=== PATIENT | female | born 1955 | race Caucasian/White ===

== ENCOUNTER 2019-07-23 13:54 | Outpatient (CLI) | payer MEDICARE, SELFPAY ==
--- NOTE | 2019-07-23 | XR_ITS ---
WS: [id number] FOOT RIGHT TECHNIQUE: 3 views of the right foot CLINICAL INFORMATION: PAIN IN METATARSUS COMPARISON: None. FINDINGS: Hallux valgus. No acute fractures. Soft tissue edema lower leg and ankle. Normal tarsal metatarsal al ignment. Normal metatarsals. Achilles enthesophyte. IP joint narrowing. XR/XR foot RT min 3V* [id number] IMPRESSION: 1. Soft tissue edema first digit. 2. No acute fractures or osteomyelitis. 3. Hallux valgus.
--- NOTE | 2019-07-23 | XR_ITS ---
WS: [id number] TOE RIGHT TECHNIQUE: 3 views of the right First toe CLINICAL INFORMATION: GREAT TOE PAIN RIGHT COMPARISON: None. FINDINGS: Soft tissue edema first digit. No acute fractures. No evidence of osteomyelitis. Anikacecilmiley eulaliacheri kapoorKarissa XR/XR toe RT min 2V [id number] IMPRESSION: Soft tissue edema first digit. No acute fractures
== END 2019-07-23 13:55 | disposition home or self-care (01) ==
PROVIDERS: Family Provider Family Medicine; PCP Family Medicine; Visit Provider Family Medicine
DX: Z76.89 Persons encountering health services in other specified circumstances (principal)

== ENCOUNTER 2019-11-21 12:42 | Outpatient (CLI) | payer MEDICARE, SELFPAY ==
--- NOTE | 2019-11-21 12:50 | CT_ITS ---
WS: [id number] CT abdomen w con* [id number] REASON FOR EXAM: ADENOCARCINOMA OF GALLBLADDER IV CONTRAST ADMINISTERED: Omnipaque 300, 95 mL. TOTAL EXAM DLP: 802.[address] scans at [facility] use at least one of these dose optimization techniques: automat ed exposure control; mA and/or kV adjustment per patient size (includes targeted exams where dose is matched to clinical indication); or iterative reconstruction. FINDINGS: The lower lung rodarte and mediastinum were normal. The liver shows mild fatty infiltration. Remanence of the gallbladder noted but no abnormality in what remains.. The common bile duct is dilat ed to 1.73 cm no definite tones or masses in the distal common duct are seen. The head of the pancreas is slightly prominent the body and tail are atrophic are poorly seen. This f indings was seen on previous exam dated 2013 and at that time ERCP was recommended. 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 The small bowel appear to be normal. The large bowel show no abnormalities. The pelvis was not completely evaluated. CT/CT abdomen w con* [id number] IMPRESSION: Remanence of the gallbladder is seen. The common bile duct is dilated severely in the head of the pancreas with abrup t changes and atrophy of the body and tail of pancreas are seen. The left kidney shows genital cross fusion No definite lymphadenopathy is seen in the aorta are inferior vena cava region
--- NOTE | 2019-11-21 12:50 | CT_ITS ---
WS: [id number] CT CHEST TECHNIQUE: Noncontrast CT of the chest with coronal and sagittal reformatted images. CLINICAL INFORMATION: MULTIPLE LUNG NODULES COMPARISON: 09/18/2014 and 03/15/2014 DLP: All CT scans at [facility] use at least one of these dose optimization techniques: automat ed exposure control; mA and/or kV adjustment per patient size (includes targeted exams where dose is matched to clinical indication); or iterative reconstruction. FINDINGS: Again seen are subcentimeter noncalcified bilateral pulmonary nodules. Subpleural nodules in the rig ht lower lobe are similar in configuration to 2014 and slight increase in size measuring 1.4 x 1.1 cm medially with the more lateral subpleural nodular opacity measuring 0.9 x 0.6 cm. Noncalcified nodul e right upper lobe measuring 3.8 mm is stable.Stable tiny subcentimeter nodule in the superior segmen t left lower lobe measuring 5 mm. Stable ectatic ascending thoracic aorta measuring 4.1 x 3.9 CM. Calcified granulomatous disease. Calc ified hilar mediastinal lymph nodes. Cholecystectomy clips. Adrenal glands are normal. No axillary ly mphadenopathy. No other suspicious pulmonary opacities. No acute pulmonary infiltrates. No consolidat ion or pleural fluid. CT/CT chest wo con [id number] IMPRESSION: 1. Subpleural nodules with pleural thickening in the right lower lobe have inc reased in size since measuring 1.4 x 1.1 cm medially and 0.9 x 0.6 cm laterally with associated increased pleural thickening today. Recommend 6 month follow-up. 2. Remainder of the subcentimeter previously described pulmonary nodules are s table. 3. Stable ectatic ascending thoracic aorta measuring 4.0 x 3.9 CM. 4. No mediastinal or hilar lymphadenopathy. 5. Vascular calcification including coronary. 6. Cholecystectomy clips.
[2019-11-21] MEDS: iodixanol 320 mg/mL 100mL Btl IV (13:03)
== END 2019-11-21 12:43 | disposition home or self-care (01) ==
LOC: RADWPI 12:50
PROVIDERS: Family Provider Family Medicine; PCP Family Medicine; Visit Provider Family Medicine
DX: R91.8 Other nonspecific abnormal finding of lung field (principal); C23 Malignant neoplasm of gallbladder; I77.810 Thoracic aortic ectasia; I25.10 Atherosclerotic heart disease of native coronary artery without angina pectoris; Q63.1 Lobulated, fused and horseshoe kidney
CPT/HCPCS: 71250; 74160; Q9967

== ENCOUNTER 2019-12-03 14:09 | Outpatient (CLI) | payer MEDICARE, SELFPAY ==
--- NOTE | 2019-12-03 14:25 | MR_ITS ---
WS: [id number] MRI BRAIN WITHOUT CONTRAST HISTORY: BRAIN MASS COMPARISON: 03/04/2017 TECHNIQUE: Diffusion imaging, multiplanar T1, T2 and FLAIR imaging obtained. No evidence for acute infarct or hemorrhage. Ellington-white matter differentiation is normal. Minimal chronic white matter changes. Again noted is a lobulated mass containing fat signal in the RI GHT suprasellar cistern measuring 10 x 7 mm. The lesion follows fat signal on all sequences without i ncrease in size. No hydrocephalus. Mass is just anterior to the tectal plate and inferior to the hypo thalamus. Ventricles are normal size. No inferior displacement of cerebellar tonsils. The sella turcica and pituitary gland are unremarkabl e. Posterior fossa is also unremarkable. Dural venous sinuses and capitan grande band of [place] demonstrate no abnormality on this unenhanced studies. Paranasal sinuses: Small mucous retention cyst in the posterior LEFT maxillary sinus. Mastoid air cells: Normal. Calvarium and scalp: Intact. MR/MR head wo con* [id number] IMPRESSION: 1. Stable lobulated fat signal lesion in the RIGHT suprasellar region. Mass me asures 10 x 7 mm and is stable. 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 2. Very minimal chronic microvascular ischemic disease. 3. No progression of disease since the prior study.
== END 2019-12-03 14:10 | disposition home or self-care (01) ==
LOC: RADWPI 14:11
PROVIDERS: Family Provider Family Medicine; PCP Family Medicine; Visit Provider Family Medicine
DX: G93.9 Disorder of brain, unspecified (principal)
CPT/HCPCS: 70551; A9579

== ENCOUNTER → 2020-03-19 15:14 | Outpatient (BNVA) | payer MEDICARE, SELFPAY | PROVIDERS: Family Provider Family Medicine; PCP Family Medicine; Visit Provider Podiatrist Foot & Ankle Surgery | DX: S99.921A Unspecified injury of right foot, initial encounter (principal); X58.XXXA Exposure to other specified factors, initial encounter | CPT/HCPCS: 73630 ==

== ENCOUNTER 2020-07-18 14:10 | Outpatient (CLI) | payer OTHER, SELFPAY ==
--- NOTE | 2020-07-18 14:40 | XR_ITS ---
WS: [id number] Bone mineral density performed on a [employer], 07/18/2020 Clinical data: POSTMENOPAUSAL Findings: The first 4 lumbar vertebral bodies demonstrated the bone mineral density of 1.103 g/cm2 for a young adult T score of -0.6. There is a dextroscoliosis of the lumbar spine. Measurement of the left hip reveals a bone mineral density of 0.883 g/cm2 with a young adult T score of -1.0. Measurement of the right hip reveals the bone mineral density of 0.982 g/cm2 for young adult T score of -0.2. XR/XR DEXA axial skeleton* [id number] Impression: The bone mineral density of the lumbar spine and both hips is normal.
--- NOTE | 2020-07-18 15:16 | MM_ITS ---
WS: [id number] BILATERAL DIGITAL SCREENING MAMMOGRAPHY WITH CAD CLINICAL INFORMATION: SCREENING HISTORY: Screening mammogram. Patient reported palpable lump left breast. COMPARISON: July 07, 2011 TECHNIQUE: Bilateral CC and MLO views. FINDINGS: Scattered fibroglandular densities bilaterally. Lucent centered calcifications. Palpable marker left breast. No underlying mammographic abnormalities. Recommend spot compression views and ultrasound are a of concern. Right breast is unremarkable and unchanged. MM/[place] [id number] IMPRESSION: BI-RADS: 0-Incomplete: Need additional imaging evaluation FOLLOW UP: Need Additional Imaging RECOMMEND LEFT BREAST DIAGNOSTIC MAMMOGRAPHY AND ULTRASOUND IN THE AREA OF PALP ABLE ABNORMALITY.
== END 2020-07-18 14:11 | disposition home or self-care (01) ==
PROVIDERS: PCP Family Medicine; Visit Provider Nurse Practitioner
DX: Z12.31 Encounter for screening mammogram for malignant neoplasm of breast (principal); Z78.0 Asymptomatic menopausal state; R92.1 Mammographic calcification found on diagnostic imaging of breast
CPT/HCPCS: 77067; 77080

== ENCOUNTER 2020-08-11 16:44 | Emergency (ER) | payer SELFPAY ==
[2020-08-11 17:07] VITALS: BP 170/96; PULSE 83; RESP 14; TEMP 37; O2SAT 97; BMI 30.7
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
[2020-08-11 17:31] VITALS: BP 179/115; PULSE 89; RESP 16; O2SAT 98
--- NOTE | 2020-08-11 17:48 | PC.NURSE ---
Read and agree with assessment.
== END 2020-08-11 17:58 | disposition home or self-care (01) ==
PROVIDERS: Emergency Provider Nurse Practitioner Family; PCP Family Medicine
DX: Z04.1 Encounter for examination and observation following transport accident (principal); Z79.01 Long term (current) use of anticoagulants; I48.91 Unspecified atrial fibrillation; I10 Essential (primary) hypertension; F17.210 Nicotine dependence, cigarettes, uncomplicated; V89.2XXA Person injured in unspecified motor-vehicle accident, traffic, initial encounter
CPT/HCPCS: 73562; 99282

== ENCOUNTER 2020-09-03 11:18 | Emergency (ER) | payer OTHER, SELFPAY ==
[2020-09-03 11:41] VITALS: BP 154/84; PULSE 64; RESP 18; TEMP 36.3; O2SAT 97; BMI 30.7
[2020-09-03 11:46] VITALS: BP 124/75; PULSE 56; RESP 18; O2SAT 98
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
[2020-09-03 12:59] LABS: Basophils % 0.8 %; Eosinophils # 0.2 10^3/uL (0.0-0.8); Eosinophils % 3.2 %; Hematocrit 44.1 % (37.0-47.0); Hemoglobin 13.7 g/dL (11.5-15.3); Lymphocytes # 1.3 10^3/uL (0.8-4.8); Lymphocytes % 24.9 %; Mean Corpuscular HGB Conc 31.1 g/dL (30.0-36.0); Mean Corpuscular Hemoglobin 27.6 pg (28.0-34.0); Mean Corpuscular Volume 88.9 fL (81-99); Mean Platelet Volume 10.2 fL (7.4-10.4); Monocytes # 0.6 10^3/uL (0.2-0.9); Monocytes % 11.5 %; Neutrophils # 2.98 10^3/uL (1.8-7.7); Neutrophils % 59.2 %; Nucleated Red Blood Cells % 0 %; Platelet Count 216 10^3/cmm (130-400); Red Blood Count 4.96 10^6/uL (4.1-5.3); Red Cell Distribution Width 13.7 % (12.1-15.1)
[2020-09-03 13:13] LABS: Alanine Aminotransferase 12 U/L (0-33); Albumin Level 3.9 g/dL (3.5-5.2); Alkaline Phosphatase 84 IU/L (35-105); Anion Gap 13.3 (5-19); Aspartate Amino Transferase 15 U/L (0-32); Blood Urea Nitrogen 17 mg/dL (8-23); C Reactive Protein 9.1 mg/L (0.0-4.9); Calcium 9.5 mg/dL (8.5-10.5); Carbon Dioxide 25 mmol/L (22-29); Chloride 105 mmol/L (98-107); Creatinine Clr Calc Pharmacy 76.4991; Globulin 3.5 g/dL (1.3-4.6); Glomerular Filtration Rate 71.8 mL/min (90-130); Glucose 92 mg/dL (65-115); Osmolality Calculated 289 mOsm/kg (285-295); Potassium 4.3 mmol/L (3.5-5.1); Sodium 139 mmol/L (136-145); Total Bilirubin 0.4 mg/dL (0.15-1.2); Total Protein 7.4 g/dL (6.6-8.7)
[2020-09-03 13:45] VITALS: BP 152/74; PULSE 72; RESP 55; TEMP 36.8; O2SAT 94
== END 2020-09-03 13:54 | disposition home or self-care (01) ==
PROVIDERS: Emergency Provider Physician Assistant; PCP Family Medicine
DX: M25.461 Effusion, right knee (principal); Z79.01 Long term (current) use of anticoagulants; I48.91 Unspecified atrial fibrillation; I10 Essential (primary) hypertension; F17.210 Nicotine dependence, cigarettes, uncomplicated
CPT/HCPCS: 80053; 85025; 86140; 99282

== ENCOUNTER 2020-12-02 16:20 | Outpatient (CLI) | payer MEDICARE, SELFPAY ==
--- NOTE | 2020-12-02 16:56 | MR_ITS ---
WS: [id number] MRI RIGHT KNEE NONCONTRAST TECHNIQUE: Axial PD, coronal PD fat sat, coronal PD, sagittal PD, and sagittal PD fat-sat images obta ined. CLINICAL INFORMATION: M25.461 - Effusion, right knee COMPARISON: None. FINDINGS: Distal quadriceps and patella tendons are intact. Hypertrophic patella. Small suprapatellar effusion. Small amount of prepatellar and infrapatellar soft tissue edema. Thinning and laxity involving the A CL with intrasubstance partial tear involving the anterior insertion and mid ACL. Recommend correlati on for ACL injury. PCL appears intact. Complex tear involving the posterior horn lateral meniscus with blunting of the posterior horn. Chron ic thinning of the medial meniscus which appears intact. 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 No subchondral edema. Normal medial and lateral patellar retinaculum. Medial and lateral collateral ligaments appea r intact. Moderate chondromalacia involving the medial and lateral joint compartments. MR/MR knee RT wo con* [id number] IMPRESSION: 1. Thinning with laxity involving the ACL with small intrasubstance tears invo lving the mid ACL and anterior ACL insertion. Recommend correlation for ACL inj ury. 2. PCL is intact. 3. Small suprapatellar effusion with prepatellar and infrapatellar soft tissue edema. No patellar fractures. 4. Moderate to advanced chondromalacia patella worse involving the lateral pat batsheva facet. 5. Complex tear involving posterior horn lateral meniscus with blunting of the posterior horn lateral meniscus. 6. Medial and lateral collateral ligaments appear intact. Outbridge grading:
== END 2020-12-02 16:21 | disposition home or self-care (01) ==
PROVIDERS: PCP Family Medicine; Visit Provider Orthopaedic Surgery
DX: M25.461 Effusion, right knee (principal); S83.271A Complex tear of lateral meniscus, current injury, right knee, initial encounter; X58.XXXA Exposure to other specified factors, initial encounter; M22.41 Chondromalacia patellae, right knee
CPT/HCPCS: 73721

== ENCOUNTER → 2021-01-22 15:55 | Outpatient (BNVA) | payer MEDICARE, SELFPAY | PROVIDERS: PCP Family Medicine; Visit Provider Internal Medicine Cardiovascular Disease | DX: I50.33 Acute on chronic diastolic (congestive) heart failure (principal); R06.02 Shortness of breath; R06.00 Dyspnea, unspecified | CPT/HCPCS: 80048; 83880 ==

== ENCOUNTER 2021-01-29 14:06 | Outpatient (CLI) | payer MEDICARE, SELFPAY ==
--- NOTE | 2021-01-29 14:15 | USCV_ITS ---
Kaity Ferro Age: 65 Gender: F : 1955 Exam Date: 01/29/2021 14:36 Ordering Phys: Ida Phipps MD ([email or web address]) Technologist: Benito Olson [place] [facility] [place] HISTORY: PROCEDURES: FINDINGS: There is no evidence of bilateral deep vein thrombosis. No evidence of superficial thrombosis in the bilateral saphenous system. No evidence of reflux was noted in the bilateral deep venous system. No venous reflux noted in the bilateral greater saphenous vein. No venous reflux noted in the bilateral small saphenous vein. The veins were found to be easily compressible with spontaneous blood flow. Non pulsatile flow pattern. CONCLUSIONS No evidence of DVT or superficial vein thrombosis in the above- mentioned identifiable veins. No significant venous reflux either in the deep or superficial veins bilaterally. Normal caliber veins bilaterally Venous dimensions as mentioned above Dr Ida Phipps MD FACC (Electronically Signed) Final Date: 29 January 2021 23:52 S
== END 2021-01-29 14:07 | disposition home or self-care (01) ==
PROVIDERS: PCP Family Medicine; Visit Provider Internal Medicine Cardiovascular Disease
DX: M79.89 Other specified soft tissue disorders (principal)
CPT/HCPCS: 93970

== ENCOUNTER → 2021-03-24 14:22 | Outpatient (BNVA) | payer MEDICARE, SELFPAY | PROVIDERS: PCP Family Medicine; Referring Provider Family Medicine; Visit Provider Orthopaedic Surgery | DX: M54.9 Dorsalgia, unspecified (principal) | CPT/HCPCS: 72110 ==

== ENCOUNTER 2021-04-17 09:19 | Outpatient (CLI) | payer MEDICARE, SELFPAY ==
--- NOTE | 2021-04-17 09:30 | MR_ITS ---
WS: [id number] MRI LUMBAR SPINE NONCONTRAST TECHNIQUE: Sagittal T1, T2 and STIR imaging. Axial T1 and T2 imaging. CLINICAL INFORMATION: M54.9 - Dorsalgia, unspecified COMPARISON: None. FINDINGS: Minimal lumbar curve. No acute compression. No high-grade central canal stenosis. Slight retrolisthes is L5 on S1. L1-L2: Normal. L2-L3: Mild annular bulging. Slight narrowing of the left subarticular recess. Spinal canal and betsy en are patent. Mild facet arthropathy. L3-L4: Mild annular bulging with slight effacement of ventral thecal sac. Slight impingement traversi ng right greater than left L4 nerve roots. Moderate facet arthropathy. Foramen are patent. L4-L5: Mild disc bulging with impingement on the right subarticular recess and traversing right L5 ne rve root. Moderate facet arthropathy. Spinal canal is patent. Foramen are patent. L5-S1: Slight anterolisthesis L5 on S1. Mild disc bulging with osteophytic ridging impinges the trave rsing left S1 nerve root in the subarticular recess. Mild central canal stenosis. Grade 1 anterolisth esis. Severe right and mild left foraminal narrowing. Advanced left facet arthropathy. Visualized pelvic bony structures: Normal. Paravertebral soft tissues: Normal. 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 Stable dilatation of the common bile duct at the pancreas. MR/MR lumbar spine wo con* [id number] IMPRESSION: 1. Mild lumbar curve. No acute compression. No high-grade central canal stenos is. 2. Grade 1 anterolisthesis L5 on S1 with mild central canal stenosis. Impingem ent traversing left S1 nerve root in the subarticular recess. 3. Severe right L5-S1 foraminal narrowing impinges the exiting right L5 nerve root. 4. Disc bulging L3-4 with impingement on the traversing right greater than lef t L4 nerve roots. 5. Disc bulging L4-5 impinges the traversing right L5 nerve root with mild rig ht foraminal narrowing. 6. Advanced facet arthropathy left L5-S1.
== END 2021-04-17 09:20 | disposition home or self-care (01) ==
LOC: RADSHAW 09:21
PROVIDERS: PCP Family Medicine; Visit Provider Orthopaedic Surgery
DX: M54.16 Radiculopathy, lumbar region (principal); M48.07 Spinal stenosis, lumbosacral region; M51.26 Other intervertebral disc displacement, lumbar region; M47.897 Other spondylosis, lumbosacral region
CPT/HCPCS: 72148

== ENCOUNTER 2021-07-16 12:26 | Outpatient (CLI) | payer MEDICARE, SELFPAY ==
--- NOTE | 2021-07-16 12:30 | CT_ITS ---
WS: [id number] CT CHEST WITHOUT INTRAVENOUS CONTRAST HISTORY: LUNG NODULE TECHNIQUE: Contiguous 5 mm axial imaging performed on the thorax. Coronal and sagittal reformats are submitted. All CT scans at [facility] use at least one of these dose optimization techniques: automated exposure control; mA and/or kV adjustment per patient size (includes targeted exams where dose is matched to clinical indication); or iterative reconstruction. CONTRAST: None DLP: 901.73 mGy.cm COMPARISON: 11/21/2019 and 09/18/2014 Lungs and central airway: Subpleural nodules at the RIGHT lung base have not significantly changed in size since 11/21/2019. Mild central cavitation within each nodule. The largest nodule posterior media lly measures 18 x 10 mm. The smaller more lateral nodule measures 7 x 14 mm. There is an additional n odule posterior to the LEFT superior major fissure measuring 5 mm which is stable. No increasing nodu le or new nodule. No pneumonia. Pleura: Normal. No pleural effusion. Heart and pericardium: Heart is moderately enlarged. Very small amount of pericardial thickening surr ounding the heart. Moderate coronary artery calcifications. Mediastinum and milli: Mediastinal and hilar lymph nodes are again identified. Some of these lymph nod es contain calcifications. Largest lymph node in the AP window measures 12 mm. Vessels: Atherosclerosis aorta and mild ectasia. Normal size pulmonary artery. Moderate coronary eleni ry calcification. Chest wall and lower neck: No soft tissue masses. Upper abdomen: Small hiatal hernia. Hepatic steatosis. Osseous structures: Prior cholecystectomy. Increase in thoracic kyphosis. CT/CT chest wo con [id number] IMPRESSION: 1. Subpleural nodules at the RIGHT lung base no change since 11/21/2019. 2. No new or increasing pulmonary nodules or mass. 3. Partially calcified mediastinal and hilar lymph nodes are stable. 4. Prior cholecystectomy. Hepatic steatosis. 5. Atherosclerosis aorta and coronary arteries.
== END 2021-07-16 12:27 | disposition home or self-care (01) ==
PROVIDERS: PCP Family Medicine; Visit Provider Family Medicine
DX: R91.8 Other nonspecific abnormal finding of lung field (principal); I70.0 Atherosclerosis of aorta; I25.10 Atherosclerotic heart disease of native coronary artery without angina pectoris; Z90.49 Acquired absence of other specified parts of digestive tract; K76.0 Fatty (change of) liver, not elsewhere classified
CPT/HCPCS: 71250

== ENCOUNTER → 2021-08-10 14:31 | Outpatient (BNVA) | payer MEDICARE, SELFPAY | PROVIDERS: PCP Family Medicine; Visit Provider Internal Medicine Cardiovascular Disease | DX: R06.02 Shortness of breath (principal); I11.0 Hypertensive heart disease with heart failure; I50.33 Acute on chronic diastolic (congestive) heart failure | CPT/HCPCS: 99214 ==

== ENCOUNTER 2021-11-13 12:21 | Outpatient (CLI) | payer MEDICARE, SELFPAY ==
--- NOTE | 2021-11-13 12:45 | USCV_ITS ---
Kaity Ferro Age: 66 Gender: F : 1955 Exam Date: 11/13/2021 13:13 Ordering Phys: Ida Phipps MD ([email or web address]) Technologist: BRIANA Exam Location: [facility] [place] Indication: DYSPNEA AND CHEST PAIN BP: 222 / 120 HR: 55 Rhythm: Sinus Technical Quality: Adequate MEASUREMENTS (Male / Female) Normal Values 2D ECHO LV Diastolic Diameter PLAX 4.8 cm 4.2 - 5.9 / 3.9 - 5.3 cm LV Systolic Diameter PLAX 2.7 cm IVS Diastolic Thickness 1.4 cm 0.6 - 1.0 / 0.6 - 0.9 cm IVS Systolic Thickness 1.9 cm LVPW Diastolic Thickness 1.4 cm 0.6 - 1.0 / 0.6 - 0.9 cm LVPW Systolic Thickness 2.2 cm LVOT Diameter 2.0 cm LV Ejection Fraction 2D Teich 75.3 % LV Ejection Fraction MOD 2C 58.8 % LV Ejection Fraction 2C AL 59.9 % LA Diameter 3.3 cm LA Width 4.2 cm LA Height 5.2 cm RA Width 3.8 cm RA Height 3.9 cm Aorta at Sinotubular Diameter 2.1 cm IVC Diameter 1.7 cm M-MODE Aortic Annulus Diameter 3.4 cm LA Ao Ratio MM 0.9 MV E Point Septal Separation 0.9 cm DOPPLER AV Peak Velocity 222.3 cm/s LVOT Peak Velocity 150.0 cm/s AV Area Cont Eq vti 2.1 cm squared AV Area Cont Eq pk 2.2 cm squared MV Peak Velocity 120.0 cm/s MV Area PHT 2.5 cm squared Mitral E to A Ratio 1.1 MV E' Velocity 55.0 cm/s Mitral E to MV E' Ratio 14.7 Mitral E to LV E' Lateral Ratio 14.3 Mitral E to LV E' Septal Ratio 15.3 TR Peak Velocity 289.9 cm/s TR Peak Gradient 33.6 mmHg TR Mean Velocity 240.5 cm/s TR Mean Gradient 24.4 mmHg TR Velocity Time Integral 99.2 cm TV Peak E Velocity 56.0 cm/s Right Atrial Pressure 3.0 mmHg Pulmonary Artery Systolic Pressu 36.6 mmHg PV Peak Velocity 120.0 cm/s RV Acceleration Time 0.1 s RV Ejection Time 0.4 s RV AcT/ET 0.2 FINDINGS Left Ventricle Normal left ventricular size and systolic function, EF 70 %. Mild left ventricular hypertrophy. Right Ventricle The right ventricle is normal in size and function. Right Atrium The right atrium is normal in size. Left Atrium Mildly increased left atrial size. Mitral Valve Moderate mitral annular calcification. Aortic Valve Thickened aortic valve. Features of aortic valve sclerosis Tricuspid Valve Trace tricuspid valve regurgitation. Estimated pulmonary artery peak systolic pressure of 37 mmHg Pulmonic Valve No gross abnormalities noted Pericardium Normal pericardium without effusion. Aorta Normal ascending aorta dimension. IVC The inferior vena cava pulmonary and hepatic veins appear normal. CONCLUSIONS Normal left ventricular size and systolic function, EF 70 %. Mild left ventricular hypertrophy. Moderate mitral annular calcification. Mildly increased left atrial size. Features of aortic valve sclerosis. Trace tricuspid valve regurgitation. Estimated pulmonary artery peak systolic pressure of 37 mmHg. Trace tricuspid valve regurgitation. Estimated pulmonary artery peak systolic pressure of 37 mmHg. There is no pericardial effusion. There are no intracardiac masses. Compared to the study from 03/22/2017, there may not be significant change Dr Ida Phipps MD FAC (Electronically Signed) Final Date: 13 November 2021 19:43 S
== END 2021-11-13 12:22 | disposition home or self-care (01) ==
PROVIDERS: PCP Family Medicine; Visit Provider Internal Medicine Cardiovascular Disease
DX: I08.2 Rheumatic disorders of both aortic and tricuspid valves (principal); R06.00 Dyspnea, unspecified
CPT/HCPCS: 93306

== ENCOUNTER 2021-11-16 07:17 | Outpatient (CLI) | payer MEDICARE, SELFPAY ==
[2021-11-16 08:40] VITALS: BMI 32.5
--- NOTE | 2021-11-16 08:40 | ECG_ITS ---
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 Interpretive Statements NAME OF STUDY: LEXISCAN SESTAMIBI STRESS TEST INDICATION: Chest Pain, PROCEDURE: At the baseline, the EKG revealed sinus bradycardia with a rate of [address]-T changes. Features of LVH. In the baseline blood pressure was 184/99 mm Hg with a heart rate of 50 beats/min. Lexiscan was infused over a period of 20 seconds. A total of 0.4 milligrams of Lexiscan was infused. The stress phase was continued for a total of 5 minutes. Heart rate at the end of the stress phase was 58 with a blood pressure 174/92. The EKG at the peak infusion revealed no significant changes. Sestamibi was injected 20 seconds after the Lexiscan infusion. Blood pressure at the end of the recovery phase was 181/91 with a heart rate of 56 per minute. CONCLUSION: 1. No significant EKG changes with the LexiScan infusion 2. No LexiScan induced chest pain or cardiac arrhythmia 3. Normal blood pressure and heart rate response 4. Sestamibi/sestamibi perfusion scan pending; see separate report. Electronically Signed On 11-20-2021 6:48:45 CDT by Ida Phipps M.D. [id number]
--- NOTE | 2021-11-16 08:41 | NMCV_ITS ---
NM dneis perf SPECT r/s* [id number] Kaity Ferro Age: 66 Gender: F : 1955 Exam Date: 11/16/2021 08:50 Ordering Phys: Ida Phipps MD ([email or web address]) Technologist: CORI Maldonado Exam Location: [facility] Indications: SHORTNESS OF BREATH, CHEST PAIN STRESS TEST Please see separate stress test report [facility] for full findings IMAGE PROTOCOL Rest/Stress 1 Lexiscan Day Radiopharmaceutical Dose (mCi) Administration Site Administered by Rest: Tc-99m 10.8 IV CORI Avila Sestamibi Stress:Tc-99m 32.7 IV CORI Avila Sestamibi Rest: 16-Nov-2021 60 Discovery 630 Stress: 16-Nov-2021 30 Discovery 630 0.4mg Lexiscan. Supine position only as patient was unable to lay prone. SPECT RESULTS Technical Quality: Good Raw Data Analysis: Normal Image Corrections: No attenuation or motion correction applied Summed Stress Score: 0 Summed Rest Score: 0 Summed Difference Score: 0 PERFUSION FINDINGS Uniform myocardial tracer uptake. No significant perfusion abnormalities FUNCTIONAL RESULTS (calculated via Gated SPECT) Stress Image LV EF (%): 79 Stress EDV (mL):103 TID: 0.83 Stress ESV (mL):22 FUNCTIONAL FINDINGS: Segmental wall motion analysis revealing no gross wall motion abnormalities. IMPRESSIONS 1. Unremarkable Myocardial perfusion imaging. 2. Normal LV ejection fraction of 39%. 3. LV wall motion analysis revealing no gross wall motion normalities. 4. Normal LV volume. 5. Low probability for coronary ischemia, based on the above findings 6. No similar previous studies are available for comparison Dr Ida Phipps MD [facility] (Electronically Signed) Final Date: 16 November 2021 17:02 S
[2021-11-16 09:46] VITALS: BP 181/91; PULSE 56
[2021-11-16] MEDS: regadenoson 0.4 Mg/5 ml Syringe IVP (09:46)
== END 2021-11-16 07:18 | disposition home or self-care (01) ==
PROVIDERS: PCP Family Medicine; Visit Provider Internal Medicine Cardiovascular Disease
DX: R06.02 Shortness of breath (principal); R07.9 Chest pain, unspecified
CPT/HCPCS: 78452; 93017; A9500; J2785

== ENCOUNTER → 2021-11-26 10:59 | Outpatient (BNVA) | payer MEDICARE, SELFPAY | PROVIDERS: PCP Family Medicine; Visit Provider Internal Medicine Cardiovascular Disease | DX: I49.5 Sick sinus syndrome (principal); G47.33 Obstructive sleep apnea (adult) (pediatric); R42 Dizziness and giddiness; I48.20 Chronic atrial fibrillation, unspecified; I10 Essential (primary) hypertension; E03.9 Hypothyroidism, unspecified; Z79.01 Long term (current) use of anticoagulants; R55 Syncope and collapse; R07.89 Other chest pain; F17.200 Nicotine dependence, unspecified, uncomplicated | CPT/HCPCS: 99214 ==

== ENCOUNTER 2021-11-26 11:54 | Observation (INO) | payer MEDICARE, SELFPAY ==
[2021-11-26] VITALS (15 sets, daily range): BP systolic 105–176; BP diastolic 75–132; PULSE 90–139; RESP 14–28; TEMP 36.7; O2SAT 90–98
--- NOTE | 2021-11-26 12:13 | ECG_ITS ---
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 Measurements Intervals [place] Rate: 114 P: IA: QRS: 38 QRSD: 98 T: 194 QT: 336 QTc: 464 Interpretive Statements ATRIAL FIBRILLATION WITH RAPID VENTRICULAR RESPONSE VOLTAGE CRITERIA FOR LVH [MEETS CRITERIA IN ONE OF: R(aVL), S(V1), R(V5), R(V5/V6)+S(V1)] ST DEVIATION AND MODERATE T-WAVE ABNORMALITY, CONSIDER LATERAL ISCHEMIA [-0.1+ mV T-WAVE IN I/aVL/V5/V6] ST DEVIATION AND MODERATE T-WAVE ABNORMALITY, CONSIDER INFERIOR ISCHEMIA [-0.1+ mV T-WAVE IN II/aVF] Compared to ECG 03/02/2017 10:15:30 No significant changes Electronically Signed On 11-26-2021 22:30:11 CDT by James Agrawal M.D. [id number] f
--- NOTE | 2021-11-26 12:13 | XR_ITS ---
WS: [email or web address] Exam: XR chest 1V portable [id number] Date/Time of Exam: 11/26/2021 12:17 PM Reason For Exam: light-headedness Comparison 03/02/2017. The lungs are clear and fully expanded. Cardiomediastinal structures are unremarkable for technique. There is rotation of the chest. No pleural effusions. Bony structures are intact. XR/XR chest 1V portable [id number] IMPRESSION: 1. No acute cardiopulmonary finding.
--- NOTE | 2021-11-26 12:17 | W.ED.GENADLT ---
HPI - General Adult General: Chief complaint: Dizziness Stated complaint: Vomiting Time Seen by Provider: 11/26/21 11:59 History of Present Illness: Patient is 66-year-old female with history of atrial fibrillation on apixaban who presents the emergency room after patient was seen earlier today at Dr. Phipps's office for complaints of lightheadedness. Patient tells me that around 11:15 AM, patient suddenly developed lightheadedness and vertigo sensation. The vertigo lasts sensation lasting for 5 to 10 minutes. Shortly after, patient has been experiencing lightheadedness throughout last hour. Patient denies any focal weakness in the arms or legs, language difficulty, facial droop or gait imbalance. Patient feels very lightheaded upon standing and ambulation. Patient denies any associate chest pain, short of breath or palpitation with the episodes of lightheadedness. Denies nauesea/vomiting, fever/chill, abdominal pain, dysuria/hematuria/polyuria, diarrhea/melena/hematochezia. Onset:1 hr ago Duration:ongoing Location:office Severity:moderate Associated symptoms: Deny chest pain, dyspnea, nausea, rash, palpitations or vomiting Review of Systems Const: Denies: fever(s) or chills Eyes: Denies: change in vision ENMT: Denies: mouth pain Card: Denies: chest pain or palpitations Resp: Denies: dyspnea or non-productive cough GI: Denies: abdominal pain, nausea, vomiting or diarrhea : Denies: dysuria Musc: Denies: extremity pain Skin/Breast: Denies: rash or new lesions Neuro: Reports: other (+vertigo, light-headedness); Denies: weakness in extremities Psych: Reports: other (Normal mood) Chance/Lymph: Denies: easy bruising PFSH ED PFSH: Medical History Adenocarcinoma of gallbladder Atrial fibrillation 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 Brother CAD (coronary artery disease) Brother , 2 brothers of heart disease CAD (coronary artery disease) Denies family history of Diabetes Clotting disorder Dementia Hyperlipidemia Psychiatric illness Chronic kidney disease (CKD) Suicide Anesthesia complication Bleeding disorder Family history of premature coronary artery disease Lung disease Cancer Hypertension Stroke Social History Smoking and tobacco status: current every day smoker Alcohol intake: never Physical Exam Const: COMMON NORMALS: alert HENMT: COMMON NORMALS: atraumatic HEAD & SCALP: atraumatic MOUTH: moist mucous membranes not abnormal Eye: COMMON NORMALS: EOMs intact bilaterally and conjunctivae normal CONJUNCTIVA: Yes conjunctivae normal Neck/C-Spine: COMMON NORMALS: full ROM and supple Resp: COMMON NORMALS: normal respiratory effort and clear to auscultation bilaterally AUSCULTATION: clear to auscultation bilaterally Cardio: COMMON NORMALS: regular rate RATE: regular rate GI: COMMON NORMALS: Soft to palpation and non-tender PALPATION: Yes Soft to palpation Extremity: COMMON NORMALS: full ROM Neuro: SENSORIUM/ORIENTATION: Yes alert MOTOR EXAM: No Abnormal motor strength present and Other motor observations present (no focal motor deficits) Psych: COMMON NORMALS: speech normal SPEECH: Yes normal speech MOOD & AFFECT: Yes euthymic mood Course Vital Signs: Vital signs: Vital Signs Temperature 98.4 F 11/27/21 04:00 Pulse Rate 86 11/27/21 10:02 Respiratory Rate 22 H 11/27/21 10:02 Blood Pressure 102/62 11/27/21 10:02 Pulse Oximetry 96 11/27/21 09:56 [facility] - General Adult Medical Decision Making 66-year-old female presenting to the emergency room with concerns of atrial fibrillation with RVR. Patient received multiple doses of rate controlling medicine and still continues to be mildly tachycardic. Patient will be admitted for observation and rate control. D-dimer TSH/T4 within normal limit. Dispositin: admission Lab Data : 11/27/21 04:51 11/27/21 04:51 Radiology Impressions Chest X-Ray 11/26/21 12:13 IMPRESSION: 1. No acute cardiopulmonary finding. Laboratory Results WBC 7.0 10^3/uL (4.0-10.0) 11/26/21 12:30 RBC 5.68 10^6/uL (4.1-5.3) H 11/26/21 12:30 Hgb 13.9 g/dL (11.5-15.3) 11/26/21 12:30 Hct 42.6 % (37.0-47.0) 11/26/21 12:30 MCV 75.0 fl (81-99) L 11/26/21 12:30 MCH 24.5 pg (28.0-34.0) L 11/26/21 12:30 MCHC 32.6 g/dL (30.0-36.0) 11/26/21 12:30 RDW 16.6 % (12.1-15.1) H 11/26/21 12:30 Plt Count 243 10^3/cmm (130-400) 11/26/21 12:30 MPV 11.1 fL (7.4-10.4) H 11/26/21 12:30 Neut % (Auto) 67.3 % 11/26/21 12:30 Lymph % (Auto) 21.7 % 11/26/21 12:30 Hartley % (Auto) 7.6 % 11/26/21 12:30 Eos % (Auto) 2.0 % 11/26/21 12:30 Baso % (Auto) 1.0 % 11/26/21 12:30 Neut # (Auto) 4.72 10^3/uL (1.8-7.7) 11/26/21 12:30 Lymph # (Auto) 1.5 10^3/uL (0.8-4.8) 11/26/21 12:30 Hartley # (Auto) 0.5 10^3/uL (0.2-0.9) 11/26/21 12:30 Eos # (Auto) 0.1 10^3/uL (0.0-0.8) 11/26/21 12:30 Baso # (Auto) 0.1 10^3/uL (0.0-0.1) 11/26/21 12:30 Nucleated RBC % (auto) 0 % 11/26/21 12:30 Nucleated RBCs # 0.0 /100WBC 11/26/21 12:30 D-Dimer 0.53 ug/mIFEU (0-0.59) 11/26/21 15:42 Sodium 139 mmol/L (136-145) 11/26/21 16:53 Potassium 3.7 mmol/L (3.5-5.1) 11/26/21 16:53 Chloride 105 mmol/L (98-107) 11/26/21 16:53 Carbon Dioxide 21 mmol/L (22-29) L 11/26/21 16:53 Anion Gap 16.7 (5-19) 11/26/21 16:53 BUN 18 mg/dL (8-23) 11/26/21 16:53 Creatinine 1.0 mg/dL (0.5-0.9) H 11/26/21 16:53 GFR Calculation 55.3 mL/min (90-130) L 11/26/21 16:53 Glucose 91 mg/dL (65-115) 11/26/21 16:53 Calculated Osmolality 289 mOsm/kg (285-295) 11/26/21 16:53 Calcium 9.1 mg/dL (8.5-10.5) 11/26/21 16:53 Magnesium 2.0 mg/dL (1.7-2.3) 11/26/21 16:53 Total Bilirubin 0.4 mg/dL (0.15-1.2) 11/26/21 16:53 AST 19 U/L (0-32) 11/26/21 16:53 ALT 15 U/L (0-33) 11/26/21 16:53 Alkaline Phosphatase 75 IU/L (35-105) 11/26/21 16:53 Troponin T Baseline 12 ng/L (0-10) H 11/26/21 16:53 Total Protein 7.6 g/dL (6.6-8.7) 11/26/21 16:53 Albumin 4.0 g/dL (3.5-5.2) 11/26/21 16:53 Globulin 3.6 g/dL (1.3-4.6) 11/26/21 16:53 Lipase 42 U/L (13-60) 11/26/21 16:53 TSH 1.49 uIU/mL (0.27-4.20) 11/26/21 16:53 Free T4 1.27 ng/dL (0.82-1.77) 11/26/21 16:53 Urine Color Yellow (Yellow) 11/26/21 15:28 Urine Appearance Clear (CLEAR) 11/26/21 15:28 Urine pH 6.5 (5-7) 11/26/21 15:28 Ur Specific Armstrong 1.005 (1.005-1.030) 11/26/21 15:28 Urine Protein Neg (Negative) 11/26/21 15:28 Urine Glucose (UA) Norm (Normal) 11/26/21 15:28 Urine Ketones Negative (Negative) 11/26/21 15:28 Urine Blood Neg (Negative) 11/26/21 15:28 Urine Nitrate Negative (Negative) 11/26/21 15:28 Urine Bilirubin Neg (Negative) 11/26/21 15:28 Urine Urobilinogen Norm mg/dL (Negative) 11/26/21 15:28 Ur Leukocyte Esterase Negative (Negative) 11/26/21 15:28 Imaging Data Other Imaging: Radiologist's impression: [address] [address] XRay Report Signed Patient: Kaity Ferro Unit #: [id number] : 1955 Age/Sex: 66 / F ADM Date: 11/26/21 Loc: ER Room/Bed: Attending Dr: Ordering Provider/Ordering MD: Bran Duffy MD Date of Service: 11/26/21 Procedure(s): XR chest 1V portable [id number] Accession Number(s): [id number] Report Number: [id number] WS: [email or web address] Exam: XR chest 1V portable [id number] Date/Time of Exam: 11/26/2021 12:17 PM Reason For Exam: light-headedness Comparison 03/02/2017. The lungs are clear and fully expanded. Cardiomediastinal structures are unremarkable for technique. There is rotation of the chest. No pleural effusions. Bony structures are intact. XR/XR chest 1V portable [id number] IMPRESSION: 1. No acute cardiopulmonary finding. ? Dictated By: Moise Lott DO Signed By: Moise Lott DO Signed Date/Time: 11/26/21 1240 DD/ 1239 Discharge Plan Discharge Patient Disposition: Admitted As Inpatient Admit Provider: Domi Child Clinical Impression: Light headedness, Atrial fibrillation with RVR Condition: Stable Coding Level of Care Code ED Central Office Trouble Shooter for Chg Fwd Exam Comprehensive
--- NOTE | 2021-11-26 12:24 | PC.NURSE ---
EKG done at 1215 and shown to ER doctor
[2021-11-26] MEDS: metoprolol tartrate 1 mg/1 mL SDV 5 mL 5 MG IVP ×2 (12:38→13:55)
[2021-11-26 12:39] LABS: Basophils # 0.1 10^3/uL (0.0-0.1); Eosinophils # 0.1 10^3/uL (0.0-0.8); Hematocrit 42.6 % (37.0-47.0); Hemoglobin 13.9 g/dL (11.5-15.3); Lymphocytes # 1.5 10^3/uL (0.8-4.8); Lymphocytes % 21.7 %; Mean Corpuscular HGB Conc 32.6 g/dL (30.0-36.0); Mean Corpuscular Hemoglobin 24.5 pg (28.0-34.0); Mean Platelet Volume 11.1 fL (7.4-10.4); Monocytes # 0.5 10^3/uL (0.2-0.9); Monocytes % 7.6 %; Neutrophils # 4.72 10^3/uL (1.8-7.7); Neutrophils % 67.3 %; Nucleated Red Blood Cells % 0 %; Platelet Count 243 10^3/cmm (130-400); Red Blood Count 5.68 10^6/uL (4.1-5.3); Red Cell Distribution Width 16.6 % (12.1-15.1)
[2021-11-26] MEDS: sodium chloride 0.9% 1,000 ML 999 ML IV (12:40)
--- NOTE | 2021-11-26 14:13 | ECG_ITS ---
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 Measurements Intervals [place] Rate: 103 P: VT: QRS: 20 QRSD: 89 T: 231 QT: 363 QTc: 477 Interpretive Statements ATRIAL FIBRILLATION WITH RAPID VENTRICULAR RESPONSE VOLTAGE CRITERIA FOR LVH [MEETS CRITERIA IN ONE OF: R(aVL), S(V1), R(V5), R(V5/V6)+S(V1)] ST DEVIATION AND MODERATE T-WAVE ABNORMALITY, CONSIDER ANTEROLATERAL ISCHEMIA [-0.1+ mV T-WAVE IN V3-V6] ST DEVIATION AND MODERATE T-WAVE ABNORMALITY, CONSIDER INFERIOR ISCHEMIA [-0.1+ mV T-WAVE IN II/aVF] Compared to ECG 11/26/2021 12:14:13 No significant changes Electronically Signed On 11-26-2021 22:31:58 CDT by James Agrawal M.D. [id number]
--- NOTE | 2021-11-26 14:17 | PC.NURSE ---
EKG done at 1415 and shown to ER doctor
--- NOTE | 2021-11-26 15:37 | PC.NURSE ---
PT placed on continuous NIBP, SpO2, and CM
[2021-11-26 16:12] LABS: Add Urine Microscopic? NO; Charge for UA Resulting for Rev
[2021-11-26 16:20] LABS: Bilirubin Urine Neg (Negative); Blood Urine Neg (Negative); Glucose Urine UA Norm (Normal); Ketones Urine Negative (Negative); Leukocyte Esterase Urine Negative (Negative); Nitrate Urine Negative (Negative); Protein Urine Neg (Negative); Specific Gravity, Urine 1.005 (1.005-1.030); Urine Appearance Clear (CLEAR); Urine Color Yellow (Yellow); Urobilinogen Urine Norm (Negative); pH Urine 6.5 (5-7)
[2021-11-26 17:03] LABS: D Dimer 0.53 ug/mIFEU (0-0.59)
[2021-11-26 17:31] LABS: Troponin(5th) Baseline 12 ng/L (0-10)
[2021-11-26 17:41] LABS: Alanine Aminotransferase 15 U/L (0-33); Alkaline Phosphatase 75 IU/L (35-105); Anion Gap 16.7 (5-19); Aspartate Amino Transferase 19 U/L (0-32); Blood Urea Nitrogen 18 mg/dL (8-23); Calcium 9.1 mg/dL (8.5-10.5); Carbon Dioxide 21 mmol/L (22-29); Chloride 105 mmol/L (98-107); Free T4 Free Thyroxine 1.27 ng/dL (0.82-1.77); Globulin 3.6 g/dL (1.3-4.6); Glomerular Filtration Rate 55.3 mL/min (90-130); Glucose 91 mg/dL (65-115); Lipase 42 U/L (13-60); Osmolality Calculated 289 mOsm/kg (285-295); Potassium 3.7 mmol/L (3.5-5.1); Sodium 139 mmol/L (136-145); Thyroid Stimulating Hormone 1.49 uIU/mL (0.27-4.20); Total Bilirubin 0.4 mg/dL (0.15-1.2); Total Protein 7.6 g/dL (6.6-8.7)
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
--- NOTE | 2021-11-26 19:20 | PC.NURSE ---
Attempted to call report, nurse unavailable and will call me back
[2021-11-26 19:48] LABS: Troponin 5 2HR 12.93 ng/L (0-10)
[2021-11-26 19:53] LABS: Troponin 5 2HR Delta 0.93 ABS# (0-10)
[2021-11-26] MEDS: hyDRALAzine 50 mg Tablet PO (20:25)
[2021-11-26] MEDS: dorzolamide 2% Op Soln 10 mL Btl 1 DROP EYE-BOTH (20:25)
[2021-11-26] MEDS: dilTIAZem 30 mg Tablet PO (20:25)
--- NOTE | 2021-11-26 20:52 | PC.NURSE ---
Admitted from ED via stretcher. Awake, Alert and oriented. Reports slight headache from not having caffeine for 3 days refusing imatrex as ordered per MD. CM = a-fib with rate 91-145. Respirations even and unlabored no reports of shortness of breath or difficulty breathing. No reports of chest pain. No reports of nausea, vomiting, or abdominal pain at present pain. Complete assessment done.
[2021-11-26] MEDS: HYDROcodone-acetaminophen 5-325 mg Tablet 1 TAB PO (21:57)
[2021-11-27] VITALS (10 sets, daily range): BP systolic 92–163; BP diastolic 62–111; PULSE 54–134; RESP 17–28; TEMP 36.8–36.9; O2SAT 90–96
[2021-11-27] MEDS: dilTIAZem 30 mg Tablet PO ×2 (01:47→08:25)
[2021-11-27 05:46] LABS: Basophils # 0.1 10^3/uL (0.0-0.1); Basophils % 1.1 %; Eosinophils # 0.2 10^3/uL (0.0-0.8); Eosinophils % 2.7 %; Hemoglobin 12.4 g/dL (11.5-15.3); Lymphocytes % 35.3 %; Mean Corpuscular HGB Conc 31.8 g/dL (30.0-36.0); Mean Corpuscular Hemoglobin 24.4 pg (28.0-34.0); Mean Corpuscular Volume 76.8 fl (81-99); Mean Platelet Volume 10.7 fL (7.4-10.4); Monocytes # 0.5 10^3/uL (0.2-0.9); Monocytes % 9.6 %; Neutrophils # 2.89 10^3/uL (1.8-7.7); Neutrophils % 51.1 %; Nucleated Red Blood Cells % 0 %; Platelet Count 201 10^3/cmm (130-400); Red Blood Count 5.08 10^6/uL (4.1-5.3); Red Cell Distribution Width 16.4 % (12.1-15.1); White Blood Count 5.6 10^3/uL (4.0-10.0)
[2021-11-27 06:02] LABS: Anion Gap 17.6 (5-19); Blood Urea Nitrogen 19 mg/dL (8-23); Calcium 8.9 mg/dL (8.5-10.5); Carbon Dioxide 21 mmol/L (22-29); Chloride 106 mmol/L (98-107); Glomerular Filtration Rate 55.3 mL/min (90-130); Glucose 86 mg/dL (65-115); Osmolality Calculated 294 mOsm/kg (285-295); Potassium 3.6 mmol/L (3.5-5.1); Sodium 141 mmol/L (136-145)
[2021-11-27 07:51] LABS: Glucose Point of Care 90 mg/dL (70-110)
[2021-11-27] MEDS: brimonidine 0.2% Op Soln 5 mL Btl 1 DROP EYE-BOTH (08:53)
[2021-11-27] MEDS: dorzolamide 2% Op Soln 10 mL Btl 1 DROP EYE-BOTH (08:53)
[2021-11-27] MEDS: hyDRALAzine 50 mg Tablet PO (08:53)
[2021-11-27] MEDS: carvedilol 25 mg Tablet PO (08:53)
[2021-11-27] MEDS: lisinopril 20 mg Tablet 40 MG PO (08:54)
[2021-11-27] MEDS: amlodipine 5 mg Tablet 2.5 MG PO (08:54)
[2021-11-27] MEDS: levothyroxine 50 mcg Tablet PO (08:54)
[2021-11-27] MEDS: apixaban 5 mg Tablet PO (08:54)
--- NOTE | 2021-11-27 09:36 | PM.DCS ---
Discharge Providers Date of Admission: 11/26/21 18:32 Date of Discharge: November 27, 2021 Attending Provider at Admission: Domi Child MD Attending Provider at Discharge: Darrius Mayen MD Primary Care Provider: Mega Martinez MD Diagnoses at Discharge Discharge Diagnosis (1) Light headedness: Status: Acute (2) Atrial fibrillation with RVR: Status: Acute Reason for Visit Reason for Visit: Vomiting Hospital Course Hospital Course Alisia cooperative 66-year-old female who presented to the hospital because of social stressors at home which aggravated her anxiety and A. fib RVR. In the ER she required multiple IV boluses of AV david blocking agent hence hospitalist was requested to watch her heart rate overnight. She did not require Cardizem drip. I have continued her home dose of Coreg, added lowest-dose dose of long-actingCardizem at the time of discharge. On telemetry her lowest heart rate was in 60s, highest 110. She remained hypertensive, I have increased the dose of hydralazine at the time of discharge. Of note, she has had bradycardic/sinus pauses episode in the past, I would like her to follow-up with Dr. Phipps, will request event monitor. Electrolytes replenished, TSH normal. D-dimer unremarkable Physical Exam Narrative: Alisia vega female S1, S2 variable Euvolemic Abdomen soft Saturating well on room air Nonfocal neuro exam EOMI, PERRLA Discharge Data Studies Completed and Pending Completed Studies During Hospitalization Category Date Time Status XR chest 1V portable [id number] Urgent Exams 11/26/21 12:13 Completed Radiology Impressions Chest X-Ray 11/26/21 12:13 IMPRESSION: 1. No acute cardiopulmonary finding. Laboratory Results WBC 5.6 10^3/uL (4.0-10.0) 11/27/21 04:51 RBC 5.08 10^6/uL (4.1-5.3) 11/27/21 04:51 Hgb 12.4 g/dL (11.5-15.3) 11/27/21 04:51 Hct 39.0 % (37.0-47.0) 11/27/21 04:51 MCV 76.8 fl (81-99) L 11/27/21 04:51 MCH 24.4 pg (28.0-34.0) L 11/27/21 04:51 MCHC 31.8 g/dL (30.0-36.0) 11/27/21 04:51 RDW 16.4 % (12.1-15.1) H 11/27/21 04:51 Plt Count 201 10^3/cmm (130-400) 11/27/21 04:51 MPV 10.7 fL (7.4-10.4) H 11/27/21 04:51 Neut % (Auto) 51.1 % 11/27/21 04:51 Lymph % (Auto) 35.3 % 11/27/21 04:51 Lares % (Auto) 9.6 % 11/27/21 04:51 Eos % (Auto) 2.7 % 11/27/21 04:51 Baso % (Auto) 1.1 % 11/27/21 04:51 Neut # (Auto) 2.89 10^3/uL (1.8-7.7) 11/27/21 04:51 Lymph # (Auto) 2.0 10^3/uL (0.8-4.8) 11/27/21 04:51 Lares # (Auto) 0.5 10^3/uL (0.2-0.9) 11/27/21 04:51 Eos # (Auto) 0.2 10^3/uL (0.0-0.8) 11/27/21 04:51 Baso # (Auto) 0.1 10^3/uL (0.0-0.1) 11/27/21 04:51 Nucleated RBC % (auto) 0 % 11/27/21 04:51 Nucleated RBCs # 0.0 /100WBC 11/27/21 04:51 D-Dimer 0.53 ug/mIFEU (0-0.59) 11/26/21 15:42 Sodium 141 mmol/L (136-145) 11/27/21 04:51 Potassium 3.6 mmol/L (3.5-5.1) 11/27/21 04:51 Chloride 106 mmol/L (98-107) 11/27/21 04:51 Carbon Dioxide 21 mmol/L (22-29) L 11/27/21 04:51 Anion Gap 17.6 (5-19) 11/27/21 04:51 BUN 19 mg/dL (8-23) 11/27/21 04:51 Creatinine 1.0 mg/dL (0.5-0.9) H 11/27/21 04:51 GFR Calculation 55.3 mL/min (90-130) L 11/27/21 04:51 Glucose 86 mg/dL (65-115) 11/27/21 04:51 POC Glucose 90 mg/dL (70-110) 11/27/21 07:45 Calculated Osmolality 294 mOsm/kg (285-295) 11/27/21 04:51 Calcium 8.9 mg/dL (8.5-10.5) 11/27/21 04:51 Magnesium 2.0 mg/dL (1.7-2.3) 11/27/21 04:51 Total Bilirubin 0.4 mg/dL (0.15-1.2) 11/26/21 16:53 AST 19 U/L (0-32) 11/26/21 16:53 ALT 15 U/L (0-33) 11/26/21 16:53 Alkaline Phosphatase 75 IU/L (35-105) 11/26/21 16:53 Troponin T Baseline 12 ng/L (0-10) H 11/26/21 16:53 Troponin T 120 Minute 12.93 ng/L (0-10) H 11/26/21 18:53 Delta Troponin T 0.93 ABS# (0-10) 11/26/21 18:53 Total Protein 7.6 g/dL (6.6-8.7) 11/26/21 16:53 Albumin 4.0 g/dL (3.5-5.2) 11/26/21 16:53 Globulin 3.6 g/dL (1.3-4.6) 11/26/21 16:53 Lipase 42 U/L (13-60) 11/26/21 16:53 TSH 1.49 uIU/mL (0.27-4.20) 11/26/21 16:53 Free T4 1.27 ng/dL (0.82-1.77) 11/26/21 16:53 Urine Color Yellow (Yellow) 11/26/21 15:28 Urine Appearance Clear (CLEAR) 11/26/21 15:28 Urine pH 6.5 (5-7) 11/26/21 15:28 Ur Specific N[place]mith 1.005 (1.005-1.030) 11/26/21 15:28 Urine Protein Neg (Negative) 11/26/21 15:28 Urine Glucose (UA) Norm (Normal) 11/26/21 15:28 Urine Ketones Negative (Negative) 11/26/21 15:28 Urine Blood Neg (Negative) 11/26/21 15:28 Urine Nitrate Negative (Negative) 11/26/21 15:28 Urine Bilirubin Neg (Negative) 11/26/21 15:28 Urine Urobilinogen Norm mg/dL (Negative) 11/26/21 15:28 Ur Leukocyte Esterase Negative (Negative) 11/26/21 15:28 Vitals Last Vital Signs Temp 98.4 F 11/27/21 04:00 Pulse 89 11/27/21 08:00 Resp 28 H 11/27/21 08:00 BP 157/111 11/27/21 08:00 Pulse Ox 93 11/27/21 08:00 Discharge Plan Discharge Patient Disposition: Home Condition: Stable Prescriptions: New Cardizem LA 120 mg tablet extended release 24 hr 120 mg PO DAILY Qty: 30 3RF hydralazine 100 mg tablet 100 mg PO TID Qty: 90 3RF Continued amlodipine 2.5 mg tablet 2.5 mg PO DAILY 0RF carvedilol 25 mg tablet 25 mg PO BID 0RF Eliquis 5 mg tablet 5 mg PO BID 0RF levothyroxine 50 mcg capsule 50 mcg PO DAILY 0RF hydrocodone-acetaminophen 5-325 mg tablet 1 tab PO BID PRN (Reason: Pain) 0RF furosemide 20 mg tablet 20 mg PO DAILY PRN (Reason: Edema) 0RF latanoprost 0.005 % drops 1 drop ophthalmic (eye) DAILY 0RF Rx Instructions: both eyes naproxen [Naprosyn] 500 mg tablet 500 mg PO BID PRN (Reason: pain) 0RF dorzolamide 2 % drops 1 drp ophthalmic (eye) TID 0RF Rx Instructions: both eyes brimonidine 0.2 % drops 1 drp ophthalmic (eye) BID 0RF Rx Instructions: both eyes albuterol sulfate 90 mcg/actuation HFA aerosol inhaler 1 - 2 puff INHALATION Q4H PRN (Reason: Shortness Of Breath) 0RF lisinopril 40 mg tablet 40 mg PO DAILY 0RF Discontinued hydralazine 50 mg tablet 50 mg PO TID Qty: 270 3RF Discharge Orders: Discharge Order (Routine); Ordered 11/27/21 Ordered By: Darrius Mayen Other Ambulatory Orders: MCT/Event Monitor 21 Days (Routine) Timeframe: 21 Days Facility: [facility] - Location: Radiology Ordered By: Darrius Mayen Referrals: heart [Other] - 1-3 days (please see order for mct/event monitor 21 days . please go to [facility] for placement of monitor .This will be on Tuesday time of 2:45 pm .) Ida Phipps MD [Physician] - ( follow up cardiology appointment. January time of 3:15 pm ) Mega Martinez MD [Primary Care Provider] - (post follow up from hospital admisson . at Tuesday,at time of 2:30 pm ) Patient Instructions: Diltiazem (By mouth) (Cardizem, Cardizem CD, Cardizem LA, Cardizem SR), Hydralazine (By mouth), A-fib (Atrial Fibrillation) (DC), Syncope (DC), Near Syncope (DC), Fall Prevention (DC), Opioid Safety Discharge Attestations Time Spent in Discharge Care*: less than 30 min Quality Metrics Clinical Quality Measures [ No reported AMI, CVA or VTE this stay] Coding Level of Care Code Acute Chg FW DC note Diagnoses Light headedness R42 Atrial fibrillation with RVR I48.91
--- NOTE | 2021-11-27 10:30 | PC.CHAP ---
Pastoral Care Encounter/Spiritual Assessment Type of Contact [] Declined vamp maker visit [] Patient/Family/Request visit [] Outpatient visit [] Follow-up visit [] Physician referral [] Code/Alert [x] Routine visit [] Staff referral [] Actively dying [] Patient sleeping [] Family support [] [] Out of room [] Palliative care [] [] Receiving care in room [] Pre-surgical visit [] Trauma [] Long length of stay [x] ICU visit [] Other: Relational/Emotional Strength [] Patient feels connected with others/family/visitors/staff [] Distress [] Loneliness/isolation [] Abandonment Spirituality of Patient [] Person of Tana [] Attends Judaism of their Tana [] Believes in Prayer [] Reads Bible or Baptist materials [] There are Spiritual issues to be addressed Brokerage Office Manager Interventions [x Prayer [x] Active listening [x] Non-anxious presence [] Spiritual/emotional support [] Crisis/trauma care [] Spiritual counseling [] Bereavement support [] Provided bereavement packet [] Provided Bible/devotional materials [] Provided toy/stuffed animal, coloring book to patient or family member [] Provided Communion [] Anointing/[place] [] Salvation [x] Completed spiritual assessment [] Other: Impact on Illness or Injury [] Angry [] Fearful [] Anxious [] Often cries [] Exhaustion [] Unable to work [] Unable to attend presybeterian [] Unable to walk/stand [] Unable to read [] Unable to drive [] Unable to eat/drink [] Unable to sleep [] Unable to be with family [] Patient intubated [] Other: Summary feeling stronger... setting up in bed Time spent with patient 5 min
== END 2021-11-27 10:52 | disposition home or self-care (01) ==
LOC: ER 17:46 → ICU 18:33
PROVIDERS: Admitting Provider Internal Medicine; Emergency Provider Emergency Medicine; PCP Family Medicine; Visit Provider Internal Medicine
DX: R42 Dizziness and giddiness (principal); I48.91 Unspecified atrial fibrillation; Z79.01 Long term (current) use of anticoagulants; I10 Essential (primary) hypertension; F17.210 Nicotine dependence, cigarettes, uncomplicated
CPT/HCPCS: 36416; 71045; 80048; 80053; 81003; 82962; 83690; 83735; 84439; 84443; 84484; 85025; 85378; 93005; 96361; 96374; 96376; 99285; G0378; J3490; J7030

== ENCOUNTER → 2021-12-01 14:54 | Outpatient (BNVA) | payer MEDICARE, SELFPAY | PROVIDERS: PCP Family Medicine; Visit Provider Internal Medicine Cardiovascular Disease | DX: I49.5 Sick sinus syndrome (principal); I48.91 Unspecified atrial fibrillation | CPT/HCPCS: 93229 ==

== ENCOUNTER 2021-12-09 11:24 | Inpatient (IN) | payer MEDICARE, SELFPAY ==
[2021-12-09] VITALS (103 sets, daily range): BP systolic 107–161; BP diastolic 76–128; PULSE 88–158; RESP 12–39; TEMP 36.4–36.5; O2SAT 88–99
--- NOTE | 2021-12-09 12:03 | XR_ITS ---
WS: [id number] Portable AP upright chest, 12/09/2021 Clinical Data: chest pain Comparison: Portable chest, 11/26/2021. Findings: No nodules, masses or effusions are seen. The heart is normal. The pulmonary vascularity is not increased. No pneumonia or pneumothorax is seen. The aortic arch and descending thoracic aorta s how mild tortuosity. Monitor leads are on the chest wall. The patient is rotated slightly. XR/XR chest 1V portable [id number] Impression: Atherosclerosis.
--- NOTE | 2021-12-09 12:03 | ECG_ITS ---
[facility] Test Date: 2021-12-09 Pat Name: Kaity Ferro Department: Room: Gender: Female Insurance Claims Adjuster: : 1955 Requested By: Jono Pagan Order Number: [id number] Kayleigh MD: James Agrawal M.D. Measurements Intervals [place] Rate: 144 P: WA: QRS: 60 QRSD: 97 T: 224 QT: 292 QTc: 452 Interpretive Statements ATRIAL FIBRILLATION WITH RAPID VENTRICULAR RESPONSE POSSIBLE LEFT VENTRICULAR HYPERTROPHY [VOLTAGE CRITERIA PLUS LAE OR QRS WIDENING] ST DEVIATION AND MODERATE T-WAVE ABNORMALITY, CONSIDER ANTEROLATERAL ISCHEMIA [-0.1+ mV T-WAVE IN V3-V6] ST DEVIATION AND MODERATE T-WAVE ABNORMALITY, CONSIDER INFERIOR ISCHEMIA [-0.1+ mV T-WAVE IN II/aVF] Compared to ECG 11/26/2021 14:13:53 No significant changes Electronically Signed On 12-09-2021 17:55:06 CDT by James Agrawal M.D. [email or web address]
--- NOTE | 2021-12-09 12:05 | ED_ITS ---
HPI - Chest Pain General: Chief Complaint: Chest Pain Stated Complaint: Weak, arm pain, chest pain Time Seen by Provider: 12/09/21 11:55 Source: patient and family Mode of arrival: ambulatory Limitations: no limitations History of Present Illness: This patient made her way to the emergency department this morning because she developed sensation of rapid heart rate with associated chest discomfort approximately hour prior to arrival. She states she had arrived at the [facility] when her symptoms began. She states that feels similar to that that she is experienced previously. She was in the hospital last week for similar symptoms. She states that she has been taking all her medications prescribed faithfully. She states that she had a heart attack many years ago but did not have angiography or stent placement at that time. She does admit to tobacco use but denies any significant caffeine or other stimulant use. She states her symptoms are improved from that which they were at the time of her symptom onset. MD complaint: chest discomfort Pain location: substernal Pain radiation: right arm and left arm Quality: heaviness Relieving factors: nothing Associated symptoms: Reports dyspnea; Deny abdominal pain, fever(s), nausea or vomiting Risk Factors: Coronary artery disease risk factors: smoking history Related Data: On Oral Contraceptives: No Review of Systems Const: Denies: fever(s) or chills Eyes: Denies: change in vision ENMT: Denies: throat pain, odynophagia, mouth pain, nasal discharge or nasal congestion Card: Reports: lightheadedness Resp: Reports: dyspnea; Denies: productive cough, non-productive cough or wheezing GI: Denies: abdominal pain, nausea, vomiting or diarrhea : Denies: flank pain, difficulty voiding, dysuria or urinary frequency Musc: Denies: neck pain, back pain, extremity pain or extremity swelling Skin/Breast: Denies: rash Neuro: Denies: headache(s), numbness in extremities or weakness in extremities Psych: Denies: anxiety or depression Endo: Denies: polyuria or polydipsia Chance/Lymph: Reports: easy bruising; Denies: easy bleeding All/Imm: Denies: urticaria PFS ED PFSH: Medical History Adenocarcinoma of gallbladder Atrial fibrillation 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 Brother CAD (coronary artery disease) Brother , 2 brothers of heart disease CAD (coronary artery disease) Denies family history of Diabetes Clotting disorder Dementia Hyperlipidemia Psychiatric illness Chronic kidney disease (CKD) Suicide Anesthesia complication Bleeding disorder Family history of premature coronary artery disease Lung disease Cancer Hypertension Stroke Social History Smoking and tobacco status: current every day smoker Alcohol intake: never Physical Exam Narrative: EXAM NARRATIVE: Is overweight. makes good eye contact, calm and alert and responsive appropriately to questions. Const: COMMON NORMALS: no acute distress and patient oriented x3 NUTRI TIONAL APPEARANCE: overweight ORIENTATION/CONSCIOUSNESS: Yes awake HENMT: COMMON NORMALS: normocephalic, atraumatic, Normal nasal mucous membranes and turbinates present and moist oral mucous membranes HEAD & SCALP: normocephalic and atraumatic NOSE: Normal nasal mucous membranes and turbinates present Eye: COMMON NORMALS: Equal, round and reactive pupils present, EOMs intact bilaterally and conjunctivae normal CONJUNCTIVA: Yes conjunctivae normal PUPIL: Yes Equal, round and reactive pupils present Neck/C-Spine: COMMON NORMALS: full ROM, no meningeal signs, no JVD, Thyroid normal and No carotid bruits THYROID: Thyroid normal Lymph: LYMPHATIC: no lymphadenopathy noted Chest: COMMONS NORMALS: normal inspection of the chest and normal palpation of entire chest wall Resp: COMMON NORMALS: normal respiratory effort and No use of accessory muscles EFFORT & INSPECTION: Yes able to speak in complete sentences AUSCULTATION: wheezes (Faint scattered on expiration.) Cardio: COMMON NORMALS: no JVD, No murmurs present (Cardio) and Peripheral pulses 2+ throughout RATE: tachycardic RHYTHM: abnormal rhythm PERIPHERAL PULSES: Peripheral pulses 2+ throughout GI: COMMON NORMALS: Normal to inspection, nondistended, normoactive bowel sounds present, Soft to palpation and non-tender PALPATION: Yes Soft to palpation : COMMON NORMALS: Yes no CVA tenderness BLADDER/KIDNEY EXAM: Yes no CVA tenderness Back/Pelvis: COMMON NORMALS: no CVA tenderness, thoracic and lumbar spine normal to inspection, no thoracic nor lumbar tenderness and thoraco-lumbar ROM normal Extremity: COMMON NORMALS: normal to inspection, full ROM, no joint enlargement, no calf tenderness and no pedal edema Neuro: COMMON NORMALS: patient oriented x3, moves all extremities, no focal motor deficits and no sensory deficits noted MENINGEAL SIGNS: Yes no meningeal signs CRANIAL NERVES: Yes CN normal except as noted Psych: COMMON NORMALS: mental status grossly normal and cooperative Skin: COMMON NORMALS: no rashes or lesions noted, no wounds and turgor normal GENERAL SKIN EXAM: no rashes or lesions noted and turgor normal Course Reevaluation(s): Reevaluation #1: Patient's difficult venous access. Ultrasound was used provide venous access to allow diagnosis and treatment. Time: 13:00 Reevaluation #2: Despite initial dose of diltiazem as well as magnesium sulfate she still has a rapid ventricular response. We will proceed with additional diltiazem dosing followed by a infusion. Time: 13:55 Reevaluation #3: After second bolus and infusion her ventricular response is now down into the 100-110 range. Time: 14:37 Additional Reevaluation(s): After review of her chart Dr. Child suggested that we contact Dr. Phipps and discuss recommendations for rate control etc. as apparently he had advised not using significant doses of diltiazem previously. Consultations: Consultation #1: Talked with Dr. Child hospitalist who will place her in [place] and continue to achieve rate control. Time: 15:21 Consultation #2: I discussed with attending home care consultant Dr. Phipps who recommend continue the current course and he will see her in consultation. Time: 15:31 Vital Signs: Vital signs: Vital Signs Temperature 97.6 F 12/09/21 11:36 Pulse Rate 110 H 12/09/21 15:20 Respiratory Rate 24 H 12/09/21 15:20 Blood Pressure 126/88 12/09/21 15:20 Pulse Oximetry 90 12/09/21 15:20 MDM - Chest Pain Medical Decision Making Despite thePatient with a history of atrial fibrillation who presented to our emergency department with palpitations consistent with atrial fibrillation with a rapid ventricular response. This being patient's consistent she has been taking her medications faithfully. She was placed on monitor given and incre asing doses of diltiazem and diltiazem infusion for rate control in addition to magnesium infusion. We are able to get her rate more controlled but not optimally controlled. He did have an elevation of troponin without any concerns for ongoing ischemia other than what is likely due to her rapid ventricular response. Do not feel that this is ACS etc. at this time. She is anticoagulated appropriately by her admission. Will place in the hospital for continued rate control and medication adjustment. Medical Records I reviewed the patient's medical records. Lab Data I reviewed the patient's lab results. : 12/09/21 13:35 12/09/21 13:35 Radiology Impressions Chest X-Ray 12/09/21 12:03 Impression: Atherosclerosis. Laboratory Results WBC 7.2 10^3/uL (4.0-10.0) 12/09/21 13:35 RBC 5.35 10^6/uL (4.1-5.3) H 12/09/21 13:35 Hgb 13.2 g/dL (11.5-15.3) 12/09/21 13:35 Hct 40.0 % (37.0-47.0) 12/09/21 13:35 MCV 74.8 fl (81-99) L 12/09/21 13:35 MCH 24.7 pg (28.0-34.0) L 12/09/21 13:35 MCHC 33.0 g/dL (30.0-36.0) 12/09/21 13:35 RDW 16.9 % (12.1-15.1) H 12/09/21 13:35 Plt Count 226 10^3/cmm (130-400) 12/09/21 13:35 MPV 11.2 fL (7.4-10.4) H 12/09/21 13:35 Neut % (Auto) 66.8 % 12/09/21 13:35 Lymph % (Auto) 18.2 % 12/09/21 13:35 [place] % (Auto) 11.7 % 12/09/21 13:35 Eos % (Auto) 2.2 % 12/09/21 13:35 Baso % (Auto) 0.8 % 12/09/21 13:35 Neut # (Auto) 4.79 10^3/uL (1.8-7.7) 12/09/21 13:35 Lymph # (Auto) 1.3 10^3/uL (0.8-4.8) 12/09/21 13:35 [place] # (Auto) 0.8 10^3/uL (0.2-0.9) 12/09/21 13:35 Eos # (Auto) 0.2 10^3/uL (0.0-0.8) 12/09/21 13:35 Baso # (Auto) 0.1 10^3/uL (0.0-0.1) 12/09/21 13:35 Nucleated RBC % (auto) 0 % 12/09/21 13:35 Nucleated RBCs # 0.0 /100WBC 12/09/21 13:35 Sodium 135 mmol/L (136-145) L 12/09/21 13:35 Potassium 4.6 mmol/L (3.5-5.1) 12/09/21 13:35 Chloride 101 mmol/L (98-107) 12/09/21 13:35 Carbon Dioxide 19 mmol/L (22-29) L 12/09/21 13:35 Anion Gap 19.6 (5-19) H 12/09/21 13:35 BUN 17 mg/dL (8-23) 12/09/21 13:35 Creatinine 1.2 mg/dL (0.5-0.9) H 12/09/21 13:35 GFR Calculation 44.8 mL/min (90-130) L 12/09/21 13:35 Glucose 122 mg/dL (65-115) H 12/09/21 13:35 Calculated Osmolality 283 mOsm/kg (285-295) L 12/09/21 13:35 Calcium 8.8 mg/dL (8.5-10.5) 12/09/21 13:35 Troponin T Baseline 16 ng/L (0-10) H 12/09/21 13:35 EKG Data EKG 1: I personally reviewed and interpreted this EKG as follows: EKG interpretation time: 13:12 Interpretation: She has an underlying atrial fibrillation with a rapid ventricular response of 144 bpm. She has some nonspecific ST-T wave changes in the lateral precordial leads. Her QRS complexes are narrow. EKG 2: I personally reviewed and interpreted this EKG as follows: EKG interpretation time: 14:42 Interpretation: Ventricular rate is now 103 bpm. She has an underlying atrial fibrillation rhythm which is improved regarding a ventricular response compared with previous tracing this ER visit. Discharge Plan Discharge Patient Disposition: Admitted As Inpatient Clinical Impression: Atrial fibrillation with rapid ventricular response Condition: Stable Coding Level of Care Code ED Animal Pathologist for Chg Fwd Exam Comprehensive
[2021-12-09] MEDS: magnesium sulfate premix 2 GM/50 ML PIGGYBACK IV (13:09)
[2021-12-09] MEDS: sodium chloride 0.9% 500 ML 999 ML IV (13:13)
[2021-12-09] MEDS: dilTIAZem 5 mg/mL SDV 5 mL 10 MG IVP ×2 (13:21→14:15)
[2021-12-09 13:47] LABS: Basophils # 0.1 10^3/uL (0.0-0.1); Basophils % 0.8 %; Eosinophils # 0.2 10^3/uL (0.0-0.8); Eosinophils % 2.2 %; Hemoglobin 13.2 g/dL (11.5-15.3); Lymphocytes # 1.3 10^3/uL (0.8-4.8); Lymphocytes % 18.2 %; Mean Corpuscular Hemoglobin 24.7 pg (28.0-34.0); Mean Corpuscular Volume 74.8 fl (81-99); Mean Platelet Volume 11.2 fL (7.4-10.4); Monocytes # 0.8 10^3/uL (0.2-0.9); Monocytes % 11.7 %; Neutrophils # 4.79 10^3/uL (1.8-7.7); Neutrophils % 66.8 %; Nucleated Red Blood Cells % 0 %; Platelet Count 226 10^3/cmm (130-400); Red Blood Count 5.35 10^6/uL (4.1-5.3); Red Cell Distribution Width 16.9 % (12.1-15.1); White Blood Count 7.2 10^3/uL (4.0-10.0)
--- NOTE | 2021-12-09 14:03 | ECG_ITS ---
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 Measurements Intervals [place] Rate: 103 P: [place]: QRS: 64 QRSD: 96 T: 219 QT: 370 QTc: 486 Interpretive Statements ATRIAL FIBRILLATION WITH RAPID VENTRICULAR RESPONSE VOLTAGE CRITERIA FOR LVH [MEETS CRITERIA IN ONE OF: R(aVL), S(V1), R(V5), R(V5/V6)+S(V1)] Compared to ECG 12/09/2021 13:11:12 No significant changes Electronically Signed On 12-09-2021 17:59:16 CDT by James Agrawal M.D. [id number]
[2021-12-09 14:08] LABS: Troponin(5th) Baseline 16 ng/L (0-10)
[2021-12-09 14:51] LABS: Anion Gap 19.6 (5-19); Blood Urea Nitrogen 17 mg/dL (8-23); Calcium 8.8 mg/dL (8.5-10.5); Carbon Dioxide 19 mmol/L (22-29); Chloride 101 mmol/L (98-107); Glomerular Filtration Rate 44.8 mL/min (90-130); Glucose 122 mg/dL (65-115); Osmolality Calculated 283 mOsm/kg (285-295); Potassium 4.6 mmol/L (3.5-5.1); Sodium 135 mmol/L (136-145)
[2021-12-09 15:42] LABS: Troponin 5 2HR 13.24 ng/L (0-10)
[2021-12-09 15:45] LABS: Troponin 5 2HR Delta -2.76 ABS# (0-10)
--- NOTE | 2021-12-09 16:30 | P.HP_ITS ---
Providers/Chief Complaint Primary Care Provider: Mega Martinez MD Chief Complaint: Weak, arm pain, chest pain History of Present Illness Kaity Ferro is a 66 year old female with past medical history of atrial fibrillation with RVR who has had a recent admission for the same presented to the ER today with palpitations. She said that she got dizzy when she was at the [employer]. She says that she believes she overdid it. She has been wearing a Holter monitor from discharge last time but says she took it off 5 days ago. She says she was not sure if she had to put it back on. She also states that she wore 1 last year where the battery and apparently she took it off and did not wear it continuously either. She brought the box with her today and is wanting us to teach her how to use it again. She says she may have used up all the batteries and is unsure what to do at this point. Patient does have a history of having bradycardia and sinus pauses and is extremely sensitive to AV david blocking agents therefore has not been placed on high doses in the past. Last time she was discharged with event monitor and Coreg and lowest dose of long-acting Cardizem at time of discharge. She was post to follow-up with Dr. Phipps outpatient. Today she presented with Nathaly castellanos with RVR heart rate 1 40-1 50. Initially she was given medications in the ER and because she was still uncontrolled she was placed on Cardizem drip. Decision made to admit her. ER physician also spoke to Dr. Phipps who recommended admission at this time. Medications/Allergies Home Medications Medication Instructions Recorded Confirmed Last Taken Type apixaban 5 mg tablet (Eliquis) 5 mg PO BID 08/01/19 12/09/21 11/26/21 History furosemide 20 mg tablet 20 mg PO DAILY PRN 08/01/19 12/09/21 Unknown History hydrocodone 5 mg-acetaminophen 325 1 tab PO BID PRN 08/01/19 12/09/21 11/26/21 History mg tablet latanoprost 0.005 % eye drops 1 drop OPHTHALMIC (EYE) DAILY 08/01/19 12/09/21 11/26/21 History levothyroxine 50 mcg capsule 50 mcg PO DAILY 08/01/19 12/09/21 11/26/21 History dorzolamide 2 % eye drops 1 drp OPHTHALMIC (EYE) TID ml 04/20/21 12/09/21 11/26/21 History amlodipine 2.5 mg tablet 2.5 mg PO DAILY tab 08/10/21 12/09/21 11/26/21 History carvedilol 25 mg tablet 25 mg PO BID tab 08/10/21 12/09/21 11/26/21 History albuterol sulfate 90 mcg/actuation 1 - 2 puff INHALATION Q4H PRN 11/26/21 12/09/21 Unknown History aerosol inhaler brimonidine 0.2 % eye drops 1 drp OPHTHALMIC (EYE) BID 11/26/21 12/09/21 11/26/21 History lisinopril 40 mg tablet 40 mg PO DAILY 11/26/21 12/09/21 11/26/21 History diltiazem HCl 120 mg 120 mg PO DAILY #30 tab 11/27/21 12/09/21 Unknown Rx tablet,extended release 24 hr (Cardizem LA) hydralazine 100 mg tablet 100 mg PO TID #90 tab 11/27/21 12/09/21 Unknown Rx Allergies Allergy/AdvReac Type Severity Reaction Status Date / Time orange juice Allergy Intermediate ADR-Vomitin Verified 12/09/21 14:22 g potassium Allergy Intermediate sick in Verified 12/09/21 14:22 the stomach amoxicillin Allergy unk Verified 12/09/21 14:22 buspirone Allergy unk Verified 12/09/21 14:22 hydralazine Allergy coughing Verified 12/09/21 14:22 and nausea Penicillins Allergy shortness Verified 12/09/21 14:22 of breath povidone-iodine Allergy unk Verified 12/09/21 14:22 [From Betadine] soap [From Betadine] Allergy unk Verified 12/09/21 14:22 Sbcebvv-GGD-AmB Reductase Allergy FLu like Verified 12/09/21 14:22 Inhibitor symptoms [Zwcafax-Vzf-Enw Reductase Inhibitor] carvedilol AdvReac Severe cough Verified 12/09/21 14:22 amlodipine AdvReac BLE edema Verified 12/09/21 14:22 valsartan AdvReac unknown Verified 12/09/21 14:22 PFSH Acute 2 PFSH: Medical History Adenocarcinoma of gallbladder Atrial fibrillation 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 Brother CAD (coronary artery disease) Brother , 2 brothers of heart disease CAD (coronary artery disease) Denies family history of Diabetes Clotting disorder Dementia Hyperlipidemia Psychiatric illness Chronic kidney disease (CKD) Suicide Anesthesia complication Bleeding disorder Family history of premature coronary artery disease Lung disease Cancer Hypertension Stroke Social History Smoking and tobacco status: current every day smoker Alcohol intake: never Vitals/I&O/Wt Last Vital Signs Temp 97.6 F 12/09/21 11:36 Pulse 97 12/09/21 16:15 Resp 18 12/09/21 16:15 BP 161/128 12/09/21 16:15 Pulse Ox 96 12/09/21 16:15 12/09/21 12/09/21 12/09/21 06:59 14:59 22:59 Intake Total 562.50 / 562.50 Balance 562.50 / 562.50 Physical Exam Narrative: General: Alert oriented x3, patient seen sitting up in bed in ER room 4 appearing comfortable at this time. Denies any palpitations. Heart rate between 120-130, event monitor sitting bedside in box. HEENT: Normocephalic, atraumatic, EOMI, breathing normally Cardio: Tachycardic, irregularly irregular rhythm, normal S1-S2, no murmurs_ Respiratory: Good bilateral air entry, no wheezes no rhonchi appreciated GI: Abdomen soft, nontender, nondistended, bowel sounds + Behavior: Appropriate and cooperative Extremities: No lower extremity edema, no cyanosis Data : 12/09/21 13:35 12/09/21 13:35 A&P Assessment and plan (1) Atrial fibrillation with rapid ventricular response: Status: Acute (2) Sinus node dysfunction: Status: Acute (3) Obstructive sleep apnea: Status: Acute (4) PVD (peripheral vascular disease): Status: Acute (5) Hypothyroidism: Status: Acute Qualifiers: Hypothyroidism type: acquired Qualified Code(s): E03.9 - Hypothyroidism, unspecified (6) Mild diastolic dysfunction: Status: Acute (7) Essential hypertension: Status: Acute Plan #Atrial fibrillation with RVR #Hypertension #History of anxiety #Chronic diastolic congestive heart failure ? She has been compliant with all her medications ? Continue Eliquis ? Hold Cardizem 120 daily. ? Continue lisinopril 40 daily ? Continue hydralazine 100 3 times daily ? Continue amlodipine 2.5 daily ? Continue Coreg 25 twice daily ? Continue patient on Cardizem drip for now and titrate. We will convert her to oral once she is controlled ? Place in ICU for tonight for heart rate monitoring ? Continue event monitor at discharge ? Continue to follow-up with Dr. Phipps as an outpatient. Hopefully she will able to go home by tomorrow after medication adjustment. ? Continue Lasix 20 daily. She states she did not take it today. She does have mild shortness of breath. I will give her Lasix 40 IV x1 ? Echo done on November 13 shows EF 70%. There is history of mild diastolic dysfunction. Full code DVT prophylaxis: On Eliquis Attestations Medical Necessity Statement*: Observation for tonight for do adjustment of medications. Anticipate she will be able to go home by tomorrow. Coding Level of Care Code Acute Director Of Strategic Communications for [facility] Fwd Diagnoses Atrial fibrillation with rapid ventricular response I48.91 Sinus node dysfunction I49.5 Obstructive sleep apnea G47.33 PVD (peripheral vascular disease) I73.9 Hypothyroidism E03.9 Hypothyroidism type: acquired Mild diastolic dysfunction I51.9 Essential hypertension I10
--- NOTE | 2021-12-09 18:03 | ECG_ITS ---
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 Measurements Intervals [place] Rate: 99 P: [place]: QRS: 59 QRSD: 106 T: 215 QT: 384 QTc: 494 Interpretive Statements ATRIAL FIBRILLATION POSSIBLE LEFT VENTRICULAR HYPERTROPHY [VOLTAGE CRITERIA PLUS LAE OR QRS WIDENING] POSSIBLE LATERAL MYOCARDIAL INFARCTION , OF INDETERMINATE AGE [30 ms Q WAVE IN I/aVL/V5/V6] MODERATE T-WAVE ABNORMALITY, CONSIDER ANTERIOR ISCHEMIA [-0.1+ mV T-WAVE IN V3/V4] MODERATE T-WAVE ABNORMALITY, CONSIDER INFERIOR ISCHEMIA [-0.1+ mV T-WAVE IN II/aVF] Compared to ECG 12/09/2021 14:41:08 Myocardial infarct finding now present T-wave abnormality now present Possible ischemia now present Electronically Signed On 12-09-2021 19:42:09 CDT by James Agrawal M.D. [id number]
--- NOTE | 2021-12-09 20:03 | PC.NURSE ---
patient declines flu and COVID vaccines
--- NOTE | 2021-12-09 20:08 | PC.NURSE ---
Noted scratches to BLE and buttocks
[2021-12-09 20:25] LABS: Troponin 5 6HR 13.14 ng/L (0-10)
[2021-12-09 20:27] LABS: Troponin 5 6HR Delta -2.86 ng/L (0-12)
[2021-12-09] MEDS: FUROsemide 10 mg/mL SDV 4mL 40 MG IVP (20:52)
--- NOTE | 2021-12-09 21:22 | P.CONIM_ITS ---
Providers/Reason For Consult Consulting Physician/Specialty*: FRED Phipps MD/cardiology Reason for Consult*: Patient with history of bradycardia/sinus pauses presenting with symptomatic atrial fibrillation with rapid ventricular rate Requesting Physician: Dr. Child Attending Physician: Domi Child MD Primary Care Provider: Mega Martinez MD History of Present Illness History of Present Illness Kaity Ferro is a 66 year old female with a history of chronic intermittent atrial fibrillation, sinus node dysfunction with prolonged pauses, is presenting with complaints of palpitations/dizziness/near syncope. She was found to be in atrial fibrillation with rapid ventricular rate. Cardiology consult is requested for further cardiac evaluation recommendations. This patient was recently admitted to hospital with a similar symptoms. She was treated with a IV Cardizem followed by marisela Araiza and was discharged home. She was discharged with an event monitor. She was found to have episodes of atrial fibrillation with rapid ventricular rate on the monitor. She is known to be poorly compliant with medications and follow-ups. She apparently took herself off of the monitor prior to coming to the hospital. She was in the laundromat today and started having palpitations associate with the dizziness. She felt extremely weak. She also has some chest discomfort. No syncopal episode. No other associated symptoms. She was found to be in atrial fibrillation rapid ventricular rate in the emergency room. She was started on IV Cardizem drip. Her heart rate started coming down slowly. She is admitted to hospital for further evaluation management. She has a history of sleep apnea. Still waiting for a sleep study. Also noted to have hypothyroidism, stroke like symptoms in the past. She did not have any significant carotid artery disease, based on the CTA. She has a history of uncontrolled blood pressure, hypothyroidism and GERD. Denies any fever or chills. No cough. No other specific complaints. Medications/Allergies Home Medications Medication Instructions Recorded Confirmed Last Taken Type apixaban 5 mg tablet (Eliquis) 5 mg PO BID 08/01/19 12/09/21 11/26/21 History furosemide 20 mg tablet 20 mg PO DAILY PRN 08/01/19 12/09/21 Unknown History hydrocodone 5 mg-acetaminophen 325 1 tab PO BID PRN 08/01/19 12/09/21 11/26/21 History mg tablet latanoprost 0.005 % eye drops 1 drop OPHTHALMIC (EYE) DAILY 08/01/19 12/09/21 11/26/21 History levothyroxine 50 mcg capsule 50 mcg PO DAILY 08/01/19 12/09/21 11/26/21 History dorzolamide 2 % eye drops 1 drp OPHTHALMIC (EYE) TID ml 04/20/21 12/09/21 11/26/21 History amlodipine 2.5 mg tablet 2.5 mg PO DAILY tab 08/10/21 12/09/21 11/26/21 History carvedilol 25 mg tablet 25 mg PO BID tab 08/10/21 12/09/21 11/26/21 History albuterol sulfate 90 mcg/actuation 1 - 2 puff INHALATION Q4H PRN 11/26/21 12/09/21 Unknown History aerosol inhaler brimonidine 0.2 % eye drops 1 drp OPHTHALMIC (EYE) BID 11/26/21 12/09/21 11/26/21 History lisinopril 40 mg tablet 40 mg PO DAILY 11/26/21 12/09/21 11/26/21 History diltiazem HCl 120 mg 120 mg PO DAILY #30 tab 11/27/21 12/09/21 Unknown Rx tablet,extended release 24 hr (Cardizem LA) hydralazine 100 mg tablet 100 mg PO TID #90 tab 11/27/21 12/09/21 Unknown Rx Allergies Allergy/AdvReac Type Severity Reaction Status Date / Time orange juice Allergy Intermediate ADR-Vomitin Verified 12/09/21 14:22 g potassium Allergy Intermediate sick in Verified 12/09/21 14:22 the stomach amoxicillin Allergy unk Verified 12/09/21 14:22 buspirone Allergy unk Verified 12/09/21 14:22 hydralazine Allergy coughing Verified 12/09/21 14:22 and nausea Penicillins Allergy shortness Verified 12/09/21 14:22 of breath povidone-iodine Allergy unk Verified 12/09/21 14:22 [From Betadine] soap [From Betadine] Allergy unk Verified 12/09/21 14:22 Absojsn-VJO-ChZ Reductase Allergy FLu like Verified 12/09/21 14:22 Inhibitor symptoms [Pvrifha-Myv-Vpx Reductase Inhibitor] carvedilol AdvReac Severe cough Verified 12/09/21 14:22 amlodipine AdvReac BLE edema Verified 12/09/21 14:22 valsartan AdvReac unknown Verified 12/09/21 14:22 Current Medications Generic Name Dose Route Start Last Admin Trade Name Aliyah PRN Reason Stop Dose Admin Diltiazem HCl 50 mg/ Sodium 50 mls @ 0 mls/hr 12/09/21 14:00 12/09/21 20:53 Chloride IV 10 mg/hr .Q0M MARGE 10 mls/hr Administration Protocol As Directed PFSH Acute PFSH: Medical History Adenocarcinoma of gallbladder Atrial fibrillation 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 Brother CAD (coronary artery disease) Brother , 2 brothers of heart disease CAD (coronary artery disease) Denies family history of Diabetes Clotting disorder Dementia Hyperlipidemia Psychiatric illness Chronic kidney disease (CKD) Suicide Anesthesia complication Bleeding disorder Family history of premature coronary artery disease Lung disease Cancer Hypertension Stroke Social History Smoking and tobacco status: current every day smoker Alcohol intake: never Vitals/I&O/Wt Last Vital Signs Temp 97.7 F 12/09/21 19:35 Pulse 98 12/09/21 20:50 Resp 26 H 12/09/21 20:50 BP 147/88 12/09/21 20:50 Pulse Ox 96 12/09/21 20:50 12/09/21 12/09/21 12/09/21 06:59 14:59 22:59 Intake Total 860.00 / 860.00 Balance 860.00 / 860.00 Physical Exam Narrative: GENERAL: The patient is alert and oriented times three. Not in any acute distress. HEENT: No significant pallor, icterus or lymphadenopathy.Oral cavity: There are no mucous membrane lesions. NECK: Trachea appears to be central. No masses noted. No JVD or thyromegaly arron reciated. RESPIRATORY: Chest is symmetrical. No intercostals muscle retraction or any accessory muscle activation. There is no chest wall tenderness. Breath sounds are heard bilaterally. No rales or rhonchi heard. No evidence of any consolidation. BREASTS: Deferred. HEART: The first heart sound is variable. Normal second heart sounds. No S3 or S4. No significant murmurs. No pericardial rub ABDOMEN: No vessel pulsations or distention. No tenderness. No organomegaly appreciated. Bowel sounds are normally heard. : Deferred. RECTAL: Deferred. LYMPHATIC: No lymphadenopathy noted in the neck. EXTREMITIES: No edema or cyanosis. No clubbing. MUSCULOSKELETAL: No acute joint deformities or swelling SKIN: There are no significant rashes or ecchymosis NEUROPSYCHIATRIC: The patient is alert and oriented x3. Appears to be in a good mood. No tremors or rigidity noted. Data : 12/09/21 13:35 12/09/21 13:35 Echo: My impression: Normal left ventricular size and systolic function, EF 70 %. ?Mild left ventricular hypertrophy. ?Moderate mitral annular calcification. ?Mildly increased left atrial size. ?Features of aortic valve sclerosis. ?Trace tricuspid valve regurgitation.? Estimated pulmonary artery ?peak systolic pressure of 37 mmHg. ?Trace tricuspid valve regurgitation.? ?Estimated pulmonary artery peak systolic pressure of 37 mmHg. ?There is no pericardial effusion. ?There are no intracardiac masses. ?Compared to the study from 03/22/2017, there may not be ?significant change Myocardial perfusion imaging: My impression: 11/16/2021 ?1.? Unremarkable Myocardial perfusion imaging. ?2.? Normal LV ejection fraction of 39%. ?3.? LV wall motion analysis revealing no gross wall motion normalities. ?4.? Normal LV volume. ?5.? Low probability for coronary ischemia, based on the above findings ?6.? No similar previous studies are available for comparison EKG 1: My Interpretation: Atrial fibrillation with rapid ventricular rate. Features of LVH. Diffuse nonspecific ST-T changes. Possible old lateral wall [place]. EKG computer-generated impression: Chest X-Ray 12/09/21 12:03 Impression: Atherosclerosis. A&P Assessment and plan (1) Atrial fibrillation with rapid ventricular response: Patient is on IV Cardizem. This may be continued for the time being. I also may start her on flecainide 50 mg p.o. now and twice daily. Patient may benefit from catheter-based options. In the past she was not keen to go for this procedure. She seems to have some second thoughts about this. Status: Acute (2) Sinus node dysfunction: She has not had any recent symptomatic bradycardia. This needs to be closely watched for. Sometime down the line, she may require permanent pacemaker plantation. Status: Acute (3) Daytime somnolence: Since the heart failure seems to be compensated likely, patient may not require any specific intervention at this time. Advised to continue on the current medications. He is still awaiting the sleep study. Status: Acute (4) Near syncope: Most likely related to the atrial fibrillation and rapid ventricular rate. She has not had any prolonged pauses on the event monitor telemetry so far. Status: Acute (5) Hypothyroidism: She is on thyroid replacement. Seems to be clinically euthyroid. Status: Acute Qualifiers: Hypothyroidism type: acquired Qualified Code(s): E03.9 - Hypothyroidism, unspecified (6) Atypical chest pain: Chest pain most likely from the arrhythmia. Her Myocardial perfusion imaging was unremarkable with no evidence of ischemia Status: Acute Plan Other problems are as outlined before. Based on the clinical progress, further recommendations will be made. She needs to be closely monitored on telemetry. Consult Attestations Medical Necessity Statement: Patient requires continued hospital stay for close monitoring and further management Coding Level of Care Code Acute [employer] Dean for [facility] Fwd History Detailed Exam Detailed Medical Decision Making Moderate Complexity Diagnoses Atrial fibrillation with rapid ventricular response I48.91 Sinus node dysfunction I49.5 Daytime somnolence R40.0 Near syncope R55 Hypothyroidism E03.9 Hypothyroidism type: acquired Atypical chest pain R07.89
[2021-12-09] MEDS: dorzolamide 2% Op Soln 10 mL Btl 1 DROP EYE-BOTH (21:48)
[2021-12-09] MEDS: flecainide 100 mg Tablet 50 MG PO (21:49)
[2021-12-09] MEDS: hyDRALAzine 50 mg Tablet 100 MG PO (21:51)
[2021-12-09 21:59] LABS: Amphetamines Screen Urine Negative (Negative); Barbiturates Screen Urine Negative (Negative); Benzodiazepines Screen Urine Negative (Negative); Cocaine Screen Urine Negative (Negative); Opiate Screen Urine Negative (Negative); PCP Screen Urine Negative (Negative); THC Screen Urine Negative (Negative)
[2021-12-09] MEDS: HYDROcodone-acetaminophen 5-325 mg Tablet 1 TAB PO (22:58)
[2021-12-10] VITALS (40 sets, daily range): BP systolic 77–137; BP diastolic 54–100; PULSE 49–108; RESP 14–34; TEMP 36.5–37; O2SAT 89–99
[2021-12-10 02:42] LABS: Basophils # 0.1 10^3/uL (0.0-0.1); Eosinophils # 0.3 10^3/uL (0.0-0.8); Eosinophils % 4.7 %; Hematocrit 39.2 % (37.0-47.0); Hemoglobin 12.8 g/dL (11.5-15.3); Lymphocytes # 1.9 10^3/uL (0.8-4.8); Lymphocytes % 26.1 %; Mean Corpuscular HGB Conc 32.7 g/dL (30.0-36.0); Mean Corpuscular Hemoglobin 24.6 pg (28.0-34.0); Mean Corpuscular Volume 75.2 fl (81-99); Mean Platelet Volume 10.8 fL (7.4-10.4); Monocytes # 0.8 10^3/uL (0.2-0.9); Monocytes % 11.1 %; Neutrophils # 4.16 10^3/uL (1.8-7.7); Neutrophils % 56.8 %; Nucleated Red Blood Cells % 0 %; Platelet Count 201 10^3/cmm (130-400); Red Blood Count 5.21 10^6/uL (4.1-5.3); Red Cell Distribution Width 17.1 % (12.1-15.1); White Blood Count 7.3 10^3/uL (4.0-10.0)
[2021-12-10 03:17] LABS: Anion Gap 17.5 (5-19); Blood Urea Nitrogen 17 mg/dL (8-23); Calcium 8.7 mg/dL (8.5-10.5); Carbon Dioxide 21 mmol/L (22-29); Chloride 104 mmol/L (98-107); Glomerular Filtration Rate 62.5 mL/min (90-130); Glucose 98 mg/dL (65-115); Magnesium 2.3 mg/dL (1.7-2.3); Osmolality Calculated 290 mOsm/kg (285-295); Potassium 3.5 mmol/L (3.5-5.1); Sodium 139 mmol/L (136-145)
[2021-12-10] MEDS: dorzolamide 2% Op Soln 10 mL Btl 1 DROP EYE-BOTH ×3 (08:09→20:38)
[2021-12-10] MEDS: latanoprost 0.005% Op Soln 2.5 mL Btl 1 DROP EYE-BOTH (08:11)
[2021-12-10] MEDS: brimonidine 0.2% Op Soln 5 mL Btl 1 DROP EYE-BOTH ×2 (08:11→17:06)
[2021-12-10] MEDS: apixaban 5 mg Tablet PO ×2 (08:12→17:06)
[2021-12-10] MEDS: hyDRALAzine 50 mg Tablet 100 MG PO (08:12)
[2021-12-10] MEDS: levothyroxine 50 mcg Tablet PO (08:12)
[2021-12-10] MEDS: lisinopril 20 mg Tablet 40 MG PO (08:12)
[2021-12-10] MEDS: carvedilol 25 mg Tablet PO (08:12)
[2021-12-10] MEDS: pantoprazole 40 mg SDV IVP (08:12)
--- NOTE | 2021-12-10 09:07 | PC.NURSE ---
Pt became bradycardic, hypotensive and nauseous. Cardizem gtt stopped. IV flushed vitals rechecked. BP improved, Hr 76. Pt has basin in hand in case of n/v. notified. New orders processed.
[2021-12-10] MEDS: sodium chloride 0.9% 250 ML 999 ML IV (09:17)
[2021-12-10] MEDS: ondansetron 2 mg/ML SDV 2 mL 4 MG IVP (09:24)
--- NOTE | 2021-12-10 09:39 | ECG_ITS ---
[facility] Test Date: 2021-12-10 Pat Name: Kaity Ferro Department: Room: [facility] [place] Gender: Female Print Producer: : [id number] Requested By: Ida Phipps Order Number: [id number] Reading MD: Ida Phipps M.D. Measurements Intervals [place] Rate: 73 P: [place]: QRS: 30 QRSD: 98 T: 100 QT: 423 QTc: 468 Interpretive Statements ATRIAL FIBRILLATION NONSPECIFIC T-WAVE ABNORMALITY Compared to ECG 12/09/2021 18:39:20 Myocardial infarct finding no longer present Possible ischemia no longer present T-wave abnormality still present Electronically Signed On 12-10-2021 19:26:37 CDT by Ida Phipps M.D. [email or web address] medical [id number]
--- NOTE | 2021-12-10 10:09 | PC.NURSE ---
Pt hr in 60's and 70's, aflutter. Remains hypotensive after AM med administration. NS bolus given per orders. Pt made NPO in preparation for possible OLY/cardioversion. Will monitor.
--- NOTE | 2021-12-10 12:48 | P.PN_ITS ---
Subjective Subjective: Seen this morning. Heart rate is 50s to 60s this morning. She is a little nauseous as well but has not thrown up yet. Plan is for potential OLY and cardioversion today with cardiology. She was started on flecainide by cardiology last night. Patient does not have any other complaints at this time and feels okay apart from the mild nausea. Vitals/I&O/Wt Last Vital Signs Temp 98.1 F 12/10/21 08:00 Pulse 81 12/10/21 12:00 Resp 22 H 12/10/21 12:00 BP 90/62 12/10/21 12:00 Pulse Ox 92 12/10/21 12:00 12/09/21 12/10/21 12/10/21 22:59 06:59 14:59 Intake Total 1360.00 / 1360.00 50 / 1410.00 537.875 / 537.875 Output Total 1625 / 1625 500 / 2125 250 / 250 Balance -265.00 / -265.00 -450 / -715.00 287.875 / 287.875 Weight last 48 hrs Weight 86.5 kg Physical Exam Narrative: General: Alert oriented x3, patient seen sitting up in bed appearing a little nauseous holding bucket in her hand. HEENT: Normocephalic, atraumatic, EOMI, breathing normally Cardio: irregularly irregular rhythm, normal S1-S2, no murmurs_ Respiratory: Good bilateral air entry, no wheezes no rhonchi appreciated GI: Abdomen soft, nontender, nondistended, bowel sounds + Behavior: Appropriate and cooperative Extremities: No lower extremity edema, no cyanosis Data : 12/10/21 01:56 12/10/21 01:56 A&P Assessment and plan (1) Atrial fibrillation with rapid ventricular response: Status: Acute (2) Sinus node dysfunction: Status: Acute (3) Daytime somnolence: Status: Acute (4) Obstructive sleep apnea: Status: Acute (5) PVD (peripheral vascular disease): Status: Acute (6) Near syncope: Status: Acute (7) Atypical chest pain: Status: Acute (8) Hypothyroidism: Status: Acute Qualifiers: Hypothyroidism type: acquired Qualified Code(s): E03.9 - Hypothyroidism, unspecified (9) Leg swelling: Status: Acute (10) Mild diastolic dysfunction: Status: Acute (11) Mild concentric left ventricular hypertrophy (LVH): Status: Acute (12) Essential hypertension: Status: Acute (13) Atrial fibrillation: Status: Acute Qualifiers: Atrial fibrillation type: unspecified chronic Qualified Code(s): I48.20 - Chronic atrial fibrillation, unspecified Plan #Atrial fibrillation with RVR #Hypertension #History of anxiety #Chronic diastolic congestive heart failure ? She has been compliant with all her medications ? Continue Eliquis ? Hold Cardizem 120 daily. ? Continue lisinopril 40 daily ? Continue hydralazine 100 3 times daily ? Continue amlodipine 2.5 daily ? Continue Coreg 25 twice daily ? Cardiology on board. Flecainide started last night. Plan for OLY cardioversion either today or tomorrow morning. We will keep her n.p.o. for no w. ? Echo done on November 13 shows EF 70%.? There is history of mild diastolic dysfunction. -Further management as per cardiology. -Urine output 925 overnight. We will continue Lasix 20 IV daily. Full code DVT prophylaxis: On Eliquis Attestations Medical Necessity Statement*: Will need to stay in hospital for management of the above. She will need OLY cardioversion. Heart rate not controlled at. 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
[2021-12-10] MEDS: FUROsemide 10 mg/mL SDV 2mL 20 MG IVP (13:19)
[2021-12-10] MEDS: flecainide 100 mg Tablet 50 MG PO (13:20)
--- NOTE | 2021-12-10 13:41 | PC.NURSE ---
Pt had approximately 4.2 second pause around 1331. Md notified.
[2021-12-10] MEDS: HYDROcodone-acetaminophen 5-325 mg Tablet 1 TAB PO (14:25)
--- NOTE | 2021-12-10 18:02 | PM.PN ---
Subjective Subjective: Patient is doing okay. Has been having brief periods of sinus rhythm and then going back into fibrillation. Denies any chest pain or shortness of breath. Medications: Medication Review Details: Current Medications Hydrocodone Bitart/Acetaminophen (Hydrocodone-Acetaminophen 5-325 Mg Tablet) 1 tab PO BID PRN PRN Reason: Pain Last Admin: 12/10/21 14:25 Dose: 1 tab Documented by: Albuterol Sulfate (Albuterol 8 Gm Mdi) 2 puff INHALATION Q6H.RESPIRATORY PRN PRN Reason: SHORTNESS OF BREATH Apixaban (Apixaban 5 Mg Tablet) 5 mg PO BID [facility] Last Admin: 12/10/21 17:06 Dose: 5 mg Documented by: Brimonidine Tartrate (Brimonidine 0.2% Op Soln 5 Ml Btl) 1 drop EYE-BOTH BID [facility] Last Admin: 12/10/21 17:06 Dose: 1 drop Documented by: Carvedilol (Carvedilol 25 Mg Tablet) 25 mg PO BID [facility] Last Admin: 12/10/21 17:07 Dose: Not Given Documented by: Dorzolamide HCl (Dorzolamide 2% Op Soln 10 Ml Btl) 1 drop EYE-BOTH TID [facility] Last Admin: 12/10/21 14:26 Dose: 1 drop Documented by: Flecainide Acetate (Flecainide 100 Mg Tablet) 100 mg PO Q12H [facility] Furosemide (Furosemide 10 Mg/Ml Sdv 2ml) 20 mg IVP Q24H [facility] Last Admin: 12/10/21 13:19 Dose: 20 mg Documented by: Hydralazine HCl (Hydralazine 50 Mg Tablet) 100 mg PO TID [facility] Last Admin: 12/10/21 14:26 Dose: Not Given Documented by: Diltiazem HCl 50 mg/ Sodium (Chloride) 50 mls @ 0 mls/hr IV .Q0M [facility]; Protocol Last Titration: 12/10/21 09:06 Dose: 0 mg/hr, 0 mls/hr Documented by: Latanoprost (Latanoprost 0.005% Op Soln 2.5 Ml Btl) 1 drop EYE-BOTH DAILY [facility] Last Admin: 12/10/21 08:11 Dose: 1 drop Documented by: Levothyroxine Sodium (Levothyroxine 50 Mcg Tablet) 50 mcg PO DAILY [facility] Last Admin: 12/10/21 08:12 Dose: 50 mcg Documented by: Lisinopril (Lisinopril 20 Mg Tablet) 40 mg PO DAILY [facility] Last Admin: 12/10/21 08:12 Dose: 40 mg Documented by: Ondansetron HCl (Ondansetron 2 Mg/Ml Sdv 2 Ml) 4 mg IVP Q6H PRN PRN Reason: NAUSEA AND VOMITING Last Admin: 12/10/21 09:24 Dose: 4 mg Documented by: Pantoprazole Sodium (Pantoprazole 40 Mg Sdv) 40 mg IVP DAILY [facility] Last Admin: 12/10/21 08:12 Dose: 40 mg Documented by: Vitals/I&O/Wt Last Vital Signs Temp 98.3 F 12/10/21 16:00 Pulse 60 12/10/21 16:00 Resp 15 12/10/21 16:00 BP 96/69 12/10/21 16:00 Pulse Ox 91 12/10/21 16:00 12/10/21 12/10/21 12/10/21 06:59 14:59 22:59 Intake Total 50 / 1410.00 537.875 / 537.875 360 / 897.875 Output Total 500 / 2125 250 / 250 500 / 750 Balance -450 / -715.00 287.875 / 287.875 -140 / 147.875 Weight last 48 hrs Weight 190 lb 11.198 oz Physical Exam Narrative: GENERAL: The patient is alert and oriented times three. Not in any acute distress. HEENT: No significant pallor, icterus or lymphadenopathy.Oral cavity: There are no mucous membrane lesions. NECK: Trachea appears to be central. No masses noted. No JVD or thyromegaly appreciated. RESPIRATORY: Chest is symmetrical. No intercostals muscle retraction or any accessory muscle activation. There is no chest wall tenderness. Breath sounds are heard bilaterally. No rales or rhonchi heard. No evidence of any consolidation. BREASTS: Deferred. HEART: The first heart sound is variable. Normal second heart sounds. No S3 or S4. No significant murmurs. No pericardial rub ABDOMEN: No vessel pulsations or distention. No tenderness. No organomegaly appreciated. Bowel sounds are normally heard. : Deferred. RECTAL: Deferred. LYMPHATIC: No lymphadenopathy noted in the neck. EXTREMITIES: No edema or cyanosis. No clubbing. MUSCULOSKELETAL: No acute joint deformities or swelling SKIN: There are no significant rashes or ecchymosis NEUROPSYCHIATRIC: The patient is alert and oriented x3. Appears to be in a good mood. No tremors or rigidity noted. Data : 12/10/21 01:56 12/10/21 01:56 A&P Assessment and plan (1) Atrial fibrillation with rapid ventricular response: I may gradually taper her off the Cardizem. We will increase the dose of flecainide to 100 mg p.o. twice daily. If she does not cardiovert spontaneously, may consider electrical cardioversion tomorrow. Status: Acute (2) Sinus node dysfunction: He is a patient develops any significant bradycardia or pauses, may need to consider permanent pacer implantation. Status: Acute (3) Daytime somnolence: Since the heart failure seems to be compensated likely, patient may not require any specific intervention at this time. Advised to continue on the current medications. He is still awaiting the sleep study. Status: Acute (4) Near syncope: Most likely related to the atrial fibrillation and rapid ventricular rate. She has not had any prolonged pauses on the event monitor telemetry so far. Patient has been noncompliant with the event monitor. Status: Acute (5) Hypothyroidism: She is on thyroid replacement. Seems to be clinically euthyroid. Status: Acute Qualifiers: Hypothyroidism type: acquired Qualified Code(s): E03.9 - Hypothyroidism, unspecified (6) Atypical chest pain: Chest pain most likely from the arrhythmia. Her Myocardial perfusion imaging was unremarkable with no evidence of ischemia Status: Acute Plan Other problems are as outlined before. Based on the clinical progress, further recommendations will be made. She needs to be closely monitored on telemetry. Consider electrical cardioversion tomorrow, if she continues to be in atrial fibrillation. Also need to consider permanent pacer implantation, if she develops significant bradycardia. Discussed the recommendations with the Dr. 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
--- NOTE | 2021-12-10 18:28 | PC.NURSE ---
Pt remains negin and hypotensive throughout most of shift. aware. Some meds held d/t VS. Pt up in chair in room, remains lethargic but awakens fair. Transfers with standby assist. NPO p mn in case of OLY in AM. Will monitor.
--- NOTE | 2021-12-10 19:55 | PC.NURSE ---
Patient alert and oriented to name, , and place. Patient knows year, but not date.
[2021-12-10] MEDS: flecainide 100 mg Tablet PO (20:38)
[2021-12-11] VITALS (29 sets, daily range): BP systolic 89–140; BP diastolic 53–84; PULSE 51–78; RESP 13–25; TEMP 36.7–37; O2SAT 92–100
[2021-12-11 05:10] LABS: Blood Urea Nitrogen 23 mg/dL (8-23); Calcium 8.9 mg/dL (8.5-10.5); Carbon Dioxide 24 mmol/L (22-29); Chloride 103 mmol/L (98-107); Glomerular Filtration Rate 44.8 mL/min (90-130); Glucose 88 mg/dL (65-115); Magnesium 2.3 mg/dL (1.7-2.3); Osmolality Calculated 289 mOsm/kg (285-295); Sodium 138 mmol/L (136-145)
[2021-12-11 05:11] LABS: Anion Gap 15.3 (5-19); Potassium 4.3 mmol/L (3.5-5.1)
[2021-12-11] MEDS: flecainide 100 mg Tablet PO ×2 (08:40→21:34)
[2021-12-11] MEDS: hyDRALAzine 50 mg Tablet 100 MG PO (08:41)
[2021-12-11] MEDS: levothyroxine 50 mcg Tablet PO (08:41)
[2021-12-11] MEDS: lisinopril 20 mg Tablet 40 MG PO (08:41)
[2021-12-11] MEDS: latanoprost 0.005% Op Soln 2.5 mL Btl 1 DROP EYE-BOTH (08:42)
[2021-12-11] MEDS: brimonidine 0.2% Op Soln 5 mL Btl 1 DROP EYE-BOTH ×2 (08:42→17:10)
[2021-12-11] MEDS: dorzolamide 2% Op Soln 10 mL Btl 1 DROP EYE-BOTH ×3 (08:42→21:34)
[2021-12-11] MEDS: pantoprazole 40 mg SDV IVP (08:42)
--- NOTE | 2021-12-11 08:53 | P.PN_ITS ---
Subjective Subjective: Patient is doing well. No complaints of chest pain. Does have shortness of breath. She has converted to normal sinus rhythm Vitals/I&O/Wt Last Vital Signs Temp 98.0 F 12/11/21 08:00 Pulse 78 12/11/21 08:00 Resp 13 12/11/21 08:00 BP 127/84 12/11/21 08:00 Pulse Ox 95 12/11/21 08:00 12/10/21 12/11/21 12/11/21 22:59 06:59 14:59 Intake Total 360 / 897.875 Output Total 500 / 750 250 / 1000 50 / 50 Balance -140 / 147.875 -250 / -102.125 -50 / -50 Weight last 48 hrs Weight 190 lb 11.198 oz Physical Exam Narrative: GENERAL: Patient is alert, awake and oriented x3. [] NECK: No jugular vein distension. [] HEENT: No cyanosis. No icterus. No pallor. [] HEART: Regular S1 and S2. No murmur, rub or gallop. [] LUNGS: Clear to auscultate bilaterally. [] ABDOMEN: Soft, nontender and nondistended. Positive bowel sounds. No guarding, rebound or tenderness. [] CENTRAL NERVOUS SYSTEM: Grossly nonfocal. [] EXTREMITIES: Lower extremities with 1+ edema bilaterally. Data : 12/12/21 05:30 12/12/21 06:46 A&P Assessment and plan (1) Atrial fibrillation with rapid ventricular response: We decreased dose of coreg because of bradycardia. She has converted back to normal sinus rhyhtm. We will observe her today, if she stays in normal sinus rhythm by tomorrow, we will plan to discharge her home with event monitor. If she converts back to afib, will plan on possible pacemaker placement. Status: Acute (2) Sinus node dysfunction: Heart rate is in normal limit. Coreg has been downtitrated. Status: Acute (3) Daytime somnolence: Since the heart failure seems to be compensated likely, patient may not require any specific intervention at this time. Advised to continue on the current medications. She is still awaiting the sleep study. Status: Acute (4) Near syncope: Most likely related to the atrial fibrillation and rapid ventricular rate. She has not had any prolonged pauses on the event monitor telemetry so far. Patient has been noncompliant with the event monitor. Status: Acute (5) Hypothyroidism: She is on thyroid replacement. Seems to be clinically euthyroid. Status: Acute Qualifiers: Hypothyroidism type: acquired Qualified Code(s): E03.9 - Hypothyroidism, unspecified (6) Atypical chest pain: Chest pain most likely from the arrhythmia. Her Myocardial perfusion imaging was unremarkable with no evidence of ischemia Status: Acute Plan Other problems are as outlined before. Will observe overnight and if stays in normal sinus rhythm with normal heart rates, will plan on discharging tomorrow with outpatient cardiology follow up. Attestations Medical Necessity Statement*: Care expected to cross 2 midnights Coding Level of Care Code Acute Geochemistry Teacher for g Fwd Diagnoses Atrial fibrillation with rapid ventricular response I48.91 Sinus node dysfunction I49.5 Daytime somnolence R40.0 Near syncope R55 Hypothyroidism E03.9 Hypothyroidism type: acquired Atypical chest pain R07.89
[2021-12-11] MEDS: apixaban 5 mg Tablet PO ×2 (09:44→16:53)
[2021-12-11] MEDS: HYDROcodone-acetaminophen 5-325 mg Tablet 1 TAB PO (09:44)
[2021-12-11] MEDS: carvedilol 6.25 mg Tablet PO ×2 (09:44→16:53)
--- NOTE | 2021-12-11 12:47 | P.PN_ITS ---
Subjective Subjective: Seen this morning. No acute events overnight. She is now in sinus rhythm. Daughter at bedside how to use event monitor. Currently on flecainide 100 twice daily. Vitals/I&O/Wt Last Vital Signs Temp 98.0 F 12/11/21 08:00 Pulse 63 12/11/21 12:00 Resp 24 H 12/11/21 12:00 BP 119/64 12/11/21 12:00 Pulse Ox 96 12/11/21 12:00 12/10/21 12/11/21 12/11/21 22:59 06:59 14:59 Intake Total 360 / 897.875 360 / 360 Output Total 500 / 750 250 / 1000 125 / 125 Balance -140 / 147.875 -250 / -102.125 235 / 235 Weight last 48 hrs Weight 86.5 kg Physical Exam Narrative: General: Alert oriented x3, patient seen sitting up in bed appearing a little nauseous holding bucket in her hand. HEENT: Normocephalic, atraumatic, EOMI, breathing normally Cardio: irregularly irregular rhythm, normal S1-S2, no murmurs_ Respiratory: Good bilateral air entry, no wheezes no rhonchi appreciated GI: Abdomen soft, nontender, nondistended, bowel sounds + Behavior: Appropriate and cooperative Extremities: No lower extremity edema, no cyanosis Data : 12/10/21 01:56 12/11/21 04:30 A&P Assessment and plan (1) Atrial fibrillation with rapid ventricular response: Status: Acute (2) Obstructive sleep apnea: Status: Acute (3) PVD (peripheral vascular disease): Status: Acute (4) Sinus node dysfunction: Status: Acute (5) Hypothyroidism: Status: Acute Qualifiers: Hypothyroidism type: acquired Qualified Code(s): E03.9 - Hypothyroidism , unspecified (6) Mild diastolic dysfunction: Status: Acute (7) Mild concentric left ventricular hypertrophy (LVH): Status: Acute (8) Essential hypertension: Status: Acute (9) Atrial fibrillation: Status: Acute Qualifiers: Atrial fibrillation type: unspecified chronic Qualified Code(s): I48.20 - Chronic atrial fibrillation, unspecified Plan #Atrial fibrillation with RVR #Hypertension #History of anxiety #Chronic diastolic congestive heart failure #Acute kidney injury most likely secondary to diuretic use. ? She has been compliant with all her medications ? Continue Eliquis ? Hold Cardizem 120 daily. ? Continue lisinopril 40 daily ? Continue hydralazine 100 3 times daily ? Continue amlodipine 2.5 daily ? Decrease dose of Coreg to 6.25 twice today. Continue flecainide 100 twice daily. Did not go for cardioversion today as she is in sinus rhythm. We will need to stay in the hospital for monitoring of her heart rate till tomorrow. If it stays stable patient able to get discharged. If she goes back into A. fib or a flutter will need to hold her in the hospital for placement of inpatient pacemaker as per discussion with cardiology this morning. ? Cardiology on board.? ? Echo done on November 13 shows EF 70%.? There is history of mild diastolic dysf unction. -Further management as per cardiology. -Creatinine worsened 1.2 today. Previously normal. There is mild DONELL. I will hold Lasix. -She was on 2 L supplemental oxygen. Lungs are clear to auscultation. I will order chest x-ray. Patient was afebrile overnight. I am not suspecting pneumonia at this time. Full code DVT prophylaxis: On Eliquis Attestations Medical Necessity Statement*: Will need to stay in hospital for management of the above.? She will need OLY cardioversion.? Heart rate not controlled at. Coding Level of Care Code Acute Slack Cooper for Chg Fwd Diagnoses Atrial fibrillation with rapid ventricular response I48.91 Obstructive sleep apnea G47.33 PVD (peripheral vascular disease) I73.9 Sinus node dysfunction I49.5 Hypothyroidism E03.9 Hypothyroidism type: acquired Mild diastolic dysfunction I51.9 Mild concentric left ventricular hypertrophy (LVH) I51.7 Essential hypertension I10 Atrial fibrillation I48.20 Atrial fibrillation type: unspecified chronic
--- NOTE | 2021-12-11 12:48 | XR_ITS ---
WS: [id number] Portable AP upright chest, 12/11/2021 Clinical Data: hypoxia Comparison: Portable chest, 12/09/2021. Findings: No nodules, masses or effusions are seen. The heart is slightly enlarged. The pulmonary vas cularity is not increased. No pneumonia or pneumothorax is seen. The aortic arch and descending thora cic aorta show mild tortuosity. There is a recording device over the midportion of the chest. Monitor leads are on the chest wall. XR/XR chest 1V portable [id number] Impression: Atherosclerosis and cardiomegaly.
[2021-12-11] MEDS: azithromycin 500 MG in sodium chloride 0.9% 250 ML 250 MG IV (13:28)
[2021-12-11] MEDS: ipratropium-albuterol 3 mL Neb INHALATION (15:40)
[2021-12-11] MEDS: ondansetron 2 mg/ML SDV 2 mL 4 MG IVP (15:46)
[2021-12-11] MEDS: acetaminophen 325 mg Tablet 650 MG PO (16:52)
--- NOTE | 2021-12-11 18:08 | PC.NURSE ---
{Pt resting in bed. C/O chronic back pain, pain meds given as ordered. Denies any other needs. Bradycardic at times, remains in NSR most of the day. Makes all needs known, CLWR. Will monitor
[2021-12-12] VITALS (25 sets, daily range): BP systolic 107–197; BP diastolic 61–139; PULSE 47–81; RESP 13–32; TEMP 36.6–36.7; O2SAT 86–97
[2021-12-12] MEDS: acetaminophen 325 mg Tablet 650 MG PO (01:15)
[2021-12-12] MEDS: HYDROcodone-acetaminophen 5-325 mg Tablet 1 TAB PO ×2 (02:23→15:09)
[2021-12-12 05:48] LABS: Basophils % 0.7 %; Eosinophils # 0.4 10^3/uL (0.0-0.8); Eosinophils % 7.2 %; Hematocrit 36.5 % (37.0-47.0); Hemoglobin 12.1 g/dL (11.5-15.3); Lymphocytes # 1.5 10^3/uL (0.8-4.8); Lymphocytes % 27.2 %; Mean Corpuscular HGB Conc 33.2 g/dL (30.0-36.0); Mean Corpuscular Hemoglobin 24.7 pg (28.0-34.0); Mean Corpuscular Volume 74.6 fl (81-99); Mean Platelet Volume 10.8 fL (7.4-10.4); Monocytes # 0.6 10^3/uL (0.2-0.9); Monocytes % 10.6 %; Neutrophils # 2.94 10^3/uL (1.8-7.7); Neutrophils % 53.9 %; Nucleated Red Blood Cells % 0 %; Platelet Count 156 10^3/cmm (130-400); Red Blood Count 4.89 10^6/uL (4.1-5.3); Red Cell Distribution Width 16.8 % (12.1-15.1); White Blood Count 5.5 10^3/uL (4.0-10.0)
[2021-12-12 07:18] LABS: Blood Urea Nitrogen 20 mg/dL (8-23); Calcium 8.7 mg/dL (8.5-10.5); Carbon Dioxide 20 mmol/L (22-29); Chloride 104 mmol/L (98-107); Glomerular Filtration Rate 62.5 mL/min (90-130); Glucose 88 mg/dL (65-115); Magnesium 2.1 mg/dL (1.7-2.3); Osmolality Calculated 284 mOsm/kg (285-295); Sodium 136 mmol/L (136-145)
[2021-12-12 07:20] LABS: Anion Gap 16.4 (5-19); Potassium 4.4 mmol/L (3.5-5.1)
[2021-12-12] MEDS: pantoprazole 40 mg SDV IVP (08:09)
[2021-12-12] MEDS: flecainide 100 mg Tablet PO ×2 (08:10→20:16)
[2021-12-12] MEDS: lisinopril 20 mg Tablet 40 MG PO (08:10)
[2021-12-12] MEDS: levothyroxine 50 mcg Tablet PO (08:10)
[2021-12-12] MEDS: apixaban 5 mg Tablet PO (08:10)
[2021-12-12] MEDS: hyDRALAzine 50 mg Tablet 100 MG PO ×3 (08:10→20:16)
[2021-12-12] MEDS: latanoprost 0.005% Op Soln 2.5 mL Btl 1 DROP EYE-BOTH (08:13)
[2021-12-12] MEDS: dorzolamide 2% Op Soln 10 mL Btl 1 DROP EYE-BOTH ×3 (08:13→20:16)
[2021-12-12] MEDS: brimonidine 0.2% Op Soln 5 mL Btl 1 DROP EYE-BOTH ×2 (08:13→17:00)
--- NOTE | 2021-12-12 08:50 | P.PN_ITS ---
Subjective Subjective: This morning. Sinus pause noted on telemetry overnight, she is also had prolonging beats. While awake heart rate has been 40s to 50s at times as well. Vitals/I&O/Wt Last Vital Signs Temp 98.1 F 12/12/21 07:00 Pulse 60 12/12/21 10:00 Resp 16 12/12/21 10:00 BP 107/67 12/12/21 10:00 Pulse Ox 94 12/12/21 10:00 12/11/21 12/12/21 12/12/21 22:59 06:59 14:59 Intake Total 480 / 1330 360 / 360 Output Total 225 / 350 500 / 850 225 / 225 Balance 255 / 980 -500 / 480 135 / 135 Weight last 48 hrs Weight 90.804 kg Physical Exam Narrative: General: Alert oriented x3, HEENT: Normocephalic, atraumatic, EOMI, breathing normally Cardio: irregularly irregular rhythm, bradycardic normal S1-S2, no murmurs_ Respiratory: Good bilateral air entry, no wheezes no rhonchi appreciated GI: Abdomen soft, nontender, nondistended, bowel sounds + Behavior: Appropriate and cooperative Extremities: No lower extremity edema, no cyanosis Data : 12/12/21 05:30 12/12/21 06:46 A&P Assessment and plan (1) Atrial fibrillation with rapid ventricular response: Status: Acute (2) Vertigo: Status: Acute (3) Sinus node dysfunction: Status: Acute (4) PVD (peripheral vascular disease): Status: Acute (5) Hypothyroidism: Status: Acute Qualifiers: Hypothyroidism type: acquired Qualified Code(s): E03.9 - Hypothyroidism, unspecified (6) Mild diastolic dysfunction: Status: Acute (7) Mild concentric left ventricular hypertrophy (LVH): Status: Acute (8) Essential hypertension: Status: Acute (9) Atrial fibrillation: Status: Acute Qualifiers: Atrial fibrillation type: unspecified chronic Qualified Code(s): I48.20 - Chronic atrial fibrillation, unspecified (10) Tachy-negin syndrome: Status: Acute Plan #Atrial fibrillation with RVR, tachybradycardia syndrome #Hypertension #History of anxiety #Chronic diastolic congestive heart failure #Acute kidney injury most likely secondary to diuretic use.?Resolved ? She has been compliant with all her medications ? Continue Eliquis ? Hold Cardizem 120 daily. ? Continue lisinopril 40 daily ? Continue hydralazine 100 3 times daily ? Continue amlodipine 2.5 daily ? Decrease dose of Coreg to 6.25 twice today.? Continue flecainide 100 twice daily.? ? Cardiology on board.? ? Echo done on November 13 shows EF 70%.? There is history of mild diastolic dysfunction. -Further management as per cardiology. -Creatinine normalized. -Off oxygen now on room air. Saturating 97%. ? Patient will need pacemaker placement as per cardiology recommendations. I will discuss with Dr. Flynn. Full code DVT prophylaxis: On Eliquis Attestations Medical Necessity Statement*: need to stay for pacemaker placement Coding Level of Care Code Acute Investment Fund Manager for Chg Fwd Diagnoses Atrial fibrillation with rapid ventricular response I48.91 Vertigo R42 Sinus node dysfunction I49.5 PVD (peripheral vascular disease) I73.9 Hypothyroidism E03.9 Hypothyroidism type: acquired Mild diastolic dysfunction I51.9 Mild concentric left ventricular hypertrophy (LVH) I51.7 Essential hypertension I10 Atrial fibrillation I48.20 Atrial fibrillation type: unspecified chronic Tachy-negin syndrome I49.5
--- NOTE | 2021-12-12 09:47 | P.PN_ITS ---
Subjective Subjective: Patient is feeling well. However is significantly bradycardic today. Coreg held Vitals/I&O/Wt Last Vital Signs Temp 98.1 F 12/12/21 07:00 Pulse 76 12/12/21 08:00 Resp 17 12/12/21 08:00 BP 156/93 12/12/21 08:00 Pulse Ox 94 12/12/21 08:00 12/11/21 12/12/21 12/12/21 22:59 06:59 14:59 Intake Total 480 / 1330 360 / 360 Output Total 225 / 350 500 / 850 225 / 225 Balance 255 / 980 -500 / 480 135 / 135 Weight last 48 hrs Weight 200 lb 3 oz Physical Exam Narrative: GENERAL: Patient is alert, awake and oriented x3. [] NECK: No jugular vein distension. [] HEENT: No cyanosis. No icterus. No pallor. [] HEART: Bradycardic, Regular S1 and S2. No murmur, rub or gallop. [] LUNGS: Clear to auscultate bilaterally. [] ABDOMEN: Soft, nontender and nondistended. Positive bowel sounds. No guarding, rebound or tenderness. [] CENTRAL NERVOUS SYSTEM: Grossly nonfocal. [] EXTREMITIES: Lower extremities with 1+ edema bilaterally. Data : 12/13/21 06:35 12/13/21 04:35 A&P Assessment and plan (1) Atrial fibrillation with rapid ventricular response: Patient's Coreg had to be held because of significant bradycardia with 2.5- second pauses. She has tachybradycardia syndrome. We will recommend permanent pacemaker placement. We will consult Dr. Flynn for that Status: Acute (2) Sinus node dysfunction: Keep holding Coreg Status: Acute (3) Daytime somnolence: Since the heart failure seems to be compensated likely, patient may not require any specific intervention at this time. Advised to continue on the current medications. She is still awaiting the sleep study. Status: Acute (4) Near syncope: Possibly secondary to sick sinus syndrome. Plan for permanent pacemaker placement Status: Acute (5) Hypothyroidism: She is on thyroid replacement. Seems to be clinically euthyroid. Status: Acute Qualifiers: Hypothyroidism type: acquired Qualified Code(s): E03.9 - Hypothyroidism, unspecified (6) Atypical chest pain: Chest pain most likely from the arrhythmia. Her Myocardial perfusion imaging was unremarkable with no evidence of ischemia Status: Acute Plan Other problems are as outlined before. Patient is sick sinus syndrome. Plan for permanent pacemaker placement. Dr. Flynn will be consulted Attestations Medical Necessity Statement*: Care expected to cross 2 midnights Coding Level of Care Code Acute Vacuum Cleaner Mechanic for Chg Fwd Diagnoses Atrial fibrillation with rapid ventricular response I48.91 Sinus node dysfunction I49.5 Daytime somnolence R40.0 Near syncope R55 Hypothyroidism E03.9 Hypothyroidism type: acquired Atypical chest pain R07.89
--- NOTE | 2021-12-12 13:06 | PC.NURSE ---
Pt reported $200 salas missing after family visit. Pt also stated that I gave money to my niece to pay bill . Pt gave permission to call niece to determine how much money was given to her. This nurse spoke with niece, Nahomy, and she counted salas that was given to her by pt. Niece reported $184 dollars salas given to her and $30 salas given to pt son. Reported incident to charge nurse who in turn called security and mix house tender. Security and mix house tender in unit and shown belongings documentation found stating $224 salas upon arrival to unit. Charge nurse, house sup, security and this nurse went into room and discussed with pt. Pt verbalizes understanding about disposition of money. Remaining $10 roll of quarters, bottle of 81mg asa, keys and keychain, and assorted bills placed in bag and in pyxis. Pt aware.
[2021-12-12] MEDS: azithromycin 500 MG in sodium chloride 0.9% 250 ML 250 MG IV (13:26)
[2021-12-12] MEDS: sennosides-docusate Tablet 1 TAB PO ×2 (14:03→17:00)
[2021-12-12 14:58] LABS: Glucose Point of Care 109 mg/dL (70-110)
[2021-12-12] MEDS: ondansetron 2 mg/ML SDV 2 mL 4 MG IVP (15:07)
--- NOTE | 2021-12-12 16:04 | PC.NURSE ---
Addendum entered by Chele Rueda RN 12/12/21 16:16: notified of status Original Note: Pt very anxious, c/o feeling awful . All VSS. Pain med given d/t c/o back pain 03/15. Pt assisted to BSC and back to bed several times per staff. Encouraged to lay down and attempt to rest and relax. Will monitor.
[2021-12-12] MEDS: carvedilol 6.25 mg Tablet PO (17:00)
[2021-12-12] MEDS: chlorhexidine gluconate 4% Btl 118 mL 1 APPLIC TOPICAL (17:00)
--- NOTE | 2021-12-12 19:26 | PC.NURSE ---
Patient gave verbal consent to discuss medical care with daughter, Meredith Terrazas. Phone number [phone].
--- NOTE | 2021-12-12 20:28 | PC.NURSE ---
Patient asked for a goins and ATT envelope to be locked up with remaining belongings.
[2021-12-13] VITALS (23 sets, daily range): BP systolic 97–159; BP diastolic 59–106; PULSE 68–140; RESP 11–31; TEMP 36.4–37.2; O2SAT 86–96
--- NOTE | 2021-12-13 | SCC_ITS ---
Procedure done: Dual-chamber pacemaker implantation 654.5 seconds of fluoroscopic guidance, for a cumulative dose of 187.97 mGy, was provided to Dr. Flynn by the radiology department. C-arm images of the chest were saved for the patient's permanent record. [facility]
[2021-12-13] MEDS: metoprolol tartrate 1 mg/1 mL SDV 5 mL 5 MG IVP (02:11)
--- NOTE | 2021-12-13 02:21 | ECG_ITS ---
[facility] Test Date: 2021-12-13 Pat Name: Kaity Ferro Department: Room: [facility] Gender: Female Roll Up Machine Operator: : [id number] Requested By: Art Palacio Order Number: [id number] Kayleigh MD: James Agrawal M.D. Measurements Intervals [place] Rate: 120 P: IN: QRS: 162 QRSD: 118 T: 11 QT: 321 QTc: 455 Interpretive Statements ATRIAL FIBRILLATION WITH RAPID VENTRICULAR RESPONSE RIGHT AXIS DEVIATION [QRS AXIS > 100] MODERATE INTRAVENTRICULAR CONDUCTION DELAY [110+ ms QRS DURATION] ST DEVIATION AND MODERATE T-WAVE ABNORMALITY, CONSIDER ANTEROLATERAL ISCHEMIA [-0.1+ mV T-WAVE IN V3-V6] Compared to ECG 12/10/2021 10:07:42 Right-axis deviation now present Intraventricular conduction delay now present Possible ischemia now present T-wave abnormality still present Electronically Signed On 12-13-2021 23:36:19 CDT by James Agrawal M.D. [id number]
[2021-12-13] MEDS: HYDROcodone-acetaminophen 5-325 mg Tablet 1 TAB PO ×2 (03:02→14:03)
--- NOTE | 2021-12-13 03:29 | PC.NURSE ---
Change in patient status 0145 patients heart rate went to 140's from 60's. Patient complained of chest pain 10/10 with heaviness. Physician notified. Metoprolol 5mg IVP once ordered and given with no change. EKG A. Fib with RVR. Cardizem gtt ordered and started.
[2021-12-13 05:46] LABS: Anion Gap 16.2 (5-19); Blood Urea Nitrogen 16 mg/dL (8-23); Calcium 9.5 mg/dL (8.5-10.5); Carbon Dioxide 22 mmol/L (22-29); Chloride 104 mmol/L (98-107); Glomerular Filtration Rate 71.5 mL/min (90-130); Glucose 113 mg/dL (65-115); Magnesium 2.1 mg/dL (1.7-2.3); Osmolality Calculated 288 mOsm/kg (285-295); Potassium 4.2 mmol/L (3.5-5.1); Sodium 138 mmol/L (136-145)
[2021-12-13 07:13] LABS: Basophils % 0.5 %; Eosinophils # 0.6 10^3/uL (0.0-0.8); Eosinophils % 8.7 %; Hematocrit 40.7 % (37.0-47.0); Hemoglobin 13.1 g/dL (11.5-15.3); Lymphocytes # 1.4 10^3/uL (0.8-4.8); Lymphocytes % 18.7 %; Mean Corpuscular HGB Conc 32.2 g/dL (30.0-36.0); Mean Corpuscular Hemoglobin 24.4 pg (28.0-34.0); Mean Corpuscular Volume 75.9 fl (81-99); Monocytes # 0.6 10^3/uL (0.2-0.9); Monocytes % 8.7 %; Neutrophils # 4.62 10^3/uL (1.8-7.7); Neutrophils % 63.3 %; Nucleated Red Blood Cells % 0 %; Platelet Count 233 10^3/cmm (130-400); Red Blood Count 5.36 10^6/uL (4.1-5.3); Red Cell Distribution Width 16.8 % (12.1-15.1); White Blood Count 7.3 10^3/uL (4.0-10.0)
--- NOTE | 2021-12-13 07:41 | P.CONIM_ITS ---
Providers/Reason For Consult Consulting Physician/Specialty*: Dr. Flynn cardiothoracic surgery Reason for Consult*: Refractory bradycardia with sinus pauses Requesting Physician: Dr. Agrawal Attending Physician: Domi Child MD Primary Care Provider: Mega Martinez MD History of Present Illness History of Present Illness Kaity Ferro is a 66 year old female whom I been consulted for pacemaker implantation related to refractory bradycardia during therapy for atrial fibrillation with documented sinus pauses. To allow for continued effective management of her A. fib with RVR, pacemaker implantation has been recommended. She has previously been on Eliquis though this was held beginning yesterday morning. She has a prior history for atrial fibrillation and is also being evaluated by Dr. delgadillo and for back surgery, once pacemaker implantation has been completed and she has recovered and her arrhythmia is under good control. Currently, she is resting comfortably in ICU bed #4. Transthoracic echocardiogram from November 13 reveals preserved LV function with trace tricuspid regurgitation. PA pressures are normal. Mildly increased left atrial size. Sestamibi study of November 16 revealed no significant EKG changes no Lexiscan induced chest pain or arrhythmia. Perfusion images revealed unremarkable study with low probability for coronary ischemia. Chest x-ray of December 11 revealed no infiltrates or effusions with moderate cardiomegaly. Review of Systems Eyes: Denies: change in vision or blurry vision ENMT: Denies: throat pain or odynophagia Card: Reports: chest pain, palpitations, irregular heart rhythm, pre-syncope and dyspnea on exertion Resp: Denies: non-productive cough or hemoptysis GI: Denies: nausea or vomiting : Denies: difficulty voiding or dysuria Musc: Reports: back pain Neuro: Reports: numbness in extremities Psych: Reports: anxiety Medications/Allergies Home Medications Medication Instructions Recorded Confirmed Last Taken Type apixaban 5 mg tablet (Eliquis) 5 mg PO BID 08/01/19 12/09/21 11/26/21 History furosemide 20 mg tablet 20 mg PO DAILY PRN 08/01/19 12/09/21 Unknown History hydrocodone 5 mg-acetaminophen 325 1 tab PO BID PRN 08/01/19 12/09/21 11/26/21 History mg tablet latanoprost 0.005 % eye drops 1 drop OPHTHALMIC (EYE) DAILY 08/01/19 12/09/21 11/26/21 History levothyroxine 50 mcg capsule 50 mcg PO DAILY 08/01/19 12/09/21 11/26/21 History dorzolamide 2 % eye drops 1 drp OPHTHALMIC (EYE) TID ml 04/20/21 12/09/21 11/26/21 History amlodipine 2.5 mg tablet 2.5 mg PO DAILY tab 08/10/21 12/09/21 11/26/21 History carvedilol 25 mg tablet 25 mg PO BID tab 08/10/21 12/09/21 11/26/21 History albuterol sulfate 90 mcg/actuation 1 - 2 puff INHALATION Q4H PRN 11/26/21 Unknown History aerosol inhaler brimonidine 0.2 % eye drops 1 drp OPHTHALMIC (EYE) BID 11/26/21 12/09/21 11/26/21 History lisinopril 40 mg tablet 40 mg PO DAILY 11/26/21 12/09/21 11/26/21 History diltiazem HCl 120 mg 120 mg PO DAILY #30 tab 11/27/21 12/09/21 Unknown Rx tablet,extended release 24 hr (Cardizem LA) hydralazine 100 mg tablet 100 mg PO TID #90 tab 11/27/21 12/09/21 Unknown Rx Allergies Allergy/AdvReac Type Severity Reaction Status Date / Time orange juice Allergy Intermediate ADR-Vomitin Verified 12/09/21 14:22 g potassium Allergy Intermediate sick in Verified 12/09/21 14:22 the stomach amoxicillin Allergy unk Verified 12/09/21 14:22 buspirone Allergy unk Verified 12/09/21 14:22 hydralazine Allergy coughing Verified 12/09/21 14:22 and nausea Penicillins Allergy shortness Verified 12/09/21 14:22 of breath povidone-iodine Allergy unk Verified 12/09/21 14:22 [From Betadine] soap [From Betadine] Allergy unk Verified 12/09/21 14:22 Jbmrbrk-AAX-EkB Reductase Allergy FLu like Verified 12/09/21 14:22 Inhibitor symptoms [Rasixnn-Ifa-Bnx Reductase Inhibitor] carvedilol AdvReac Severe cough Verified 12/09/21 14:22 amlodipine AdvReac BLE edema Verified 12/09/21 14:22 valsartan AdvReac unknown Verified 12/09/21 14:22 Current Medications Generic Name Dose Route Start Last Admin Trade Name Aliyah PRN Reason Stop Dose Admin Hydrocodone Bitart/Acetaminophen 1 tab 12/09/21 19:36 12/13/21 03:02 Hydrocodone-Acetaminophen 5-325 Mg Tablet PO 1 tab BID PRN Administration Pain Albuterol/Ipratropium 3 ml 12/11/21 16:00 12/12/21 19:59 Ipratropium-Albuterol 3 Ml Neb INHALATION Not Given Q4H.RESPIRATORY MARGE Apixaban 5 mg 12/10/21 09:00 12/12/21 08:10 Apixaban 5 Mg Tablet PO 5 mg BID MARGE Administration Brimonidine Tartrate 1 drop 12/10/21 09:00 12/12/21 17:00 Brimonidine 0.2% Op Soln 5 Ml Btl EYE-BOTH 1 drop BID MARGE Administration Carvedilol 6.25 mg 12/11/21 09:14 12/12/21 17:00 Carvedilol 6.25 Mg Tablet PO 6.25 mg BID MARGE Administration Chlorhexidine Gluconate 1 applic 12/12/21 18:00 12/12/21 17:00 Chlorhexidine Gluconate 4% Btl 118 Ml TOPICAL 1 applic BID MARGE Administration Dorzolamide HCl 1 drop 12/09/21 21:00 12/12/21 20:16 Dorzolamide 2% Op Soln 10 Ml Btl EYE-BOTH 1 drop TID MARGE Administration Flecainide Acetate 100 mg 12/10/21 21:00 12/12/21 20:16 Flecainide 100 Mg Tablet PO 100 mg Q12H MARGE Administration Furosemide 20 mg 12/10/21 13:15 12/10/21 13:19 Furosemide 10 Mg/Ml Sdv 2ml IVP 20 mg Q24H MARGE Administration Hydralazine HCl 100 mg 12/09/21 21:00 12/12/21 20:16 Hydralazine 50 Mg Tablet PO 100 mg TID MARGE Administration Azithromycin 500 mg/ Sodium 250 mls @ 250 mls/hr 12/11/21 13:00 12/12/21 14:51 Chloride IV Infused Q24H MARGE Infusion Protocol Diltiazem HCl 50 mg/ Sodium 50 mls @ 0 mls/hr 12/13/21 02:45 12/13/21 07:11 Chloride IV 10 mg/hr .Q0M MARGE 10 mls/hr Titration Protocol Per Protocol Latanoprost 1 drop 12/10/21 09:00 12/12/21 08:13 Latanoprost 0.005% Op Soln 2.5 Ml Btl EYE-BOTH 1 drop DAILY MARGE Administration Levothyroxine Sodium 50 mcg 12/10/21 09:00 12/12/21 08:10 Levothyroxine 50 Mcg Tablet PO 50 mcg DAILY MARGE Administration Lisinopril 40 mg 12/10/21 09:00 12/12/21 08:10 Lisinopril 20 Mg Tablet PO 40 mg DAILY MARGE Administration Ondansetron HCl 4 mg 12/09/21 18:15 12/12/21 15:07 Ondansetron 2 Mg/Ml Sdv 2 Ml IVP 4 mg Q6H PRN Administration NAUSEA AND VOMITING Pantoprazole Sodium 40 mg 12/10/21 09:00 12/12/21 08:09 Pantoprazole 40 Mg Sdv IVP 40 mg DAILY MARGE Administration Senna/Docusate Sodium 1 tab 12/12/21 13:49 12/12/21 17:00 Sennosides-Docusate Tablet PO 1 tab BID MARGE Administration PFSH Acute PFSH: Medical History Adenocarcinoma of gallbladder Atrial fibrillation 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 Brother CAD (coronary artery disease) Brother , 2 brothers of heart disease CAD (coronary artery disease) Denies family history of Diabetes Clotting disorder Dementia Hyperlipidemia Psychiatric illness Chronic kidney disease (CKD) Suicide Anesthesia complication Bleeding disorder Family history of premature coronary artery disease Lung disease Cancer Hypertension Stroke Social History Smoking and tobacco status: current every day smoker Alcohol intake: never Vitals/I&O/Wt Last Vital Signs Temp 98 F 12/13/21 04:00 Pulse 132 H 12/13/21 06:00 Resp 24 H 12/13/21 06:00 BP 114/90 12/13/21 06:00 Pulse Ox 91 12/13/21 05:00 12/12/21 12/13/21 12/13/21 22:59 06:59 14:59 Intake Total 480 / 1330 18.083 / 1348.083 4.5 / 4.5 Output Total 700 / 925 600 / 1525 Balance -220 / 405 -581.917 / -176.917 4.5 / 4.5 Weight last 48 hrs Weight 199 lb 8 oz Weight 200 lb 3 oz Physical Exam Const: COMMON NORMALS: no acute distress HENMT: COMMON NORMALS: normocephalic, atraumatic, hearing grossly normal bilaterally, external ears normal and Normal external nose present HEAD & SCALP: normocephalic and atraumatic NOSE: Normal external nose present EXTERNAL EAR: Yes external ears normal Eye: COMMON NORMALS: EOMs intact bilaterally and conjunctivae normal CONJUNCTIVA: Yes conjunctivae normal Neck/C-Spine: COMMON NORMALS: full ROM and no lymphadenopathy Chest: COMMONS NORMALS: normal inspection of the chest and normal palpation of entire chest wall Resp: COMMON NORMALS: normal respiratory effort, No use of accessory muscles and clear to auscultation bilaterally AUSCULTATION: clear to auscultation bilaterally Cardio: COMMON NORMALS: regular rate and S1 normal heart sound present; negative for regular rhythm RATE: regular rate RHYTHM: abnormal rhythm and abnormal rhythm irregularly irregular HEART SOUNDS: S1 normal heart sound p resent GI: COMMON NORMALS: Normal to inspection, nondistended, normoactive bowel sounds present Extremity: COMMON NORMALS: no clubbing, cyanosis or edema Neuro: COMMON NORMALS: moves all extremities, no focal motor deficits and no sensory deficits noted Psych: COMMON NORMALS: mental status grossly normal, cooperative, normal affect and speech normal SPEECH: Yes normal speech Skin: COMMON NORMALS: no rashes or lesions noted GENERAL SKIN EXAM: no rashes or lesions noted Data : 12/13/21 06:35 12/13/21 04:35 A&P Assessment and plan (1) Tachy-negin syndrome: We will plan for dual-chamber pacemaker implantation this morning. Rationale was carefully discussed. All questions answered. Details and risks of the procedure were carefully and frankly discussed. Risks reviewed include the possibility of , stroke, heart attack, major bleeding, infection, pneumonia, pneumothorax requiring chest tube, organ failure, failure to benefit, early migration of the leads requiring revision, prolonged hospital stay, pain after the procedure, need for further procedures, inability to complete the procedure, and need for long-term followup. All questions were answered. Appropriate consents have been provided for review and signature. Presently, at the time of my exam, she is in A. fib with controlled ventricular response. We will plan for dual-lead pacemaker implantation given that she has long episodes of sinus rhythm and that is the ultimate goal of therapy. However, if she remains in atrial fibrillation at the time of leads implantation, we will be unable to obtain a threshold of the atrial lead, and therefore, once returned to sinus rhythm, this threshold may felt to be an adequate. This could require either reprogramming of the pacemaker or even consideration for possible lead placement revision to the atrial lead. Status: Acute Consult Attestations Medical Necessity Statement: Refractory bradycardia with sinus pauses during treatment for atrial fibrillation with rapid ventricular response Time Spent in Patient Care: 16 - 35 minutes Coding Level of Care Code Acute Didactic Program In Dietetics Director for Jordan Espinoza Diagnoses Tachy-negin syndrome I49.5
[2021-12-13] MEDS: flecainide 100 mg Tablet PO (08:05)
[2021-12-13] MEDS: sennosides-docusate Tablet 1 TAB PO ×2 (08:05→17:43)
[2021-12-13] MEDS: levothyroxine 50 mcg Tablet PO (08:05)
[2021-12-13] MEDS: carvedilol 6.25 mg Tablet PO ×2 (08:05→17:43)
[2021-12-13] MEDS: hyDRALAzine 50 mg Tablet 100 MG PO ×3 (08:05→21:54)
[2021-12-13] MEDS: pantoprazole 40 mg SDV IVP (08:05)
[2021-12-13] MEDS: latanoprost 0.005% Op Soln 2.5 mL Btl 1 DROP EYE-BOTH (08:06)
[2021-12-13] MEDS: brimonidine 0.2% Op Soln 5 mL Btl 1 DROP EYE-BOTH ×2 (08:06→17:43)
[2021-12-13] MEDS: dorzolamide 2% Op Soln 10 mL Btl 1 DROP EYE-BOTH ×3 (08:06→21:53)
[2021-12-13] MEDS: sodium chloride 0.9% 1,000 ML 150 ML IV (08:08)
--- NOTE | 2021-12-13 08:17 | P.ANESASSM_ITS ---
Pre-Anesthetic Assessment Height/Weight: Height 1.7 m Weight 90.492 kg Temp Pulse Resp BP Pulse Ox 98 F 132 H 24 H 114/90 91 12/13/21 04:00 12/13/21 06:00 12/13/21 06:00 12/13/21 06:00 12/13/21 05:00 Operation Date: 12/13/21 09:35 Proposed Procedures p Pacemaker Insertion(Not Applicable) - Obed Flynn MD Familial anesthetic complications: none Was Beta Ervin taken within 24 hours: Yes Was Clonidine taken within 24 hours: N/A Last intake: Intake Last Liquid Date 12/12/21 Last Liquid Time 23:30 Last Solid Date 12/12/21 Last Solid Time 20:00 Social Tobacco and No alcohol Exam alert and oriented x 3 tachy, irregular Airway Submandibular: within normal limits Cervical ROM: within normal limits Mallampati: Class II Dentition: false Pulmonary Chronic Obstructive Pulmonary Disease and Sleep Apnea CV/HEM Atrial Fibrillation, Hypertension and Peripheral Vascular Disease Metabolic Thyroid Disease Musc/skel Lower Back Pain Anesthetic Plan ASA status: 3 Anesthesia: Choice Medications/Allergies Home Medications Medication Instructions Recorded Confirmed Last Taken Type apixaban 5 mg tablet (Eliquis) 5 mg PO BID 08/01/19 12/09/21 11/26/21 History furosemide 20 mg tablet 20 mg PO DAILY PRN 08/01/19 12/09/21 Unknown History hydrocodone 5 mg-acetaminophen 325 1 tab PO BID PRN 08/01/19 12/09/21 11/26/21 History mg tablet latanoprost 0.005 % eye drops 1 drop OPHTHALMIC (EYE) DAILY 08/01/19 12/09/21 11/26/21 History levothyroxine 50 mcg capsule 50 mcg PO DAILY 08/01/19 12/09/21 11/26/21 History dorzolamide 2 % eye drops 1 drp OPHTHALMIC (EYE) TID ml 04/20/21 12/09/21 11/26/21 History amlodipine 2.5 mg tablet 2.5 mg PO DAILY tab 08/10/21 12/09/21 11/26/21 History carvedilol 25 mg tablet 25 mg PO BID tab 08/10/21 12/09/21 11/26/21 History albuterol sulfate 90 mcg/actuation 1 - 2 puff INHALATION Q4H PRN 11/26/21 12/09/21 Unknown History aerosol inhaler brimonidine 0.2 % eye drops 1 drp OPHTHALMIC (EYE) BID 11/26/21 12/09/21 11/26/21 History lisinopril 40 mg tablet 40 mg PO DAILY 11/26/21 12/09/21 11/26/21 History diltiazem HCl 120 mg 120 mg PO DAILY #30 tab 11/27/21 12/09/21 Unknown Rx tablet,extended release 24 hr (Cardizem LA) hydralazine 100 mg tablet 100 mg PO TID #90 tab 11/27/21 12/09/21 Unknown Rx Allergies Allergy/AdvReac Type Severity Reaction Status Date / Time orange juice Allergy Intermediate ADR-Vomitin Verified 12/09/21 14:22 g potassium Allergy Intermediate sick in Verified 12/09/21 14:22 the stomach amoxicillin Allergy unk Verified 12/09/21 14:22 buspirone Allergy unk Verified 12/09/21 14:22 hydralazine Allergy coughing Verified 12/09/21 14:22 and nausea Penicillins Allergy shortness Verified 12/09/21 14:22 of breath povidone-iodine Allergy unk Verified 12/09/21 14:22 [From Betadine] soap [From Betadine] Allergy unk Verified 12/09/21 14:22 Saydusb-FHB-HuY Reductase Allergy FLu like Verified 12/09/21 14:22 Inhibitor symptoms [Jpuvmhv-Jbp-Glj Reductase Inhibitor] carvedilol AdvReac Severe cough Verified 12/09/21 14:22 amlodipine AdvReac BLE edema Verified 12/09/21 14:22 valsartan AdvReac unknown Verified 12/09/21 14:22 Current Medications Generic Name Dose Route Start Last Admin Trade Name Freq PRN Reason Stop Dose Admin Hydrocodone Bitart/Acetaminophen 1 tab 12/09/21 19:36 12/13/21 03:02 Hydrocodone-Acetaminophen 5-325 Mg Tablet PO 1 tab BID PRN Administration Pain Albuterol/Ipratropium 3 ml 12/11/21 16:00 12/12/21 19:59 Ipratropium-Albuterol 3 Ml Neb INHALATION Not Given Q4H.RESPIRATORY MARGE Apixaban 5 mg 12/10/21 09:00 12/12/21 08:10 Apixaban 5 Mg Tablet PO 5 mg BID MARGE Administration Brimonidine Tartrate 1 drop 12/10/21 09:00 12/13/21 08:06 Brimonidine 0.2% Op Soln 5 Ml Btl EYE-BOTH 1 drop BID MARGE Administration Carvedilol 6.25 mg 12/11/21 09:14 12/13/21 08:05 Carvedilol 6.25 Mg Tablet PO 6.25 mg BID MARGE Administration Chlorhexidine Gluconate 1 applic 12/12/21 18:00 12/12/21 17:00 Chlorhexidine Gluconate 4% Btl 118 Ml TOPICAL 1 applic BID MARGE Administration Dorzolamide HCl 1 drop 12/09/21 21:00 12/13/21 08:06 Dorzolamide 2% Op Soln 10 Ml Btl EYE-BOTH 1 drop TID MARGE Administration Flecainide Acetate 100 mg 12/10/21 21:00 12/13/21 08:05 Flecainide 100 Mg Tablet PO 100 mg Q12H MARGE Administration Furosemide 20 mg 12/10/21 13:15 12/10/21 13:19 Furosemide 10 Mg/Ml Sdv 2ml IVP 20 mg Q24H MARGE Administration Hydralazine HCl 100 mg 12/09/21 21:00 12/13/21 08:05 Hydralazine 50 Mg Tablet PO 100 mg TID MARGE Administration Azithromycin 500 mg/ Sodium 250 mls @ 250 mls/hr 12/11/21 13:00 12/12/21 14 :51 Chloride IV Infused Q24H MARGE Infusion Protocol Diltiazem HCl 50 mg/ Sodium 50 mls @ 0 mls/hr 12/13/21 02:45 12/13/21 08:13 Chloride IV 12.5 mg/hr .Q0M MARGE 12.5 mls/hr Titration Protocol Per Protocol Sodium Chloride 1,000 mls @ 150 mls/hr 12/13/21 08:00 12/13/21 08:08 Sodium Chloride 0.9% IV 150 mls/hr .Q6H40M MARGE Administration Latanoprost 1 drop 12/10/21 09:00 12/13/21 08:06 Latanoprost 0.005% Op Soln 2.5 Ml Btl EYE-BOTH 1 drop DAILY MARGE Administration Levothyroxine Sodium 50 mcg 12/10/21 09:00 12/13/21 08:05 Levothyroxine 50 Mcg Tablet PO 50 mcg DAILY MARGE Administration Lisinopril 40 mg 12/10/21 09:00 12/13/21 08:06 Lisinopril 20 Mg Tablet PO Not Given DAILY MARGE Ondansetron HCl 4 mg 12/09/21 18:15 12/12/21 15:07 Ondansetron 2 Mg/Ml Sdv 2 Ml IVP 4 mg Q6H PRN Administration NAUSEA AND VOMITING Pantoprazole Sodium 40 mg 12/10/21 09:00 12/13/21 08:05 Pantoprazole 40 Mg Sdv IVP 40 mg DAILY MARGE Administration Senna/Docusate Sodium 1 tab 12/12/21 13:49 12/13/21 08:05 Sennosides-Docusate Tablet PO 1 tab BID MARGE Administration PFSH Anesthesia Medical History Adenocarcinoma of gallbladder Atrial fibrillation 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 Brother CAD (coronary artery disease) Brother , 2 brothers of heart disease CAD (coronary artery disease) Denies family history of Diabetes Clotting disorder Dementia Hyperlipidemia Psychiatric illness Chronic kidney disease (CKD) Suicide Anesthesia complication Bleeding disorder Family history of premature coronary artery disease Lung disease Cancer Hypertension Stroke Social History Smoking and tobacco status: current every day smoker Alcohol intake: never Data Anesthesia : 12/13/21 06:35 12/13/21 04:35 Short CBC 12/12/21 12/13/21 Range/Units 05:30 06:35 WBC 5.5 7.3 (4.0-10.0) 10^3/uL Hgb 12.1 13.1 (11.5-15.3) g/dL Hct 36.5 L 40.7 (37.0-47.0) % MCV 74.6 L 75.9 L (81-99) fl Plt Count 156 233 D (130-400) 10^3/cmm Neut % (Auto) 53.9 63.3 % Neut # (Auto) 2.94 4.62 (1.8-7.7) 10^3/uL BMP 12/12/21 12/12/21 12/13/21 05:30 06:46 04:35 Sodium Cancelled 136 138 Potassium Cancelled 4.4 4.2 Chloride Cancelled 104 104 Carbon Dioxide Cancelled 20 L 22 BUN Cancelled 20 16 Creatinine Cancelled 0.9 0.8 Glucose Cancelled 88 113 Calcium Cancelled 8.7 9.5 Blood Bank 12/13/21 06:35 Blood Type A Positive Rho(D) Type Positive Antibody Screen Negative Cardiac Studies: Echocardiogram 11/13/21 Sestamibi Stress Test (Cardiology) 11/16/21 Cardiac Event Monitor 12/17/20
--- NOTE | 2021-12-13 08:53 | PM.PN ---
Subjective Subjective: Seen this morning. She will be going for pacemaker placement today. Overnight events noted. She again went into A. fib with RVR. Cardizem drip started overnight. seen before going for procedure. she felt ok cardizem stopped prior to procedure Vitals/I&O/Wt Last Vital Signs Temp 99.0 F 12/13/21 08:00 Pulse 128 H 12/13/21 08:00 Resp 31 H 12/13/21 08:00 BP 129/97 12/13/21 08:00 Pulse Ox 95 12/13/21 08:00 12/12/21 12/13/21 12/13/21 22:59 06:59 14:59 Intake Total 480 / 1330 18.083 / 1348.083 19.417 / 19.417 Output Total 700 / 925 600 / 1525 400 / 400 Balance -220 / 405 -581.917 / -176.917 -380.583 / -380.583 Weight last 48 hrs Weight 90.492 kg Weight 90.804 kg Physical Exam Narrative: General: Alert oriented x3, HEENT: Normocephalic, atraumatic, EOMI, breathing normally Cardio: irregularly irregular rhythm, normal S1-S2, no murmurs_ Respiratory: Good bilateral air entry, no wheezes no rhonchi appreciated GI: Abdomen soft, nontender, nondistended, bowel sounds + Behavior: Appropriate and cooperative Extremities: No lower extremity edema, no cyanosis Data : 12/13/21 06:35 12/13/21 04:35 A&P Assessment and plan (1) Tachy-negin syndrome: Status: Acute (2) Atrial fibrillation with rapid ventricular response: Status: Acute (3) Vertigo: Status: Acute (4) Sinus node dysfunction: Status: Acute (5) Obstructive sleep apnea: Status: Acute (6) PVD (peripheral vascular disease): Status: Acute (7) Hypothyroidism: Status: Acute Qualifiers: Hypothyroidism type: acquired Qualified Code(s): E03.9 - Hypothyroidism, unspecified (8) Mild diastolic dysfunction: Status: Acute (9) Mild concentric left ventricular hypertrophy (LVH): Status: Acute (10) Essential hypertension: Status: Acute (11) Atrial fibrillation: Status: Acute Qualifiers: Atrial fibrillation type: unspecified chronic Qualified Code(s): I48.20 - Chronic atrial fibrillation, unspecified Plan #Atrial fibrillation with RVR, tachybradycardia syndrome #Hypertension #History of anxiety #Chronic diastolic congestive heart failure #Acute kidney injury most likely secondary to diuretic use.?Resolved ? She has been compliant with all her medications ? Continue Eliquis ? Hold Cardizem 120 daily. ? Continue lisinopril 40 daily ? Continue hydralazine 100 3 times daily ? Continue amlodipine 2.5 daily ? Coreg to 6.25 twice today.? Continue flecainide 100 twice daily.?AFter pacemaker placement, stop flecainide. Will increase dose of coreg and start on metoprolol afterwards accordingly ? Cardiology on board.? ? Echo done on November 13 shows EF 70%.? There is history of mild diastolic dysfunction. -Further management as per cardiology. -Creatinine normalized. -Off oxygen now on room air.? Saturating 97%. ? Pacemaker placement today Full code DVT prophylaxis: On Eliquis Attestations Medical Necessity Statement*: pacemaker placement today. will need close monitoring tonight. Possible dc in am Coding Level of Care Code Acute Cloth Folder Machine for Chg Fwd Diagnoses Tachy-negin syndrome I49.5 Atrial fibrillation with rapid ventricular response I48.91 Vertigo R42 Sinus node dysfunction I49.5 Obstructive sleep apnea G47.33 PVD (peripheral vascular disease) I73.9 Hypothyroidism E03.9 Hypothyroidism type: acquired Mild diastolic dysfunction I51.9 Mild concentric left ventricular hypertrophy (LVH) I51.7 Essential hypertension I10 Atrial fibrillation I48.20 Atrial fibrillation type: unspecified chronic
--- NOTE | 2021-12-13 09:15 | SC_ITS ---
WS: [id number] C-ARM RADIOGRAPHS CHEST; 2 IMAGES HISTORY: pacemaker insertion COMPARISON: None available. Limited evaluation of the pacemaker insertion. Fluoroscopy provided during pacer insertion. SC/C-arm FL for Pacemaker IMPRESSION: Intraoperative imaging during cardiac pacemaker insertion.
--- NOTE | 2021-12-13 09:30 | PC.NURSE ---
0915 Pt to surgery with OR staff, nils gtt stopped per anesthesiologist. IVF sent with pt.
[2021-12-13] MEDS: lidocaine 2% INJ 20 mL INJECTION ×2 (09:40→10:14)
[2021-12-13] MEDS: vancomycin 1,000 MG SDV 1000 MG IRRIGATION (09:47)
--- NOTE | 2021-12-13 10:22 | P.PN_ITS ---
Subjective Subjective: Patient is s/p pacemaker placement. Stable at this time. In normal sinus rhythm. Vitals/I&O/Wt Last Vital Signs Temp 99.0 F 12/13/21 08:00 Pulse 128 H 12/13/21 08:00 Resp 31 H 12/13/21 08:00 BP 129/97 12/13/21 08:00 Pulse Ox 95 12/13/21 08:00 12/12/21 12/13/21 12/13/21 22:59 06:59 14:59 Intake Total 480 / 1330 18.083 / 1348.083 199.667 / 199.667 Output Total 700 / 925 600 / 1525 550 / 550 Balance -220 / 405 -581.917 / -176.917 -350.333 / -350.333 Weight last 48 hrs Weight 199 lb 8 oz Weight 200 lb 3 oz Physical Exam Narrative: GENERAL: Patient is alert, awake and oriented x3. [] NECK: No jugular vein distension. [] HEENT: No cyanosis. No icterus. No pallor. [] HEART: Bradycardic, Regular S1 and S2. No murmur, rub or gallop. [] LUNGS: Clear to auscultate bilaterally. [] ABDOMEN: Soft, nontender and nondistended. Positive bowel sounds. No guarding, rebound or tenderness. [] CENTRAL NERVOUS SYSTEM: Grossly nonfocal. [] EXTREMITIES: Lower extremities with 1+ edema bilaterally. Data : 12/13/21 06:35 12/13/21 04:35 A&P Assessment and plan (1) Atrial fibrillation with rapid ventricular response: Patient underwent permanent pacemaker placement today with Dr. Flynn today. Currently in normal sinus rhythm. We will uptitrate Coreg back to 25 mg twice daily. If heart rates are not controlled, current start Cardizem. Status: Acute (2) Sinus node dysfunction: Restart Coreg Status: Acute (3) Daytime somnolence: Since the heart failure seems to be compensated likely, patient may not require any specific intervention at this time. Advised to continue on the current medications. She is still awaiting the sleep study. Status: Acute (4) Near syncope: Possibly secondary to sick sinus syndrome. Underwent permanent placement today. Status: Acute (5) Hypothyroidism: She is on thyroid replacement. Seems to be clinically euthyroid. Status: Acute Qualifiers: Hypothyroidism type: acquired Qualified Code(s): E03.9 - Hypothyroidism, unspecified (6) Atypical chest pain: Chest pain most likely from the arrhythmia. Her Myocardial perfusion imaging was unremarkable with no evidence of ischemia Status: Acute Plan Other problems are as outlined before. Patient had sick sinus syndrome. Underwent successful permanent pacemaker placement with Dr. Flynn. Attestations Medical Necessity Statement*: Care expected to cross 2 midnights. Coding Level of Care Code Acute Compensation/Benefits Specialist for [facility] Fwd Diagnoses Atrial fibrillation with rapid ventricular response I48.91 Sinus node dysfunction I49.5 Daytime somnolence R40.0 Near syncope R55 Hypothyroidism E03.9 Hypothyroidism type: acquired Atypical chest pain R07.89
--- NOTE | 2021-12-13 11:05 | P.OP_ITS ---
Operative Report Date of procedure: December 13, 2021 Pre-op diagnosis: Tachybradycardia syndrome with intermittent A. fib with RVR with profound bradycardia and sinus pauses during A. fib treatment Post-op diagnosis: same Procedure done: Dual-chamber pacemaker implantation Implants: Medtronic pacemaker Atrial and ventricular leads Pathology: none sent Surgeon: Obed Flynn Anesthesia: MAC and Local Complications: None Brief History: Patient is a 66-year-old female with history of intermittent atrial fibrillation with rapid ventricular response. During medical management, she develops pro found bradycardia as well as sinus pauses. To allow for continued medical management of her atrial fibrillation, dual-chamber pacemaker is been recommended by cardiology. Details of risk of the procedure were carefully and frankly discussed with the patient. Proper consents have been reviewed and signed. Procedure: Procedure: Ms. Ferro was taken to the OR suite and placed in the supine position over a shoulder roll. She received conscious sedation with continuous anesthesia monitoring by. Her entire chest was sterilely prepped and draped. 1% lidocaine was infiltrated in the left subclavicular region. While in Trendelenburg position, utilizing modified seldinger technique, 2 guidewires were placed in the left subclavian vein. This was confirmed in position by fluoroscopy. Next, after infiltration with lidocaine, a subcutaneous pocket was created beginning from the exit point of the guidewire and extending laterally and inferiorly. Cautery was utilized to create the pocket just above the pectoralis musculature. Hemostasis was confirmed. An antibiotic-soaked sponge was placed in the wound. A dilator and tear-away sheath was placed over the first guidewire and advanced under fluoroscopy. Guidewire and dilator were removed. Next using a combination of curved and straight stylettes, the right ventricular lead was placed in position by fluoroscopy. The distal screw was extended. Interrogation was then performed confirming appropriate parameters. The tear-away sheath was then removed and the ventricular lead was sewn to the floor of the subcutaneous pocket. In a similar fashion dilator and tear-away sheath was placed over the 2nd guide wire and advanced under fluoroscopy. Guidewire and dilator were removed. Straight and curved stylettes were used to position the right atrial lead with fluoroscopy. Distal screw was extended. Interrogation was then performed. Tear-away sheath was then removed. Atrial lead was secured to the floor of the subcutaneous pocket. Pocket was irrigated with antibiotic solution and hemostasis again confirmed. Pacing generator was brought into the field, and after confirmation of hemostasis in the subcutaneous pocket, the leads were connected to the generator with appropriate capture. The entire system was interrogated by fluoroscopy. Leads and generator were secured in the pocket. Sponge and needle count was correct. The wound was then closed in 2 layers of 3-0 Vicryl suture. Skin was reapproximated in a subcuticular manner with 4-0 Monocryl suture. A pressure dressing was applied. The left arm was placed in a sling. The patient had equal breath sounds bilaterally. She was then transferred to back to the ICU, where chest x-ray is currently pending. There were no immediate family available for counseling as we attempted multiple times to contact through available phone numbers provided. Following are the specifics of this system: Right ventricular lead is 58 cm and model 5076. Serial number [id number] Right atrial lead is 52 cm and is model 5076. Serial number [id number]. Ventricular lead had sensing of 6.1mV with an impedance of 646 ohms. Threshold was 0.5 V Atrial lead had sensing of 2.3 mV with an impedance of 475 ohms. Threshold was 0.75 V. [employer] generator: Model # [id number] Serial #[id number]
--- NOTE | 2021-12-13 11:24 | PC.NURSE ---
Addendum entered by Chele Rueda RN 12/13/21 11:28: Immobilizer and dressing in place. Original Note: 1110 Pt back to ICU p PPM placement. VSS. Pt now in paced sinus rhythm, O2 sats in upper 80's, O2 placed on pt at 4LNC. Pt lethargic p anesthesia. IVF continued at ml/h until bag finished per MD. Lung sounds clear, no other issues noted. Will monitor.
[2021-12-13] MEDS: azithromycin 500 MG in sodium chloride 0.9% 250 ML 250 MG IV (12:59)
[2021-12-13] MEDS: FUROsemide 10 mg/mL SDV 2mL 20 MG IVP (14:06)
[2021-12-13] MEDS: metoprolol tartrate 25 mg Tablet PO ×2 (15:39→21:54)
--- NOTE | 2021-12-13 18:23 | PC.NURSE ---
Pt resting in bed with HOB elevated 45 degrees. Ate some dinner. Heart rhythm in afib at this time. Cardizem gtt infusing per order. Dressing c/d/i to L chest wall, immobilizer remains in place. Pt AAOX4. Will monitor.
[2021-12-13] MEDS: vancomycin 1,000 MG in sodium chloride 0.9% 250 ML 250 MG IV (22:44)
[2021-12-14] VITALS (51 sets, daily range): BP systolic 84–146; BP diastolic 59–100; PULSE 68–121; RESP 14–27; TEMP 36.3–37.5; O2SAT 88–96; BMI 32.1
[2021-12-14] MEDS: HYDROcodone-acetaminophen 5-325 mg Tablet 1 TAB PO ×2 (00:14→06:07)
[2021-12-14] MEDS: morphine 4 mg/mL SDV 1 mL 2 MG IVP (02:15)
[2021-12-14 04:52] LABS: Basophils % 0.4 %; Eosinophils # 0.4 10^3/uL (0.0-0.8); Eosinophils % 5.2 %; Hematocrit 42.8 % (37.0-47.0); Hemoglobin 12.8 g/dL (11.5-15.3); Lymphocytes # 1.1 10^3/uL (0.8-4.8); Lymphocytes % 13.9 %; Mean Corpuscular HGB Conc 29.9 g/dL (30.0-36.0); Mean Corpuscular Hemoglobin 24.7 pg (28.0-34.0); Mean Corpuscular Volume 82.6 fl (81-99); Mean Platelet Volume 10.8 fL (7.4-10.4); Monocytes # 0.9 10^3/uL (0.2-0.9); Neutrophils # 5.64 10^3/uL (1.8-7.7); Neutrophils % 69.1 %; Nucleated Red Blood Cells % 0 %; Platelet Count 195 10^3/cmm (130-400); Red Blood Count 5.18 10^6/uL (4.1-5.3); White Blood Count 8.2 10^3/uL (4.0-10.0)
[2021-12-14 05:10] LABS: Anion Gap 17.6 (5-19); Blood Urea Nitrogen 19 mg/dL (8-23); Calcium 9.4 mg/dL (8.5-10.5); Carbon Dioxide 20 mmol/L (22-29); Chloride 102 mmol/L (98-107); Glomerular Filtration Rate 49.5 mL/min (90-130); Glucose 110 mg/dL (65-115); Magnesium 2.1 mg/dL (1.7-2.3); Osmolality Calculated 283 mOsm/kg (285-295); Potassium 4.6 mmol/L (3.5-5.1); Sodium 135 mmol/L (136-145)
--- NOTE | 2021-12-14 06:39 | PM.PN ---
Subjective Subjective: Ms. Feror stated she rested very well last night. She sitting up on the side of bed this morning during rounds. She appears to have alternating between sinus rhythm and A. fib with controlled ventricular response. Left arm immobilizer was removed. Outer pressure dressing was removed. Inner dressing is clean and dry. There is mild ecchymosis though no evidence for substantial fluid collection. Moderate tenderness at the incision site. Vital signs are stable. She is afebrile. Vitals/I&O/Wt Last Vital Signs Temp 97.4 F L 12/14/21 04:00 Pulse 78 12/14/21 06:00 Resp 24 H 12/14/21 06:00 BP 146/100 12/14/21 06:00 Pulse Ox 94 12/14/21 06:00 12/13/21 12/13/21 12/14/21 14:59 22:59 06:59 Intake Total 1652.167 / 1652.167 514.958 / 2167.125 1070 / 3237.125 Output Total 1000 / 1000 350 / 1350 Balance 652.167 / 652.167 164.958 / 737.884 3147 / 1887.125 Weight last 48 hrs Weight 199 lb 8 oz Physical Exam Chest: COMMONS NORMALS: normal inspection of the chest and normal palpation of entire chest wall OTHER: Inner dressing is clean and dry. No evidence for fluid collection. Mild ecchymosis. Resp: COMMON NORMALS: normal respiratory effort and clear to auscultation bilaterally AUSCULTATION: clear to auscultation bilaterally Cardio: COMMON NORMALS: regular rate RATE: regular rate RHYTHM: abnormal rhythm irregularly irregular Extremity: COMMON NORMALS: no clubbing, cyanosis or edema Data : 12/14/21 04:20 12/14/21 04:20 A&P Assessment and plan (1) Status post cardiac pacemaker procedure: Postop day #1 status post pacemaker implantation Patient has been reminded to not raise her left hand above eye level for 1 week. I will leave inner surgical dressing on for another 24 hours. I would hold anticoagulation for at least another 24 hours. Status: Acute Attestations Medical Necessity Statement*: Status post pacemaker implantation secondary to tachybradycardia syndrome Coding Level of Care Code Acute Housekeeping Manager for [facility] Diagnoses Status post cardiac pacemaker procedure Z95.0
--- NOTE | 2021-12-14 07:00 | PC.NURSE ---
Shift Summary Patient had an uneventful shift-remains on room air and alert/oriented x4. Cardizem gtt infusing per protocol please see MAR for infusion rate. Patient ambulates to BSC with assistance from nurse. Surgical incision noted to left upper chest covered with dressing. Dr. Flynn at bedside this AM-removed shoulder immobilizer and gave verbal orders to interrogate pacemaker today.
--- NOTE | 2021-12-14 07:02 | ANE.PACU2 ---
Inpatient post-anesthesia follow up: Airway intact: Yes Vital signs: Temperature 97.4 F Pulse Rate 78 Respiratory Rate 24 Blood Pressure 146/100 Pulse Oximetry 94 Oxygen Delivery Me thod Room Air Oxygen Flow Rate 2 Fraction of Inspir ed Oxygen Hydration adequate: Yes Nausea and vomiting: No Pain level: 2 Mental status: Baseline
[2021-12-14] MEDS: TRAMadol 50 mg Tablet PO (08:19)
[2021-12-14] MEDS: levothyroxine 50 mcg Tablet PO (08:19)
[2021-12-14] MEDS: carvedilol 6.25 mg Tablet PO (08:19)
[2021-12-14] MEDS: hyDRALAzine 50 mg Tablet 100 MG PO ×3 (08:19→20:12)
[2021-12-14] MEDS: pantoprazole DR 40 mg Tablet PO (08:19)
[2021-12-14] MEDS: lisinopril 20 mg Tablet 40 MG PO (08:19)
[2021-12-14] MEDS: dorzolamide 2% Op Soln 10 mL Btl 1 DROP EYE-BOTH ×3 (08:24→20:15)
[2021-12-14] MEDS: brimonidine 0.2% Op Soln 5 mL Btl 1 DROP EYE-BOTH ×2 (08:24→18:39)
[2021-12-14] MEDS: latanoprost 0.005% Op Soln 2.5 mL Btl 1 DROP EYE-BOTH (08:25)
[2021-12-14] MEDS: metoprolol tartrate 50 mg Tablet PO (08:39)
--- NOTE | 2021-12-14 08:40 | P.PN_ITS ---
Subjective Subjective: Patient underwent permanent pacemaker placement yesterday. Feeling well. Still in A. fib with heart rates are controlled. Vitals/I&O/Wt Last Vital Signs Temp 97.4 F L 12/14/21 04:00 Pulse 116 H 12/14/21 08:30 Resp 27 H 12/14/21 08:30 BP 117/73 12/14/21 08:30 Pulse Ox 92 12/14/21 08:30 12/13/21 12/14/21 12/14/21 22:59 06:59 14:59 Intake Total 514.958 / 2167.125 1070 / 3237.125 Output Total 350 / 1350 Balance 164.958 / 520.344 1054 / 1887.125 Weight last 48 hrs Weight 204 lb 11.2 oz Weight 199 lb 8 oz Physical Exam Narrative: GENERAL: Patient is alert, awake and oriented x3. [] NECK: No jugular vein distension. [] HEENT: No cyanosis. No icterus. No pallor. [] HEART: Bradycardic, Regular S1 and S2. No murmur, rub or gallop. [] LUNGS: Clear to auscultate bilaterally. [] ABDOMEN: Soft, nontender and nondistended. Positive bowel sounds. No guarding, rebound or tenderness. [] CENTRAL NERVOUS SYSTEM: Grossly nonfocal. [] EXTREMITIES: Lower extremities with 1+ edema bilaterally. Data : 12/14/21 04:20 12/15/21 00:20 A&P Assessment and plan (1) Atrial fibrillation with rapid ventricular response: Patient underwent permanent pacemaker placement today with Dr. Flynn on 12/13. Still in A. fib alternating with normal sinus rhythm. Heart rate is controlled. Coreg was put back on 25 mg twice daily. Continue Cardizem. If heart rates become uncontrolled, can uptitrate Cardizem further. Anticoagulation to be started tomorrow. Status: Acute (2) Sinus node dysfunction: Restart Coreg Status: Acute (3) Daytime somnolence: Since the heart failure seems to be compensated likely, patient may not require any specific intervention at this time. Advised to continue on the current medications. She is still awaiting the sleep study. Status: Acute (4) Near syncope: Possibly secondary to sick sinus syndrome. Underwent permanent placement on 12/13. Status: Acute (5) Hypothyroidism: She is on thyroid replacement. Seems to be clinically euthyroid. Status: Acute Qualifiers: Hypothyroidism type: acquired Qualified Code(s): E03.9 - Hypothyroidism, unspecified (6) Atypical chest pain: Chest pain most likely from the arrhythmia. Her Myocardial perfusion imaging was unremarkable with no evidence of ischemia Status: Acute Plan Other problems are as outlined before. Patient had sick sinus syndrome. Underwent successful permanent pacemaker placement with Dr. Flynn. Plan for observing for today as heart rates are still fluctuating. Attestations Medical Necessity Statement*: Care expected to cross 2 midnights. Coding Level of Care Code Acute Process Engineering Intern for g Fwd Diagnoses Atrial fibrillation with rapid ventricular response I48.91 Sinus node dysfunction I49.5 Daytime somnolence R40.0 Near syncope R55 Hypothyroidism E03.9 Hypothyroidism type: acquired Atypical chest pain R07.89
--- NOTE | 2021-12-14 08:43 | PC.SOCIAL ---
IMM Update pg 2 of IMM updated and reviewed w/ patient. Copy provided and Copy in chart updated.
--- NOTE | 2021-12-14 08:56 | P.PN_ITS ---
Subjective Subjective: Seen this morning. She is doing well. She was seen by Dr. Flynn. Heart rate still uncontrolled 110 and on Cardizem drip. Pacemaker was placed uneventfully yesterday. Dressing is still intact. Plan to remove dressing tomorrow. Hold off on anticoagulation today. Eliquis to be started tomorrow. Patient has no complaints right now. She states she actually feels a lot better compared to before. Vitals/I&O/Wt Last Vital Signs Temp 97.4 F L 12/14/21 04:00 Pulse 76 12/14/21 10:00 Resp 15 12/14/21 10:00 BP 111/67 12/14/21 09:45 Pulse Ox 94 12/14/21 10:00 12/13/21 12/14/21 12/14/21 22:59 06:59 14:59 Intake Total 514.958 / 2167.125 1070 / 3237.125 441.333 / 441.333 Output Total 350 / 1350 200 / 200 Balance 164.958 / 103.961 3619 / 1887.125 241.333 / 241.333 Weight last 48 hrs Weight 92.85 kg Weight 90.492 kg Physical Exam Narrative: General: Alert oriented x3, HEENT: Normocephalic, atraumatic, EOMI, breathing normally Cardio: irregularly irregular rhythm, normal S1-S2, no murmurs_ Respiratory: Good bilateral air entry, no wheezes no rhonchi appreciated GI: Abdomen soft, nontender, nondistended, bowel sounds + Behavior: Appropriate and cooperative Extremities: No lower extremity edema, no cyanosis Data : 12/14/21 04:20 12/14/21 04:20 A&P Assessment and plan (1) Status post cardiac pacemaker procedure: Status: Acute (2) Tachy-negin syndrome: Status: Acute (3) Atrial fibrillation with rapid ventricular response: Status: Acute (4) Sinus node dysfunction: Status: Acute (5) Obstructive sleep apnea: Status: Acute (6) PVD (peripheral vascular disease): Status: Acute (7) Hypothyroidism: Status: Acute Qualifiers: Hypothyroidism type: acquired Qualified Code(s): E03.9 - Hypothyroidism, unspecified (8) Mild diastolic dysfunction: Status: Acute (9) Mild concentric left ventricular hypertrophy (LVH): Status: Acute (10) Essential hypertension: Status: Acute (11) Atrial fibrillation: Status: Acute Qualifiers: Atrial fibrillation type: unspecified chronic Qualified Code(s): I48.20 - Chronic atrial fibrillation, unspecified Plan #Atrial fibrillation with RVR, tachybradycardia syndrome status post pacemaker #Hypertension #History of anxiety #Chronic diastolic congestive heart failure #Acute kidney injury most likely secondary to diuretic use.?Resolved ? She has been compliant with all her medications ? Hold Eliquis ? Cardizem 120 daily. May increase to 240. If needed. ? Continue lisinopril 40 daily ? Continue hydralazine 100 3 times daily ? Continue amlodipine 2.5 daily ? Coreg 25 twice daily. Wean off Cardizem drip. ? Cardiology on board.? ? Echo done on November 13 shows EF 70%.? There is history of mild diastolic dysfunction. -Further management as per cardiology. -Creatinine normalized. -Patient status post pacemaker. Dressing will be removed tomorrow. Eliquis will be restarted tomorrow. Full code DVT prophylaxis: On Eliquis Attestations Medical Necessity Statement*: Status post pacemaker. Heart rate still uncontrolled. Will need to stay in the hospital tonight for optimization of medications. Most likely plan for discharge tomorrow. Coding Level of Care Code Acute Creative Perfumer for [facility] Fwd Diagnoses Status post cardiac pacemaker procedure Z95.0 Tachy-negin syndrome I49.5 Atrial fibrillation with rapid ventricular response I48.91 Sinus node dysfunction I49.5 Obstructive sleep apnea G47.33 PVD (peripheral vascular disease) I73.9 Hypothyroidism E03.9 Hypothyroidism type: acquired Mild diastolic dysfunction I51.9 Mild concentric left ventricular hypertrophy (LVH) I51.7 Essential hypertension I10 Atrial fibrillation I48.20 Atrial fibrillation type: unspecified chronic
[2021-12-14] MEDS: vancomycin 1,000 MG in sodium chloride 0.9% 250 ML 250 MG IV (10:54)
--- NOTE | 2021-12-14 12:43 | PC.SOCIAL ---
IMM Updated pg 2 of IMM updated and reviewed w/ patient. Copy provided and copy in chart updated, initialed and dated.
[2021-12-14] MEDS: azithromycin 500 MG in sodium chloride 0.9% 250 ML 250 MG IV (12:47)
[2021-12-14] MEDS: FUROsemide 10 mg/mL SDV 2mL 20 MG IVP (14:24)
--- NOTE | 2021-12-14 18:08 | PC.NURSE ---
Transfer to [facility] Report called. Pt transfered to [facility]-2 via wheelchair. belongings at bedside. keys locked in pixis. pt hooked up to bedside monitor.
[2021-12-14] MEDS: sennosides-docusate Tablet 1 TAB PO (18:37)
[2021-12-14] MEDS: carvedilol 25 mg Tablet PO (18:37)
[2021-12-15] VITALS (11 sets, daily range): BP systolic 102–138; BP diastolic 55–91; PULSE 72–132; RESP 17–24; TEMP 36.4–37.1; O2SAT 92–94
[2021-12-15] MEDS: vancomycin 1,000 MG in sodium chloride 0.9% 250 ML 250 MG IV ×3 (00:29→23:37)
[2021-12-15 01:12] LABS: Blood Urea Nitrogen 16 mg/dL (8-23); Calcium 8.9 mg/dL (8.5-10.5); Carbon Dioxide 22 mmol/L (22-29); Chloride 102 mmol/L (98-107); Glomerular Filtration Rate 55.3 mL/min (90-130); Glucose 125 mg/dL (65-115); Magnesium 1.8 mg/dL (1.7-2.3); Osmolality Calculated 287 mOsm/kg (285-295); Sodium 137 mmol/L (136-145)
[2021-12-15 01:19] LABS: Anion Gap 16.9 (5-19); Potassium 3.9 mmol/L (3.5-5.1)
[2021-12-15] MEDS: TRAMadol 50 mg Tablet PO ×2 (06:35→17:30)
[2021-12-15] MEDS: docusate sodium 100 mg Capsule PO ×2 (06:39→17:31)
[2021-12-15] MEDS: pantoprazole DR 40 mg Tablet PO (08:22)
[2021-12-15] MEDS: sennosides-docusate Tablet 1 TAB PO ×2 (08:22→17:30)
[2021-12-15] MEDS: hyDRALAzine 50 mg Tablet 100 MG PO ×3 (08:22→21:21)
[2021-12-15] MEDS: lisinopril 20 mg Tablet 40 MG PO (08:22)
[2021-12-15] MEDS: carvedilol 25 mg Tablet PO ×2 (08:22→17:30)
[2021-12-15] MEDS: levothyroxine 50 mcg Tablet PO (08:22)
[2021-12-15 09:15] LABS: Basophils # 0.1 10^3/uL (0.0-0.1); Basophils % 0.9 %; Eosinophils # 0.4 10^3/uL (0.0-0.8); Eosinophils % 6.1 %; Hematocrit 44.8 % (37.0-47.0); Hemoglobin 13.2 g/dL (11.5-15.3); Lymphocytes # 1.4 10^3/uL (0.8-4.8); Lymphocytes % 20.6 %; Mean Corpuscular HGB Conc 29.5 g/dL (30.0-36.0); Mean Corpuscular Hemoglobin 24.7 pg (28.0-34.0); Mean Corpuscular Volume 83.7 fl (81-99); Monocytes # 0.6 10^3/uL (0.2-0.9); Monocytes % 9.6 %; Neutrophils # 4.11 10^3/uL (1.8-7.7); Neutrophils % 62.6 %; Nucleated Red Blood Cells % 0 %; Platelet Count 190 10^3/cmm (130-400); Red Blood Count 5.35 10^6/uL (4.1-5.3); Red Cell Distribution Width 17.2 % (12.1-15.1); White Blood Count 6.6 10^3/uL (4.0-10.0)
[2021-12-15] MEDS: dorzolamide 2% Op Soln 10 mL Btl 1 DROP EYE-BOTH ×2 (09:20→21:21)
[2021-12-15] MEDS: latanoprost 0.005% Op Soln 2.5 mL Btl 1 DROP EYE-BOTH (09:20)
[2021-12-15] MEDS: dilTIAZem 60 mg Tablet PO (09:20)
[2021-12-15] MEDS: brimonidine 0.2% Op Soln 5 mL Btl 1 DROP EYE-BOTH ×2 (09:21→17:35)
[2021-12-15] MEDS: azithromycin 250 mg Tablet 500 MG PO (09:31)
[2021-12-15] MEDS: FUROsemide 10 mg/mL SDV 2mL 20 MG IVP (13:50)
--- NOTE | 2021-12-15 14:35 | PM.PN ---
Subjective Subjective: Seen this morning. Overnight patient developed more pain around pm site now more swollen around the area. She has pain even to light touch. Otherwise she feels okay. Heart rhythm overnight was atrial fibrillation with RVR with rates into the 130s. Vitals/I&O/Wt Last Vital Signs Temp 97.6 F 12/15/21 11:33 Pulse 80 12/15/21 11:33 Resp 24 H 12/15/21 11:33 BP 114/55 12/15/21 11:33 Pulse Ox 93 12/15/21 11:33 12/14/21 12/15/21 12/15/21 22:59 06:59 14:59 Intake Total 608.667 / 1950.000 250 / 2200.000 1450 / 1450 Output Total 1250 / 1650 2 / 1652 Balance -641.333 / 300.000 248 / 129.116 0598 / 1450 Weight last 48 hrs Weight 90.31 kg Weight 92.85 kg Physical Exam Narrative: General: Alert oriented x3, HEENT: Normocephalic, atraumatic, EOMI, breathing normally Cardio: irregularly irregular rhythm,rate 110-120 at bedside normal S1-S2, no murmurs, pacemaker insertion site incision appears clean, no drainage noted however there is surrounding edema and mild echymoses and swelling present, quite tender to palpation, Respiratory: Good bilateral air entry, no wheezes no rhonchi appreciated GI: Abdomen soft, nontender, nondistended, bowel sounds + Behavior: Appropriate and cooperative Extremities: No lower extremity edema, no cyanosis Data : 12/15/21 09:05 12/15/21 00:20 A&P Assessment and plan (1) Status post cardiac pacemaker procedure: Status: Acute (2) Tachy-negin syndrome: Status: Acute (3) Atrial fibrillation with rapid ventricular response: Status: Acute (4) Sinus node dysfunction: Status: Acute (5) Obstructive sleep apnea: Status: Acute (6) Hypothyroidism: Status: Acute Qualifiers: Hypothyroidism type: acquired Qualified Code(s): E03.9 - Hypothyroidism, unspecified (7) Leg swelling: Status: Acute (8) Contusion of left knee: Status: Acute (9) Contusion of right knee: Status: Acute (10) Mild diastolic dysfunction: Status: Acute (11) Mild concentric left ventricular hypertrophy (LVH): Status: Acute (12) Essential hypertension: Status: Acute (13) Atrial fibrillation: Status: Acute Qualifiers: Atrial fibrillation type: unspecified chronic Qualified Code(s): I48.20 - Chronic atrial fibrillation, unspecified Plan #Atrial fibrillation with RVR, tachybradycardia syndrome s/p pacemaker placement #Hypertension #History of anxiety #Chronic diastolic congestive heart failure #Acute kidney injury most likely secondary to diuretic use.?Resolved ? She has been compliant with all her medications ? Hold eliquis for now ? Continue lisinopril 40 daily ? Continue hydralazine 100 3 times daily ? Coreg 25 mg bid twice today.? Continue flecainide 100 twice daily. cardizem 30 mg q6h ? Cardiology on board.? ? Echo done on November 13 shows EF 70%.? There is history of mild diastolic dysfunction. -Further management as per cardiology. -Creatinine normalized.DONELL resolved - POssible pacemaker site hematoma vs. developing infection. Continue vancomycin IV for now. Monitor wbc and drainage. COntinue to hold eliquis. Apply pressure with 5lb sand bag. RN updated. - DIscussed with Dr. cardoza and Dr. Tomas. Full code DVT prophylaxis: SCDS. Holding eliquis Attestations Medical Necessity Statement*: HR still uncontrolled. Will need optimization of medications and management of pacemaker site. Coding Level of Care Code Acute Professional Engineer for [facility] Fwd Diagnoses Status post cardiac pacemaker procedure Z95.0 Tachy-negin syndrome I49.5 Atrial fibrillation with rapid ventricular response I48.91 Sinus node dysfunction I49.5 Obstructive sleep apnea G47.33 Hypothyroidism E03.9 Hypothyroidism type: acquired Leg swelling M79.89 Contusion of left knee S80.02XA Contusion of right knee S80.01XA Mild diastolic dysfunction I51.9 Mild concentric left ventricular hypertrophy (LVH) I51.7 Essential hypertension I10 Atrial fibrillation I48.20 Atrial fibrillation type: unspecified chronic
[2021-12-15] MEDS: potassium chloride ER 20 mEq Tablet 40 MEQ PO (15:37)
[2021-12-15] MEDS: magnesium sulfate premix 2 GM/50 ML PIGGYBACK IV (15:37)
[2021-12-15] MEDS: flecainide 100 mg Tablet PO ×2 (15:42→21:48)
[2021-12-15] MEDS: dilTIAZem 30 mg Tablet PO ×2 (17:31→23:37)
[2021-12-16] VITALS (7 sets, daily range): BP systolic 95–147; BP diastolic 63–99; PULSE 70–97; RESP 16–22; TEMP 36.7–36.9; O2SAT 92–96
[2021-12-16 03:49] LABS: Basophils # 0.1 10^3/uL (0.0-0.1); Basophils % 0.9 %; Eosinophils # 0.4 10^3/uL (0.0-0.8); Eosinophils % 5.9 %; Hematocrit 35.4 % (37.0-47.0); Hemoglobin 11.7 g/dL (11.5-15.3); Lymphocytes % 29.9 %; Mean Corpuscular HGB Conc 33.1 g/dL (30.0-36.0); Mean Corpuscular Hemoglobin 24.4 pg (28.0-34.0); Mean Corpuscular Volume 73.9 fl (81-99); Mean Platelet Volume 11.3 fL (7.4-10.4); Monocytes # 0.7 10^3/uL (0.2-0.9); Monocytes % 11.1 %; Neutrophils % 51.7 %; Nucleated Red Blood Cells % 0 %; Platelet Count 167 10^3/cmm (130-400); Red Blood Count 4.79 10^6/uL (4.1-5.3); Red Cell Distribution Width 16.9 % (12.1-15.1); White Blood Count 6.6 10^3/uL (4.0-10.0)
[2021-12-16 04:16] LABS: Anion Gap 16.2 (5-19); Blood Urea Nitrogen 21 mg/dL (8-23); Calcium 8.9 mg/dL (8.5-10.5); Carbon Dioxide 19 mmol/L (22-29); Chloride 105 mmol/L (98-107); Glomerular Filtration Rate 62.5 mL/min (90-130); Glucose 90 mg/dL (65-115); Osmolality Calculated 285 mOsm/kg (285-295); Potassium 4.2 mmol/L (3.5-5.1); Sodium 136 mmol/L (136-145)
--- NOTE | 2021-12-16 06:12 | PM.PN ---
Subjective Subjective: Postop day #3 status post dual-chamber pacemaker implantation. Outer dressings been removed. There is mild ecchymosis but no substantial fluid collection noted. She states she feels better. Vitals/I&O/Wt Last Vital Signs Temp 98.0 F 12/16/21 04:00 Pulse 85 12/16/21 05:50 Resp 18 12/16/21 04:00 BP 127/73 12/16/21 04:00 Pulse Ox 92 12/16/21 04:00 12/15/21 12/15/21 12/16/21 14:59 22:59 06:59 Intake Total 1450 / 1450 1330 / 2780 250 / 3030 Output Total 1400 / 1400 680 / 2080 Balance 1450 / 1450 -70 / 1380 -430 / 950 Weight last 48 hrs Weight 199 lb 8 oz Weight 199 lb 1.6 oz Weight 204 lb 11.2 oz Physical Exam Chest: OTHER: Inner surgical dressing is clean and dry. Mild ecchymosis. No substantial fluid collection or unexpected swelling in the region. Data : 12/16/21 03:24 12/16/21 03:24 A&P Assessment and plan (1) Status post cardiac pacemaker procedure: Postop day 3 May remove dressing later today, paint incision with Betadine, and recover. Limit raising left hand above eye level for 1 week. May follow-up in pacemaker clinic. Status: Acute Attestations Medical Necessity Statement*: Status post pacemaker implantation secondary to profound sinus pauses. Treatment for atrial fibrillation. Coding Level of Care Code Acute Distribution District Supervisor for [facility] Diagnoses Status post cardiac pacemaker procedure Z95.0
[2021-12-16] MEDS: brimonidine 0.2% Op Soln 5 mL Btl 1 DROP EYE-BOTH (08:51)
[2021-12-16] MEDS: azithromycin 250 mg Tablet 500 MG PO (08:51)
[2021-12-16] MEDS: lisinopril 20 mg Tablet 40 MG PO (08:52)
[2021-12-16] MEDS: sennosides-docusate Tablet 1 TAB PO (08:52)
[2021-12-16] MEDS: carvedilol 25 mg Tablet PO (08:52)
[2021-12-16] MEDS: hyDRALAzine 50 mg Tablet 100 MG PO (08:52)
[2021-12-16] MEDS: dilTIAZem 30 mg Tablet PO (08:53)
[2021-12-16] MEDS: levothyroxine 50 mcg Tablet PO (08:53)
[2021-12-16] MEDS: pantoprazole DR 40 mg Tablet PO (08:53)
[2021-12-16] MEDS: flecainide 100 mg Tablet PO (09:00)
[2021-12-16] MEDS: latanoprost 0.005% Op Soln 2.5 mL Btl 1 DROP EYE-BOTH (09:03)
[2021-12-16] MEDS: dorzolamide 2% Op Soln 10 mL Btl 1 DROP EYE-BOTH (09:03)
--- NOTE | 2021-12-16 09:23 | P.PN_ITS ---
Subjective Subjective: Patient is doing okay. The hematoma seems to be slowly resolving. Tenderness has significantly improved. Patient remains afebrile. Vitals are stable. Heart rate seems to be getting under control. Still has intermittent atrial fibrillation. Medications: Medication Review Details: Current Medications Hydrocodone Bitart/Acetaminophen (Hydrocodone-Acetaminophen 5-325 Mg Tablet) 1 tab PO Q4H PRN PRN Reason: MODERATE PAIN Last Admin: 12/14/21 06:07 Dose: 1 tab Documented by: Al Hydrox/Mg Hydrox/Simethicone (Nkgh-Xba-Fbzulclaf-Sera 30 Ml Udc) 30 ml PO Q4H PRN PRN Reason: INDIGESTION Albuterol Sulfate (Albuterol 8 Gm Mdi) 2 puff INHALATION Q6H.RESPIRATORY PRN PRN Reason: SHORTNESS OF BREATH Albuterol/Ipratropium (Ipratropium-Albuterol 3 Ml Neb) 3 ml INHALATION Q4H.RESPIRATORY PRN PRN Reason: SHORTNESS OF BREATH Apixaban (Apixaban 5 Mg Tablet) 5 mg PO BID@0900,2100 [facility] Last Admin: 12/15/21 09:31 Dose: Not Given Documented by: Bisacodyl (Bisacodyl 5 Mg Tablet) 5 mg PO Q6H PRN PRN Reason: Constipation (Use 2nd) Bisacodyl (Bisacodyl 10 Mg Supp) 10 mg W[place] Q6H PRN PRN Reason: Constipation (Use 5th) Bismuth Subsalicylate (Bismuth Subsalicylate 240 Ml Btl) 30 ml PO PRN PRN PRN Reason: DIARRHEA Brimonidine Tartrate (Brimonidine 0.2% Op Soln 5 Ml Btl) 1 drop EYE-BOTH BID [facility] Last Admin: 12/16/21 08:51 Dose: 1 drop Documented by: Carvedilol (Carvedilol 25 Mg Tablet) 25 mg PO BID [facility] Last Admin: 12/16/21 08:52 Dose: 25 mg Documented by: Diltiazem HCl (Diltiazem 30 Mg Tablet) 30 mg PO Q8H [facility] Last Admin: 12/16/21 08:53 Dose: 30 mg Documented by: Docusate Sodium (Docusate Sodium 100 Mg Capsule) 100 mg PO BID PRN PRN Reason: Constipation (Use 1st) Last Admin: 12/15/21 17:31 Dose: 100 mg Documented by: Dorzolamide HCl (Dorzolamide 2% Op Soln 10 Ml Btl) 1 drop EYE-BOTH TID [facility] Last Admin: 12/16/21 09:03 Dose: 1 drop Documented by: Flecainide Acetate (Flecainide 100 Mg Tablet) 100 mg PO 0900,2100 [facility] Last Admin: 12/16/21 09:00 Dose: 100 mg Documented by: Furosemide (Furosemide 10 Mg/Ml Sdv 2ml) 20 mg IVP Q24H [facility] Last Admin: 12/15/21 13:50 Dose: 20 mg Documented by: Guaifenesin (Guaifenesin 100 Mg/5 Ml Udc 10 Ml) 200 mg PO Q4H PRN PRN Reason: COUGH Hydralazine HCl (Hydralazine 50 Mg Tablet) 100 mg PO TID [facility] Last Admin: 12/16/21 08:52 Dose: 100 mg Documented by: Vancomycin HCl 1,000 mg/ (Sodium Chloride) 250 mls @ 250 mls/hr IV Q12H [facility] Last Infusion: 12/16/21 01:27 Dose: Infused Documented by: Lactulose (Lactulose Oral Liq 20 Gm/30 Ml Udc) 20 gm PO Q6H PRN PRN Reason: Constipation (Use 3rd) Latanoprost (Latanoprost 0.005% Op Soln 2.5 Ml Btl) 1 drop EYE-BOTH DAILY [facility] Last Admin: 12/16/21 09:03 Dose: 1 drop Documented by: Levothyroxine Sodium (Levothyroxine 50 Mcg Tablet) 50 mcg PO DAILY [facility] Last Admin: 12/16/21 08:53 Dose: 50 mcg Documented by: Lisinopril (Lisinopril 20 Mg Tablet) 40 mg PO DAILY [facility] Last Admin: 12/16/21 08:52 Dose: 40 mg Documented by: Magnesium Hydroxide (Magnesium Hydroxide 30 Ml Udc) 45 ml PO DAILY PRN PRN Reason: Constipation (use 4th) Ondansetron HCl (Ondansetron 2 Mg/Ml Sdv 2 Ml) 4 mg IVP Q6H PRN PRN Reason: NAUSEA AND VOMITING Pantoprazole Sodium (Pantoprazole 40 Mg Sdv) 40 mg IVP DAILY [facility] Last Admin: 12/16/21 09:02 Dose: Not Given Documented by: Pantoprazole Sodium (Pantoprazole Dr 40 Mg Tablet) 40 mg PO DAILY [facility] Last Admin: 12/16/21 08:53 Dose: 40 mg Documented by: Promethazine HCl (Promethazine 25 Mg Supp) 25 mg [place] Q6H PRN PRN Reason: NAUSEA AND VOMITING Senna/Docusate Sodium (Sennosides-Docusate Tablet) 1 tab PO BID [facility] Last Admin: 12/16/21 08:52 Dose: 1 tab Documented by: Tramadol HCl (Tramadol 50 Mg Tablet) 50 mg PO Q4H PRN PRN Reason: MODERATE PAIN Last Admin: 12/15/21 17:30 Dose: 50 mg Documented by: Vitals/I&O/Wt Last Vital Signs Temp 98.5 F 12/16/21 07:35 Pulse 97 12/16/21 08:02 Resp 16 12/16/21 08:02 BP 147/99 12/16/21 07:35 Pulse Ox 96 12/16/21 08:02 12/15/21 12/16/21 12/16/21 22:59 06:59 14:59 Intake Total 1330 / 2780 250 / 3030 Output Total 1400 / 1400 680 / 2080 Balance -70 / 1380 -430 / 950 Weight last 48 hrs Weight 199 lb 8 oz Weight 199 lb 1.6 oz Physical Exam Narrative: GENERAL: The patient is alert and oriented times three. Not in any acute distress. [] HEENT: No significant pallor, icterus or lymphadenopathy.Oral cavity: There are no mucous membrane lesions. NECK: Trachea appears to be central. No masses noted. No JVD or thyromegaly appreciated. RESPIRATORY: Chest is symmetrical. No intercostals muscle retraction or any accessory muscle activation. There is no chest wall tenderness. Breath sounds are heard bilaterally. No rales or rhonchi heard. No evidence of any consolidation. Pacemaker site has a small to medium size hematoma which is resolving. No bleeding. BREASTS: Deferred. [] HEART: The heart sounds are normal. No S3 or S4. [No significant murmurs] []. No pericardial rub ABDOMEN: No vessel pulsations or distention. No tenderness. No organomegaly appreciated. Bowel sounds are normally heard. [] : Deferred. [] RECTAL: Deferred. [] LYMPHATIC: No lymphadenopathy noted in the neck. EXTREMITIES: No edema or cyanosis. No clubbing. MUSCULOSKELETAL: No acute joint deformities or swelling SKIN: There are no significant rashes or ecchymosis NEUROPSYCHIATRIC: The patient is alert and oriented x3. Appears to be in a good mood. No tremors or rigidity noted. [] Data : 12/16/21 03:24 12/16/21 03:24 Other Labs: Laboratory Last Values WBC 6.6 10^3/uL (4.0-10.0) 12/16/21 03:24 RBC 4.79 10^6/uL (4.1-5.3) 12/16/21 03:24 Hgb 11.7 g/dL (11.5-15.3) 12/16/21 03:24 Hct 35.4 % (37.0-47.0) L 12/16/21 03:24 MCV 73.9 fl (81-99) L D 12/16/21 03:24 MCH 24.4 pg (28.0-34.0) L 12/16/21 03:24 MCHC 33.1 g/dL (30.0-36.0) D 12/16/21 03:24 RDW 16.9 % (12.1-15.1) H 12/16/21 03:24 Plt Count 167 10^3/cmm (130-400) 12/16/21 03:24 MPV 11.3 fL (7.4-10.4) H 12/16/21 03:24 Neut % (Auto) 51.7 % 12/16/21 03:24 Lymph % (Auto) 29.9 % 12/16/21 03:24 [place] % (Auto) 11.1 % 12/16/21 03:24 Eos % (Auto) 5.9 % 12/16/21 03:24 Baso % (Auto) 0.9 % 12/16/21 03:24 Neut # (Auto) 3.40 10^3/uL (1.8-7.7) 12/16/21 03:24 Lymph # (Auto) 2.0 10^3/uL (0.8-4.8) 12/16/21 03:24 [place] # (Auto) 0.7 10^3/uL (0.2-0.9) 12/16/21 03:24 Eos # (Auto) 0.4 10^3/uL (0.0-0.8) 12/16/21 03:24 Baso # (Auto) 0.1 10^3/uL (0.0-0.1) 12/16/21 03:24 Nucleated RBC % (auto) 0 % 12/16/21 03:24 Nucleated RBCs # 0.0 /100WBC 12/16/21 03:24 Sodium 136 mmol/L (136-145) 12/16/21 03:24 Potassium 4.2 mmol/L (3.5-5.1) 12/16/21 03:24 Chloride 105 mmol/L (98-107) 12/16/21 03:24 Carbon Dioxide 19 mmol/L (22-29) L 12/16/21 03:24 Anion Gap 16.2 (5-19) 12/16/21 03:24 BUN 21 mg/dL (8-23) 12/16/21 03:24 Creatinine 0.9 mg/dL (0.5-0.9) 12/16/21 03:24 GFR Calculation 62.5 mL/min (90-130) L 12/16/21 03:24 Glucose 90 mg/dL (65-115) 12/16/21 03:24 POC Glucose 109 mg/dL (70-110) 12/12/21 14:55 Calculated Osmolality 285 mOsm/kg (285-295) 12/16/21 03:24 Calcium 8.9 mg/dL (8.5-10.5) 12/16/21 03:24 Magnesium 1.8 mg/dL (1.7-2.3) 12/15/21 00:20 Troponin T Baseline 16 ng/L (0-10) H 12/09/21 13:35 Troponin T 120 Minute 13.24 ng/L (0-10) H 12/09/21 15:18 Delta Troponin T -2.76 ABS# (0-10) L 12/09/21 15:18 Troponin T Hi Sens 6Hr 13.14 ng/L (0-10) H 12/09/21 19:55 Troponin T Hi Sens 6Hr Delta -2.86 ng/L (0-12) L 12/09/21 19:55 Vancomycin Trough 20.7 ug/mL (10-15) H 12/16/21 10:07 Urine Opiates Screen Negative ng/mL (Negative) 12/09/21 21:30 Ur Barbiturates Screen Negative ng/mL (Negative) 12/09/21 21:30 Ur Phencyclidine Scrn Negative ng/mL (Negative) 12/09/21 21:30 Ur Amphetamines Screen Negative ng/mL (Negative) 12/09/21 21:30 U Benzodiazepines Scrn Negative ng/mL (Negative) 12/09/21 21:30 Urine Cocaine Screen Negative ng/mL (Negative) 12/09/21 21:30 U Marijuana (THC) Screen Negative ng/mL (Negative) 12/09/21 21:30 Blood Type A Positive 12/13/21 06:35 Rho(D) Type Positive 12/13/21 06:35 Antibody Screen Negative 12/13/21 06:35 A&P Assessment and plan (1) Status post cardiac pacemaker procedure: Patient has a small to medium size hematoma which is resolving. Clinically seem s to be stable Status: Acute (2) Atrial fibrillation with rapid ventricular response: Ventricular rate seems to be under control. Still has intermittent atrial fibrillation Status: Acute (3) Daytime somnolence: Status: Acute (4) Essential hypertension: Blood pressure seems to be getting under control. Status: Acute Plan If the patient continues remain stable, may be discharged home today May continue on the flecainide, in addition to the current medications. May be started on Bactrim DS 1 tablet p.o. twice daily for 5 days Appointment to see the nurse practitioner at [facility] next week for a wound check and pacemaker check Appointment with me in the office as scheduled Discussed with Dr. 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
--- NOTE | 2021-12-16 09:24 | PM.MISC ---
Miscellaneous Note Purpose of Documentation: Progress note, from 12/15/2021 Note: 12/15/2021 This patient apparently had episodes of tachycardia or bradyarrhythmias over the weekend. She had a permanent pacemaker implantation by Dr. Flynn. Currently she seems to be doing okay. She is complaining of some pain and swelling at the pacemaker insertion site. She also was having episodes of atrial fibrillation with rapid ventricular rate on the monitor. On examination GENERAL: The patient is alert and oriented times three. Not in any acute distress. HEENT: No significant pallor, icterus or lymphadenopathy.Oral cavity: There are no mucous membrane lesions. NECK: Trachea appears to be central. No masses noted. No JVD or thyromegaly appreciated. RESPIRATORY: Chest is symmetrical. No intercostals muscle retraction or any accessory muscle activation. There is a small to moderate sized hematoma at the pacemaker insertion site. Moderate tenderness. BREASTS: Deferred. HEART: The first heart sound is variable. Second heart sound is normal. No S3 or S4. No significant murmurs. No pericardial rub ABDOMEN: No vessel pulsations or distention. No tenderness. No organomegaly appreciated. Bowel sounds are normally heard. : Deferred. RECTAL: Deferred. LYMPHATIC: No lymphadenopathy noted in the neck. EXTREMITIES: No edema or cyanosis. No clubbing. MUSCULOSKELETAL: No acute joint deformities or swelling SKIN: There are no significant rashes or ecchymosis NEUROPSYCHIATRIC: The patient is alert and oriented x3. Appears to be in a good mood. No tremors or rigidity noted. Assessment 1. Status post permanent trace pacer implantation Patient has a small to moderate hematoma at the insertion site. We will give a pressure dressing. Hold off on the Eliquis this morning. We will be closely watching the pacemaker site. 2. Atrial fibrillation with rapid ventricular rate. Since she was responding to the flecainide, I may go ahead and start her on flecainide 100 mg p.o. twice daily. Continue other medications as it is. We will be closely monitoring the vitals 3. Essential benign hypertension : currently the blood pressure is in the normal range. We will be closely monitoring the blood pressure. Other problems are as outlined before. Plan: Closely monitor the telemetry. Flecainide 100 mg twice daily Hold off on the Eliquis for the time being Pressure dressing of the pacemaker site Based on the clinical progress, further recommendations will be made Possible discharge home tomorrow
[2021-12-16] MEDS: vancomycin 1,000 MG in sodium chloride 0.9% 250 ML 250 MG IV (11:43)
[2021-12-16 11:56] LABS: Vancomycin Trough 20.7 ug/mL (10-15)
--- NOTE | 2021-12-16 13:53 | PM.DCS ---
Discharge Providers Date of Admission: 12/11/21 15:00 Date of Discharge: December 16, 2021 Attending Provider at Admission: Domi Child MD Attending Provider at Discharge: Adelaida Thakkar MD Consults: Dr. Phipps with cardiology and With cardiothoracic surgery Primary Care Provider: Mega Martinez MD Diagnoses at Discharge Discharge Diagnosis (1) Atrial fibrillation with rapid ventricular response: Status: Acute (2) Tachy-negin syndrome: Status: Acute (3) Status post cardiac pacemaker procedure: Status: Acute (4) Sinus node dysfunction: Status: Acute (5) Mild diastolic dysfunction: Status: Acute (6) Mild concentric left ventricular hypertrophy (LVH): Status: Acute (7) Obstructive sleep apnea: Status: Acute (8) Hypothyroidism: Status: Acute Qualifiers: Hypothyroidism type: acquired Qualified Code(s): E03.9 - Hypothyroidism, unspecified (9) Essential hypertension: Status: Acute (10) PVD (peripheral vascular disease): Status: Acute Reason for Visit Reason for Visit: Weak, arm pain, chest pain Brief History: From H&P: Kaity Ferro is a 66 year old female with past medical history of atrial fibrillation with RVR who has had a recent admission for the same presented to the ER today with palpitations.? She said that she got dizzy when she was at the laundromat.? She says that she believes she overdid it.? She has been wearing a Holter monitor from discharge last time but says she took it off 5 days ago.? She says she was not sure if she had to put it back on.? She also states that she wore 1 last year where the battery and apparently she took it off and did not wear it continuously either.? She brought the box with her today and is wanting us to teach her how to use it again.? She says she may have used up all the batteries and is unsure what to do at this point.? Patient does have a history of having bradycardia and sinus pauses and is extremely sensitive to AV david blocking agents therefore has not been placed on high doses in the past.? Last time she was discharged with event monitor and Coreg and lowest dose of long-acting Cardizem at time of discharge.? She was post to follow-up with Dr. Phipps outpatient.? Today she presented with A. fib with RVR heart rate 1 40-1 50.? Initially she was given medications in the ER and because she was still uncontrolled she was placed on Cardizem drip.? Decision made to admit her.? ER physician also spoke to Dr. Phipps who recommended admission at this time. Hospital Course Hospital Course Patient was admitted to a medical bed with telemetry monitoring. Her atrial fibrillation was difficult to control and with increasing meds she had bradycardia. Ultimately decision was made to proceed with pacemaker placement. Pacemaker was placed by Dr. Flynn on December 13. Dual-chamber Medtronic pacemaker with details as noted below: Right ventricular lead is 58 cm and model 5076.? Serial number [id number] Right atrial lead is 52 cm and is model 5076.? Serial number [id number]. Ventricular lead had sensing of 6.1mV with an impedance of 646 ohms.? Threshold was 0.5 V Atrial lead had sensing of 2.3 mV with an impedance of 475 ohms.? Threshold was 0.75 V. Medtronic generator:? Model #? W1DR01? Serial #[id number] Patient had been on Eliquis which was held for procedure. She had some small hematoma near the site of pacemaker placement postprocedure but this did not expand further after compression dressing was placed and pain associated with the site was also improved. In terms of her rhythm control she will be on flecainide twice a day, short acting diltiazem currently at 30 mg 3 times a day rather than long-acting Cardizem and will continue on beta-ganesh with carvedilol 25 twice daily. Eliquis has been resumed. She will be on Bactrim x5 days. Amlodipine has been discontinued. She [facility] as described. She received instruction on limiting use of arm postprocedure and had shoulder splint in place to facilitate. Patient was awake and alert, oriented. She was able to explain general management of pacemaker. Her lungs were clear. Regular rhythm and pacemaker site was a little edematous had line drying without any extension of erythema and pain was not near as what had been described. Patient asked that we return the event monitor she had had previously given to her and arrangements were made for this per nursing staff. Discharge Data Studies Completed and Pending Completed Studies During Hospitalization Category Date Time Status XR chest 1V portable [id number] Routine Exams 12/11/21 12:48 Completed XR chest 1V portable [id number] Stat Exams 12/09/21 12:03 Completed Pending at discharge Category Date Time Status Sputum Culture and Gram Stain Stat Lab 12/09/21 18:15 Uncollected Radiology Impressions Chest X-Ray 12/11/21 12:48 Impression: Atherosclerosis and cardiomegaly. C-Arm Fluoroscopy 12/13/21 09:15 IMPRESSION: Intraoperative imaging during cardiac pacemaker insertion. Laboratory Results WBC 6.6 10^3/uL (4.0-10.0) 12/16/21 03:24 RBC 4.79 10^6/uL (4.1-5.3) 12/16/21 03:24 Hgb 11.7 g/dL (11.5-15.3) 12/16/21 03:24 Hct 35.4 % (37.0-47.0) L 12/16/21 03:24 MCV 73.9 fl (81-99) L D 12/16/21 03:24 MCH 24.4 pg (28.0-34.0) L 12/16/21 03:24 MCHC 33.1 g/dL (30.0-36.0) D 12/16/21 03:24 RDW 16.9 % (12.1-15.1) H 12/16/21 03:24 Plt Count 167 10^3/cmm (130-400) 12/16/21 03:24 MPV 11.3 fL (7.4-10.4) H 12/16/21 03:24 Neut % (Auto) 51.7 % 12/16/21 03:24 Lymph % (Auto) 29.9 % 12/16/21 03:24 [place] % (Auto) 11.1 % 12/16/21 03:24 Eos % (Auto) 5.9 % 12/16/21 03:24 Baso % (Auto) 0.9 % 12/16/21 03:24 Neut # (Auto) 3.40 10^3/uL (1.8-7.7) 12/16/21 03:24 Lymph # (Auto) 2.0 10^3/uL (0.8-4.8) 12/16/21 03:24 [place] # (Auto) 0.7 10^3/uL (0.2-0.9) 12/16/21 03:24 Eos # (Auto) 0.4 10^3/uL (0.0-0.8) 12/16/21 03:24 Baso # (Auto) 0.1 10^3/uL (0.0-0.1) 12/16/21 03:24 Nucleated RBC % (auto) 0 % 12/16/21 03:24 Nucleated RBCs # 0.0 /100WBC 12/16/21 03:24 Sodium 136 mmol/L (136-145) 12/16/21 03:24 Potassium 4.2 mmol/L (3.5-5.1) 12/16/21 03:24 Chloride 105 mmol/L (98-107) 12/16/21 03:24 Carbon Dioxide 19 mmol/L (22-29) L 12/16/21 03:24 Anion Gap 16.2 (5-19) 12/16/21 03:24 BUN 21 mg/dL (8-23) 12/16/21 03:24 Creatinine 0.9 mg/dL (0.5-0.9) 12/16/21 03:24 GFR Calculation 62.5 mL/min (90-130) L 12/16/21 03:24 Glucose 90 mg/dL (65-115) 12/16/21 03:24 POC Glucose 109 mg/dL (70-110) 12/12/21 14:55 Calculated Osmolality 285 mOsm/kg (285-295) 12/16/21 03:24 Calcium 8.9 mg/dL (8.5-10.5) 12/16/21 03:24 Magnesium 1.8 mg/dL (1.7-2.3) 12/15/21 00:20 Troponin T Baseline 16 ng/L (0-10) H 12/09/21 13:35 Troponin T 120 Minute 13.24 ng/L (0-10) H 12/09/21 15:18 Delta Troponin T -2.76 ABS# (0-10) L 12/09/21 15:18 Troponin T Hi Sens 6Hr 13.14 ng/L (0-10) H 12/09/21 19:55 Troponin T Hi Sens 6Hr Delta -2.86 ng/L (0-12) L 12/09/21 19:55 Vancomycin Trough 20.7 ug/mL (10-15) H 12/16/21 10:07 Urine Opiates Screen Negative ng/mL (Negative) 12/09/21 21:30 Ur Barbiturates Screen Negative ng/mL (Negative) 12/09/21 21:30 Ur Phencyclidine Scrn Negative ng/mL (Negative) 12/09/21 21:30 Ur Amphetamines Screen Negative ng/mL (Negative) 12/09/21 21:30 U Benzodiazepines Scrn Negative ng/mL (Negative) 12/09/21 21:30 Urine Cocaine Screen Negative ng/mL (Negative) 12/09/21 21:30 U Marijuana (THC) Screen Negative ng/mL (Negative) 12/09/21 21:30 Blood Type A Positive 12/13/21 06:35 Rho(D) Type Positive 12/13/21 06:35 Antibody Screen Negative 12/13/21 06:35 Vitals Last Vital Signs Temp 98.5 F 12/16/21 11:34 Pulse 95 12/16/21 11:34 Resp 19 H 12/16/21 11:34 BP 98/79 12/16/21 11:34 Pulse Ox 94 12/16/21 11:34 Discharge Plan Discharge Patient Disposition: Home Condition: Stable Prescriptions: New flecainide 100 mg Tablet 100 mg PO 0900,2100 Qty: 60 0RF diltiazem HCl 30 mg Tablet 30 mg PO Q8H Qty: 90 0RF Bactrim DS 800-160 mg tablet 1 tab PO BID 5 Days Qty: 10 0RF Continued carvedilol 25 mg tablet 25 mg PO BID 0RF Eliquis 5 mg tablet 5 mg PO BID 0RF levothyroxine 50 mcg capsule 50 mcg PO DAILY 0RF hydrocodone-acetaminophen 5-325 mg tablet 1 tab PO BID PRN (Reason: Pain) 0RF furosemide 20 mg tablet 20 mg PO DAILY PRN (Reason: Edema) 0RF latanoprost 0.005 % drops 1 drop ophthalmic (eye) DAILY 0RF Rx Instructions: both eyes dorzolamide 2 % drops 1 drp ophthalmic (eye) TID 0RF Rx Instructions: both eyes brimonidine 0.2 % drops 1 drp ophthalmic (eye) BID 0RF Rx Instructions: both eyes albuterol sulfate 90 mcg/actuation HFA aerosol inhaler 1 - 2 puff INHALATION Q4H PRN (Reason: Shortness Of Breath) 0RF lisinopril 40 mg tablet 40 mg PO DAILY 0RF hydralazine 100 mg tablet 100 mg PO TID Qty: 90 3RF Discontinued amlodipine 2.5 mg tablet 2.5 mg PO DAILY 0RF Cardizem LA 120 mg tablet extended release 24 hr 120 mg PO DAILY Qty: 30 3RF Discharge Orders: Discharge Order (Routine); Ordered 12/16/21 Ordered By: Adelaida Thakkar Referrals: Ida Phipps MD [Physician] - 01/12/22 3:15 pm Cata Okeefe FNP [Nurse Practitioner] - 12/21/21 10:45 am (follow up post PPM, Dr Phipps and Thom) Mega Martinez MD [Primary Care Provider] - 12/21/21 10:00 am Discharge Diet: Usual diet Discharge Activity: Limit activity as instructed Patient Instructions: Sulfamethoxazole/Trimethoprim (By mouth), Diltiazem (By mouth), Flecainide (By mouth) (Tambocor), A-fib (Atrial Fibrillation) (DC), Pacemaker (DC), Opioid Safety, Post Pacemaker - Moise Activity Restrictions/Additional Instructions: See instructions on post pace maker sheet regarding activity, showering, wound management Resume eliquis this evening Take antibtiotic for 5 days as instructed (stop if rash or other side effect develops and call cardiology office) Event monitor previously prescribed will be taken [facility] by floor nurses Discharge Attestations Time Spent in Discharge Care*: greater than 30 min Specific Discharge Activities: educating patient, discussing with pcp/other providers, discussing with showcase trimmer/social workers/dc planners, documenting/other paperwork and evaluating patient/reviewing data Quality Metrics Clinical Quality Measures [ No reported AMI, CVA or VTE this stay] Coding Level of Care Code Acute Chg FW DC note Diagnoses Status post cardiac pacemaker procedure Z95.0 Atrial fibrillation with rapid ventricular response I48.91 Essential hypertension I10 Tachy-negin syndrome I49.5 Sinus node dysfunction I49.5 Obstructive sleep apnea G47.33 Hypothyroidism E03.9 Hypothyroidism type: acquired Mild diastolic dysfunction I51.9 Mild concentric left ventricular hypertrophy (LVH) I51.7 PVD (peripheral vascular disease) I73.9
--- NOTE | 2021-12-16 15:40 | PC.SOCIAL ---
IMM UPDATED IMM dated and initialed and copy given to patient
== END 2021-12-16 15:30 | disposition home or self-care (01) | DRG 243 ==
LOC: ER 13:56 → ICU 16:33 → MEDSURG 12-14 17:47
PROVIDERS: Thoracic Surgery (Cardiothoracic Vascular Surgery); Admitting Provider Internal Medicine; Emergency Provider Emergency Medicine; PCP Family Medicine; Visit Provider Hospitalist
PROC: 0JH606Z Insertion of Pacemaker, Dual Chamber into Chest Subcutaneous Tissue and Fascia, Open Approach (ICD-10-PCS; principal; 2021-12-13 09:15)
DX: I48.20 Chronic atrial fibrillation, unspecified (principal); I50.32 Chronic diastolic (congestive) heart failure; N17.9 Acute kidney failure, unspecified; L76.32 Postprocedural hematoma of skin and subcutaneous tissue following other procedure; I49.5 Sick sinus syndrome; T50.1X5A Adverse effect of loop [high-ceiling] diuretics, initial encounter; Y83.8 Other surgical procedures as the cause of abnormal reaction of the patient, or of later complication, without mention of misadventure at the time of the procedure; I11.0 Hypertensive heart disease with heart failure; E03.9 Hypothyroidism, unspecified; G47.33 Obstructive sleep apnea (adult) (pediatric); I73.9 Peripheral vascular disease, unspecified; F17.200 Nicotine dependence, unspecified, uncomplicated; R07.89 Other chest pain; K21.9 Gastro-esophageal reflux disease without esophagitis; Z79.01 Long term (current) use of anticoagulants; Z82.49 Family history of ischemic heart disease and other diseases of the circulatory system; Z85.09 Personal history of malignant neoplasm of other digestive organs; Z85.841 Personal history of malignant neoplasm of brain
CPT/HCPCS: 36415; 36416; 71045; 76000; 77001; 80048; 80202; 80306; 82962; 83735; 84484; 85025; 86850; 86900; 93005; 94640; 94664; 96365; 96375; 97165; 99285; C1779; C1786; C1898; C9113; G0378; J0456; J1200; J1940; J2270; J2370; J2405; J2704; J3010; J3370; J3475; J3490; J7030; J7040; J7050; Q0144

== ENCOUNTER → 2021-12-21 10:58 | Outpatient (BNVA) | payer MEDICARE, SELFPAY | PROVIDERS: PCP Family Medicine; Visit Provider Nurse Practitioner Family | DX: I48.20 Chronic atrial fibrillation, unspecified (principal); I10 Essential (primary) hypertension; Z95.0 Presence of cardiac pacemaker; F17.200 Nicotine dependence, unspecified, uncomplicated; Z79.01 Long term (current) use of anticoagulants | CPT/HCPCS: 99214 ==

== ENCOUNTER → 2022-01-22 10:47 | Outpatient (BNVA) | payer MEDICARE, SELFPAY | PROVIDERS: PCP Family Medicine; Visit Provider Internal Medicine Cardiovascular Disease | DX: Z45.010 Encounter for checking and testing of cardiac pacemaker pulse generator [battery] (principal) | CPT/HCPCS: 93280 ==

== ENCOUNTER → 2022-02-16 09:41 | Outpatient (BNVA) | payer MEDICARE, SELFPAY | PROVIDERS: PCP Family Medicine; Visit Provider Podiatrist Foot & Ankle Surgery | DX: I73.9 Peripheral vascular disease, unspecified (principal); L60.3 Nail dystrophy | CPT/HCPCS: 99213; 99214 ==

== ENCOUNTER 2022-08-09 09:59 | Outpatient (CLI) | payer MEDICARE, SELFPAY ==
--- NOTE | 2022-08-09 10:11 | CT_ITS ---
WS: [id number] LDCT LUNG CANCER SCREENING TECHNIQUE: Noncontrast CT of the chest with coronal and sagittal reformatted images. CLINICAL INFORMATION: HISTORY OF TOBACCO USE COMPARISON: CT chest July 16, 2021 DLP: 76.89 mGy.cm DIvol: Mean CTDIvol: 1.60 (mGy) All CT scans at [facility] use at least one of these dose optimization techniques: automat ed exposure control; mA and/or kV adjustment per patient size (includes targeted exams where dose is matched to clinical indication); or iterative reconstruction. FINDINGS: Subpleural nodularity RIGHT lower lobe unchanged the largest measuring 12 mm. 3 mm noncalcified nodul e RIGHT upper lobe. Small nodule along the RIGHT fissure. Ectatic ascending thoracic aorta is unchanged measuring 4.3 CCM. Aortic calcification. Coronary calci fication. Numerous anterior mediastinal and peribronchial lymph nodes with calcification no axillary lymphadenopathy. Adrenal glands are normal. Cholecystectomy clips. Normal GE junction. Cardiac pacer. Hypertrophic paty nges thoracic spine. CT/CT lung screening [id number] IMPRESSION: LUNG-RADS: 2-Benign Appearance or Behavior FOLLOW UP: 12 Month: Continue annual screening with LDCT
== END 2022-08-09 10:00 | disposition home or self-care (01) ==
LOC: RAD 10:07
PROVIDERS: PCP Family Medicine; Visit Provider Family Medicine
DX: Z12.2 Encounter for screening for malignant neoplasm of respiratory organs (principal); Z87.891 Personal history of nicotine dependence
CPT/HCPCS: 71271

== ENCOUNTER 2022-08-09 10:54 | Outpatient (CLI) | payer MEDICARE, SELFPAY ==
--- NOTE | 2022-08-09 10:56 | MM_ITS ---
WS: [id number] BILATERAL SCREENING DIGITAL TOMOSYNTHESIS MAMMOGRAM WITH CAD HISTORY: SCREENING COMPARISON: 07/18/2020, 07/07/2011 Bilateral CC and MLO views with tomosynthesis and synthetic mammography submitted. Computer aided det ection analyzed. Breast composition: There are scattered areas of fibroglandular density. No suspicious masses, microc alcifications or architectural distortion. Benign calcification RIGHT breast. MM/[id number] IMPRESSION: BI-RADS: 2-Benign FOLLOW UP: 1 Year Follow-up
== END 2022-08-09 10:55 | disposition home or self-care (01) ==
LOC: RAD 10:54
PROVIDERS: PCP Family Medicine; Visit Provider Family Medicine
DX: Z12.31 Encounter for screening mammogram for malignant neoplasm of breast (principal)
CPT/HCPCS: 77063; 77067

== ENCOUNTER → 2023-01-14 09:18 | Outpatient (BNVA) | payer MEDICARE, SELFPAY | PROVIDERS: PCP Family Medicine; Visit Provider Internal Medicine Cardiovascular Disease | DX: I48.20 Chronic atrial fibrillation, unspecified (principal); I11.9 Hypertensive heart disease without heart failure; Z79.01 Long term (current) use of anticoagulants; I73.9 Peripheral vascular disease, unspecified; G47.33 Obstructive sleep apnea (adult) (pediatric); Z95.0 Presence of cardiac pacemaker; F17.200 Nicotine dependence, unspecified, uncomplicated | CPT/HCPCS: 99214 ==

== ENCOUNTER 2023-05-27 13:20 | Emergency (ER) | payer MEDICARE, SELFPAY ==
[2023-05-27 13:29] VITALS: BP 164/101; PULSE 86; RESP 16; TEMP 37.1; O2SAT 95; BMI 25.8
[2023-05-27 15:12] LABS: Basophils # 0.1 10^3/uL (0.0-0.1); Basophils % 1.1 %; Eosinophils # 0.1 10^3/uL (0.0-0.8); Eosinophils % 1.4 %; Hematocrit 39.7 % (36-47); Lymphocytes # 1.4 10^3/uL (0.8-4.8); Lymphocytes % 21.6 %; Mean Corpuscular HGB Conc 31.2 g/dL (30-55); Mean Corpuscular Hemoglobin 24.6 pg (27-33); Mean Corpuscular Volume 78.8 fl (85-98); Mean Platelet Volume 10.8 fL (7.4-10.4); Monocytes # 0.7 10^3/uL (0.2-0.9); Monocytes % 10.1 %; Neutrophils # 4.22 10^3/uL (1.8-7.7); Neutrophils % 65.3 %; Nucleated Red Blood Cells % 0 %; Platelet Count 214 10^3/cmm (157-399); Red Blood Count 5.04 10^6/uL (3.85-5.65); Red Cell Distribution Width 15.9 % (12.1-15.1); White Blood Count 6.45 10^3/uL (3.29-11.43)
[2023-05-27 15:32] LABS: Alanine Aminotransferase 9 U/L (0-33); Albumin Level 4.1 g/dL (3.5-5.2); Alkaline Phosphatase 90 U/L (35-105); Anion Gap 17.2 (5-19); Aspartate Amino Transferase 14 U/L (0-32); Blood Urea Nitrogen 26 mg/dL (8-23); Calcium 9.8 mg/dL (8.5-10.5); Carbon Dioxide 21 mmol/L (22-29); Chloride 105 mmol/L (98-107); Globulin 3.4 g/dL (1.3-4.6); Glomerular Filtration Rate 44.7 mL/min (90-130); Glucose 100 mg/dL (65-115); Osmolality Calculated 293 mOsm/kg (285-295); Potassium 4.2 mmol/L (3.5-5.1); Sodium 139 mmol/L (136-145); Total Bilirubin 0.2 mg/dL (0.15-1.2); Total Protein 7.5 g/dL (6.6-8.7)
[2023-05-27 17:31] VITALS: BP 165/108; O2SAT 94
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
--- NOTE | 2023-05-27 18:13 | ECG_ITS ---
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 Measurements Intervals Warriors Mark Rate: 68 P: 54 IN: 175 QRS: 41 QRSD: 98 T: 238 QT: 453 QTc: 484 Interpretive Statements SINUS RHYTHM LEFT VENTRICULAR HYPERTROPHY AND ST-T CHANGE [VOLTAGE CRITERIA PLUS ST/T ABNORMALITY] Compared to ECG 12/13/2021 02:23:14 Left ventricular hypertrophy now present ST (T wave) deviation now present Atrial fibrillation no longer present Right-axis deviation no longer present Intraventricular conduction delay no longer present T-wave abnormality no longer present Possible ischemia no longer present Electronically Signed On 05-27-2023 19:30:18 PATIENT NAVIGATOR by Ida Phipps M.D. [id number]
[2023-05-27 18:28] LABS: Troponin(5th) Baseline 21 ng/L (0-10)
[2023-05-27 18:41] LABS: Troponin 5 2HR 18.54 ng/L (0-10)
[2023-05-27 18:42] LABS: Troponin 5 2HR Delta -2.46 ABS# (0-10)
[2023-05-27] MEDS: FUROsemide 20 mg Tablet PO (19:24)
[2023-05-27 19:35] VITALS: BP 149/88; O2SAT 98
== END 2023-05-27 19:42 | disposition home or self-care (01) ==
PROVIDERS: Physician Assistant; Emergency Provider Physician Assistant; PCP Family Medicine
DX: I10 Essential (primary) hypertension (principal); Z79.01 Long term (current) use of anticoagulants; Z72.0 Tobacco use
CPT/HCPCS: 36415; 80053; 84484; 85025; 93005; 99284

== ENCOUNTER 2023-08-19 11:31 | Outpatient (CLI) | payer MEDICARE, SELFPAY ==
--- NOTE | 2023-08-19 11:32 | MM_ITS ---
WS: [id number] BILATERAL SCREENING DIGITAL TOMOSYNTHESIS MAMMOGRAM WITH CAD HISTORY: SCREENING COMPARISON: 08/09/2022 and 07/18/2020 Bilateral CC and MLO views with tomosynthesis and synthetic mammography submitted. Computer aided det ection analyzed. Breast composition: There are scattered areas of fibroglandular density. No suspicious masses, microc alcifications or architectural distortion. Benign calcification in the anterior RIGHT breast. IMPRESSION: MM/[id number] BI-RADS: 2-Benign FOLLOW UP: 1 Year Follow-up
== END 2023-08-19 11:32 | disposition home or self-care (01) ==
LOC: RAD 11:31
PROVIDERS: PCP Family Medicine; Visit Provider Family Medicine
DX: Z12.31 Encounter for screening mammogram for malignant neoplasm of breast (principal)
CPT/HCPCS: 77063; 77067

== ENCOUNTER 2023-10-14 14:14 | Outpatient (CLI) | payer MEDICARE, SELFPAY ==
--- NOTE | 2023-10-14 14:18 | CT_ITS ---
WS: [id number] CT HEAD TECHNIQUE: Noncontrast and contrast-enhanced CT of the head. CLINICAL INFORMATION: PITUITARY TUMOR SUPRASELLAR REGION COMPARISON: MRI 12/03/2019 multiple prior MRIs reviewed dating back to 2013. DLP: 2195.[address] scans at [facility] use at least one of these dose optimization techniques: automated e xposure control; mA and/or kV adjustment per patient size (includes targeted exams where dose is matc hed to clinical indication); or iterative reconstruction. FINDINGS: No evidence intracranial hemorrhage or mass effect. Ventricular system and basilar cisterns are paten t. Moderate small vessel changes. Moderate parenchymal volume loss. Intracranial vascular calcificati on. Again seen is the fat-containing lesion with calcifications along the RIGHT aspect of the hypothalamu s unchanged since the prior MRI most compatible with dermoid or lipoma. This measures approximately 5 .8 x 7.5 x 6.5 mm. No hydrocephalus. Mastoid air cells are well aerated. Paranasal sinuses are well aerated. CT/CT head wo/w con [id number] IMPRESSION: 1. Stable fat-containing lesion with calcifications along the RIGHT aspect of the hypothalamus unchanged as the prior MRI measuring 5.8 x 7.5 x 6.5 mm. 2. 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 3. No other acute findings.
[2023-10-14 15:39] LABS: Blood Urea Nitrogen 24 mg/dL (8-23)
[2023-10-14] MEDS: iohexol 350 mg/mL 100 mL Btl IV (15:49)
== END 2023-10-14 14:15 | disposition home or self-care (01) ==
LOC: RAD 14:14
PROVIDERS: PCP Family Medicine; Visit Provider Family Medicine
DX: D49.7 Neoplasm of unspecified behavior of endocrine glands and other parts of nervous system (principal); G31.89 Other specified degenerative diseases of nervous system; I67.82 Cerebral ischemia
CPT/HCPCS: 70470; 82565; 84520; Q9967

== ENCOUNTER → 2024-01-31 13:58 | Outpatient (BNVA) | payer MEDICARE, SELFPAY | PROVIDERS: PCP Family Medicine; Visit Provider Internal Medicine | DX: I48.20 Chronic atrial fibrillation, unspecified (principal); R01.1 Cardiac murmur, unspecified; Z79.01 Long term (current) use of anticoagulants; I73.9 Peripheral vascular disease, unspecified; G47.33 Obstructive sleep apnea (adult) (pediatric); Z95.0 Presence of cardiac pacemaker; I11.9 Hypertensive heart disease without heart failure; F17.210 Nicotine dependence, cigarettes, uncomplicated | CPT/HCPCS: 99214 ==

== ENCOUNTER 2024-03-14 10:28 | Emergency (ER) | payer MEDICARE, SELFPAY ==
--- NOTE | 2024-03-14 10:34 | ECG_ITS ---
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1955 Requested By: Sonam Dyer Order Number: [id number] Kayleigh MD: JAIME GASTON Measurements Intervals [place] Rate: 83 P: 62 NC: 158 QRS: 44 QRSD: 99 T: 236 QT: 391 QTc: 460 Interpretive Statements SINUS RHYTHM POSSIBLE LEFT ATRIAL ENLARGEMENT [-0.1mV P-WAVE IN V1/V2] POSSIBLE RIGHT VENTRICULAR CONDUCTION DELAY [RSR (QR) IN V1/V2] LEFT VENTRICULAR HYPERTROPHY AND ST-T CHANGE [VOLTAGE CRITERIA PLUS ST/T ABNORMALITY] POSSIBLE SEPTAL MYOCARDIAL INFARCTION , PROBABLY OLD [30 ms Q WAVE IN V1/V2] Compared to ECG 05/27/2023 18:13:10 Myocardial infarct finding now present ST (T wave) deviation still present Electronically Signed On 03-14-2024 20:05:47 CDT by JAIME GASTON [email or web address] [email or web address]/[id number] f
--- NOTE | 2024-03-14 10:34 | XRR_ITS ---
PROCEDURE INFORMATION: Exam: XR Chest Exam date and time: 03/14/2024 11:24 AM Age: 68 years old Clinical indication: Pain; Angina pectoris; Additional info: Chest pain TECHNIQUE: Imaging protocol: Radiologic exam of the chest. Views: 1 view. COMPARISON: CT lung screening [id number] 08/09/2022 10:17 AM FINDINGS: Tubes, catheters and devices: Dual lead cardiac pacemaker with left chest generator. Lungs: Unremarkable. No consolidation. Pleural spaces: Unremarkable. No pleural effusion. No pneumothorax. Heart/Mediastinum: Unremarkable. No cardiomegaly. Vasculature: Aortic arch atherosclerotic calcification. Bones/joints: Mild degenerative changes along the spine. XR/XR chest 1V portable [id number] IMPRESSION: No acute findings.
[2024-03-14 10:41] VITALS: BP 71/44; PULSE 78; RESP 16; TEMP 36.6; O2SAT 96; BMI 26.4
[2024-03-14 10:52] LABS: Basophils # 0.1 10^3/uL (0.0-0.1); Basophils % 0.9 %; Eosinophils # 0.1 10^3/uL (0.0-0.8); Eosinophils % 1.4 %; Hematocrit 41.6 % (36-47); Lymphocytes # 1.2 10^3/uL (0.8-4.8); Lymphocytes % 20.9 %; Mean Corpuscular HGB Conc 31.3 g/dL (30-55); Mean Corpuscular Hemoglobin 23.8 pg (27-33); Mean Corpuscular Volume 76.1 fl (85-98); Mean Platelet Volume 10.8 fL (7.4-10.4); Monocytes # 0.5 10^3/uL (0.2-0.9); Monocytes % 9.6 %; Neutrophils # 3.75 10^3/uL (1.8-7.7); Neutrophils % 66.8 %; Nucleated Red Blood Cells % 0 %; Platelet Count 279 10^3/cmm (157-399); Red Blood Count 5.47 10^6/uL (3.85-5.65); Red Cell Distribution Width 17.9 % (12.1-15.1); White Blood Count 5.61 10^3/uL (3.29-11.43)
[2024-03-14] MEDS: sodium chloride 0.9% 1,000 ML 999 ML IV ×2 (11:08→11:19)
[2024-03-14] MEDS: ondansetron 2 mg/ML SDV 2 mL 8 MG IVP (11:09)
[2024-03-14 11:12] LABS: Troponin(5th) Baseline 29 ng/L (0-10)
[2024-03-14 11:20] LABS: C Reactive Protein 5.6 mg/L (0.0-4.9); Lipase 42 U/L (13-60)
[2024-03-14 11:21] LABS: Alanine Aminotransferase 13 U/L (0-33); Albumin Level 4.2 g/dL (3.5-5.2); Alkaline Phosphatase 101 U/L (35-105); Anion Gap 14.8 (5-19); Aspartate Amino Transferase 18 U/L (0-32); Blood Urea Nitrogen 17 mg/dL (8-23); Calcium 9.2 mg/dL (8.5-10.5); Carbon Dioxide 21 mmol/L (22-29); Chloride 105 mmol/L (98-107); Globulin 2.9 g/dL (1.3-4.6); Glomerular Filtration Rate 62.1 mL/min (90-130); Glucose 116 mg/dL (65-115); Osmolality Calculated 287 mOsm/kg (285-295); Potassium 3.8 mmol/L (3.5-5.1); Sodium 137 mmol/L (136-145); Total Bilirubin 0.4 mg/dL (0.15-1.2); Total Protein 7.1 g/dL (6.6-8.7)
--- NOTE | 2024-03-14 11:44 | CT_ITS ---
WS: [id number] CT ABDOMEN PELVIS TECHNIQUE: Contrast-enhanced CT of the abdomen and pelvis with coronal and sagittal reformatted image s. CLINICAL INFORMATION: Abdominal pain COMPARISON: 2019 DLP: 1150.[address] scans at [facility] use at least one of these dose optimization techniques: automated e xposure control; mA and/or kV adjustment per patient size (includes targeted exams where dose is matc hed to clinical indication); or iterative reconstruction. 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 Prior hysterectomy and appendectomy. Prior cholecys tectomy. No right-sided kidney. Hepatomegaly. Diffuse dilatation of the common bile duct similar to t he prior studies mild intrahepatic bili ductal dilatation. Chronic spondylolysis L5-S1 with grade 1 a nterolisthesis subsegmental atelectasis RIGHT lower lobe. Ovoid nodular opacity LEFT lower lobe measu ring 12 mm. Recommend follow-up chest CT. This is new from the prior lung screening CT 2022 Normal spleen. Normal GE junction. Portal vein and splenic vein are patent. Fatty atrophy of the body and tail of the pancreas. Normal caliber abdominal aorta. Celiac and SMA are patent. Lumbar curve. Umbilical hernia with herniation of a small loop of adjacent small bowel into the herni a. Recommend correlation for umbilical pain. No evidence of high-grade obstruction. This is new from the prior studies. CT/CT abdomen pelvis w con* [id number] IMPRESSION: 1. Herniation of a small loop of small bowel at the umbilicus new from the akira or studies. Recommend correlation for umbilical pain. No evidence of high-grade obstruction. 2. Prior cholecystectomy with dilatation of the common bile duct slightly prog ressed but similar in appearance to the prior studies likely physiologic. 3. 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 No hydronephrosis. 4. New 12 mm nodule in the LEFT lower lobe. Recommend follow-up chest CT. 5. Prior hysterectomy and appendectomy. 6. Chronic spondylolysis L5-S1 with grade 1 anterolisthesis.
--- NOTE | 2024-03-14 11:44 | W.ED.CHESTPA ---
HPI - Chest Pain General: Chief Complaint: Chest Pain Stated Complaint: chest pains Time Seen by Provider: 03/14/24 10:53 History of Present Illness: 68-year-old female with a history of A-fib on Eliquis, hypertension who presents emergency room with nausea and vomiting. Epigastric pain. This has been going on all night. She has been throwing up all night she says. She has had some diarrhea. No increased work of breathing. No chest pain. No altered mental status. No focal motor deficits. No known fevers. On presentation she is hypotensive. She is not tachycardic. Related Data Home Medications Medication Instructions Recorded Confirmed apixaban 5 mg tablet (Eliquis) 5 mg PO BID 08/01/19 03/14/24 dorzolamide 2 % eye drops 1 drp ophthalmic (eye) TID 04/20/21 03/14/24 diltiazem HCl 120 mg capsule,24 120 mg PO DAILY 01/31/24 03/14/24 hr,extended release (Tiadylt ER) hydralazine 25 mg tablet 25 mg PO TID 01/31/24 03/14/24 levothyroxine 50 mcg capsule 75 mcg PO DAILY 01/31/24 03/14/24 diltiazem HCl 240 mg capsule,24 240 mg PO DAILY 03/14/24 03/14/24 hr,extended release (Tiadylt ER) Previous Rx's Medication Instructions Recorded furosemide 20 mg tablet 20 mg PO DAILY #5 tabs 05/27/23 ondansetron 8 mg disintegrating 8 mg PO Q6H #14 tabs 03/14/24 tablet Allergies Allergy/AdvReac Type Severity Reaction Status Date / Time orange juice Allergy Intermediate ADR-Vomitin Verified 01/31/24 14:24 g potassium Allergy Intermediate sick in Verified 01/31/24 14:24 the stomach amoxicillin Allergy unk Verified 01/31/24 14:24 buspirone Allergy unk Verified 01/31/24 14:24 hydralazine Allergy coughing Verified 01/31/24 14:24 and nausea Penicillins Allergy shortness Verified 01/31/24 14:24 of breath povidone-iodine Allergy unk Verified 01/31/24 14:24 [From Betadine] soap [From Betadine] Allergy unk Verified 01/31/24 14:24 Upacwfu-HWW-QuF Reductase Allergy FLu like Verified 01/31/24 14:24 Inhibitor symptoms [Mtnckft-Ahr-Khm Reductase Inhibitor] carvedilol AdvReac Severe cough Verified 01/31/24 14:24 amlodipine AdvReac BLE edema Verified 01/31/24 14:24 valsartan AdvReac unknown Verified 01/31/24 14:24 Review of Systems Narrative: Constitutional symptoms: Negative except as documented in HPI. Skin symptoms: Negative except as documented in HPI. Eye symptoms: Negative except as documented in HPI. ENMT symptoms: Negative except as documented in HPI. Respiratory symptoms: Negative except as documented in HPI. Cardiovascular symptoms: Negative except as documented in HPI. Gastrointestinal symptoms: Negative except as documented in HPI. Genitourinary symptoms: Negative except as documented in HPI. Musculoskeletal symptoms: Negative except as documented in HPI. Neurologic symptoms: Negative except as documented in HPI. Psychiatric symptoms: Negative except as documented in HPI. Endocrine symptoms: Negative except as documented in HPI. 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 Brother CAD (coronary artery disease) Brother , 2 brothers of heart disease CAD (coronary artery disease) Denies family history of Diabetes Clotting disorder Dementia Hyperlipidemia Psychiatric illness Chronic kidney disease (CKD) Suicide Anesthesia complication Bleeding disorder Family history of premature coronary artery disease Lung disease Cancer Hypertension Stroke Social History Smoking and tobacco/nicotine status: current every day tobacco/nicotine user Alcohol intake: never Substance/Drug Use: never Physical Exam Narrative: EXAM NARRATIVE: General: Alert, no acute distress. Skin: Warm, dry. Head: Normocephalic, atraumatic. Neck: Supple, trachea midline. Eye: Extraocular movements are intact. Ears, nose, mouth and throat: Dry oral mucosa Cardiovascular: Regular, Normal peripheral perfusion. Respiratory: Lungs are clear to auscultation, respirations are non-labored, breath sounds are equal, Symmetrical chest wall expansion. Gastrointestinal: Soft, epigastric tenderness to palpation, Non distended Musculoskeletal: Normal ROM, no deformity. Neurological: Alert and oriented, No focal neurological deficit observed. Psychiatric: Cooperative, appropriate mood & affect. Course Vital Signs: Vital signs: Vital Signs Temperature 97.9 F 03/14/24 10:41 Pulse Rate 62 03/14/24 14:30 Respiratory Rate 16 03/14/24 14:30 Blood Pressure 117/75 03/14/24 14:30 Pulse Oximetry 94 03/14/24 14:30 Oxygen Delivery Me thod Room Air 03/14/24 12:08 MDM - Chest Pain Medical Decision Making Medical decision making: Differential diagnosis for this patient with nausea and vomiting including but not limited to and based on the above HPI, review of systems and physical exam: Urinary tract infection. Appendicitis. Cholecystis. colitis. small bowel obstruction. crohn's flare. pancreatitis. gastritis. peptic ulcer. cyclic vomiting. Viral illness. Influenza. COVID. - Workup - labwork and imaging ordered to evaluate, rule in and rule out above pathologies. EKG: Time 1032. Rate 83. Normal sinus rhythm, I believe this is paced. She has significant ST depression diffusely. This was present in a previous EKG., no ectopy, normal WA & QRS intervals, This was reviewed and interpreted by myself the ER physician at 10:34 AM. Repeat EKG: Time 1232. Rate 61. Normal sinus rhythm, No ST-T changes, no ectopy, paced rhythm, this was reviewed and interpreted by myself the emergency room physician at 1235. Definitely appears paced now. Rate has decreased by about 20 bpm. Chest x-ray: No acute process. No infiltrate. No pneumothorax. This was reviewed and interpreted by myself the ER physician. Lab Review: Laboratory results were reviewed and interpreted by myself the emergency room physician. Lab work is fairly unremarkable. No leukocytosis. No anemia. BUN and creatinine are 17 and 0.9. Urinalysis is negative for infection. Liver enzymes are normal. Serial troponins are negative. CT of the abdomen pelvis with contrast: Small umbilical hernia. This is not painful. Similar mildly dilated bile duct. She has had a cholecystectomy. Of note there is a pulmonary nodule. This was reviewed and interpreted by myself the emergency room physician. I also reviewed the radiology report. I reviewed the patient's medical record. Reexamination: Patient is feeling much better. Blood pressure is normalized with fluids. This was reviewed and interpreted by myself the emergency room physician. I also reviewed the radiology report. Assessment and plan: Gastroenteritis Vomiting Dehydration ?2 L normal saline bolus and IV Zofran. No signs of infection. Patient much improved. - Discharged home - Discussed findings and plan with patient. Answered any questions. - All laboratory values were reviewed and interpreted personally by myself, the ER physician - All imaging was reviewed and interpreted personally by myself, the ER physician. - Evaluation and treatment of this problem were appropriate in the emergency setting Lab Data 03/14/24 10:47 03/14/24 10:47 Radiology Impressions Chest X-Ray 03/14/24 10:34 IMPRESSION: No acute findings. Abdomen/Pelvis CT 03/14/24 11:44 IMPRESSION: 1. Herniation of a small loop of small bowel at the umbilicus new from the prior studies. Recommend correlation for umbilical pain. No evidence of high-grade obstruction. 2. Prior cholecystectomy with dilatation of the common bile duct slightly progressed but similar in appearance to the prior studies likely physiologic. 3. 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 No hydronephrosis. 4. New 12 mm nodule in the LEFT lower lobe. Recommend follow-up chest CT. 5. Prior hysterectomy and appendectomy. 6. Chronic spondylolysis L5-S1 with grade 1 anterolisthesis. Laboratory Results WBC 5.61 10^3/uL (3.29-11.43) 03/14/24 10:47 RBC 5.47 10^6/uL (3.85-5.65) 03/14/24 10:47 Hgb 13.00 g/dL (11.27-16.99) 03/14/24 10:47 Hct 41.6 % (36-47) 03/14/24 10:47 MCV 76.1 fl (85-98) L 03/14/24 10:47 MCH 23.8 pg (27-33) L 03/14/24 10:47 MCHC 31.3 g/dL (30-55) 03/14/24 10:47 RDW 17.9 % (12.1-15.1) H 03/14/24 10:47 Plt Count 279 10^3/cmm (157-399) 03/14/24 10:47 MPV 10.8 fL (7.4-10.4) H 03/14/24 10:47 Neut % (Auto) 66.8 % 03/14/24 10:47 Lymph % (Auto) 20.9 % 03/14/24 10:47 Nicholas % (Auto) 9.6 % 03/14/24 10:47 Eos % (Auto) 1.4 % 03/14/24 10:47 Baso % (Auto) 0.9 % 03/14/24 10:47 Neut # (Auto) 3.75 10^3/uL (1.8-7.7) 03/14/24 10:47 Lymph # (Auto) 1.2 10^3/uL (0.8-4.8) 03/14/24 10:47 Nicholas # (Auto) 0.5 10^3/uL (0.2-0.9) 03/14/24 10:47 Eos # (Auto) 0.1 10^3/uL (0.0-0.8) 03/14/24 10:47 Baso # (Auto) 0.1 10^3/uL (0.0-0.1) 03/14/24 10:47 Nucleated RBC % (auto) 0 % 03/14/24 10:47 Nucleated RBCs # 0.0 /100WBC 03/14/24 10:47 Sodium 137 mmol/L (136-145) 03/14/24 10:47 Potassium 3.8 mmol/L (3.5-5.1) 03/14/24 10:47 Chloride 105 mmol/L (98-107) 03/14/24 10:47 Carbon Dioxide 21 mmol/L (22-29) L 03/14/24 10:47 Anion Gap 14.8 (5-19) 03/14/24 10:47 BUN 17 mg/dL (8-23) 03/14/24 10:47 Creatinine 0.9 mg/dL (0.5-0.9) 03/14/24 10:47 GFR Calculation 62.1 mL/min (90-130) L 03/14/24 10:47 Glucose 116 mg/dL (65-115) H 03/14/24 10:47 Calculated Osmolality 287 mOsm/kg (285-295) 03/14/24 10:47 Calcium 9.2 mg/dL (8.5-10.5) 03/14/24 10:47 Total Bilirubin 0.4 mg/dL (0.15-1.2) 03/14/24 10:47 AST 18 U/L (0-32) 03/14/24 10:47 ALT 13 U/L (0-33) 03/14/24 10:47 Alkaline Phosphatase 101 U/L (35-105) 03/14/24 10:47 Troponin T Baseline 29 ng/L (0-10) H 03/14/24 10:47 Troponin T 120 Minute 25.63 ng/L (0-10) H 03/14/24 13:12 Delta Troponin T -3.37 ABS# (0-10) L 03/14/24 13:12 C-Reactive Protein 5.6 mg/L (0.0-4.9) H 03/14/24 10:47 Total Protein 7.1 g/dL (6.6-8.7) 03/14/24 10:47 Albumin 4.2 g/dL (3.5-5.2) 03/14/24 10:47 Globulin 2.9 g/dL (1.3-4.6) 03/14/24 10:47 Lipase 42 U/L (13-60) 03/14/24 10:47 Urine Color Yellow (Yellow) 03/14/24 11:55 Urine Appearance Clear (CLEAR) 03/14/24 11:55 Urine pH 6.5 (5-7) 03/14/24 11:55 Ur Specific [place] 1.013 (1.005-1.030) 03/14/24 11:55 Urine Protein 1+ (Negative) A 03/14/24 11:55 Urine Glucose (UA) Negative (Normal) 03/14/24 11:55 Urine Ketones Negative (Negative) 03/14/24 11:55 Urine Blood Negative (Negative) 03/14/24 11:55 Urine Nitrate Negative (Negative) 03/14/24 11:55 Urine Bilirubin Negative (Negative) 03/14/24 11:55 Urine Urobilinogen 1.0 mg/dL (Negative) 03/14/24 11:55 Ur Leukocyte Esterase Negative (Negative) 03/14/24 11:55 Urine RBC 0-2 /hpf (0-2) 03/14/24 11:55 Urine WBC 0-5 /hpf (0-5) 03/14/24 11:55 Ur Squamous Epith Cells 0-5 /hpf (0-5) 03/14/24 11:55 Amorphous Sediment Not Reportable 03/14/24 11:55 Urine Bacteria None seen /hpf (NONE) 03/14/24 11:55 Hyaline Casts 30.18 /lpf 03/14/24 11:55 All radiology interpretation(s) finalized by discharge Discharge Plan Discharge Patient Disposition: Home Clinical Impression: Gastroenteritis, Dehydration, Incidental pulmonary nodule Condition: Stable Prescriptions: New ondansetron 8 mg tablet,disintegrating 8 mg PO Q6H Qty: 14 0RF Rx Instructions: Take 1/2-1 tab every 6 hours as needed for nausea and vomiting No Action Eliquis 5 mg tablet 5 mg PO BID levothyroxine 50 mcg capsule 75 mcg PO DAILY dorzolamide 2 % drops 1 drp ophthalmic (eye) TID Rx Instructions: both eyes hydralazine 25 mg tablet 25 mg PO TID diltiazem HCl [Tiadylt ER] 120 mg capsule,extended release 24 hr 120 mg PO DAILY diltiazem HCl [Tiadylt ER] 240 mg capsule,extended release 24 hr 240 mg PO DAILY furosemide 20 mg tablet 20 mg PO DAILY Qty: 5 0RF Discharge Orders: Discharge ED (Routine); Ordered 03/14/24 Ordered By: Sonam Mcgowan Referrals: Mega Martinez MD [Primary Care Provider] - Discharge Diet: Usual diet Discharge Activity: Increase activity as tolerated Patient Instructions: Dehydration (ED), Gastroenteritis (ED) Activity Restrictions/Additional Instructions: A pulmonary nodule was seen on imaging. This will need follow up imaging with your primary provider. Please schedule an appointment concerning this. Thank you for choosing [facility] for your healthcare needs today. Please realize this is an emergency room and that we are providing you with a medical screening exam and this may not be complete and all inclusive of all the testing and or work up that you may need to determine your ailment or severity of your illness. You have been screened and evaluated and felt safe for discharge. Health conditions do change or evolve sometimes and as such it is important that you follow up with your Primary Doctor to be re checked, 3-5 days is a general good time frame for follow up. You are always welcome to return to the ED for re assessment if your symptoms are worsening or you have new concerns Coding Level of Care Code ED Spindle Maker for Jordan Espinoza
--- NOTE | 2024-03-14 11:47 | PC.PHAR ---
family thinks that the diltiazem 240mg has caused her to be in here might need to be addressed
[2024-03-14 12:08] VITALS: BP 153/90; PULSE 60; RESP 24; O2SAT 96
[2024-03-14 12:16] LABS: Bilirubin Urine Negative (Negative); Blood Urine Negative (Negative); Glucose Urine UA Negative (Normal); Ketones Urine Negative (Negative); Leukocyte Esterase Urine Negative (Negative); Nitrate Urine Negative (Negative); Protein Urine 1+ (Negative); Specific Gravity, Urine 1.013 (1.005-1.030); Urine Appearance Clear (CLEAR); Urine Color Yellow (Yellow); pH Urine 6.5 (5-7)
[2024-03-14] MEDS: iohexol 350 mg/mL 500 mL Btl (per mL) IV (12:20)
[2024-03-14 12:22] LABS: Bacteria Urine None Seen /hpf; Hyaline Casts Urine 30.18 /lpf; RBC Urine 0-2 /hpf (0-2); Squamous Epithelial Cell Urine 0-5 /hpf (0-5); WBC Urine 0-5 /hpf (0-5)
--- NOTE | 2024-03-14 12:32 | ECG_ITS ---
[facility] Test Date: 2024-03-14 Pat Name: Kaity Ferro Department: Room: Gender: Female Tin Dipper: : 1955 Requested By: Sonam Dyer Order Number: [id number] Kayleigh MD: JAIME GASTON Measurements Intervals [place] Rate: 61 P: 168 [place]: 183 QRS: 43 QRSD: 103 T: 259 QT: 478 QTc: 485 Interpretive Statements ELECTRONIC ATRIAL PACEMAKER LEFT VENTRICULAR HYPERTROPHY AND ST-T CHANGE [VOLTAGE CRITERIA PLUS ST/T ABNORMALITY] Compared to ECG 03/14/2024 10:32:42 Sinus rhythm no longer present Myocardial infarct finding no longer present ST (T wave) deviation still present Electronically Signed On 03-14-2024 20:11:28 CDT by JAIME GASTON [id number]
[2024-03-14 12:49] LABS: Add Urine Culture? No
[2024-03-14 14:10] LABS: Troponin 5 2HR 25.63 ng/L (0-10)
[2024-03-14 14:12] LABS: Troponin 5 2HR Delta -3.37 ABS# (0-10)
[2024-03-14 14:30] VITALS: BP 117/75; PULSE 62; RESP 16; O2SAT 94
== END 2024-03-14 14:32 | disposition home or self-care (01) ==
PROVIDERS: Emergency Provider Emergency Medicine; PCP Family Medicine
DX: K52.9 Noninfective gastroenteritis and colitis, unspecified (principal); E86.0 Dehydration; R91.1 Solitary pulmonary nodule; Z79.01 Long term (current) use of anticoagulants; Z72.0 Tobacco use; I10 Essential (primary) hypertension; Z85.89 Personal history of malignant neoplasm of other organs and systems
CPT/HCPCS: 36415; 71045; 74177; 80053; 81001; 83690; 84484; 85025; 86140; 87040; 93005; 96374; 99285; J2405; J7030

== ENCOUNTER 2024-03-27 12:55 | Inpatient (IN) | payer MEDICARE, SELFPAY ==
[2024-03-27] VITALS (34 sets, daily range): BP systolic 97–163; BP diastolic 71–114; PULSE 135–164; RESP 19–39; TEMP 37–37.2; O2SAT 90–95; BMI 27.3; BMI 26.8
--- NOTE | 2024-03-27 13:01 | ECG_ITS ---
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1955 Requested By: Francis Dyer Order Number: [id number] Reading MD: JAIME GASTON Measurements Intervals [place] Rate: 163 P: 0 ME: 0 QRS: 17 QRSD: 154 T: 262 QT: 262 QTc: 431 Interpretive Statements ATRIAL FLUTTER/TACHYCARDIA WITH RAPID VENTRICULAR RESPONSE INTRAVENTRICULAR CONDUCTION DELAY [130+ ms QRS DURATION] Compared to ECG 03/14/2024 12:32:44 Intraventricular conduction delay now present Atrial-paced complex(es) or rhythm no longer present Left ventricular hypertrophy no longer present ST (T wave) deviation no longer present Electronically Signed On 03-27-2024 20:56:39 CDT by JAIME GASTON [id number]
--- NOTE | 2024-03-27 13:14 | ED_ITS ---
Documented by User: Francis Cortez DO 03/28/24 07:03 HPI - Back Pain/Injury 2 General: Chief Complaint: Back Pain/Injury Stated Complaint: Back Pain, Side pain Time Seen by Provider: 03/27/24 12:56 History of Present Illness: 68-year-old female who presents to the e mergency room with complaints of back pain and side pain. She is disoriented and lethargic difficult to arouse. In addition to all this she tested positive for COVID approximately 1 week ago. Remote history of GI bleed she has not had any hematochezia or melena recently. When I came to see the patient she was difficult to arouse but did eventually wake up with appropriate stimulus. She is mildly hypoxic with a O2 sat at room air at 90%. She is was severely tachycardic she is complaining of back pain with some pain in the right upper quadrant as well. She has previously had a cholecystectomy. Associated symptoms: Deny abdominal pain, chills, dysuria, fever(s) or urinary urgency Related Data Home Medications Medication Instructions Recorded Confirmed apixaban 5 mg tablet (Eliquis) 5 mg PO BID 08/01/19 03/27/24 dorzolamide 2 % eye drops 1 drp ophthalmic (eye) TID 04/20/21 03/27/24 diltiazem HCl 120 mg capsule,24 120 mg PO DAILY 01/31/24 03/27/24 hr,extended release (Tiadylt ER) hydralazine 25 mg tablet 25 mg PO TID 01/31/24 03/27/24 levothyroxine 50 mcg capsule 75 mcg PO DAILY 01/31/24 03/27/24 diltiazem HCl 240 mg capsule,24 240 mg PO DAILY 03/14/24 03/27/24 hr,extended release (Tiadylt ER) Previous Rx's Medication Instructions Recorded furosemide 20 mg tablet 20 mg PO DAILY #5 tabs 05/27/23 ondansetron 8 mg disintegrating 8 mg PO Q6H #14 tabs 03/14/24 tablet Allergies Allergy/AdvReac Type Severity Reaction Status Date / Time orange juice Allergy Intermediate ADR-Vomitin Verified 01/31/24 14:24 g potassium Allergy Intermediate sick in Verified 01/31/24 14:24 the stomach amoxicillin Allergy unk Verified 01/31/24 14:24 buspirone Allergy unk Verified 01/31/24 14:24 hydralazine Allergy coughing Verified 01/31/24 14:24 and nausea Penicillins Allergy shortness Verified 01/31/24 14:24 of breath povidone-iodine Allergy unk Verified 01/31/24 14:24 [From Betadine] soap [From Betadine] Allergy unk Verified 01/31/24 14:24 Uaecslc-KJU-VrK Reductase Allergy FLu like Verified 01/31/24 14:24 Inhibitor symptoms [Daixvpj-Wcn-Ids Reductase Inhibitor] carvedilol AdvReac Severe cough Verified 01/31/24 14:24 amlodipine AdvReac BLE edema Verified 01/31/24 14:24 valsartan AdvReac unknown Verified 01/31/24 14:24 Review of Systems 2 Const: Denies: fever(s) or chills Card: Denies: chest pain Resp: Denies: dyspnea GI: Denies: abdominal pain : Denies: dysuria, urinary frequency or urinary urgency Musc: Denies: neck pain or back pain Skin/Breast: Denies: rash PFSH ED 2 PFSH: Medical History Chest pain Peripheral neuropathy Glaucoma Herpes genitalis 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 Brother CAD (coronary artery disease) Brother , 2 brothers of heart disease CAD (coronary artery disease) Denies family history of Diabetes Clotting disorder Dementia Hyperlipidemia Psychiatric illness Chronic kidney disease (CKD) Suicide Anesthesia complication Bleeding disorder Family history of premature coronary artery disease Lung disease Cancer Hypertension Stroke Social History Smoking and tobacco/nicotine status: current every day tobacco/nicotine user Alcohol intake: never Substance/Drug Use: never Physical Exam 2 Const: GENERAL APPEARANCE: lethargic ORIENTATION/CONSCIOUSNESS: Yes awake and Yes lethargic HENMT: COMMON NORMALS: normocephalic and atraumatic HEAD & SCALP: n ormocephalic and atraumatic Resp: EFFORT & INSPECTION: Yes tachypneic AUSCULTATION: rhonchi and wheezes Cardio: RATE: tachycardic RHYTHM: abnormal rhythm irregularly irregular GI: COMMON NORMALS: No hepatosplenomegaly present AUSCULTATION: Yes normoactive bowel sounds PALPATION: Yes Tenderness to palpation present (GI) (Epigastric), No Guarding due to palpation present (GI) and Yes No hepatosplenomegaly present Extremity: COMMON NORMALS: normal to inspection, capillary refill normal, no clubbing, cyanosis or edema, no calf tenderness and no pedal edema Neuro: SENSORIUM/ORIENTATION: Yes lethargic Skin: COMMON NORMALS: no rashes or lesions noted GENERAL SKIN EXAM: no rashes or lesions noted Course 2 Vital Signs: Vital signs: Vital Signs Temperature 98.6 F 03/28/24 04:00 Pulse Rate 139 H 03/28/24 04:00 Respiratory Rate 19 H 03/28/24 04:00 Blood Pressure 134/92 03/28/24 04:00 Pulse Oximetry 91 03/28/24 04:00 Oxygen Delivery Me thod Room Air 03/28/24 04:00 Oxygen Flow Rate 4 03/27/24 21:00 MDM - Back Pain/Injury Medical Decision Making Patient leukocytosis A-fib with RVR on arrival. She was diagnosed with COVID 1 week ago. She is on apixaban. She is requiring oxygen supplementation CTA chest abdomen pelvis are pending she does have some abdominal pain as well care signed out to Dr. Angeles at change of shift. See final notes for diagnosis and disposition. Care transferred over shift change, elevated white count of 23, BUN/creatinine 29 and 1.6, lactic acid 2.5, lipase 251, chest abdomen pelvis showed anterior inferior right upper lobe possible atelectasis or infection, dilated ascending thoracic aorta, acute interstitial edematous pancreatitis, mild ascites, mild to moderate severe diffuse biliary dilation but is stable, we will get ultrasound for this and admit depending upon results. Dr. Palacio was consulted who is in agreements. EKG showed a flutter/fib with RVR, patient was given Cardizem bolus and drip that did not result resolved, started on amiodarone bolus and drip, given Levaquin IV, metoprolol IV, patient will probably be admitted to [facility]. Discussed the case with Dr. Brooklyn JONES at [facility], he says the pain is probably from the pancreatitis as well as possible elevation of the white blood cell count, he would treat aggressive with fluids and IV antibiotics for the pneumonia. He does not think the dilated bile ducts is a new factor as they have been seen in the past and are unchanged. There was no note of any new mass or cyst. And if there been an obstruction in the liver enzymes should be elevated. He does not feel she needs any type of GI intervention at this time. Labs 03/28/24 04:39 03/28/24 04:39 Radiology Impressions Chest/Abdomen/Pelvis CT 03/27/24 14:26 IMPRESSION: 1. No pulmonary embolism. 2. Consolidation and volume loss in the anterior inferior right upper lobe. Possible atelectasis and/or infection. 3. Mild diffuse central bronchial wall thickening and ground-glass opacity in the lower lungs suggests pulmonary edema. 4. No aortic dissection. Dilated ascending thoracic aorta. Recommend clinical assessment and follow-up. 5. Trace simple right pleural effusion. 6. Incidental findings above. IMPRESSION: 1. Acute interstitial edematous pancreatitis. No sign of necrosis or hemorrhage. No sign of pancreatic duct obstruction. No biliary or pancreatic duct stones. 2. Mild ascites. No organized fluid collection. No sign of significant intraperitoneal bleeding. 3. Moderate to severe diffuse biliary dilation is stable since 11/21/2019 and may be related to reservoir fract from prior cholecystectomy. Distal common bile duct obstruction is not excluded. No stones are seen. Correlate with liver function tests. 4. 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 5. Incidental findings above. Abdomen Ultrasound 03/27/24 17:28 IMPRESSION: 1. Prominent bile ducts as described above. 2. Absent right kidney. Prominent left kidney. 3. The pancreas was obscured. Laboratory Results WBC 23.19 10^3/uL (3.29-11.43) H 03/27/24 13:32 RBC 6.63 10^6/uL (3.85-5.65) H 03/27/24 13:32 Hgb 15.60 g/dL (11.27-16.99) 03/27/24 13:32 Hct 49.6 % (36-47) H 03/27/24 13:32 MCV 74.8 fl (85-98) L 03/27/24 13:32 MCH 23.5 pg (27-33) L 03/27/24 13:32 MCHC 31.5 g/dL (30-55) 03/27/24 13:32 RDW 19.0 % (12.1-15.1) H 03/27/24 13:32 Plt Count 506 10^3/cmm (157-399) H 03/27/24 13:32 MPV 10.6 fL (7.4-10.4) H 03/27/24 13:32 Neut % (Auto) 88.6 % 03/27/24 13:32 Lymph % (Auto) 4.7 % 03/27/24 13:32 [place] % (Auto) 5.0 % 03/27/24 13:32 Eos % (Auto) 0.6 % 03/27/24 13:32 Baso % (Auto) 0.2 % 03/27/24 13:32 Neut # (Auto) 20.52 10^3/uL (1.8-7.7) H 03/27/24 13:32 Lymph # (Auto) 1.1 10^3/uL (0.8-4.8) 03/27/24 13:32 [place] # (Auto) 1.2 10^3/uL (0.2-0.9) H 03/27/24 13:32 Eos # (Auto) 0.1 10^3/uL (0.0-0.8) 03/27/24 13:32 Baso # (Auto) 0.1 10^3/uL (0.0-0.1) 03/27/24 13:32 Nucleated RBC % (auto) 0 % 03/27/24 13:32 Nucleated RBCs # 0.0 /100WBC 03/27/24 13:32 Specimen Type Arterial 03/27/24 13:16 Sample Site Radial, left 03/27/24 13:16 ABG pH 7.50 (7.35-7.45) H 03/27/24 13:16 ABG pCO2 22.4 mmHg (35-45) L 03/27/24 13:16 ABG pO2 58.3 mmHg (80.0-100.0) L 03/27/24 13:16 ABG PO2/FiO2 Ratio 208 03/27/24 13:16 ABG HCO3 17.3 mmol/L (22-26) L 03/27/24 13:16 ABG O2 Saturation 92.4 03/27/24 13:16 ABG Base Excess -3.6 mmol/L (-2.0-2.0) L 03/27/24 13:16 [place] Test Pos 03/27/24 13:16 A-a O2 Gradient 14.6 mmHg (5-10) H 03/27/24 13:16 Hematocrit 48.0 % (37-47) H 03/27/24 13:16 Hgb O2 Saturation 90.1 % (95-100) L 03/27/24 13:16 Carboxyhemoglobin 1.5 %THgb (0.4-20.1) 03/27/24 13:16 Methemoglobin 0.9 % (0.4-1.5) 03/27/24 13:16 Total Hemoglobin 15.7 g/dL (12-16) 03/27/24 13:16 Sodium 140.0 mmol/L (131-143) 03/27/24 13:16 Potassium 4.5 mmol/L (3.5-5.0) 03/27/24 13:16 Glucose 144.0 mg/dL (70-115) H 03/27/24 13:16 Ionized Calcium 1.2 mmol/L (1.1-1.4) 03/27/24 13:16 O2 Delivery Device Nc 03/27/24 13:16 O2 Liters/Min 2.0 % 03/27/24 13:16 FiO2 28.0 % 03/27/24 13:16 Automotive Electrical Helper ID Cak 03/27/24 13:16 Sodium 141 mmol/L (136-145) 03/27/24 13:32 Potassium 5.3 mmol/L (3.5-5.1) H 03/27/24 13:32 Chloride 109 mmol/L (98-107) H 03/27/24 13:32 Carbon Dioxide 17 mmol/L (22-29) L 03/27/24 13:32 Anion Gap 20.3 (5-19) H 03/27/24 13:32 BUN 29 mg/dL (8-23) H 03/27/24 13:32 Creatinine 1.6 mg/dL (0.5-0.9) H 03/27/24 13:32 GFR Calculation 32.0 mL/min (90-130) L 03/27/24 13:32 Glucose 136 mg/dL (65-115) H 03/27/24 13:32 Calculated Osmolality 300 mOsm/kg (285-295) H 03/27/24 13:32 Lactic Acid 2.5 mmol/L (0.5-2.2) H 03/27/24 13:32 Lactic Acid (Sepsis) 1.3 mmol/L (0.5-2.2) 03/27/24 17:08 Calcium 9.1 mg/dL (8.5-10.5) 03/27/24 13:32 Magnesium 2.0 mg/dL (1.7-2.3) 03/27/24 13:32 Total Bilirubin 0.8 mg/dL (0.15-1.2) 03/27/24 13:32 AST 23 U/L (0-32) 03/27/24 13:32 ALT 19 U/L (0-33) 03/27/24 13:32 Alkaline Phosphatase 104 U/L (35-105) 03/27/24 13:32 Troponin T Baseline 40 ng/L (0-10) H 03/27/24 13:32 Troponin T 120 Minute 28.82 ng/L (0-10) H 03/27/24 15:42 Delta Troponin T -11.18 ABS# (0-10) L 03/27/24 15:42 Total Protein 7.3 g/dL (6.6-8.7) 03/27/24 13:32 Albumin 3.6 g/dL (3.5-5.2) 03/27/24 13:32 Globulin 3.7 g/dL (1.3-4.6) 03/27/24 13:32 Lipase 251 U/L (13-60) H 03/27/24 13:32 Urine Color Yellow (Yellow) 03/27/24 15:26 Urine Appearance Clear (CLEAR) 03/27/24 15:26 Urine pH 6.5 (5-7) 03/27/24 15:26 Ur Specific [place] 1.036 (1.005-1.030) H 03/27/24 15:26 Urine Protein 2+ (Negative) A 03/27/24 15:26 Urine Glucose (UA) Negative (Normal) 03/27/24 15:26 Urine Ketones Negative (Negative) 03/27/24 15:26 Urine Blood Negative (Negative) 03/27/24 15:26 Urine Nitrate Negative (Negative) 03/27/24 15:26 Urine Bilirubin Negative (Negative) 03/27/24 15:26 Urine Urobilinogen 0.2 mg/dL (Negative) 03/27/24 15:26 Ur Leukocyte Esterase Negative (Negative) 03/27/24 15:26 Urine RBC 0-2 /hpf (0-2) 03/27/24 15:26 Urine WBC 11-20 /hpf (0-5) H 03/27/24 15:26 Ur Squamous Epith Cells 0-5 /hpf (0-5) 03/27/24 15:26 Amorphous Sediment Not Reportable 03/27/24 15:26 Urine Bacteria None seen /hpf (NONE) 03/27/24 15:26 Hyaline Casts 17.37 /lpf 03/27/24 15:26 Coarse Granular Casts Rare /lpf 03/27/24 15:26 Discharge Plan Discharge Patient Disposition: Admitted As Inpatient Admit Provider: Art Palacio Clinical Impression: Atrial fibrillation with rapid ventricular response Leukocytosis Qualifiers: Leukocytosis type: unspecified Qualified Code(s): D72.829 - Elevated white blood cell count, unspecified Pulmonary edema Qualifiers: Chronicity: acute Qualified Code(s): J81.0 - Acute pulmonary edema Right upper lobe pneumonia Qualifiers: Pneumonia type: due to unspecified organism Qualified Code(s): J18.9 - Pneumonia, unspecified organism Pancreatitis Qualifiers: Chronicity: acute Pancreatitis type: unspecified pancreatitis type Acute pancreatitis complication: no infection or necrosis Qualified Code(s): K85.90 - Acute pancreatitis without necrosis or infection, unspecified Condition: Stable Coding Level of Care Code 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 [employer]wd Documented by User: Cayetano Angeles DO 03/27/24 22:52 HPI - Back Pain/Injury 2 General: Chief Complaint: Back Pain/Injury Stated Complaint: Back Pain, Side pain Time Seen by Provider: 03/27/24 12:56 Related Data Home Medications Medication Instructions Recorded Confirmed apixaban 5 mg tablet (Eliquis) 5 mg PO BID 08/01/19 03/27/24 dorzolamide 2 % eye drops 1 drp ophthalmic (eye) TID 04/20/21 03/27/24 diltiazem HCl 120 mg capsule,24 120 mg PO DAILY 01/31/24 03/27/24 hr,extended release (Tiadylt ER) hydralazine 25 mg tablet 25 mg PO TID 01/31/24 03/27/24 levothyroxine 50 mcg capsule 75 mcg PO DAILY 01/31/24 03/27/24 diltiazem HCl 240 mg capsule,24 240 mg PO DAILY 03/14/24 03/27/24 hr,extended release (Tiadylt ER) Previous Rx's Medication Instructions Recorded furosemide 20 mg tablet 20 mg PO DAILY #5 tabs 05/27/23 ondansetron 8 mg disintegrating 8 mg PO Q6H #14 tabs 03/14/24 tablet Allergies Allergy/AdvReac Type Severity Reaction Status Date / Time orange juice Allergy Intermediate ADR-Vomitin Verified 01/31/24 14:24 g potassium Allergy Intermediate sick in Verified 01/31/24 14:24 the stomach amoxicillin Allergy unk Verified 01/31/24 14:24 buspirone Allergy unk Verified 01/31/24 14:24 hydralazine Allergy coughing Verified 01/31/24 14:24 and nausea Penicillins Allergy shortness Verified 01/31/24 14:24 of breath povidone-iodine Allergy unk Verified 01/31/24 14:24 [From Betadine] soap [From Betadine] Allergy unk Verified 01/31/24 14:24 Hkezoki-XDX-VgD Reductase Allergy FLu like Verified 01/31/24 14:24 Inhibitor symptoms [Ntzncdt-Tdl-Edq Reductase Inhibitor] carvedilol AdvReac Severe cough Verified 01/31/24 14:24 amlodipine AdvReac BLE edema Verified 01/31/24 14:24 valsartan AdvReac unknown Verified 01/31/24 14:24 PFS ED 2 PFSH: Medical History Chest pain Peripheral neuropathy Glaucoma Herpes genitalis 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 Brother CAD (coronary artery disease) Brother , 2 brothers of heart disease CAD (coronary artery disease) Denies family history of Diabetes Clotting disorder Dementia Hyperlipidemia Psychiatric illness Chronic kidney disease (CKD) Suicide Anesthesia complication Bleeding disorder Family history of premature coronary artery disease Lung disease Cancer Hypertension Stroke Social History Smoking and tobacco/nicotine status: current every day tobacco/nicotine user Alcohol intake: never Substance/Drug Use: never Course 2 Vital Signs: Vital signs: Vital Signs Temperature 98.6 F 03/28/24 04:00 Pulse Rate 139 H 03/28/24 04:00 Respiratory Rate 19 H 03/28/24 04:00 Blood Pressure 134/92 03/28/24 04:00 Pulse Oximetry 91 03/28/24 04:00 Oxygen Delivery Me thod Room Air 03/28/24 04:00 Oxygen Flow Rate 4 03/27/24 21:00 MDM - Back Pain/Injury Medical Decision Making Care transferred over shift change, elevated white count of 23, BUN/creatinine 29 and 1.6, lactic acid 2.5, lipase 251, chest abdomen pelvis showed anterior inferior right upper lobe possible atelectasis or infection, dilated ascending thoracic aorta, acute interstitial edematous pancreatitis, mild ascites, mild to moderate severe diffuse biliary dilation but is stable, we will get ultrasound for this and admit depending upon results. Dr. Palacio was consulted who is in agreements. EKG showed a flutter/fib with RVR, patient was given Cardizem bolus and drip that did not result resolved, started on amiodarone bolus and drip, given Levaquin IV, metoprolol IV, patient will probably be admitted to [facility]. Discussed the case with Dr. Brooklyn JONES at [facility], he says the pain is probably from the pancreatitis as well as possible elevation of the white blood cell count, he would treat aggressive with fluids and IV antibiotics for the pneumonia. He does not think the dilated bile ducts is a new factor as they have been seen in the past and are unchanged. There was no note of any new mass or cyst. And if there been an obstruction in the liver enzymes should be elevated. He does not feel she needs any type of GI intervention at this time. Medical Records I reviewed the patient's medical records. Labs I reviewed the patient's lab results. 03/28/24 04:39 03/28/24 04:39 Radiology Impressions Chest/Abdomen/Pelvis CT 03/27/24 14:26 IMPRESSION: 1. No pulmonary embolism. 2. Consolidation and volume loss in the anterior inferior right upper lobe. Possible atelectasis and/or infection. 3. Mild diffuse central bronchial wall thickening and ground-glass opacity in the lower lungs suggests pulmonary edema. 4. No aortic dissection. Dilated ascending thoracic aorta. Recommend clinical assessment and follow-up. 5. Trace simple right pleural effusion. 6. Incidental findings above. IMPRESSION: 1. Acute interstitial edematous pancreatitis. No sign of necrosis or hemorrhage. No sign of pancreatic duct obstruction. No biliary or pancreatic duct stones. 2. Mild ascites. No organized fluid collection. No sign of significant intraperitoneal bleeding. 3. Moderate to severe diffuse biliary dilation is stable since 11/21/2019 and may be related to reservoir fract from prior cholecystectomy. Distal common bile duct obstruction is not excluded. No stones are seen. Correlate with liver function tests. 4. 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 5. Incidental findings above. Abdomen Ultrasound 03/27/24 17:28 IMPRESSION: 1. Prominent bile ducts as described above. 2. Absent right kidney. Prominent left kidney. 3. The pancreas was obscured. Laboratory Results WBC 23.19 10^3/uL (3.29-11.43) H 03/27/24 13:32 RBC 6.63 10^6/uL (3.85-5.65) H 03/27/24 13:32 Hgb 15.60 g/dL (11.27-16.99) 03/27/24 13:32 Hct 49.6 % (36-47) H 03/27/24 13:32 MCV 74.8 fl (85-98) L 03/27/24 13:32 MCH 23.5 pg (27-33) L 03/27/24 13:32 MCHC 31.5 g/dL (30-55) 03/27/24 13:32 RDW 19.0 % (12.1-15.1) H 03/27/24 13:32 Plt Count 506 10^3/cmm (157-399) H 03/27/24 13:32 MPV 10.6 fL (7.4-10.4) H 03/27/24 13:32 Neut % (Auto) 88.6 % 03/27/24 13:32 Lymph % (Auto) 4.7 % 03/27/24 13:32 [place] % (Auto) 5.0 % 03/27/24 13:32 Eos % (Auto) 0.6 % 03/27/24 13:32 Baso % (Auto) 0.2 % 03/27/24 13:32 Neut # (Auto) 20.52 10^3/uL (1.8-7.7) H 03/27/24 13:32 Lymph # (Auto) 1.1 10^3/uL (0.8-4.8) 03/27/24 13:32 [place] # (Auto) 1.2 10^3/uL (0.2-0.9) H 03/27/24 13:32 Eos # (Auto) 0.1 10^3/uL (0.0-0.8) 03/27/24 13:32 Baso # (Auto) 0.1 10^3/uL (0.0-0.1) 03/27/24 13:32 Nucleated RBC % (auto) 0 % 03/27/24 13:32 Nucleated RBCs # 0.0 /100WBC 03/27/24 13:32 Specimen Type Arterial 03/27/24 13:16 Sample Site Radial, left 03/27/24 13:16 ABG pH 7.50 (7.35-7.45) H 03/27/24 13:16 ABG pCO2 22.4 mmHg (35-45) L 03/27/24 13:16 ABG pO2 58.3 mmHg (80.0-100.0) L 03/27/24 13:16 ABG PO2/FiO2 Ratio 208 03/27/24 13:16 ABG HCO3 17.3 mmol/L (22-26) L 03/27/24 13:16 ABG O2 Saturation 92.4 03/27/24 13:16 ABG Base Excess -3.6 mmol/L (-2.0-2.0) L 03/27/24 13:16 [place] Test Pos 03/27/24 13:16 A-a O2 Gradient 14.6 mmHg (5-10) H 03/27/24 13:16 Hematocrit 48.0 % (37-47) H 03/27/24 13:16 Hgb O2 Saturation 90.1 % (95-100) L 03/27/24 13:16 Carboxyhemoglobin 1.5 %THgb (0.4-20.1) 03/27/24 13:16 Methemoglobin 0.9 % (0.4-1.5) 03/27/24 13:16 Total Hemoglobin 15.7 g/dL (12-16) 03/27/24 13:16 Sodium 140.0 mmol/L (131-143) 03/27/24 13:16 Potassium 4.5 mmol/L (3.5-5.0) 03/27/24 13:16 Glucose 144.0 mg/dL (70-115) H 03/27/24 13:16 Ionized Calcium 1.2 mmol/L (1.1-1.4) 03/27/24 13:16 O2 Delivery Device Nc 03/27/24 13:16 O2 Liters/Min 2.0 % 03/27/24 13:16 FiO2 28.0 % 03/27/24 13:16 Automotive Electrical Helper ID Cak 03/27/24 13:16 Sodium 141 mmol/L (136-145) 03/27/24 13:32 Potassium 5.3 mmol/L (3.5-5.1) H 03/27/24 13:32 Chloride 109 mmol/L (98-107) H 03/27/24 13:32 Carbon Dioxide 17 mmol/L (22-29) L 03/27/24 13:32 Anion Gap 20.3 (5-19) H 03/27/24 13:32 BUN 29 mg/dL (8-23) H 03/27/24 13:32 Creatinine 1.6 mg/dL (0.5-0.9) H 03/27/24 13:32 GFR Calculation 32.0 mL/min (90-130) L 03/27/24 13:32 Glucose 136 mg/dL (65-115) H 03/27/24 13:32 Calculated Osmolality 300 mOsm/kg (285-295) H 03/27/24 13:32 Lactic Acid 2.5 mmol/L (0.5-2.2) H 03/27/24 13:32 Lactic Acid (Sepsis) 1.3 mmol/L (0.5-2.2) 03/27/24 17:08 Calcium 9.1 mg/dL (8.5-10.5) 03/27/24 13:32 Magnesium 2.0 mg/dL (1.7-2.3) 03/27/24 13:32 Total Bilirubin 0.8 mg/dL (0.15-1.2) 03/27/24 13:32 AST 23 U/L (0-32) 03/27/24 13:32 ALT 19 U/L (0-33) 03/27/24 13:32 Alkaline Phosphatase 104 U/L (35-105) 03/27/24 13:32 Troponin T Baseline 40 ng/L (0-10) H 03/27/24 13:32 Troponin T 120 Minute 28.82 ng/L (0-10) H 03/27/24 15:42 Delta Troponin T -11.18 ABS# (0-10) L 03/27/24 15:42 Total Protein 7.3 g/dL (6.6-8.7) 03/27/24 13:32 Albumin 3.6 g/dL (3.5-5.2) 03/27/24 13:32 Globulin 3.7 g/dL (1.3-4.6) 03/27/24 13:32 Lipase 251 U/L (13-60) H 03/27/24 13:32 Urine Color Yellow (Yellow) 03/27/24 15:26 Urine Appearance Clear (CLEAR) 03/27/24 15:26 Urine pH 6.5 (5-7) 03/27/24 15:26 Ur Specific [place] 1.036 (1.005-1.030) H 03/27/24 15:26 Urine Protein 2+ (Negative) A 03/27/24 15:26 Urine Glucose (UA) Negative (Normal) 03/27/24 15:26 Urine Ketones Negative (Negative) 03/27/24 15:26 Urine Blood Negative (Negative) 03/27/24 15:26 Urine Nitrate Negative (Negative) 03/27/24 15:26 Urine Bilirubin Negative (Negative) 03/27/24 15:26 Urine Urobilinogen 0.2 mg/dL (Negative) 03/27/24 15:26 Ur Leukocyte Esterase Negative (Negative) 03/27/24 15:26 Urine RBC 0-2 /hpf (0-2) 03/27/24 15:26 Urine WBC 11-20 /hpf (0-5) H 03/27/24 15:26 Ur Squamous Epith Cells 0-5 /hpf (0-5) 03/27/24 15:26 Amorphous Sediment Not Reportable 03/27/24 15:26 Urine Bacteria None seen /hpf (NONE) 03/27/24 15:26 Hyaline Casts 17.37 /lpf 03/27/24 15:26 Coarse Granular Casts Rare /lpf 03/27/24 15:26 All radiology interpretation(s) finalized by discharge Discharge Plan Discharge Patient Disposition: Admitted As Inpatient Admit Provider: Art Palacio Clinical Impression: Atrial fibrillation with rapid ventricular response Leukocytosis Qualifiers: Leukocytosis type: unspecified Qualified Code(s): D72.829 - Elevated white blood cell count, unspecified Pulmonary edema Qualifiers: Chronicity: acute Qualified Code(s): J81.0 - Acute pulmonary edema Right upper lobe pneumonia Qualifiers: Pneumonia type: due to unspecified organism Qualified Code(s): J18.9 - Pneumonia, unspecified organism Pancreatitis Qualifiers: Chronicity: acute Pancreatitis type: unspecified pancreatitis type Acute pancreatitis complication: no infection or necrosis Qualified Code(s): K85.90 - Acute pancreatitis without necrosis or infection, unspecified Condition: Stable Coding Level of Care Code 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
[2024-03-27 13:28] LABS: ABG PCO2 22.4 mmHg (35-45); Alveolar-Arterial Oxygen Gradi 14.6 mmHg (5-10); Base Excess ABG -3.6 mmol/L (-2.0-2.0); Blood Gas Allen Test Pos; Blood Gas Operator Identificat CAK; Blood Gas Sample Site Radial, left; Blood Gas Sample Type Arterial; Carboxyhemoglobin 1.5 %THgb (0.4-20.1); HCO3 ABG 17.3 mmol/L (22-26); HGB O2 Sat 90.1 % (95-100); Ionized Calcium Level - ABG 1.2 mmol/L (1.1-1.4); Methemoglobin 0.9 % (0.4-1.5); Oxygen Device NC; Oxygen Saturation ABG 92.4; PO2 ABG 58.3 mmHg (80.0-100.0); PO2 FiO2 Ratio Arterial Blood 208; Potassium Level - ABG 4.5 mmol/L (3.5-5.0); Total Hemoglobin 15.7 g/dL (12-16)
[2024-03-27] MEDS: dilTIAZem 5 mg/mL SDV 5 mL 20 MG IVP (13:33)
[2024-03-27] MEDS: dilTIAZem 100 MG in sodium chloride 0.9% (add-van) 100 ML IV (13:48)
[2024-03-27 13:51] LABS: Basophils # 0.1 10^3/uL (0.0-0.1); Basophils % 0.2 %; Eosinophils # 0.1 10^3/uL (0.0-0.8); Eosinophils % 0.6 %; Hematocrit 49.6 % (36-47); Lymphocytes # 1.1 10^3/uL (0.8-4.8); Lymphocytes % 4.7 %; Mean Corpuscular HGB Conc 31.5 g/dL (30-55); Mean Corpuscular Hemoglobin 23.5 pg (27-33); Mean Corpuscular Volume 74.8 fl (85-98); Mean Platelet Volume 10.6 fL (7.4-10.4); Monocytes # 1.2 10^3/uL (0.2-0.9); Neutrophils # 20.52 10^3/uL (1.8-7.7); Neutrophils % 88.6 %; Nucleated Red Blood Cells % 0 %; Platelet Count 506 10^3/cmm (157-399); Red Blood Count 6.63 10^6/uL (3.85-5.65); White Blood Count 23.19 10^3/uL (3.29-11.43)
[2024-03-27 14:08] LABS: Lactic Sepsis W/Reflex 2.5 mmol/L (0.5-2.2)
[2024-03-27] MEDS: levofloxacin-dextrose 5 % 750 MG/150 ML PREMIX 100 MG IV (14:09)
[2024-03-27 14:11] LABS: Troponin(5th) Baseline 40 ng/L (0-10)
[2024-03-27] MEDS: sodium chloride 0.9% 2,381.37 ML 2381.37 ML IV (14:14)
[2024-03-27 14:15] LABS: Alanine Aminotransferase 19 U/L (0-33); Albumin Level 3.6 g/dL (3.5-5.2); Alkaline Phosphatase 104 U/L (35-105); Aspartate Amino Transferase 23 U/L (0-32); Blood Urea Nitrogen 29 mg/dL (8-23); Calcium 9.1 mg/dL (8.5-10.5); Carbon Dioxide 17 mmol/L (22-29); Chloride 109 mmol/L (98-107); Creatinine Clr Calc Pharmacy 35.9961; Globulin 3.7 g/dL (1.3-4.6); Glucose 136 mg/dL (65-115); Lipase 251 U/L (13-60); Osmolality Calculated 300 mOsm/kg (285-295); Sodium 141 mmol/L (136-145); Total Bilirubin 0.8 mg/dL (0.15-1.2); Total Protein 7.3 g/dL (6.6-8.7)
[2024-03-27 14:24] LABS: Anion Gap 20.3 (5-19); Potassium 5.3 mmol/L (3.5-5.1)
--- NOTE | 2024-03-27 14:26 | CTR_ITS ---
PROCEDURE INFORMATION: Exam: CTA Chest With Contrast Exam date and time: 03/27/2024 2:59 PM Age: 68 years old Clinical indication: Patient HX: Dyspnea/tachycardia, pancreatitis; Severe back pain questionable pe vs dissection TECHNIQUE: Imaging protocol: Computed tomographic angiography of the chest with contrast. Exam focused on the arteries. 3D rendering (Not supervised by radiologist): MIP and/or 3D reconstructed images were created by the technologist. Radiation optimization: All CT scans at this facility use at least one of these dose optimization techniques: automated exposure control; mA and/or kV adjustment per patient size (includes targeted exams where dose is matched to clinical indication); or iterative reconstruction. Contrast material: OMNI 350; Contrast volume: 125 ml; Contrast route: INTRAVENOUS (IV); COMPARISON: CT lung screening [id number] 08/09/2022 10:17 AM RADIATION DOSE METRICS: Total DLP (mGy-cm): 1015.18 FINDINGS: Tubes, catheters and devices: There is a dual-lead AICD with leads positioned in the right atrium and right ventricle. Pulmonary arteries: The pulmonary arteries are adequately opacified for evaluation to the subsegmental level. There is no filling defect to suggest embolism. Great vessels off aortic arch: Visible portions of great vessels are normal. Aorta: The ascending aorta is dilated measuring up to 4.3 x 4.1 cm in the distal ascending region. The aortic root is nondilated. The aortic sinus measures 3.2 cm diameter and proximal ascending aorta measures 3.1 cm diameter. There is mild aortic atherosclerotic disease. No aortic dissection. Lungs: Mild mosaic perfusion in the upper lungs. There is consolidation and volume loss in the anterior inferior right upper lobe. Mild diffuse central bronchial wall thickening. Mild ill-defined ground-glass opacity in the lower lungs bilaterally. Pleural spaces: Trace simple right pleural effusion. No pneumothorax. Heart: There is moderate cardiac enlargement. There is asymmetric hypertrophy of left ventricle. There is focal myocardial thinning without aneurysm at the left ventricular apex. There is a trace pericardial effusion. Lymph nodes: Mildly prominent nonspecific mediastinal lymph nodes. Few calcified lymph nodes in the mediastinum. Bones/joints: Bones are unremarkable. Soft tissues: The extrathoracic soft tissues are unremarkable. PROCEDURE INFORMATION: Exam: CT Abdomen And Pelvis With Contrast Exam date and time: 03/27/2024 2:59 PM Age: 68 years old Clinical indication: Patient HX: Dyspnea/tachycardia, pancreatitis; Severe back pain questionable pe vs dissection TECHNIQUE: Imaging protocol: Computed tomography of the abdomen and pelvis with contrast. Radiation optimization: All CT scans at this facility use at least one of these dose optimization techniques: automated exposure control; mA and/or kV adjustment per patient size (includes targeted exams where dose is matched to clinical indication); or iterative reconstruction. Contrast material: OMNI 350; Contrast volume: 125 ml; Contrast route: INTRAVENOUS (IV); COMPARISON: CT abdomen pelvis w con* [id number] 03/14/2024 12:15 PM RADIATION DOSE METRICS: Total DLP (mGy-cm): 1015.18 FINDINGS: Liver: The liver is normal. Moderate to severe diffuse intrahepatic and extrahepatic biliary dilation. Gallbladder and biliary ducts: The cystic duct stump is dilated. Common hepatic duct measures 18 mm diameter. Cystic duct 8 mm, and proximal common bile duct 9 mm. Distal common bile duct measures 7 mm. No biliary stones are seen. Pancreas: There is a moderate volume of water density free fluid in the right upper quadrant filling the right renal fossa and surrounding the pancreatic head and proximal duodenum. There is marked pancreatic and peripancreatic edema involving the head, neck and proximal body. The pancreatic tail is mildly atrophic and relatively spared. Pancreatic parenchymal enhancement pattern is normal. No pancreatic duct dilation. No visible pancreatic or bile duct stones. No sign of pancreatic hemorrhage. No organized fluid collection. Spleen: The spleen is unremarkable. Adrenal glands: Developmentally abnormal linear right adrenal gland. Left adrenal gland is unremarkable. 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 Right renal fossa is empty. Renal parenchymal enhancement is normal with the exception of mild cortical scarring at the lower pole. There is no hydronephrosis or stones. Stomach and bowel: The stomach is nondistended, limiting assessment of wall thickness. The small bowel is nondilated. The colon is unremarkable. Appendix: The appendix is not visible. Intraperitoneal space: There is a small volume simple intraperitoneal free fluid in pelvis. No intraperitoneal free air. There is mesenteric edema in the right upper abdomen. No intraperitoneal free air. Retroperitoneal space: There is fluid and edema in the anterior retroperitoneal inter fascial space. Vasculature: There is mild aortic atherosclerotic disease. There is no aortic dissection or aneurysm. The portal, splenic and superior mesenteric veins are patent. Lymph nodes: There is a solitary prominent distal retroperitoneal lymph node measuring 11 mm short axis on series 6, image 39. No other lymph node enlargement in the retroperitoneum, mesentery, pelvis, or natalia hepatis. Urinary bladder: The urinary bladder is unremarkable. Reproductive: The uterus is absent. There is no adnexal mass or large cyst. Bones/joints: There is moderate degenerative disease in the lumbar spine. The pelvis and hips are unremarkable. Soft tissues: The abdominal wall is intact. There is laxity of the pelvic floor. CT/CT angio chest w abd pel w con IMPRESSION: 1. No pulmonary embolism. 2. Consolidation and volume loss in the anterior inferior right upper lobe. Possible atelectasis and/or infection. 3. Mild diffuse central bronchial wall thickening and ground-glass opacity in the lower lungs suggests pulmonary edema. 4. No aortic dissection. Dilated ascending thoracic aorta. Recommend clinical assessment and follow-up. 5. Trace simple right pleural effusion. 6. Incidental findings above. IMPRESSION: 1. Acute interstitial edematous pancreatitis. No sign of necrosis or hemorrhage. No sign of pancreatic duct obstruction. No biliary or pancreatic duct stones. 2. Mild ascites. No organized fluid collection. No sign of significant intraperitoneal bleeding. 3. Moderate to severe diffuse biliary dilation is stable since 11/21/2019 and may be related to reservoir fract from prior cholecystectomy. Distal common bile duct obstruction is not excluded. No stones are seen. Correlate with liver function tests. 4. 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 5. Incidental findings above.
[2024-03-27] MEDS: amiodarone 150 MG/100 ML PREMIX 400 MG IV (14:42)
[2024-03-27] MEDS: iohexol 350 mg/mL 500 mL Btl (per mL) IV (15:05)
--- NOTE | 2024-03-27 15:11 | ECG_ITS ---
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
[2024-03-27 15:29] LABS: Reflex Lactate Order REFLEX LACTIC ORDERD
[2024-03-27] MEDS: ondansetron 2 mg/ML SDV 2 mL 4 MG IVP (15:51)
[2024-03-27] MEDS: morphine 4 mg/mL SDV 1 mL IVP ×2 (15:51→19:48)
[2024-03-27] MEDS: metroNIDAZOLE IV 500 MG/100 ML PREMIX 100 MG IV (15:58)
[2024-03-27 16:05] LABS: Troponin 5 2HR 28.82 ng/L (0-10)
[2024-03-27 16:06] LABS: Troponin 5 2HR Delta -11.18 ABS# (0-10)
[2024-03-27 16:39] LABS: Bilirubin Urine Negative (Negative); Blood Urine Negative (Negative); Glucose Urine UA Negative (Normal); Ketones Urine Negative (Negative); Leukocyte Esterase Urine Negative (Negative); Nitrate Urine Negative (Negative); Protein Urine 2+ (Negative); Urine Appearance Clear (CLEAR); Urine Color Yellow (Yellow); Urobilinogen Urine 0.2 mg/dL (Negative); pH Urine 6.5 (5-7)
[2024-03-27 16:46] LABS: Add Urine Microscopic? YES; Bacteria Urine None Seen /hpf; Hyaline Casts Urine 17.37 /lpf; RBC Urine 0-2 /hpf (0-2); Squamous Epithelial Cell Urine 0-5 /hpf (0-5)
[2024-03-27 17:18] LABS: Coarse Granular Casts Urine RARE /lpf; Specific Gravity, Urine 1.036 (1.005-1.030)
--- NOTE | 2024-03-27 17:28 | USR_ITS ---
PROCEDURE INFORMATION: Exam: US Abdomen; Limited Exam date and time: 03/27/2024 6:18 PM Age: 68 years old Clinical indication: Other: F/u CT = dilated biliary; Prior surgery; Surgery date: 6+ months; Surgery type: Cholecystectomy and possibly excision of some form of liver cancer patient is a poor historian. ; Additional info: Abnormal CT ruq duct, pancreatitis TECHNIQUE: Imaging protocol: Real time ultrasound of the abdomen with image documentation. Limited exam focused on the region of clinical interest. COMPARISON: CT angio chest w abd pel w con 03/27/2024 2:59 PM FINDINGS: Liver: The liver is normal in size with no mass. Normal portal vein. Gallbladder: History of cholecystectomy. Biliary ducts: Mildly prominent intrahepatic bile ducts and a prominent common hepatic duct measuring about 1.7 cm in diameter. The common bile duct tapers to about 8 mm distally. No definite filling defects or mass within the ducts. Findings correlate with the CT. Pancreas: The pancreas was obscured by overlying bowel gas. Right kidney: The right kidney is not visualized. Left kidney: The left kidney measures 15.3 x 5.3 x 4.4 cm. No mass or hydronephrosis. Spleen: Normal. Other findings: Aorta and inferior vena cava are normal as visualized. US/US abdomen complete* [id number] IMPRESSION: 1. Prominent bile ducts as described above. 2. Absent right kidney. Prominent left kidney. 3. The pancreas was obscured.
[2024-03-27 17:48] LABS: Lactic Acid level (Lactate) 1.3 mmol/L (0.5-2.2)
--- NOTE | 2024-03-27 18:55 | PM.HP ---
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 She has been having some cough. She had vomiting. She had a fall about 3 weeks ago. In the last week she has become generally weak, came to ER with some disorientation, lethargy, back pain, right upper quadrant pain. With severe tachycardia on presentation. EKG with atrial flutter/tachycardia, she received Cardizem push, but without response, started on amiodarone drip. A dose of metoprolol was tried as well. Heart rate remains at 144 bpm. She is noted tachypneic at 31 resp or minute, WBC 23.19. Neutrophils 20.52. With mild hyperkalemia 5.3, DONELL creatinine 1.6, BUN 29, bicarb 17, anion gap 20.3. Lactic acid 2.5. Baseline troponin 40, 2-hour troponin 29. Lipase elevated 251. Urinalysis with 11-20 WBC. Hyaline casts. Coarse granular casts. CT chest abdomen pelvis without PE, with consolidation and volume loss in the anterior inferior right upper lobe, possible atelectasis versus infection. Mild diffuse central bronchial wall thickening and groundglass opacity in the lower lungs suggesting pulmonary edema. No aortic dissection, dilated ascending thoracic aorta, with recommended clinical assessment and follow-up. Trace simple right pleural effusion. Additional incidental findings. In the abdomen finding of acute interstitial edematous pancreatitis. No sign of necrosis or hemorrhage. No sign of pancreatic duct obstruction. No biliary or pancreatic duct stones. Noted moderate to severe diffuse biliary dilation stable since 11/21/2019 possibly related to reservoir tract from prior cholecystectomy. Distal CBD obstruction is not excluded. Mild ascites noted. 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 Additional incidental findings. She received sepsis bolus, blood cultures were collected, she received a dose of Levaquin and Flagyl. On reassessment lactic acid down to 1.3. Review of Systems General: Reports: ROS unobtainable due to mental status Const: Reports: change in appetite, fatigue and other (Generalized weakness. Fall 3 weeks ago.) GI: Reports: vomiting Musc: Reports: back pain (Chronic low back pain) Medications/Allergies Home Medications Medication Instructions Recorded Confirmed Last Taken Type apixaban 5 mg tablet (Eliquis) 5 mg PO BID 08/01/19 03/14/24 03/14/24 History dorzolamide 2 % eye drops 1 drp ophthalmic (eye) TID 04/20/21 03/14/24 03/14/24 History furosemide 20 mg tablet 20 mg PO DAILY #5 tabs 05/27/23 03/14/24 03/14/24 Rx diltiazem HCl 120 mg capsule,24 120 mg PO DAILY 01/31/24 03/14/24 Unknown History hr,extended release (Tiadylt ER) hydralazine 25 mg tablet 25 mg PO TID 01/31/24 03/14/24 03/14/24 History levothyroxine 50 mcg capsule 75 mcg PO DAILY 01/31/24 03/14/24 03/14/24 History diltiazem HCl 240 mg capsule,24 240 mg PO DAILY 03/14/24 03/14/24 03/14/24 History hr,extended release (Tiadylt ER) ondansetron 8 mg disintegrating 8 mg PO Q6H #14 tabs 03/14/24 Unknown Rx tablet Allergies Allergy/AdvReac Type Severity Reaction Status Date / Time orange juice Allergy Intermediate ADR-Vomitin Verified 01/31/24 14:24 g potassium Allergy Intermediate sick in Verified 01/31/24 14:24 the stomach amoxicillin Allergy unk Verified 01/31/24 14:24 buspirone Allergy unk Verified 01/31/24 14:24 hydralazine Allergy coughing Verified 01/31/24 14:24 and nausea Penicillins Allergy shortness Verified 01/31/24 14:24 of breath povidone-iodine Allergy unk Verified 01/31/24 14:24 [From Betadine] soap [From Betadine] Allergy unk Verified 01/31/24 14:24 Woupvqc-PAD-LrU Reductase Allergy FLu like Verified 01/31/24 14:24 Inhibitor symptoms [Etljgri-Cos-Oxw Reductase Inhibitor] carvedilol AdvReac Severe cough Verified 01/31/24 14:24 amlodipine AdvReac BLE edema Verified 01/31/24 14:24 valsartan AdvReac unknown Verified 01/31/24 14:24 PFSH Acute PFSH: Medical History Chest pain Peripheral neuropathy Glaucoma Herpes genitalis 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 Brother CAD (coronary artery disease) Brother , 2 brothers of heart disease CAD (coronary artery disease) Denies family history of Diabetes Clotting disorder Dementia Hyperlipidemia Psychiatric illness Chronic kidney disease (CKD) Suicide Anesthesia complication Bleeding disorder Family history of premature coronary artery disease Lung disease Cancer Hypertension Stroke Social History Smoking and tobacco/nicotine status: current every day tobacco/nicotine user Alcohol intake: never Substance/Drug Use: never Vitals/I&O/Wt Last Vital Signs Temp 98.9 F 03/27/24 13:06 Pulse 144 H 03/27/24 17:15 Resp 31 H 03/27/24 17:15 BP 121/94 03/27/24 17:15 Pulse Ox 92 03/27/24 17:15 O2 Del Method Room Air 03/27/24 13:06 03/27/24 03/27/24 03/27/24 06:59 14:59 22:59 Intake Total 9.417 / 9.417 Balance 9.417 / 9.417 Weight last 48 hrs Weight 79.379 kg Physical Exam Narrative: Accompanied by her daughter and son-in-law. Ill-appearing. Const: GENERAL APPEARANCE: cooperative ORIENTATION/CONSCIOUSNESS: Yes lethargic HENMT: COMMON NORMALS: oropharynx normal Neck/C-Spine: COMMON NORMALS: no JVD Resp: EFFORT & INSPECTION: Yes tachypneic AUSCULTATION: rhonchi Cardio: COMMON NORMALS: no JVD, regular rhythm, S1 normal heart sound present, S2 normal heart sound present and No murmurs present (Cardio) RATE: tachycardic RHYTHM: abnormal rhythm irregularly irregular HEART SOUNDS: S1 normal heart sound present and S2 normal heart sound present GI: COMMON NORMALS: Normal to inspection, nondistended, normoactive bowel sounds present and Soft to palpation PALPATION: Yes Soft to palpation and Yes Tenderness to palpation present (GI) Details: RUQ Extremity: COMMON NORMALS: no joint enlargement and no pedal edema Neuro: COMMON NORMALS: moves all extremities SENSORIUM/ORIENTATION: Yes alert Skin: COMMON NORMALS: no rashes or lesions noted GENERAL SKIN EXAM: no rashes or lesions noted Urinary Catheter Management: Ramirez: Cath Placed During This Visit: yes Urinary Catheter Date of Insertion: 03/27/24 Sepsis: Is patient septic: Yes Focused sepsis exam performed: Yes Focused sepsis exam: Persistent encephalopathy, good cap refill. Persistent tachycardia. Date exam was performed: 03/27/24 Time exam was performed: 18:45 Data 03/27/24 13:32 03/27/24 13:32 Micro: Microbiology 03/27/24 13:30 Blood Culture - Preliminary Blood SPECIMEN COLLECTED 03/27/24 13:32 Blood Culture - Preliminary Blood SPECIMEN COLLECTED A&P Assessment and plan (1) Sepsis: Sepsis with leukocytosis 23.19, tachycardia, tachypnea 31, lactic acid elevated at 2.5, with DONELL, BUN 29, creatinine 1.6, hyperkalemia 5.3, with acute encephalopathy. Reviewed vitals, CBC, ABG, CMP, lipase, UA, CT chest abdomen pelvis, ER provider note, discussed with ER provider. Discussed with patient and family at bedside. Blood cultures have been collected, she was given sepsis fluid bolus, received a dose of Levaquin and Flagyl. Noted several possible sources, including pneumonia, although she is on room air. However, also noted lipase elevation, CBD dilation, with history of gallbladder malignancy, cholecystectomy, partial liver resection, currently with right upper quadrant tenderness, elevated lipase and pancreatitis, encephalopathy and sepsis, concern for possible developing cholangitis type picture. At the same time her liver parameters are not elevated. Reviewed prior CT, she has had some dilation of common bile duct going back to 2019 with ERCP recommended at that time. On current CT obstruction cannot be excluded. Liver ultrasound has been obtained stat in ER and results are pending. As per discussion with patient and family and ER physician, ER provider will reach out to GI specialist with the above concerns with her presentation and depending on ultrasound findings. Depending on findings and discussion for consideration may be given to transfer to higher level care facility for further assessment by gastroenterology and ERCP. Discussed with cytotechnologist/cytology supervisor. In the meantime antibiotics are started and will continue, in case she does end up staying here continue treatment with antibiotics for pneumonia, and with coverage for possible intra-abdominal infection. Continue Levaquin, Flagyl. Follow-up blood cultures. Continue to optimize heart rate. Reassess kidney injury. Reorient. Reassess pancreatitis. Continue gentle IV hydration for now. Monitor for risk of fluid overload. (2) Pancreatitis: Acute interstitial edematous pancreatitis noted on CT, lipase elevated up to 251. Noted CBD dilation on CT. No visible stone, but distal CBD obstruction not excluded. Ultrasound is obtained and pending. As per discussion with patient and family and ER physician consideration of possible transfer depending on ultrasound and discussion with GI with concern of possibly obstructive pancreatitis with history of gallbladder cancer, Cholecystectomy, partial Liver resection. With presentation with sepsis, right upper quadrant pain, CBD and intrahepatic bile duct dilation, pancreatitis with lipase elevation without stone, possible stricture or recurrence of malignancy, may benefit from assessment by gastroenterology at a higher level care facility. Depending on ultrasound results and discussion with specialist, in case continuing care here, continue with bowel rest, IV hydration, IV morphine for pain control, Zofran. Reassess lipase. Qualifiers: Acute pancreatitis complication: no infection or necrosis Chronicity: acute Pancreatitis type: unspecified pancreatitis type Qualified Code(s): K85.90 - Acute pancreatitis without necrosis or infection, unspecified (3) Dilated cbd, acquired: Additional assessment with ultrasound as above. Past history of gallbladder cancer, resection and partial liver resection. Prior CT on review back in 2019 with dilated CBD, recommended ERCP. Currently CBD and intrahepatic bile dilation. With right upper quadrant pain. With pancreatitis with lipase elevation. Somewhat difficult to reconcile is her liver numbers are not elevated. Pending liver ultrasound. (4) Right upper lobe pneumonia: Community-acquired pneumonia. Levaquin. Obtain sputum cultures, urine bacterial antigens. Obtain MRSA PCR. Possible aspiration pneumonia after vomiting. Monitor oxygenation. Qualifiers: Pneumonia type: due to unspecified organism Qualified Code(s): J18.9 - Pneumonia, unspecified organism (5) Atrial fibrillation with rapid ventricular response: Difficult to control atrial fibrillation with RVR so far unresponsive to Cardizem push, metoprolol push, Cardizem drip. Started on amiodarone drip. Reviewed potassium, magnesium. Not low. Complete troponin EKG series. Continue anticoagulation, will switch to Lovenox while here. (6) Acute encephalopathy: Acute metabolic encephalopathy with sepsis, pneumonia, acute pancreatitis, possible intra-abdominal infection, DONELL. Treat underlying causes as above. Reorient. (7) Hyperkalemia: Potassium up to 5.3. With DONELL. Received fluid resuscitation. Recheck potassium level. (8) DONELL (acute kidney injury): Associated with sepsis. Overall her 's blood been good over the last week. Suspect poor oral intake, dehydration as well prerenal kidney injury. Possible ATN. With hyperkalemia. With metabolic acidosis, anion gap 20.3, bicarb 17. Potassium 5.3. Received fluid challenge. Monitor intake and output. Recheck potassium level. Plan Possible UTI: 11-20 WBC on UA. No evidence of obstructive uropathy on CT. AntiBac treatment as above with Levaquin. Follow-up urine culture. Attestations Medical Necessity Statement*: Admission over 2 midnights anticipated for assessment and management of sepsis, pneumonia, possible intra-abdominal infection, difficult to control A-fib with RVR, DONELL, encephalopathy, UTI in a lady with past history of gallbladder cancer and liver resection. and High Time for a total of 85 minutes, includes reviewing past or interval history, examining/interviewing patient, placing orders, counseling patient/family/other support, discussing plan of care with staff, communicating with other healthcare providers, documenting encounter and coordinating care Diagnoses Sepsis A41.9 Pancreatitis K85.90 Acute pancreatitis complication: no infection or necrosis Chronicity: acute Pancreatitis type: unspecified pancreatitis type Dilated cbd, acquired K83.8 Right upper lobe pneumonia J18.9 Pneumonia type: due to unspecified organism Atrial fibrillation with rapid ventricular response I48.91 Acute encephalopathy G93.40 Hyperkalemia E87.5 DONELL (acute kidney injury) N17.9
[2024-03-27] MEDS: metoprolol tartrate 1 mg/1 mL SDV 5 mL 5 MG IVP (19:53)
[2024-03-27 20:00] LABS: Troponin 5 6HR 39.74 ng/L (0-10)
[2024-03-27 20:02] LABS: Troponin 5 6HR Delta -0.26 ng/L (0-12)
[2024-03-27] MEDS: pantoprazole 40 mg SDV IVP (21:35)
[2024-03-27] MEDS: enoxaparin 80 mg/0.8 mL Syringe SUBCUT (21:37)
[2024-03-27] MEDS: ondansetron 4 MG Tablet 8 MG PO (21:41)
--- NOTE | 2024-03-27 21:46 | ECG_ITS ---
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 Measurements Intervals [employer] Rate: 137 P: -8 AL: 175 QRS: 15 QRSD: 153 T: 218 QT: 315 QTc: 477 Interpretive Statements Possible atrial flutter with 2:1 AV block INTRAVENTRICULAR CONDUCTION DELAY [130+ ms QRS DURATION] Compared to ECG 03/27/2024 15:11:03 Atrial flutter no longer present Electronically Signed On 03-28-2024 22:44:22 CDT by Ida Phipps M.D. [email or web address]
[2024-03-27] MEDS: dorzolamide 2% Op Soln 10 mL Btl 1 DROP EYE-BOTH (21:52)
[2024-03-27 22:46] LABS: Influenza A NEGATIVE (Negative); Influenza B NEGATIVE (Negative); Respiratory Syncytial Virus Ce NEGATIVE (Negative)
[2024-03-27 22:55] LABS: Covid PCR Positive (Negative)
[2024-03-27 23:18] LABS: MRSA PCR OZH (swab) NOT DETECTED (Not Detecte)
[2024-03-28] VITALS (18 sets, daily range): BP systolic 103–154; BP diastolic 75–110; PULSE 65–142; RESP 15–28; TEMP 36.4–37.2; O2SAT 88–98; BMI 26.8
[2024-03-28] MEDS: morphine 4 mg/mL SDV 1 mL IVP ×2 (00:24→09:53)
[2024-03-28] MEDS: dexamethasone 10 mg/mL INJ 6 MG IVP (00:27)
[2024-03-28] MEDS: metroNIDAZOLE IV 500 MG/100 ML PREMIX 100 MG IV ×3 (00:32→17:43)
[2024-03-28 00:49] LABS: Potassium 4.7 mmol/L (3.5-5.1)
[2024-03-28] MEDS: ondansetron 4 MG Tablet 8 MG PO (05:17)
[2024-03-28 05:42] LABS: Basophils % 0.2 %; Hematocrit 42.8 % (36-47); Lymphocytes # 0.7 10^3/uL (0.8-4.8); Lymphocytes % 3.6 %; Mean Corpuscular HGB Conc 29.7 g/dL (30-55); Mean Corpuscular Volume 77.5 fl (85-98); Mean Platelet Volume 10.6 fL (7.4-10.4); Monocytes # 0.8 10^3/uL (0.2-0.9); Monocytes % 3.8 %; Neutrophils # 18.59 10^3/uL (1.8-7.7); Neutrophils % 91.9 %; Nucleated Red Blood Cells % 0 %; Platelet Count 333 10^3/cmm (157-399); Red Blood Count 5.52 10^6/uL (3.85-5.65); Red Cell Distribution Width 18.9 % (12.1-15.1); White Blood Count 20.23 10^3/uL (3.29-11.43)
[2024-03-28 06:08] LABS: Alanine Aminotransferase 12 U/L (0-33); Albumin Level 2.9 g/dL (3.5-5.2); Alkaline Phosphatase 86 U/L (35-105); Anion Gap 15.7 (5-19); Aspartate Amino Transferase 16 U/L (0-32); Blood Urea Nitrogen 34 mg/dL (8-23); Calcium 8.2 mg/dL (8.5-10.5); Carbon Dioxide 19 mmol/L (22-29); Chloride 110 mmol/L (98-107); Creatinine Clr Calc Pharmacy 38.0308; Globulin 3.1 g/dL (1.3-4.6); Glomerular Filtration Rate 34.4 mL/min (90-130); Glucose 102 mg/dL (65-115); Lipase 109 U/L (13-60); Osmolality Calculated 298 mOsm/kg (285-295); Potassium 4.7 mmol/L (3.5-5.1); Sodium 140 mmol/L (136-145); Total Bilirubin 0.2 mg/dL (0.15-1.2)
[2024-03-28] MEDS: levothyroxine 75 mcg Tablet PO (09:14)
[2024-03-28] MEDS: dilTIAZem ER (24HR) 120 mg Capsule PO (09:14)
[2024-03-28] MEDS: dorzolamide 2% Op Soln 10 mL Btl 1 DROP EYE-BOTH ×3 (09:14→20:30)
[2024-03-28] MEDS: enoxaparin 80 mg/0.8 mL Syringe SUBCUT ×2 (09:15→20:35)
--- NOTE | 2024-03-28 09:34 | PC.CHAP ---
Pastoral Care Encounter/Spiritual Assessment Type of Contact [] Declined optician apprentice visit [] Patient/Family/Request visit [] Outpatient visit [] Follow-up visit [] Physician referral [] Code/Alert [] Routine visit [] Staff referral [] Actively dying [] Patient sleeping [] Family support [] [] Out of room [] Palliative care [] [] Receiving care in room [] Pre-surgical visit [] Trauma [] Long length of stay [] ICU visit [x] Other:Contact precautions. No visit. Relational/Emotional Strength [] Patient feels connected with others/family/visitors/staff [] Distress [] Loneliness/isolation [] Abandonment Spirituality of Patient [] Person of Tana [] Attends Taoist of their Tana [] Believes in Prayer [] Reads Bible or Church materials [] There are Spiritual issues to be addressed Rail Equipment Operator Interventions [] Prayer [] Active listening [] Non-anxious presence [] Spiritual/emotional support [] Crisis/trauma care [] Spiritual counseling [] Bereavement support [] Provided bereavement packet [] Provided Bible/devotional materials [] Provided toy/stuffed animal, coloring book to patient or family member [] Provided Communion [] Anointing/[place] [] Salvation [] Completed spiritual assessment [] Other: Impact on Illness or Injury [] Angry [] Fearful [] Anxious [] Often cries [] Exhaustion [] Unable to work [] Unable to attend zoroastrian [] Unable to walk/stand [] Unable to read [] Unable to drive [] Unable to eat/drink [] Unable to sleep [] Unable to be with family [] Patient intubated [] Other: Summary Time spent with patient
--- NOTE | 2024-03-28 09:35 | PC.SOCIAL ---
IMM Update Pg. 2 of IMM updated and reviewed with patient, who verbalized understanding. Copy provided.
--- NOTE | 2024-03-28 12:49 | P.PN_ITS ---
Subjective 2 Subjective: She feels slightly better. Abdominal pain is still there but has let up slightly. No further vomiting. No diarrhea. No headache. Vitals/I&O/Wt Last Vital Signs Temp 98.4 F 03/28/24 12:00 Pulse 142 H 03/28/24 12:00 Resp 17 03/28/24 12:00 BP 142/107 03/28/24 12:00 Pulse Ox 91 03/28/24 12:00 O2 Del Method Room Air 03/28/24 12:00 O2 Flow Rate 4 03/27/24 21:00 03/27/24 03/28/24 03/28/24 22:59 06:59 14:59 Intake Total 2931.37 / 2940.787 100 / 3040.787 100 / 100 Output Total 700 / 700 300 / 1000 Balance 2231.37 / 2240.787 -200 / 2040.787 100 / 100 Weight last 48 hrs Weight 77.746 kg Weight 77.746 kg Weight 77.678 kg Weight 79.379 kg Physical Exam 2 Narrative: Ill-appearing. Const: COMMON NORMALS: patient oriented x3 and alert GENERAL APPEARANCE: c ooperative and lethargic ORIENTATION/CONSCIOUSNESS: Yes lethargic HENMT: COMMON NORMALS: oropharynx normal Neck/C-Spine: COMMON NORMALS: no JVD Resp: COMMON NORMALS: normal respiratory effort and clear to auscultation bilaterally EFFORT & INSPECTION: Yes tachypneic AUSCULTATION: clear to auscultation bilaterally and rhonchi Cardio: COMMON NORMALS: no JVD, regular rhythm, S1 normal heart sound present, S2 normal heart sound present and No murmurs present (Cardio) RATE: t achycardic RHYTHM: regular rhythm and abnormal rhythm irregularly irregular HEART SOUNDS: S1 normal heart sound present and S2 normal heart sound present GI: COMMON NORMALS: Normal to inspection, nondistended, normoactive bowel sounds present and Soft to palpation PALPATION: Yes Soft to palpation and Yes Tenderness to palpation present (GI) Extremity: COMMON NORMALS: no joint enlargement and no pedal edema Neuro: COMMON NORMALS: patient oriented x3 and moves all extremities S ENSORIUM/ORIENTATION: Yes alert and Yes lethargic Skin: COMMON NORMALS: no rashes or lesions noted GENERAL SKIN EXAM: no rashes or lesions noted Urinary Catheter Management: Ramirez: Cath Placed During This Visit: yes Reason for Continuing Indwelling Catheter: Accurate Measurement of Urinary Output in Critically Ill Patients Urinary Catheter Date of Insertion: 03/27/24 Data 03/28/24 04:39 03/28/24 04:39 Micro: Microbiology 03/27/24 15:26 Legionella Urinary Antigen - Final Urine Catheterized 03/27/24 13:30 Blood Culture - Preliminary Blood SPECIMEN COLLECTED 03/27/24 13:32 Blood Culture - Preliminary Blood SPECIMEN COLLECTED A&P Assessment and plan (1) Sepsis: Reviewed vitals, CBC, CMP, viral panel, positive for coronavirus. Reviewed blood culture, urine Legionella antigen, MRSA PCR. Started on treatment for severe COVID-19. Continue antibiotic for superimposed secondary bacterial pneumonia. Possible UTI. Follow-up cultures. Reviewed lactic acid, showed improvement down to 1.3. Reviewed ER note as per discussion with GI provider, low likelihood of acutely contributing hepatobiliary pathology. Continue Levaquin and Flagyl. Follow-up cultures. Repeat blood counts. Monitor vitals. Discussed with nursing, caser shoe parts. If showing improvement we will progress assessment with PT. Given severity of illness may require rehabilitation. (2) Pancreatitis: She is still having abdominal pain but it is a touch better. Reviewed lipase, down to 109. Repeat lipase level. Continue IV morphine for pain which she is still needed this morning, Zofran as needed for nausea. So far no additional vomiting. Reviewed ER note as per discussion with GI provider, likelihood of acute intubation of hepatobiliary problem. Repeat liver parameters. Depending on ultrasound results and discussion with specialist, in case continuing care here, continue with bowel rest, IV hydration, IV morphine for pain control, Zofran. Reassess lipase. Qualifiers: Acute pancreatitis complication: no infection or necrosis Chronicity: a cute Pancreatitis type: unspecified pancreatitis type Qualified Code(s): K 85.90 - Acute pancreatitis without necrosis or infection, unspecified (3) COVID-19: Severe COVID-19 requiring 4 L nasal cannula oxygen. With tachypnea, tachycardia, malaise, vomiting, acute pancreatitis. DONELL. Overnight started on dexamethasone. Will add remdesivir. Check D-dimer. Continue anticoagulation. Continue oxygen support, wean down as tolerating. (4) Atrial fibrillation with rapid ventricular response: Difficult to control atrial flutter with RVR. Did not respond to Cardizem, metoprolol yesterday. Was started on amiodarone drip. Heart rate still 142. Restart Cardizem drip. Monitor for risk of hypotension, bradycardia. Continue amiodarone. Treat underlying conditions. Continue anticoagulation, will switch to therapeutic Lovenox while here. Monitor for risk of bleeding. (5) Dilated cbd, acquired: Reviewed ultrasound, reviewed ER note, discussion with GI provider. Not suspected to be acutely contributing to her presentation including pancreatitis. Liver parameters remain normal. Reassess LFTs. Additional assessment with ultrasound as above. Past history of gallbladder cancer, resection and partial liver resection. Prior CT on review back in 2019 with dilated CBD, recommended ERCP. Currently CBD and intrahepatic bile dilation. With right upper quadrant pain. With pancreatitis with lipase elevation. Somewhat difficult to reconcile is her liver numbers are not elevated. Pending liver ultrasound. (6) Right upper lobe pneumonia: Reviewed vitals, CBC, urine Legionella antigens. Community-acquired pneumonia. Continue Levaquin. Nasal MRSA, negative. Obtain sputum cultures, urine bacterial antigens. Obtain MRSA PCR. Possible aspiration pneumonia after vomiting. Monitor oxygenation. Qualifiers: Pneumonia type: due to unspecified organism Qualified Code(s): J18.9 - Pneumonia, unspecified organism (7) Acute encephalopathy: Improving. Continue to treat underlying conditions. Reorient. Acute metabolic encephalopathy with sepsis, pneumonia, acute pancreatitis, possible intra- abdominal infection, DONELL. (8) Hyperkalemia: Improved, potassium down to 4.7. With DONELL. Recheck renal function. Repeat potassium. (9) DONELL (acute kidney injury): Mild improvement creatinine from 1.6-1.5. Hold Lasix for now. Treat sepsis. Associated with sepsis. Overall her 's blood been good over the last week. Suspect poor oral intake, dehydration as well prerenal kidney injury. Possible ATN. With hyperkalemia. With metabolic acidosis, anion gap 20.3, bicarb 17. Potassium 5.3. Received fluid challenge. Monitor intake and output. Recheck potassium level. Plan Possible UTI: 11-20 WBC on UA. No evidence of obstructive uropathy on CT. AntiBac treatment as above with Levaquin. Follow-up urine culture. Attestations 2 Medical Necessity Statement*: Continue admission for assessment and management of sepsis, pneumonia, COVID-19, possible intra-abdominal infection, difficult to control A-fib with RVR, DONELL, encephalopathy, UTI in a lady with past history of gallbladder cancer and liver resection. Diagnoses Sepsis A41.9 Pancreatitis K85.90 Acute pancreatitis complication: no infection or necrosis Chronicity: acute Pancreatitis type: unspecified pancreatitis type COVID-19 U07.1 Atrial fibrillation with rapid ventricular response I48.91 Dilated cbd, acquired K83.8 Right upper lobe pneumonia J18.9 Pneumonia type: due to unspecified organism Acute encephalopathy G93.40 Hyperkalemia E87.5 DONELL (acute kidney injury) N17.9
--- NOTE | 2024-03-28 13:09 | PC.NURSE ---
Provider want nursing staff to restart the cardizem drip along with the amio drip. Also she tested positive for COVID 10 days ago at [facility]. Provider order to continue the remdesivir.
[2024-03-28] MEDS: dilTIAZem 100 MG in sodium chloride 0.9% (add-van) 100 ML 12.5 MG IV ×2 (13:31→20:35)
[2024-03-28] MEDS: HYDROmorphone 1 mg/mL INJ 1 mL 0.5 MG IVP (13:32)
[2024-03-28] MEDS: remdesivir 200 MG in sodium chloride 0.9% (100 ml) 60 ML 100 MG IV (14:54)
[2024-03-28] MEDS: pantoprazole 40 mg SDV IVP (20:30)
[2024-03-29] VITALS (15 sets, daily range): BP systolic 121–153; BP diastolic 64–115; PULSE 67–120; RESP 21–31; TEMP 33.8–36.9; O2SAT 90–96
[2024-03-29] MEDS: metroNIDAZOLE IV 500 MG/100 ML PREMIX 100 MG IV ×3 (00:22→18:13)
[2024-03-29] MEDS: dexamethasone 10 mg/mL INJ 6 MG IVP (00:22)
[2024-03-29 05:40] LABS: Basophils % 0.1 %; Hematocrit 38.3 % (36-47); Lymphocytes # 0.7 10^3/uL (0.8-4.8); Lymphocytes % 4.9 %; Mean Corpuscular HGB Conc 30.5 g/dL (30-55); Mean Corpuscular Hemoglobin 23.5 pg (27-33); Mean Corpuscular Volume 76.9 fl (85-98); Mean Platelet Volume 10.2 fL (7.4-10.4); Monocytes # 0.5 10^3/uL (0.2-0.9); Monocytes % 3.4 %; Neutrophils # 13.27 10^3/uL (1.8-7.7); Neutrophils % 91.1 %; Nucleated Red Blood Cells % 0 %; Platelet Count 320 10^3/cmm (157-399); Red Blood Count 4.98 10^6/uL (3.85-5.65); Red Cell Distribution Width 18.6 % (12.1-15.1); White Blood Count 14.56 10^3/uL (3.29-11.43)
[2024-03-29 06:00] LABS: D Dimer 7.54 ug/mLFEU (0-0.59)
[2024-03-29 06:01] LABS: Alanine Aminotransferase 11 U/L (0-33); Alkaline Phosphatase 120 U/L (35-105); Anion Gap 16.1 (5-19); Aspartate Amino Transferase 18 U/L (0-32); Blood Urea Nitrogen 43 mg/dL (8-23); Calcium 8.6 mg/dL (8.5-10.5); Carbon Dioxide 19 mmol/L (22-29); Chloride 109 mmol/L (98-107); Creatinine Clr Calc Pharmacy 44.1156; Globulin 3.2 g/dL (1.3-4.6); Glomerular Filtration Rate 40.6 mL/min (90-130); Glucose 116 mg/dL (65-115); Lipase 74 U/L (13-60); Osmolality Calculated 302 mOsm/kg (285-295); Potassium 4.1 mmol/L (3.5-5.1); Sodium 140 mmol/L (136-145); Total Bilirubin 0.2 mg/dL (0.15-1.2); Total Protein 6.2 g/dL (6.6-8.7)
[2024-03-29] MEDS: enoxaparin 80 mg/0.8 mL Syringe SUBCUT ×2 (08:56→20:30)
[2024-03-29] MEDS: dorzolamide 2% Op Soln 10 mL Btl 1 DROP EYE-BOTH ×3 (08:57→20:27)
[2024-03-29] MEDS: levofloxacin-dextrose 5 % 750 MG/150 ML PREMIX 100 MG IV (08:57)
[2024-03-29] MEDS: levothyroxine 75 mcg Tablet PO (08:58)
[2024-03-29] MEDS: dilTIAZem ER (24HR) 120 mg Capsule PO (08:58)
--- NOTE | 2024-03-29 15:54 | PC.NURSE ---
Provider is notified that the patient would like to eat today. She has had no nausea or vomiting for 2 days. She has also had no abdominal pain today. Provider placed a diet order. Patient has tolerated ice chips,apple juice, and jello.
--- NOTE | 2024-03-29 16:34 | P.PN_ITS ---
Subjective 2 Subjective: She feels she is improving. She is not having any vomiting. Her appetite has improved and she wants to try oral intake. She has worked with physical therapy. She feels deconditioned. Vitals/I&O/Wt Last Vital Signs Temp 98.5 F 03/29/24 11:11 Pulse 67 03/29/24 14:00 Resp 27 H 03/29/24 11:11 BP 135/85 03/29/24 11:11 Pulse Ox 90 03/29/24 11:11 O2 Del Method Nasal Cannula 03/29/24 11:11 O2 Flow Rate 4 03/27/24 21:00 03/29/24 03/29/24 03/29/24 06:59 14:59 22:59 Intake Total 306.583 / 1158.374 250 / 250 Output Total 600 / 1400 450 / 450 Balance -293.417 / -241.626 -200 / -200 Weight last 48 hrs Weight 78.653 kg Weight 77.746 kg Weight 77.746 kg Weight 77.678 kg Physical Exam 2 Const: COMMON NORMALS: patient oriented x3 and alert GENERAL APPEARANCE: c ooperative and lethargic ORIENTATION/CONSCIOUSNESS: Yes lethargic HENMT: COMMON NORMALS: oropharynx normal Neck/C-Spine: COMMON NORMALS: no JVD Resp: COMMON NORMALS: normal respiratory effort and clear to auscultation bilaterally EFFORT & INSPECTION: Yes tachypneic AUSCULTATION: clear to auscultation bilaterally and rhonchi Cardio: COMMON NORMALS: no JVD, regular rhythm, S1 normal heart sound present, S2 normal heart sound present and No murmurs present (Cardio) RATE: t achycardic RHYTHM: regular rhythm and abnormal rhythm irregularly irregular HEART SOUNDS: S1 normal heart sound present and S2 normal heart sound present GI: COMMON NORMALS: Normal to inspection, nondistended, normoactive bowel sounds present and Soft to palpation PALPATION: Yes Soft to palpation and Yes Tenderness to palpation present (GI) Extremity: COMMON NORMALS: no joint enlargement and no pedal edema Neuro: COMMON NORMALS: patient oriented x3 and moves all extremities S ENSORIUM/ORIENTATION: Yes alert and Yes lethargic Skin: COMMON NORMALS: no rashes or lesions noted GENERAL SKIN EXAM: no rashes or lesions noted Urinary Catheter Management: Ramirez: Cath Placed During This Visit: yes Reason for Continuing Indwelling Catheter: Accurate Measurement of Urinary Output in Critically Ill Patients Urinary Catheter Date of Insertion: 03/27/24 Data 03/29/24 04:59 03/29/24 04:59 Micro: Microbiology 03/27/24 15:26 Bacterial Antigens - Final Urine,Voided 03/27/24 13:30 Blood Culture - Preliminary Blood NEGATIVE TO DATE 03/27/24 13:32 Blood Culture - Preliminary Blood NEGATIVE TO DATE A&P Assessment and plan (1) Sepsis: Improving. Leukocytosis improving. Down to 15. Tachycardia improving, tachypnea improving, down to 21, tachycardia down to 110. Reviewed blood culture, remaining negative. Continue Levaquin and Flagyl. PT assessment. Deconditioned. Discussed with case management. Arrangements for postdischarge rehabilitation. (2) Pancreatitis: Improving pancreatitis. Symptomatically she is feeling Better. No vomiting. Reviewed CMP, lipase. Abdominal pain with improvement. Wants to try oral intake. Ordered diet. Renew IV morphine for breakthrough severe pain. She is still having abdominal pain but it is a touch better. Reviewed lipase, down to 109. Repeat lipase level. Continue IV morphine for pain which she is still needed this morning, Zofran as needed for nausea. So far no additional vomiting. Reviewed ER note as per discussion with GI provider, likelihood of acute intubation of hepatobiliary problem. Repeat liver parameters. Depending on ultrasound results and discussion with specialist, in case continuing care here, continue with bowel rest, IV hydration, IV morphine for pain control, Zofran. Reassess lipase. Qualifiers: Acute pancreatitis complication: no infection or necrosis Chronicity: a cute Pancreatitis type: unspecified pancreatitis type Qualified Code(s): K 85.90 - Acute pancreatitis without necrosis or infection, unspecified (3) COVID-19: Reviewed D-dimer, noted elevated. Continue anticoagulation. Recheck D-dimer level. Continue Decadron, remdesivir. Severe COVID-19 requiring 4 L nasal cannula oxygen. With tachypnea, tachycardia, malaise, vomiting, acute pancreatitis. DONELL. Overnight started on dexamethasone. Will add remdesivir. Check D-dimer. Continue anticoagulation. Continue oxygen support, wean down as tolerating. (4) Atrial fibrillation with rapid ventricular response: Improving heart rate but still A-fib with RVR, although heart rates now down to 90s-100s. Stop amnio drip. Switch to oral Amio. Continue Cardizem. Continue anticoagulation. Treat underlying conditions. Continue anticoagulation, will switch to therapeutic Lovenox while here. Monitor for risk of bleeding. (5) Dilated cbd, acquired: Reviewed ultrasound, reviewed ER note, discussion with GI provider. Not suspected to be acutely contributing to her presentation including pancreatitis. Liver parameters remain normal. Reassess LFTs. Additional assessment with ultrasound as above. Past history of gallbladder cancer, resection and partial liver resection. Prior CT on review back in 2019 with dilated CBD, recommended ERCP. Currently CBD and intrahepatic bile dilation. With right upper quadrant pain. With pancreatitis with lipase elevation. Somewhat difficult to reconcile is her liver numbers are not elevated. Pending liver ultrasound. (6) Right upper lobe pneumonia: Reviewed urine bacterial antigens. Blood culture. Obtain sputum culture. Community-acquired pneumonia. Continue Levaquin. Nasal MRSA, negative. Qualifiers: Pneumonia type: due to unspecified organism Qualified Code(s): J18.9 - Pneumonia, unspecified organism (7) Acute encephalopathy: Improving. Continue to treat underlying conditions. Reorient. Acute metabolic encephalopathy with sepsis, pneumonia, acute pancreatitis, possible intra- abdominal infection, DONELL. (8) Hyperkalemia: Improved. Reviewed potassium. With DONELL. Recheck renal function. Repeat potassium. (9) DONELL (acute kidney injury): Reviewed BUN, creatinine, bicarb, potassium. Improving DONELL. Reassess renal parameters. Hold Lasix for now. Treat sepsis. Associated with sepsis. Overall her 's blood been good over the last week. Suspect poor oral intake, dehydration as well prerenal kidney injury. Possible ATN. With hyperkalemia. With metabolic acidosis, anion gap 20.3, bicarb 17. Potassium 5.3. Received fluid challenge. Monitor intake and output. Plan Possible UTI: 11-20 WBC on UA. No evidence of obstructive uropathy on CT. AntiBac treatment as above with Levaquin. Follow-up urine culture. Attestations 2 Medical Necessity Statement*: Continue admission for assessment and management of sepsis, pneumonia, COVID-19, possible intra-abdominal infection, difficult to control A-fib with RVR, DONELL, encephalopathy, UTI in a lady with past history of gallbladder cancer and liver resection. and High MDM includes amount and/or complexity of data reviewed/ordered [ resulted lab(s)/test(s), ordered lab(s)/test(s) and other healthcare professional discussion] and described risk of complication, morbidity or mortality of management as documented Diagnoses Sepsis A41.9 Pancreatitis K85.90 Acute pancreatitis complication: no infection or necrosis Chronicity: acute Pancreatitis type: unspecified pancreatitis type COVID-19 U07.1 Atrial fibrillation with rapid ventricular response I48.91 Dilated cbd, acquired K83.8 Right upper lobe pneumonia J18.9 Pneumonia type: due to unspecified organism Acute encephalopathy G93.40 Hyperkalemia E87.5 DONELL (acute kidney injury) N17.9
[2024-03-29] MEDS: remdesivir 100 MG in sodium chloride 0.9% (100 ml) 80 ML IV (18:12)
[2024-03-29] MEDS: amiodarone 200 mg Tablet PO (18:13)
[2024-03-29] MEDS: pantoprazole 40 mg SDV IVP (20:27)
[2024-03-30] VITALS (10 sets, daily range): BP systolic 144–188; BP diastolic 102–137; PULSE 90–146; RESP 17–26; TEMP 36.3–36.9; O2SAT 87–96
[2024-03-30] MEDS: dexamethasone 10 mg/mL INJ 6 MG IVP ×2 (00:36→23:58)
[2024-03-30] MEDS: metroNIDAZOLE IV 500 MG/100 ML PREMIX 100 MG IV ×4 (00:37→23:59)
[2024-03-30 05:24] LABS: Basophils % 0.1 %; Eosinophils % 0.1 %; Hematocrit 36.3 % (36-47); Lymphocytes # 0.5 10^3/uL (0.8-4.8); Lymphocytes % 6.1 %; Mean Corpuscular HGB Conc 31.1 g/dL (30-55); Mean Corpuscular Hemoglobin 23.4 pg (27-33); Mean Corpuscular Volume 75.3 fl (85-98); Mean Platelet Volume 10.2 fL (7.4-10.4); Monocytes # 0.4 10^3/uL (0.2-0.9); Monocytes % 4.2 %; Neutrophils # 7.86 10^3/uL (1.8-7.7); Neutrophils % 88.6 %; Nucleated Red Blood Cells % 0 %; Platelet Count 317 10^3/cmm (157-399); Red Blood Count 4.82 10^6/uL (3.85-5.65); Red Cell Distribution Width 18.5 % (12.1-15.1); White Blood Count 8.87 10^3/uL (3.29-11.43)
[2024-03-30 05:46] LABS: D Dimer 3.86 ug/mLFEU (0-0.59)
[2024-03-30 05:52] LABS: Alanine Aminotransferase 9 U/L (0-33); Albumin Level 2.9 g/dL (3.5-5.2); Alkaline Phosphatase 81 U/L (35-105); Anion Gap 15.8 (5-19); Aspartate Amino Transferase 14 U/L (0-32); Blood Urea Nitrogen 48 mg/dL (8-23); Calcium 8.4 mg/dL (8.5-10.5); Carbon Dioxide 18 mmol/L (22-29); Chloride 111 mmol/L (98-107); Creatinine Clr Calc Pharmacy 57.7456; Glucose 116 mg/dL (65-115); Lipase 39 U/L (13-60); Osmolality Calculated 306 mOsm/kg (285-295); Potassium 3.8 mmol/L (3.5-5.1); Sodium 141 mmol/L (136-145); Total Bilirubin 0.2 mg/dL (0.15-1.2); Total Protein 5.9 g/dL (6.6-8.7)
--- NOTE | 2024-03-30 08:03 | PC.SOCIAL ---
IMM Update Pg. 2 of IMM updated. Copy provided at bedside.
[2024-03-30] MEDS: enoxaparin 80 mg/0.8 mL Syringe SUBCUT ×2 (08:46→20:29)
[2024-03-30] MEDS: dorzolamide 2% Op Soln 10 mL Btl 1 DROP EYE-BOTH ×3 (08:46→20:44)
[2024-03-30] MEDS: levothyroxine 75 mcg Tablet PO (08:47)
[2024-03-30] MEDS: amiodarone 200 mg Tablet PO ×2 (08:47→17:09)
[2024-03-30] MEDS: dilTIAZem ER (24HR) 120 mg Capsule PO (08:47)
[2024-03-30] MEDS: levofloxacin-dextrose 5 % 750 MG/150 ML PREMIX 100 MG IV (10:47)
[2024-03-30] MEDS: remdesivir 100 MG in sodium chloride 0.9% (100 ml) 80 ML IV (18:09)
[2024-03-30] MEDS: pantoprazole 40 mg SDV IVP (20:28)
--- NOTE | 2024-03-30 21:50 | P.PN_ITS ---
Subjective 2 Subjective: She has so far tolerated oral intake. Heart rate is somewhat worse ranging up into 1-teens. Vitals/I&O/Wt Last Vital Signs Temp 98.2 F 03/30/24 19:43 Pulse 113 H 03/30/24 19:43 Resp 18 03/30/24 19:43 BP 164/102 03/30/24 19:43 Pulse Ox 91 03/30/24 19:43 O2 Del Method Room Air 03/30/24 19:43 O2 Flow Rate 3 03/30/24 11:47 03/30/24 03/30/24 03/30/24 06:59 14:59 22:59 Intake Total 100 / 790 970 / 970 440 / 1410 Output Total 500 / 950 425 / 425 500 / 925 Balance -400 / -160 545 / 545 -60 / 485 Weight last 48 hrs Weight 79.832 kg Weight 79.832 kg Weight 78.653 kg Physical Exam 2 Const: COMMON NORMALS: patient oriented x3 and alert GENERAL APPEARANCE: c ooperative and lethargic ORIENTATION/CONSCIOUSNESS: Yes lethargic HENMT: COMMON NORMALS: oropharynx normal Neck/C-Spine: COMMON NORMALS: no JVD Resp: COMMON NORMALS: normal respiratory effort and clear to auscultation bilaterally EFFORT & INSPECTION: Yes tachypneic AUSCULTATION: clear to auscultation bilaterally and rhonchi Cardio: COMMON NORMALS: no JVD, regular rhythm, S1 normal heart sound present, S2 normal heart sound present and No murmurs present (Cardio) RATE: t achycardic RHYTHM: regular rhythm and abnormal rhythm irregularly irregular HEART SOUNDS: S1 normal heart sound present and S2 normal heart sound present GI: COMMON NORMALS: Normal to inspection, nondistended, normoactive bowel sounds present and Soft to palpation PALPATION: Yes Soft to palpation and Yes Tenderness to palpation present (GI) Extremity: COMMON NORMALS: no joint enlargement and no pedal edema Neuro: COMMON NORMALS: patient oriented x3 and moves all extremities S ENSORIUM/ORIENTATION: Yes alert and Yes lethargic Skin: COMMON NORMALS: no rashes or lesions noted GENERAL SKIN EXAM: no rashes or lesions noted Urinary Catheter Management: Ramirez: Cath Placed During This Visit: yes Reason for Continuing Indwelling Catheter: Accurate Measurement of Urinary Output in Critically Ill Patients Urinary Catheter Date of Insertion: 03/27/24 Data 03/30/24 04:15 03/30/24 04:15 A&P Assessment and plan (1) Sepsis: Resolved. Reviewed vitals, CBC, D-dimer, CMP. Leukocytosis resolved. Still tachycardic, but overall improved. Afebrile. Reviewed blood culture, remaining negative. Working with physical therapy. With deconditioning arrangements underway for rehabilitation at SNF. Continue Levaquin and Flagyl. PT assessment. Deconditioned. Discussed with case management. Arrangements for postdischarge rehabilitation. (2) COVID-19: Reviewed vitals, CBC, D-dimer, oxygen requirement is improving, weaning down to room air. D-dimer down to 3.86. Tolerating oral intake. Reviewed D-dimer, noted elevated. Continue anticoagulation. Recheck D-dimer level. Continue Decadron, remdesivir. Severe COVID-19 requiring 4 L nasal cannula oxygen. With tachypnea, tachycardia, malaise, vomiting, acute pancreatitis. DONELL. Overnight started on dexamethasone. Will add remdesivir. Check D-dimer. Continue anticoagulation. Continue oxygen support, wean down as tolerating. (3) Pancreatitis: Reviewed lipase, continues to decrease down to 39. Tolerating oral intake so far. Improving pancreatitis. Symptomatically she is feeling Better. No vomiting. Reviewed CMP, lipase. Abdominal pain with improvement. Wants to try oral intake. Ordered diet. Renew IV morphine for breakthrough severe pain. She is still having abdominal pain but it is a touch better. Reviewed lipase, down to 109. Repeat lipase level. Continue IV morphine for pain which she is still needed this morning, Zofran as needed for nausea. So far no additional vomiting. Reviewed ER note as per discussion with GI provider, likelihood of acute intubation of hepatobiliary problem. Repeat liver parameters. Depending on ultrasound results and discussion with specialist, in case continuing care here, continue with bowel rest, IV hydration, IV morphine for pain control, Zofran. Reassess lipase. Qualifiers: Acute pancreatitis complication: no infection or necrosis Chronicity: a cute Pancreatitis type: unspecified pancreatitis type Qualified Code(s): K 85.90 - Acute pancreatitis without necrosis or infection, unspecified (4) Atrial fibrillation with rapid ventricular response: Further A-fib with RVR, continue amiodarone. Cardizem. Continue treatment of underlying causes as above. Improving heart rate but still A-fib with RVR, although heart rates now down to 90s-100s. Stop amnio drip. Switch to oral Amio. Continue Cardizem. Continue anticoagulation. Treat underlying conditions. Continue anticoagulation, will switch to therapeutic Lovenox while here. Monitor for risk of bleeding. (5) Dilated cbd, acquired: Reviewed ultrasound, reviewed ER note, discussion with GI provider. Not suspected to be acutely contributing to her presentation including pancreatitis. Liver parameters remain normal. Reassess LFTs. Additional assessment with ultrasound as above. Past history of gallbladder cancer, resection and partial liver resection. Prior CT on review back in 2019 with dilated CBD, recommended ERCP. Currently CBD and intrahepatic bile dilation. With right upper quadrant pain. With pancreatitis with lipase elevation. Somewhat difficult to reconcile is her liver numbers are not elevated. Pending liver ultrasound. (6) Right upper lobe pneumonia: Reviewed Legionella antigen, negative. Continue Levaquin. Sputum culture unavailable. She is improving. Sepsis resolved. Reassess. Reviewed urine bacterial antigens. Blood culture. Obtain sputum culture. Community-acquired pneumonia. Nasal MRSA, negative. Qualifiers: Pneumonia type: due to unspecified organism Qualified Code(s): J18.9 - Pneumonia, unspecified organism (7) Acute encephalopathy: Resolved. (8) Hyperkalemia: Improved. Reviewed potassium. With DONELL. Recheck renal function. Repeat potassium. (9) DONELL (acute kidney injury): DONELL resolved. Reviewed BUN, creatinine, bicarb, potassium. Reassess renal parameters. Hold Lasix for now. Treat sepsis. Associated with sepsis. Overall her 's blood been good over the last week. Suspect poor oral intake, dehydration as well prerenal kidney injury. Possible ATN. With hyperkalemia. With metabolic acidosis, anion gap 20.3, bicarb 17. Potassium 5.3. Received fluid challenge. Monitor intake and output. Plan Possible UTI: 11-20 WBC on UA. No evidence of obstructive uropathy on CT. AntiBac treatment as above with Levaquin. Follow-up urine culture. Attestations 2 Medical Necessity Statement*: Continue admission for assessment and management ofpneumonia, COVID-19, difficult to control A-fib with RVR, post discharge planning and arrangements. , Moderate MDM includes number and complexity of problems actively addressed during encounter as documented and High MDM includes amount and/or complexity of data reviewed/ordered [ resulted lab(s)/test(s), ordered lab(s)/test(s) and other healthcare professional discussion] as documented Diagnoses Sepsis A41.9 COVID-19 U07.1 Pancreatitis K85.90 Acute pancreatitis complication: no infection or necrosis Chronicity: acute Pancreatitis type: unspecified pancreatitis type Atrial fibrillation with rapid ventricular response I48.91 Dilated cbd, acquired K83.8 Right upper lobe pneumonia J18.9 Pneumonia type: due to unspecified organism Acute encephalopathy G93.40 Hyperkalemia E87.5 DONELL (acute kidney injury) N17.9
[2024-03-31] VITALS (8 sets, daily range): BP systolic 150–190; BP diastolic 98–131; PULSE 84–143; RESP 20–27; TEMP 36.6–37.1; O2SAT 90–92
[2024-03-31] MEDS: morphine 4 mg/mL SDV 1 mL IVP (03:50)
[2024-03-31 04:20] LABS: Alanine Aminotransferase 11 U/L (0-33); Albumin Level 2.9 g/dL (3.5-5.2); Alkaline Phosphatase 78 U/L (35-105); Aspartate Amino Transferase 15 U/L (0-32); Blood Urea Nitrogen 41 mg/dL (8-23); Calcium 8.5 mg/dL (8.5-10.5); Carbon Dioxide 17 mmol/L (22-29); Chloride 109 mmol/L (98-107); Creatinine Clr Calc Pharmacy 64.1617; Globulin 2.9 g/dL (1.3-4.6); Glomerular Filtration Rate 62.1 mL/min (90-130); Glucose 131 mg/dL (65-115); Osmolality Calculated 296 mOsm/kg (285-295); Sodium 137 mmol/L (136-145); Total Bilirubin 0.3 mg/dL (0.15-1.2); Total Protein 5.8 g/dL (6.6-8.7)
[2024-03-31 04:25] LABS: Anion Gap 14.9 (5-19); Potassium 3.9 mmol/L (3.5-5.1)
[2024-03-31 06:26] LABS: D Dimer 2.71 ug/mLFEU (0-0.59)
[2024-03-31] MEDS: dorzolamide 2% Op Soln 10 mL Btl 1 DROP EYE-BOTH ×3 (08:52→20:46)
[2024-03-31] MEDS: levothyroxine 75 mcg Tablet PO (08:52)
[2024-03-31] MEDS: amiodarone 200 mg Tablet PO ×2 (08:52→18:00)
[2024-03-31] MEDS: dilTIAZem ER (24HR) 120 mg Capsule PO (08:52)
[2024-03-31] MEDS: metroNIDAZOLE IV 500 MG/100 ML PREMIX 100 MG IV ×2 (08:55→16:19)
[2024-03-31] MEDS: enoxaparin 80 mg/0.8 mL Syringe SUBCUT ×2 (09:18→20:44)
[2024-03-31] MEDS: ondansetron 4 MG Tablet 8 MG PO ×3 (10:07→21:17)
[2024-03-31] MEDS: levofloxacin-dextrose 5 % 750 MG/150 ML PREMIX 100 MG IV (10:07)
[2024-03-31] MEDS: dilTIAZem 30 mg Tablet PO (10:07)
[2024-03-31] MEDS: remdesivir 100 MG in sodium chloride 0.9% (100 ml) 80 ML IV (18:00)
--- NOTE | 2024-03-31 19:59 | P.PN_ITS ---
Subjective 2 Subjective: Her heart rate has been more elevated today. She otherwise has been breathing better. Tolerating oral intake. No vomiting. Abdominal/back pain has resolved. Vitals/I&O/Wt Last Vital Signs Temp 98.7 F 03/31/24 12:32 Pulse 143 H 03/31/24 12:32 Resp 27 H 03/31/24 12:32 BP 150/107 03/31/24 12:32 Pulse Ox 90 03/31/24 12:32 O2 Del Method Room Air 03/31/24 07:45 O2 Flow Rate 3 03/30/24 11:47 03/31/24 03/31/24 03/31/24 06:59 14:59 22:59 Intake Total 340 / 1750 730 / 730 100 / 830 Output Total 900 / 1825 Balance -560 / -75 730 / 730 100 / 830 Weight last 48 hrs Weight 79.333 kg Weight 79.832 kg Weight 79.832 kg Physical Exam 2 Const: COMMON NORMALS: patient oriented x3 and alert GENERAL APPEARANCE: c ooperative HENMT: COMMON NORMALS: oropharynx normal Neck/C-Spine: COMMON NORMALS: no JVD Resp: COMMON NORMALS: normal respiratory effort and clear to auscultation bilaterally EFFORT & INSPECTION: Yes tachypneic AUSCULTATION: clear to auscultation bilaterally and rhonchi Cardio: COMMON NORMALS: no JVD, S1 normal heart sound present, S2 normal heart sound present and No murmurs present (Cardio) RATE: tachycardic RHYTHM: a bnormal rhythm irregularly irregular HEART SOUNDS: S1 normal heart sound present and S2 normal heart sound present GI: COMMON NORMALS: Normal to inspection, nondistended, normoactive bowel sounds present and Soft to palpation PALPATION: Yes Soft to palpation and Yes Tenderness to palpation present (GI) Extremity: COMMON NORMALS: no joint enlargement and no pedal edema Neuro: COMMON NORMALS: patient oriented x3 and moves all extremities S ENSORIUM/ORIENTATION: Yes alert Skin: COMMON NORMALS: no rashes or lesions noted GENERAL SKIN EXAM: no rashes or lesions noted Urinary Catheter Management: Ramirez: Cath Placed During This Visit: yes Reason for Continuing Indwelling Catheter: Accurate Measurement of Urinary Output in Critically Ill Patients Urinary Catheter Date of Insertion: 03/27/24 Data 03/30/24 04:15 03/31/24 03:28 A&P Assessment and plan (1) Atrial fibrillation with rapid ventricular response: Difficult to control A-fib with RVR with worsening, heart rates up into 140s again, blood pressure elevated, given 30 mg additional short acting Cardizem with transient improvement. However, heart rates again up to 140s, will give additional 60 mg tonight and will increase up to 180 mg long-acting in the morning. Monitor blood pressures with risk of hypotension with escalation of therapy. Continue amiodarone. Continue anticoagulation. Will give 20 mill colons potassium, recheck potassium. Check magnesium. Continue to monitor on telemetry with risk of hemodynamic decompensation. Treat underlying conditions. Continue anticoagulation, will switch to therapeutic Lovenox while here. Monitor for risk of bleeding. (2) COVID-19: Complete remdesivir and Decadron therapy. Continue to monitor oxygenation. So far is able to wean down to room air. D-dimer is decreasing. Reviewed vitals D-dimer Reviewed D-dimer, noted elevated. Continue anticoagulation. Recheck D-dimer level. Continue Decadron, remdesivir. Severe COVID-19 requiring 4 L nasal cannula oxygen. With tachypnea, tachycardia, malaise, vomiting, acute pancreatitis. DONELL. Overnight started on dexamethasone. Will add remdesivir. Check D-dimer. Continue anticoagulation. Continue oxygen support, wean down as tolerating. (3) Pancreatitis: So far has improved. Lipase was decreasing. Pain has resolved. She is tolerating oral intake. Reviewed lipase, continues to decrease down to 39. Tolerating oral intake so far. Improving pancreatitis. Symptomatically she is feeling Better. No vomiting. Reviewed CMP, lipase. Abdominal pain with improvement. Wants to try oral intake. Ordered diet. Renew IV morphine for breakthrough severe pain. She is still having abdominal pain but it is a touch better. Reviewed lipase, down to 109. Repeat lipase level. Continue IV morphine for pain which she is still needed this morning, Zofran as needed for nausea. So far no additional vomiting. Reviewed ER note as per discussion with GI provider, likelihood of acute intubation of hepatobiliary problem. Repeat liver parameters. Depending on ultrasound results and discussion with specialist, in case continuing care here, continue with bowel rest, IV hydration, IV morphine for pain control, Zofran. Reassess lipase. Qualifiers: Acute pancreatitis complication: no infection or necrosis Chronicity: a cute Pancreatitis type: unspecified pancreatitis type Qualified Code(s): K 85.90 - Acute pancreatitis without necrosis or infection, unspecified (4) Sepsis: Resolved. Reviewed vitals, CBC, D-dimer, CMP. Leukocytosis resolved. Still tachycardic, but overall improved. Afebrile. Reviewed blood culture, remaining negative. Working with physical therapy. With deconditioning arrangements underway for rehabilitation at SNF. Continue Levaquin and Flagyl. PT assessment. Deconditioned. Discussed with case management. Arrangements for postdischarge rehabilitation. (5) Right upper lobe pneumonia: Continue Levaquin. Reviewed Legionella antigen, negative. Continue Levaquin. Sputum culture unavailable. She is improving. Sepsis resolved. Reassess. Reviewed urine bacterial antigens. Blood culture. Obtain sputum culture. Community-acquired pneumonia. Nasal MRSA, negative. Qualifiers: Pneumonia type: due to unspecified organism Qualified Code(s): J18.9 - Pneumonia, unspecified organism (6) Dilated cbd, acquired: Reviewed ultrasound, reviewed ER note, discussion with GI provider. Not suspected to be acutely contributing to her presentation including pancreatitis. Liver parameters remain normal. Reassess LFTs. Additional assessment with ultrasound as above. Past history of gallbladder cancer, resection and partial liver resection. Prior CT on review back in 2019 with dilated CBD, recommended ERCP. Currently CBD and intrahepatic bile dilation. With right upper quadrant pain. With pancreatitis with lipase elevation. Somewhat difficult to reconcile is her liver numbers are not elevated. Pending liver ultrasound. (7) Acute encephalopathy: Resolved. (8) Hyperkalemia: Improved. Reviewed potassium. With DONELL. Recheck renal function. Repeat potassium. (9) DONELL (acute kidney injury): DONELL resolved. Reviewed BUN, creatinine, bicarb, potassium. Reassess renal parameters. Hold Lasix for now. Treat sepsis. Associated with sepsis. Overall her 's blood been good over the last week. Suspect poor oral intake, dehydration as well prerenal kidney injury. Possible ATN. With hyperkalemia. With metabolic acidosis, anion gap 20.3, bicarb 17. Potassium 5.3. Received fluid challenge. Monitor intake and output. Plan Possible UTI: 11-20 WBC on UA. No evidence of obstructive uropathy on CT. AntiBac treatment as above with Levaquin. Follow-up urine culture. Attestations 2 Medical Necessity Statement*: Continue admission for assessment and management of difficult to control A-fib with RVR, pneumonia, COVID-19, pending arrangements for rehabilitation. and High MDM includes described risk of complication, morbidity or mortality of management as documented Diagnoses Atrial fibrillation with rapid ventricular response I48.91 COVID-19 U07.1 Pancreatitis K85.90 Acute pancreatitis complication: no infection or necrosis Chronicity: acute Pancreatitis type: unspecified pancreatitis type Sepsis A41.9 Right upper lobe pneumonia J18.9 Pneumonia type: due to unspecified organism Dilated cbd, acquired K83.8 Acute encephalopathy G93.40 Hyperkalemia E87.5 DONELL (acute kidney injury) N17.9
[2024-03-31] MEDS: pantoprazole 40 mg SDV IVP (20:40)
[2024-03-31] MEDS: potassium chloride ER 20 mEq Tablet PO (20:40)
[2024-03-31] MEDS: dilTIAZem 60 mg Tablet PO (20:40)
[2024-03-31] MEDS: dexamethasone 10 mg/mL INJ 6 MG IVP (23:28)
[2024-04-01] VITALS (8 sets, daily range): BP systolic 153–167; BP diastolic 94–132; PULSE 68–114; RESP 23–33; TEMP 36.6–36.9; O2SAT 90–98
[2024-04-01] MEDS: metroNIDAZOLE IV 500 MG/100 ML PREMIX 100 MG IV ×3 (00:31→15:46)
[2024-04-01] MEDS: ondansetron 4 MG Tablet 8 MG PO ×4 (04:04→21:20)
[2024-04-01 05:37] LABS: Alanine Aminotransferase 10 U/L (0-33); Albumin Level 2.7 g/dL (3.5-5.2); Alkaline Phosphatase 66 U/L (35-105); Anion Gap 12.4 (5-19); Aspartate Amino Transferase 12 U/L (0-32); Blood Urea Nitrogen 34 mg/dL (8-23); Calcium 8.1 mg/dL (8.5-10.5); Carbon Dioxide 17 mmol/L (22-29); Chloride 108 mmol/L (98-107); Creatinine Clr Calc Pharmacy 64.8379; Globulin 2.8 g/dL (1.3-4.6); Glomerular Filtration Rate 62.1 mL/min (90-130); Glucose 122 mg/dL (65-115); Osmolality Calculated 285 mOsm/kg (285-295); Potassium 4.4 mmol/L (3.5-5.1); Sodium 133 mmol/L (136-145); Total Bilirubin 0.3 mg/dL (0.15-1.2); Total Protein 5.5 g/dL (6.6-8.7)
[2024-04-01] MEDS: enoxaparin 80 mg/0.8 mL Syringe SUBCUT ×2 (08:32→21:22)
[2024-04-01] MEDS: dorzolamide 2% Op Soln 10 mL Btl 1 DROP EYE-BOTH ×3 (08:32→20:16)
[2024-04-01] MEDS: levothyroxine 75 mcg Tablet PO (08:33)
[2024-04-01] MEDS: amiodarone 200 mg Tablet PO ×2 (08:33→18:29)
[2024-04-01] MEDS: levofloxacin-dextrose 5 % 750 MG/150 ML PREMIX 100 MG IV (09:49)
--- NOTE | 2024-04-01 12:15 | P.PN_ITS ---
Subjective 2 Subjective: She is feeling somewhat bloated in her abdomen today. Previously was having some constipation, but now is having more regular bowel movements. Vitals/I&O/Wt Last Vital Signs Temp 98.5 F 04/01/24 12:00 Pulse 114 H 04/01/24 12:00 Resp 33 H 04/01/24 12:00 BP 157/115 04/01/24 12:00 Pulse Ox 96 04/01/24 12:00 O2 Del Method Room Air 04/01/24 12:00 O2 Flow Rate 3 03/30/24 11:47 03/31/24 04/01/24 04/01/24 22:59 06:59 14:59 Intake Total 100 / 830 100 / 930 350 / 350 Output Total 1250 / 1250 300 / 1550 Balance -1150 / -420 -200 / -620 350 / 350 Weight last 48 hrs Weight 81.647 kg Weight 79.333 kg Physical Exam 2 Const: COMMON NORMALS: patient oriented x3 and alert GENERAL APPEARANCE: c ooperative and lethargic ORIENTATION/CONSCIOUSNESS: Yes lethargic HENMT: COMMON NORMALS: oropharynx normal Neck/C-Spine: COMMON NORMALS: no JVD Resp: COMMON NORMALS: normal respiratory effort and clear to auscultation bilaterally EFFORT & INSPECTION: Yes tachypneic AUSCULTATION: clear to auscultation bilaterally and rhonchi Cardio: COMMON NORMALS: no JVD, regular rhythm, S1 normal heart sound present, S2 normal heart sound present and No murmurs present (Cardio) RATE: t achycardic RHYTHM: regular rhythm and abnormal rhythm irregularly irregular HEART SOUNDS: S1 normal heart sound present and S2 normal heart sound present GI: COMMON NORMALS: Soft to palpation PALPATION: Yes Soft to palpation and Yes Tenderness to palpation present (GI) OTHER: Bowel sounds present. Soft abdomen. Minimal if any distention or Extremity: COMMON NORMALS: no joint enlargement and no pedal edema Neuro: COMMON NORMALS: patient oriented x3 and moves all extremities S ENSORIUM/ORIENTATION: Yes alert and Yes lethargic Skin: COMMON NORMALS: no rashes or lesions noted GENERAL SKIN EXAM: no rashes or lesions noted Urinary Catheter Management: Ramirez: Cath Placed During This Visit: yes Reason for Continuing Indwelling Catheter: Accurate Measurement of Urinary Output in Critically Ill Patients Urinary Catheter Date of Insertion: 03/27/24 Data 03/30/24 04:15 04/01/24 05:14 A&P Assessment and plan (1) Atrial fibrillation with rapid ventricular response: Heart rates slow to improve, but better than yesterday. Down to 100 and teens today. Increase long-acting Cardizem dose 280 mg daily. Discussed with pharmacist. Reviewed vitals, CMP, magnesium. Potassium magnesium are okay today. Recheck levels. Continue to monitor on telemetry, optimize A-fib with RVR control. Continue anticoagulation. Switch back to Eliquis at discharge. Treat underlying conditions. Monitor for risk of bleeding. (2) COVID-19: Complete remdesivir and Decadron therapy, with 2 doses remaining. Continue to monitor oxygenation. Wean down oxygen as tolerating. Continue PPI, monitor for risk of gastritis with steroid, monitor for hyperglycemia. She is also hypertensive, continue to optimize blood pressure control. D-dimer has been decreasing. Continue anticoagulation (3) Pancreatitis: Reports feeling somewhat bloated. Abdomen soft, bowel sounds present, minimal if any distention exam. Tolerating oral intake. Had some constipation earlier, but now having more regular bowel movements. Will recheck lipase. Add simethicone as needed. Monitor for any change in symptoms. So far has improved. Lipase was decreasing. Pain has resolved. She is tolerating oral intake. Reviewed lipase, continues to decrease down to 39. Tolerating oral intake so far. Improving pancreatitis. Symptomatically she is feeling Better. No vomiting. Reviewed CMP, lipase. Abdominal pain with improvement. Wants to try oral intake. Ordered diet. Renew IV morphine for breakthrough severe pain. She is still having abdominal pain but it is a touch better. Reviewed lipase, down to 109. Repeat lipase level. Continue IV morphine for pain which she is still needed this morning, Zofran as needed for nausea. So far no additional vomiting. Reviewed ER note as per discussion with GI provider, likelihood of acute intubation of hepatobiliary problem. Repeat liver parameters. Depending on ultrasound results and discussion with specialist, in case continuing care here, continue with bowel rest, IV hydration, IV morphine for pain control, Zofran. Reassess lipase. Qualifiers: Acute pancreatitis complication: no infection or necrosis Chronicity: a cute Pancreatitis type: unspecified pancreatitis type Qualified Code(s): K 85.90 - Acute pancreatitis without necrosis or infection, unspecified (4) Sepsis: Check procalcitonin. If continues to improve may be able to de-escalate antibiotics. Sepsis resolved. Reviewed blood culture, remaining negative. Working with physical therapy. With deconditioning arrangements underway for rehabilitation at [facility]. (5) Right upper lobe pneumonia: Continue Levaquin. Will check procalcitonin. If continues to do well may be able to discontinue antibiotic. Reviewed Legionella antigen, negative. Continue Levaquin. Sputum culture unavailable. She is improving. Sepsis resolved. Reassess. Reviewed urine bacterial antigens. Blood culture. Obtain sputum culture. Community-acquired pneumonia. Nasal MRSA, negative. Qualifiers: Pneumonia type: due to unspecified organism Qualified Code(s): J18.9 - Pneumonia, unspecified organism (6) Dilated cbd, acquired: He has been empirically on Levaquin and Flagyl. Check procalcitonin, if continues to improve may be able to de-escalate antibiotics. Reviewed ultrasound, reviewed ER note, discussion with GI provider. Not suspected to be acutely contributing to her presentation including pancreatitis. Liver parameters remain normal. Reassess LFTs. Additional assessment with ultrasound as above. Past history of gallbladder cancer, resection and partial liver resection. Prior CT on review back in 2019 with dilated CBD, recommended ERCP. Currently CBD and intrahepatic bile dilation. With right upper quadrant pain. With pancreatitis with lipase elevation. Somewhat difficult to reconcile is her liver numbers are not elevated. Pending liver ultrasound. (7) Acute encephalopathy: Resolved. (8) Hyperkalemia: Improved. Reviewed potassium. With DONELL. Recheck renal function. Repeat potassium. (9) DONELL (acute kidney injury): DONELL resolved. Reviewed BUN, creatinine, bicarb, potassium. Reassess renal parameters. Hold Lasix for now. Treat sepsis. Associated with sepsis. Overall her 's blood been good over the last week. Suspect poor oral intake, dehydration as well prerenal kidney injury. Possible ATN. With hyperkalemia. With metabolic acidosis, anion gap 20.3, bicarb 17. Potassium 5.3. Received fluid challenge. Monitor intake and output. Plan Deconditioned. Resume arrangements for postdischarge rehabilitation. Possible UTI: 11-20 WBC on UA. No evidence of obstructive uropathy on CT. AntiBac treatment as above with Levaquin. Follow-up urine culture. Attestations 2 Medical Necessity Statement*: Continue admission for assessment and management of difficult to control A-fib with RVR, pneumonia, COVID-19, de-escalation of therapy after sepsis, pending arrangements for rehabilitation. and High MDM includes amount and/or complexity of data reviewed/ordered [ resulted lab(s)/test(s), ordered lab(s)/test(s) and other healthcare professional discussion] and described risk of complication, morbidity or mortality of management as documented Diagnoses Atrial fibrillation with rapid ventricular response I48.91 COVID-19 U07.1 Pancreatitis K85.90 Acute pancreatitis complication: no infection or necrosis Chronicity: acute Pancreatitis type: unspecified pancreatitis type Sepsis A41.9 Right upper lobe pneumonia J18.9 Pneumonia type: due to unspecified organism Dilated cbd, acquired K83.8 Acute encephalopathy G93.40 Hyperkalemia E87.5 DONELL (acute kidney injury) N17.9
[2024-04-01] MEDS: dilTIAZem ER (24HR) 180 mg Capsule PO (12:40)
[2024-04-01] MEDS: HYDROcodone-acetaminophen 5-325 mg Tablet 1 TAB PO (13:10)
[2024-04-01] MEDS: remdesivir 100 MG in sodium chloride 0.9% (100 ml) 80 ML IV (18:29)
[2024-04-01] MEDS: pantoprazole 40 mg SDV IVP (21:20)
[2024-04-01] MEDS: dexamethasone 10 mg/mL INJ 6 MG IVP (23:11)
[2024-04-02] VITALS (8 sets, daily range): BP systolic 106–194; BP diastolic 84–114; PULSE 82–110; RESP 20–24; TEMP 36.4–36.9; O2SAT 90–93
[2024-04-02] MEDS: metroNIDAZOLE IV 500 MG/100 ML PREMIX 100 MG IV ×2 (00:35→08:39)
[2024-04-02] MEDS: HYDROcodone-acetaminophen 5-325 mg Tablet 1 TAB PO (02:19)
[2024-04-02 03:51] LABS: Procalcitonin 0.16 ng/mL (0-0.5)
[2024-04-02 04:03] LABS: Alanine Aminotransferase 11 U/L (0-33); Albumin Level 3.2 g/dL (3.5-5.2); Alkaline Phosphatase 73 U/L (35-105); Anion Gap 14.7 (5-19); Aspartate Amino Transferase 13 U/L (0-32); Blood Urea Nitrogen 36 mg/dL (8-23); Calcium 8.3 mg/dL (8.5-10.5); Carbon Dioxide 16 mmol/L (22-29); Chloride 103 mmol/L (98-107); Creatinine Clr Calc Pharmacy 64.8379; Globulin 2.2 g/dL (1.3-4.6); Glomerular Filtration Rate 62.1 mL/min (90-130); Glucose 120 mg/dL (65-115); Lipase 72 U/L (13-60); Osmolality Calculated 278 mOsm/kg (285-295); Potassium 4.7 mmol/L (3.5-5.1); Sodium 129 mmol/L (136-145); Total Bilirubin 0.2 mg/dL (0.15-1.2); Total Protein 5.4 g/dL (6.6-8.7)
[2024-04-02] MEDS: ondansetron 4 MG Tablet 8 MG PO ×4 (05:07→21:15)
[2024-04-02] MEDS: dilTIAZem ER (24HR) 180 mg Capsule PO (08:39)
[2024-04-02] MEDS: amiodarone 200 mg Tablet PO ×2 (08:39→18:13)
[2024-04-02] MEDS: enoxaparin 80 mg/0.8 mL Syringe SUBCUT ×2 (08:39→21:15)
[2024-04-02] MEDS: dorzolamide 2% Op Soln 10 mL Btl 1 DROP EYE-BOTH ×3 (08:39→21:20)
[2024-04-02] MEDS: levothyroxine 75 mcg Tablet PO (08:39)
[2024-04-02] MEDS: levofloxacin-dextrose 5 % 750 MG/150 ML PREMIX 100 MG IV (09:44)
--- NOTE | 2024-04-02 10:05 | PC.SOCIAL ---
IMM Update Pg. 2 of IMM updated. Copy provided at bedside.
--- NOTE | 2024-04-02 14:18 | P.PN_ITS ---
Subjective 2 Subjective: Patient states she continues to feel better. Saturating 92% on room air. Tachycardic with heart rate ranging between 90-1 10 today. A-fib. Denies any chest pain or palpitations. Leukocytosis has resolved. Medications: Reviewed: Yes Vitals/I&O/Wt Last Vital Signs Temp 98.3 F 04/02/24 12:00 Pulse 110 H 04/02/24 12:00 Resp 20 H 04/02/24 12:00 BP 106/86 04/02/24 12:00 Pulse Ox 92 04/02/24 12:00 O2 Del Method Room Air 04/02/24 12:00 O2 Flow Rate 3 03/30/24 11:47 04/01/24 04/02/24 04/02/24 22:59 06:59 14:59 Intake Total 389.959 / 1739.959 100 / 1839.959 490 / 490 Output Total 1450 / 1450 800 / 2250 Balance -1060.041 / 289.959 -700 / -410.041 490 / 490 Weight last 48 hrs Weight 81.647 kg Physical Exam 2 Narrative: General: No acute distress, AO x3 HEENT: PERRLA, pupils bilaterally equal and reactive, pallors not present Chest: Normal vesicular breath sounds, no added sounds, equal good air entry bilaterally CVS: S1-S2 regular, no murmurs, no tachycardia, no gallops, no rubs Abdomen: Soft, nontender, no organomegaly, bowel sounds present Neuro: No focal deficits, no facial deformity, AO x3, power 5/5 in all limbs EXt: Bilateral lower extremity minimal pitting edema Urinary Catheter Management: Ramirez: Cath Placed During This Visit: yes Reason for Continuing Indwelling Catheter: Accurate Measurement of Urinary Output in Critically Ill Patients Urinary Catheter Date of Insertion: 03/27/24 Data 03/30/24 04:15 04/02/24 02:56 Micro: Microbiology 03/27/24 13:30 Blood Culture - Final Blood NO GROWTH AFTER 5 DAYS 03/27/24 13:32 Blood Culture - Final Blood NO GROWTH AFTER 5 DAYS A&P Assessment and plan (1) Atrial fibrillation with rapid ventricular response: Heart rates slow to improve, but better than yesterday. Down to 100 and teens today. Increase long-acting Cardizem dose 280 mg daily. Discussed with pharmacist. Reviewed vitals, CMP, magnesium. Potassium magnesium are okay today. Recheck levels. Continue to monitor on telemetry, optimize A-fib with RVR control. Continue anticoagulation. Switch back to Eliquis at discharge. Treat underlying conditions. Monitor for risk of bleeding. (2) COVID-19: Complete remdesivir and Decadron therapy, with 2 doses remaining. Continue to monitor oxygenation. Wean down oxygen as tolerating. Continue PPI, monitor for risk of gastritis with steroid, monitor for hyperglycemia. She is also hypertensive, continue to optimize blood pressure control. D-dimer has been decreasing. Continue anticoagulation (3) Pancreatitis: Reports feeling somewhat bloated. Abdomen soft, bowel sounds present, minimal if any distention exam. Tolerating oral intake. Had some constipation earlier, but now having more regular bowel movements. Will recheck lipase. Add simethicone as needed. Monitor for any change in symptoms. So far has improved. Lipase was decreasing. Pain has resolved. She is tolerating oral intake. Reviewed lipase, continues to decrease down to 39. Tolerating oral intake so far. Improving pancreatitis. Symptomatically she is feeling Better. No vomiting. Reviewed CMP, lipase. Abdominal pain with improvement. Wants to try oral intake. Ordered diet. Renew IV morphine for breakthrough severe pain. She is still having abdominal pain but it is a touch better. Reviewed lipase, down to 109. Repeat lipase level. Continue IV morphine for pain which she is still needed this morning, Zofran as needed for nausea. So far no additional vomiting. Reviewed ER note as per discussion with GI provider, likelihood of acute intubation of hepatobiliary problem. Repeat liver parameters. Depending on ultrasound results and discussion with specialist, in case continuing care here, continue with bowel rest, IV hydration, IV morphine for pain control, Zofran. Reassess lipase. Qualifiers: Acute pancreatitis complication: no infection or necrosis Chronicity: a cute Pancreatitis type: unspecified pancreatitis type Qualified Code(s): K 85.90 - Acute pancreatitis without necrosis or infection, unspecified (4) Sepsis: Check procalcitonin. If continues to improve may be able to de-escalate antibiotics. Sepsis resolved. Reviewed blood culture, remaining negative. Working with physical therapy. With deconditioning arrangements underway for rehabilitation at [facility]. (5) Right upper lobe pneumonia: Continue Levaquin. Will check procalcitonin. If continues to do well may be able to discontinue antibiotic. Reviewed Legionella antigen, negative. Continue Levaquin. Sputum culture unavailable. She is improving. Sepsis resolved. Reassess. Reviewed urine bacterial antigens. Blood culture. Obtain sputum culture. Community-acquired pneumonia. Nasal MRSA, negative. Qualifiers: Pneumonia type: due to unspecified organism Qualified Code(s): J18.9 - Pneumonia, unspecified organism (6) Dilated cbd, acquired: He has been empirically on Levaquin and Flagyl. Check procalcitonin, if continues to improve may be able to de-escalate antibiotics. Reviewed ultrasound, reviewed ER note, discussion with GI provider. Not suspected to be acutely contributing to her presentation including pancreatitis. Liver parameters remain normal. Reassess LFTs. Additional assessment with ultrasound as above. Past history of gallbladder cancer, resection and partial liver resection. Prior CT on review back in 2019 with dilated CBD, recommended ERCP. Currently CBD and intrahepatic bile dilation. With right upper quadrant pain. With pancreatitis with lipase elevation. Somewhat difficult to reconcile is her liver numbers are not elevated. Pending liver ultrasound. (7) Acute encephalopathy: Resolved. (8) Hyperkalemia: Improved. Reviewed potassium. With DONELL. Recheck renal function. Repeat potassium. (9) DONELL (acute kidney injury): DONELL resolved. Reviewed BUN, creatinine, bicarb, potassium. Reassess renal parameters. Hold Lasix for now. Treat sepsis. Associated with sepsis. Overall her 's blood been good over the last week. Suspect poor oral intake, dehydration as well prerenal kidney injury. Possible ATN. With hyperkalemia. With metabolic acidosis, anion gap 20.3, bicarb 17. Potassium 5.3. Received fluid challenge. Monitor intake and output. Plan Deconditioned. Resume arrangements for postdischarge rehabilitation. Possible UTI: 11-20 WBC on UA. No evidence of obstructive uropathy on CT. AntiBac treatment as above with Levaquin. Follow-up urine culture. 04/02/2024 Patient reports feeling better today. Leukocytosis is resolved. She is tolerating a p.o. intake. No fever. She has been able to ambulate in the room with assistance, however becomes tachycardic with heart rate up to 150 with effort. Increase Cardizem from 180 mg p.o. daily to 240 mg p.o. daily. May need to titrate up further based on response. She is developing bilateral lower extremity pitting edema. Typically takes Lasix every day at home. Resume Lasix 20 mg p.o. daily today. Switch as many IV medications to oral as possible in anticipation of upcoming discharge in the next 24 to 48 hours. Change levofloxacin 750 mg IV to 750 mg p.o. daily. Change metronidazole from 500 mg IV 3 times a day to 500 mg p.o. 3 times a day. Discontinue dexamethasone 6 mg IV every 24 hours, changed to prednisone 40 mg p.o. daily. Complains of longstanding bilateral lower extremity pain which kept her up at night. Patient used to take aspirin 325 mg daily at home with milk per her report. Aspirin 325 mg has been discontinued due to ? Gastritis per her description. Additionally ASA 325 with Eliquis puts her at high risk of bleeding. Trial of tramadol 50 mg p.o. every 8 hours as needed. We are waiting to hear from SNF with regards to authorization to be able to appropriately disposition her. PUD ppx with protonix 40mg po daily. On full dose a/c for A fib. Attestations 2 Medical Necessity Statement*: Transition IV to oral medications. Increase Cardizem from 180 mg to 240 mg p.o. daily. Continues to have some uncontrolled heart rate. Resume diuretics at home dosing, closely monitor for response. Anticipate discharge in the upcoming 24 to 48 hours pending disposition planning. Coding Level of Care Code Acute Code for Chg Fwd High MDM includes number and complexity of problems actively addressed during encounter, amount and/or complexity of data reviewed/ordered and described risk of complication, morbidity or mortality of management as documented Diagnoses Atrial fibrillation with rapid ventricular response I48.91 COVID-19 U07.1 Pancreatitis K85.90 Acute pancreatitis complication: no infection or necrosis Chronicity: acute Pancreatitis type: unspecified pancreatitis type Sepsis A41.9 Right upper lobe pneumonia J18.9 Pneumonia type: due to unspecified organism Dilated cbd, acquired K83.8 Acute encephalopathy G93.40 Hyperkalemia E87.5 DONELL (acute kidney injury) N17.9
[2024-04-02] MEDS: FUROsemide 20 mg Tablet PO (15:59)
[2024-04-02] MEDS: metroNIDAZOLE 500 MG Tablet PO ×2 (15:59→21:15)
[2024-04-03] VITALS (9 sets, daily range): BP systolic 137–171; BP diastolic 96–118; PULSE 88–131; RESP 16–33; TEMP 36.7–37; O2SAT 90–94
[2024-04-03 04:05] LABS: Basophils % 0.1 %; Hematocrit 39.9 % (36-47); Lymphocytes # 0.9 10^3/uL (0.8-4.8); Lymphocytes % 10.1 %; Mean Corpuscular HGB Conc 31.3 g/dL (30-55); Mean Corpuscular Hemoglobin 23.6 pg (27-33); Mean Corpuscular Volume 75.4 fl (85-98); Monocytes # 0.9 10^3/uL (0.2-0.9); Neutrophils # 7.08 10^3/uL (1.8-7.7); Neutrophils % 78.8 %; Nucleated Red Blood Cells % 0 %; Platelet Count 281 10^3/cmm (157-399); Red Blood Count 5.29 10^6/uL (3.85-5.65); Red Cell Distribution Width 18.6 % (12.1-15.1); White Blood Count 8.99 10^3/uL (3.29-11.43)
[2024-04-03 04:34] LABS: Alanine Aminotransferase 11 U/L (0-33); Albumin Level 3.2 g/dL (3.5-5.2); Alkaline Phosphatase 71 U/L (35-105); Aspartate Amino Transferase 15 U/L (0-32); Blood Urea Nitrogen 33 mg/dL (8-23); Calcium 8.4 mg/dL (8.5-10.5); Carbon Dioxide 20 mmol/L (22-29); Chloride 105 mmol/L (98-107); Creatinine Clr Calc Pharmacy 64.8379; Globulin 2.1 g/dL (1.3-4.6); Glomerular Filtration Rate 62.1 mL/min (90-130); Glucose 97 mg/dL (65-115); Osmolality Calculated 287 mOsm/kg (285-295); Sodium 135 mmol/L (136-145); Total Bilirubin 0.2 mg/dL (0.15-1.2); Total Protein 5.3 g/dL (6.6-8.7)
[2024-04-03 04:43] LABS: Anion Gap 14.5 (5-19); Potassium 4.5 mmol/L (3.5-5.1)
[2024-04-03] MEDS: ondansetron 4 MG Tablet 8 MG PO ×3 (05:07→21:08)
[2024-04-03] MEDS: dilTIAZem ER (24HR) 180 mg Capsule 240 MG PO (08:35)
[2024-04-03] MEDS: TRAMadol 50 mg Tablet PO (08:36)
[2024-04-03] MEDS: predniSONE 20 mg Tablet 40 MG PO (08:36)
[2024-04-03] MEDS: levoFLOXacin 750 mg Tablet PO (08:36)
[2024-04-03] MEDS: FUROsemide 20 mg Tablet PO (08:36)
[2024-04-03] MEDS: metroNIDAZOLE 500 MG Tablet PO ×3 (08:37→20:09)
[2024-04-03] MEDS: amiodarone 200 mg Tablet PO ×2 (08:37→18:14)
[2024-04-03] MEDS: pantoprazole DR 40 mg Tablet PO (08:37)
[2024-04-03] MEDS: levothyroxine 75 mcg Tablet PO (08:37)
[2024-04-03] MEDS: dorzolamide 2% Op Soln 10 mL Btl 1 DROP EYE-BOTH ×3 (08:42→20:09)
[2024-04-03] MEDS: enoxaparin 80 mg/0.8 mL Syringe SUBCUT (08:42)
--- NOTE | 2024-04-03 10:27 | PC.NURSE ---
Dr. Hernandez told nurse to no longer give pt tramadol because it altered her mental status. Tramadol order stopped VORB by nurse.
--- NOTE | 2024-04-03 14:54 | PM.PN ---
Subjective Subjective: No new complaints today. States that tramadol did not help with her pain very much but did make her excessively sleepy. Heart rate this morning was at 140s, now better at 70 and A-fib. Rate controlled currently. Medications: Reviewed: Yes Vitals/I&O/Wt Last Vital Signs Temp 98.0 F 04/03/24 11:06 Pulse 131 H 04/03/24 11:06 Resp 33 H 04/03/24 11:06 BP 144/101 04/03/24 11:06 Pulse Ox 92 04/03/24 11:06 O2 Del Method Room Air 04/03/24 11:06 O2 Flow Rate 3 03/30/24 11:47 04/02/24 04/03/24 04/03/24 22:59 06:59 14:59 Intake Total 720 / 1450 140 / 1590 900 / 900 Output Total 2450 / 2450 1100 / 3550 500 / 500 Balance -1730 / -1000 -960 / -1960 400 / 400 Physical Exam Narrative: General: No acute distress, AO x3 HEENT: PERRLA, pupils bilaterally equal and reactive, pallors not present Chest: Normal vesicular breath sounds, no added sounds, equal good air entry bilaterally CVS: S1-S2 regular, no murmurs, no tachycardia, no gallops, no rubs Abdomen: Soft, nontender, no organomegaly, bowel sounds present Neuro: No focal deficits, no facial deformity, AO x3, power 5/5 in all limbs EXt: Bilateral lower extremity minimal pitting edema Urinary Catheter Management: Ramirez: Cath Placed During This Visit: yes Reason for Continuing Indwelling Catheter: Accurate Measurement of Urinary Output in Critically Ill Patients Urinary Catheter Date of Insertion: 03/27/24 Data 04/03/24 03:16 04/03/24 03:16 A&P Assessment and plan (1) Atrial fibrillation with rapid ventricular response: Heart rates slow to improve, but better than yesterday. Down to 100 and teens today. Increase long-acting Cardizem dose 280 mg daily. Discussed with pharmacist. Reviewed vitals, CMP, magnesium. Potassium magnesium are okay today. Recheck levels. Continue to monitor on telemetry, optimize A-fib with RVR control. Continue anticoagulation. Switch back to Eliquis at discharge. Treat underlying conditions. Monitor for risk of bleeding. (2) COVID-19: Complete remdesivir and Decadron therapy, with 2 doses remaining. Continue to monitor oxygenation. Wean down oxygen as tolerating. Continue PPI, monitor for risk of gastritis with steroid, monitor for hyperglycemia. She is also hypertensive, continue to optimize blood pressure control. D-dimer has been decreasing. Continue anticoagulation (3) Pancreatitis: Reports feeling somewhat bloated. Abdomen soft, bowel sounds present, minimal if any distention exam. Tolerating oral intake. Had some constipation earlier, but now having more regular bowel movements. Will recheck lipase. Add simethicone as needed. Monitor for any change in symptoms. So far has improved. Lipase was decreasing. Pain has resolved. She is tolerating oral intake. Reviewed lipase, continues to decrease down to 39. Tolerating oral intake so far. Improving pancreatitis. Symptomatically she is feeling Better. No vomiting. Reviewed CMP, lipase. Abdominal pain with improvement. Wants to try oral intake. Ordered diet. Renew IV morphine for breakthrough severe pain. She is still having abdominal pain but it is a touch better. Reviewed lipase, down to 109. Repeat lipase level. Continue IV morphine for pain which she is still needed this morning, Zofran as needed for nausea. So far no additional vomiting. Reviewed ER note as per discussion with GI provider, likelihood of acute intubation of hepatobiliary problem. Repeat liver parameters. Depending on ultrasound results and discussion with specialist, in case continuing care here, continue with bowel rest, IV hydration, IV morphine for pain control, Zofran. Reassess lipase. Qualifiers: Acute pancreatitis complication: no infection or necrosis Chronicity: acute Pancreatitis type: unspecified pancreatitis type Qualified Code(s): K85.90 - Acute pancreatitis without necrosis or infection, unspecified (4) Sepsis: Check procalcitonin. If continues to improve may be able to de-escalate antibiotics. Sepsis resolved. Reviewed blood culture, remaining negative. Working with physical therapy. With deconditioning arrangements underway for rehabilitation at [facility]. (5) Right upper lobe pneumonia: Continue Levaquin. Will check procalcitonin. If continues to do well may be able to discontinue antibiotic. Reviewed Legionella antigen, negative. Continue Levaquin. Sputum culture unavailable. She is improving. Sepsis resolved. Reassess. Reviewed urine bacterial antigens. Blood culture. Obtain sputum culture. Community-acquired pneumonia. Nasal MRSA, negative. Qualifiers: Pneumonia type: due to unspecified organism Qualified Code(s): J18.9 - Pneumonia, unspecified organism (6) Dilated cbd, acquired: He has been empirically on Levaquin and Flagyl. Check procalcitonin, if continues to improve may be able to de-escalate antibiotics. Reviewed ultrasound, reviewed ER note, discussion with GI provider. Not suspected to be acutely contributing to her presentation including pancreatitis. Liver parameters remain normal. Reassess LFTs. Additional assessment with ultrasound as above. Past history of gallbladder cancer, resection and partial liver resection. Prior CT on review back in 2019 with dilated CBD, recommended ERCP. Currently CBD and intrahepatic bile dilation. With right upper quadrant pain. With pancreatitis with lipase elevation. Somewhat difficult to reconcile is her liver numbers are not elevated. Pending liver ultrasound. (7) Acute encephalopathy: Resolved. (8) Hyperkalemia: Improved. Reviewed potassium. With DONELL. Recheck renal function. Repeat potassium. (9) DONELL (acute kidney injury): DONELL resolved. Reviewed BUN, creatinine, bicarb, potassium. Reassess renal parameters. Hold Lasix for now. Treat sepsis. Associated with sepsis. Overall her 's blood been good over the last week. Suspect poor oral intake, dehydration as well prerenal kidney injury. Possible ATN. With hyperkalemia. With metabolic acidosis, anion gap 20.3, bicarb 17. Potassium 5.3. Received fluid challenge. Monitor intake and output. Plan Deconditioned. Resume arrangements for postdischarge rehabilitation. Possible UTI: 11-20 WBC on UA. No evidence of obstructive uropathy on CT. AntiBac treatment as above with Levaquin. Follow-up urine culture. 04/02/2024 Patient reports feeling better today. Leukocytosis is resolved. She is tolerating a p.o. intake. No fever. She has been able to ambulate in the room with assistance, however becomes tachycardic with heart rate up to 150 with effort. Increase Cardizem from 180 mg p.o. daily to 240 mg p.o. daily. May need to titrate up further based on response. She is developing bilateral lower extremity pitting edema. Typically takes Lasix every day at home. Resume Lasix 20 mg p.o. daily today. Switch as many IV medications to oral as possible in anticipation of upcoming discharge in the next 24 to 48 hours. Change levofloxacin 750 mg IV to 750 mg p.o. daily. Change metronidazole from 500 mg IV 3 times a day to 500 mg p.o. 3 times a day. Discontinue dexamethasone 6 mg IV every 24 hours, changed to prednisone 40 mg p.o. daily. Complains of longstanding bilateral lower extremity pain which kept her up at night. Patient used to take aspirin 325 mg daily at home with milk per her report. Aspirin 325 mg has been discontinued due to ? Gastritis per her description. Additionally ASA 325 with Eliquis puts her at high risk of bleeding. Trial of tramadol 50 mg p.o. every 8 hours as needed. We are waiting to hear from [facility] with regards to authorization to be able to appropriately disposition her. PUD ppx with protonix 40mg po daily. On full dose a/c for A fib. April 03, 2024 No acute interim events. Patient states that tramadol did not help with her pain and made her sleepy. Changed to Percocet 10/06/2024 every 8 hours as needed as needed for pain. Heart rate was at 130 this morning. Dose of Cardizem has been increased to 240 mg p.o. daily. By this afternoon her heart rate is at 70 bpm. Blood pressure ranging 1 40-1 50 systolic. Resuming patient's home dose of hydralazine 25 mg 3 times daily today. Awaiting appropriate disposition planning. Attestations Medical Necessity Statement*: Patient likely to be benefited from ongoing therapy, plan transition to intermediate facility, awaiting authorization Coding Level of Care Code Acute Code for [facility] Diagnoses Atrial fibrillation with rapid ventricular response I48.91 COVID-19 U07.1 Pancreatitis K85.90 Acute pancreatitis complication: no infection or necrosis Chronicity: acute Pancreatitis type: unspecified pancreatitis type Sepsis A41.9 Right upper lobe pneumonia J18.9 Pneumonia type: due to unspecified organism Dilated cbd, acquired K83.8 Acute encephalopathy G93.40 Hyperkalemia E87.5 DONELL (acute kidney injury) N17.9
[2024-04-03] MEDS: hyDRALAzine 25 mg Tablet PO ×2 (15:26→20:09)
[2024-04-03] MEDS: oxyCODONE-APAP 5-325 mg Tablet 1 TAB PO (18:14)
[2024-04-03] MEDS: apixaban 5 mg Tablet PO (20:09)
[2024-04-04] VITALS (11 sets, daily range): BP systolic 129–191; BP diastolic 67–117; PULSE 67–123; RESP 16–28; TEMP 36.6–36.8; O2SAT 91–94; BMI 28.1
[2024-04-04] MEDS: ondansetron 4 MG Tablet 8 MG PO (05:21)
[2024-04-04] MEDS: dilTIAZem ER (24HR) 180 mg Capsule 240 MG PO (08:12)
[2024-04-04] MEDS: levoFLOXacin 750 mg Tablet PO (08:14)
[2024-04-04] MEDS: metroNIDAZOLE 500 MG Tablet PO ×2 (08:14→17:09)
[2024-04-04] MEDS: hyDRALAzine 25 mg Tablet PO ×2 (08:15→17:09)
[2024-04-04] MEDS: amiodarone 200 mg Tablet PO ×2 (08:15→17:09)
[2024-04-04] MEDS: predniSONE 20 mg Tablet 40 MG PO (08:15)
[2024-04-04] MEDS: pantoprazole DR 40 mg Tablet PO (08:15)
[2024-04-04] MEDS: levothyroxine 75 mcg Tablet PO (08:16)
[2024-04-04] MEDS: oxyCODONE-APAP 5-325 mg Tablet 1 TAB PO ×2 (08:16→17:14)
[2024-04-04] MEDS: FUROsemide 20 mg Tablet PO (08:17)
[2024-04-04] MEDS: dorzolamide 2% Op Soln 10 mL Btl 1 DROP EYE-BOTH ×2 (08:25→17:16)
[2024-04-04] MEDS: apixaban 5 mg Tablet PO (09:24)
--- NOTE | 2024-04-04 10:54 | PC.NURSE ---
Ramirez removed at 1051 am. 280ml in the bag. Removed without complication.
[2024-04-04] MEDS: dilTIAZem 60 mg Tablet PO (13:44)
--- NOTE | 2024-04-04 13:50 | PC.NURSE ---
Nurse attempted to reach patient's daughter earlier today but phone went straight to voicemail. Nurse called patient's son to see if he could help us get in touch with his sister. He said he would try and would have his sister call the hospital.
--- NOTE | 2024-04-04 14:43 | PM.DCS ---
Discharge Providers Date of Admission: 03/27/24 19:28 Date of Discharge: April 04, 2024 Attending Provider at Admission: Art Palacio Attending Provider at Discharge: Sulema Hernandez MD Primary Care Provider: Mega Martinez MD Diagnoses at Discharge Discharge Diagnosis (1) Atrial fibrillation with rapid ventricular response: Status: Acute (2) COVID-19: Status: Acute (3) Pancreatitis: Status: Acute Qualifiers: Acute pancreatitis complication: no infection or necrosis Chronicity: acute Pancreatitis type: unspecified pancreatitis type Qualified Code(s): K85.90 - Acute pancreatitis without necrosis or infection, unspecified (4) Sepsis: Status: Acute (5) Right upper lobe pneumonia: Status: Acute Qualifiers: Pneumonia type: due to unspecified organism Qualified Code(s): J18.9 - Pneumonia, unspecified organism (6) Dilated cbd, acquired: Status: Acute (7) Acute encephalopathy: Status: Acute (8) Hyperkalemia: Status: Acute (9) DONELL (acute kidney injury): Status: Acute Reason for Visit Reason for Visit: Back Pain, Side pain Brief History: 68-year-old lady with history of adenocarcinoma of gallbladder, cholecystectomy, partial liver resection, atrial fibrillation, on diltiazem, Eliquis, hypertension, brain lesion, 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 She presented to the emergency room on March 27, 2024 with chief complaints of vomiting cough A-fib with RVR. She was found to have COVID-19 pneumonia, A-fib RVR for which she required to be on amiodarone infusion. CT of the abdomen and pelvis additionally revealed acute interstitial edematous pancreatitis, lipase was elevated at 250. There was no CBD dilatation on CT. Her liver functions including T. bili and alkaline phosphatase remain normal. She was managed for acute pancreatitis, A-fib RVR, DONELL which has since resolved and COVID-19 pneumonia. She received treatment with remdesivir, dexamethasone and as needed nebulization for COVID-19. For possibility of superadded bacterial pneumonia she received antibiotics by way of levofloxacin. Metronidazole was additionally added due to discovery of pancreatitis on CT. She continues to have intermittent back discomfort but this is much improved since admission. Nausea and vomiting is resolved. She is tolerating a p.o. intake at this time. For A-fib RVR amiodarone has been added as a new medication. She is currently on 200 mg p.o. twice daily. Recommended to follow-up with cardiology as outpatient within the next 1 to 2 weeks for continued taper. Eliquis 5 mg twice daily continued at discharge. DONELL is now resolved with adequate hydration. She has been intermittently tachycardic with exertion with heart rate up to 120 to 130/min, this is improved after titrating up the dose of Cardizem back to her home level of 300 mg daily. She has been weaned down to room air. She is being discharged today in improved condition. Initially planned to be transition to [facility] facility, however with continued physical therapy, patient improved to the point of being able to ambulate 25 feet, she has been ambulating within the room with stand by assist. She is therefore being discharged home with home health to her daughters home. Physical Exam Narrative: General: No acute distress, AO x3 HEENT: PERRLA, pupils bilaterally equal and reactive, pallors not present Chest: Normal vesicular breath sounds, no added sounds, equal good air entry bilaterally CVS: S1-S2 regular, no murmurs, no tachycardia, no gallops, no rubs Abdomen: Soft, nontender, no organomegaly, bowel sounds present Neuro: No focal deficits, no facial deformity, AO x3, power 5/5 in all limbs Extremities: Healthy surgical dressing present on the right hip, mild tenderness, soft no erythema. Urinary Catheter Management: Ramirez: Cath Placed During This Visit: yes Reason for Continuing Indwelling Catheter: Accurate Measurement of Urinary Output in Critically Ill Patients Urinary Catheter Date of Insertion: 03/27/24 Discharge Data Studies Completed and Pending Completed Studies During Hospitalization Category Date Time Status CTA chest CT abdomen pelvis [CT angio chest w abd pel w Cat Scan 03/27/24 14:26 Completed con] Stat US abdomen complete* [id number] Stat Ultrasound 03/27/24 17:28 Completed Pending at discharge Category Date Time Status Sputum Culture and Gram Stain Routine Lab 03/27/24 21:25 Uncollected Radiology Impressions Chest/Abdomen/Pelvis CT 03/27/24 14:26 IMPRESSION: 1. No pulmonary embolism. 2. Consolidation and volume loss in the anterior inferior right upper lobe. Possible atelectasis and/or infection. 3. Mild diffuse central bronchial wall thickening and ground-glass opacity in the lower lungs suggests pulmonary edema. 4. No aortic dissection. Dilated ascending thoracic aorta. Recommend clinical assessment and follow-up. 5. Trace simple right pleural effusion. 6. Incidental findings above. IMPRESSION: 1. Acute interstitial edematous pancreatitis. No sign of necrosis or hemorrhage. No sign of pancreatic duct obstruction. No biliary or pancreatic duct stones. 2. Mild ascites. No organized fluid collection. No sign of significant intraperitoneal bleeding. 3. Moderate to severe diffuse biliary dilation is stable since 11/21/2019 and may be related to reservoir fract from prior cholecystectomy. Distal common bile duct obstruction is not excluded. No stones are seen. Correlate with liver function tests. 4. 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 5. Incidental findings above. Abdomen Ultrasound 03/27/24 17:28 IMPRESSION: 1. Prominent bile ducts as described above. 2. Absent right kidney. Prominent left kidney. 3. The pancreas was obscured. Laboratory Results WBC 8.99 10^3/uL (3.29-11.43) 04/03/24 03:16 RBC 5.29 10^6/uL (3.85-5.65) 04/03/24 03:16 Hgb 12.50 g/dL (11.27-16.99) 04/03/24 03:16 Hct 39.9 % (36-47) 04/03/24 03:16 MCV 75.4 fl (85-98) L 04/03/24 03:16 MCH 23.6 pg (27-33) L 04/03/24 03:16 MCHC 31.3 g/dL (30-55) 04/03/24 03:16 RDW 18.6 % (12.1-15.1) H 04/03/24 03:16 Plt Count 281 10^3/cmm (157-399) 04/03/24 03:16 MPV 10.0 fL (7.4-10.4) 04/03/24 03:16 Neut % (Auto) 78.8 % 04/03/24 03:16 Lymph % (Auto) 10.1 % 04/03/24 03:16 [place] % (Auto) 10.0 % 04/03/24 03:16 Eos % (Auto) 0.0 % 04/03/24 03:16 Baso % (Auto) 0.1 % 04/03/24 03:16 Neut # (Auto) 7.08 10^3/uL (1.8-7.7) 04/03/24 03:16 Lymph # (Auto) 0.9 10^3/uL (0.8-4.8) 04/03/24 03:16 [place] # (Auto) 0.9 10^3/uL (0.2-0.9) 04/03/24 03:16 Eos # (Auto) 0.0 10^3/uL (0.0-0.8) 04/03/24 03:16 Baso # (Auto) 0.0 10^3/uL (0.0-0.1) 04/03/24 03:16 Nucleated RBC % (auto) 0 % 04/03/24 03:16 Nucleated RBCs # 0.0 /100WBC 04/03/24 03:16 D-Dimer 2.71 ug/mLFEU (0-0.59) H 03/31/24 05:49 Specimen Type Arterial 03/27/24 13:16 Sample Site Radial, left 03/27/24 13:16 ABG pH 7.50 (7.35-7.45) H 03/27/24 13:16 ABG pCO2 22.4 mmHg (35-45) L 03/27/24 13:16 ABG pO2 58.3 mmHg (80.0-100.0) L 03/27/24 13:16 ABG PO2/FiO2 Ratio 208 03/27/24 13:16 ABG HCO3 17.3 mmol/L (22-26) L 03/27/24 13:16 ABG O2 Saturation 92.4 03/27/24 13:16 ABG Base Excess -3.6 mmol/L (-2.0-2.0) L 03/27/24 13:16 [place] Test Pos 03/27/24 13:16 A-a O2 Gradient 14.6 mmHg (5-10) H 03/27/24 13:16 Hematocrit 48.0 % (37-47) H 03/27/24 13:16 Hgb O2 Saturation 90.1 % (95-100) L 03/27/24 13:16 Carboxyhemoglobin 1.5 %THgb (0.4-20.1) 03/27/24 13:16 Methemoglobin 0.9 % (0.4-1.5) 03/27/24 13:16 Total Hemoglobin 15.7 g/dL (12-16) 03/27/24 13:16 Sodium 140.0 mmol/L (131-143) 03/27/24 13:16 Potassium 4.5 mmol/L (3.5-5.0) 03/27/24 13:16 Glucose 144.0 mg/dL (70-115) H 03/27/24 13:16 Ionized Calcium 1.2 mmol/L (1.1-1.4) 03/27/24 13:16 O2 Delivery Device Nc 03/27/24 13:16 O2 Liters/Min 2.0 % 03/27/24 13:16 FiO2 28.0 % 03/27/24 13:16 Mechanism Assembler ID Cak 03/27/24 13:16 Sodium 135 mmol/L (136-145) L 04/03/24 03:16 Potassium 4.5 mmol/L (3.5-5.1) 04/03/24 03:16 Chloride 105 mmol/L (98-107) 04/03/24 03:16 Carbon Dioxide 20 mmol/L (22-29) L 04/03/24 03:16 Anion Gap 14.5 (5-19) 04/03/24 03:16 BUN 33 mg/dL (8-23) H 04/03/24 03:16 Creatinine 0.9 mg/dL (0.5-0.9) 04/03/24 03:16 GFR Calculation 62.1 mL/min (90-130) L 04/03/24 03:16 Glucose 97 mg/dL (65-115) 04/03/24 03:16 Calculated Osmolality 287 mOsm/kg (285-295) 04/03/24 03:16 Lactic Acid 2.5 mmol/L (0.5-2.2) H 03/27/24 13:32 Lactic Acid (Sepsis) 1.3 mmol/L (0.5-2.2) 03/27/24 17:08 Calcium 8.4 mg/dL (8.5-10.5) L 04/03/24 03:16 Magnesium 2.0 mg/dL (1.7-2.3) 04/01/24 05:14 Total Bilirubin 0.2 mg/dL (0.15-1.2) 04/03/24 03:16 AST 15 U/L (0-32) 04/03/24 03:16 ALT 11 U/L (0-33) 04/03/24 03:16 Alkaline Phosphatase 71 U/L (35-105) 04/03/24 03:16 Troponin T Baseline 40 ng/L (0-10) H 03/27/24 13:32 Troponin T 120 Minute 28.82 ng/L (0-10) H 03/27/24 15:42 Delta Troponin T -11.18 ABS# (0-10) L 03/27/24 15:42 Troponin T Hi Sens 6Hr 39.74 ng/L (0-10) H 03/27/24 19:32 Troponin T Hi Sens 6Hr Delta -0.26 ng/L (0-12) L 03/27/24 19:32 Total Protein 5.3 g/dL (6.6-8.7) L 04/03/24 03:16 Albumin 3.2 g/dL (3.5-5.2) L 04/03/24 03:16 Globulin 2.1 g/dL (1.3-4.6) 04/03/24 03:16 Lipase 72 U/L (13-60) H 04/02/24 02:56 Procalcitonin 0.16 ng/mL (0-0.5) 04/02/24 02:56 Urine Color Yellow (Yellow) 03/27/24 15:26 Urine Appearance Clear (CLEAR) 03/27/24 15:26 Urine pH 6.5 (5-7) 03/27/24 15:26 Ur Specific [place] 1.036 (1.005-1.030) H 03/27/24 15:26 Urine Protein 2+ (Negative) A 03/27/24 15: Urine Glucose (UA) Negative (Normal) 03/27/24 15: Urine Ketones Negative (Negative) 03/27/24 15: Urine Blood Negative (Negative) 03/27/24 15: Urine Nitrate Negative (Negative) 03/27/24 15: Urine Bilirubin Negative (Negative) 03/27/24 15: Urine Urobilinogen 0.2 mg/dL (Negative) 03/27/24 15:26 Ur Leukocyte Esterase Negative (Negative) 03/27/24 15:26 Urine RBC 0-2 /hpf (0-2) 03/27/24 15:26 Urine WBC 11-20 /hpf (0-5) H 03/27/24 15:26 Ur Squamous Epith Cells 0-5 /hpf (0-5) 03/27/24 15:26 Amorphous Sediment Not Reportable 03/27/24 15:26 Urine Bacteria None seen /hpf (NONE) 03/27/24 15:26 Hyaline Casts 17.37 /lpf 03/27/24 15:26 Coarse Granular Casts Rare /lpf 03/27/24 15:26 Nasal MRSA (PCR) Not detected (Not Detecte) 03/27/24 21:54 Coronavirus (PCR) Positive (Negative) A 03/27/24 21:54 Influenza A (PCR) Negative (Negative) 03/27/24 21:54 Influenza Type B (PCR) Negative (Negative) 03/27/24 21:54 RSV (PCR) Negative (Negative) 03/27/24 21:54 Vitals Last Vital Signs Temp 97.9 F 04/04/24 11:40 Pulse 91 04/04/24 14:00 Resp 19 H 04/04/24 11:40 BP 140/117 04/04/24 11:40 Pulse Ox 94 04/04/24 11:40 O2 Del Method Room Air 04/04/24 11:40 O2 Flow Rate 3 03/30/24 11:47 Discharge Plan Discharge Patient Disposition: Home Health Service Condition: Stable Prescriptions: New amiodarone [Pacerone] 200 mg Tablet 200 mg PO BID 30 Days Qty: 60 0RF metronidazole 500 mg Tablet 500 mg PO TID 3 Days Qty: 9 0RF levofloxacin 750 mg Tablet 750 mg PO DAILY 3 Days Qty: 3 0RF Continued Eliquis 5 mg tablet 5 mg PO BID levothyroxine 50 mcg capsule 75 mcg PO DAILY dorzolamide 2 % drops 1 drp ophthalmic (eye) TID Rx Instructions: both eyes hydralazine 25 mg tablet 25 mg PO TID diltiazem HCl [Tiadylt ER] 120 mg capsule,extended release 24 hr 120 mg PO DAILY diltiazem HCl [Tiadylt ER] 240 mg capsule,extended release 24 hr 240 mg PO DAILY ondansetron 8 mg tablet,disintegrating 8 mg PO Q6H Qty: 14 0RF Rx Instructions: Take 1/2-1 tab every 6 hours as needed for nausea and vomiting furosemide 20 mg tablet 20 mg PO DAILY Qty: 5 0RF Discharge Orders: Discharge Order (Routine); Ordered 04/04/24 Ordered By: Sulema Hernandez Other Ambulatory Orders: DME: Greg (Order) Location: None Selected Ordered By: Sulema Hernandez Referrals: [facility] [Outside] Mega Martinez MD [Primary Care Provider] - 04/10/24 11:00 am Cata Okeefe FNP [Nurse Practitioner] - 1 week Patient Instructions: Metronidazole (By mouth), Amiodarone (By mouth) (Cordarone, Pacerone), Levofloxacin (By mouth) (Levaquin, Levaquin Leva-honorio), Acute Kidney Injury (DC), Hyperkalemia (DC), COVID-19 (Coronavirus Disease 2019) (DC), Opioid Safety Discharge Attestations Time Spent in Discharge Care*: greater than 30 min Quality Metrics Clinical Quality Measures [ No reported AMI, CVA or VTE this stay] Coding Level of Care Code Acute Code for Chg Fwd Diagnoses Atrial fibrillation with rapid ventricular response I48.91 COVID-19 U07.1 Pancreatitis K85.90 Acute pancreatitis complication: no infection or necrosis Chronicity: acute Pancreatitis type: unspecified pancreatitis type Sepsis A41.9 Right upper lobe pneumonia J18.9 Pneumonia type: due to unspecified organism Dilated cbd, acquired K83.8 Acute encephalopathy G93.40 Hyperkalemia E87.5 DONELL (acute kidney injury) N17.9
== END 2024-04-04 20:03 | disposition home health service (06) | DRG 871 ==
LOC: ER 19:05 → CSU 19:29
PROVIDERS: Admitting Provider Internal Medicine; Emergency Provider Family Medicine; PCP Family Medicine; Visit Provider Student in an Organized Health Care Education/Training Program
DX: A41.9 Sepsis, unspecified organism (principal); G93.41 Metabolic encephalopathy; J12.82 Pneumonia due to coronavirus disease 2019; U07.1 COVID-19; K85.90 Acute pancreatitis without necrosis or infection, unspecified; J15.9 Unspecified bacterial pneumonia; N17.9 Acute kidney failure, unspecified; E87.20 Acidosis, unspecified; N39.0 Urinary tract infection, site not specified; R65.20 Severe sepsis without septic shock; I48.91 Unspecified atrial fibrillation; I10 Essential (primary) hypertension; G89.29 Other chronic pain; M54.9 Dorsalgia, unspecified; E87.5 Hyperkalemia; G62.9 Polyneuropathy, unspecified; H40.9 Unspecified glaucoma; E86.0 Dehydration; F17.210 Nicotine dependence, cigarettes, uncomplicated; Z79.01 Long term (current) use of anticoagulants; Z88.1 Allergy status to other antibiotic agents; Z85.09 Personal history of malignant neoplasm of other digestive organs; Z88.0 Allergy status to penicillin; Z90.49 Acquired absence of other specified parts of digestive tract; Z90.710 Acquired absence of both cervix and uterus
CPT/HCPCS: 0241U; 36415; 36600; 51702; 71275; 74177; 76700; 80051; 80053; 81001; 82330; 82805; 83605; 83690; 83735; 84132; 84145; 84484; 85025; 85378; 86403; 87040; 87449; 93005; 94760; 96365; 96366; 96367; 96372; 96375; 96376; 97110; 97116; 97162; 97530; 99291; A9270; J0248; J0283; J1100; J1171; J1650; J1956; J2270; J2405; J2470; J3490; J7030; J7512; Q0162

== ENCOUNTER 2024-04-14 15:19 | Emergency (ER) | payer MEDICARE, SELFPAY ==
[2024-04-14 16:03] VITALS: BP 114/77; PULSE 114; RESP 18; TEMP 36.4; O2SAT 92
--- NOTE | 2024-04-14 16:37 | XRR_ITS ---
PROCEDURE INFORMATION: Exam: XR Abdomen Exam date and time: 04/14/2024 4:38 PM Age: 68 years old Clinical indication: Prior surgery; Surgery date: 6+ months; Patient HX: Abdominal pain; HX liver CA with liver resection; Constipation; Bilateral flank pain TECHNIQUE: Imaging protocol: Radiologic exam of the abdomen. Views: Frontal supine view of the abdomen. 1 View. COMPARISON: CT angio chest w abd pel w con 03/27/2024 2:59 PM FINDINGS: Gastrointestinal tract: Increased abdominal density in the right upper quadrant likely representing fluid-filled loops of bowel. There is excessive colonic stool content. Consistent with constipation. Intraperitoneal space: Multiple right upper quadrant surgical clips Bones/joints: Lumbar spondylosis XR/XR abdomen 1V* [id number] IMPRESSION: There is excessive colonic stool content. Consistent with constipation.
[2024-04-14 16:55] LABS: Basophils % 0.8 %; Eosinophils # 0.1 10^3/uL (0.0-0.8); Eosinophils % 1.4 %; Hematocrit 38.4 % (36-47); Lymphocytes # 1.3 10^3/uL (0.8-4.8); Lymphocytes % 26.2 %; Mean Corpuscular HGB Conc 30.7 g/dL (30-55); Mean Corpuscular Hemoglobin 23.7 pg (27-33); Mean Corpuscular Volume 77.1 fl (85-98); Mean Platelet Volume 10.2 fL (7.4-10.4); Monocytes # 0.5 10^3/uL (0.2-0.9); Monocytes % 10.9 %; Neutrophils # 2.95 10^3/uL (1.8-7.7); Neutrophils % 60.5 %; Nucleated Red Blood Cells % 0 %; Platelet Count 179 10^3/cmm (157-399); Red Blood Count 4.98 10^6/uL (3.85-5.65); Red Cell Distribution Width 20.7 % (12.1-15.1); White Blood Count 4.88 10^3/uL (3.29-11.43)
--- NOTE | 2024-04-14 17:02 | W.ED.ABDPA2 ---
HPI - Abdominal Pain General: Chief Complaint: Abdominal Pain Stated Complaint: swollen legs, need CT scan pancreas? 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 Says since has been home she has had much worsening swelling in her legs. She says she was taken off of her diuretic. She is complaining of abdominal pain. She points to the right lateral side of her abdomen. She says she thinks its her pancreas again. She does have some mild tenderness in her epigastrium. But the this is not where she was describing her pain. She has not had a good bowel movement in several days. Family also concern for urinary tract infection. Related Data Home Medications Medication Instructions Recorded Confirmed apixaban 5 mg tablet (Eliquis) 5 mg PO BID 08/01/19 03/27/24 dorzolamide 2 % eye drops 1 drp ophthalmic (eye) TID 04/20/21 03/27/24 diltiazem HCl 120 mg capsule,24 120 mg PO DAILY 01/31/24 03/27/24 hr,extended release (Tiadylt ER) hydralazine 25 mg tablet 25 mg PO TID 01/31/24 03/27/24 levothyroxine 50 mcg capsule 75 mcg PO DAILY 01/31/24 03/27/24 diltiazem HCl 240 mg capsule,24 240 mg PO DAILY 03/14/24 03/27/24 hr,extended release (Tiadylt ER) Previous Rx's Medication Instructions Recorded furosemide 20 mg tablet 20 mg PO DAILY #5 tabs 05/27/23 ondansetron 8 mg disintegrating 8 mg PO Q6H #14 tabs 03/14/24 tablet amiodarone 200 mg tablet (Pacerone) 200 mg PO BID 30 days #60 tabs 04/04/24 cefdinir 300 mg capsule 300 mg PO BID 5 days #10 caps 04/14/24 furosemide 40 mg tablet (Lasix) 40 mg PO QAM 5 days #5 tabs 04/14/24 Allergies Allergy/AdvReac Type Severity Reaction Status Date / Time orange juice Allergy Intermediate ADR-Vomitin Verified 04/14/24 16:14 g potassium Allergy Intermediate sick in Verified 04/14/24 16:14 the stomach amoxicillin Allergy unk Verified 04/14/24 16:14 buspirone Allergy unk Verified 04/14/24 16:14 hydralazine Allergy coughing Verified 04/14/24 16:14 and nausea Penicillins Allergy shortness Verified 04/14/24 16:14 of breath povidone-iodine Allergy unk Verified 04/14/24 16:14 [From Betadine] soap [From Betadine] Allergy unk Verified 04/14/24 16:14 Irltyvl-KQG-BbK Reductase Allergy FLu like Verified 04/14/24 16:14 Inhibitor symptoms [Qhgkflo-Tmi-Cpy Reductase Inhibitor] carvedilol AdvReac Severe cough Verified 04/14/24 16:14 amlodipine AdvReac BLE edema Verified 04/14/24 16:14 valsartan AdvReac unknown Verified 04/14/24 16:14 PFSH ED PFSH: Medical History Chest pain Peripheral neuropathy Glaucoma Herpes genitalis 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 Brother CAD (coronary artery disease) Brother , 2 brothers of heart disease CAD (coronary artery disease) Denies family history of Diabetes Clotting disorder Dementia Hyperlipidemia Psychiatric illness Chronic kidney disease (CKD) Suicide Anesthesia complication Bleeding disorder Family history of premature coronary artery disease Lung disease Cancer Hypertension Stroke Social History Smoking and tobacco/nicotine status: current every day tobacco/nicotine user Alcohol intake: never Substance/Drug Use: never Physical Exam Narrative: EXAM NARRATIVE: General: Alert, no acute distress. Skin: Warm, dry. Head: Normocephalic, atraumatic. Neck: Supple, trachea midline. Eye: Extraocular movements are intact. Ears, nose, mouth and throat: mucosa moist. Cardiovascular: Regular, Normal peripheral perfusion. Respiratory: Lungs are clear to auscultation, respirations are non-labored, breath sounds are equal, Symmetrical chest wall expansion. Gastrointestinal: Soft, Nontender, Non distended Musculoskeletal: Normal ROM, no deformity. Neurological: Alert and oriented, No focal neurological deficit observed. Psychiatric: Cooperative, appropriate mood & affect. Course Vital Signs: Vital signs: Vital Signs Temperature 97.6 F 04/14/24 16:03 Pulse Rate 116 H 04/14/24 19:56 Respiratory Rate 16 04/14/24 19:56 Blood Pressure 115/84 04/14/24 19:56 Pulse Oximetry 96 04/14/24 19:56 Oxygen Delivery Me thod Room Air 04/14/24 16:03 MDM - Abdominal Pain Medical Decision Making Medical decision making: Differential diagnosis including but not limited to and based on the above HPI, review of systems and physical exam: Patient with edema would have concern for heart failure. She is complaining of right sided abdominal pain. She is concerned about pancreatitis so a lipase was ordered. I would also have concern for UTI and constipation. Orders placed to evaluate differential diagnosis based on the above differential, HPI and physical exam Lab Review: Laboratory results were reviewed and interpreted by myself the emergency room physician. No leukocytosis. No anemia. No renal failure. BUN/creatinine have remained stable. X-ray of the abdomen shows constipation. This was reviewed and interpreted by myself the emergency room physician. I also reviewed the radiology report. Chest x-ray: Mild cardiomegaly. No acute process. No infiltrate. No pneumothorax. This was reviewed and interpreted by myself the emergency room physician. I also reviewed the radiology report. I reviewed the patient's medical record. Reexamination: Patient remained stable. She still has some swelling. She is received some Lasix here. She understands that this likely is not her pancreas this time his pain is not in the right location and her lipase is not elevated at this time. Assessment and plan: Urinary tract infection Abdominal pain Edema ?IV Lasix here in the emergency room and a 5-day course of Lasix. She can discuss resumption of this with her primary. It was stopped secondary to renal failure which is now stable. ?Medications to treat her constipation are given. - Discharged home - Discussed findings and plan with patient. Answered any questions. - All laboratory values were reviewed and interpreted personally by myself, the ER physician - All imaging was reviewed and interpreted personally by myself, the ER physician. - Evaluation and treatment of this problem were appropriate in the emergency setting Lab Data 04/14/24 16:49 04/14/24 16:49 Labs/Radiology: Radiology Impressions Abdomen X-Ray 04/14/24 16:37 IMPRESSION: There is excessive colonic stool content. Consistent with constipation. Chest X-Ray 04/14/24 17:27 IMPRESSION: Enlarged cardiac silhouette. Laboratory Results WBC 4.88 10^3/uL (3.29-11.43) 04/14/24 16:49 RBC 4.98 10^6/uL (3.85-5.65) 04/14/24 16:49 Hgb 11.80 g/dL (11.27-16.99) 04/14/24 16:49 Hct 38.4 % (36-47) 04/14/24 16:49 MCV 77.1 fl (85-98) L 04/14/24 16:49 MCH 23.7 pg (27-33) L 04/14/24 16:49 MCHC 30.7 g/dL (30-55) 04/14/24 16:49 RDW 20.7 % (12.1-15.1) H 04/14/24 16:49 Plt Count 179 10^3/cmm (157-399) 04/14/24 16:49 MPV 10.2 fL (7.4-10.4) 04/14/24 16:49 Neut % (Auto) 60.5 % 04/14/24 16:49 Lymph % (Auto) 26.2 % 04/14/24 16:49 [place] % (Auto) 10.9 % 04/14/24 16:49 Eos % (Auto) 1.4 % 04/14/24 16:49 Baso % (Auto) 0.8 % 04/14/24 16:49 Neut # (Auto) 2.95 10^3/uL (1.8-7.7) 04/14/24 16:49 Lymph # (Auto) 1.3 10^3/uL (0.8-4.8) 04/14/24 16:49 [place] # (Auto) 0.5 10^3/uL (0.2-0.9) 04/14/24 16:49 Eos # (Auto) 0.1 10^3/uL (0.0-0.8) 04/14/24 16:49 Baso # (Auto) 0.0 10^3/uL (0.0-0.1) 04/14/24 16:49 Nucleated RBC % (auto) 0 % 04/14/24 16:49 Nucleated RBCs # 0.0 /100WBC 04/14/24 16:49 Sodium 133 mmol/L (136-145) L 04/14/24 16:49 Potassium 3.8 mmol/L (3.5-5.1) 04/14/24 16:49 Chloride 96 mmol/L (98-107) L 04/14/24 16:49 Carbon Dioxide 27 mmol/L (22-29) 04/14/24 16:49 Anion Gap 13.8 (5-19) 04/14/24 16:49 BUN 17 mg/dL (8-23) 04/14/24 16:49 Creatinine 1.0 mg/dL (0.5-0.9) H 04/14/24 16:49 GFR Calculation 55.0 mL/min (90-130) L 04/14/24 16:49 Glucose 94 mg/dL (65-115) 04/14/24 16:49 Calculated Osmolality 277 mOsm/kg (285-295) L 04/14/24 16:49 Lactic Acid 1.2 mmol/L (0.5-2.2) 04/14/24 16:49 Calcium 8.4 mg/dL (8.5-10.5) L 04/14/24 16:49 Total Bilirubin 0.2 mg/dL (0.15-1.2) 04/14/24 16:49 AST 16 U/L (0-32) 04/14/24 16:49 ALT 14 U/L (0-33) 04/14/24 16:49 Alkaline Phosphatase 75 U/L (35-105) 04/14/24 16:49 Troponin T Baseline 30 ng/L (0-10) H 04/14/24 16:49 Troponin T 120 Minute 27.83 ng/L (0-10) H 04/14/24 18:39 Delta Troponin T -2.17 ABS# (0-10) L 04/14/24 18:39 NT-Pro-B Natriuret Pep 2016 pg/mL (0-125) H 04/14/24 16:49 Total Protein 6.2 g/dL (6.6-8.7) L 04/14/24 16:49 Albumin 3.4 g/dL (3.5-5.2) L 04/14/24 16:49 Globulin 2.8 g/dL (1.3-4.6) 04/14/24 16:49 Lipase 40 U/L (13-60) 04/14/24 16:49 Urine Color Yellow (Yellow) 04/14/24 18:16 Urine Appearance Clear (CLEAR) 04/14/24 18:16 Urine pH 6.0 (5-7) 04/14/24 18:16 Ur Specific [place] 1.016 (1.005-1.030) 04/14/24 18:16 Urine Protein 1+ (Negative) A 04/14/24 18:16 Urine Glucose (UA) Negative (Normal) 04/14/24 18:16 Urine Ketones Negative (Negative) 04/14/24 18:16 Urine Blood Negative (Negative) 04/14/24 18:16 Urine Nitrate Negative (Negative) 04/14/24 18:16 Urine Bilirubin Negative (Negative) 04/14/24 18:16 Urine Urobilinogen 1.0 mg/dL (Negative) 04/14/24 18:16 Ur Leukocyte Esterase 1+ (Negative) A 04/14/24 18:16 Urine RBC 0-2 /hpf (0-2) 04/14/24 18:16 Urine WBC 21-50 /hpf (0-5) H 04/14/24 18:16 Ur Squamous Epith Cells 0-5 /hpf (0-5) 04/14/24 18:16 Amorphous Sediment Not Reportable 04/14/24 18:16 Urine Bacteria None seen /hpf (NONE) 04/14/24 18:16 Hyaline Casts 0.81 /lpf 04/14/24 18:16 All radiology interpretation(s) finalized by discharge Discharge Plan Discharge Patient Disposition: Home Clinical Impression: Urinary tract infection, Edema, Constipation Condition: Stable Prescriptions: New furosemide [Lasix] 40 mg tablet 40 mg PO QAM 5 Days Qty: 5 0RF cefdinir 300 mg capsule 300 mg PO BID 5 Days Qty: 10 0RF No Action Eliquis 5 mg tablet 5 mg PO BID levothyroxine 50 mcg capsule 75 mcg PO DAILY dorzolamide 2 % drops 1 drp ophthalmic (eye) TID Rx Instructions: both eyes hydralazine 25 mg tablet 25 mg PO TID diltiazem HCl [Tiadylt ER] 120 mg capsule,extended release 24 hr 120 mg PO DAILY diltiazem HCl [Tiadylt ER] 240 mg capsule,extended release 24 hr 240 mg PO DAILY ondansetron 8 mg tablet,disintegrating 8 mg PO Q6H Qty: 14 0RF Rx Instructions: Take 1/2-1 tab every 6 hours as needed for nausea and vomiting amiodarone [Pacerone] 200 mg Tablet 200 mg PO BID 30 Days Qty: 60 0RF furosemide 20 mg tablet 20 mg PO DAILY Qty: 5 0RF Discharge Orders: Discharge ED (Routine); Ordered 04/14/24 Ordered By: Sonam Mcgowan Referrals: Mega Martinez MD [Primary Care Provider] - Discharge Diet: Usual diet Discharge Activity: Increase activity as tolerated Patient Instructions: Leg Edema (ED), Urinary Tract Infection in Older Adults (ED), Opioid Safety, Pain Management Activity Restrictions/Additional Instructions: Please take about a cup of GoLytely every 1-2 hours while awake for the next day or 2 and to you have good stool output. Then take MiraLAX once to twice daily to keep your stools soft. Thank you for choosing [facility] for your healthcare needs today. Please realize this is an emergency room and that we are providing you with a medical screening exam and this may not be complete and all inclusive of all the testing and or work up that you may need to determine your ailment or severity of your illness. You have been screened and evaluated and felt safe for discharge. Health conditions do change or evolve sometimes and as such it is important that you follow up with your Primary Doctor to be re checked, 3-5 days is a general good time frame for follow up. You are always welcome to return to the ED for re assessment if your symptoms are worsening or you have new concerns Coding Level of Care Code ED Electrical Cad Designer for Jordan Espinoza
[2024-04-14 17:12] LABS: Lactic Sepsis W/Reflex 1.2 mmol/L (0.5-2.2)
[2024-04-14 17:22] LABS: Alanine Aminotransferase 14 U/L (0-33); Albumin Level 3.4 g/dL (3.5-5.2); Alkaline Phosphatase 75 U/L (35-105); Anion Gap 13.8 (5-19); Aspartate Amino Transferase 16 U/L (0-32); Blood Urea Nitrogen 17 mg/dL (8-23); Calcium 8.4 mg/dL (8.5-10.5); Carbon Dioxide 27 mmol/L (22-29); Chloride 96 mmol/L (98-107); Creatinine Clr Calc Pharmacy 56.8333; Globulin 2.8 g/dL (1.3-4.6); Glucose 94 mg/dL (65-115); Lipase 40 U/L (13-60); NT Pro B Type Natriuretic Pept 2016 pg/mL (0-125); Osmolality Calculated 277 mOsm/kg (285-295); Potassium 3.8 mmol/L (3.5-5.1); Sodium 133 mmol/L (136-145); Total Bilirubin 0.2 mg/dL (0.15-1.2); Total Protein 6.2 g/dL (6.6-8.7)
--- NOTE | 2024-04-14 17:27 | XRR_ITS ---
PROCEDURE INFORMATION: Exam: XR Chest Exam date and time: 04/14/2024 5:32 PM Age: 68 years old Clinical indication: Patient HX: Cough; SOB; Fluid retention; Bilateral leg swelling TECHNIQUE: Imaging protocol: Radiologic exam of the chest. Views: 1 view. COMPARISON: CT angio chest w abd pel w con 03/27/2024 2:59 PM FINDINGS: Tubes, catheters and devices: Dual-chamber left anterior chest wall pacemaker Lungs: Unremarkable. No consolidation. Pleural spaces: Unremarkable. No pleural effusion. No pneumothorax. Heart/Mediastinum: Enlarged cardiac silhouette Bones/joints: Unremarkable. XR/XR chest 1V portable [id number] IMPRESSION: Enlarged cardiac silhouette.
[2024-04-14 17:48] LABS: Troponin(5th) Baseline 30 ng/L (0-10)
[2024-04-14 18:32] LABS: Bilirubin Urine Negative (Negative); Blood Urine Negative (Negative); Glucose Urine UA Negative (Normal); Ketones Urine Negative (Negative); Leukocyte Esterase Urine 1+ (Negative); Nitrate Urine Negative (Negative); Protein Urine 1+ (Negative); Specific Gravity, Urine 1.016 (1.005-1.030); Urine Appearance Clear (CLEAR); Urine Color Yellow (Yellow)
[2024-04-14 18:34] LABS: Add Urine Microscopic? YES; Bacteria Urine None Seen /hpf; Hyaline Casts Urine 0.81 /lpf; RBC Urine 0-2 /hpf (0-2); Squamous Epithelial Cell Urine 0-5 /hpf (0-5); WBC Urine 21-50 /hpf (0-5)
[2024-04-14] MEDS: FUROsemide 10 mg/mL SDV 10mL 60 MG IVP (18:53)
[2024-04-14 19:02] LABS: Troponin 5 2HR 27.83 ng/L (0-10)
[2024-04-14 19:03] LABS: Troponin 5 2HR Delta -2.17 ABS# (0-10)
[2024-04-14] MEDS: cefTRIAXone 1,000 mg SDV 1000 MG IVP (19:36)
[2024-04-14] MEDS: peg /e-lyte soln 4,000 mL Btl 4000 ML PO (19:46)
[2024-04-14 19:56] VITALS: BP 115/84; PULSE 116; RESP 16; O2SAT 96
== END 2024-04-14 20:01 | disposition home or self-care (01) ==
PROVIDERS: Family Medicine; Emergency Provider Emergency Medicine; PCP Family Medicine
DX: N39.0 Urinary tract infection, site not specified (principal); R60.9 Edema, unspecified; K59.00 Constipation, unspecified; Z72.0 Tobacco use; Z79.01 Long term (current) use of anticoagulants; Z85.09 Personal history of malignant neoplasm of other digestive organs
CPT/HCPCS: 36415; 71045; 74018; 80053; 81001; 83605; 83690; 83880; 84484; 85025; 96374; 96375; 99285; J0696; J1940

== ENCOUNTER 2024-04-20 12:27 | Emergency (ER) | payer MEDICARE, SELFPAY ==
--- NOTE | 2024-04-20 12:28 | XR_ITS ---
WS: [id number] Portable AP upright chest, 04/20/2024 Clinical Data: afib Comparison: Portable chest, 04/14/2024 Findings: No nodules, masses or effusions are seen. The heart is enlarged. The pulmonary vascularity is not increased. No pneumonia or pneumothorax is seen. The generator for 2-lead cardiac pacemaker ov erlies the left lateral chest. The aortic arch and descending thoracic aorta show calcification and t ortuosity. Monitor leads are on the chest wall. XR/XR chest 1V portable [id number] Impression: Cardiomegaly and atherosclerosis.
[2024-04-20 12:32] VITALS: BP 112/83; PULSE 128; RESP 17; TEMP 36.3; O2SAT 90; BMI 25.7
--- NOTE | 2024-04-20 12:42 | ECG_ITS ---
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 Measurements Intervals [place] Rate: 121 P: 0 TX: 0 QRS: 44 QRSD: 107 T: 224 QT: 334 QTc: 475 Interpretive Statements ATRIAL FIBRILLATION WITH RAPID VENTRICULAR RESPONSE POSSIBLE LEFT VENTRICULAR HYPERTROPHY [VOLTAGE CRITERIA PLUS LAE OR QRS WIDENING] ST DEVIATION AND MODERATE T-WAVE ABNORMALITY, CONSIDER ANTEROLATERAL ISCHEMIA [-0.1+ mV T-WAVE IN V3-V6] ST DEVIATION AND MODERATE T-WAVE ABNORMALITY, CONSIDER INFERIOR ISCHEMIA [-0.1+ mV T-WAVE IN II/aVF] Compared to ECG 03/27/2024 21:46:07 T-wave abnormality now present Possible ischemia now present Intraventricular conduction delay no longer present Electronically Signed On 04-20-2024 22:36:12 APPLIANCE SALES ASSOCIATE by Ida Phipps M.D. [email or web address]
--- NOTE | 2024-04-20 12:52 | ED_ITS ---
HPI - Arrhythmia/Palpitations 2 General: Chief Complaint: Arrhythmia/Palpitations Stated Complaint: sent [facility] AFib abn HR Time Seen by Provider: 04/20/24 12:47 Source: patient Mode of arrival: ambulatory Limitations: no limitations History of Present Illness: 68-year-old female has a history of A-fi b patient brought here by heart clinic they are doing a defibrillator check and noticed that she is in A-fib with RVR heart rates in the 180s and her heart rate here is in the 120s she states she stopped taking her medications over the last week and a half. Patient states she has had some palpitation but denies any pain she denies any shortness of breath to me denies any fever. Associated symptoms: Deny nausea or vomiting Related Data Home Medications Medication Instructions Recorded Confirmed apixaban 5 mg tablet (Eliquis) 5 mg PO BID 08/01/19 04/20/24 dorzolamide 2 % eye drops 1 drp ophthalmic (eye) TID 04/20/21 04/20/24 diltiazem HCl 120 mg capsule,24 120 mg PO DAILY 01/31/24 04/20/24 hr,extended release (Tiadylt ER) hydralazine 25 mg tablet 25 mg PO TID 01/31/24 04/20/24 cefdinir 300 mg capsule 300 mg PO BID 04/20/24 04/20/24 ferrous gluconate 324 mg (38 mg 324 mg PO DAILY 04/20/24 04/20/24 iron) tablet fluticasone fur. 200 mcg-umeclid 1 inh inhalation DAILY 04/20/24 04/20/24 62.5 mcg-vilant 25 mcg inhalat.powder (Trelegy Ellipta) furosemide 40 mg tablet 40 mg PO DAILY 04/20/24 04/20/24 hydrocodone 7.5 mg-acetaminophen 1 tab PO TID PRN Pain 04/20/24 04/20/24 325 mg tablet latanoprost 0.005 % eye drops 1 drp ophthalmic (eye) QPM 04/20/24 04/20/24 levothyroxine 75 mcg tablet 75 mcg PO QAM 04/20/24 04/20/24 potassium chloride 20 mEq 20 meq PO DAILY 04/20/24 04/20/24 tablet,extended release Previous Rx's Medication Instructions Recorded ondansetron 8 mg disintegrating 8 mg PO Q6H #14 tabs 03/14/24 tablet amiodarone 200 mg tablet (Pacerone) 200 mg PO BID 30 days #60 tabs 04/04/24 Allergies Allergy/AdvReac Type Severity Reaction Status Date / Time orange juice Allergy Intermediate ADR-Vomitin Verified 04/20/24 12:38 g potassium Allergy Intermediate sick in Verified 04/20/24 12:38 the stomach amoxicillin Allergy unk Verified 04/20/24 12:38 buspirone Allergy unk Verified 04/20/24 12:38 hydralazine Allergy coughing Verified 04/20/24 12:38 and nausea Penicillins Allergy shortness Verified 04/20/24 12:38 of breath povidone-iodine Allergy unk Verified 04/20/24 12:38 [From Betadine] soap [From Betadine] Allergy unk Verified 04/20/24 12:38 Iudieva-WEB-PuF Reductase Allergy FLu like Verified 04/20/24 12:38 Inhibitor symptoms [Urmpgsw-Nqw-Zup Reductase Inhibitor] carvedilol AdvReac Severe cough Verified 04/20/24 12:38 amlodipine AdvReac BLE edema Verified 04/20/24 12:38 valsartan AdvReac unknown Verified 04/20/24 12:38 Review of Systems 2 Const: Denies: fever(s), chills, body aches or change in appetite ENMT: Denies: throat pain or dental pain Card: Reports: palpitations; Denies: chest pain Resp: Denies: dyspnea GI: Denies: abdominal pain, nausea, vomiting or diarrhea Musc: Denies: neck pain or back pain Skin/Breast: Denies: rash Neuro: Denies: headache(s) PFSH ED 2 PFSH: Medical History Chest pain Peripheral neuropathy Glaucoma Herpes genitalis 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 Brother CAD (coronary artery disease) Brother , 2 brothers of heart disease CAD (coronary artery disease) Denies family history of Diabetes Clotting disorder Dementia Hyperlipidemia Psychiatric illness Chronic kidney disease (CKD) Suicide Anesthesia complication Bleeding disorder Family history of premature coronary artery disease Lung disease Cancer Hypertension Stroke Social History Smoking and tobacco/nicotine status: current every day tobacco/nicotine user Alcohol intake: never Substance/Drug Use: never Physical Exam 2 Const: COMMON NORMALS: no acute distress, patient oriented x3 and healthy appearing HENMT: COMMON NORMALS: normocephalic and atraumatic HEAD & SCALP: n ormocephalic and atraumatic Neck/C-Spine: COMMON NORMALS: full ROM and supple Chest: COMMONS NORMALS: normal inspection of the chest Resp: COMMON NORMALS: normal respiratory effort, No retractions, No use of accessory muscles and clear to auscultation bilaterally AUSCULTATION: clear to auscultation bilaterally Cardio: RATE: tachycardic RHYTHM: abnormal rhythm irregularly irregular GI: COMMON NORMALS: Normal to inspection, nondistended, normoactive bowel sounds present, Soft to palpation, non-tender and no masses PALPATION: Yes Soft to palpation Extremity: COMMON NORMALS: normal to inspection and full ROM Neuro: COMMON NORMALS: patient oriented x3, moves all extremities and no focal motor deficits Psych: COMMON NORMALS: mental status grossly normal, Normal thought process present and cooperative THOUGHT PROCESS: Normal thought process present Skin: COMMON NORMALS: no rashes or lesions noted and no wounds GENERAL SKIN EXAM: no rashes or lesions noted Course 2 Vital Signs: Vital signs: Vital Signs Temperature 97.3 F L 04/20/24 12:32 Pulse Rate 128 H 04/20/24 13:22 Respiratory Rate 22 H 04/20/24 13:22 Blood Pressure 129/106 04/20/24 13:22 Pulse Oximetry 95 04/20/24 13:22 Oxygen Delivery Me thod Room Air 04/20/24 13:22 MDM - Arrhythmia/Palpitations Medical Decision Making Patient presents here with A-fib with RVR due to noncompliance with her medication heart rate here is improved blood works normal she stable for discharge at this time I instructed her it is very important for her to take her meds she states that she has at home is going to start taking them again. She is follow-up with PCP and return if worsening. Medical Records I reviewed the patient's medical records. Lab Data I reviewed the patient's lab results. 04/20/24 12:58 04/20/24 12:58 Radiology Impressions Chest X-Ray 04/20/24 12:28 Impression: Cardiomegaly and atherosclerosis. Laboratory Results WBC 3.12 10^3/uL (3.29-11.43) L 04/20/24 12:58 RBC 5.20 10^6/uL (3.85-5.65) 04/20/24 12:58 Hgb 12.50 g/dL (11.27-16.99) 04/20/24 12:58 Hct 40.1 % (36-47) 04/20/24 12:58 MCV 77.1 fl (85-98) L 04/20/24 12:58 MCH 24.0 pg (27-33) L 04/20/24 12:58 MCHC 31.2 g/dL (30-55) 04/20/24 12:58 RDW 19.7 % (12.1-15.1) H 04/20/24 12:58 Plt Count 245 10^3/cmm (157-399) 04/20/24 12:58 MPV 10.4 fL (7.4-10.4) 04/20/24 12:58 Neut % (Auto) 40.3 % 04/20/24 12:58 Lymph % (Auto) 34.3 % 04/20/24 12:58 [place] % (Auto) 19.6 % 04/20/24 12:58 Eos % (Auto) 4.5 % 04/20/24 12:58 Baso % (Auto) 1.0 % 04/20/24 12:58 Neut # (Auto) 1.26 10^3/uL (1.8-7.7) L 04/20/24 12:58 Lymph # (Auto) 1.1 10^3/uL (0.8-4.8) 04/20/24 12:58 [place] # (Auto) 0.6 10^3/uL (0.2-0.9) 04/20/24 12:58 Eos # (Auto) 0.1 10^3/uL (0.0-0.8) 04/20/24 12:58 Baso # (Auto) 0.0 10^3/uL (0.0-0.1) 04/20/24 12:58 Nucleated RBC % (auto) 0 % 04/20/24 12:58 Nucleated RBCs # 0.0 /100WBC 04/20/24 12:58 PT 13.40 SECONDS (12.1-14.9) 04/20/24 12:58 INR 0.99 (0.8-1.2) 04/20/24 12:58 Sodium 141 mmol/L (136-145) 04/20/24 12:58 Potassium 4.0 mmol/L (3.5-5.1) 04/20/24 12:58 Chloride 101 mmol/L (98-107) 04/20/24 12:58 Carbon Dioxide 26 mmol/L (22-29) 04/20/24 12:58 Anion Gap 18.0 (5-19) 04/20/24 12:58 BUN 19 mg/dL (8-23) 04/20/24 12:58 Creatinine 1.1 mg/dL (0.5-0.9) H 04/20/24 12:58 GFR Calculation 49.2 mL/min (90-130) L 04/20/24 12:58 Glucose 91 mg/dL (65-115) 04/20/24 12:58 Calculated Osmolality 294 mOsm/kg (285-295) 04/20/24 12:58 Calcium 9.4 mg/dL (8.5-10.5) 04/20/24 12:58 Total Bilirubin 0.3 mg/dL (0.15-1.2) 04/20/24 12:58 AST 24 U/L (0-32) 04/20/24 12:58 ALT 12 U/L (0-33) 04/20/24 12:58 Alkaline Phosphatase 130 U/L (35-105) H 04/20/24 12:58 Total Protein 7.2 g/dL (6.6-8.7) 04/20/24 12:58 Albumin 3.5 g/dL (3.5-5.2) 04/20/24 12:58 Globulin 3.7 g/dL (1.3-4.6) 04/20/24 12:58 TSH 9.78 uIU/mL (0.27-4.20) H 04/20/24 12:58 All radiology interpretation(s) finalized by discharge EKG Data EKG 1: I personally reviewed and interpreted this EKG as follows: EKG interpretation date: 04/20/24 EKG interpretation time: 12:42 Interpretation: afib with rvr hr [address] elevation qrs 107 qtc 406 Other EKG comments: Chest X-Ray 04/20/24 12:28 Impression: Cardiomegaly and atherosclerosis. Discharge Plan Discharge Patient Disposition: Home Clinical Impression: Atrial fibrillation Qualifiers: Atrial fibrillation type: unspecified chronic Qualified Code(s): I48.20 - Chronic atrial fibrillation, unspecified Condition: Stable Prescriptions: No Action Eliquis 5 mg tablet 5 mg PO BID dorzolamide 2 % drops 1 drp ophthalmic (eye) TID hydralazine 25 mg tablet 25 mg PO TID diltiazem HCl [Tiadylt ER] 120 mg capsule,extended release 24 hr 120 mg PO DAILY ondansetron 8 mg tablet,disintegrating 8 mg PO Q6H Qty: 14 0RF Rx Instructions: Take 1/2-1 tab every 6 hours as needed for nausea and vomiting amiodarone [Pacerone] 200 mg Tablet 200 mg PO BID 30 Days Qty: 60 0RF furosemide 40 mg tablet 40 mg PO DAILY latanoprost 0.005 % drops 1 drp ophthalmic (eye) QPM levothyroxine 75 mcg tablet 75 mcg PO QAM hydrocodone-acetaminophen 7.5-325 mg tablet 1 tab PO TID PRN (Reason: Pain) cefdinir 300 mg capsule 300 mg PO BID ferrous gluconate 324 mg (38 mg iron) tablet 324 mg PO DAILY potassium chloride 20 mEq tablet extended release 20 meq PO DAILY Trelegy Ellipta 200-62.5-25 mcg blister with device 1 inh INHALATION DAILY Discharge Orders: Discharge ED (Routine); Ordered 04/20/24 Ordered By: Nargis Polk Referrals: Mega Martinez MD [Primary Care Provider] - Discharge Diet: Advance as tolerated Discharge Activity: Resume usual activity Patient Instructions: A-fib (Atrial Fibrillation) (ED) Coding Level of Care Code 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
[2024-04-20] MEDS: dilTIAZem 5 mg/mL SDV 5 mL 15 MG IVP (13:21)
[2024-04-20 13:22] VITALS: BP 129/106; PULSE 128; RESP 22; O2SAT 95
[2024-04-20 13:25] LABS: Eosinophils # 0.1 10^3/uL (0.0-0.8); Eosinophils % 4.5 %; Hematocrit 40.1 % (36-47); Lymphocytes # 1.1 10^3/uL (0.8-4.8); Lymphocytes % 34.3 %; Mean Corpuscular HGB Conc 31.2 g/dL (30-55); Mean Corpuscular Volume 77.1 fl (85-98); Mean Platelet Volume 10.4 fL (7.4-10.4); Monocytes # 0.6 10^3/uL (0.2-0.9); Monocytes % 19.6 %; Neutrophils # 1.26 10^3/uL (1.8-7.7); Neutrophils % 40.3 %; Nucleated Red Blood Cells % 0 %; Platelet Count 245 10^3/cmm (157-399); Red Cell Distribution Width 19.7 % (12.1-15.1); White Blood Count 3.12 10^3/uL (3.29-11.43)
[2024-04-20 13:39] LABS: INR 0.99 (0.8-1.2)
[2024-04-20] MEDS: dilTIAZem 60 mg Tablet 90 MG PO (13:39)
--- NOTE | 2024-04-20 13:55 | PC.PHAR ---
Pt and 2 family members verified medications. They stated they heard- once you get to 2000 mg of combination of medications you have to cut some of them out. Pt has stopped taking some of her medications and can't single out which ones. Pt doesn't seem to know which strength of diltiazem she is on. Newest strength is 120mg daily 03/11/24 90ds. Verified with [facility] pharmacy-pt should be on 120mg. Pt states is no longer taking Pantoprazole 40mg daily last fill 03/13/24 90ds.
[2024-04-20 13:56] LABS: Alanine Aminotransferase 12 U/L (0-33); Albumin Level 3.5 g/dL (3.5-5.2); Alkaline Phosphatase 130 U/L (35-105); Blood Urea Nitrogen 19 mg/dL (8-23); Calcium 9.4 mg/dL (8.5-10.5); Carbon Dioxide 26 mmol/L (22-29); Chloride 101 mmol/L (98-107); Globulin 3.7 g/dL (1.3-4.6); Glomerular Filtration Rate 49.2 mL/min (90-130); Glucose 91 mg/dL (65-115); Osmolality Calculated 294 mOsm/kg (285-295); Sodium 141 mmol/L (136-145); Thyroid Stimulating Hormone 9.78 uIU/mL (0.27-4.20); Total Bilirubin 0.3 mg/dL (0.15-1.2); Total Protein 7.2 g/dL (6.6-8.7)
[2024-04-20 14:04] LABS: Aspartate Amino Transferase 24 U/L (0-32)
== END 2024-04-20 15:16 | disposition home or self-care (01) ==
PROVIDERS: Emergency Provider Emergency Medicine; PCP Family Medicine
DX: I48.20 Chronic atrial fibrillation, unspecified (principal); Z79.01 Long term (current) use of anticoagulants; Z72.0 Tobacco use; C23 Malignant neoplasm of gallbladder; C71.8 Malignant neoplasm of overlapping sites of brain; I10 Essential (primary) hypertension
CPT/HCPCS: 36415; 71045; 80053; 84443; 85025; 85610; 93005; 96374; 99285; J3490

== ENCOUNTER 2024-04-24 15:48 | Outpatient (CLI) | payer MEDICARE, SELFPAY ==
--- NOTE | 2024-04-24 15:49 | CT_ITS ---
WS: [id number] CT chest wo con [id number] HISTORY: LUNG NODULE TECHNIQUE: Axial imaging performed through the thorax. Coronal and sagittal reformats are submitted. All CT scans at [facility] use at least one of these dose optimization techniques: automated exposure control; mA and/or kV adjustment per patient size (includes targeted exams where dose is mat ched to clinical indication); or iterative reconstruction. CONTRAST: Omnipaque 350; 100 mL IV. DLP: 341.43 mGy.cm COMPARISON: 03/27/2024, 08/09/2022, 07/16/2021 Lungs and central airway: Mild pulmonary hyperexpansion. Partially calcified 5 mm nodule superior seg ment LEFT lower lobe. Mild pleural thickening in the RIGHT lower lobe is and at an area of prior pleu ral-parenchymal disease. There are no suspicious masses. There are a few small micronodules at the LE FT lung base. No adverse changes. No increasing size of any nodule. Improved aeration throughout both lungs. Mosaic attenuation has improved in the areas of consolidation on the RIGHT have improved also . Pleura: Mild pleural thickening in the RIGHT lower lobe. Heart and pericardium: Normal size heart with no pericardial effusion. Mediastinum and milli: Small mediastinal and hilar lymph nodes. Majority of these lymph nodes contain calcification. Vessels: LEFT subclavian cardiac pacer. 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 Chest wall and lower neck: No soft tissue masses. Upper abdomen: Small hiatal hernia. Prior cholecystectomy. Marked dilatation of the common bile duct and intrahepatic ducts. Very similar to the study of 03/25/2024 with mild progression prior to that e xam. Fluid-filled structure in the region of the RIGHT renal bed may be a loop of bowel. Limited visu alization of the upper abdomen. Please see recent CT report from 03/27/2024 for further details irina rning the abdomen. Osseous structures: No destructive process. CT/CT chest wo con [id number] IMPRESSION: 1. No pulmonary mass or pneumonia. Since the prior CT of 03/27/2024 there has been overall improvement in aeration. 2. There are few scattered pulmonary nodules which are stable. 3. Mild RIGHT lower lobe pleural thickening with improvement since 03/27/2024. 4. No mediastinal adenopathy. 5. Mild atherosclerosis aorta. Ectatic ascending aorta to 4.3 cm.
== END 2024-04-24 15:49 | disposition home or self-care (01) ==
LOC: RAD 15:48
PROVIDERS: PCP Family Medicine; Visit Provider Family Medicine
DX: R91.8 Other nonspecific abnormal finding of lung field (principal); K44.9 Diaphragmatic hernia without obstruction or gangrene; I77.819 Aortic ectasia, unspecified site; Z95.0 Presence of cardiac pacemaker; Z90.49 Acquired absence of other specified parts of digestive tract
CPT/HCPCS: 71250

== ENCOUNTER 2024-04-24 16:18 | Emergency (ER) | payer MEDICARE, SELFPAY ==
[2024-04-24] VITALS (7 sets, daily range): BP systolic 116–152; BP diastolic 88–112; PULSE 78–130; RESP 16–22; TEMP 36.7; O2SAT 90–96; BMI 25.0
--- NOTE | 2024-04-24 16:21 | ECG_ITS ---
[facility] Test Date: 2024-04-24 Pat Name: Kaity Ferro Department: Room: Gender: Female Right Of Way Agent: : [id number] Requested By: Francis Dyer Order Number: [id number] Reading MD: JAIME GASTON Measurements Intervals [place] Rate: 117 P: 0 RI: 0 QRS: 44 QRSD: 102 T: 213 QT: 324 QTc: 452 Interpretive Statements ATRIAL FIBRILLATION WITH RAPID VENTRICULAR RESPONSE POSSIBLE LEFT VENTRICULAR HYPERTROPHY [VOLTAGE CRITERIA PLUS LAE OR QRS WIDENING] ST DEVIATION AND MODERATE T-WAVE ABNORMALITY, CONSIDER LATERAL ISCHEMIA [-0.1+ mV T-WAVE IN I/aVL/V5/V6] Compared to ECG 04/20/2024 12:42:18 No significant changes Electronically Signed On 04-25-2024 17:27:55 [employer] by JAIME GASTON [email or web address]
--- NOTE | 2024-04-24 16:47 | XRR_ITS ---
PROCEDURE INFORMATION: Exam: XR Chest Exam date and time: 04/24/2024 5:00 PM Age: 68 years old Clinical indication: Cough and dyspnea; Pacer; TECHNIQUE: Imaging protocol: Radiologic exam of the chest. Views: 1 view. COMPARISON: CT chest wo con [id number] 04/24/2024 3:56 PM FINDINGS: Tubes, catheters and devices: Two lead pacemaker device with leads overlying the right atrium and right ventricle. Lungs: Unremarkable. No consolidation. Pleural spaces: Unremarkable. No pleural effusion. No pneumothorax. Heart/Mediastinum: Unremarkable. No cardiomegaly. Bones/joints: There are degenerative changes in the thoracic spine and across the acromioclavicular joints. XR/XR chest 1V portable [id number] IMPRESSION: No evidence for acute cardiopulmonary disease.
--- NOTE | 2024-04-24 16:51 | W.ED.ARRPALP ---
Documented by User: Francis Cortez, 04/25/24 06:06 HPI - Arrhythmia/Palpitations General: Chief Complaint: Arrhythmia/Palpitations Stated Complaint: high heart rate Time Seen by Provider: 04/24/24 16:42 History of Present Illness: 68-year-old female presents emergency room complaint of rapid heart rate. No chest pain has had some shortness of breath with exertion was seen week ago and noted to have A-fib with RVR started on medication including anticoagulants and amiodarone and diltiazem. She states she been taking most of her medications. She denies any chest pain she has noticed increase swelling in the lower extremities. Related Data Home Medications Medication Instructions Recorded Confirmed apixaban 5 mg tablet (Eliquis) 5 mg PO BID 08/01/19 04/20/24 dorzolamide 2 % eye drops 1 drp ophthalmic (eye) TID 04/20/21 04/20/24 diltiazem HCl 120 mg capsule,24 120 mg PO DAILY 01/31/24 04/20/24 hr,extended release (Tiadylt ER) hydralazine 25 mg tablet 25 mg PO TID 01/31/24 04/20/24 cefdinir 300 mg capsule 300 mg PO BID 04/20/24 04/20/24 ferrous gluconate 324 mg (38 mg 324 mg PO DAILY 04/20/24 04/20/24 iron) tablet fluticasone fur. 200 mcg-umeclid 1 inh inhalation DAILY 04/20/24 04/20/24 62.5 mcg-vilant 25 mcg inhalat.powder (Trelegy Ellipta) furosemide 40 mg tablet 40 mg PO DAILY 04/20/24 04/20/24 hydrocodone 7.5 mg-acetaminophen 1 tab PO TID PRN Pain 04/20/24 04/20/24 325 mg tablet latanoprost 0.005 % eye drops 1 drp ophthalmic (eye) QPM 04/20/24 04/20/24 levothyroxine 75 mcg tablet 75 mcg PO QAM 04/20/24 04/20/24 potassium chloride 20 mEq 20 meq PO DAILY 04/20/24 04/20/24 tablet,extended release Previous Rx's Medication Instructions Recorded ondansetron 8 mg disintegrating 8 mg PO Q6H #14 tabs 03/14/24 tablet amiodarone 200 mg tablet (Pacerone) 200 mg PO BID 30 days #60 tabs 04/04/24 Allergies Allergy/AdvReac Type Severity Reaction Status Date / Time orange juice Allergy Intermediate ADR-Vomitin Verified 04/20/24 12:38 g potassium Allergy Intermediate sick in Verified 04/20/24 12:38 the stomach amoxicillin Allergy unk Verified 04/20/24 12:38 buspirone Allergy unk Verified 04/20/24 12:38 hydralazine Allergy coughing Verified 04/20/24 12:38 and nausea Penicillins Allergy shortness Verified 04/20/24 12:38 of breath povidone-iodine Allergy unk Verified 04/20/24 12:38 [From Betadine] soap [From Betadine] Allergy unk Verified 04/20/24 12:38 Rwsjptu-OZA-SmI Reductase Allergy FLu like Verified 04/20/24 12:38 Inhibitor symptoms [Knudbkc-Hhj-Mra Reductase Inhibitor] carvedilol AdvReac Severe cough Verified 04/20/24 12:38 amlodipine AdvReac BLE edema Verified 04/20/24 12:38 valsartan AdvReac unknown Verified 04/20/24 12:38 Review of Systems Const: Denies: fever(s) or chills Card: Denies: chest pain Resp: Denies: dyspnea GI: Denies: abdominal pain : Denies: dysuria, urinary frequency or urinary urgency Musc: Denies: neck pain or back pain Skin/Breast: Denies: rash PFSH ED PFSH: Medical History Chest pain Peripheral neuropathy Glaucoma Herpes genitalis 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 Brother CAD (coronary artery disease) Brother , 2 brothers of heart disease CAD (coronary artery disease) Denies family history of Diabetes Clotting disorder Dementia Hyperlipidemia Psychiatric illness Chronic kidney disease (CKD) Suicide Anesthesia complication Bleeding disorder Family history of premature coronary artery disease Lung disease Cancer Hypertension Stroke Social History Smoking and tobacco/nicotine status: current every day tobacco/nicotine user Alcohol intake: never Substance/Drug Use: never Physical Exam Const: GENERAL APPEARANCE: cooperative and comfortable ORIENTATION/CONSCIOUSNESS: Yes awake, Yes oriented to person, Yes oriented to place and Yes oriented to time GI: AUSCULTATION: Yes normoactive bowel sounds Extremity: COMMON NORMALS: normal to inspection and capillary refill normal GENERAL: Yes edema Neuro: SENSORIUM/ORIENTATION: Yes oriented to person, Yes oriented to place and Yes oriented to time Skin: COMMON NORMALS: no rashes or lesions noted GENERAL SKIN EXAM: no rashes or lesions noted Course Vital Signs: Vital signs: Vital Signs Temperature 98.0 F 04/24/24 16:23 Pulse Rate 84 04/24/24 21:11 Respiratory Rate 19 H 04/24/24 20:00 Blood Pressure 140/97 04/24/24 21:11 Pulse Oximetry 93 04/24/24 21:11 Oxygen Delivery Me thod Nasal Cannula 04/24/24 18:03 Oxygen Flow Rate 3 04/24/24 18:03 MDM - Arrhythmia/Palpitations Medical Decision Making Patient initially seen she is tachycardic. She states she is taking all her medications will give her single dose of IV amiodarone. After which her heart rate did improved. She was given Lasix as well as she does have increased lower extremity edema. Other labs pending. Care signed out to Dr. Angeles at change of shift. See final notes for diagnosis and disposition. Care transitioned over myself at shift change, lab work was reviewed all essentially benign. This was discussed with the patient. Patient says she is right feeling better and ready to go home. Patient be discharged home to follow-up with her PCP. Medical Records I reviewed the patient's medical records. Lab Data I reviewed the patient's lab results. 04/24/24 17:15 04/24/24 17:15 Radiology Impressions Chest X-Ray 04/24/24 16:47 IMPRESSION: No evidence for acute cardiopulmonary disease. Laboratory Results WBC 5.74 10^3/uL (3.29-11.43) 04/24/24 17:15 RBC 5.10 10^6/uL (3.85-5.65) 04/24/24 17:15 Hgb 12.10 g/dL (11.27-16.99) 04/24/24 17:15 Hct 39.8 % (36-47) 04/24/24 17:15 MCV 78.0 fl (85-98) L 04/24/24 17:15 MCH 23.7 pg (27-33) L 04/24/24 17:15 MCHC 30.4 g/dL (30-55) 04/24/24 17:15 RDW 19.0 % (12.1-15.1) H 04/24/24 17:15 Plt Count 340 10^3/cmm (157-399) 04/24/24 17:15 MPV 9.5 fL (7.4-10.4) 04/24/24 17:15 Neut % (Auto) 56.9 % 04/24/24 17:15 Lymph % (Auto) 25.8 % 04/24/24 17:15 Mccormick % (Auto) 13.8 % 04/24/24 17:15 Eos % (Auto) 1.9 % 04/24/24 17:15 Baso % (Auto) 0.9 % 04/24/24 17:15 Neut # (Auto) 3.27 10^3/uL (1.8-7.7) 04/24/24 17:15 Lymph # (Auto) 1.5 10^3/uL (0.8-4.8) 04/24/24 17:15 Mccormick # (Auto) 0.8 10^3/uL (0.2-0.9) 04/24/24 17:15 Eos # (Auto) 0.1 10^3/uL (0.0-0.8) 04/24/24 17:15 Baso # (Auto) 0.1 10^3/uL (0.0-0.1) 04/24/24 17:15 Nucleated RBC % (auto) 0 % 04/24/24 17:15 Nucleated RBCs # 0.0 /100WBC 04/24/24 17:15 Sodium 137 mmol/L (136-145) 04/24/24 17:15 Potassium 4.4 mmol/L (3.5-5.1) 04/24/24 17:15 Chloride 102 mmol/L (98-107) 04/24/24 17:15 Carbon Dioxide 19 mmol/L (22-29) L 04/24/24 17:15 Anion Gap 20.4 (5-19) H 04/24/24 17:15 BUN 18 mg/dL (8-23) 04/24/24 17:15 Creatinine 1.0 mg/dL (0.5-0.9) H 04/24/24 17:15 GFR Calculation 55.0 mL/min (90-130) L 04/24/24 17:15 Glucose 102 mg/dL (65-115) 04/24/24 17:15 Calculated Osmolality 286 mOsm/kg (285-295) 04/24/24 17:15 Calcium 9.4 mg/dL (8.5-10.5) 04/24/24 17:15 Total Bilirubin 0.2 mg/dL (0.15-1.2) 04/24/24 17:15 AST 21 U/L (0-32) 04/24/24 17:15 ALT 11 U/L (0-33) 04/24/24 17:15 Alkaline Phosphatase 126 U/L (35-105) H 04/24/24 17:15 Troponin T Baseline 30 ng/L (0-10) H 04/24/24 17:15 Troponin T 120 Minute 27.00 ng/L (0-10) H 04/24/24 19:56 Delta Troponin T -3.00 ABS# (0-10) L 04/24/24 19:56 Total Protein 7.3 g/dL (6.6-8.7) 04/24/24 17:15 Albumin 3.8 g/dL (3.5-5.2) 04/24/24 17:15 Globulin 3.5 g/dL (1.3-4.6) 04/24/24 17:15 TSH 4.26 uIU/mL (0.27-4.20) H 04/24/24 17:15 Urine Color Yellow (Yellow) 04/24/24 17:55 Urine Appearance Clear (CLEAR) 04/24/24 17:55 Urine pH 7.5 (5-7) 04/24/24 17:55 Ur Specific [place] 1.008 (1.005-1.030) 04/24/24 17:55 Urine Protein Negative (Negative) 04/24/24 17:55 Urine Glucose (UA) Negative (Normal) 04/24/24 17:55 Urine Ketones Negative (Negative) 04/24/24 17:55 Urine Blood Negative (Negative) 04/24/24 17:55 Urine Nitrate Negative (Negative) 04/24/24 17:55 Urine Bilirubin Negative (Negative) 04/24/24 17:55 Urine Urobilinogen 0.2 mg/dL (Negative) 04/24/24 17:55 Ur Leukocyte Esterase Negative (Negative) 04/24/24 17:55 Urine RBC 0-2 /hpf (0-2) 04/24/24 17:55 Urine WBC 0-5 /hpf (0-5) 04/24/24 17:55 Ur Squamous Epith Cells 0-5 /hpf (0-5) 04/24/24 17:55 Amorphous Sediment Not Reportable 04/24/24 17:55 Urine Bacteria None seen /hpf (NONE) 04/24/24 17:55 Hyaline Casts 0-4 /lpf H 04/24/24 17:55 Discharge Plan Discharge Patient Disposition: Home Clinical Impression: Atrial fibrillation with rapid ventricular response Condition: Stable Prescriptions: No Action Eliquis 5 mg tablet 5 mg PO BID dorzolamide 2 % drops 1 drp ophthalmic (eye) TID hydralazine 25 mg tablet 25 mg PO TID diltiazem HCl [Tiadylt ER] 120 mg capsule,extended release 24 hr 120 mg PO DAILY ondansetron 8 mg tablet,disintegrating 8 mg PO Q6H Qty: 14 0RF Rx Instructions: Take 1/2-1 tab every 6 hours as needed for nausea and vomiting amiodarone [Pacerone] 200 mg Tablet 200 mg PO BID 30 Days Qty: 60 0RF furosemide 40 mg tablet 40 mg PO DAILY latanoprost 0.005 % drops 1 drp ophthalmic (eye) QPM levothyroxine 75 mcg tablet 75 mcg PO QAM hydrocodone-acetaminophen 7.5-325 mg tablet 1 tab PO TID PRN (Reason: Pain) cefdinir 300 mg capsule 300 mg PO BID ferrous gluconate 324 mg (38 mg iron) tablet 324 mg PO DAILY potassium chloride 20 mEq tablet extended release 20 meq PO DAILY Trelegy Ellipta 200-62.5-25 mcg blister with device 1 inh INHALATION DAILY Discharge Orders: Discharge ED (Routine); Ordered 04/24/24 Ordered By: Cayetano Angeles Referrals: Mega Martinez MD [Primary Care Provider] - 1 week Patient Instructions: Atrial Fibrillation Activity Restrictions/Additional Instructions: Thank you for choosing [facility] for your healthcare needs today. Please realize that you were seen in the emergency department and that we are providing you with an emergency medical screening exam and this may not be a complete and all exclusive of all testing and/or medical workup we may need to determine your element or severity of your illness. It is very important that you follow-up as instructed with your primary care provider or specialist for the additional evaluation and to discuss your medical treatment plan. You may return to the emergency department should you have concerns or if your condition changes or worsens in any way. Coding Level of Care Code ED Auto Transmission Specialist for Chg Fwd Documented by User: Cayetano Angeles DO 04/25/24 01:26 HPI - Arrhythmia/Palpitations General: Chief Complaint: Arrhythmia/Palpitations Stated Complaint: high heart rate Time Seen by Provider: 04/24/24 16:42 Related Data Home Medications Medication Instructions Recorded Confirmed apixaban 5 mg tablet (Eliquis) 5 mg PO BID 08/01/19 04/20/24 dorzolamide 2 % eye drops 1 drp ophthalmic (eye) TID 04/20/21 04/20/24 diltiazem HCl 120 mg capsule,24 120 mg PO DAILY 01/31/24 04/20/24 hr,extended release (Tiadylt ER) hydralazine 25 mg tablet 25 mg PO TID 01/31/24 04/20/24 cefdinir 300 mg capsule 300 mg PO BID 04/20/24 04/20/24 ferrous gluconate 324 mg (38 mg 324 mg PO DAILY 04/20/24 04/20/24 iron) tablet fluticasone fur. 200 mcg-umeclid 1 inh inhalation DAILY 04/20/24 04/20/24 62.5 mcg-vilant 25 mcg inhalat.powder (Trelegy Ellipta) furosemide 40 mg tablet 40 mg PO DAILY 04/20/24 04/20/24 hydrocodone 7.5 mg-acetaminophen 1 tab PO TID PRN Pain 04/20/24 04/20/24 325 mg tablet latanoprost 0.005 % eye drops 1 drp ophthalmic (eye) QPM 04/20/24 04/20/24 levothyroxine 75 mcg tablet 75 mcg PO QAM 04/20/24 04/20/24 potassium chloride 20 mEq 20 meq PO DAILY 04/20/24 04/20/24 tablet,extended release Previous Rx's Medication Instructions Recorded ondansetron 8 mg disintegrating 8 mg PO Q6H #14 tabs 03/14/24 tablet amiodarone 200 mg tablet (Pacerone) 200 mg PO BID 30 days #60 tabs 04/04/24 Allergies Allergy/AdvReac Type Severity Reaction Status Date / Time orange juice Allergy Intermediate ADR-Vomitin Verified 04/20/24 12:38 g potassium Allergy Intermediate sick in Verified 04/20/24 12:38 the stomach amoxicillin Allergy unk Verified 04/20/24 12:38 buspirone Allergy unk Verified 04/20/24 12:38 hydralazine Allergy coughing Verified 04/20/24 12:38 and nausea Penicillins Allergy shortness Verified 04/20/24 12:38 of breath povidone-iodine Allergy unk Verified 04/20/24 12:38 [From Betadine] soap [From Betadine] Allergy unk Verified 04/20/24 12:38 Slvbwak-ATS-DlC Reductase Allergy FLu like Verified 04/20/24 12:38 Inhibitor symptoms [Ojmjysl-Pko-Oey Reductase Inhibitor] carvedilol AdvReac Severe cough Verified 04/20/24 12:38 amlodipine AdvReac BLE edema Verified 04/20/24 12:38 valsartan AdvReac unknown Verified 04/20/24 12:38 [facility] ED PFSH: Medical History Chest pain Peripheral neuropathy Glaucoma Herpes genitalis 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 Brother CAD (coronary artery disease) Brother , 2 brothers of heart disease CAD (coronary artery disease) Denies family history of Diabetes Clotting disorder Dementia Hyperlipidemia Psychiatric illness Chronic kidney disease (CKD) Suicide Anesthesia complication Bleeding disorder Family history of premature coronary artery disease Lung disease Cancer Hypertension Stroke Social History Smoking and tobacco/nicotine status: current every day tobacco/nicotine user Alcohol intake: never Substance/Drug Use: never Physical Exam Const: COMMON NORMALS: no acute distress, average body habitus, patient oriented x3, no limitations, healthy appearing, alert and well nourished HENMT: COMMON NORMALS: normocephalic, atraumatic, hearing grossly normal bilaterally, external ears normal, Normal external nose present and moist oral mucous membranes HEAD & SCALP: normocephalic and atraumatic NOSE: Normal external nose present EXTERNAL EAR: Yes external ears normal Neck/C-Spine: COMMON NORMALS: no JVD Chest: COMMONS NORMALS: normal inspection of the chest and normal palpation of entire chest wall Resp: COMMON NORMALS: normal respiratory effort, No retractions, No use of accessory muscles and clear to auscultation bilaterally AUSCULTATION: clear to auscultation bilaterally Cardio: COMMON NORMALS: no JVD, regular rate, regular rhythm, S1 normal heart sound present, S2 normal heart sound present, No gallops present (Cardio), No clicks present (Cardio), No murmurs present (Cardio) and No rub (Cardio) RATE: regular rate RHYTHM: regular rhythm HEART SOUNDS: S1 normal heart sound present and S2 normal heart sound present GI: COMMON NORMALS: Normal to inspection, nondistended, normoactive bowel sounds present, Soft to palpation, non-tender, No hepatosplenomegaly present and no masses PALPATION: Yes Soft to palpation and Yes No hepatosplenomegaly present Neuro: COMMON NORMALS: patient oriented x3 SENSORIUM/ORIENTATION: Yes alert Course Vital Signs: Vital signs: Vital Signs Temperature 98.0 F 04/24/24 16:23 Pulse Rate 84 04/24/24 21:11 Respiratory Rate 19 H 04/24/24 20:00 Blood Pressure 140/97 04/24/24 21:11 Pulse Oximetry 93 04/24/24 21:11 Oxygen Delivery Me thod Nasal Cannula 04/24/24 18:03 Oxygen Flow Rate 3 04/24/24 18:03 MDM - Arrhythmia/Palpitations Medical Decision Making Care transitioned over myself at shift change, lab work was reviewed all essentially benign. This was discussed with the patient. Patient says she is right feeling better and ready to go home. Patient be discharged home to follow-up with her PCP. Lab Data 04/24/24 17:15 04/24/24 17:15 Radiology Impressions Chest X-Ray 04/24/24 16:47 IMPRESSION: No evidence for acute cardiopulmonary disease. Laboratory Results WBC 5.74 10^3/uL (3.29-11.43) 04/24/24 17:15 RBC 5.10 10^6/uL (3.85-5.65) 04/24/24 17:15 Hgb 12.10 g/dL (11.27-16.99) 04/24/24 17:15 Hct 39.8 % (36-47) 04/24/24 17:15 MCV 78.0 fl (85-98) L 04/24/24 17:15 MCH 23.7 pg (27-33) L 04/24/24 17:15 MCHC 30.4 g/dL (30-55) 04/24/24 17:15 RDW 19.0 % (12.1-15.1) H 04/24/24 17:15 Plt Count 340 10^3/cmm (157-399) 04/24/24 17:15 MPV 9.5 fL (7.4-10.4) 04/24/24 17:15 Neut % (Auto) 56.9 % 04/24/24 17:15 Lymph % (Auto) 25.8 % 04/24/24 17:15 Mccormick % (Auto) 13.8 % 04/24/24 17:15 Eos % (Auto) 1.9 % 04/24/24 17:15 Baso % (Auto) 0.9 % 04/24/24 17:15 Neut # (Auto) 3.27 10^3/uL (1.8-7.7) 04/24/24 17:15 Lymph # (Auto) 1.5 10^3/uL (0.8-4.8) 04/24/24 17:15 Mccormick # (Auto) 0.8 10^3/uL (0.2-0.9) 04/24/24 17:15 Eos # (Auto) 0.1 10^3/uL (0.0-0.8) 04/24/24 17:15 Baso # (Auto) 0.1 10^3/uL (0.0-0.1) 04/24/24 17:15 Nucleated RBC % (auto) 0 % 04/24/24 17:15 Nucleated RBCs # 0.0 /100WBC 04/24/24 17:15 Sodium 137 mmol/L (136-145) 04/24/24 17:15 Potassium 4.4 mmol/L (3.5-5.1) 04/24/24 17:15 Chloride 102 mmol/L (98-107) 04/24/24 17:15 Carbon Dioxide 19 mmol/L (22-29) L 04/24/24 17:15 Anion Gap 20.4 (5-19) H 04/24/24 17:15 BUN 18 mg/dL (8-23) 04/24/24 17:15 Creatinine 1.0 mg/dL (0.5-0.9) H 04/24/24 17:15 GFR Calculation 55.0 mL/min (90-130) L 04/24/24 17:15 Glucose 102 mg/dL (65-115) 04/24/24 17:15 Calculated Osmolality 286 mOsm/kg (285-295) 04/24/24 17:15 Calcium 9.4 mg/dL (8.5-10.5) 04/24/24 17:15 Total Bilirubin 0.2 mg/dL (0.15-1.2) 04/24/24 17:15 AST 21 U/L (0-32) 04/24/24 17:15 ALT 11 U/L (0-33) 04/24/24 17:15 Alkaline Phosphatase 126 U/L (35-105) H 04/24/24 17:15 Troponin T Baseline 30 ng/L (0-10) H 04/24/24 17:15 Troponin T 120 Minute 27.00 ng/L (0-10) H 04/24/24 19:56 Delta Troponin T -3.00 ABS# (0-10) L 04/24/24 19:56 Total Protein 7.3 g/dL (6.6-8.7) 04/24/24 17:15 Albumin 3.8 g/dL (3.5-5.2) 04/24/24 17:15 Globulin 3.5 g/dL (1.3-4.6) 04/24/24 17:15 TSH 4.26 uIU/mL (0.27-4.20) H 04/24/24 17:15 Urine Color Yellow (Yellow) 04/24/24 17:55 Urine Appearance Clear (CLEAR) 04/24/24 17:55 Urine pH 7.5 (5-7) 04/24/24 17:55 Ur Specific [place] 1.008 (1.005-1.030) 04/24/24 17:55 Urine Protein Negative (Negative) 04/24/24 17:55 Urine Glucose (UA) Negative (Normal) 04/24/24 17:55 Urine Ketones Negative (Negative) 04/24/24 17:55 Urine Blood Negative (Negative) 04/24/24 17:55 Urine Nitrate Negative (Negative) 04/24/24 17:55 Urine Bilirubin Negative (Negative) 04/24/24 17:55 Urine Urobilinogen 0.2 mg/dL (Negative) 04/24/24 17:55 Ur Leukocyte Esterase Negative (Negative) 04/24/24 17:55 Urine RBC 0-2 /hpf (0-2) 04/24/24 17:55 Urine WBC 0-5 /hpf (0-5) 04/24/24 17:55 Ur Squamous Epith Cells 0-5 /hpf (0-5) 04/24/24 17:55 Amorphous Sediment Not Reportable 04/24/24 17:55 Urine Bacteria None seen /hpf (NONE) 04/24/24 17:55 Hyaline Casts 0-4 /lpf H 04/24/24 17:55 All radiology interpretation(s) finalized by discharge Discharge Plan Discharge Patient Disposition: Home Clinical Impression: Atrial fibrillation with rapid ventricular response Condition: Stable Prescriptions: No Action Eliquis 5 mg tablet 5 mg PO BID dorzolamide 2 % drops 1 drp ophthalmic (eye) TID hydralazine 25 mg tablet 25 mg PO TID diltiazem HCl [Tiadylt ER] 120 mg capsule,extended release 24 hr 120 mg PO DAILY ondansetron 8 mg tablet,disintegrating 8 mg PO Q6H Qty: 14 0RF Rx Instructions: Take 1/2-1 tab every 6 hours as needed for nausea and vomiting amiodarone [Pacerone] 200 mg Tablet 200 mg PO BID 30 Days Qty: 60 0RF furosemide 40 mg tablet 40 mg PO DAILY latanoprost 0.005 % drops 1 drp ophthalmic (eye) QPM levothyroxine 75 mcg tablet 75 mcg PO QAM hydrocodone-acetaminophen 7.5-325 mg tablet 1 tab PO TID PRN (Reason: Pain) cefdinir 300 mg capsule 300 mg PO BID ferrous gluconate 324 mg (38 mg iron) tablet 324 mg PO DAILY potassium chloride 20 mEq tablet extended release 20 meq PO DAILY Trelegy Ellipta 200-62.5-25 mcg blister with device 1 inh INHALATION DAILY Discharge Orders: Discharge ED (Routine); Ordered 04/24/24 Ordered By: Cayetano Angeles Referrals: Mega Martinez MD [Primary Care Provider] - 1 week Patient Instructions: Atrial Fibrillation Activity Restrictions/Additional Instructions: Thank you for choosing [facility] for your healthcare needs today. Please realize that you were seen in the emergency department and that we are providing you with an emergency medical screening exam and this may not be a complete and all exclusive of all testing and/or medical workup we may need to determine your element or severity of your illness. It is very important that you follow-up as instructed with your primary care provider or specialist for the additional evaluation and to discuss your medical treatment plan. You may return to the emergency department should you have concerns or if your condition changes or worsens in any way. Coding Level of Care Code ED Auto Transmission Specialist for Jordan Espinoza
[2024-04-24 17:22] LABS: Basophils # 0.1 10^3/uL (0.0-0.1); Basophils % 0.9 %; Eosinophils # 0.1 10^3/uL (0.0-0.8); Eosinophils % 1.9 %; Hematocrit 39.8 % (36-47); Lymphocytes # 1.5 10^3/uL (0.8-4.8); Lymphocytes % 25.8 %; Mean Corpuscular HGB Conc 30.4 g/dL (30-55); Mean Corpuscular Hemoglobin 23.7 pg (27-33); Mean Platelet Volume 9.5 fL (7.4-10.4); Monocytes # 0.8 10^3/uL (0.2-0.9); Monocytes % 13.8 %; Neutrophils # 3.27 10^3/uL (1.8-7.7); Neutrophils % 56.9 %; Nucleated Red Blood Cells % 0 %; Platelet Count 340 10^3/cmm (157-399); White Blood Count 5.74 10^3/uL (3.29-11.43)
[2024-04-24] MEDS: FUROsemide 10 mg/mL SDV 10mL 60 MG IVP (17:24)
[2024-04-24] MEDS: amiodarone 150 MG/100 ML PREMIX 400 MG IV (17:26)
[2024-04-24 17:59] LABS: Troponin(5th) Baseline 30 ng/L (0-10)
[2024-04-24 18:07] LABS: Potassium 4.4 mmol/L (3.5-5.1)
[2024-04-24 18:07] LABS: Bilirubin Urine Negative (Negative); Blood Urine Negative (Negative); Glucose Urine UA Negative (Normal); Ketones Urine Negative (Negative); Leukocyte Esterase Urine Negative (Negative); Nitrate Urine Negative (Negative); Protein Urine Negative (Negative); Specific Gravity, Urine 1.008 (1.005-1.030); Urine Appearance Clear (CLEAR); Urine Color Yellow (Yellow); Urobilinogen Urine 0.2 mg/dL (Negative); pH Urine 7.5 (5-7)
[2024-04-24 18:08] LABS: Alanine Aminotransferase 11 U/L (0-33); Albumin Level 3.8 g/dL (3.5-5.2); Alkaline Phosphatase 126 U/L (35-105); Anion Gap 20.4 (5-19); Aspartate Amino Transferase 21 U/L (0-32); Blood Urea Nitrogen 18 mg/dL (8-23); Calcium 9.4 mg/dL (8.5-10.5); Carbon Dioxide 19 mmol/L (22-29); Chloride 102 mmol/L (98-107); Creatinine Clr Calc Pharmacy 55.3125; Globulin 3.5 g/dL (1.3-4.6); Glucose 102 mg/dL (65-115); Osmolality Calculated 286 mOsm/kg (285-295); Sodium 137 mmol/L (136-145); Thyroid Stimulating Hormone 4.26 uIU/mL (0.27-4.20); Total Bilirubin 0.2 mg/dL (0.15-1.2); Total Protein 7.3 g/dL (6.6-8.7)
[2024-04-24 18:12] LABS: Add Urine Microscopic? YES; Bacteria Urine None Seen /hpf; Hyaline Casts Urine 0-4 /lpf; RBC Urine 0-2 /hpf (0-2); Squamous Epithelial Cell Urine 0-5 /hpf (0-5); WBC Urine 0-5 /hpf (0-5)
--- NOTE | 2024-04-24 19:07 | ECG_ITS ---
[facility]24[facility]24 Pat Name: Kaity Ferro Department: Room: Gender: Female Station Air Traffic Control Specialist: : 1955 Requested By: Francis Dyer Order Number: [id number] Reading MD: JAIME GASTON Measurements Intervals [place] Rate: 96 P: 0 CO: 0 QRS: 49 QRSD: 106 T: -77 QT: 399 QTc: 506 Interpretive Statements ATRIAL FLUTTER/TACHYCARDIA LEFT VENTRICULAR HYPERTROPHY AND ST-T CHANGE [VOLTAGE CRITERIA PLUS ST/T ABNORMALITY] Compared to ECG 04/24/2024 16:25:41 ST (T wave) deviation now present Atrial fibrillation no longer present T-wave abnormality no longer present Possible ischemia no longer present Electronically Signed On 04-25-2024 18:09:52 CLINIC PHYSICIAN DIRECTOR by JAIME GASTON [id number]
== END 2024-04-24 21:10 | disposition home or self-care (01) ==
PROVIDERS: Emergency Provider Family Medicine; PCP Family Medicine
DX: I48.20 Chronic atrial fibrillation, unspecified (principal); Z79.01 Long term (current) use of anticoagulants; Z72.0 Tobacco use; C74.00 Malignant neoplasm of cortex of unspecified adrenal gland; C71.8 Malignant neoplasm of overlapping sites of brain; I10 Essential (primary) hypertension
CPT/HCPCS: 36415; 71045; 80053; 81001; 84443; 84484; 85025; 93005; 96374; 96375; 99285; J0283; J1940

== ENCOUNTER 2024-05-04 15:26 | Emergency (ER) | payer MEDICARE, SELFPAY ==
[2024-05-04 15:46] VITALS: BP 102/63; PULSE 69; RESP 16; TEMP 36.3; O2SAT 88
--- NOTE | 2024-05-04 15:58 | XRR_ITS ---
PROCEDURE INFORMATION: Exam: XR Chest Exam date and time: 05/04/2024 4:25 PM Age: 68 years old Clinical indication: Condition or disease; Other: SOB; Prior surgery; Surgery date: 6+ months; Surgery type: Pacemaker; Patient HX: Weakness; Fatigue; Epigastric pain TECHNIQUE: Imaging protocol: Radiologic exam of the chest. Views: 1 view. COMPARISON: CR (CHEST, ) 04/24/2024 5:00 PM FINDINGS: Tubes, catheters and devices: Stable left chest pacemaker. Lungs: No consolidation. Pleural spaces: No pleural effusion. No pneumothorax. Heart/Mediastinum: Stable cardiomegaly. Bones/joints: No acute findings. XR/XR chest 1V portable [id number] IMPRESSION: No acute findings.
--- NOTE | 2024-05-04 15:58 | ECG_ITS ---
[facility] Test Date: 2024-05-04 Pat Name: Kaity Ferro Department: Room: Gender: Female Supervisor Channel Process: : 1955 Requested By: Cayetano Angeles Order Number: [id number] Kayleigh MD: James Agrawal M.D. Measurements Intervals [place] Rate: 60 P: 0 MA: 0 QRS: -19 QRSD: 201 T: 112 QT: 613 QTc: 613 Interpretive Statements ELECTRONIC VENTRICULAR PACEMAKER PROLONGED QT INTERVAL Compared to ECG 04/24/2024 19:07:02 Prolonged QT interval now present Atrial flutter no longer present Left ventricular hypertrophy no longer present ST (T wave) deviation no longer present Electronically Signed On 05-05-2024 10:26:18 CLAY WASHER by James Agrawal M.D. [email or web address]
[2024-05-04 16:27] VITALS: BP 130/70; PULSE 60; O2SAT 90
--- NOTE | 2024-05-04 16:28 | ED_ITS ---
HPI - General Adult 2 General: Chief complaint: General Medical Stated complaint: abd pain, fatigue, shaking Time Seen by Provider: 05/04/24 15:55 History of Present Illness: Patient presents to the ER with fluctuating blood pressure between 150 and 77 systolic, chills and bodyaches, been going on for about the past 3 days. Patient's family also stated they noticed her abdomen pulsing and quivering. Patient is also currently on Bactrim for UTI that was started 3 days ago but that the family only been giving her to her 1 time a day instead of twice. Related Data Home Medications Medication Instructions Recorded Confirmed apixaban 5 mg tablet (Eliquis) 5 mg PO BID 08/01/19 04/20/24 dorzolamide 2 % eye drops 1 drp ophthalmic (eye) TID 04/20/21 04/20/24 diltiazem HCl 120 mg capsule,24 120 mg PO DAILY 01/31/24 04/20/24 hr,extended release (Tiadylt ER) hydralazine 25 mg tablet 25 mg PO TID 01/31/24 04/20/24 cefdinir 300 mg capsule 300 mg PO BID 04/20/24 04/20/24 ferrous gluconate 324 mg (38 mg 324 mg PO DAILY 04/20/24 04/20/24 iron) tablet fluticasone fur. 200 mcg-umeclid 1 inh inhalation DAILY 04/20/24 04/20/24 62.5 mcg-vilant 25 mcg inhalat.powder (Trelegy Ellipta) furosemide 40 mg tablet 40 mg PO DAILY 04/20/24 04/20/24 hydrocodone 7.5 mg-acetaminophen 1 tab PO TID PRN Pain 04/20/24 04/20/24 325 mg tablet latanoprost 0.005 % eye drops 1 drp ophthalmic (eye) QPM 04/20/24 04/20/24 levothyroxine 75 mcg tablet 75 mcg PO QAM 04/20/24 04/20/24 potassium chloride 20 mEq 20 meq PO DAILY 04/20/24 04/20/24 tablet,extended release Previous Rx's Medication Instructions Recorded ondansetron 8 mg disintegrating 8 mg PO Q6H #14 tabs 03/14/24 tablet Allergies Allergy/AdvReac Type Severity Reaction Status Date / Time orange juice Allergy Intermediate ADR-Vomitin Verified 05/04/24 15:55 g potassium Allergy Intermediate sick in Verified 05/04/24 15:55 the stomach amoxicillin Allergy unk Verified 05/04/24 15:55 buspirone Allergy unk Verified 05/04/24 15:55 hydralazine Allergy coughing Verified 05/04/24 15:55 and nausea Penicillins Allergy shortness Verified 05/04/24 15:55 of breath povidone-iodine Allergy unk Verified 05/04/24 15:55 [From Betadine] soap [From Betadine] Allergy unk Verified 05/04/24 15:55 Qoqxztq-HSV-PxO Reductase Allergy FLu like Verified 05/04/24 15:55 Inhibitor symptoms [Jjckolm-Ctd-Msj Reductase Inhibitor] carvedilol AdvReac Severe cough Verified 05/04/24 15:55 amlodipine AdvReac BLE edema Verified 05/04/24 15:55 valsartan AdvReac unknown Verified 05/04/24 15:55 Review of Systems 2 General: Reports: 10 or more systems reviewed and unremarkable except in HPI and below PFSH ED 2 PFSH: Medical History Chest pain Peripheral neuropathy Glaucoma Herpes genitalis 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 Brother CAD (coronary artery disease) Brother , 2 brothers of heart disease CAD (coronary artery disease) Denies family history of Diabetes Clotting disorder Dementia Hyperlipidemia Psychiatric illness Chronic kidney disease (CKD) Suicide Anesthesia complication Bleeding disorder Family history of premature coronary artery disease Lung disease Cancer Hypertension Stroke Social History Smoking and tobacco/nicotine status: current every day tobacco/nicotine user Alcohol intake: never Substance/Drug Use: never Physical Exam 2 Const: COMMON NORMALS: no acute distress, average body habitus, patient oriented x3, no limitations, healthy appearing, alert and well nourished HENMT: COMMON NORMALS: normocephalic, atraumatic, hearing grossly normal bilaterally, external ears normal and moist oral mucous membranes HEAD & SCALP: normocephalic and atraumatic EXTERNAL EAR: Yes external ears normal Neck/C-Spine: COMMON NORMALS: no JVD Chest: COMMONS NORMALS: normal inspection of the chest and normal palpation of entire chest wall Resp: COMMON NORMALS: normal respiratory effort, No retractions, No use of accessory muscles and clear to auscultation bilaterally AUSCULTATION: clear to auscultation bilaterally Cardio: COMMON NORMALS: no JVD, regular rate, regular rhythm, S1 normal heart sound present, S2 normal heart sound present, No gallops present (Cardio), No clicks present (Cardio), No murmurs present (Cardio) and No rub (Cardio) R ATE: regular rate RHYTHM: regular rhythm HEART SOUNDS: S1 normal heart sound present and S2 normal heart sound present GI: COMMON NORMALS: Normal to inspection, nondistended, normoactive bowel sounds present, Soft to palpation, non-tender, No hepatosplenomegaly present and no masses PALPATION: Yes Soft to palpation and Yes No hepatosplenomegaly present Neuro: COMMON NORMALS: patient oriented x3 SENSORIUM/ORIENTATION: Yes alert Course 2 Vital Signs: Vital signs: Vital Signs Temperature 97.4 F L 05/04/24 15:46 Pulse Rate 60 05/04/24 16:27 Respiratory Rate 16 05/04/24 15:46 Blood Pressure 130/70 05/04/24 16:27 Pulse Oximetry 90 05/04/24 16:27 Oxygen Delivery Me thod Nasal Cannula 05/04/24 16:27 Oxygen Flow Rate 3 05/04/24 16:27 [facility] - General Adult Medical Decision Making Physical exam was performed lab work was obtained, BUN/creatinine is mildly elevated 26 and 1.6, liver enzymes elevated at AST 124, ALT 50, alk phos 262, otherwise unremarkable. These results was discussed with the patient. Patient be discharged home to follow-up with her PCP. Medical Records I reviewed the patient's medical records. Lab Data I reviewed the patient's lab results. 05/04/24 16:35 05/04/24 16:35 Radiology Impressions Chest X-Ray 05/04/24 15:58 IMPRESSION: No acute findings. Laboratory Results WBC 8.19 10^3/uL (3.29-11.43) 05/04/24 16:35 RBC 5.35 10^6/uL (3.85-5.65) 05/04/24 16:35 Hgb 12.60 g/dL (11.27-16.99) 05/04/24 16:35 Hct 41.4 % (36-47) 05/04/24 16:35 MCV 77.4 fl (85-98) L 05/04/24 16:35 MCH 23.6 pg (27-33) L 05/04/24 16:35 MCHC 30.4 g/dL (30-55) 05/04/24 16:35 RDW 19.1 % (12.1-15.1) H 05/04/24 16:35 Plt Count 350 10^3/cmm (157-399) 05/04/24 16:35 MPV 10.3 fL (7.4-10.4) 05/04/24 16:35 Neut % (Auto) 67.1 % 05/04/24 16:35 Lymph % (Auto) 18.6 % 05/04/24 16:35 Mclennan % (Auto) 12.0 % 05/04/24 16:35 Eos % (Auto) 0.9 % 05/04/24 16:35 Baso % (Auto) 1.0 % 05/04/24 16:35 Neut # (Auto) 5.51 10^3/uL (1.8-7.7) 05/04/24 16:35 Lymph # (Auto) 1.5 10^3/uL (0.8-4.8) 05/04/24 16:35 Mclennan # (Auto) 1.0 10^3/uL (0.2-0.9) H 05/04/24 16:35 Eos # (Auto) 0.1 10^3/uL (0.0-0.8) 05/04/24 16:35 Baso # (Auto) 0.1 10^3/uL (0.0-0.1) 05/04/24 16:35 Nucleated RBC % (auto) 0 % 05/04/24 16:35 Nucleated RBCs # 0.0 /100WBC 05/04/24 16:35 Sodium 134 mmol/L (136-145) L 05/04/24 16:35 Potassium 4.0 mmol/L (3.5-5.1) 05/04/24 16:35 Chloride 99 mmol/L (98-107) 05/04/24 16:35 Carbon Dioxide 21 mmol/L (22-29) L 05/04/24 16:35 Anion Gap 18.0 (5-19) 05/04/24 16:35 BUN 26 mg/dL (8-23) H 05/04/24 16:35 Creatinine 1.6 mg/dL (0.5-0.9) H 05/04/24 16:35 GFR Calculation 32.0 mL/min (90-130) L 05/04/24 16:35 Glucose 114 mg/dL (65-115) 05/04/24 16:35 Calculated Osmolality 284 mOsm/kg (285-295) L 05/04/24 16:35 Calcium 10.1 mg/dL (8.5-10.5) 05/04/24 16:35 Magnesium 2.0 mg/dL (1.7-2.3) 05/04/24 16:35 Total Bilirubin 0.3 mg/dL (0.15-1.2) 05/04/24 16:35 AST 124 U/L (0-32) H 05/04/24 16:35 ALT 50 U/L (0-33) H 05/04/24 16:35 Alkaline Phosphatase 262 U/L (35-105) H 05/04/24 16:35 Total Protein 7.3 g/dL (6.6-8.7) 05/04/24 16:35 Albumin 3.9 g/dL (3.5-5.2) 05/04/24 16:35 Globulin 3.4 g/dL (1.3-4.6) 05/04/24 16:35 Urine Color Yellow (Yellow) 05/04/24 18:15 Urine Appearance Clear (CLEAR) 05/04/24 18:15 Urine pH 6.5 (5-7) 05/04/24 18:15 Ur Specific [place] 1.012 (1.005-1.030) 05/04/24 18:15 Urine Protein Negative (Negative) 05/04/24 18:15 Urine Glucose (UA) Negative (Normal) 05/04/24 18:15 Urine Ketones Negative (Negative) 05/04/24 18:15 Urine Blood Negative (Negative) 05/04/24 18:15 Urine Nitrate Negative (Negative) 05/04/24 18:15 Urine Bilirubin Negative (Negative) 05/04/24 18:15 Urine Urobilinogen 1.0 mg/dL (Negative) 05/04/24 18:15 Ur Leukocyte Esterase Negative (Negative) 05/04/24 18:15 Urine RBC 0-2 /hpf (0-2) 05/04/24 18:15 Urine WBC 0-5 /hpf (0-5) 05/04/24 18:15 Ur Squamous Epith Cells 0-5 /hpf (0-5) 05/04/24 18:15 Amorphous Sediment Not Reportable 05/04/24 18:15 Urine Bacteria None seen /hpf (NONE) 05/04/24 18:15 Hyaline Casts 0.40 /lpf 05/04/24 18:15 All radiology interpretation(s) finalized by discharge Discharge Plan Discharge Patient Disposition: Home Clinical Impression: Abdominal pain, acute, epigastric, Blood pressure check Condition: Stable Prescriptions: No Action Eliquis 5 mg tablet 5 mg PO BID dorzolamide 2 % drops 1 drp ophthalmic (eye) TID hydralazine 25 mg tablet 25 mg PO TID diltiazem HCl [Tiadylt ER] 120 mg capsule,extended release 24 hr 120 mg PO DAILY ondansetron 8 mg tablet,disintegrating 8 mg PO Q6H Qty: 14 0RF Rx Instructions: Take 1/2-1 tab every 6 hours as needed for nausea and vomiting furosemide 40 mg tablet 40 mg PO DAILY latanoprost 0.005 % drops 1 drp ophthalmic (eye) QPM levothyroxine 75 mcg tablet 75 mcg PO QAM hydrocodone-acetaminophen 7.5-325 mg tablet 1 tab PO TID PRN (Reason: Pain) cefdinir 300 mg capsule 300 mg PO BID ferrous gluconate 324 mg (38 mg iron) tablet 324 mg PO DAILY potassium chloride 20 mEq tablet extended release 20 meq PO DAILY Trelegy Ellipta 200-62.5-25 mcg blister with device 1 inh INHALATION DAILY Discharge Orders: Discharge ED (Routine); Ordered 05/04/24 Ordered By: Cayetano Angeles Referrals: Mega Martinez MD [Primary Care Provider] - 1 week Patient Instructions: Abdominal Pain (ED) Activity Restrictions/Additional Instructions: Thank you for choosing [facility] for your healthcare needs today. Please realize that you were seen in the emergency department and that we are providing you with an emergency medical screening exam and this may not be a complete and all exclusive of all testing and/or medical workup we may need to determine your element or severity of your illness. It is very important that you follow-up as instructed with your primary care provider or specialist for the additional evaluation and to discuss your medical treatment plan. You may return to the emergency department should you have concerns or if your condition changes or worsens in any way. Coding Level of Care Code ED As400 Consultant for Jordan Espinoza
[2024-05-04 16:41] LABS: Basophils # 0.1 10^3/uL (0.0-0.1); Eosinophils # 0.1 10^3/uL (0.0-0.8); Eosinophils % 0.9 %; Hematocrit 41.4 % (36-47); Lymphocytes # 1.5 10^3/uL (0.8-4.8); Lymphocytes % 18.6 %; Mean Corpuscular HGB Conc 30.4 g/dL (30-55); Mean Corpuscular Hemoglobin 23.6 pg (27-33); Mean Corpuscular Volume 77.4 fl (85-98); Mean Platelet Volume 10.3 fL (7.4-10.4); Neutrophils # 5.51 10^3/uL (1.8-7.7); Neutrophils % 67.1 %; Nucleated Red Blood Cells % 0 %; Platelet Count 350 10^3/cmm (157-399); Red Blood Count 5.35 10^6/uL (3.85-5.65); Red Cell Distribution Width 19.1 % (12.1-15.1); White Blood Count 8.19 10^3/uL (3.29-11.43)
[2024-05-04 17:00] LABS: Alanine Aminotransferase 50 U/L (0-33); Albumin Level 3.9 g/dL (3.5-5.2); Alkaline Phosphatase 262 U/L (35-105); Aspartate Amino Transferase 124 U/L (0-32); Blood Urea Nitrogen 26 mg/dL (8-23); Calcium 10.1 mg/dL (8.5-10.5); Carbon Dioxide 21 mmol/L (22-29); Chloride 99 mmol/L (98-107); Creatinine Clr Calc Pharmacy 34.5703; Globulin 3.4 g/dL (1.3-4.6); Glucose 114 mg/dL (65-115); Osmolality Calculated 284 mOsm/kg (285-295); Sodium 134 mmol/L (136-145); Total Bilirubin 0.3 mg/dL (0.15-1.2); Total Protein 7.3 g/dL (6.6-8.7)
[2024-05-04 18:22] LABS: Bilirubin Urine Negative (Negative); Blood Urine Negative (Negative); Glucose Urine UA Negative (Normal); Ketones Urine Negative (Negative); Leukocyte Esterase Urine Negative (Negative); Nitrate Urine Negative (Negative); Protein Urine Negative (Negative); Specific Gravity, Urine 1.012 (1.005-1.030); Urine Appearance Clear (CLEAR); Urine Color Yellow (Yellow); pH Urine 6.5 (5-7)
[2024-05-04 18:27] LABS: Add Urine Microscopic? YES; Bacteria Urine None Seen /hpf; RBC Urine 0-2 /hpf (0-2); Squamous Epithelial Cell Urine 0-5 /hpf (0-5); WBC Urine 0-5 /hpf (0-5)
[2024-05-04 19:21] VITALS: BP 128/78; PULSE 62; O2SAT 94
== END 2024-05-04 19:23 | disposition home or self-care (01) ==
PROVIDERS: Emergency Provider Emergency Medicine; PCP Family Medicine
DX: R10.13 Epigastric pain (principal); Z79.01 Long term (current) use of anticoagulants; Z72.0 Tobacco use; I10 Essential (primary) hypertension; C74.00 Malignant neoplasm of cortex of unspecified adrenal gland
CPT/HCPCS: 36415; 71045; 80053; 81001; 83735; 85025; 93005; 99285

== ENCOUNTER 2024-05-16 12:44 | Outpatient (CLI) | payer MEDICARE, SELFPAY ==
--- NOTE | 2024-05-16 12:47 | USCV_ITS ---
Kaity Ferro Age: 68 Gender: F : 1955 Exam Date: 05/16/2024 13:01 Ordering Phys: Mega Martinez MD Technologist: [place] [facility] [place]: cp BP: 155 / 90 HR: 88 Rhythm: Sinus Technical Quality: Adequate MEASUREMENTS (Male / Female) Normal Values 2D ECHO LV Diastolic Diameter PLAX 3.2 cm 4.2 - 5.9 / 3.9 - 5.3 cm IVS Diastolic Thickness 1.8 cm 0.6 - 1.0 / 0.6 - 0.9 cm IVS Systolic Thickness 2.0 cm LVPW Diastolic Thickness 1.7 cm 0.6 - 1.0 / 0.6 - 0.9 cm LVPW Systolic Thickness 2.0 cm LVOT Diameter 2.1 cm LV Ejection Fraction 2D Teich 72.2 % LV Ejection Fraction MOD 4C 63.2 % LV Ejection Fraction MOD 2C 57.9 % LV Ejection Fraction 2C AL 57.5 % LA Diameter 3.0 cm RA Systolic Volume 4C AL 43.3 ml RA Systolic Volume 4C MOD 41.3 ml Aorta at Sinotubular Diameter 2.8 cm IVC Diameter 1.5 cm M-MODE LA Ao Ratio MM 0.9 AV Cusp Separation MM 1.9 cm DOPPLER AV Peak Velocity 173.0 cm/s LVOT Peak Velocity 133.0 cm/s AV Area Cont Eq vti 3.3 cm squared AV Area Cont Eq pk 2.6 cm squared MV Area PHT 3.9 cm squared Mitral E to A Ratio 1.1 TR Peak Velocity 248.0 cm/s TR Peak Gradient 24.6 mmHg TV Peak E Velocity 99.0 cm/s PV Peak Velocity 107.0 cm/s FINDINGS Left Ventricle Normal left ventricular size, systolic function and wall thickness, with no regional wall motion abnormalities. Left ventricular ejection fraction is estimated at 60 %. Grade II/IV diastolic dysfunction, moderately elevated filling pressures. Right Ventricle The right ventricle is normal in size and function. Right Atrium The right atrium is normal in size. Left Atrium Moderately increased left atrial size. Mitral Valve Moderately thickened mitral valve. Moderate mitral annular calcification. No mitral valve stenosis. Moderate mitral valve regurgitation. Aortic Valve Severe aortic valve calcification. No aortic valve stenosis, mean gradient 4.1 mmHg, DANNI 3.3 cm squared. Trace aortic valve regurgitation. Tricuspid Valve Trace tricuspid valve regurgitation. Pulmonic Valve Structurally normal pulmonic valve without significant stenosis. There is no pulmonic regurgitation. Pericardium Normal pericardium without effusion. Aorta Normal ascending aorta dimension. IVC The inferior vena cava appears normal. CONCLUSIONS Normal left ventricular size, systolic function and wall thickness, with no regional wall motion abnormalities. Left ventricular ejection fraction is estimated at 60 %. Grade II/IV diastolic dysfunction, moderately elevated filling pressures. Moderately increased left atrial size. Moderately thickened mitral valve. Moderate mitral annular calcification. No mitral valve stenosis. Moderate mitral valve regurgitation. Severe aortic valve calcification. No aortic valve stenosis, mean gradient 4.1 mmHg, DANNI 3.3 cm squared. Trace aortic valve regurgitation. There is no pericardial effusion. Right atrial pressure is around 5 mm of mercury. Darrius Bartlett MD (Electronically Signed) Final Date: 21 May 2024 20:53 S
== END 2024-05-16 12:45 | disposition home or self-care (01) ==
LOC: RAD 12:44
PROVIDERS: PCP Family Medicine; Visit Provider Family Medicine
DX: I50.30 Unspecified diastolic (congestive) heart failure (principal); I48.91 Unspecified atrial fibrillation; I51.7 Cardiomegaly; I34.0 Nonrheumatic mitral (valve) insufficiency; I70.0 Atherosclerosis of aorta; I34.81 Nonrheumatic mitral (valve) annulus calcification
CPT/HCPCS: 93306

== ENCOUNTER → 2024-07-31 14:49 | Outpatient (BNVA) | payer MEDICARE, SELFPAY | PROVIDERS: PCP Family Medicine; Visit Provider Nurse Practitioner Family | DX: I48.20 Chronic atrial fibrillation, unspecified (principal); I10 Essential (primary) hypertension; I13.0 Hypertensive heart and chronic kidney disease with heart failure and stage 1 through stage 4 chronic kidney disease, or unspecified chronic kidney disease; F17.200 Nicotine dependence, unspecified, uncomplicated; Z86.16 Personal history of COVID-19 | CPT/HCPCS: 36415; 80048; 99214 ==

== ENCOUNTER → 2024-08-28 10:12 | Outpatient (BNVA) | payer MEDICARE, SELFPAY | PROVIDERS: PCP Family Medicine; Visit Provider Nurse Practitioner Family | DX: R07.9 Chest pain, unspecified (principal); I48.20 Chronic atrial fibrillation, unspecified; I10 Essential (primary) hypertension | CPT/HCPCS: 99214 ==

== ENCOUNTER 2024-08-31 16:17 | Inpatient (IN) | payer MEDICARE, SELFPAY ==
[2024-08-31 16:46] VITALS: BP 113/78; PULSE 113; RESP 20; TEMP 36.7; O2SAT 85; BMI 23.8
--- NOTE | 2024-08-31 16:47 | ECG_ITS ---
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: : 1955 Requested By: Francis Dyer Order Number: [id number] Reading MD: JAIME GASTON Measurements Intervals [place] Rate: 106 P: 0 WV: 0 QRS: 39 QRSD: 118 T: 228 QT: 378 QTc: 504 Interpretive Statements ATRIAL FLUTTER/TACHYCARDIA WITH RAPID VENTRICULAR RESPONSE LEFT VENTRICULAR HYPERTROPHY AND ST-T CHANGE [VOLTAGE CRITERIA PLUS ST/T ABNORMALITY] Compared to ECG 05/04/2024 16:38:15 Left ventricular hypertrophy now present ST (T wave) deviation now present Ventricular-paced complex(es) or rhythm no longer present Prolonged QT interval no longer present Electronically Signed On 09-09-2024 21:38:16 CDT by JAIME GASTON [email or web address]
--- NOTE | 2024-08-31 16:57 | XRR_ITS ---
PROCEDURE INFORMATION: Exam: XR Chest Exam date and time: 08/31/2024 5:36 PM Age: 69 years old Clinical indication: Cough and dyspnea; Additional info: Dyspnea/cough TECHNIQUE: Imaging protocol: Radiologic exam of the chest. Views: 1 view. COMPARISON: CR XR chest 1V portable [id number] 05/04/2024 4:25 PM FINDINGS: Tubes, catheters and devices: Pacemaker. Lungs: No consolidation. Pleural spaces: No pleural effusion. No pneumothorax. Heart/Mediastinum: No cardiomegaly. Bones/joints: No acute findings. XR/XR chest 1V portable [id number] IMPRESSION: No acute findings.
--- NOTE | 2024-08-31 16:57 | W.ED.GENADLT ---
Documented by User: Francis Cortez, 09/01/24 16:27 HPI - General Adult General: Chief complaint: Recheck/Abnormal Lab/Rx Stated complaint: dr Martinez sent for abnormal kidney levels Time Seen by Provider: 08/31/24 16:47 History of Present Illness: 69-year-old female presents to the emergency room complaining of abnormal labs. She had lab work done by her primary care doctor who did contact them told him that her kidney function was abnormal and she did go to the emergency room. Patient has been taking more diuretics lately to get fluid off of her system. She also reports some dysuria. On arrival here she is hypoxic states she usually does not use oxygen at home but is 85% on room air. She denies any productive cough or fever no orthopnea Associated symptoms: Reports dyspnea; Deny chest pain or rash Related Data Home Medications ?Medication ?Instructions ?Recorded ?Confirmed apixaban 5 mg tablet (Eliquis) 5 mg PO BID 08/01/19 09/01/24 dorzolamide 2 % eye drops 1 drp ophthalmic (eye) TID 04/20/21 09/01/24 ferrous gluconate 324 mg (38 mg 324 mg PO DAILY 04/20/24 09/01/24 iron) tablet fluticasone fur. 200 mcg-umeclid 1 inh inhalation DAILY 04/20/24 09/01/24 62.5 mcg-vilant 25 mcg inhalat.powder (Trelegy Ellipta) hydrocodone 7.5 mg-acetaminophen 1 tab PO TID PRN Pain 04/20/24 09/01/24 325 mg tablet latanoprost 0.005 % eye drops 1 drp ophthalmic (eye) QPM 04/20/24 09/01/24 levothyroxine 75 mcg tablet 75 mcg PO QAM 04/20/24 09/01/24 amiodarone 200 mg tablet 200 mg PO DAILY 07/31/24 09/01/24 atorvastatin 40 mg tablet (Lipitor) 40 mg PO DAILY 07/31/24 09/01/24 metoprolol tartrate 25 mg tablet 25 mg PO BID 07/31/24 09/01/24 ondansetron 8 mg disintegrating 8 mg PO Q6H PRN Nausea 07/31/24 09/01/24 tablet potassium chloride 20 mEq 20 meq PO DAILY 07/31/24 09/01/24 tablet,extended release spironolactone 25 mg tablet 25 mg PO DAILY 08/28/24 09/01/24 diltiazem HCl 360 mg capsule,24 360 mg PO DAILY 09/01/24 09/01/24 hr,extended release (Tiadylt ER) furosemide 20 mg tablet 20 mg PO TID 09/01/24 09/01/24 levothyroxine 88 mcg tablet 88 mcg PO DAILY 09/01/24 09/01/24 pantoprazole 40 mg tablet,delayed 40 mg PO DAILY 09/01/24 09/01/24 release spironolactone 25 1 tab PO DAILY 09/01/24 09/01/24 mg-hydrochlorothiazide 25 mg tablet Allergies Allergy/AdvReac Type Severity Reaction Status Date / Time orange juice Allergy Intermediate ADR-Vomitin Verified 08/28/24 10:34 g potassium Allergy Intermediate sick in Verified 08/28/24 10:34 the stomach amoxicillin Allergy unk Verified 08/28/24 10:34 buspirone Allergy unk Verified 08/28/24 10:34 hydralazine Allergy coughing Verified 08/28/24 10:34 and nausea Penicillins Allergy shortness Verified 08/28/24 10:34 of breath povidone-iodine (From Allergy unk Verified 08/28/24 10:34 Betadine) soap (From Betadine) Allergy unk Verified 08/28/24 10:34 Zvuutue-WXJ-RzS Reductase Allergy FLu like Verified 08/28/24 10:34 Inhibitor (Swamiqb-Msl-Qgf symptoms Reductase Inhibitor) carvedilol AdvReac Severe cough Verified 08/28/24 10:34 amlodipine AdvReac BLE edema Verified 08/28/24 10:34 valsartan AdvReac unknown Verified 08/28/24 10:34 Review of Systems Const: Denies: fever(s) or chills Card: Denies: chest pain Resp: Reports: dyspnea GI: Denies: abdominal pain : Reports: dysuria; Denies: urinary frequency or urinary urgency Musc: Denies: neck pain or back pain Skin/Breast: Denies: rash PFSH ED PFSH: Medical History Chest pain Peripheral neuropathy Glaucoma Herpes genitalis 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 Brother CAD (coronary artery disease) Brother , 2 brothers of heart disease CAD (coronary artery disease) Denies family history of Diabetes Clotting disorder Dementia Hyperlipidemia Psychiatric illness Chronic kidney disease (CKD) Suicide Anesthesia complication Bleeding disorder Family history of premature coronary artery disease Lung disease Cancer Hypertension Stroke Social History Smoking and tobacco/nicotine status: current every day tobacco/nicotine user Alcohol intake: never Substance/Drug Use: never Physical Exam Const: GENERAL APPEARANCE: cooperative ORIENTATION/CONSCIOUSNESS: Yes awake, Yes oriented to person, Yes oriented to place and Yes oriented to time HENMT: COMMON NORMALS: normocephalic, atraumatic and hearing grossly normal bilaterally HEAD & SCALP: normocephalic and atraumatic Resp: COMMON NORMALS: normal respiratory effort, No retractions, No use of accessory muscles and clear to auscultation bilaterally AUSCULTATION: clear to auscultation bilaterally and diminished lung sounds Cardio: COMMON NORMALS: regular rate, regular rhythm and No murmurs present (Cardio) RATE: regular rate RHYTHM: regular rhythm GI: COMMON NORMALS: Soft to palpation and No hepatosplenomegaly present AUSCULTATION: Yes normoactive bowel sounds PALPATION: Yes Soft to palpation, No Tenderness to palpation present (GI), No Guarding due to palpation present (GI) and Yes No hepatosplenomegaly present Extremity: COMMON NORMALS: normal to inspection, capillary refill normal, no clubbing, cyanosis or edema, no calf tenderness and no pedal edema Neuro: SENSORIUM/ORIENTATION: Yes oriented to person, Yes oriented to place and Yes oriented to time Skin: COMMON NORMALS: no rashes or lesions noted GENERAL SKIN EXAM: no rashes or lesions noted Course Vital Signs: Vital signs: Vital Signs Temperature 98.4 F 09/01/24 11:59 Pulse Rate 92 09/01/24 15:46 Respiratory Rate 15 09/01/24 15:46 Blood Pressure 133/96 09/01/24 15:46 Pulse Oximetry 91 09/01/24 15:46 Oxygen Delivery Me thod Room Air 09/01/24 15:46 Oxygen Flow Rate 3 09/01/24 12:43 MDM - General Adult Medical Decision Making Care signed out to Dr. Angeles at change of shift. See final notes for diagnosis and disposition. Care transferred over to myself at shift change, patient still requiring 7 L of oxygen per mask and BUN/creatinine is elevated at 56 and 2.8. Once lab work was complete discussed the results with Dr. De Anda who agreed to place patient inpatient for further evaluation treatment. Lab Data 08/31/24 17:37 08/31/24 17:37 Radiology Impressions Chest X-Ray 08/31/24 16:57 IMPRESSION: No acute findings. Laboratory Results WBC 8.47 10^3/uL (3.29-11.43) 08/31/24 17:37 RBC 6.37 10^6/uL (3.85-5.65) H 08/31/24 17:37 Hgb 18.30 g/dL (11.27-16.99) H 08/31/24 17:37 Hct 52.3 % (36-47) H 08/31/24 17:37 MCV 82.1 fl (85-98) L 08/31/24 17:37 MCH 28.7 pg (27-33) 08/31/24 17:37 MCHC 35.0 g/dL (30-55) 08/31/24 17:37 RDW 15.9 % (12.1-15.1) H 08/31/24 17:37 Plt Count 249 10^3/cmm (157-399) 08/31/24 17:37 MPV 10.3 fL (7.4-10.4) 08/31/24 17:37 Neut % (Auto) 60.3 % 08/31/24 17:37 Lymph % (Auto) 26.6 % 08/31/24 17:37 [place] % (Auto) 10.7 % 08/31/24 17:37 Eos % (Auto) 1.2 % 08/31/24 17:37 Baso % (Auto) 0.8 % 08/31/24 17:37 Neut # (Auto) 5.11 10^3/uL (1.8-7.7) 08/31/24 17:37 Lymph # (Auto) 2.3 10^3/uL (0.8-4.8) 08/31/24 17:37 [place] # (Auto) 0.9 10^3/uL (0.2-0.9) 08/31/24 17:37 Eos # (Auto) 0.1 10^3/uL (0.0-0.8) 08/31/24 17:37 Baso # (Auto) 0.1 10^3/uL (0.0-0.1) 08/31/24 17:37 Nucleated RBC % (auto) 0 % 08/31/24 17:37 Nucleated RBCs # 0.0 /100WBC 08/31/24 17:37 Specimen Type Arterial 08/31/24 17:18 Sample Site Radial, left 08/31/24 17:18 ABG pH 7.49 (7.35-7.45) H 08/31/24 17:18 ABG pCO2 36.0 mmHg (35-45) 08/31/24 17:18 ABG pO2 48.6 mmHg (80.0-100.0) L 08/31/24 17:18 ABG HCO3 27.2 mmol/L (22-26) H 08/31/24 17:18 ABG O2 Saturation 87.8 08/31/24 17:18 ABG Base Excess 3.9 mmol/L (-2.0-2.0) H 08/31/24 17:18 [place] Test Pos 08/31/24 17:18 A-a O2 Gradient 7.3 mmHg (5-10) 08/31/24 17:18 Hematocrit 56.4 % (37-47) H 08/31/24 17:18 Hgb O2 Saturation 84.8 % (95-100) L 08/31/24 17:18 Carboxyhemoglobin 3.4 %THgb (0.4-20.1) 08/31/24 17:18 Methemoglobin 0.1 % (0.4-1.5) L 08/31/24 17:18 Total Hemoglobin 18.4 g/dL (12-16) H 08/31/24 17:18 Sodium 134.0 mmol/L (131-143) 08/31/24 17:18 Potassium 2.9 mmol/L (3.5-5.0) L 08/31/24 17:18 Glucose 98.0 mg/dL (70-115) 08/31/24 17:18 Ionized Calcium 1.2 mmol/L (1.1-1.4) 08/31/24 17:18 O2 Delivery Device Nc 08/31/24 17:18 O2 Liters/Min 5.0 % 08/31/24 17:18 Communication Coordinator ID [place] 08/31/24 17:18 Sodium 135 mmol/L (136-145) L 08/31/24 17:37 Potassium 3.3 mmol/L (3.5-5.1) L 08/31/24 17:37 Chloride 91 mmol/L (98-107) L 08/31/24 17:37 Carbon Dioxide 25 mmol/L (22-29) 08/31/24 17:37 Anion Gap 22.3 (5-19) H 08/31/24 17:37 BUN 56 mg/dL (8-23) H 08/31/24 17:37 Creatinine 2.8 mg/dL (0.5-0.9) H 08/31/24 17:37 GFR Calculation 16.7 mL/min (90-130) L 08/31/24 17:37 Glucose 96 mg/dL (65-115) 08/31/24 17:37 Calculated Osmolality 295 mOsm/kg (285-295) 08/31/24 17:37 Calcium 10.4 mg/dL (8.5-10.5) 08/31/24 17:37 Magnesium 2.4 mg/dL (1.7-2.3) H 08/31/24 17:37 Total Bilirubin 0.7 mg/dL (0.15-1.2) 08/31/24 17:37 AST 24 U/L (0-32) 08/31/24 17:37 ALT 15 U/L (0-33) 08/31/24 17:37 Alkaline Phosphatase 112 U/L (35-105) H 08/31/24 17:37 Troponin T 5th Gen ng/L 31 ng/L (0-10) H 08/31/24 17:37 Total Protein 8.2 g/dL (6.6-8.7) 08/31/24 17:37 Albumin 4.6 g/dL (3.5-5.2) 08/31/24 17:37 Globulin 3.6 g/dL (1.3-4.6) 08/31/24 17:37 TSH 1.06 uIU/mL (0.27-4.20) 08/31/24 17:37 Influenza A (PCR) Negative (Negative) 08/31/24 18:32 Influenza Type B (PCR) Negative (Negative) 08/31/24 18:32 RSV (PCR) Negative (Negative) 08/31/24 18:32 SARS-CoV-2 (PCR) Negative (Negative) 08/31/24 18:32 Discharge Plan Discharge Patient Disposition: Admitted As Inpatient Admit Provider: Yolanda De Anda Clinical Impression: DONELL (acute kidney injury), Acute hypoxic respiratory failure Condition: Stable Coding Level of Care Code ED Customer Orders Clerk for Chg Fwd Documented by User: Cayetano Angeles DO 09/01/24 05:21 HPI - General Adult General: Chief complaint: Recheck/Abnormal Lab/Rx Stated complaint: dr Martinez sent for abnormal kidney levels Time Seen by Provider: 08/31/24 16:47 Related Data Home Medications ?Medication ?Instructions ?Recorded ?Confirmed apixaban 5 mg tablet (Eliquis) 5 mg PO BID 08/01/19 09/01/24 dorzolamide 2 % eye drops 1 drp ophthalmic (eye) TID 04/20/21 09/01/24 ferrous gluconate 324 mg (38 mg 324 mg PO DAILY 04/20/24 09/01/24 iron) tablet fluticasone fur. 200 mcg-umeclid 1 inh inhalation DAILY 04/20/24 09/01/24 62.5 mcg-vilant 25 mcg inhalat.powder (Trelegy Ellipta) hydrocodone 7.5 mg-acetaminophen 1 tab PO TID PRN Pain 04/20/24 09/01/24 325 mg tablet latanoprost 0.005 % eye drops 1 drp ophthalmic (eye) QPM 04/20/24 09/01/24 levothyroxine 75 mcg tablet 75 mcg PO QAM 04/20/24 09/01/24 amiodarone 200 mg tablet 200 mg PO DAILY 07/31/24 09/01/24 atorvastatin 40 mg tablet (Lipitor) 40 mg PO DAILY 07/31/24 09/01/24 metoprolol tartrate 25 mg tablet 25 mg PO BID 07/31/24 09/01/24 ondansetron 8 mg disintegrating 8 mg PO Q6H PRN Nausea 07/31/24 09/01/24 tablet potassium chloride 20 mEq 20 meq PO DAILY 07/31/24 09/01/24 tablet,extended release spironolactone 25 mg tablet 25 mg PO DAILY 08/28/24 09/01/24 diltiazem HCl 360 mg capsule,24 360 mg PO DAILY 09/01/24 09/01/24 hr,extended release (Tiadylt ER) furosemide 20 mg tablet 20 mg PO TID 09/01/24 09/01/24 levothyroxine 88 mcg tablet 88 mcg PO DAILY 09/01/24 09/01/24 pantoprazole 40 mg tablet,delayed 40 mg PO DAILY 09/01/24 09/01/24 release spironolactone 25 1 tab PO DAILY 09/01/24 09/01/24 mg-hydrochlorothiazide 25 mg tablet Allergies Allergy/AdvReac Type Severity Reaction Status Date / Time orange juice Allergy Intermediate ADR-Vomitin Verified 08/28/24 10:34 g potassium Allergy Intermediate sick in Verified 08/28/24 10:34 the stomach amoxicillin Allergy unk Verified 08/28/24 10:34 buspirone Allergy unk Verified 08/28/24 10:34 hydralazine Allergy coughing Verified 08/28/24 10:34 and nausea Penicillins Allergy shortness Verified 08/28/24 10:34 of breath povidone-iodine (From Allergy unk Verified 08/28/24 10:34 Betadine) soap (From Betadine) Allergy unk Verified 08/28/24 10:34 Ithqsia-RZR-TtE Reductase Allergy FLu like Verified 08/28/24 10:34 Inhibitor (Puypeqc-Nxh-Wna symptoms Reductase Inhibitor) carvedilol AdvReac Severe cough Verified 08/28/24 10:34 amlodipine AdvReac BLE edema Verified 08/28/24 10:34 valsartan AdvReac unknown Verified 08/28/24 10:34 PFS ED PFSH: Medical History Chest pain Peripheral neuropathy Glaucoma Herpes genitalis 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 Brother CAD (coronary artery disease) Brother , 2 brothers of heart disease CAD (coronary artery disease) Denies family history of Diabetes Clotting disorder Dementia Hyperlipidemia Psychiatric illness Chronic kidney disease (CKD) Suicide Anesthesia complication Bleeding disorder Family history of premature coronary artery disease Lung disease Cancer Hypertension Stroke Social History Smoking and tobacco/nicotine status: current every day tobacco/nicotine user Alcohol intake: never Substance/Drug Use: never Course Vital Signs: Vital signs: Vital Signs Temperature 98.4 F 09/01/24 11:59 Pulse Rate 92 09/01/24 15:46 Respiratory Rate 15 09/01/24 15:46 Blood Pressure 133/96 09/01/24 15:46 Pulse Oximetry 91 09/01/24 15:46 Oxygen Delivery Me thod Room Air 09/01/24 15:46 Oxygen Flow Rate 3 09/01/24 12:43 MDM - General Adult Medical Decision Making Care transferred over to myself at shift change, patient still requiring 7 L of oxygen per mask and BUN/creatinine is elevated at 56 and 2.8. Once lab work was complete discussed the results with Dr. De Anda who agreed to place patient inpatient for further evaluation treatment. Lab Data 08/31/24 17:37 08/31/24 17:37 Radiology Impressions Chest X-Ray 08/31/24 16:57 IMPRESSION: No acute findings. Laboratory Results WBC 8.47 10^3/uL (3.29-11.43) 08/31/24 17:37 RBC 6.37 10^6/uL (3.85-5.65) H 08/31/24 17:37 Hgb 18.30 g/dL (11.27-16.99) H 08/31/24 17:37 Hct 52.3 % (36-47) H 08/31/24 17:37 MCV 82.1 fl (85-98) L 08/31/24 17:37 MCH 28.7 pg (27-33) 08/31/24 17:37 MCHC 35.0 g/dL (30-55) 08/31/24 17:37 RDW 15.9 % (12.1-15.1) H 08/31/24 17:37 Plt Count 249 10^3/cmm (157-399) 08/31/24 17:37 MPV 10.3 fL (7.4-10.4) 08/31/24 17:37 Neut % (Auto) 60.3 % 08/31/24 17:37 Lymph % (Auto) 26.6 % 08/31/24 17:37 [place] % (Auto) 10.7 % 08/31/24 17:37 Eos % (Auto) 1.2 % 08/31/24 17:37 Baso % (Auto) 0.8 % 08/31/24 17:37 Neut # (Auto) 5.11 10^3/uL (1.8-7.7) 08/31/24 17:37 Lymph # (Auto) 2.3 10^3/uL (0.8-4.8) 08/31/24 17:37 [place] # (Auto) 0.9 10^3/uL (0.2-0.9) 08/31/24 17:37 Eos # (Auto) 0.1 10^3/uL (0.0-0.8) 08/31/24 17:37 Baso # (Auto) 0.1 10^3/uL (0.0-0.1) 08/31/24 17:37 Nucleated RBC % (auto) 0 % 08/31/24 17:37 Nucleated RBCs # 0.0 /100WBC 08/31/24 17:37 Specimen Type Arterial 08/31/24 17:18 Sample Site Radial, left 08/31/24 17:18 ABG pH 7.49 (7.35-7.45) H 08/31/24 17:18 ABG pCO2 36.0 mmHg (35-45) 08/31/24 17:18 ABG pO2 48.6 mmHg (80.0-100.0) L 08/31/24 17:18 ABG HCO3 27.2 mmol/L (22-26) H 08/31/24 17:18 ABG O2 Saturation 87.8 08/31/24 17:18 ABG Base Excess 3.9 mmol/L (-2.0-2.0) H 08/31/24 17:18 [place] Test Pos 08/31/24 17:18 A-a O2 Gradient 7.3 mmHg (5-10) 08/31/24 17:18 Hematocrit 56.4 % (37-47) H 08/31/24 17:18 Hgb O2 Saturation 84.8 % (95-100) L 08/31/24 17:18 Carboxyhemoglobin 3.4 %THgb (0.4-20.1) 08/31/24 17:18 Methemoglobin 0.1 % (0.4-1.5) L 08/31/24 17:18 Total Hemoglobin 18.4 g/dL (12-16) H 08/31/24 17:18 Sodium 134.0 mmol/L (131-143) 08/31/24 17:18 Potassium 2.9 mmol/L (3.5-5.0) L 08/31/24 17:18 Glucose 98.0 mg/dL (70-115) 08/31/24 17:18 Ionized Calcium 1.2 mmol/L (1.1-1.4) 08/31/24 17:18 O2 Delivery Device Nc 08/31/24 17:18 O2 Liters/Min 5.0 % 08/31/24 17:18 Communication Coordinator ID [place]ci 08/31/24 17:18 Sodium 135 mmol/L (136-145) L 08/31/24 17:37 Potassium 3.3 mmol/L (3.5-5.1) L 08/31/24 17:37 Chloride 91 mmol/L (98-107) L 08/31/24 17:37 Carbon Dioxide 25 mmol/L (22-29) 08/31/24 17:37 Anion Gap 22.3 (5-19) H 08/31/24 17:37 BUN 56 mg/dL (8-23) H 08/31/24 17:37 Creatinine 2.8 mg/dL (0.5-0.9) H 08/31/24 17:37 GFR Calculation 16.7 mL/min (90-130) L 08/31/24 17:37 Glucose 96 mg/dL (65-115) 08/31/24 17:37 Calculated Osmolality 295 mOsm/kg (285-295) 08/31/24 17:37 Calcium 10.4 mg/dL (8.5-10.5) 08/31/24 17:37 Magnesium 2.4 mg/dL (1.7-2.3) H 08/31/24 17:37 Total Bilirubin 0.7 mg/dL (0.15-1.2) 08/31/24 17:37 AST 24 U/L (0-32) 08/31/24 17:37 ALT 15 U/L (0-33) 08/31/24 17:37 Alkaline Phosphatase 112 U/L (35-105) H 08/31/24 17:37 Troponin T 5th Gen ng/L 31 ng/L (0-10) H 08/31/24 17:37 Total Protein 8.2 g/dL (6.6-8.7) 08/31/24 17:37 Albumin 4.6 g/dL (3.5-5.2) 08/31/24 17:37 Globulin 3.6 g/dL (1.3-4.6) 08/31/24 17:37 TSH 1.06 uIU/mL (0.27-4.20) 08/31/24 17:37 Influenza A (PCR) Negative (Negative) 08/31/24 18:32 Influenza Type B (PCR) Negative (Negative) 08/31/24 18:32 RSV (PCR) Negative (Negative) 08/31/24 18:32 SARS-CoV-2 (PCR) Negative (Negative) 08/31/24 18:32 All radiology interpretation(s) finalized by discharge Discharge Plan Discharge Patient Disposition: Admitted As Inpatient Admit Provider: Yolanda De Anda Clinical Impression: DONELL (acute kidney injury), Acute hypoxic respiratory failure Condition: Stable Coding Level of Care Code ED Customer Orders Clerk for Jordan Espinoza
[2024-08-31 17:29] LABS: ABG PH Result 7.49 (7.35-7.45); Alveolar-Arterial Oxygen Gradi 7.3 mmHg (5-10); Arterial Blood Gas Hematocrit 56.4 % (37-47); Base Excess ABG 3.9 mmol/L (-2.0-2.0); Blood Gas Allen Test Pos; Blood Gas Operator Identificat WALCI; Blood Gas Sample Site Radial, left; Blood Gas Sample Type Arterial; Carboxyhemoglobin 3.4 %THgb (0.4-20.1); HCO3 ABG 27.2 mmol/L (22-26); HGB O2 Sat 84.8 % (95-100); Ionized Calcium Level - ABG 1.2 mmol/L (1.1-1.4); Methemoglobin 0.1 % (0.4-1.5); Oxygen Device NC; Oxygen Saturation ABG 87.8; PO2 ABG 48.6 mmHg (80.0-100.0); Potassium Level - ABG 2.9 mmol/L (3.5-5.0); Total Hemoglobin 18.4 g/dL (12-16)
[2024-08-31 17:44] LABS: Basophils # 0.1 10^3/uL (0.0-0.1); Basophils % 0.8 %; Eosinophils # 0.1 10^3/uL (0.0-0.8); Eosinophils % 1.2 %; Hematocrit 52.3 % (36-47); Lymphocytes # 2.3 10^3/uL (0.8-4.8); Lymphocytes % 26.6 %; Mean Corpuscular Hemoglobin 28.7 pg (27-33); Mean Corpuscular Volume 82.1 fl (85-98); Mean Platelet Volume 10.3 fL (7.4-10.4); Monocytes # 0.9 10^3/uL (0.2-0.9); Monocytes % 10.7 %; Neutrophils # 5.11 10^3/uL (1.8-7.7); Neutrophils % 60.3 %; Nucleated Red Blood Cells % 0 %; Platelet Count 249 10^3/cmm (157-399); Red Blood Count 6.37 10^6/uL (3.85-5.65); Red Cell Distribution Width 15.9 % (12.1-15.1); White Blood Count 8.47 10^3/uL (3.29-11.43)
[2024-08-31 18:00] VITALS: BP 137/104; PULSE 96; O2SAT 91
[2024-08-31 18:03] LABS: Alanine Aminotransferase 15 U/L (0-33); Albumin Level 4.6 g/dL (3.5-5.2); Alkaline Phosphatase 112 U/L (35-105); Aspartate Amino Transferase 24 U/L (0-32); Blood Urea Nitrogen 56 mg/dL (8-23); Calcium 10.4 mg/dL (8.5-10.5); Carbon Dioxide 25 mmol/L (22-29); Chloride 91 mmol/L (98-107); Creatinine Clr Calc Pharmacy 19.0478; Globulin 3.6 g/dL (1.3-4.6); Glomerular Filtration Rate 16.7 mL/min (90-130); Glucose 96 mg/dL (65-115); Osmolality Calculated 295 mOsm/kg (285-295); Sodium 135 mmol/L (136-145); Total Bilirubin 0.7 mg/dL (0.15-1.2); Total Protein 8.2 g/dL (6.6-8.7)
[2024-08-31 18:04] LABS: Anion Gap 22.3 (5-19); Potassium 3.3 mmol/L (3.5-5.1)
[2024-08-31 18:14] VITALS: PULSE 101; RESP 20; O2SAT 95
[2024-08-31] MEDS: ipratropium-albuterol 3 mL Neb INHALATION (18:18)
[2024-08-31 18:21] LABS: Magnesium 2.4 mg/dL (1.7-2.3)
[2024-08-31] MEDS: methylPREDNISolone sod succ 125 mg/2 mL INJ IVP (18:24)
[2024-08-31 19:20] LABS: Influenza A NEGATIVE (Negative); Influenza B NEGATIVE (Negative); Respiratory Syncytial Virus Ce NEGATIVE (Negative); SARS-CoV-2 PCR NEGATIVE (Negative)
--- NOTE | 2024-08-31 19:42 | PM.HP ---
Providers/Chief Complaint Admitting Physician: Yolanda De Anda MD Primary Care Provider: Mega Martinez MD Chief Complaint: dr Martinez sent for abnormal kidney levels History of Present Illness Daughter: Meredith Terrazas cell History is obtained primarily from the daughte, with the patient and the daughter's partner, Navneet (Doc), in the room. 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 Martinez, for an DONELL noted on lab work done on 08/30/2024 to monitor her LFTs. The patient's daughter tells me that the patient referred to [place] by her PCP for placement of hepatobiliary stents, but the procedure was declined by the [facility] because they said that they did not have enough information, but she was informed that her blood counts and kidney levels. The patient's daughter tells me that the patient has uncontrolled HTN, and the daughter asked the PCP in 07/2024 to focus more on BP control and less on the medications for her heart rate. She states that SPironolactone-HCTZ 25-25mg was added to her medication list and one of her BP med of Hydralazine was discontinued. The patient states that she has not felt very well. She feels nauseous, weak to the point that she cannot walk at times. She states that her she trembles. Her daughter is upset and states that this is the case for the last 5 months. the patient complains of headaches, chronic back pain. She endorses dysphagia and odynophagia since 03/2024. She endorses chest pressure in the morning upon exertion after getting up for the last 1 week. She endorses feeling dizziness and blurry vision w/ exertion last week. She sat down and the dizziness resolved. She denies dysuria, hematuria, but endorses increased urinary urgency and frequency. She is 87% on Ra nd when she talks her O2 sat decreases to as low as 83%. She endorses anxiety, but states that she has never been diagnosed with Anxiety. The patient's daughter states that she shakes all the time as if she needs a drink of alcohol, but the patient does not drink. She was seen in cardiology clinic on 08/28/2024, on a 1 month follow-up for complaints of CP. At the time she complained of swelling around the area of her pacemaker. An event monitor was placed during the visit, and a potential stress test was discussed. Per daughter, the SALES AND MARKETING COORDINATOR increased Metop tartrate from 25mg daily to BID. She also takes Amiodarone 200mg daily. In the ED, patient has an O2 sat of 85% and required as much as 7L NC. Her ABG was 7.49/36/48 in addition to acid/base disturbances. She was noted to have an DONELL (Cr of 2.8, baseline of 1.2 in 08/31/2024). EKG showed Aflutter w/ RVR. She was given Solumedrol 125mg IVP x 1 and Ipratropium x 1 and admitted. Review of Systems Narrative: Constitutional: (+) fever(s), (+) chills, (+) body aches, (-) change in appetite, (-) change in weight, (-) fatigue, (+) malaise, (-) night sweats, (-) diaphoresis Eyes: (-) change in vision, (-) blurry vision, (-) diplopia, (-) floaters, ENT: (-) ear pain, (-) ear discharge, (-) aural fullness, (-) tinnitus, (+)nasal discharge, (-)nasal congestion, (-) post nasal drip, (+)dysphagia, (+)odynophagia, (-)hoarseness, Card: (+) Chest pain, (-) palpitations, (-) pedal edema, (-) orthopnea, (-) lightheadedness, (-) syncope, (-) pre-syncope, (-) leg pain with exertion Resp: (-)dyspnea, (-)dyspnea on exertion, (-) cough, (-) wheezing, (-) hemoptysis GI: (+) abdominal pain - chronic since she was 22yo, (+) chronic nausea, (+) chronic intermittent vomiting for the last one year, (-) hematemesis, (-) diarrhea, (+) constipation, (-) hematochezia, (-) melena : (-) flank pain, (-) dysuria, (-) hematuria, (-) urinary urgency, (-) urinary frequency, (-)oliguria, (-) difficulty voiding MSK: (-) myalgias, (+) arthralgias Skin/Breast: (-) rash, (-) sores, (-) new lesions, (-) breast tenderness, (-) breast pain, or (-) nipple discharge Neuro: (-) headaches, (+) dizziness, (-) generalized weakness, (-) weakness in the extremities, (-) numbness in extremities, (-) tingling, (-) frequent falls, (-) Slurred speech present, (-) seizure-like activity, (-) involuntary movements, (-) restless legs Psych: (+) anxiety, (-) depression, (-) paranoia, (-) visual hallucinations, (-) auditory hallucinations, (+)hx of tactile hallucinations seen by Behavioral Health in the past, but she no longer has tactile halucinations, (-) suicidal ideation, (-) homicidal ideation Endo: (-) polyuria, (-) polydipsia, (-) polyphagia, (+)cold intolerance, (+) heat intolerance Heme/Lymph: (+) easy bruising, (+) easy bleeding, (-) petechiae, (-) purpura, (-) enlarged lymph nodes, (-) tender lymph nodes Allergy/Immunlogy: (-) food intolerance, (-) hives/urticaria, (-) itchy/watery eyes, (-) tongue/throat swelling, (-) facial swelling, Medications/Allergies Home Medications ?Medication ?Instructions ?Recorded ?Confirmed ?Last Taken ?Type apixaban 5 mg tablet (Eliquis) 5 mg PO BID 08/01/19 08/28/24 04/19/24 History dorzolamide 2 % eye drops 1 drp ophthalmic (eye) TID 04/20/21 08/28/24 03/14/24 History hydralazine 25 mg tablet 25 mg PO TID 01/31/24 08/28/24 03/14/24 History ferrous gluconate 324 mg (38 mg 324 mg PO DAILY 04/20/24 08/28/24 Unknown History iron) tablet fluticasone fur. 200 mcg-umeclid 1 inh inhalation DAILY 04/20/24 08/28/24 Unknown History 62.5 mcg-vilant 25 mcg inhalat.powder (Trelegy Ellipta) hydrocodone 7.5 mg-acetaminophen 1 tab PO TID PRN Pain 04/20/24 08/28/24 Unknown History 325 mg tablet latanoprost 0.005 % eye drops 1 drp ophthalmic (eye) QPM 04/20/24 08/28/24 Unknown History levothyroxine 75 mcg tablet 75 mcg PO QAM 04/20/24 08/28/24 Unknown History amiodarone 200 mg tablet 200 mg PO DAILY 07/31/24 08/28/24 Unknown History atorvastatin 40 mg tablet (Lipitor) 40 mg PO DAILY 07/31/24 08/28/24 Unknown History diltiazem HCl 120 mg capsule,24 360 mg PO DAILY 07/31/24 08/28/24 Unknown History hr,extended release (Tiadylt ER) furosemide 40 mg tablet 20 mg PO DAILY PRN 07/31/24 08/28/24 Unknown History metoprolol tartrate 25 mg tablet 25 mg PO BID 07/31/24 08/28/24 Unknown History ondansetron 8 mg disintegrating 8 mg PO Q6H PRN 07/31/24 08/28/24 Unknown History tablet potassium chloride 20 mEq 20 meq PO DAILY 07/31/24 08/28/24 Unknown History tablet,extended release spironolactone 25 mg tablet 25 mg PO DAILY 08/28/24 08/28/24 Unknown History Allergies Allergy/AdvReac Type Severity Reaction Status Date / Time orange juice Allergy Intermediate ADR-Vomitin Verified 08/28/24 10:34 g potassium Allergy Intermediate sick in Verified 08/28/24 10:34 the stomach amoxicillin Allergy unk Verified 08/28/24 10:34 buspirone Allergy unk Verified 08/28/24 10:34 hydralazine Allergy coughing Verified 08/28/24 10:34 and nausea Penicillins Allergy shortness Verified 08/28/24 10:34 of breath povidone-iodine (From Allergy unk Verified 08/28/24 10:34 Betadine) soap (From Betadine) Allergy unk Verified 08/28/24 10:34 Aloflna-OTM-ShU Reductase Allergy FLu like Verified 08/28/24 10:34 Inhibitor (Vtfkpxk-Soh-Vmc symptoms Reductase Inhibitor) carvedilol AdvReac Severe cough Verified 08/28/24 10:34 amlodipine AdvReac BLE edema Verified 08/28/24 10:34 valsartan AdvReac unknown Verified 08/28/24 10:34 PFSH Acute PFSH: Medical History Chest pain Peripheral neuropathy Glaucoma Herpes genitalis 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 Brother CAD (coronary artery disease) Brother , 2 brothers of heart disease CAD (coronary artery disease) Denies family history of Diabetes Clotting disorder Dementia Hyperlipidemia Psychiatric illness Chronic kidney disease (CKD) Suicide Anesthesia complication Bleeding disorder Family history of premature coronary artery disease Lung disease Cancer Hypertension Stroke Social History Smoking and tobacco/nicotine status: current every day tobacco/nicotine user Alcohol intake: never Substance/Drug Use: never Vitals/I&O/Wt Last Vital Signs Temp 98.1 F 08/31/24 16:46 Pulse 101 H 08/31/24 18:14 Resp 20 H 08/31/24 18:14 BP 137/104 08/31/24 18:00 Pulse Ox 95 08/31/24 18:14 O2 Del Method Oxymask 08/31/24 18:14 O2 Flow Rate 7 08/31/24 18:14 Weight last 48 hrs Weight 68.946 kg Physical Exam Narrative: Constitutional: GENERAL APPEARANCE: cooperative, comfortable and appears older than stated age; not combative, disheveled, frail appearing HENT: HEAD & SCALP: normocephalic and atraumatic; NOSE: external nose not normal EXTERNAL EAR: no external ears normal MOUTH: Normal oral and palatal mucosa present THROAT: posterior oropharynx normal Eye: PERRL, EOMI, normal conjunctiva b/l Neck: normal visual inspection, trachea midline, No anterior neck swelling, No tracheal deviation, No tracheostomy present, no submandibular swelling, Thyroid normal , cervical ROM normal Lymph: no cervical, supraclavicular LAD Resp: no use of accessory muscles, CTAB, no w/r/r Cardio: tachycardia, but in sinus rhythm. non radiating systolic murmurs appreciated. No rubs gallops or clicks. 2+ radial and DP pulses. GI: normoactive bowel sounds, non-tender, non-distended, no guarding, no rigidity, no rebound tenderness, no hepatosplenomegaly. : (-) Ramirez in place draining urine, Back/Pelvis: Deferred Extremity: No clubbing. No edema. B/l Erythematous lower extremity Neuro: AO to person, place and time. CN normal except as noted. Normal gait present. 5/5 motor strength present throughout. Normal motor muscle tone present throughout. No tremor noted. No motor abnormalities present. No motor fasciculations present Psych: APPEARANCE: Yes grossly normal ATTITUDE: Yes calm and Yes engaged ACTIVITY/MOTOR BEHAVIOR: Yes appropriate eye contact SPEECH: Yes normal speech MOOD & AFFECT: Yes euthymic mood THOUGHT PROCESS: Normal thought process present THOUGHT CONTENT: Yes Normal thought content present ATTENTION/CONCENTRATION: Yes attention grossly intact MEMORY/COGNITION: Yes memory grossly intact Data 08/31/24 17:37 08/31/24 17:37 A&P Assessment and plan (1) Acute hypoxic respiratory failure: (2) DONELL (acute kidney injury): (3) Acute exacerbation of chronic obstructive pulmonary disease (COPD): Plan Kaity Ferro is a 69 year old female w/ multiple medical problems including a 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 Martinez, for an DONELL noted on lab work done on 08/30/2024 to monitor her LFTs. In the ED, patient has an O2 sat of 85% and required as much as 7L NC. Her ABG was 7.49/36/48 in addition to acid/base disturbances. She was noted to have an DONELL (Cr of 2.8, baseline of 1.2 in 08/31/2024). EKG showed Aflutter w/ RVR. She was given Solumedrol 125mg IVP x 1 and Ipratropium x 1 and admitted. #DONELL: Give d5 1/2 NS +40mEQ of potassium at 200cc/hr then continue IVF based on repeat labs. - It is unclear whether the patient has true CHF such that she is taking the diuretics. . #Respiratory Alkalosis & Metabolic Alkalosis -Will start w/ IVF. F/u urine studies. #Acute Hypoxic resp. failure: - Patient was on RA at the time that she was seen, but although she was not visibly dyspneic when she spoke, her O2 sats went as low as 83 whenever she spoke. When she was quiet, her O2 sat never went higher than 89%. #Acute COPD exacerbation: She likely has this given her hx of smoking. - Duoneb, Solumedrol ordered. Doxycycline ordered given prolonged QTc. #Tobacco use d/o: Patient was 43 when she started smoking. She smoked approx 1ppd for 20yrs and cut back about 5 years ago. She currently smokes 6-7 cigs daily. - Nicotine patch prescribed. Counselled against smoking. #Acute on chronic Aflutter w/ RVR: On, Furosemide 60mg daily, Eliquis 5mg BID, Potassium 20mg daily, Diltiazem 360mg daily, amiodarone 200 mg daily at home - Will give Diltiazem 20mg IVP x 1 and re-evaluate. #Prolonged QTc - Will monitor #Permanent Pacemaker: due to SSS? #Stable Angina: based on her symptoms. She is supposed to get a stress test. Start daily aspirin. #HTN: Held Spironolactone-HCTZ. #HLD: On Atorvastatin 40mg at home. 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 - Per daughter, she is supposed to get a sleep study on 09/20/2023 by her pain management physician, Dr. Fletcher. #Hypothyroidism: On Levothyroxine 88mcg at home. 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 Continue PPI and Zofran #Chronic dysphagia/odynophagia - Defer management to Day Hospitalist. #chronic back pain - On Glenvil 7.5-325mg BID at home. Ordered Percocet q4h prn while in house #Iron deficiency anemia: On Ferrous Gluconate 324mg daily - held DVT ppx: Renally dosed lovenox ordered. PDMP PDMP Reviewed: Not Reviewed Attestations Medical Necessity Statement*: The patient needs to be hospitalized for greater than 2 midnights for her DONELL, acute hypoxic respiratory failure, COPD exacerbation, atrial flutter with rapid ventricular response. Time Spent in Patient Care: >90mins spent on chart review, interview of the patient and her daughter, patient physical exam, lab/imaging review, plan formulation and coordination of care, as well as communication of the plan with the patient and her daughter. Time was also spent on counseling the patient to stop smoking. Coding Level of Care Code Acute Code for Chg Fwd Other Coding Information Focused coding review requested Diagnoses Acute hypoxic respiratory failure J96.01 DONELL (acute kidney injury) N17.9 Acute exacerbation of chronic obstructive pulmonary disease (COPD) J44.1
[2024-08-31 19:53] VITALS: BP 152/103; PULSE 98; RESP 20; O2SAT 92
[2024-08-31 21:16] LABS: Add Urine Microscopic? NO
[2024-08-31 21:22] LABS: Bilirubin Urine Neg (Negative); Blood Urine Neg (Negative); Charge for UA Resulting for Rev; Glucose Urine UA Norm (Normal); Ketones Urine Negative (Negative); Leukocyte Esterase Urine Negative (Negative); Nitrate Urine Negative (Negative); Protein Urine Neg (Negative); Urine Appearance Clear (CLEAR); Urine Color Yellow (Yellow); Urobilinogen Urine Norm (Negative); pH Urine 5 (5-7)
[2024-08-31 21:38] LABS: Urea Nitrogen,Urine Random 572 mg/dL; Urine Random Chloride 15 mmol/L; Urine Random Sodium 14 mmol/L
[2024-08-31 21:47] VITALS: PULSE 113; RESP 19; O2SAT 90
[2024-08-31] MEDS: pantoprazole DR 40 mg Tablet PO (22:33)
[2024-08-31] MEDS: dextrose 5%-ns 0.45% + KCl 40 1,000 ML 200 MEQ IV (23:08)
--- NOTE | 2024-08-31 23:13 | ECG_ITS ---
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
[2024-09-01] VITALS (18 sets, daily range): BP systolic 101–152; BP diastolic 76–112; PULSE 66–110; RESP 15–25; TEMP 36.5–36.9; O2SAT 91–98
[2024-09-01 02:54] LABS: Troponin T (5th) Once 31 ng/L (0-10)
[2024-09-01] MEDS: enoxaparin 30 mg/0.3 mL Syringe SUBCUT (03:04)
[2024-09-01 03:05] LABS: Thyroid Stimulating Hormone 1.06 uIU/mL (0.27-4.20)
[2024-09-01] MEDS: dilTIAZem 5 mg/mL SDV 5 mL 20 MG IVP (03:05)
[2024-09-01] MEDS: doxycycline 100 MG in sodium chloride 0.9% (plus) 100 ML IV ×2 (03:07→15:24)
[2024-09-01] MEDS: ipratropium 0.5 mg/2.5 mL Neb INHALATION ×4 (03:18→20:18)
[2024-09-01] MEDS: levalbuterol 0.63 mg/3 mL Neb INHALATION ×4 (03:18→20:18)
[2024-09-01] MEDS: pantoprazole DR 40 mg Tablet PO (05:28)
[2024-09-01] MEDS: oxyCODONE-APAP 5-325 mg Tablet 1 TAB PO (06:30)
[2024-09-01 06:59] LABS: INR 1.32 (0.8-1.2)
[2024-09-01] MEDS: sennosides 8.6 mg Tablet 17.2 MG PO (08:09)
[2024-09-01] MEDS: aspirin 81 mg Chew Tablet PO (08:11)
[2024-09-01] MEDS: dilTIAZem ER (24HR) 120 mg Capsule 360 MG PO (08:11)
[2024-09-01] MEDS: nicotine 7 mg Patch 1 PATCH TRANSDERMA (08:12)
--- NOTE | 2024-09-01 11:36 | PC.CHAP ---
Pastoral Care Encounter/Spiritual Assessment Type of Contact [] Declined potato grader visit [] Patient/Family/Request visit [] Outpatient visit [] Follow-up visit [] Physician referral [] Code/Alert [x] Routine visit [] Staff referral [] Actively dying [] Patient sleeping [] Family support [] [] Out of room [] Palliative care [] [] Receiving care in room [] Pre-surgical visit [] Trauma [] Long length of stay [] ICU visit [] Other: Relational/Emotional Strength [x] Patient feels connected with others/family/visitors/staff [] Distress [] Loneliness/isolation [] Abandonment Spirituality of Patient [x] Person of Tana [] Attends Confucianist of their Tana [x] Believes in Prayer [] Reads Bible or Mandaeism materials [] There are Spiritual issues to be addressed Assistant Drafter Interventions [x] Prayer [x] Active listening [x] Non-anxious presence [] Spiritual/emotional support [] Crisis/trauma care [] Spiritual counseling [] Bereavement support [] Provided bereavement packet [] Provided Bible/devotional materials [] Provided toy/stuffed animal, coloring book to patient or family member [] Provided Communion [] Anointing/Eunice [] Salvation [] Completed spiritual assessment [] Other: Impact on Illness or Injury [] Angry [] Fearful [] Anxious [] Often cries [] Exhaustion [] Unable to work [] Unable to attend religious [] Unable to walk/stand [] Unable to read [] Unable to drive [] Unable to eat/drink [] Unable to sleep [] Unable to be with family [] Patient intubated [] Other: Summary Prayer Time spent with patient 15 min
--- NOTE | 2024-09-01 15:32 | P.PN_ITS ---
Subjective 2 Subjective: She is sitting up in bed this morning. States that she is feeling better. Her nausea has improved. She is wanting something to eat. Oxygen saturation has improved. She is currently on 3 L satting at 94%. She was 85% in the ER and requiring 7 L of oxygen at times. Vitals/I&O/Wt Last Vital Signs Temp 98.4 F 09/01/24 11:59 Pulse 95 09/01/24 12:43 Resp 18 09/01/24 12:31 BP 131/96 09/01/24 11:59 Pulse Ox 94 09/01/24 12:43 O2 Del Method Nasal Cannula 09/01/24 12:43 O2 Flow Rate 3 09/01/24 12:43 09/01/24 09/01/24 09/01/24 06:59 14:59 22:59 Intake Total 1100 / 1100 580 / 580 Output Total 0 / 0 450 / 450 Balance 1100 / 1100 130 / 130 Weight last 48 hrs Weight 150 lb 11.2 oz Weight 148 lb Weight 152 lb Physical Exam 2 Narrative: General: Cooperative patient in no apparent distress. Well developed. HEENT: Normocephalic, Atraumatic. External ears normal. Nasal passages patent without drainage. MMM. Heart: RRR. Resp: Diminished lung sounds throughout, scattered wheezing. Abd: Soft, non-tender. Non-distended. Extremities: No edema. Skin: No rash or lesions on exposed areas. Data 08/31/24 17:37 08/31/24 17:37 A&P Assessment and plan (1) Acute hypoxic respiratory failure: (2) DONELL (acute kidney injury): (3) Acute exacerbation of chronic obstructive pulmonary disease (COPD): Plan Kaity Ferro is a 69 year old female w/ multiple medical problems including a 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 Martinez, for an DONELL noted on lab work done on 08/30/2024 to monitor her LFTs. In the ED, patient has an O2 sat of 85% and required as much as 7L NC. Her ABG was 7.49/36/48 in addition to acid/base disturbances. She was noted to have an DONELL (Cr of 2.8, baseline of 1.2 in 08/31/2024). EKG showed Aflutter w/ RVR. She was given Solumedrol 125mg IVP x 1 and Ipratropium x 1 and admitted. #DONELL: Give d5 1/2 NS +40mEQ of potassium at 200cc/hr then continue IVF based on repeat labs. - It is unclear whether the patient has true CHF such that she is taking the diuretics. . #Respiratory Alkalosis & Metabolic Alkalosis -Will start w/ IVF. F/u urine studies. #Acute Hypoxic resp. failure: - Patient was on RA at the time that she was seen, but although she was not visibly dyspneic when she spoke, her O2 sats went as low as 83 whenever she spoke. When she was quiet, her O2 sat never went higher than 89%. #Acute COPD exacerbation: She likely has this given her hx of smoking. - Duoneb, Solumedrol ordered. Doxycycline ordered given prolonged QTc. #Tobacco use d/o: Patient was 43 when she started smoking. She smoked approx 1ppd for 20yrs and cut back about 5 years ago. She currently smokes 6-7 cigs daily. - Nicotine patch prescribed. Counselled against smoking. #Acute on chronic Aflutter w/ RVR: On, Furosemide 60mg daily, Eliquis 5mg BID, Potassium 20mg daily, Diltiazem 360mg daily, amiodarone 200 mg daily at home - Will give Diltiazem 20mg IVP x 1 and re-evaluate. #Prolonged QTc - Will monitor #Permanent Pacemaker: due to SSS? #Stable Angina: based on her symptoms. She is supposed to get a stress test. Start daily aspirin. #HTN: Held Spironolactone-HCTZ. #HLD: On Atorvastatin 40mg at home. 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 #ASHLEY - Noted on retired [employer] Device Scientist Dr. Garcia's note. - Per daughter, she is supposed to get a sleep study on 09/20/2023 by her pain management physician, Dr. Fletcher. #Hypothyroidism: On Levothyroxine 88mcg at home. 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 Continue PPI and Zofran #Chronic dysphagia/odynophagia - Defer management to Day Hospitalist. #chronic back pain - On [place] 7.5-325mg BID at home. Ordered Percocet q4h prn while in house #Iron deficiency anemia: On Ferrous Gluconate 324mg daily - held 09/01/2024 Symptoms have improved today. She is no longer nauseated and wanting something to eat. I will advance her to a GI soft diet. Will recheck a.m. labs. Her previous history does not seem to indicate that she had severe kidney disease. BUN was 56 and creatinine was 2.8 on this admission. Will start gentle IV hydration. She is increasing her oral intake well. Recheck labs in the a.m. Will continue to monitor I's and O's. Slowly add back home medications as indicated. DVT ppx: Renally dosed lovenox ordered. PDMP PDMP Reviewed: Not Reviewed Attestations 2 Medical Necessity Statement*: The patient needs to be hospitalized for greater than 2 midnights for her DONELL, acute hypoxic respiratory failure, COPD exacerbation, atrial flutter with rapid ventricular response. Coding Level of Care Code Acute Code for Chg Fwd Moderate MDM includes number and complexity of problems actively addressed during encounter, amount and/or complexity of data reviewed/ordered and described risk of complication, morbidity or mortality of management as documented Diagnoses Acute hypoxic respiratory failure J96.01 DONELL (acute kidney injury) N17.9 Acute exacerbation of chronic obstructive pulmonary disease (COPD) J44.1
[2024-09-02] VITALS (12 sets, daily range): BP systolic 131–157; BP diastolic 80–100; PULSE 70–99; RESP 16–22; TEMP 36.3–36.8; O2SAT 90–92
[2024-09-02] MEDS: oxyCODONE-APAP 5-325 mg Tablet 1 TAB PO ×2 (00:29→21:20)
[2024-09-02] MEDS: ipratropium 0.5 mg/2.5 mL Neb INHALATION ×4 (02:29→20:58)
[2024-09-02] MEDS: levalbuterol 0.63 mg/3 mL Neb INHALATION ×4 (02:29→20:59)
[2024-09-02] MEDS: enoxaparin 30 mg/0.3 mL Syringe SUBCUT (03:09)
[2024-09-02] MEDS: doxycycline 100 MG in sodium chloride 0.9% (plus) 100 ML IV (03:11)
[2024-09-02 03:53] LABS: Basophils % 0.1 %; Eosinophils # 0.1 10^3/uL (0.0-0.8); Eosinophils % 0.4 %; Hematocrit 49.8 % (36-47); Lymphocytes # 1.3 10^3/uL (0.8-4.8); Lymphocytes % 8.1 %; Mean Corpuscular HGB Conc 34.3 g/dL (30-55); Mean Corpuscular Volume 81.6 fl (85-98); Mean Platelet Volume 10.5 fL (7.4-10.4); Neutrophils # 13.44 10^3/uL (1.8-7.7); Nucleated Red Blood Cells % 0 %; Platelet Count 224 10^3/cmm (157-399); Red Cell Distribution Width 15.6 % (12.1-15.1); White Blood Count 15.82 10^3/uL (3.29-11.43)
[2024-09-02 04:17] LABS: Alanine Aminotransferase 13 U/L (0-33); Albumin Level 4.3 g/dL (3.5-5.2); Alkaline Phosphatase 95 U/L (35-105); Anion Gap 18.5 (5-19); Aspartate Amino Transferase 21 U/L (0-32); Blood Urea Nitrogen 48 mg/dL (8-23); Calcium 10.7 mg/dL (8.5-10.5); Carbon Dioxide 23 mmol/L (22-29); Chloride 92 mmol/L (98-107); Creatinine Clr Calc Pharmacy 26.5694; Globulin 3.3 g/dL (1.3-4.6); Glomerular Filtration Rate 24.6 mL/min (90-130); Glucose 117 mg/dL (65-115); Magnesium 2.1 mg/dL (1.7-2.3); Osmolality Calculated 284 mOsm/kg (285-295); Phosphorus 3.1 mg/dL (2.5-4.5); Potassium 3.5 mmol/L (3.5-5.1); Sodium 130 mmol/L (136-145); Total Bilirubin 0.5 mg/dL (0.15-1.2); Total Protein 7.6 g/dL (6.6-8.7)
[2024-09-02] MEDS: pantoprazole DR 40 mg Tablet PO (05:42)
--- NOTE | 2024-09-02 06:20 | P.PN_ITS ---
Subjective 2 Subjective: Had some trouble with the medication through the IV last night. She is wanting to switch to oral antibiotics if possible. Has been eating and drinking well. Denies any other problems. Vitals/I&O/Wt Last Vital Signs Temp 97.4 F L 09/02/24 03:21 Pulse 99 09/02/24 03:21 Resp 18 09/02/24 03:21 BP 157/93 09/02/24 03:21 Pulse Ox 91 09/02/24 02:29 O2 Del Method Room Air 09/02/24 02:29 O2 Flow Rate 3 09/01/24 20:18 09/01/24 09/01/24 09/02/24 14:59 22:59 06:59 Intake Total 580 / 580 580 / 1160 Output Total 450 / 450 Balance 130 / 130 580 / 710 Weight last 48 hrs Weight 153 lb 14.4 oz Weight 150 lb 11.2 oz Weight 148 lb Weight 152 lb Physical Exam 2 Narrative: General: Cooperative patient in no apparent distress. Well developed. HEENT: Normocephalic, Atraumatic. External ears normal. Nasal passages patent without drainage. MMM. Heart: RRR. Resp: Diminished lung sounds throughout, scattered wheezing. Abd: Soft, non-tender. Non-distended. Extremities: No edema. Skin: No rash or lesions on exposed areas. 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 Martinez, for an DONELL noted on lab work done on 08/30/2024 to monitor her LFTs. In the ED, patient has an O2 sat of 85% and required as much as 7L NC. Her ABG was 7.49/36/48 in addition to acid/base disturbances. She was noted to have an DONELL (Cr of 2.8, baseline of 1.2 in 08/31/2024). EKG showed Aflutter w/ RVR. She was given Solumedrol 125mg IVP x 1 and Ipratropium x 1 and admitted. #DONELL: Give d5 1/2 NS +40mEQ of potassium at 200cc/hr then continue IVF based on repeat labs. - It is unclear whether the patient has true CHF such that she is taking the diuretics. . #Respiratory Alkalosis & Metabolic Alkalosis -Will start w/ IVF. F/u urine studies. #Acute Hypoxic resp. failure: - Patient was on RA at the time that she was seen, but although she was not visibly dyspneic when she spoke, her O2 sats went as low as 83 whenever she spoke. When she was quiet, her O2 sat never went higher than 89%. #Acute COPD exacerbation: She likely has this given her hx of smoking. - Duoneb, Solumedrol ordered. Doxycycline ordered given prolonged QTc. #Tobacco use d/o: Patient was 43 when she started smoking. She smoked approx 1ppd for 20yrs and cut back about 5 years ago. She currently smokes 6-7 cigs daily. - Nicotine patch prescribed. Counselled against smoking. #Acute on chronic Aflutter w/ RVR: On, Furosemide 60mg daily, Eliquis 5mg BID, Potassium 20mg daily, Diltiazem 360mg daily, amiodarone 200 mg daily at home - Will give Diltiazem 20mg IVP x 1 and re-evaluate. #Prolonged QTc - Will monitor #Permanent Pacemaker: due to SSS? #Stable Angina: based on her symptoms. She is supposed to get a stress test. Start daily aspirin. #HTN: Held Spironolactone-HCTZ. #HLD: On Atorvastatin 40mg at home. Resume home meds #PAD: noted on retired [employer] Dr. Garcia's notes - On Eliquis and Atorvastatin at home. #ASHLEY - Noted on retired [employer] Dr. Garcia's note. - Per daughter, she is supposed to get a sleep study on 09/20/2023 by her pain management physician, Dr. Fletcher. #Hypothyroidism: On Levothyroxine 88mcg at home. 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 Continue PPI and Zofran #chronic back pain - On Reydon 7.5-325mg BID at home. Ordered Percocet q4h prn while in house #Iron deficiency anemia: On Ferrous Gluconate 324mg daily - held 09/02/2024 plan White count slightly elevated today, likely as a result of steroids. Sodium a little bit low today at 130. IV fluids were halted. She is eating and drinking well. Renal function improved. Creatinine down to 2.0 from 2.8. Sugars have been well-controlled. Symptomatically she feels he is improving. She is breathing a little better, though a little bit wheezy. She has refused a breathing treatment saying that they give her headache. Her blood pressure and heart rate have improved. She is satting in the 90 percentile range on room air. Will continue with current medications and if she remains stable overnight with improved symptoms she can likely discharge home on oral antibiotics, steroids and close follow-up with her PCP. Code Status: Full IVF: None DVT PPx: Lovenox GI PPx: Protonix ABx: Doxycycline Diet: Soft mechanical Discharge plan: Home when appropriate. PDMP PDMP Reviewed: Not Reviewed Attestations 2 Medical Necessity Statement*: The patient needs to be hospitalized for greater than 2 midnights for her DONELL, acute hypoxic respiratory failure, COPD exacerbation, atrial flutter with rapid ventricular response. Coding Level of Care Code Acute Code for Chg Fwd Moderate MDM includes number and complexity of problems actively addressed during encounter, amount and/or complexity of data reviewed/ordered and described risk of complication, morbidity or mortality of management as documented Diagnoses Acute hypoxic respiratory failure J96.01 DONELL (acute kidney injury) N17.9 Acute exacerbation of chronic obstructive pulmonary disease (COPD) J44.1
[2024-09-02] MEDS: sennosides 8.6 mg Tablet 17.2 MG PO (08:59)
[2024-09-02] MEDS: levothyroxine 88 mcg Tablet PO (09:00)
[2024-09-02] MEDS: nicotine 7 mg Patch 1 PATCH TRANSDERMA (09:00)
[2024-09-02] MEDS: aspirin 81 mg Chew Tablet PO (09:00)
[2024-09-02] MEDS: dilTIAZem ER (24HR) 120 mg Capsule 360 MG PO (09:00)
[2024-09-02] MEDS: doxycycline 100 mg Tablet PO (17:56)
[2024-09-03] VITALS (16 sets, daily range): BP systolic 118–160; BP diastolic 85–96; PULSE 63–90; RESP 15–28; TEMP 36.3–37.1; O2SAT 86–94
[2024-09-03] MEDS: ipratropium 0.5 mg/2.5 mL Neb INHALATION ×4 (02:14→20:39)
[2024-09-03] MEDS: levalbuterol 0.63 mg/3 mL Neb INHALATION ×4 (02:14→20:39)
[2024-09-03 03:22] LABS: Basophils % 0.1 %; Eosinophils # 0.1 10^3/uL (0.0-0.8); Hematocrit 50.1 % (36-47); Lymphocytes # 2.2 10^3/uL (0.8-4.8); Lymphocytes % 23.5 %; Mean Corpuscular HGB Conc 33.7 g/dL (30-55); Mean Corpuscular Hemoglobin 28.4 pg (27-33); Mean Corpuscular Volume 84.2 fl (85-98); Mean Platelet Volume 10.5 fL (7.4-10.4); Monocytes # 0.7 10^3/uL (0.2-0.9); Monocytes % 7.4 %; Neutrophils # 6.37 10^3/uL (1.8-7.7); Neutrophils % 67.8 %; Nucleated Red Blood Cells % 0 %; Platelet Count 179 10^3/cmm (157-399); Red Blood Count 5.95 10^6/uL (3.85-5.65); Red Cell Distribution Width 15.9 % (12.1-15.1)
[2024-09-03 03:48] LABS: Alanine Aminotransferase 13 U/L (0-33); Albumin Level 4.1 g/dL (3.5-5.2); Alkaline Phosphatase 88 U/L (35-105); Anion Gap 17.7 (5-19); Aspartate Amino Transferase 20 U/L (0-32); Blood Urea Nitrogen 36 mg/dL (8-23); Calcium 10.1 mg/dL (8.5-10.5); Carbon Dioxide 24 mmol/L (22-29); Chloride 92 mmol/L (98-107); Creatinine Clr Calc Pharmacy 35.7458; Globulin 3.1 g/dL (1.3-4.6); Glomerular Filtration Rate 34.3 mL/min (90-130); Glucose 88 mg/dL (65-115); Osmolality Calculated 278 mOsm/kg (285-295); Phosphorus 2.7 mg/dL (2.5-4.5); Potassium 3.7 mmol/L (3.5-5.1); Sodium 130 mmol/L (136-145); Total Bilirubin 0.5 mg/dL (0.15-1.2); Total Protein 7.2 g/dL (6.6-8.7)
[2024-09-03] MEDS: enoxaparin 30 mg/0.3 mL Syringe SUBCUT (04:24)
[2024-09-03] MEDS: pantoprazole DR 40 mg Tablet PO (05:15)
[2024-09-03] MEDS: levothyroxine 88 mcg Tablet PO (08:01)
[2024-09-03] MEDS: acetaminophen 325 mg Tablet 650 MG PO (08:01)
[2024-09-03] MEDS: sennosides 8.6 mg Tablet 17.2 MG PO (08:01)
[2024-09-03] MEDS: nicotine 7 mg Patch 1 PATCH TRANSDERMA (08:01)
[2024-09-03] MEDS: doxycycline 100 mg Tablet PO ×2 (08:02→17:50)
[2024-09-03] MEDS: aspirin 81 mg Chew Tablet PO (08:02)
[2024-09-03] MEDS: dilTIAZem ER (24HR) 120 mg Capsule 360 MG PO (08:02)
--- NOTE | 2024-09-03 11:28 | PC.SOCIAL ---
IMM Update pg 2 of IMM Updated and reviewed w/ patient. Copy provided and copy dated, initialed and placed in chart.
--- NOTE | 2024-09-03 11:55 | P.PN_ITS ---
Subjective 2 Subjective: Reports doing better today. Says she is still very weak having difficulties getting around. She has not seen physical therapy yet. She wants to get up and walk around someone. Denies any pain. Has been able to go without oxygen for some time without significant decrease in her sats or with increased breathing. Medications: Reviewed: Yes Vitals/I&O/Wt Last Vital Signs Temp 97.6 F 09/03/24 08:00 Pulse 86 09/03/24 09:28 Resp 18 09/03/24 08:00 BP 160/92 09/03/24 08:00 Pulse Ox 91 09/03/24 08:00 O2 Del Method Room Air 09/03/24 08:00 O2 Flow Rate 3 09/01/24 20:18 09/02/24 09/03/24 09/03/24 22:59 06:59 14:59 Intake Total 500 / 1340 Output Total 600 / 600 500 / 500 Balance 500 / 1340 -600 / 740 -500 / -500 Weight last 48 hrs Weight 154 lb 4.8 oz Weight 154 lb 4.8 oz Weight 153 lb 14.4 oz Physical Exam 2 Narrative: General: Cooperative patient in no apparent distress. Well developed. HEENT: Normocephalic, Atraumatic. External ears normal. Nasal passages patent without drainage. MMM. Heart: RRR. Resp: Diminished lung sounds throughout, scattered wheezing. Abd: Soft, non-tender. Non-distended. Extremities: No edema. Skin: No rash or lesions on exposed areas. 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 Martinez, for an DONELL noted on lab work done on 08/30/2024 to monitor her LFTs. In the ED, patient has an O2 sat of 85% and required as much as 7L NC. Her ABG was 7.49/36/48 in addition to acid/base disturbances. She was noted to have an DONELL (Cr of 2.8, baseline of 1.2 in 08/31/2024). EKG showed Aflutter w/ RVR. She was given Solumedrol 125mg IVP x 1 and Ipratropium x 1 and admitted. 09/03/2024 plan. Continue close inpatient monitoring. She still has fairly diffuse wheezing. Blood pressure has been a little bit elevated. O2 saturation improved into the 90 percentile on room air now. Was unable to tolerate breathing treatments, was causing her a headache. These were discontinued. Renal function has improved significantly. BUN today was 36, creatinine now at 1.5. Her creatinine on admission was 2.8. She is eating and drinking better. Will keep her on IV fluids through today to see if her kidneys will return to normal function, and then we can likely discontinue. Continue on oral doxycycline. Will continue to hold on steroids for now. WBC count is normal. May continue to have nicotine patch as needed. Heart rate has improved significantly. I have transitioned her back to her home medications. Her blood pressure has been a little bit high. Will restart her diltiazem, and hold on her beta-ganesh while she is having the acute exacerbation. Restart her levothyroxine today. Will continue other home medications for chronic illnesses. Sodium is still a little bit on the lower side. I suspect this will improve as her diet improves. Code Status: Full IVF: None DVT PPx: Lovenox GI PPx: Protonix ABx: Doxycycline Diet: Regular diet Discharge plan: Suspect she can be discharged home tomorrow on oral antibiotics. PDMP PDMP Reviewed: Not Reviewed Attestations 2 Medical Necessity Statement*: The patient needs to be hospitalized for greater than 2 midnights for her DONELL, acute hypoxic respiratory failure, COPD exacerbation, atrial flutter with rapid ventricular response. Coding Level of Care Code Acute Code for Chg Fwd Moderate MDM includes number and complexity of problems actively addressed during encounter, amount and/or complexity of data reviewed/ordered and described risk of complication, morbidity or mortality of management as documented Diagnoses Acute hypoxic respiratory failure J96.01 DONELL (acute kidney injury) N17.9 Acute exacerbation of chronic obstructive pulmonary disease (COPD) J44.1
[2024-09-03] MEDS: oxyCODONE-APAP 5-325 mg Tablet 1 TAB PO (21:25)
[2024-09-04] VITALS (11 sets, daily range): BP systolic 116–155; BP diastolic 74–98; PULSE 63–104; RESP 14–21; TEMP 36.3–36.9; O2SAT 88–96
[2024-09-04] MEDS: levalbuterol 0.63 mg/3 mL Neb INHALATION ×2 (02:15→08:37)
[2024-09-04] MEDS: ipratropium 0.5 mg/2.5 mL Neb INHALATION ×2 (02:15→08:37)
[2024-09-04 02:43] LABS: Basophils % 0.3 %; Eosinophils # 0.2 10^3/uL (0.0-0.8); Eosinophils % 2.7 %; Hematocrit 48.5 % (36-47); Lymphocytes # 2.1 10^3/uL (0.8-4.8); Lymphocytes % 30.3 %; Mean Corpuscular HGB Conc 34.2 g/dL (30-55); Mean Corpuscular Hemoglobin 28.8 pg (27-33); Mean Corpuscular Volume 84.1 fl (85-98); Mean Platelet Volume 9.7 fL (7.4-10.4); Monocytes # 0.7 10^3/uL (0.2-0.9); Monocytes % 9.9 %; Neutrophils # 3.84 10^3/uL (1.8-7.7); Neutrophils % 56.5 %; Nucleated Red Blood Cells % 0 %; Platelet Count 160 10^3/cmm (157-399); Red Blood Count 5.77 10^6/uL (3.85-5.65); Red Cell Distribution Width 15.9 % (12.1-15.1); White Blood Count 6.79 10^3/uL (3.29-11.43)
[2024-09-04 03:02] LABS: Alanine Aminotransferase 11 U/L (0-33); Albumin Level 3.9 g/dL (3.5-5.2); Alkaline Phosphatase 80 U/L (35-105); Anion Gap 14.7 (5-19); Aspartate Amino Transferase 16 U/L (0-32); Blood Urea Nitrogen 26 mg/dL (8-23); Calcium 9.7 mg/dL (8.5-10.5); Carbon Dioxide 24 mmol/L (22-29); Chloride 96 mmol/L (98-107); Creatinine Clr Calc Pharmacy 38.3418; Globulin 2.8 g/dL (1.3-4.6); Glomerular Filtration Rate 37.2 mL/min (90-130); Glucose 91 mg/dL (65-115); Magnesium 1.9 mg/dL (1.7-2.3); Osmolality Calculated 276 mOsm/kg (285-295); Phosphorus 2.5 mg/dL (2.5-4.5); Potassium 3.7 mmol/L (3.5-5.1); Sodium 131 mmol/L (136-145); Total Bilirubin 0.4 mg/dL (0.15-1.2); Total Protein 6.7 g/dL (6.6-8.7)
--- NOTE | 2024-09-04 03:20 | PC.NURSE ---
Notified Dr. Ray López about frequent PVC's. Potassium is 3.7, magnesium is 1.9, phosphorous is 2.5. At this time no new orders received.
[2024-09-04] MEDS: enoxaparin 40 mg/0.4 mL Syringe SUBCUT (04:05)
[2024-09-04] MEDS: pantoprazole DR 40 mg Tablet PO ×2 (05:48→08:07)
[2024-09-04] MEDS: dilTIAZem ER (24HR) 120 mg Capsule 360 MG PO (08:06)
[2024-09-04] MEDS: aspirin 81 mg Chew Tablet PO (08:07)
[2024-09-04] MEDS: nicotine 7 mg Patch 1 PATCH TRANSDERMA (08:07)
[2024-09-04] MEDS: levothyroxine 88 mcg Tablet PO (08:07)
[2024-09-04] MEDS: spironolactone 25 mg Tablet PO (08:07)
[2024-09-04] MEDS: doxycycline 100 mg Tablet PO (08:07)
[2024-09-04] MEDS: hydroCHLOROthiazide 25 mg Tablet PO (08:07)
[2024-09-04] MEDS: sennosides 8.6 mg Tablet 17.2 MG PO (08:07)
[2024-09-04] MEDS: oxyCODONE-APAP 5-325 mg Tablet 1 TAB PO (08:54)
--- NOTE | 2024-09-04 12:45 | P.DS_ITS ---
Discharge Providers Date of Admission: 08/31/24 19:38 Date of Discharge: September 04, 2024 Attending Provider at Admission: Yolanda De Anda MD Attending Provider at Discharge: Sulema Hernandez MD Primary Care Provider: Mega Martinez MD Diagnoses at Discharge Discharge Diagnosis (1) Acute hypoxic respiratory failure: Status: Acute (2) DONELL (acute kidney injury): Status: Acute (3) Acute exacerbation of chronic obstructive pulmonary disease (COPD): Status: Acute Reason for Visit Reason for Visit: dr Martinez sent for abnormal kidney levels Hospital Course Hospital Course Kaity Ferro is a 69 year old female w/ multiple medical problems including a 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 Martinez, for an DONELL noted on lab work done on 08/30/2024 to monitor her LFTs. The patient's daughter tells me that the patient referred to [facility] by her PCP for placement of hepatobiliary stents, but the procedure was declined by the performing hospital because they said that they did not have enough information. She was 87% on RA and when she talks her O2 sat decreases to as low as 83% at admission time. For her acute kidney injury, creatinine was at 2.5 upon admission. Lasix was held and patient received IV fluids. With hydration and holding of diuretics currently creatinine is improved at 1.4. Dose of Lasix has been reduced to 20 mg p.o. daily at the time of discharge. She was additionally diagnosed with acute on chronic COPD exacerbation. Patient is an active smoker. States she smokes 3 to 4 cigarettes/day. She received treatment with DuoNeb, Solu-Medrol, doxycycline. She does not like albuterol inhalation as it gives her a headache. Instead she was using Xopenex during the course of her admission here. She states she has several seasonal allergies and the change in season appears to flare her COPD. She has been ordered a nebulizer for home use with Xopenex inhalation. In addition she will continue Trelegy inhaler use. She is being transitioned to oral steroids at the time of discharge. Home oxygen evaluation was completed and patient qualified for supplemental O2 for home use. She has been extensively counseled not to smoke while on oxygen. Physical Exam Narrative: General: No acute distress, AO x3 HEENT: PERRLA, pupils bilaterally equal and reactive, pallors not present Chest: Normal vesicular breath sounds, no added sounds, equal good air entry bilaterally CVS: S1-S2 regular, no murmurs, no tachycardia, no gallops, no rubs Abdomen: Soft, nontender, no organomegaly, bowel sounds present Neuro: No focal deficits, no facial deformity, AO x3, power 5/5 in all limbs Discharge Data Studies Completed and Pending Completed Studies During Hospitalization Category Date Time Status XR chest 1V portable [id number] Stat Exams 08/31/24 16:57 Completed Radiology Impressions Chest X-Ray 08/31/24 16:57 IMPRESSION: No acute findings. Laboratory Results WBC 6.79 10^3/uL (3.29-11.43) 09/04/24 02:28 RBC 5.77 10^6/uL (3.85-5.65) H 09/04/24 02:28 Hgb 16.60 g/dL (11.27-16.99) 09/04/24 02:28 Hct 48.5 % (36-47) H 09/04/24 02:28 MCV 84.1 fl (85-98) L 09/04/24 02:28 MCH 28.8 pg (27-33) 09/04/24 02:28 MCHC 34.2 g/dL (30-55) 09/04/24 02:28 RDW 15.9 % (12.1-15.1) H 09/04/24 02:28 Plt Count 160 10^3/cmm (157-399) 09/04/24 02:28 MPV 9.7 fL (7.4-10.4) 09/04/24 02:28 Neut % (Auto) 56.5 % 09/04/24 02:28 Lymph % (Auto) 30.3 % 09/04/24 02:28 Vance % (Auto) 9.9 % 09/04/24 02:28 Eos % (Auto) 2.7 % 09/04/24 02:28 Baso % (Auto) 0.3 % 09/04/24 02:28 Neut # (Auto) 3.84 10^3/uL (1.8-7.7) 09/04/24 02:28 Lymph # (Auto) 2.1 10^3/uL (0.8-4.8) 09/04/24 02:28 Vance # (Auto) 0.7 10^3/uL (0.2-0.9) 09/04/24 02:28 Eos # (Auto) 0.2 10^3/uL (0.0-0.8) 09/04/24 02:28 Baso # (Auto) 0.0 10^3/uL (0.0-0.1) 09/04/24 02:28 Nucleated RBC % (auto) 0 % 09/04/24 02: Nucleated RBCs # 0.0 /100WBC 09/04/24 02: PT 17.30 SECONDS (12.1-14.9) H 09/01/24 06:24 INR 1.32 (0.8-1.2) H 09/01/24 06:24 APTT 33.0 SECONDS (23.9-36.7) 09/01/24 06:24 Specimen Type Arterial 08/31/24 17:18 Sample Site Radial, left 08/31/24 17:18 ABG pH 7.49 (7.35-7.45) H 08/31/24 17:18 ABG pCO2 36.0 mmHg (35-45) 08/31/24 17:18 ABG pO2 48.6 mmHg (80.0-100.0) L 08/31/24 17:18 ABG HCO3 27.2 mmol/L (22-26) H 08/31/24 17:18 ABG O2 Saturation 87.8 08/31/24 17:18 ABG Base Excess 3.9 mmol/L (-2.0-2.0) H 08/31/24 17:18 [place] Test Pos 08/31/24 17:18 A-a O2 Gradient 7.3 mmHg (5-10) 08/31/24 17:18 Hematocrit 56.4 % (37-47) H 08/31/24 17:18 Hgb O2 Saturation 84.8 % (95-100) L 08/31/24 17:18 Carboxyhemoglobin 3.4 %THgb (0.4-20.1) 08/31/24 17:18 Methemoglobin 0.1 % (0.4-1.5) L 08/31/24 17:18 Total Hemoglobin 18.4 g/dL (12-16) H 08/31/24 17:18 Sodium 134.0 mmol/L (131-143) 08/31/24 17:18 Potassium 2.9 mmol/L (3.5-5.0) L 08/31/24 17:18 Glucose 98.0 mg/dL (70-115) 08/31/24 17:18 Ionized Calcium 1.2 mmol/L (1.1-1.4) 08/31/24 17:18 O2 Delivery Device Nc 08/31/24 17:18 O2 Liters/Min 5.0 % 08/31/24 17:18 Bow Maker Machine Tender ID [place] 08/31/24 17:18 Sodium 131 mmol/L (136-145) L 09/04/24 02:28 Potassium 3.7 mmol/L (3.5-5.1) 09/04/24 02:28 Chloride 96 mmol/L (98-107) L 09/04/24 02:28 Carbon Dioxide 24 mmol/L (22-29) 09/04/24 02:28 Anion Gap 14.7 (5-19) 09/04/24 02:28 BUN 26 mg/dL (8-23) H 09/04/24 02:28 Creatinine 1.4 mg/dL (0.5-0.9) H 09/04/24 02:28 GFR Calculation 37.2 mL/min (90-130) L 09/04/24 02:28 Glucose 91 mg/dL (65-115) 09/04/24 02:28 Calculated Osmolality 276 mOsm/kg (285-295) L 09/04/24 02:28 Calcium 9.7 mg/dL (8.5-10.5) 09/04/24 02:28 Phosphorus 2.5 mg/dL (2.5-4.5) 09/04/24 02:28 Magnesium 1.9 mg/dL (1.7-2.3) 09/04/24 02:28 Total Bilirubin 0.4 mg/dL (0.15-1.2) 09/04/24 02:28 AST 16 U/L (0-32) 09/04/24 02:28 ALT 11 U/L (0-33) 09/04/24 02:28 Alkaline Phosphatase 80 U/L (35-105) 09/04/24 02: Troponin T 5th Gen ng/L 31 ng/L (0-10) H 08/31/24 17:37 Total Protein 6.7 g/dL (6.6-8.7) 09/04/24 02:28 Albumin 3.9 g/dL (3.5-5.2) 09/04/24 02: Globulin 2.8 g/dL (1.3-4.6) 09/04/24 02: TSH 1.06 uIU/mL (0.27-4.20) 08/31/24 17:37 Urine Color Yellow (Yellow) 08/31/24 21:03 Urine Appearance Clear (CLEAR) 08/31/24 21:03 Urine pH 5 (5-7) 08/31/24 21:03 Ur Specific [place] 1.010 (1.005-1.030) 08/31/24 21:03 Urine Protein Neg (Negative) 08/31/24 21:03 Urine Glucose (UA) Norm (Normal) 08/31/24 21:03 Urine Ketones Negative (Negative) 08/31/24 21:03 Urine Blood Neg (Negative) 08/31/24 21:03 Urine Nitrate Negative (Negative) 08/31/24 21:03 Urine Bilirubin Neg (Negative) 08/31/24 21:03 Urine Urobilinogen Norm mg/dL (Negative) 08/31/24 21:03 Ur Leukocyte Esterase Negative (Negative) 08/31/24 21:03 Amorphous Sediment Not Reportable 08/31/24 21:03 Ur Random Sodium 14 mmol/L 08/31/24 21:03 Ur Random Chloride 15 mmol/L 08/31/24 21:03 Ur Random Urea Nitrogn 572 mg/dL 08/31/24 21:03 Influenza A (PCR) Negative (Negative) 08/31/24 18:32 Influenza Type B (PCR) Negative (Negative) 08/31/24 18:32 RSV (PCR) Negative (Negative) 08/31/24 18:32 SARS-CoV-2 (PCR) Negative (Negative) 08/31/24 18:32 Vitals Last Vital Signs Temp 98.5 F 09/04/24 08:00 Pulse 72 09/04/24 08:37 Resp 19 H 09/04/24 08:54 BP 154/95 09/04/24 08:00 Pulse Ox 88 L 09/04/24 11:44 O2 Del Method Nasal Cannula 09/04/24 08:37 O2 Flow Rate 2 09/04/24 11:44 Discharge Plan Discharge Patient Disposition: Home Condition: Stable Prescriptions: New levalbuterol HCl 0.63 mg/3 mL Solution For Nebulization 0.63 mg inhalation Q6H.RESP PRN (Reason: wheezing) 7 Days Qty: 84 0RF prednisone 20 mg tablet 20 mg PO BID 5 Days Qty: 10 0RF Continued Eliquis 5 mg tablet 5 mg PO BID dorzolamide 2 % drops 1 drp ophthalmic (eye) TID metoprolol tartrate 25 mg tablet 25 mg PO BID atorvastatin [Lipitor] 40 mg tablet 40 mg PO DAILY amiodarone 200 mg tablet 200 mg PO DAILY ondansetron 8 mg tablet,disintegrating 8 mg PO Q6H PRN (Reason: Nausea) Rx Instructions: Take 1/2-1 tab every 6 hours as needed for nausea and vomiting spironolactone 25 mg tablet 25 mg PO DAILY latanoprost 0.005 % drops 1 drp ophthalmic (eye) QPM hydrocodone-acetaminophen 7.5-325 mg tablet 1 tab PO TID PRN (Reason: Pain) ferrous gluconate 324 mg (38 mg iron) tablet 324 mg PO DAILY Trelegy Ellipta 200-62.5-25 mcg blister with device 1 inh INHALATION DAILY potassium chloride 20 mEq tablet extended release 20 meq PO DAILY spironolacton-hydrochlorothiaz 25-25 mg tablet 1 tab PO DAILY diltiazem HCl [Tiadylt ER] 360 mg capsule,extended release 24 hr 360 mg PO DAILY levothyroxine 88 mcg tablet 88 mcg PO DAILY pantoprazole 40 mg tablet,delayed release (DR/EC) 40 mg PO DAILY Changed furosemide 20 mg tablet 20 mg PO DAILY 30 Days Qty: 0 0RF Discontinued levothyroxine 75 mcg tablet 75 mcg PO QAM Discharge Orders: Discharge Order (Routine); Ordered 09/04/24 Ordered By: Sulema Hernandez Other Ambulatory Orders: DME: Nebulizer with Neb Kit (Order) Location: None Selected Ordered By: Sulema Hernandez DME: Oxygen (Order) Location: None Selected Ordered By: Sulema Hernandez Referrals: Mega Martinez MD [Primary Care Provider] - 09/07/24 9:30 am Discharge Diet: Usual diet Discharge Activity: Resume usual activity Patient Instructions: Prednisone (By mouth) (Prednisone Intensol, Prednicot, Deltasone, Cori), Levalbuterol (By breathing) (Xopenex, Xopenex HFA, Xopenex Pediatric), Acute Kidney Injury (DC), COPD Stoplight, Chest Pain Stoplight, Opioid Safety Discharge Attestations Time Spent in Discharge Care*: greater than 30 min Quality Metrics Clinical Quality Measures [ No reported AMI, CVA or VTE this stay] Coding Level of Care Code Acute Code for Chg Fwd Diagnoses Acute hypoxic respiratory failure J96.01 DONELL (acute kidney injury) N17.9 Acute exacerbation of chronic obstructive pulmonary disease (COPD) J44.1
--- NOTE | 2024-09-04 13:31 | PC.NURSE ---
delay in discharge due to waiting on patient's daughter and her to come pick patient up.
== END 2024-09-04 16:55 | disposition home or self-care (01) | DRG 682 ==
LOC: ER 20:49 → CSU 20:57
PROVIDERS: Admitting Provider Internal Medicine; Emergency Provider Family Medicine; PCP Family Medicine; Visit Provider Student in an Organized Health Care Education/Training Program
DX: N17.9 Acute kidney failure, unspecified (principal); J96.01 Acute respiratory failure with hypoxia; J44.1 Chronic obstructive pulmonary disease with (acute) exacerbation; I48.92 Unspecified atrial flutter; E87.3 Alkalosis; I48.91 Unspecified atrial fibrillation; F17.210 Nicotine dependence, cigarettes, uncomplicated; G89.29 Other chronic pain; M54.9 Dorsalgia, unspecified; I20.89 Other forms of angina pectoris; I10 Essential (primary) hypertension; E78.5 Hyperlipidemia, unspecified; I73.9 Peripheral vascular disease, unspecified; G47.33 Obstructive sleep apnea (adult) (pediatric); E03.9 Hypothyroidism, unspecified; H40.9 Unspecified glaucoma; H26.9 Unspecified cataract; K21.9 Gastro-esophageal reflux disease without esophagitis; R11.2 Nausea with vomiting, unspecified; R13.10 Dysphagia, unspecified; D50.9 Iron deficiency anemia, unspecified; D72.829 Elevated white blood cell count, unspecified; Z79.01 Long term (current) use of anticoagulants; Z79.899 Other long term (current) drug therapy; Z79.51 Long term (current) use of inhaled steroids; Z79.890 Hormone replacement therapy; Z88.0 Allergy status to penicillin; Z88.8 Allergy status to other drugs, medicaments and biological substances; Z91.018 Allergy to other foods; Z91.048 Other nonmedicinal substance allergy status; Z90.49 Acquired absence of other specified parts of digestive tract; Z98.51 Tubal ligation status; Z90.710 Acquired absence of both cervix and uterus; Z82.49 Family history of ischemic heart disease and other diseases of the circulatory system; Z82.0 Family history of epilepsy and other diseases of the nervous system; Z85.09 Personal history of malignant neoplasm of other digestive organs; Z95.0 Presence of cardiac pacemaker; Z85.841 Personal history of malignant neoplasm of brain; Z71.6 Tobacco abuse counseling; R94.31 Abnormal electrocardiogram [ECG] [EKG]
CPT/HCPCS: 36415; 36600; 71045; 80051; 80053; 81003; 82330; 82436; 82805; 83735; 84100; 84300; 84443; 84484; 84540; 85025; 85610; 85730; 87637; 93005; 94640; 94760; 96372; 96374; 97116; 97161; 99214; 99285; A9270; J1650; J2919; J3490; J7614; J7644; J9999

== ENCOUNTER 2024-09-19 20:00 | Outpatient (CLI) | payer MEDICARE, SELFPAY | END 2024-09-19 20:01 | disposition home or self-care (01) | LOC: SLEEP 09-20 01:43 | PROVIDERS: PCP Family Medicine; Visit Provider Anesthesiology Pain Medicine | DX: G47.33 Obstructive sleep apnea (adult) (pediatric) (principal); G47.36 Sleep related hypoventilation in conditions classified elsewhere; I48.91 Unspecified atrial fibrillation | CPT/HCPCS: 95810 ==

== ENCOUNTER 2024-10-05 10:49 | Emergency (ER) | payer MEDICARE, SELFPAY ==
[2024-10-05] VITALS (7 sets, daily range): BP systolic 107–132; BP diastolic 72–87; PULSE 60–100; RESP 18; TEMP 37; O2SAT 87–93; BMI 23.5
--- NOTE | 2024-10-05 11:08 | XR_ITS ---
WS: [id number] Portable AP upright chest, 10/05/2024 Clinical Data: R rib pain? Comparison: Portable chest, 08/31/2024 Findings: No nodules, masses or effusions are seen. The heart is normal. The pulmonary vascularity is not increased. No pneumonia or pneumothorax is seen. The cardiac pacemaker remains in the same position. The aortic arch and descending thoracic aorta show tortuosity. XR/XR chest 1V portable [id number] Impression: Atherosclerosis.
--- NOTE | 2024-10-05 11:09 | CTR_ITS ---
PROCEDURE INFORMATION: Exam: CT Abdomen And Pelvis With Contrast Exam date and time: 10/05/2024 11:38 AM Age: 69 years old Clinical indication: Abdominal pain; Localized; Right; Prior surgery; Surgery date: 6+ months; Surgery type: Pacer, 1/4 liver removed (not cancer per pt) doesn't know why they removed it; Additional info: R abdominal pain TECHNIQUE: Imaging protocol: Computed tomography of the abdomen and pelvis with contrast. Radiation optimization: All CT scans at this facility use at least one of these dose optimization techniques: automated exposure control; mA and/or kV adjustment per patient size (includes targeted exams where dose is matched to clinical indication); or iterative reconstruction. Contrast material: OMNI 350; Contrast volume: 100 ml; Contrast route: INTRAVENOUS (IV); COMPARISON: CT abdomen pelvis w con* [id number] 03/14/2024 12:15 PM RADIATION DOSE METRICS: Total DLP (mGy-cm): 450.31 FINDINGS: Liver: Stable partial hepatectomy. Gallbladder and biliary ducts: Marked intra and extrahepatic biliary distension similar to what was present previously. Pancreas: Normal. No ductal dilation. Spleen: Normal. No splenomegaly. Adrenal glands: Normal. No mass. 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 Renal lobulations. Slightly rotated left kidney with lobulations. Stomach and bowel: Unremarkable. No obstruction. No mucosal thickening. Appendix: No evidence of appendicitis. Intraperitoneal space: Unremarkable. No free air. No significant fluid collection. Vasculature: Unremarkable. No abdominal aortic aneurysm. Lymph nodes: Unremarkable. No enlarged lymph nodes. Urinary bladder: Unremarkable as visualized. Reproductive: Hysterectomy. Bones/joints: L5 spondylolysis with mild spondylolisthesis. Soft tissues: Unremarkable. CT/CT abdomen pelvis w con* [id number] IMPRESSION: 1. No significant interval change. Stable postoperative changes involving the liver with a markedly dilated intra and extrahepatic biliary system. The appearance is unchanged. 2. 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
--- NOTE | 2024-10-05 11:09 | W.ED.ABDPA2 ---
HPI - Abdominal Pain General: Chief Complaint: Back Pain/Injury Stated Complaint: right side rib pain Time Seen by Provider: 10/05/24 10:57 Source: patient and family Mode of arrival: ambulatory Limitations: no limitations History of Present Illness: Patient is a 69-year-old female presents to ED today along with family for evaluation of pain involving her right side. Family states she fell approximately 3.5 weeks ago after her eyes gave out on her . States she has a history of cataracts and glaucoma and does not see very well. She is reportedly going to have surgery on these in the upcoming future. Patient states she did not have any pain immediately following the fall and has been doing pretty good until the last few days. Family states that she laid in bed over the past 2 to 3 days with chills and sweats. No reported fevers. She has noticed right sided abdominal/chest wall/rib pain only present over the past few days. Again no pain immediately following the fall. She is not having any vomiting or changes in bowel habits. 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 MD elicited complaint: abdominal pain Pertinent past history: none Onset (ago): day(s) Pain Consistency: constant Location: RUQ, RLQ and R flank Severity: moderate Radiation: none Migration to: no migration Exacerbating factors: nothing Relieving factors: nothing Associated Symptoms: Reports chills; Denies diarrhea, dysuria, fever(s), hematuria, nausea, syncope and vomiting Related Data Home Medications ?Medication ?Instructions ?Recorded ?Confirmed apixaban 5 mg tablet (Eliquis) 5 mg PO BID 08/01/19 10/05/24 dorzolamide 2 % eye drops 1 drp ophthalmic (eye) TID 04/20/21 10/05/24 ferrous gluconate 324 mg (38 mg 324 mg PO DAILY 04/20/24 10/05/24 iron) tablet fluticasone fur. 200 mcg-umeclid 1 inh inhalation DAILY 04/20/24 10/05/24 62.5 mcg-vilant 25 mcg inhalat.powder (Trelegy Ellipta) hydrocodone 7.5 mg-acetaminophen 1 tab PO TID PRN Pain 04/20/24 10/05/24 325 mg tablet latanoprost 0.005 % eye drops 1 drp ophthalmic (eye) QPM 04/20/24 10/05/24 amiodarone 200 mg tablet 200 mg PO DAILY 07/31/24 10/05/24 atorvastatin 40 mg tablet (Lipitor) 40 mg PO DAILY 07/31/24 10/05/24 metoprolol tartrate 25 mg tablet 25 mg PO BID 07/31/24 10/05/24 ondansetron 8 mg disintegrating 4 - 8 mg PO Q6H PRN Nausea And 07/31/24 10/05/24 tablet Vomiting spironolactone 25 mg tablet 25 mg PO DAILY 08/28/24 10/05/24 diltiazem HCl 360 mg capsule,24 360 mg PO DAILY 09/01/24 10/05/24 hr,extended release (Tiadylt ER) pantoprazole 40 mg tablet,delayed 40 mg PO DAILY 09/01/24 10/05/24 release furosemide 20 mg tablet 20 mg PO TID 10/05/24 10/05/24 levothyroxine 75 mcg tablet 75 mcg PO DAILY 10/05/24 10/05/24 Allergies Allergy/AdvReac Type Severity Reaction Status Date / Time orange juice Allergy Intermediate ADR-Vomitin Verified 08/28/24 10:34 g amoxicillin Allergy unk Verified 08/28/24 10:34 buspirone Allergy unk Verified 08/28/24 10:34 hydralazine Allergy coughing Verified 08/28/24 10:34 and nausea Penicillins Allergy shortness Verified 08/28/24 10:34 of breath povidone-iodine (From Allergy unk Verified 08/28/24 10:34 Betadine) soap (From Betadine) Allergy unk Verified 08/28/24 10:34 Eajzmhx-JZH-HtO Reductase Allergy FLu like Verified 08/28/24 10:34 Inhibitor (Yvptxlg-Zmm-Hkf symptoms Reductase Inhibitor) carvedilol AdvReac Severe cough Verified 08/28/24 10:34 amlodipine AdvReac BLE edema Verified 08/28/24 10:34 valsartan AdvReac unknown Verified 08/28/24 10:34 Review of Systems Const: Reports: chills, fatigue, malaise and other (sweats); Denies: fever(s) or body aches Eyes: Reports: other (chronic glaucoma/cataracts) Card: Reports: chest pain (R rib pain); Denies: palpitations, irregular heart rhythm, edema, swelling of feet/ankles, lightheadedness, syncope, pre-syncope, dyspnea on exertion, orthopnea, leg pain with exertion or acrocyanosis Resp: Denies: dyspnea, pain on inspiration or chest congestion GI: Reports: abdominal pain; Denies: nausea, vomiting or diarrhea : Denies: flank pain, difficulty voiding, dysuria or hematuria Musc: Denies: neck pain, back pain, extremity pain, extremity swelling, joint pain or joint swelling Skin/Breast: Denies: rash Neuro: Denies: headache(s), numbness in extremities, weakness in extremities or sensory changes PFSH ED PFSH: Medical History Chest pain Peripheral neuropathy Glaucoma Herpes genitalis 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 Brother CAD (coronary artery disease) Brother , 2 brothers of heart disease CAD (coronary artery disease) Denies family history of Diabetes Clotting disorder Dementia Hyperlipidemia Psychiatric illness Chronic kidney disease (CKD) Suicide Anesthesia complication Bleeding disorder Family history of premature coronary artery disease Lung disease Cancer Hypertension Stroke Social History Smoking and tobacco/nicotine status: current every day tobacco/nicotine user Alcohol intake: never Substance/Drug Use: never Physical Exam Const: COMMON NORMALS: no acute distress, average body habitus, patient oriented x3, no limitations, alert and well nourished GENERAL APPEARANCE: cooperative ORIENTATION/CONSCIOUSNESS: Yes awake, Yes oriented to person, Yes oriented to place and Yes oriented to time HENMT: COMMON NORMALS: normocephalic and atraumatic HEAD & SCALP: normal to inspection, normocephalic and atraumatic Neck/C-Spine: COMMON NORMALS: full ROM, no lymphadenopathy, supple and no meningeal signs CERVICAL SPINE: Yes cervical ROM normal and No Cervical spine tenderness Chest: COMMONS NORMALS: normal inspection of the chest OTHER: tenderness R abdomen maybe up onto R lower anterior ribs; no crepitus noted; no exernal signs of trauma Resp: COMMON NORMALS: normal respiratory effort and clear to auscultation bilaterally AUSCULTATION: clear to auscultation bilaterally Cardio: COMMON NORMALS: regular rate and regular rhythm RATE: regular rate RHYTHM: regular rhythm GI: COMMON NORMALS: Normal to inspection, nondistended, normoactive bowel sounds present, Soft to palpation, No hepatosplenomegaly present and no masses INSPECTION: Yes normal to inspection AUSCULTATION: Yes normoactive bowel sounds PALPATION: Yes Soft to palpation, Yes Tenderness to palpation present (GI) (R abdomen), No Guarding due to palpation present (GI), No Rigid due to palpation and Yes No hepatosplenomegaly present : COMMON NORMALS: Yes no CVA tenderness BLADDER/KIDNEY EXAM: Yes no CVA tenderness Back/Pelvis: COMMON NORMALS: no CVA tenderness and thoracic and lumbar spine normal to inspection Extremity: COMMON NORMALS: normal to inspection, no clubbing, cyanosis or edema, no calf tenderness and no pedal edema GENERAL: Yes normal exam except as noted Neuro: COMMON NORMALS: patient oriented x3 SENSORIUM/ORIENTATION: Yes alert, Yes oriented to person, Yes oriented to place and Yes oriented to time MENINGEAL SIGNS: Yes no meningeal signs Skin: COMMON NORMALS: no rashes or lesions noted GENERAL SKIN EXAM: no rashes or lesions noted Course Vital Signs: Vital signs: Vital Signs Temperature 98.6 F 10/05/24 11:02 Pulse Rate 69 10/05/24 11:02 Respiratory Rate 18 10/05/24 11:02 Blood Pressure 128/87 10/05/24 11:02 Pulse Oximetry 93 10/05/24 11:02 Oxygen Delivery Me thod Room Air 10/05/24 11:02 MDM - Abdominal Pain Medical Decision Making Patient clinically appears in no acute distress. Her vital signs are stable. CXR is unremarkable. Abdominal/pelvis CT showing no significant change and no etiology regarding her discomfort. Blood work overall is stable apart from hypokalemia at 2.8. She states she does have a history of hypokalemia and is supposed to take potassium at home but could not swallow the large pills. 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 Her magnesium is normal. She was given IV/PO potassium replacement here. Her UA is clear. EKG showing paced rhythm. She does have a prolonged QTc. Discussed EKG with Dr. Cortez. Nothing further to do at this time. Pacemaker was interrogated and I took a phone report-attendant stated pacemaker is functioning appropriately. Patient states she has upcoming appointment with her PCP Dr. Martinez. Patient stable from an ED standpoint. Return to ED precautions discussed. Medical Records I reviewed the patient's medical records. Lab Data I reviewed the patient's lab results. 10/05/24 11:17 10/05/24 11:17 Labs/Radiology: Radiology Impressions Chest X-Ray 10/05/24 11:08 Impression: Atherosclerosis. Abdomen/Pelvis CT 10/05/24 11:09 IMPRESSION: 1. No significant interval change. Stable postoperative changes involving the liver with a markedly dilated intra and extrahepatic biliary system. The appearance is unchanged. 2. 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 Laboratory Results WBC 9.90 10^3/uL (3.29-11.43) 10/05/24 11:17 RBC 5.21 10^6/uL (3.85-5.65) 10/05/24 11:17 Hgb 15.60 g/dL (11.27-16.99) 10/05/24 11:17 Hct 46.4 % (36-47) 10/05/24 11:17 MCV 89.1 fl (85-98) 10/05/24 11:17 MCH 29.9 pg (27-33) 10/05/24 11:17 MCHC 33.6 g/dL (30-55) 10/05/24 11:17 RDW 14.1 % (12.1-15.1) 10/05/24 11:17 Plt Count 148 10^3/cmm (157-399) L 10/05/24 11:17 MPV 10.3 fL (7.4-10.4) 10/05/24 11:17 Neut % (Auto) 67.8 % 10/05/24 11:17 Lymph % (Auto) 14.6 % 10/05/24 11:17 Haines % (Auto) 16.5 % 10/05/24 11:17 Eos % (Auto) 0.4 % 10/05/24 11:17 Baso % (Auto) 0.4 % 10/05/24 11:17 Neut # (Auto) 6.71 10^3/uL (1.8-7.7) 10/05/24 11:17 Lymph # (Auto) 1.5 10^3/uL (0.8-4.8) 10/05/24 11:17 Haines # (Auto) 1.6 10^3/uL (0.2-0.9) H 10/05/24 11:17 Eos # (Auto) 0.0 10^3/uL (0.0-0.8) 10/05/24 11:17 Baso # (Auto) 0.0 10^3/uL (0.0-0.1) 10/05/24 11:17 Nucleated RBC % (auto) 0 % 10/05/24 11:17 Nucleated RBCs # 0.0 /100WBC 10/05/24 11:17 Sodium 137 mmol/L (136-145) 10/05/24 11:17 Potassium 2.8 mmol/L (3.5-5.1) L* 10/05/24 11:17 Chloride 99 mmol/L (98-107) 10/05/24 11:17 Carbon Dioxide 23 mmol/L (22-29) 10/05/24 11:17 Anion Gap 17.8 (5-19) 10/05/24 11:17 BUN 16 mg/dL (8-23) 10/05/24 11:17 Creatinine 1.2 mg/dL (0.5-0.9) H 10/05/24 11:17 GFR Calculation 44.4 mL/min (90-130) L 10/05/24 11:17 Glucose 98 mg/dL (65-115) 10/05/24 11:17 Calculated Osmolality 285 mOsm/kg (285-295) 10/05/24 11:17 Calcium 9.3 mg/dL (8.5-10.5) 10/05/24 11:17 Magnesium 1.9 mg/dL (1.7-2.3) 10/05/24 11:17 Total Bilirubin 0.6 mg/dL (0.15-1.2) 10/05/24 11:17 AST 16 U/L (0-32) 10/05/24 11:17 ALT 14 U/L (0-33) 10/05/24 11:17 Alkaline Phosphatase 83 U/L (35-105) 10/05/24 11:17 Total Protein 6.9 g/dL (6.6-8.7) 10/05/24 11:17 Albumin 3.7 g/dL (3.5-5.2) 10/05/24 11:17 Globulin 3.2 g/dL (1.3-4.6) 10/05/24 11:17 Lipase 12 U/L (13-60) L 10/05/24 11:17 Urine Color Yellow (Yellow) 10/05/24 12:04 Urine Appearance Clear (CLEAR) 10/05/24 12:04 Urine pH 7.0 (5-7) 10/05/24 12:04 Ur Specific [place] 1.021 (1.005-1.030) 10/05/24 12:04 Urine Protein Negative (Negative) 10/05/24 12:04 Urine Glucose (UA) Negative (Normal) 10/05/24 12:04 Urine Ketones Negative (Negative) 10/05/24 12:04 Urine Blood Negative (Negative) 10/05/24 12:04 Urine Nitrate Negative (Negative) 10/05/24 12:04 Urine Bilirubin Negative (Negative) 10/05/24 12:04 Urine Urobilinogen 0.2 mg/dL (Negative) 10/05/24 12:04 Ur Leukocyte Esterase Negative (Negative) 10/05/24 12:04 Urine RBC 0-2 /hpf (0-2) 10/05/24 12:04 Urine WBC 0-5 /hpf (0-5) 10/05/24 12:04 Ur Squamous Epith Cells 0-5 /hpf (0-5) 10/05/24 12:04 Amorphous Sediment Not Reportable 10/05/24 12:04 Urine Bacteria None seen /hpf (NONE) 10/05/24 12:04 Hyaline Casts 0.81 /lpf 10/05/24 12:04 All radiology interpretation(s) finalized by discharge Discharge Plan Discharge Patient Disposition: Home Clinical Impression: Right lateral abdominal pain, Hypokalemia Condition: Stable Prescriptions: No Action Eliquis 5 mg tablet 5 mg PO BID dorzolamide 2 % drops 1 drp ophthalmic (eye) TID metoprolol tartrate 25 mg tablet 25 mg PO BID atorvastatin [Lipitor] 40 mg tablet 40 mg PO DAILY amiodarone 200 mg tablet 200 mg PO DAILY ondansetron 8 mg tablet,disintegrating 4 - 8 mg PO Q6H PRN (Reason: Nausea And Vomiting) spironolactone 25 mg tablet 25 mg PO DAILY levothyroxine 75 mcg tablet 75 mcg PO DAILY furosemide 20 mg tablet 20 mg PO TID latanoprost 0.005 % drops 1 drp ophthalmic (eye) QPM hydrocodone-acetaminophen 7.5-325 mg tablet 1 tab PO TID PRN (Reason: Pain) ferrous gluconate 324 mg (38 mg iron) tablet 324 mg PO DAILY Trelegy Ellipta 200-62.5-25 mcg blister with device 1 inh INHALATION DAILY diltiazem HCl [Tiadylt ER] 360 mg capsule,extended release 24 hr 360 mg PO DAILY pantoprazole 40 mg tablet,delayed release (DR/EC) 40 mg PO DAILY Discharge Orders: Discharge ED (Routine); Ordered 10/05/24 Ordered By: Dayana Rodriguez Referrals: Mega Martinez MD [Primary Care Provider, Family Practice] Patient Instructions: Hypokalemia (ED), Abdominal Pain (ED) Activity Restrictions/Additional Instructions: As we discussed, please follow-up with your primary care provider as scheduled. They can recheck your potassium as you were given IV and PO potassium here in the ED prior to discharge. You can speak to him further regarding pain. You may return to the emergency department at anytime for any further concerns you may have. Print Language: Ethiopian Coding Level of Care Code ED Tool And Die Maker/Designer for Jordan Espinoza
[2024-10-05 11:22] LABS: Basophils % 0.4 %; Eosinophils % 0.4 %; Hematocrit 46.4 % (36-47); Lymphocytes # 1.5 10^3/uL (0.8-4.8); Lymphocytes % 14.6 %; Mean Corpuscular HGB Conc 33.6 g/dL (30-55); Mean Corpuscular Hemoglobin 29.9 pg (27-33); Mean Corpuscular Volume 89.1 fl (85-98); Mean Platelet Volume 10.3 fL (7.4-10.4); Monocytes # 1.6 10^3/uL (0.2-0.9); Monocytes % 16.5 %; Neutrophils # 6.71 10^3/uL (1.8-7.7); Neutrophils % 67.8 %; Nucleated Red Blood Cells % 0 %; Platelet Count 148 10^3/cmm (157-399); Red Blood Count 5.21 10^6/uL (3.85-5.65); Red Cell Distribution Width 14.1 % (12.1-15.1)
[2024-10-05 11:39] LABS: Alanine Aminotransferase 14 U/L (0-33); Albumin Level 3.7 g/dL (3.5-5.2); Alkaline Phosphatase 83 U/L (35-105); Anion Gap 17.8 (5-19); Aspartate Amino Transferase 16 U/L (0-32); Blood Urea Nitrogen 16 mg/dL (8-23); Calcium 9.3 mg/dL (8.5-10.5); Carbon Dioxide 23 mmol/L (22-29); Chloride 99 mmol/L (98-107); Globulin 3.2 g/dL (1.3-4.6); Glomerular Filtration Rate 44.4 mL/min (90-130); Glucose 98 mg/dL (65-115); Lipase 12 U/L (13-60); Osmolality Calculated 285 mOsm/kg (285-295); Sodium 137 mmol/L (136-145); Total Bilirubin 0.6 mg/dL (0.15-1.2); Total Protein 6.9 g/dL (6.6-8.7)
[2024-10-05 11:42] LABS: Potassium 2.8 mmol/L (3.5-5.1)
--- NOTE | 2024-10-05 11:44 | ECG_ITS ---
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 Measurements Intervals [place] Rate: 60 P: 0 OK: 0 QRS: -30 QRSD: 202 T: 129 QT: 562 QTc: 565 Interpretive Statements ELECTRONIC VENTRICULAR PACEMAKER PROLONGED QT INTERVAL Compared to ECG 08/31/2024 23:13:45 Prolonged QT interval now present Left ventricular hypertrophy no longer present ST (T wave) deviation no longer present Electronically Signed On 10-08-2024 10:32:38 CDT by James Agrawal M.D. [email or web address]
[2024-10-05] MEDS: iohexol 350 mg/mL 500 mL Btl (per mL) IV (11:46)
[2024-10-05] MEDS: potassium chloride oral liq 20 mEq/15 mL UDC 40 MEQ PO (12:01)
[2024-10-05] MEDS: lidocaine 1% 5 ML in potassium chloride premix 100 ML 52.5 ML IV (12:01)
[2024-10-05 12:08] LABS: Magnesium 1.9 mg/dL (1.7-2.3)
--- NOTE | 2024-10-05 12:46 | PC.PHAR ---
Guardian states pt has stopped taking Spironolactone 25mg-last fill 10/01/24 30ds.
[2024-10-05 13:07] LABS: Bilirubin Urine Negative (Negative); Blood Urine Negative (Negative); Glucose Urine UA Negative (Normal); Ketones Urine Negative (Negative); Leukocyte Esterase Urine Negative (Negative); Nitrate Urine Negative (Negative); Protein Urine Negative (Negative); Specific Gravity, Urine 1.021 (1.005-1.030); Urine Appearance Clear (CLEAR); Urine Color Yellow (Yellow); Urobilinogen Urine 0.2 mg/dL (Negative)
[2024-10-05 13:09] LABS: Add Urine Microscopic? YES; Bacteria Urine None Seen /hpf; Hyaline Casts Urine 0.81 /lpf; RBC Urine 0-2 /hpf (0-2); Squamous Epithelial Cell Urine 0-5 /hpf (0-5); WBC Urine 0-5 /hpf (0-5)
== END 2024-10-05 15:26 | disposition home or self-care (01) ==
PROVIDERS: Emergency Provider Physician Assistant; PCP Family Medicine
DX: R10.9 Unspecified abdominal pain (principal); E87.6 Hypokalemia; Z79.01 Long term (current) use of anticoagulants; Z72.0 Tobacco use; I10 Essential (primary) hypertension; Z85.841 Personal history of malignant neoplasm of brain; Z85.89 Personal history of malignant neoplasm of other organs and systems
CPT/HCPCS: 71045; 74177; 80053; 81001; 83690; 83735; 85025; 93005; 96365; 96366; 99285; J3480; J9999

== ENCOUNTER 2024-10-26 14:08 | Emergency (ER) | payer MEDICARE, SELFPAY ==
[2024-10-26 14:11] VITALS: BP 111/83; PULSE 71; RESP 16; TEMP 36.4; O2SAT 93; BMI 23.3
[2024-10-26 14:50] LABS: Basophils # 0.1 10^3/uL (0.0-0.1); Basophils % 1.3 %; Eosinophils # 0.2 10^3/uL (0.0-0.8); Eosinophils % 2.4 %; Hematocrit 50.9 % (36-47); Lymphocytes # 1.9 10^3/uL (0.8-4.8); Lymphocytes % 26.5 %; Mean Corpuscular HGB Conc 33.2 g/dL (30-55); Mean Corpuscular Hemoglobin 30.1 pg (27-33); Mean Corpuscular Volume 90.7 fl (85-98); Mean Platelet Volume 10.4 fL (7.4-10.4); Monocytes # 0.7 10^3/uL (0.2-0.9); Monocytes % 10.5 %; Neutrophils # 4.14 10^3/uL (1.8-7.7); Nucleated Red Blood Cells % 0 %; Platelet Count 199 10^3/cmm (157-399); Red Blood Count 5.61 10^6/uL (3.85-5.65); Red Cell Distribution Width 14.5 % (12.1-15.1); White Blood Count 7.02 10^3/uL (3.29-11.43)
--- NOTE | 2024-10-26 15:03 | W.ED.GENADLT ---
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 Family states they have been getting elevated blood pressure readings with systolics over 200s over the past 6 days. Family states they are using an automatic blood pressure cuff on her wrist. Patient does take medications for her blood pressure. Blood pressure at time of my examination is 120s/80s. Patient does not complain of a headache or visual changes. She is not having any chest pain. Family reports generalized weakness although this has been an ongoing issue for patient for months. She does walk with a walker. Family states she resides with them and the house in which they live, is full of stuff and furniture making it impossible for a walker to walk through. Family does states she can walk with a walker out in public just fine . They state they are unwilling to get rid of anyting to provide a walkway for a walker. Daughter states she helps her mother walk in the home. She does complain that her legs sometimes ache . Onset (ago): day(s) Relieving factors: none Exacerbating factors: none Associated symptoms: Deny chest pain, dyspnea, headache(s), malaise, nausea, rash, palpitations, syncope or vomiting Treatments prior to arrival: none Related Data Home Medications ?Medication ?Instructions ?Recorded ?Confirmed apixaban 5 mg tablet (Eliquis) 5 mg PO BID 08/01/19 10/05/24 dorzolamide 2 % eye drops 1 drp ophthalmic (eye) TID 04/20/21 10/05/24 ferrous gluconate 324 mg (38 mg 324 mg PO DAILY 04/20/24 10/05/24 iron) tablet fluticasone fur. 200 mcg-umeclid 1 inh inhalation DAILY 04/20/24 10/05/24 62.5 mcg-vilant 25 mcg inhalat.powder (Trelegy Ellipta) hydrocodone 7.5 mg-acetaminophen 1 tab PO TID PRN Pain 04/20/24 10/05/24 325 mg tablet latanoprost 0.005 % eye drops 1 drp ophthalmic (eye) QPM 04/20/24 10/05/24 amiodarone 200 mg tablet 200 mg PO DAILY 07/31/24 10/05/24 atorvastatin 40 mg tablet (Lipitor) 40 mg PO DAILY 07/31/24 10/05/24 metoprolol tartrate 25 mg tablet 25 mg PO BID 07/31/24 10/05/24 ondansetron 8 mg disintegrating 4 - 8 mg PO Q6H PRN Nausea And 07/31/24 10/05/24 tablet Vomiting spironolactone 25 mg tablet 25 mg PO DAILY 08/28/24 10/05/24 diltiazem HCl 360 mg capsule,24 360 mg PO DAILY 09/01/24 10/05/24 hr,extended release (Tiadylt ER) pantoprazole 40 mg tablet,delayed 40 mg PO DAILY 09/01/24 10/05/24 release furosemide 20 mg tablet 20 mg PO TID 10/05/24 10/05/24 levothyroxine 75 mcg tablet 75 mcg PO DAILY 10/05/24 10/05/24 Allergies Allergy/AdvReac Type Severity Reaction Status Date / Time orange juice Allergy Intermediate ADR-Vomitin Verified 08/28/24 10:34 g amoxicillin Allergy unk Verified 08/28/24 10:34 buspirone Allergy unk Verified 08/28/24 10:34 hydralazine Allergy coughing Verified 08/28/24 10:34 and nausea Penicillins Allergy shortness Verified 08/28/24 10:34 of breath povidone-iodine (From Allergy unk Verified 08/28/24 10:34 Betadine) soap (From Betadine) Allergy unk Verified 08/28/24 10:34 Poherll-RMZ-CbG Reductase Allergy FLu like Verified 08/28/24 10:34 Inhibitor (Xobeycb-Ctq-Oah symptoms Reductase Inhibitor) carvedilol AdvReac Severe cough Verified 08/28/24 10:34 amlodipine AdvReac BLE edema Verified 08/28/24 10:34 valsartan AdvReac unknown Verified 08/28/24 10:34 Review of Systems Const: Reports: other (generalized weakness); Denies: fever(s), chills, body aches, fatigue or malaise Eyes: Denies: change in vision or blurry vision Card: Denies: chest pain, palpitations, irregular heart rhythm, edema, swelling of feet/ankles, lightheadedness, syncope, pre-syncope or dyspnea on exertion Resp: Denies: dyspnea, productive cough or pain on inspiration GI: Denies: abdominal pain, nausea, vomiting, heartburn or diarrhea : Denies: flank pain or dysuria Musc: Reports: extremity pain ( ache bilaterally ); Denies: neck pain, back pain, extremity swelling, joint pain, joint swelling, joint redness, joint warmth or joint stiffness Skin/Breast: Denies: rash Neuro: Denies: headache(s), numbness in extremities, weakness in extremities or sensory changes PFSH ED PFSH: Medical History Chest pain Peripheral neuropathy Glaucoma Herpes genitalis 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 Brother CAD (coronary artery disease) Brother , 2 brothers of heart disease CAD (coronary artery disease) Denies family history of Diabetes Clotting disorder Dementia Hyperlipidemia Psychiatric illness Chronic kidney disease (CKD) Suicide Anesthesia complication Bleeding disorder Family history of premature coronary artery disease Lung disease Cancer Hypertension Stroke Social History Smoking and tobacco/nicotine status: current every day tobacco/nicotine user Alcohol intake: never Substance/Drug Use: never Physical Exam Const: COMMON NORMALS: no acute distress, average body habitus, patient oriented x3, no limitations, healthy appearing, alert and well nourished GENERAL APPEARANCE: cooperative ORIENTATION/CONSCIOUSNESS: Yes awake, Yes oriented to person, Yes oriented to place and Yes oriented to time HENMT: COMMON NORMALS: normocephalic and atraumatic HEAD & SCALP: normal to inspection, normocephalic and atraumatic FACE & SINUS: normal facial exam and face symmetric Eye: COMMON NORMALS: Equal, round and reactive pupils present and EOMs intact bilaterally GENERAL EYE: appearance normal, both eyes and all related structures and normal light reflex PUPIL: Yes Equal, round and reactive pupils present DIRECT OPHTHALMOSCOPY: Yes normal light reflex Neck/C-Spine: COMMON NORMALS: full ROM, no lymphadenopathy, supple and no meningeal signs Chest: COMMONS NORMALS: normal inspection of the chest Resp: COMMON NORMALS: normal respiratory effort and clear to auscultation bilaterally AUSCULTATION: clear to auscultation bilaterally Cardio: COMMON NORMALS: regular rate and regular rhythm RATE: regular rate RHYTHM: regular rhythm GI: COMMON NORMALS: Normal to inspection, nondistended, normoactive bowel sounds present, Soft to palpation, non-tender, No hepatosplenomegaly present and no masses PALPATION: Yes Soft to palpation and Yes No hepatosplenomegaly present : COMMON NORMALS: Yes no CVA tenderness BLADDER/KIDNEY EXAM: Yes no CVA tenderness Back/Pelvis: COMMON NORMALS: no CVA tenderness, thoracic and lumbar spine normal to inspection and no thoracic nor lumbar tenderness Extremity: COMMON NORMALS: normal to inspection, full ROM, capillary refill normal, no joint enlargement, no clubbing, cyanosis or edema, no calf tenderness and no pedal edema GENERAL: Yes normal exam except as noted Neuro: JACKIE COMA SCALE: document GCS findings Jackie coma scale eye opening: Spontaneous [place] coma scale verbal response: Orientated [place] coma scale motor response: Obey commands Jackie coma scale total score: 15 COMMON NORMALS: patient oriented x3, CN's II-XII intact bilaterally, moves all extremities, no focal motor deficits and no sensory deficits noted SENSORIUM/ORIENTATION: Yes alert, Yes oriented to person, Yes oriented to place and Yes oriented to time MENINGEAL SIGNS: Yes no meningeal signs MOTOR EXAM: 5/5 motor strength present throughout Skin: COMMON NORMALS: no rashes or lesions noted GENERAL SKIN EXAM: no rashes or lesions noted Course Vital Signs: Vital signs: Vital Signs Temperature 97.5 F L 10/26/24 14:11 Pulse Rate 68 10/26/24 16:00 Respiratory Rate 16 10/26/24 14:11 Blood Pressure 115/79 10/26/24 16:00 Pulse Oximetry 93 10/26/24 16:00 Oxygen Delivery Me thod Room Air 10/26/24 16:00 MDM - General Adult Medical Decision Making Patient appears in absolutely NAD. Her blood pressures have been completely normal. On re-assessment it is 117/73. I would not adjust her blood pressure meds based on today's encounter. Recommend she take her cuff with her to her follow up PCP appointment and have them check accuracy. Her blood work overall is okay. Minor elevations to her BUN/Cr (24/2.1) but not far off from her baseline. She was given IV fluids here. UA clear. CXR normal. EKG with atrial fib which she has a history of. Discussed with Dr. Polk who also reviewed. Baseline trop without changes from previous. She has no complaints of chest pain, SOB, palpitations. She will be allowed discharge with recommendations to follow up with PCP. Medical Records I reviewed the patient's medical records. Lab Data I reviewed the patient's lab results. 10/26/24 14:44 10/26/24 14:44 Radiology Impressions Chest X-Ray 10/26/24 15:36 IMPRESSION: No acute findings. Laboratory Results WBC 7.02 10^3/uL (3.29-11.43) 10/26/24 14:44 RBC 5.61 10^6/uL (3.85-5.65) 10/26/24 14:44 Hgb 16.90 g/dL (11.27-16.99) 10/26/24 14:44 Hct 50.9 % (36-47) H 10/26/24 14:44 MCV 90.7 fl (85-98) 10/26/24 14:44 MCH 30.1 pg (27-33) 10/26/24 14:44 MCHC 33.2 g/dL (30-55) 10/26/24 14:44 RDW 14.5 % (12.1-15.1) 10/26/24 14:44 Plt Count 199 10^3/cmm (157-399) 10/26/24 14:44 MPV 10.4 fL (7.4-10.4) 10/26/24 14:44 Neut % (Auto) 59.0 % 10/26/24 14:44 Lymph % (Auto) 26.5 % 10/26/24 14:44 Leslie % (Auto) 10.5 % 10/26/24 14:44 Eos % (Auto) 2.4 % 10/26/24 14:44 Baso % (Auto) 1.3 % 10/26/24 14:44 Neut # (Auto) 4.14 10^3/uL (1.8-7.7) 10/26/24 14:44 Lymph # (Auto) 1.9 10^3/uL (0.8-4.8) 10/26/24 14:44 Leslie # (Auto) 0.7 10^3/uL (0.2-0.9) 10/26/24 14:44 Eos # (Auto) 0.2 10^3/uL (0.0-0.8) 10/26/24 14:44 Baso # (Auto) 0.1 10^3/uL (0.0-0.1) 10/26/24 14:44 Nucleated RBC % (auto) 0 % 10/26/24 14:44 Nucleated RBCs # 0.0 /100WBC 10/26/24 14:44 Sodium 136 mmol/L (136-145) 10/26/24 14:44 Potassium 3.9 mmol/L (3.5-5.1) 10/26/24 14:44 Chloride 99 mmol/L (98-107) 10/26/24 14:44 Carbon Dioxide 22 mmol/L (22-29) 10/26/24 14:44 Anion Gap 18.9 (5-19) 10/26/24 14:44 BUN 24 mg/dL (8-23) H 10/26/24 14:44 Creatinine 2.1 mg/dL (0.5-0.9) H 10/26/24 14:44 GFR Calculation 23.3 mL/min (90-130) L 10/26/24 14:44 Glucose 94 mg/dL (65-115) 10/26/24 14:44 Calculated Osmolality 286 mOsm/kg (285-295) 10/26/24 14:44 Calcium 9.5 mg/dL (8.5-10.5) 10/26/24 14:44 Total Bilirubin 0.7 mg/dL (0.15-1.2) 10/26/24 14:44 AST 17 U/L (0-32) 10/26/24 14:44 ALT 12 U/L (0-33) 10/26/24 14:44 Alkaline Phosphatase 83 U/L (35-105) 10/26/24 14:44 Troponin T Baseline 26 ng/L (0-10) H 10/26/24 14:44 Total Protein 7.4 g/dL (6.6-8.7) 10/26/24 14:44 Albumin 4.1 g/dL (3.5-5.2) 10/26/24 14:44 Globulin 3.3 g/dL (1.3-4.6) 10/26/24 14:44 Urine Color Yellow (Yellow) 10/26/24 15:00 Urine Appearance Clear (CLEAR) 10/26/24 15:00 Urine pH 6.5 (5-7) 10/26/24 15:00 Ur Specific [place] 1.008 (1.005-1.030) 10/26/24 15:00 Urine Protein Negative (Negative) 10/26/24 15:00 Urine Glucose (UA) Negative (Normal) 10/26/24 15:00 Urine Ketones Negative (Negative) 10/26/24 15:00 Urine Blood Negative (Negative) 10/26/24 15:00 Urine Nitrate Negative (Negative) 10/26/24 15:00 Urine Bilirubin Negative (Negative) 10/26/24 15:00 Urine Urobilinogen 0.2 mg/dL (Negative) 10/26/24 15:00 Ur Leukocyte Esterase Trace (Negative) A 10/26/24 15:00 Urine RBC 0-2 /hpf (0-2) 10/26/24 15:00 Urine WBC 0-5 /hpf (0-5) 10/26/24 15:00 Ur Squamous Epith Cells 0-5 /hpf (0-5) 10/26/24 15:00 Amorphous Sediment Not Reportable 10/26/24 15:00 Urine Bacteria None seen /hpf (NONE) 10/26/24 15:00 Hyaline Casts 2.46 /lpf 10/26/24 15:00 All radiology interpretation(s) finalized by discharge Discharge Plan Discharge Patient Disposition: Home Clinical Impression: Normal blood pressure, Generalized weakness Condition: Stable Prescriptions: No Action Eliquis 5 mg tablet 5 mg PO BID dorzolamide 2 % drops 1 drp ophthalmic (eye) TID metoprolol tartrate 25 mg tablet 25 mg PO BID atorvastatin [Lipitor] 40 mg tablet 40 mg PO DAILY amiodarone 200 mg tablet 200 mg PO DAILY ondansetron 8 mg tablet,disintegrating 4 - 8 mg PO Q6H PRN (Reason: Nausea And Vomiting) spironolactone 25 mg tablet 25 mg PO DAILY levothyroxine 75 mcg tablet 75 mcg PO DAILY furosemide 20 mg tablet 20 mg PO TID latanoprost 0.005 % drops 1 drp ophthalmic (eye) QPM hydrocodone-acetaminophen 7.5-325 mg tablet 1 tab PO TID PRN (Reason: Pain) ferrous gluconate 324 mg (38 mg iron) tablet 324 mg PO DAILY Trelegy Ellipta 200-62.5-25 mcg blister with device 1 inh INHALATION DAILY diltiazem HCl [Tiadylt ER] 360 mg capsule,extended release 24 hr 360 mg PO DAILY pantoprazole 40 mg tablet,delayed release (DR/EC) 40 mg PO DAILY Discharge Orders: Discharge ED (Routine); Ordered 10/26/24 Ordered By: Dayana Rodriguez Referrals: Mega Martinez MD [Primary Care Provider, Family Practice] Activity Restrictions/Additional Instructions: As we discussed, your blood pressure readings have been normal here. Please follow up with your primary care provider next week for re-evaluation. Bring your blood pressure cuff with you so they can check accuracy. They may also opt to recheck your kidney labs as they were mildly elevated today. Print Language: Kazakh Coding Level of Care Code ED Bioinformatics Scientist for Jordan Espinoza
[2024-10-26 15:07] LABS: Alanine Aminotransferase 12 U/L (0-33); Albumin Level 4.1 g/dL (3.5-5.2); Alkaline Phosphatase 83 U/L (35-105); Anion Gap 18.9 (5-19); Aspartate Amino Transferase 17 U/L (0-32); Blood Urea Nitrogen 24 mg/dL (8-23); Calcium 9.5 mg/dL (8.5-10.5); Carbon Dioxide 22 mmol/L (22-29); Chloride 99 mmol/L (98-107); Creatinine Clr Calc Pharmacy 25.1828; Globulin 3.3 g/dL (1.3-4.6); Glomerular Filtration Rate 23.3 mL/min (90-130); Glucose 94 mg/dL (65-115); Osmolality Calculated 286 mOsm/kg (285-295); Potassium 3.9 mmol/L (3.5-5.1); Sodium 136 mmol/L (136-145); Total Bilirubin 0.7 mg/dL (0.15-1.2); Total Protein 7.4 g/dL (6.6-8.7)
--- NOTE | 2024-10-26 15:22 | ECG_ITS ---
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 Measurements Intervals [place] Rate: 66 P: 0 NM: 0 QRS: 49 QRSD: 109 T: 252 QT: 463 QTc: 485 Interpretive Statements Possible atrial flutter POSSIBLE LEFT VENTRICULAR HYPERTROPHY [VOLTAGE CRITERIA PLUS LAE OR QRS WIDENING] ST DEVIATION AND MARKED T-WAVE ABNORMALITY, CONSIDER ANTEROLATERAL ISCHEMIA [-0.5+ mV T-WAVE IN I/aVL/V3-V6] ST DEVIATION AND MARKED T-WAVE ABNORMALITY, CONSIDER INFERIOR ISCHEMIA [-0.5+ mV T-WAVE IN II/aVF] Compared to ECG 10/05/2024 12:51:34 T-wave abnormality now present Possible ischemia now present Ventricular-paced complex(es) or rhythm no longer present Prolonged QT interval no longer present Electronically Signed On 10-26-2024 16:24:38 CDT by Ida Phipps M.D. [email or web address]
[2024-10-26] MEDS: sodium chloride 0.9% 1,000 ML 999 ML IV (15:34)
[2024-10-26 15:35] LABS: Bilirubin Urine Negative (Negative); Blood Urine Negative (Negative); Glucose Urine UA Negative (Normal); Ketones Urine Negative (Negative); Leukocyte Esterase Urine Trace (Negative); Nitrate Urine Negative (Negative); Protein Urine Negative (Negative); Specific Gravity, Urine 1.008 (1.005-1.030); Urine Appearance Clear (CLEAR); Urine Color Yellow (Yellow); Urobilinogen Urine 0.2 mg/dL (Negative); pH Urine 6.5 (5-7)
--- NOTE | 2024-10-26 15:36 | XRR_ITS ---
PROCEDURE INFORMATION: Exam: XR Chest Exam date and time: 10/26/2024 3:43 PM Age: 69 years old Clinical indication: Shortness of breath; Prior surgery; Surgery date: 6+ months; Surgery type: Pacemaker; Gallbladder and brain cancer per PT; Additional info: Weakness TECHNIQUE: Imaging protocol: Radiologic exam of the chest. Views: 1 view. COMPARISON: CR XR chest 1V portable [id number] 10/05/2024 11:17 AM FINDINGS: Tubes, catheters and devices: Dual-chamber pacemaker. Lungs: Unremarkable. No consolidation. Pleural spaces: Unremarkable. No pleural effusion. No pneumothorax. Heart/Mediastinum: Unremarkable. No cardiomegaly. Bones/joints: Unremarkable. XR/XR chest 1V portable [id number] IMPRESSION: No acute findings.
[2024-10-26 15:38] VITALS: BP 119/77; PULSE 69; O2SAT 94
[2024-10-26 15:40] LABS: Add Urine Microscopic? YES; Bacteria Urine None Seen /hpf; Hyaline Casts Urine 2.46 /lpf; RBC Urine 0-2 /hpf (0-2); Squamous Epithelial Cell Urine 0-5 /hpf (0-5); WBC Urine 0-5 /hpf (0-5)
[2024-10-26 16:00] VITALS: BP 115/79; PULSE 68; O2SAT 93
[2024-10-26 16:01] LABS: Troponin(5th) Baseline 26 ng/L (0-10)
[2024-10-26 16:30] VITALS: BP 126/82; PULSE 61; O2SAT 93
[2024-10-26 17:00] VITALS: PULSE 61; O2SAT 94
--- NOTE | 2024-10-26 17:15 | PC.NURSE ---
pt ambulated in room without assistance with steady gait without assistance device.
[2024-10-26 17:22] VITALS: BP 123/81; PULSE 63; O2SAT 96
== END 2024-10-26 17:23 | disposition home or self-care (01) ==
PROVIDERS: Emergency Medicine; Emergency Provider Physician Assistant; PCP Family Medicine
DX: R53.1 Weakness (principal); I10 Essential (primary) hypertension; Z95.0 Presence of cardiac pacemaker; E78.5 Hyperlipidemia, unspecified; I48.91 Unspecified atrial fibrillation; F17.200 Nicotine dependence, unspecified, uncomplicated; Z90.49 Acquired absence of other specified parts of digestive tract; Z79.899 Other long term (current) drug therapy; Z79.01 Long term (current) use of anticoagulants; Z79.890 Hormone replacement therapy; Z90.89 Acquired absence of other organs
CPT/HCPCS: 36415; 71045; 80053; 81001; 84484; 85025; 93005; 96360; 99285; J7030

== ENCOUNTER 2024-11-13 07:20 | Outpatient (CLI) | payer MEDICARE, SELFPAY ==
--- NOTE | 2024-11-13 | ECG_ITS ---
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 Interpretive Statements Lung unchanged pre/post procedure; Intraprocedure shortess of breath; Symptoms resoled by discharge PROCEDURE: At the baseline, the EKG revealed possible atrial flutter with a variable block .Features of LVH. Nonspecific IVCD. Diffuse ST-T changes. The baseline heart was 75 bpm with a blood pressue of 136/88 mm of Hg Lexiscan was infused over a period of 20 seconds. A total of 0.4 milligrams of Lexiscan was infused. The stress phase was continued for a total of 5 minutes. Heart rate at the end of the stress phase was 192 bpm with a blood pressure 148/94 mm of Hg. The EKG at the peak infusion revealed no significant changes. Patient was complaining of chest pain and shortness of breath with the Lexiscan infusion Sestamibi was injected 20 seconds after the Lexiscan infusion. Heart rate at the end of the recovery phase was 84 bpm with a blood pressure of 146/81 mm of Hg. the symptoms responded appropriately to the IV aminophylline CONCLUSION: 1. The EKG response to Lexiscan infusion is uninterpretable due to baseline changes 2. Lexiscan induced chest pain and shortness of breath 3. Normal blood pressure and heart rate response 4. Sestamibi/sestamibi perfusion scan pending; see separate report. Electronically Signed On 11-14-2024 22:47:07 CDT by Ida Phipps M.D. [email or web address]
[2024-11-13 08:02] VITALS: BMI 20.7
--- NOTE | 2024-11-13 08:14 | NMCV_ITS ---
NM denis perf SPECT r/s* [id number] Kaity Ferro Age: 69 Gender: F : 1955 Exam Date: 11/13/2024 08:48 Ordering Phys: Dayana Farley NP Technologist: CORI Mno Exam Location: [facility] Indications: cp STRESS TEST Please see separate stress test report in [facility] for full findings IMAGE PROTOCOL Rest/Stress 1 Lexiscan Day Radiopharmaceutical Dose (mCi) Administration Site Administered by Rest: Tc-99m 10.6 IV CORI Avila Sestamibi Stress:Tc-99m 32.8 IV CORI Mon Sestamibaljinder Rest: 13-Nov-2024 60 Discovery 630 Stress: 13-Nov-2024 30 Discovery 630 0.4mg Lexiscan. Supine position only as patient was unable to lay prone. SPECT RESULTS Technical Quality: Good Raw Data Analysis: Normal Image Corrections: No attenuation or motion correction applied Summed Stress Score: 0 Summed Rest Score: 2 Summed Difference Score: 0 PERFUSION FINDINGS Fairly uniform myocardial tracer uptake with no significant Perfusion abnormalities FUNCTIONAL RESULTS (calculated via Gated SPECT) Stress Image LV EF (%): 72 Stress EDV (mL):64 TID: 1.04 Stress ESV (mL):18 FUNCTIONAL FINDINGS: Segmental wall motion analysis revealing no gross wall motion abnormalities IMPRESSIONS 1. Uniform myocardial tracer uptake with no significant Perfusion abnormalities 2. Normal LV ejection fraction of 72% 3. LV wall motion analysis revealing no gross wall motion abnormalities. 4. Normal LV volume Low probability for coronary ischemia, based on the above findings. Compared to the previous study from 11/16/2021, there may not be a significant change Dr Ida Phipps MD FACC (Electronically Signed) Final Date: 13 November 2024 12:57 S
[2024-11-13] MEDS: regadenoson 0.4 Mg/5 ml Syringe IVP (09:25)
[2024-11-13] MEDS: aminophylline 25 mg/mL SDV 20 mL IVP (09:35)
[2024-11-13 09:38] VITALS: BP 146/81; PULSE 83
== END 2024-11-13 07:21 | disposition home or self-care (01) ==
LOC: CDL 07:22
PROVIDERS: PCP Family Medicine; Visit Provider Nurse Practitioner Family
DX: R07.9 Chest pain, unspecified (principal); R93.1 Abnormal findings on diagnostic imaging of heart and coronary circulation
CPT/HCPCS: 36415; 78452; 93017; 96374; 96375; A9500; J0280; J2785

== ENCOUNTER 2024-12-19 20:33 | Outpatient (CLI) | payer MEDICARE, SELFPAY | END 2024-12-19 20:34 | disposition home or self-care (01) | LOC: SLEEP 20:34 | PROVIDERS: PCP Family Medicine; Referring Provider Anesthesiology Pain Medicine; Visit Provider Internal Medicine Pulmonary Disease | DX: G47.33 Obstructive sleep apnea (adult) (pediatric) (principal); I48.91 Unspecified atrial fibrillation | CPT/HCPCS: 95811 ==

== ENCOUNTER 2024-12-24 14:59 | Outpatient (CLI) | payer MEDICARE, SELFPAY ==
--- NOTE | 2024-12-24 15:20 | MM_ITS ---
WS: [id number] BILATERAL 3D TOMOSYNTHESIS DIGITAL SCREENING MAMMOGRAPHY WITH CAD CLINICAL INFORMATION: SCREENING HISTORY: Screening mammogram. No current complaints. COMPARISON: 2023 TECHNIQUE: Bilateral CC and MLO views. FINDINGS: Scattered fibroglandular densities bilaterally. No suspicious focal mass, asymmetry, calcifications, or architectural distortion. No evidence of malignancy. Lucent centered calcification RIGHT breast. Vascular calcification. MM/MM scr tomosynthesis [id number] IMPRESSION: DENSITY: There are scattered areas of fibroglandular density. BI-RADS: 2 - Benign. FOLLOW UP: 1 Year Follow-up Recommend return to annual screening mammography.
== END 2024-12-24 15:00 | disposition home or self-care (01) ==
LOC: RAD 15:01
PROVIDERS: PCP Family Medicine; Visit Provider Family Medicine
DX: Z12.31 Encounter for screening mammogram for malignant neoplasm of breast (principal); R92.323 Mammographic fibroglandular density, bilateral breasts; R92.1 Mammographic calcification found on diagnostic imaging of breast
CPT/HCPCS: 77063; 77067

== ENCOUNTER → 2024-12-26 10:54 | Outpatient (BNVA) | payer MEDICARE, SELFPAY | PROVIDERS: PCP Family Medicine; Visit Provider Internal Medicine Cardiovascular Disease | DX: Z45.018 Encounter for adjustment and management of other part of cardiac pacemaker (principal) | CPT/HCPCS: 93296 ==

== ENCOUNTER 2024-12-26 12:49 | Outpatient (CLI) | payer MEDICARE, SELFPAY ==
--- NOTE | 2024-12-26 12:55 | XR_ITS ---
WS: [id number] Lumbar spine, 7 views including both obliques and lateral views in flexion, extension and neutral position, 12/26/2024 Clinical Data: SPONDYLOSIS OF LUMBOSACRAL REGION Comparison: Lumbar spine, 12/31/2022 Findings: No compression fractures are seen. There is a 0.8 cm anterior subluxation of L5 on S1. There is a dextroscoliosis. The oblique films show no spondylolysis. No disc space narrowing is seen. The transverse processes and SI joints are normal. No instability occurs on flexion or extension. There are numerous right surgical clips. There is a large amount of fecal material in the colon. XR/XR lumbar spine 6V w f/e [id number] Impression: 1. Dextroscoliosis with 0.8 cm anterior subluxation of L5 on S1. 2. No spondylolysis on oblique films. 3. No instability on flexion or extension.
== END 2024-12-26 12:50 | disposition home or self-care (01) ==
PROVIDERS: PCP Family Medicine; Visit Provider Student in an Organized Health Care Education/Training Program
DX: M47.817 Spondylosis without myelopathy or radiculopathy, lumbosacral region (principal); M41.87 Other forms of scoliosis, lumbosacral region
CPT/HCPCS: 72114

== ENCOUNTER → 2024-12-27 13:27 | Outpatient (BNVA) | payer MEDICARE, SELFPAY | PROVIDERS: PCP Family Medicine; Referring Provider Family Medicine; Visit Provider Specialist | DX: R44.0 Auditory hallucinations (principal) | CPT/HCPCS: 95812 ==

== ENCOUNTER 2024-12-31 15:59 | Emergency (ER) | payer MEDICARE, SELFPAY ==
[2024-12-31] VITALS (8 sets, daily range): BP systolic 101–127; BP diastolic 73–94; PULSE 69–103; RESP 16; TEMP 36.4; O2SAT 94–97
--- NOTE | 2024-12-31 16:00 | XRR_ITS ---
PROCEDURE INFORMATION: Exam: XR Chest Exam date and time: 12/31/2024 4:31 PM Age: 69 years old Clinical indication: Pain; Angina pectoris; Additional info: Cp TECHNIQUE: Imaging protocol: Radiologic exam of the chest. Views: 1 view. COMPARISON: CR XR chest 1V portable [id number] 10/26/2024 3:43 PM FINDINGS: Tubes, catheters and devices: Left pectoral pacemaker with leads positioned in the right atrium and right ventricle. Lungs: Unremarkable. No consolidation. Pleural spaces: Unremarkable. No pleural effusion. No pneumothorax. Heart/Mediastinum: Unremarkable. No cardiomegaly. Bones/joints: Unremarkable. XR/XR chest 1V portable [id number] IMPRESSION: No acute thoracic abnormality.
--- OUTSIDE RECORDS SUMMARY | 2024-12-31 16:04 | XMS_ITS | Patient Health Record ---
Author Organization [facility] Address [address] [place] [address] Care Team Providers Care Proof Operator Name Role Phone Mega Martinez MD Primary Care Provider Alverto StantonAnyi Burt Joanne [phone] Results Component Value Reference Range Flag Notes Urine Drug Screen (cup read) - 23048 Reviewed date:12/18/2024 04:22:43 PM Interpretation: Performing Lab: Notes/Report: OPI + OXY + Urine Confirmation Panel (in strument) - 24099 Reviewed date:12/26/2024 05:23:35 PM Interpretation: Performing Lab: Notes/Report: 6-Acetylmorphine 0 <6 ng/mL N This edmund t was developed and its performance characteristics determined by [facility]. It has not been cleared or approved by the U.S. Food and Drug Administration. 7-Aminoclonazepam 0 <60 ng/mL N This te st was developed and its performance characteristics determined by [facility]. It has not been cleared or approved by the U.S. Food and Drug Administration. Alprazolam 0 <60 ng/mL N This test was developed and its performance characteristics determined by [facility]. It has not been cleared or approved by the U.S. Food and Drug Administration. Amphetamine 0 <75 ng/mL N This test was developed and its performance characteristics determined by [facility]. It has not been cleared or approved by the U.S. Food and Drug Administration. aOH-Alprazolam 0 <60 ng/mL N This test was developed and its performance characteristics determined by [facility]. It has not been cleared or approved by the U.S. Food and Drug Administration. Buprenorphine 0.0 <7.5 ng/mL N This test w as developed and its performance characteristics determined by [facility]. It has not been cleared or approved by the U.S. Food and Drug Administration. Norbuprenorphine 0.0 <37.5 ng/mL N This te st was developed and its performance characteristics determined by [facility]. It has not been cleared or approved by the U.S. Food and Drug Administration. Carisoprodol 0 <75 ng/mL N This test wa s developed and its performance characteristics determined by [facility]. It has not been cleared or approved by the U.S. Food and Drug Administration. Codeine 0 <75 ng/mL N This test was developed and its performance characteristics determined by [facility]. It has not been cleared or approved by the U.S. Food and Drug Administration. EDDP 0 <75 ng/mL N This test was developed and its performance characteristics determined by [facility]. It has not been cleared or approved by the U.S. Food and Drug Administration. Fentanyl 0 <6 ng/mL N This test was developed and its performance characteristics determined by [facility]. It has not been cleared or approved by the U.S. Food and Drug Administration. Hydrocodone 1578 <75 ng/mL H This test was developed and its performance characteristics determined by [facility]. It has not been cleared or approved by the U.S. Food and Drug Administration. Hydromorphone 435 <75 ng/mL H This test w as developed and its performance characteristics determined by [facility]. It has not been cleared or approved by the U.S. Food and Drug Administration. Lorazepam 0 <60 ng/mL N This test was developed and its performance characteristics determined by [facility]. It has not been cleared or approved by the U.S. Food and Drug Administration. MDMA 0 <75 ng/mL N This test was developed and its performance characteristics determined by [facility]. It has not been cleared or approved by the U.S. Food and Drug Administration. Meperidine 0.0 <37.5 ng/mL N This test was developed and its performance characteristics determined by [facility]. It has not been cleared or approved by the U.S. Food and Drug Administration. Meprobamate 0 <75 ng/mL N This test was developed and its performance characteristics determined by [facility]. It has not been cleared or approved by the U.S. Food and Drug Administration. Methamphetamine 34 <75 ng/mL N This test was developed and its performance characteristics determined by [facility]. It has not been cleared or approved by the U.S. Food and Drug Administration. Methadone 0 <75 ng/mL N This test was developed and its performance characteristics determined by [facility]. It has not been cleared or approved by the U.S. Food and Drug Administration. Morphine 0 <75 ng/mL N This test was developed and its performance characteristics determined by [facility]. It has not been cleared or approved by the U.S. Food and Drug Administration. Nordiazepam 0 <60 ng/mL N This test was developed and its performance characteristics determined by [facility]. It has not been cleared or approved by the U.S. Food and Drug Administration. Norfentanyl 0 <6 ng/mL N This test was developed and its performance characteristics determined by [facility]. It has not been cleared or approved by the U.S. Food and Drug Administration. Normeperidine 0.0 <37.5 ng/mL N This test was developed and its performance characteristics determined by [facility]. It has not been cleared or approved by the U.S. Food and Drug Administration. O-desmethyltramadol 0 <75 ng/mL N This test was developed and its performance characteristics determined by [facility]. It has not been cleared or approved by the U.S. Food and Drug Administration. Oxazepam 0 <60 ng/mL N This test was developed and its performance characteristics determined by [facility]. It has not been cleared or approved by the U.S. Food and Drug Administration. Oxycodone 0.0 <37.5 ng/mL N This test was developed and its performance characteristics determined by [facility]. It has not been cleared or approved by the U.S. Food and Drug Administration. Oxymorphone 0 <75 ng/mL N This test was developed and its performance characteristics determined by [facility]. It has not been cleared or approved by the U.S. Food and Drug Administration. Phencyclidine 0.0 <7.5 ng/mL N This test w as developed and its performance characteristics determined by [facility]. It has not been cleared or approved by the U.S. Food and Drug Administration. Tapentadol 0.0 <37.5 ng/mL N This test was developed and its performance characteristics determined by [facility]. It has not been cleared or approved by the U.S. Food and Drug Administration. Temazepam 23 <60 ng/mL N This test was developed and its performance characteristics determined by [facility]. It has not been cleared or approved by the U.S. Food and Drug Administration. Tramadol 0 <75 ng/mL N This test was developed and its performance characteristics determined by [facility]. It has not been cleared or approved by the U.S. Food and Drug Administration. Norhydrocodone 281 <75 ng/mL H This test was developed and its performance characteristics determined by [facility]. It has not been cleared or approved by the U.S. Food and Drug Administration. Noroxycodone 0 <38 ng/mL N This test wa s developed and its performance characteristics determined by [facility]. It has not been cleared or approved by the U.S. Food and Drug Administration. Pregabalin 0 <225 ng/mL N This test was developed and its performance characteristics determined by [facility]. It has not been cleared or approved by the U.S. Food and Drug Administration. Gabapentin 1 <225 ng/mL N This test was developed and its performance characteristics determined by [facility]. It has not been cleared or approved by the U.S. Food and Drug Administration. Benzoylecgonine 0.0 <37.5 ng/mL N This edmund t was developed and its performance characteristics determined by [facility]. It has not been cleared or approved by the U.S. Food and Drug Administration. 4-Hydroxy Xylazine 0 <25 ng/mL N This t est was developed and its performance characteristics determined by [facility]. It has not been cleared or approved by the U.S. Food and Drug Administration. Tox Results Reviewed date:12/28/2024 04:33:19 PM Interpretation: Performing Lab: Notes/Report: Reason For Referral Reason Chronic primary low back pain Diagnosis 1 Chronic pain syndrom e (G89.4) Referring Provider First Name Mega Referring Provider Last Name Juan Referring Provider Speciality Family [facility] Referred Organization [facility] Referred Provider Alice Bryant Referred Address [address] [place] [address],[place],[id number], Referred Provider Specialty Pain Medicin e General Notes Briana Ramirez 08/2023 03:51:37 PM >Patient has [employer] and it is not accepted Referral Priority Routine Reason low back pain Diagnosis 1 Chronic pain syndrom e (G89.4) Referring Provider First Name Mega Referring Provider Last Name Martinez Referring Provider Speciality Family Med icine Referred Organization [facility] Referred Provider Alice Bryant Referred Address [address] [address],[place],[address], Referred Provider Specialty Pain Medicin e General Notes Cindy Zamudio 0 10/24/2024 01:50:05 PM >ATC. Number not accepting messages., Ana Lilia Corcoran Margareth 11/07/2024 02:29:26 PM >returned npp, scheduled pt Referral Priority Routine Reason PT for low back pain Diagnosis 1 Low back pain (M54.5 0) Referral Organization [facility] Referring Provider First Name Anyi Referring Provider Last Name Vicki Marcus Referring Provider Speciality Pain Medic ine Referred Provider [facility] Referred Provider Specialty Preventive M edicine Referral Priority Routine Medications Medication SIG (Take, Route, Frequency, Duration) Notes Start Date End Date Status HYDROcodone-Acetaminop hen 7.5-325 MG Tablet 1 tablet as needed Orally every 4-6 hrs; Duration: 28 days As needed not to exceed 2 per day fill 01/29/25 12/19/2024 02/26/2025 Active HYDROcodone-Acetaminop hen 7.5-325 MG Tablet 1 tablet as needed Orally every 4-6 hrs; Duration: 28 days As needed not to exceed 2 per day fill 01/01/25 12/19/2024 01/29/2025 Active Problems Problem Type SNOMED Code ICD Code Onset Dates Problem Status W/U Status Risk Notes Problem Chronic pain syndrome (435802452) Chronic pain syndrome (G89.4) Active confirmed Problem Paroxysmal atrial fibrillation (144535569) Paroxysmal atrial fibrillation (I48.0) Active confirmed Problem Lumbosacral spondylosis without myelopathy (54336947) Spondylosis of lumbosacral region without myelopathy or radiculopathy (M47.817) Active confirmed Problem Degenerative disorder of macula (087031761) Macular degeneration, unspecified laterality, unspecified type (H35.30) Active confirmed Problem History of myocardial infarction (563924425) History of myocardial infarction (I25.2) Active confirmed Problem Myalgia (55720873) Myalgia (M79.10) Active conf irmed Problem Lumbosacral radiculopathy (0535810) Lumbosacral radiculopathy (M54.17) Active confirmed Problem High risk drug monitoring status (784821758) Chronic prescription opiate use (Z79.891) Active confirmed Problem Long-term current use of anticoagulant (722768270) Anticoagulated (Z79.01) Active confirmed Problem Nephrosclerosis (23367049) 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) Active confirmed Encounters Encounter Location Date Provider Diagnosis [facility] [place] [address] [place] [id number] 12/18/2024 Anyi rankin Chronic pain syndrome G89.4 ; Lumbosacral spondylosis with radiculopathy M47.27 ; Myalgia M79.10 ; Atrophic kidney N26.1 ; Paroxysmal atrial fibrillation I48.0 ; Macular degeneration, unspecified laterality, unspecified type H35.30 ; History of myocardial infarction I25.2 ; Chronic prescription opiate use Z79.891 ; Anticoagulated Z79.01 ; Spondylosis of lumbosacral region without myelopathy or radiculopathy M47.817 and Lumbosacral radiculopathy M54.17 Assessments Encounter Date Diagnosis (ICD Code) Assessment Notes Treatment Notes Treatment Clinical Notes Section Notes 12/18/2024 Chronic pain syndrome (ICD-10 - G89.4) Ms. Abbott is a pleasant patient with history and physical exam consistent of lumbosacral spondylosis. We'll obtain lumbosacral X-rays to evaluate this further as well as to guide interventional therapies. I'll continue her Hydrocodone since she reports significant relief of her symptoms. She denies any side effects except for constipation. We talked about bowel management with her. PDMP reviewed with no untoward events. She's been stable on this regimen for the greater part of the year, so we'll continue this for the next two months. We'll also send her to PT for core stabilization exercises. She is on anticoagulation, so I need to be mindful in the future for any axial spine procedures. We'll obtain a UDS confirmation at this visit and see her back in two months. a 12/18/2024 Lumbosacral spondylosis with radiculopathy (ICD-10 - M47.27) a 12/18/2024 Myalgia (ICD-10 - M79.10) a 12/18/2024 Atrophic kidney (ICD-10 - N26.1) a 12/18/2024 Paroxysmal atrial fibrillation (ICD-10 - I48.0) a 12/18/2024 Macular degeneration, unspecified laterality, unspecified type (ICD-10 - H35.30) a 12/18/2024 History of myocardial infarction (ICD-10 - I25.2) a 12/18/2024 Chronic prescription opiate use (ICD-10 - Z79.891) a 12/18/2024 Anticoagulated (ICD-10 - Z79.01) a 12/18/2024 Spondylosis of lumbosacral region without myelopathy or radiculopathy (ICD-10 - M47.817) a 12/18/2024 Lumbosacral radiculopathy (ICD-10 - M54.17) a 12/18/2024 Other Rolando, Elise Bender, am scribing for Dr. Burt. I, Dr. Burt, personally performed the services described in this documentation, as scribed by Elise Bender, and it is both accurate and complete. RECOMMEND URINE TESTING TODAY Urine drug screening will be performed today to monitor compliance with opioid therapy or to serve as a baseline screen for a patient who may be a candidate for opioid therapy in the future, pending UDS results. We will monitor with in-office testing (rapid testing) today and review the results prior to dispensing prescription. All positive results will be sent for quantitative analysis to ensure accuracy and quantify amounts. Any expected positive results that return negative will also be sent for quantitative analysis. Any questionable read or any medication we cannot test for in the office confidently will be sent for quantitative analysis, as well. Patient has been made aware of this policy and agrees to abide by our urine testing policy. a Plan Of Treatment Pending Test Test Name Order Date Lumbosacral Spine Comp w/ Bending-[id number] 12/18/2024 Next Appt Details Provider Name:Anyi Garcia Marge, 02/26/2025 10:40:00 AM, [address] [place], [address], Insurance Providers Payer Name Payer Address Payer Phone Subscriber Number Group Number Insured Name Patient Relationship to Insured Coverage Start Date Coverage End Date [employer] [place] [employer] Replacement [address] [place] [phone] [id number] Kaity Terry Self - patient is the insured Out of Network [facility] Medicare Replacement [address] [address] [place] [phone] [id number] Kaity Terry Self - patient is the insured
--- OUTSIDE RECORDS SUMMARY | 2024-12-31 16:04 | XMS_ITS | Data Portability ---
Author Organization [facility] L[facility]L.CKarissa, [facility] Address [address] [place] [address] Care Team Providers Care Lead Handler Name Role Phone JEANNE MARTINEZ Primary Care Provider Assessment Encounter Date Assessment Date Assessment LastModified by Organization Details LastModified Time 10/11/2024 10/11/2024 d/c potassium she will see the eye november 02. gi has not rescheduled her for her bile duct. dodie will call. [email or web address] Not available 10/11/2024 12:58:01 11/06/2024 11/06/2024 she has a stress test on the . [email or web address] Not available 11/06/2024 14:35:07 11/12/2024 11/12/2024 feared pyloric stricture as the cause of her GI sx's. i cannot fix that. I need her to see Gi. we will call the office and see what records they still feel they need to help Tez and fwd everything we can. also concerning is that she has a hx of cancer of the gallbladder. see mrcp results. significant water weight decrease to er if light headed dizzy weak or low bp or pain becomes severe she has not started potassium yet. Not available 11/12/2024 13:51:09 Plan of Treatment Reminders Order Date Submit Date Provider Last Modified By Organization Details Last Modified Time Details Appointments RECHECK 15 2024 02:00P M Na Hernández MD Not available Not available Not available OFFICE VISIT 15 2024 01:00P M Jeanne Martinez MD Not available Not available Not available Lab CBC 2024 025 [facility], [address], [place], [address], 11/07/2024 16:19:32 unlisted lab - periphera l blood smear review 2024 025 [facility], [address] [facility] , [address], [place], [address], 11/08/2024 16:34:34 thyrotrop in, QN, serum or plasma 2024 025 [facility], [address], [address], [place], [address], 11/07/2024 17:44:22 CMP, serum or plasma 2024 025 [facility], [address], [place], [address], 11/07/2024 16:40:37 pap, LB 2024 025 [facility], [address] [place] [address] [address], [address], [place], [address], 11/14/2024 08:28:28 unlisted lab - sureswab( R) advanced vaginitis plus, tma 2024 025 [facility], [address] [place] [address] [address], [address], [place], [address], 11/07/2024 11:55:35 urinalysi s, complete 2024 025 [facility], [address], [address], [place], [address], 11/06/2024 15:16:46 culture, urine 2024 025 Office Center [facility], [address] [facility] [address], [address] [place], [address], 11/07/2024 22:17:03 BMP, serum or plasma 2024 025 [facility], [address] [facility], [address], [place], [address], 10/11/2024 15:12:[address] referral - [facility] ferrell [facility] [address] [facility], [address] [place] [address], [address], 12/31/2024 16:43:35 pain managemen t referral 2024 025 [place] [address] [address] , [address] [place], [address], 11/13/2024 15:08:58 Procedures electroen cephalogr am (EEG); including recording awake and asleep (PROC) [address] [facility], [address] [place] [address], [address], 12/21/2024 12:53:19 Surgeries None recorded. Imaging MRI, brain, w/wo contrast - with pacer monitorin g 2024 025 [facility] (Schedluing & Pre Registration) , [address] [place], [address], 12/25/2024 14:03:40 XR, knee, 3 view [address] ([facility]), [address] [place], [address], 11/12/2024 11:51:49 Medication Orders ondansetr on HCl 8 mg tablet 2024 025 [id number], [address], [place], [address], 11/12/2024 13:43:32 furosemid e 20 mg tablet 2024 025 [id number], [address], [place], [address], 10/11/2024 12:56:35 Xopenex 0.63 mg/3 mL solution for nebulizat ion 2024 025 [id number], [address], [place], [address], 10/11/2024 12:52:47 Tiadylt ER 360 mg capsule,e xtended release 2024 025 [id number], [address], [place], [address], 10/11/2024 12:45:18 spironola ctone 25 mg tablet 2024 025 [id number], [address], [place], [address], 10/11/2024 12:56:34 Patient TargetsNo targets recorded. Patient InstructionsNo instructions recorded. Reason for Referral Pain Management Referral for Low back pain Referring Physician: Jeanne Martinez, Family Medicine, Encounter Date: 10/11/2024 Neurologist Referral for Laura or of pituitary and suprasellar region dr [facility] Referring Physician: Jeanne Martinez, Family Medicine, Encounter Date: 12/12/2024 Results Created Date Observation Date Name Description Value Unit Range Abnormal Flag Note LastModifiedBy Organization Detail LastModifiedTime 09/27/19 25 09/26/2024 CBC WBC 6.1 x10 4.0-10 .5 Not Available [facility] [address], [place], [address], 09/26/2024 13:53:10 09/27/19 25 09/26/2024 CBC RBC 5.66 x10 3.50-5 .50 high Not Available [facility] [address] L[address]pez [facility] 1, [place], [address], 09/26/2024 13:53:10 09/27/19 25 09/26/2024 CBC HGB 17.0 g/dL 12.0-1 6.0 high Not Available [facility] [address] L[address]pez [facility] 1, [place], [address], 09/26/2024 13:53:10 09/27/19 25 09/26/2024 CBC HCT 51.3 % 37.0-4 7.0 high Not Available [facility] [address]pez [facility] 1, [place], [address], 09/26/2024 13:53:10 09/27/19 25 09/26/2024 CBC MCV 90.7 fL 80.0-9 9.9 Not Available [facility] [address] [facility] L[facility]pez [facility] 1, [place], [address], 09/26/2024 13:53:10 09/27/19 25 09/26/2024 CBC MCH 30.0 pg 27.0-3 2.0 Not Available [facility] [address] L[address]pez [facility] 1, [place], [address], 09/26/2024 13:53:10 09/27/19 25 09/26/2024 CBC MCHC 33.1 g/dL 32.0-3 6.0 Not Available [facility] [address] [facility] L[facility] 1, [place], [address], 09/26/2024 13:53:10 09/27/19 25 09/26/2024 CBC RDW 15.9 % 11.5-1 4.5 high Not Available [facility] [address] [address], [place], [address], 09/26/2024 13:53:10 09/27/19 25 09/26/2024 CBC plt 191.7 x10 140.0- 451.0 Not Available [facility] [address] [address], [place], [address], 09/26/2024 13:53:10 09/27/19 25 09/26/2024 CBC lymphocytes % 28.5 % 20.0-5 0.0 Not Available [facility] [address] [address], [place], [address], 09/26/2024 13:53:10 09/27/19 25 09/26/2024 CBC granulcytes % 58.3 % 30.0-7 0.0 Not Available [facility] [address] [address], [place], [address], 09/26/2024 13:53:10 09/27/19 25 09/26/2024 CBC monocytes % 10.9 % 2.0-16 .0 Not Available [facility] [address] [address], [place], [address], 09/26/2024 13:53:10 09/27/19 25 09/26/2024 CBC granulcytes# 3.6 x10 Not Michelle ilable [facility] [address] [address], [place], [address], 09/26/2024 13:53:10 09/27/19 25 09/26/2024 CBC lymphocytes # 1.7 x10 Not Available [facility] [address] [address], [place], [address], 09/26/2024 13:53:10 09/27/19 25 09/26/2024 CBC monocytes # 0.7 x10 Not Avai lable [facility] [address] [facility] [address], [place], [address], 09/26/2024 13:53:10 09/27/19 25 09/26/2024 CMP (FEMA LE) glucose 111.0 mg/dL 60.0-9 9.0 high Not Available [facility] [address] [facility] [address], [place], [address], 09/26/2024 14:26:19 09/27/19 25 09/26/2024 CMP (FEMA LE) BUN (blood urea nitrogen) 18.0 mg/dL 10.0-2 6.0 Not Available [facility] [address], [place], [address], 09/26/2024 14:26:19 09/27/19 25 09/26/2024 CMP (FEMA LE) creatinine (serum) 1.4 mg/dL 0.4-1. 5 Not Available [facility] [address], [place], [address], 09/26/2024 14:26:19 09/27/19 25 09/26/2024 CMP (FEMA LE) BUN/creatini ne ratio 12.86 ratio Not Available [facility] [address] [address], [place], [address], 09/26/2024 14:26:19 09/27/19 25 09/26/2024 CMP (FEMA LE) eGFR calculated 39.[address] [facility] [address] [address], [place], [address], 09/26/2024 14:26:19 09/27/19 25 09/26/2024 CMP (FEMA LE) total protein 7.3 g/dL 6.0-8. 5 Not Available [facility] [address] [address], [place], [address], 09/26/2024 14:26:19 09/27/19 25 09/26/2024 CMP (FEMA LE) total bilirubin 0.8 mg/dL 0.2-1. 3 Not Available [facility] [address] [facility] 1, [place], [address], 09/26/2024 14:26:19 09/27/19 25 09/26/2024 CMP (FEMA LE) albumin 4.4 g/dL 3.5-5. 5 Not Available [facility] [address] [facility], [place], [address], 09/26/2024 14:26:19 09/27/19 25 09/26/2024 CMP (FEMA LE) globulin 2.9 calc Not Available [facility] [address] [facility] [address], [place], [address], 09/26/2024 14:26:19 09/27/19 25 09/26/2024 CMP (FEMA LE) AST (SGOT) 25.0 U/L 0.0-46 .0 Not Available [facility] [address] [facility], [place], [address], 09/26/2024 14:26:19 09/27/19 25 09/26/2024 CMP (FEMA LE) altv (SGPT) 19.0 U/L 13.0-6 9.0 normal Not Available [facility] [address] [facility], [place], [address], 09/26/2024 14:26:19 09/27/19 25 09/26/2024 CMP (FEMA LE) A/G ratio 1.5 ratio Not Available [facility] [address] [facility] [address], [place], [address], 09/26/2024 14:26:19 09/27/19 25 09/26/2024 CMP (FEMA LE) ALP phos 67.0 U/L 30.0-1 40.0 normal Not Available [facility] [address] [facility] [address], [place], [address], 09/26/2024 14:26:19 09/27/19 25 09/26/2024 CMP (FEMA LE) calcium 9.5 mg/dL 8.4-10 .5 Not Available [facility] [address] [facility] [address], [place], [address], 09/26/2024 14:26:19 09/27/19 25 09/26/2024 CMP (FEMA LE) sodium 142.0 mmol/ L 136.0- 145.0 Not Available [facility] [address] [facility] [address], [place], [address], 09/26/2024 14:26:19 09/27/19 25 09/26/2024 CMP (FEMA LE) potassium 3.0 mmol/ L 3.5-5. 1 low Not Available [facility] [address] [facility] [address], [place], [address], 09/26/2024 14:26:19 09/27/19 25 09/26/2024 CMP (FEMA LE) chloride 105.0 mmol/ L 98.0-1 10.0 normal Not Available [facility] [address], [place], [address], 09/26/2024 14:26:19 09/27/19 25 09/26/2024 CMP (FEMA LE) C02 27.0 mmol/ L 22.0-3 1.0 Not Available [facility] [address], [place], [address], 09/26/2024 14:26:19 09/27/19 25 09/26/2024 CMP (FEMA LE) anion gap 10.0 calc Not Available [facility] [address] [facility] [address], [place], [address], 09/26/2024 14:26:19 09/27/19 25 09/26/2024 CMP (FEMA LE) osmolality 295.6 calc Not Available [facility] [address] [facility] [address], [place], [address], 09/26/2024 14:26:19 09/27/19 25 09/27/2024 PERIP HERAL BLOOD SMEAR REVIE W peripheral blood smear review Revie w of perip heral smear confi kristina autom ated resul ts. Revie w of the perip heral smear revea ls adequ ate numbe rs of plate lets. RBC morph ology appea rs laurie l. Not Available [facility] [address] [place], [address], 09/27/2024 15:19:45 09/27/19 25 09/28/2024 MAGNE SIUM magnesium 2.0 mg/dL 1.5-2. 5 normal Not Available [facility] [address] [place], [address], 09/28/2024 07:16:56 10/12/19 25 10/11/2024 BMP (FEMA LE) glucose 84.0 mg/dL 60.0-9 9.0 Not Available [facility] [address] [facility] [address], [place], [address], 10/11/2024 15:12:55 10/12/19 25 10/11/2024 BMP (FEMA LE) BUN (blood urea nitrogen) 16.0 mg/dL 10.0-2 6.0 Not Available [facility] [address] [facility] [address], [place], [address], 10/11/2024 15:12:55 10/12/19 25 10/11/2024 BMP (FEMA LE) creatinine (serum) 1.5 mg/dL 0.4-1. 5 Not Available [facility] [address] [facility], [place], [address], 10/11/2024 15:12:55 10/12/19 25 10/11/2024 BMP (FEMA LE) BUN/creatini ne ratio 10.67 ratio Not Available [facility] [address] [facility] [address], [place], [address], 10/11/2024 15:12:55 10/12/19 25 10/11/2024 BMP (FEMA LE) calcium 9.8 mg/dL 8.4-10 .5 Not Available [facility] [address] [facility] [address], [place], [address], 10/11/2024 15:12:55 10/12/19 25 10/11/2024 BMP (FEMA LE) sodium 138.0 mmol/ L 136.0- 145.0 Not Available [facility] [address] [address], [place], [address], 10/11/2024 15:12:55 10/12/19 25 10/11/2024 BMP (FEMA LE) potassium 6.0 mmol/ L 3.5-5. 1 high Not Available [facility] [address] [address], [place], [address], 10/11/2024 15:12:55 10/12/19 25 10/11/2024 BMP (FEMA LE) chloride 104.0 mmol/ L 98.0-1 10.0 normal Not Available [facility] [address] [facility] [address], [place], [address], 10/11/2024 15:12:55 10/12/19 25 10/11/2024 BMP (FEMA LE) C02 23.0 mmol/ L 22.0-3 1.0 Not Available [facility] [address] [facility] [address], [place], [address], 10/11/2024 15:12:55 10/12/19 25 10/11/2024 BMP (FEMA LE) anion gap 11.0 calc Not Available [facility] [address] [facility] [address], [place], [address], 10/11/2024 15:12:55 10/16/19 25 10/15/2024 potas sium, serum or plasm a potassium 4.4 mmol/ L 3.5-5. 1 normal Not Available [facility] ([facility] [address] [place], [address], 10/12/2024 12:32:37 11/07/19 25 11/06/2024 URINA LYSIS WITH MICRO color YELLOW Not Available [facility] [address], [address], 11/06/2024 15:16:46 11/07/19 25 11/06/2024 URINA LYSIS WITH MICRO clarity CLEAR Not Available [facility] [address] [facility] [address], [place], [address], 11/06/2024 15:16:46 11/07/19 25 11/06/2024 URINA LYSIS WITH MICRO glu NEGATI VE Not Available [facility] [address], [address], 11/06/2024 15:16:46 11/07/19 25 11/06/2024 URINA LYSIS WITH MICRO bili NEGATI VE Not Available [facility] [address] [facility] [address], [place], [address], 11/06/2024 15:16:46 11/07/19 25 11/06/2024 URINA LYSIS WITH MICRO ket NEGATI VE Not Available [facility] [address] [address], [place], [address], 11/06/2024 15:16:46 11/07/19 25 11/06/2024 URINA LYSIS WITH MICRO S.g 1.010 1.005- 1.025 Not Available [facility] [address] [facility], [place], [address], 11/06/2024 15:16:46 11/07/19 25 11/06/2024 URINA LYSIS WITH MICRO pH 5.5 5.0-7. 0 Not Available [facility] [address] [facility] [address], [place], [address], 11/06/2024 15:16:46 11/07/19 25 11/06/2024 URINA LYSIS WITH MICRO pro NEGATI VE Not Available [facility] [address] [facility] [address], [place], [address], 11/06/2024 15:16:46 11/07/19 25 11/06/2024 URINA LYSIS WITH MICRO uro 0.2 E.U./D L Not Available [facility] [address] [facility] [address], [place], [address], 11/06/2024 15:16:46 11/07/19 25 11/06/2024 URINA LYSIS WITH MICRO nit NEGATI VE Not Available [facility] [address] [facility] [address], [place], [address], 11/06/2024 15:16:46 11/07/19 25 11/06/2024 URINA LYSIS WITH MICRO blo NEGATI VE Not Available [facility] [address] [facility] [address], [place], [address], 11/06/2024 15:16:46 11/07/19 25 11/06/2024 URINA LYSIS WITH MICRO lazaro NEGATI VE Not Available [facility] [address] [facility] [address], [place], [address], 11/06/2024 15:16:46 11/07/19 25 11/06/2024 URINA LYSIS WITH MICRO WBC 2-3 Not Available [facility] [address] [facility] [address], [place], [address], 11/06/2024 15:16:46 11/07/19 25 11/06/2024 URINA LYSIS WITH MICRO RBC 0-1 Not Available [facility] [address] [facility] [address], [place], [address], 11/06/2024 15:16:46 11/07/19 25 11/06/2024 URINA LYSIS WITH MICRO epi cells 15-18 abnormal Not Available [facility] [address] [facility] [address], [place], [address], 11/06/2024 15:16:46 11/07/19 25 11/06/2024 URINA LYSIS WITH MICRO bacteria TRACE OF MIXED SEBASTIAN abnormal Not Available [facility] [address] [facility] [address], [place], [address], 11/06/2024 15:16:46 11/07/19 25 11/06/2024 URINA LYSIS WITH MICRO other NG Not Available [facility] [address] [facility] [address], [place], [address], 11/06/2024 15:16:46 11/07/19 25 11/07/2024 SURES WAB(R ) ADVAN SUSHANT VAGIN ITIS PLUS, TMA sureswab(R) adv bacterial vaginosis (bv), tma NEGATI VE negati ve normal Not Available [facility] [address] [place], [address], 11/07/2024 11:55:35 11/07/19 25 11/07/2024 SURES WAB(R ) ADVAN SUSHANT VAGIN ITIS PLUS, TMA emir species NOT DETECT ED not detect ed normal Not Available [address], [address], 11/07/2024 11:55:35 11/07/19 25 11/07/2024 SURES WAB(R ) ADVAN SUSHANT VAGIN ITIS PLUS, TMA emir glabrata NOT DETECT ED not detect ed normal Radha da speci es C. albic ans, C. tropi calis , C. parap nikolas is, and/o r C. dubli niens is can be detec mandeep, but not diffe renti ated, in the Radha da spp. resul t. Not Available [address], [address], 11/07/2024 11:55:35 11/07/19 25 11/07/2024 SURES WAB(R ) ADVAN SUSHANT VAGIN ITIS PLUS, TMA trichomonas vaginalis (TV), tma NOT DETECT ED not detect ed normal Not Available [address], [address], 11/07/2024 11:55:35 11/07/19 25 11/07/2024 SURES WAB(R ) ADVAN SUSHANT VAGIN ITIS PLUS, TMA chlamydia trachomatis RNA, tma, urogenital NOT DETECT ED not detect ed normal Not Available [address], [address], 11/07/2024 11:55:35 11/07/19 25 11/07/2024 SURES WAB(R ) ADVAN SUSHANT VAGIN ITIS PLUS, TMA neisseria gonorrhoeae RNA, tma, urogenital NOT DETECT ED not detect ed normal For addit ional lily dietrich refer to https ://ed ucati on.[employer] lourdes [employer]. Optimizely/f aq/FA Q154 (This link is being provi ded for erica rosas/ louis brown ses only. ) Not Available [address] [place], [address], 11/07/2024 11:55:35 11/07/19 25 11/07/2024 CULTU RE, URINE , ROUTI NE culture, urine, routine SEE NOTE CULTU RE, URINE , ROUTI NE Micro Numbe r: [id number] Test Statu s: Final Speci men Sourc e: Urine Speci men Quali ty: Adequ ate Resul t: Less than 10,00 0 CFU/m L of singl e Gram posit ivelisse organ ism isola mandeep. No furth er testi ng will be perfo rmed. If clini nadir indic ated, recol lecti on using a metho d to minim ize conta minat ion, with promp t trans aureliano to Urine Cultu re Trans port Tube, is recom afua d. Not Available [facility] [address] [place], [address], 11/07/2024 22:17:03 11/08/19 25 11/07/2024 CBC WBC 7.8 x10 4.0-10 .5 Not Available [facility] [address] [address], [place], [address], 11/07/2024 16:19:31 11/08/19 25 11/07/2024 CBC RBC 5.70 x10 3.50-5 .50 high Not Available [facility] [address] [address], [place], [address], 11/07/2024 16:19:31 11/08/19 25 11/07/2024 CBC HGB 17.8 g/dL 12.0-1 6.0 high Not Available [facility] [address] [facility] [address], [place], [address], 11/07/2024 16:19:31 11/08/19 25 11/07/2024 CBC HCT 52.2 % 37.0-4 7.0 high Not Available [facility] [address] [address], [place], [address], 11/07/2024 16:19:31 11/08/19 25 11/07/2024 CBC MCV 91.6 fL 80.0-9 9.9 Not Available [facility] [address] L[address]pez [facility] 1, [place], [address], 11/07/2024 16:19:31 11/08/1911/07/2024 CBC MCH 31.1 pg 27.0-3 2.0 Not Available [facility] [address] [facility] 1, [place], [address], 11/07/2024 16:19:31 11/08/1911/07/2024 CBC MCHC 34.0 g/dL 32.0-3 6.0 Not Available [facility] [address] [facility] [facility] 1, [place], [address], 11/07/2024 16:19:31 11/08/19 25 11/07/2024 CBC RDW 14.9 % 11.5-1 4.5 high Not Available [facility] [address] [facility] 1, [place], [address], 11/07/2024 16:19:31 11/08/1911/07/2024 CBC plt 201.7 x10 140.0- 451.0 Not Available [facility] [address] [facility] 1, [place], [address], 11/07/2024 16:19:31 11/08/1911/07/2024 CBC lymphocytes % 28.0 % 20.0-5 0.0 Not Available [facility] [address] [facility] 1, [place], [address], 11/07/2024 16:19:31 11/08/19 25 11/07/2024 CBC granulcytes % 59.4 % 30.0-7 0.0 Not Available [facility] [address] [facility] [address] 1, [place], [address], 11/07/2024 16:19:31 11/08/19 25 11/07/2024 CBC monocytes % 11.6 % 2.0-16 .0 Not Available [facility] [address] [facility] 1, [place], [address], 11/07/2024 16:19:31 11/08/19 25 11/07/2024 CBC granulcytes# 4.6 x10 Not Michelle ilable [facility] [address] [facility], [place], [address], 11/07/2024 16:19:31 11/08/19 25 11/07/2024 CBC lymphocytes # 2.2 x10 Not Available [facility] [address] [address], [place], [address], 11/07/2024 16:19:31 11/08/19 25 11/07/2024 CBC monocytes # 0.9 x10 Not Avai lable [facility] [address] [facility] [place], [address], 11/07/2024 16:19:31 11/08/19 25 11/07/2024 CMP (FEMA LE) glucose 107.0 mg/dL 60.0-9 9.0 high Not Available [facility] [address] [facility], [place], [address], 11/07/2024 16:40:37 11/08/19 25 11/07/2024 CMP (FEMA LE) BUN (blood urea nitrogen) 55.0 mg/dL 10.0-2 6.0 high Not Available [facility] [address] [facility], [place], [address], 11/07/2024 16:40:37 11/08/19 25 11/07/2024 CMP (FEMA LE) creatinine (serum) 2.9 mg/dL 0.4-1. 5 high Not Available [facility] [address] [facility] [address], [place], [address], 11/07/2024 16:40:37 11/08/19 25 11/07/2024 CMP (FEMA LE) BUN/creatini ne ratio 18.97 ratio Not Available [facility] [address] [address], [place], [address], 11/07/2024 16:40:37 11/08/19 25 11/07/2024 CMP (FEMA LE) eGFR calculated 17.1 Not Available [facility] [address] [facility] [address], [place], [address], 11/07/2024 16:40:37 11/08/19 25 11/07/2024 CMP (FEMA LE) total protein 8.1 g/dL 6.0-8. 5 Not Available [facility] [address] [facility] [address], [place], [address], 11/07/2024 16:40:37 11/08/19 25 11/07/2024 CMP (FEMA LE) total bilirubin 1.2 mg/dL 0.2-1. 3 Not Available [facility] [address] [facility] [address], [place], [address], 11/07/2024 16:40:37 11/08/19 25 11/07/2024 CMP (FEMA LE) albumin 4.9 g/dL 3.5-5. 5 Not Available [facility] [address] [facility] [address], [place], [address], 11/07/2024 16:40:37 11/08/19 25 11/07/2024 CMP (FEMA LE) globulin 3.2 calc Not Available [facility] [address] [facility], [place], [address], 11/07/2024 16:40:37 11/08/19 25 11/07/2024 CMP (FEMA LE) AST (SGOT) 31.0 U/L 0.0-46 .0 Not Available [facility] [address] [facility], [place], [address], 11/07/2024 16:40:37 11/08/19 25 11/07/2024 CMP (FEMA LE) altv (SGPT) 21.0 U/L 13.0-6 9.0 normal Not Available [facility] [address] [facility], [place], [address], 11/07/2024 16:40:37 11/08/19 25 11/07/2024 CMP (FEMA LE) A/G ratio 1.5 ratio Not Available [facility] [address] [facility], [place], [address], 11/07/2024 16:40:37 11/08/19 25 11/07/2024 CMP (FEMA LE) ALP phos 73.0 U/L 30.0-1 40.0 normal Not Available [facility] [address] [facility] [address], [place], [address], 11/07/2024 16:40:37 11/08/19 25 11/07/2024 CMP (FEMA LE) calcium 10.3 mg/dL 8.4-10 .5 Not Available [facility] [address] [facility] [address], [place], [address], 11/07/2024 16:40:37 11/08/19 25 11/07/2024 CMP (FEMA LE) sodium 136.0 mmol/ L 136.0- 145.0 Not Available [facility] [address] [facility] [address], [place], [address], 11/07/2024 16:40:37 11/08/19 25 11/07/2024 CMP (FEMA LE) potassium 3.3 mmol/ L 3.5-5. 1 low Not Available [facility] [address] [facility] [address], [place], [address], 11/07/2024 16:40:37 11/08/19 25 11/07/2024 CMP (FEMA LE) chloride 99.0 mmol/ L 98.0-1 10.0 normal Not Available [facility] [address] [facility] [address], [place], [address], 11/07/2024 16:40:37 11/08/19 25 11/07/2024 CMP (FEMA LE) C02 26.0 mmol/ L 22.0-3 1.0 Not Available [facility] [address] [facility] [address], [place], [address], 11/07/2024 16:40:37 11/08/19 25 11/07/2024 CMP (FEMA LE) anion gap 11.0 calc Not Available [facility] [address] [facility] [address], [place], [address], 11/07/2024 16:40:37 11/08/19 25 11/07/2024 CMP (FEMA LE) osmolality 295.7 calc Not Available [facility] [address] [facility] [address], [place], [address], 11/07/2024 16:40:37 11/08/19 25 11/07/2024 TSH TSH 1.47 uIU/m L 0.49-3 .82 Not Available [facility] [address] [facility] [address], [place], [address], 11/07/2024 17:44:22 11/08/19 25 11/08/2024 PERIP HERAL BLOOD SMEAR REVIE W peripheral blood smear review Ovalo cytes 1 + Crena mandeep red blood cells 1 + Revie w of the perip heral smear revea ls adequ ate numbe rs of plate lets. Few plate let clump s prese nt. Revie w of perip heral smear confi kristina autom ated resul ts. Not Available [facility] [address], [place], [address], 11/08/2024 16:34:34 11/13/19 25 11/12/2024 BMP (FEMA LE) glucose 101.0 mg/dL 60.0-9 9.0 high Not Available [facility] [address] [facility] [address], [place], [address], 11/12/2024 13:12:43 11/13/19 25 11/12/2024 BMP (FEMA LE) BUN (blood urea nitrogen) 44.0 mg/dL 10.0-2 6.0 high Not Available [facility] [address] [facility] [address], [place], [address], 11/12/2024 13:12:43 11/13/19 25 11/12/2024 BMP (FEMA LE) creatinine (serum) 2.2 mg/dL 0.4-1. 5 high Not Available [facility] [address] [facility] [address], [place], [address], 11/12/2024 13:12:43 11/13/19 25 11/12/2024 BMP (FEMA LE) BUN/creatini ne ratio 20.00 ratio Not Available [facility] [address] [facility] [address], [place], [address], 11/12/2024 13:12:43 11/13/19 25 11/12/2024 BMP (FEMA LE) calcium 10.4 mg/dL 8.4-10 .5 Not Available [facility] [address] [facility] [address], [place], [address], 11/12/2024 13:12:43 11/13/19 25 11/12/2024 BMP (FEMA LE) sodium 134.0 mmol/ L 136.0- 145.0 low Not Available [facility] [address] [facility] 1, [place], [address], 11/12/2024 13:12:43 11/13/19 25 11/12/2024 BMP (FEMA LE) potassium 3.4 mmol/ L 3.5-5. 1 low Not Available [facility] [address] [facility] 1, [place], [address], 11/12/2024 13:12:43 11/13/19 25 11/12/2024 BMP (FEMA LE) chloride 100.0 mmol/ L 98.0-1 10.0 normal Not Available [facility] [address] [facility] 1, [place], [address], 11/12/2024 13:12:43 11/13/19 25 11/12/2024 BMP (FEMA LE) C02 23.0 mmol/ L 22.0-3 1.0 Not Available [facility] [address] [facility] 1, [place], [address], 11/12/2024 13:12:43 11/13/19 25 11/12/2024 BMP (FEMA LE) anion gap 11.0 calc Not Available [facility] [address] [facility] 1, [place], [address], 11/12/2024 13:12:43 09/19/19 25 12/03/2019 MR, angio gram, head, w/o contr ast No observ ation record ed. [email or web address] Not Available 09/19 08:56:06 09/19/19 25 10/14/2023 CT, head, w/wo contr ast No observ ation record ed. [email or web address] Not Available 09/19 08:56:40 10/18/19 25 09/26/2024 polys omnog roxana No observ ation record ed. [address] [facility] [address] [facility], [address], [place], [address], 10/23/2024 12:36:11 11/08/19 25 11/06/2024 XR, knee, 3 view No observ ation record ed. [address] [place], [address], 11/12/2024 13:46:46 12/25/19 25 12/19/2024 polys omnog estrella , titra tion study (PROC ) No observ ation record ed. [address] [place], [address], 12/27/2024 15:56:18 12/25/19 25 12/24/2024 MAMMO , scree morgan, digit al, bilat eral No observ ation record ed. [address] [place], [address], 12/27/2024 15:56:29 Result Notes None recorded. Problems Name Problem SNOMED Code Status Onset Date Resolution Date Notes Provider Name and Address Organization Details Recorded Time Cardiac pacemaker in situ 739095443 Active 2021 medtronic axure [id number] DR[address] S[address] [facility] 4 15:11:44 Atrial fibrillat ion 62568037 Active [address] [facility] 4 13:38:34 Hyperlipi demia 13852086 Active [address] [facility] 4 13:39:09 Herpes simplex - other Active [address] [facility] 5 15:25:57 Sensorine ural hearing loss of bilateral ears 503359845 Active 2021 SAKINA AZUL null, [facility] 5 09:19:59 Hypothyro idism 33442367 Active 2021 SAKINA AZUL null, [facility] 4 13:38:54 Benign essential hypertens ion 6327004 Active 2021 SAKINA AZUL null, [facility] 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 5 12:22:48 Chronic kidney disease stage 3A 735698792 Active 2023 SAKINA AZUL null, [facility] 5 09:19:59 Hypertrop hic obstructi ve cardiomyo kel 85738552 Active 2023 SAKINA AZUL null, [facility] 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 5 15:25:57 Iron deficienc y 09773381 Active 2023 SAKINA AZUL null, [facility] 5 09:19:59 Right kidney absent 249133320 Active 2023 SAKINA AZUL null, [facility] 5 09:19:59 Acquired dilation of bile duct 838827190905 9108 Active 2024 Mellisa Rios null, [facility] 5 15:25:57 Stenosis of bile duct 65010197 Active 2024 Mellisa Rios null, [facility] 5 15:25:57 Chronic pancreati tis 585904070 Active 2024 SAKINA AZUL null, [facility] 5 09:19:59 Glaucoma 07911087 Active 2024 SAKINA AZUL null, [facility] 5 09:20:51 Chronic diastolic heart failure 520153455 Active 2024 SAKINA AZUL null, [facility] 5 09:22:37 Low back pain 923854505 Active 2024 SAKINA AZUL null, [facility] 5 09:26:46 Hypertens ivelisse heart AND chronic kidney disease with congestiv e heart failure 398718652503 07 Active 2024 SAKINA AZUL null, [facility] 5 09:26:52 Hyperkale je 13656877 Active 2024 Mellisa Rios null, [facility] 5 12:32:29 Obstructi ve sleep apnea syndrome 21303025 Active 2024 Mellisa Rios null, [facility] 5 10:13:50 Dysuria 18148357 Active 2024 Mellisa Rios null, [facility] 5 14:01:29 Edema of lower extremity 148882134 Active 2024 [facility] 5 14:52:22 Dermatoph ytosis 99215483 Active 2024 SAKINA AZUL [facility] 5 16:35:29 Hypoxia 592753445 Active 2024 [facility] 5 15:51:45 Problem Notes None recorded. Procedures Surgical History Date Name Laterality Status Provider Name and Address Organization Details Recorded Time 05/16/20 echocardiography completed [facility] 05/23/2024 14:13:13 ligation of fallopian tube completed [facility] 08/06/2024 15:28:40 Cataract Surgery completed Nicolette Christianson [facility] 12/12/2024 14:42:12 resection of segment of liver completed [facility] 02/10/2023 15:15:50 cardiac pacemaker procedure completed [facility] 02/10/2023 15:16:06 cholecystectomy completed [facility] 02/10/2023 15:16:14 hysterectomy completed [facility] 02/10/2023 15:16:26 Appendectomy completed [facility] 02/10/2023 15:17:56 Imaging Results None recorded. Procedure Notes None recorded. Medical Equipment None Reported. Allergies Allergen ID Allergen Name Allergen Category Reaction Reaction Severity Criticality Documentation Date Start Date Code Code System Note Provider Name and Address Organization Details Recorded Time 58275 Augmentin medicatio n Not available Not available Not available 01/01/2023 12844 2 RxNorm SAKINA AZUL [facility] 4 13:32:12 34009 acetamino phen / dextromet horphan / guaifenes in / pseudoeph edrine medicatio n chest pain Not available Not available 01/01/2023 55870 8 RxNorm React ion: Chest pain; Comme nt: Recor ded 05/14 12:13 PM by Angie Gallardo , Offic e Visit ; Jamil kaufman; Blake chopra ce: *; ; [facility] 3 15:14:56 5684 hydralazi ne medicatio n Not available Not available Not available 12/31/2022 5470 RxNorm SAKINA JORGE ALBERTO [facility] 4 09:01:13 5685 Product containin g penicilli n (product) medicatio n Not available Not available Not available 12/31/2022 76052 8001 SNOMED Mellisa Blanca [facility] 3 08:50:01 5686 Buspar medicatio n Not available Not available Not available 12/31/2022 37758 0 RxNorm Mellisa Blanca [facility] 3 08:50:14 5688 benzonata te medicatio n Not available Not available Not available 12/31/2022 03666 RxNorm Mellisa Blanca [facility] 3 08:50:47 Medications Name Sig Start Date Stop Date Status Note LastModified by Organization Details LastModified Time furosemid e 40 mg tablet Take 1.5 tablets every day by oral route for 30 days. 10/11 completed Not Available Not Available Not Available latanopro st 0.005 % eye drops INSTILL 1 DROP INTO BOTH EYES EVERY DAY IN THE EVENING active Not Available Not Available No t Available atorvasta tin 40 mg tablet TAKE 1 TABLET BY MOUTH EVERY DAY active Not Available Not Available No t Available carvedilo l 25 mg tablet TAKE 1 TABLET BY MOUTH TWICE A DAY 05/27 completed pt has d/c'd Not Available Not Available Not Available atorvasta tin 20 mg tablet TAKE 1 TABLET BY MOUTH EVERY NIGHT 12/31 completed Not Available Not Available Not Available clindamyc in HCl 300 mg capsule TAKE 1 CAPSULE BY MOUTH THREE TIMES A DAY 12/31 completed Not Available Not Available Not Available diphenhyd ramine 50 mg capsule 1 tablet [address] 10/31 completed Not Available Not Available Not Available azithromy leonela 250 mg tablet TAKE 2 TABLETS BY MOUTH TODAY, THEN TAKE 1 TABLET DAILY FOR 4 DAYS DIRECTED 07/09 completed Not Available Not Available Not Available levalbute rol 0.63 mg/3 mL solution for nebulizat ion USE 1 VIAL VIA NEBULIZE R EVERY 4-6 HOURS FOR NEEDED FOR WHEEZING . active Not Available Not Available No t Available ofloxacin 0.3 % eye drops PLEASE SEE ATTACHED FOR DETAILED DIRECTIO NS active Not Available Not Available No t Available amiodaron e 200 mg tablet TAKE 1 TABLET BY MOUTH EVERY DAY FOR 60 DAYS active Not Available Not Available No t Available ondansetr on HCl 8 mg tablet TAKE 1 TABLET BY MOUTH TWICE A DAY active Not Available Not Available No t Available spironola ctone 25 mg-hydroc hlorothia zide 25 mg tablet TAKE 1 TABLET BY MOUTH EVERY DAY 09/06 completed Not Available Not Available Not Available prednison e 20 mg tablet TAKE ONE TABLET BY MOUTH TWICE DAILY for FIVE DAYS 09/06 completed Not Available Not Available Not Available triamcino lone acetonide 0.025 % lotion APPLY TO AFFECTED AREA TWICE A DAY 12/31 completed Not Available Not Available Not Available Diflucan 150 mg tablet Take 1 tablet every week by oral route for 14 days. 05/22 completed Not Available Not Available Not Available hydralazi ne 25 mg tablet TAKE 1 TABLET BY MOUTH THREE TIMES A DAY active Not Available Not Available No t Available amlodipin e 2.5 mg tablet TAKE 1 TABLET BY MOUTH EVERY DAY FOR HTN 12/31 completed Not Available Not Available Not Available potassium chloride ER 10 mEq tablet,ex tended release TAKE 2 TABLETS BY MOUTH EVERY DAY FOR 30 DAYS active Not Available Not Available No t Available metronida zole 500 mg tablet TAKE 1 TABLET BY MOUTH THREE TIMES A DAY FOR 3 DAYS 04/11 completed Not Available Not Available Not Available ciproflox acin 500 mg tablet TAKE 1 TABLET BY MOUTH EVERY 12 HOURS FOR 5 DAYS 02/10 completed Not Available Not Available Not Available triamcino lone acetonide 0.1 % topical cream APPLY TO RASH TWICE DAILY NEEDED FOR ITCHING 01/28 completed Not Available Not Available Not Available spironola ctone 25 mg tablet Take 1 tablet every day by oral route for 90 days. 2024 active Not Available Not Available Not Avai lable ondansetr on 8 mg disintegr ating tablet DISSOLVE 1/2-1 TABLET BY MOUTH EVERY 6 HOURS NEEDED FOR NAUSEA/V OMITING 12/12 completed Not Available Not Available Not Available levothyro xine 75 mcg tablet TAKE 1 TABLET BY MOUTH EVERY DAY active Not Available Not Available No t Available levothyro xine 88 mcg tablet TAKE 1 TABLET BY MOUTH EVERY DAY 04/20 completed Not Available Not Available Not Available prednisol one acetate 1 % eye drops,fahad pension INSTILL 1 DROP 4 TIMES A DAY INTO LEFT EYE STARTING THE DAY AFTER SURGERY active Not Available Not Available No t Available amlodipin e 10 mg tablet TAKE 1 TABLET BY MOUTH EVERY DAY 12/31 completed Not Available Not Available Not Available levothyro xine 50 mcg tablet TAKE 1 TABLET BY MOUTH EVERY DAY; needs tsh and checkup 07/29 completed Not Available Not Available Not Available hydrocodo ne 7.5 mg-acetam inophen 325 mg tablet TAKE 1 TAB BY MOUTH EVERY 4-6HOURS NEEDED FOR PAIN MAX 2/DAY HOLD WITHIN 4 HOURS OF SLEEP (09/25) active Not Available Not Available No t Available hydralazi ne 100 mg tablet TAKE 1 TABLET BY MOUTH THREE TIMES DAILY MUST HAVE APPOINTM ENT FOR FURTHER REFILLS 03/08 completed Not Available Not Available Not Available pantopraz ole 40 mg tablet,de layed release TAKE 1 TABLET BY MOUTH EVERY DAY active Not Available Not Available No t Available nitrofura ntoin macrocrys ynes 100 mg capsule TAKE ONE CAPSULE TWICE DAY FOR 7 DAYS 12/31 completed Not Available Not Available Not Available prednison e 50 mg tablet TAKE 1 TAB BY MOUTH [address], 1 TAB [address], THEN 1 TAB [address] 10/31 completed Not Available Not Available Not Available brimonidi ne 0.2 % eye drops INSTILL ONE DROP IN BOTH EYES 2 TIMES PER DAY 07/29 completed Not Available Not Available Not Available flecainid e 100 mg tablet TAKE 1 TABLET BY MOUTH TWICE DAILY AT 9AM AND 9PM EVERY DAY 02/10 completed Not Available Not Available Not Available Banophen 25 mg capsule TAKE 2 CAPSULES BY MOUTH [address] SCAN 10/31 completed Not Available Not Available Not Available hydroxyzi ne HCl 25 mg tablet TAKE 1 TABLET BY MOUTH 3 TIMES A DAY NEEDED FOR ITCHING 09/06 completed Not Available Not Available Not Available hydralazi ne 50 mg tablet Take 1 tablet 3 times a day by oral route. 09/06 completed Not Available Not Available Not Available furosemid e 20 mg tablet TAKE 3 TABLETS BY MOUTH EVERY DAY active Not Available Not Available No t Available levofloxa leonela 750 mg tablet TAKE 1 TABLET BY MOUTH EVERY DAY FOR 3 DAYS 04/20 completed Not Available Not Available Not Available albuterol sulfate HFA 90 mcg/actua tion aerosol inhaler INHALE 2 PUFFS INTO THE LUNGS EVERY 4 HOURS FOR 30 DAYS 06/28 completed Not Available Not Available Not Available ketoconaz ole 2 % topical cream APPLY TO THE AFFECTED AREA(S) BY TOPICAL ROUTE THREE TIMES DAILY active Not Available Not Available No t Available hydroxyzi ne HCl 10 mg tablet TAKE 1 TABLET BY MOUTH EVERY FOUR HOURS NEEDED FOR ITCHING 12/31 completed Not Available Not Available Not Available cefdinir 300 mg capsule TAKE 1 CAPSULE BY MOUTH TWICE DAILY FOR 5 DAYS 04/20 completed Not Available Not Available Not Available dorzolami de 2 % eye drops PLACE 1 DROP IN EACH EYE TWICE DAILY active Not Available Not Available No t Available Bactrim DS 800 mg-160 mg tablet Take 1 tablet every 12 hours by oral route for 5 days. 05/22 completed Not Available Not Available Not Available Ventolin 90 mcg/actua tion aerosol inhaler q 4-6 hrs prn wheezing /sob 01/28 completed 436; Recorded 10/23/19 22 10:47AM by Sakina Azul LPN (Authori marcod through Jeanne Martinez MD), Refill Request; Refill Quantity : 3; Each; Not Available Not Available Not Available metoprolo l tartrate 25 mg tablet TAKE 1 TABLET BY MOUTH TWICE A DAY active Not Available Not Available No t Available nitrofura ntoin monohydra te/macroc rystals 100 mg capsule TAKE 1 CAPSULE BY MOUTH TWICE A DAY 12/31 completed Not Available Not Available Not Available levalbute rol HFA 45 mcg/actua tion aerosol inhaler Inhale 2 puffs every 6 hours by inhalati on route for 90 days. 09/06 completed Not Available Not Available Not Available triamcino lone acetonide two times daily 02/10 completed Recorded 05/20/20 10:22AM by DAKSHA Brito, Annotati on/Adden dum; Refill Quantity : 0; Not Available Not Available Not Available aspirin daily as needed 09/06 completed 0; Recorded 05/14/20 12:13PM by Magdalena Gallardo, Office Visit; Not Available Not Available Not Available furosemid e daily on days with swelling 01/28 completed take only on days with swelling ; 436; Recorded 05/24/20 7:58AM by Mellisa Romero RN (Authori sandy through Jeanne Martinez MD), Refill Request; Refill Quantity : 30; Tablet; Not Available Not Available Not Available carvedilo l two times daily 01/28 completed 0; Recorded 05/14/20 22 12:13PM by Magdalena Gallardo, Office Visit; Not Available Not Available Not Available hydralazi ne three times daily 01/28 completed 0; Recorded 05/14/20 22 12:13PM by Magdalena Gallardo, Office Visit; Not Available Not Available Not Available lisinopri l daily 01/28 completed 0; Recorded 05/14/20 22 12:13PM by Magdalena Gallardo, Office Visit; Not Available Not Available Not Available [facility] Levothyro xine Sodium daily 01/28 completed 436; Recorded 03/10/20 22 2:32PM by Mellisa Romero, RN (Authori zed through Jeanne Martinez MD), Refill Request; Refill Quantity : 90; Tablet; Not Available Not Available Not Available ondansetr on Q 4HR PRN NAUSEA 01/28 completed 0; Recorded 05/14/20 22 12:13PM by Magdalena Gallardo, Office Visit; Not Available Not Available Not Available Diltiazem HCL ER daily 01/28 completed 0; Recorded 05/14/20 22 12:13PM by Magdalena Gallardo, Office Visit; Not Available Not Available Not Available ferrous gluconate 324 mg (38 mg iron) tablet Take 1 tablet every day by oral route for 90 days. 2024 active Not Available Not Available Not Avai lable Senna with Docusate Sodium 8.6 mg-50 mg tablet Take 2 tablets every day by oral route at bedtime for 90 days. 11/06 completed 0; Recorded 05/14/20 22 12:13PM by Magdalena Gallardo, Office Visit; Not Available Not Available Not Available ferrous gluconate 324 mg (37.5 mg iron) tablet TAKE 1 TABLET BY MOUTH EVERY DAY 09/06 completed Not Available Not Available Not Available Eliquis 5 mg tablet TAKE 1 TABLET BY MOUTH TWICE A DAY active Not Available Not Available No t Available Eliquis bid 01/28 completed melida/a,; 436; Recorded 02/13/20 7:18AM by Sakina Azul LPN (Authori zed through Jeanne Martinez MD), Refill Request; Refill Quantity : 180; Tablet; Not Available Not Available Not Available potassium chloride ER 20 mEq tablet,ex tended release TAKE 1 TABLET BY MOUTH EVERY DAY 10/12 completed Not Available Not Available Not Available Tiadylt ER 360 mg capsule,e xtended release Take 1 capsule every day by oral route for 90 days. 2024 active Not Available Not Available Not Avai lable Tiadylt ER 120 mg capsule,e xtended release TAKE 1 CAPSULE BY MOUTH EVERY DAY 12/12 completed Not Available Not Available Not Available Tiadylt ER 240 mg capsule,e xtended release TAKE 1 CAPSULE BY MOUTH EVERY DAY FOR 90 DAYS 11/06 completed Not Available Not Available Not Available Voltaren Arthritis Pain 1 % topical gel APPLY 4 GRAMS TO THE right knee BY TOPICAL ROUTE 4 TIMES PER DAY 2024 active Not Available Not Available Not Adamshelby Carter Ellipta 200 mcg-62.5 mcg-25 mcg powder for inhalatio n INHALE 1 PUFF BY MOUTH EVERY DAY active Not Available Not Available No t Available Paxlovid 300 mg (150 mg x 2)-100 mg tablets in a dose pack TAKE 3 TABLETS BY MOUTH TWICE A DAY FOR 5 DAYS 03/27 completed Not Available Not Available Not Available Vitals Date Recorded Body height Body mass index (BMI) Body weight Body temperature Heart rate Oxygen saturation Oxygen saturation in Arterial blood by Pulse oximetry Systolic And Diastolic Provider Name and Address Organization Details Last Updated DateTime 5 163.2 cm 25.4 kg/m2 15821.2 6 g 97.5 [degF] 86 /min 94 % 94 % 118/74 mm[Hg] SAKINA AZUL [facility] 5 12:21:56 Date Recorded Body height Body temperature Heart rate Oxygen saturation Oxygen saturation in Arterial blood by Pulse oximetry Systolic And Diastolic Provider Name and Address Organization Details Last Updated DateTime 5 163.2 cm 97.2 [degF] 91 /min 95 % 95 % 122/78 mm[Hg] [facility] 5 13:54:51 Date Recorded Body height Body mass index (BMI) Body weight Body temperature Heart rate Oxygen saturation Oxygen saturation in Arterial blood by Pulse oximetry Systolic And Diastolic Provider Name and Address Organization Details Last Updated DateTime 5 163.2 cm 24.2 kg/m2 12167.1 2 g 97.3 [degF] 92 /min 95 % 95 % 124/84 mm[Hg] [facility] 5 13:04:50 Date Recorded Body height Body mass index (BMI) Body weight Oxygen saturation Oxygen saturation in Arterial blood by Pulse oximetry Heart rate Respiratory rate Body temperature Systolic And Diastolic Provider Name and Address Organization Details Last Updated DateTime 5 163.2 cm 23.5 kg/m2 31491.7 5 g 92 % 92 % 81 /min 20 /min 97.2 [degF] 118/68 mm[Hg] Nicolette Christianson [facility] 14:37:46 Social History Question Answer Notes LastModified by Organizat ion Details LastModified Time Tobacco Smoking Status Current Every Day Smoker SAKINA JORGE ALBERTO tabares [facility] 02/10/2023 15:27:20 What Was The Date Of Your Most Recent Tobacco Screening? 12/12/2024 [email or web address] Information not available 12/12/2024 How Much Tobacco Do You Smoke? 0.25 PPD Information not available 02/10/2023 Has Tobacco Cessation Counseling Been Provided? No [email or web address] Information not available 02/10/2023 Sex: Unknown Functional Status Question Answer Note LastModified by Organization D etails LastModified Time Do you or have you ever used any other forms of tobacco or nicotine? No [email or web address] Information not available 02/10/2023 Mental Status None recorded. Family History Nothing Reported. Medical History No medical history recorded. Gynecological HistoryNo gynecological history recorded. Obstetrics History GPAL:G 0 P 0 0 0 0 Immunizations Vaccine Type Date Status Note Provider Nam e and Address Organization Details Recorded Time Influenza, split virus, trivalent, preservative 0 completed Not Available [facility] 05/27/2023 13:10:53 Td (adult), 2 Lf tetanus toxoid, preservative free, adsorbed [address] [facility] 12/31/2022 08:51:03 Past Encounters Encounter ID Performer Location Encounter Start Date Encounter Closed Date Diagnosis/Indication Diagnosis SNOMED-CT Code Diagnosis ICD10 Code Diagnosis Note [id number] Jeanne Martinez MD [facility] ([facility]) [address] [place] [address] [phone] 5 12/31/2022 08:34:47 12/31/2022 10:47:18 Sudden visual loss 35237975 H53.133 4 months ago. cannot really say what visual rodarte at this point. lets say total. i will request her visual field exam which has been since her vision loss episode. Hypothyroidism 64365298 E03.9 Atrial fibrillation 4943 6004 I48.91 Hyperlipidemia 36752012 E78.5 Screening mammography 24 885113 Z12.31 Chronic low back pain 27 2735934 M54.50 [id number] Jeanne Martinez MD [facility] ([facility]) [address] [place] [address] 5 01/28/2023 11:27:48 01/28/2023 13:44:14 Dysuria 13317731 R30.0 Pruritic rash 71759334 L 28.2 [id number] Jeanne Martinez MD [facility] ([facility]) [address] [place] [address] 5 02/10/2023 15:04:23 02/18/2023 21:50:18 Hypothyroidism 41165364 E03.9 Acute urin josé tract infection 529792233 N39.0 Essential hypertension 14437097 I10 [id number] Jeanne Martinez MD [facility] ([facility]) [address] [place] [address] 5 05/27/2023 13:10:43 05/27/2023 15:08:50 Atrial fibrillation 24107188 I48.91 Chest pain 80513545 R07. 9 Pain in th oracic spine 890083250 M54.6 [id number] Jeanne Martinez MD [facility] ([facility]) [address] [place] [address] 5 07/29/2023 13:28:29 07/29/2023 14:14:30 Hypothyroidism 76879943 E03.9 Acute urin josé tract infection 771143360 N39.0 Essential hypertension 71336875 I10 Atrial fibrillation 4943 6004 I48.91 Hyperlipidemia 33989016 E78.5 Benign ess ential hypertension 4638462 I10 Chronic ki dney disease stage 3A 618010794 N18.31 Tobacco user 063759564 Z 72.0 Screening for malignant neoplasm of colon 457176546 Z12.11 Tumor of p ituitary and suprasellar region 668911670 D49.7 Screening mammography 24 207101 Z12.31 Hypertroph ic obstructive cardiomyopathy 82002647 I42.1 Hyperglycemia 99983058 R 73.9 [id number] Jeanne Martinez MD [facility] ([facility]) [address] [place] [address] [id number] 5 11/01/2023 13:38:16 11/01/2023 15:03:33 Atrial fibrillation 14331361 I48.91 Benign ess ential hypertension 7216591 I10 Hyperlipidemia 22992478 E78.5 Hypothyroidism 75514690 E03.9 Hyperglycemia 00606031 R 73.9 [id number] Jeanne Martinez MD [facility] ([facility]) [address] [place] [address] [id number] 5 01/20/2024 10:14:13 01/23/2024 10:48:29 Benign essential hypertension 5708609 I10 Hyperlipidemia 59083401 E78.5 Hypothyroidism 90315806 E03.9 [id number] Jeanne Martinez MD [facility] ([facility]) [address] [place] [address] [id number] 5 01/27/2024 13:14:18 01/27/2024 17:27:14 Hypothyroidism 03614302 E03.9 Chronic ki dney disease stage 3A 715900336 N18.31 [id number] Jeanne Martinez MD [facility] ([facility]) [address] [place] [address] [phone] 5 02/17/2024 12:48:15 02/17/2024 16:33:53 Chronic atrial fibrillation 233389885 I48.20 Microcytosis 330393939 R 71.8 will continue eliquis/as pirin for now. it does not appear she has an acute bleed. will need endoscopy. this is a difficult decision, but right now the benefit of continues appears to outweigh the risk of stopping her medication . tez and i have talked about it. and she agrees with plan of care. she has never had a colonoscop y. colhever was done 3 years ago and was negative.s he has an echo pending for her heart murmur. it has been present for a lot of years. she has no signs of decompensa tion. last echo was negative for significan t valvular disease 2 years ago. she has had several. however, this should be completed prior to endoscopy. this is march 14 at 2:15, she says. she already has a ride. 11/13/21 Echo Normal left ventricula r size and systolic function, EF 70 %. Mild left ventricula r hypertroph y. Moderate mitral annular calcificat ion. Mildly increased left atrial size. Features of aortic valve sclerosis. Trace tricuspid valve regurgitat ion. Estimated pulmonary artery peak systolic pressure of 37 mmHg. Trace tricuspid valve regurgitat ion. Estimated pulmonary artery peak systolic pressure of 37 mmHg. There is no pericardia l effusion. There are no intracardi ac masses. Compared to the study from 03/22/2017 , there may not be significan t change Essential hypertension 79159352 I10 [id number] Ilia Rose DO [facility] ([facility]) [address] [place] [address] [id number] 5 02/28/2024 14:15:49 02/28/2024 17:37:43 Screening for malignant neoplasm of colon 358130542 Z12.11 I have reviewed and discussed EGD colon cancer screening options, including colonoscop y. Discussed risks vs benefits including risk of infection and bleeding, perforatio n, possible need for surgery, reaction to medication s, and sever injury or . We discussed pt requiring sedation and possible general anesthesia . Pt agrees to proceed with EGD and Colonoscop y at [facility]. Preliminar y procedure date will be 03/29/24, this will be after Echo, scheduled for 03/20/24, pt will need Cardiac clearance prior. [id number] Jeanne Martinez MD [facility] ([facility]) [address] [place] [address] [phone] 5 03/20/2024 13:23:22 03/20/2024 15:01:34 Left lower quadrant pain 247683520 R10.32 keep endoscopy f/usx improvingc t did not identify a worrisome cause. Nodule of lung 217910973 R91.1 Chronic ki dney disease stage 3A 819149340 N18.31 Chronic ob structive pulmonary disease 49759203 J44.9 Acute exac erbation of chronic obstructive pulmonary disease 461786544 J44.1 COVID-19 568386318 U07.1 [id number] Jeanne Martinez MD [facility] ([facility]) [address] [place] [address] [id number] 5 03/27/2024 13:16:53 03/27/2024 14:55:32 Intractable abdominal pain 7833767870 6359116 R10.9 EHS called. I will call the ED and give report [id number] Jeanne Martinez MD [facility] ([facility]) [address] [place] [address] [id number] 5 04/11/2024 12:26:13 04/12/2024 10:21:20 Acute pancreatitis 430256554 K85.90 Atrial fib rillation with rapid ventricular response 1207622511 08399 I48.91 Acute kidney injury 1466 9001 N17.9 Pneumonia caused by SARS-CoV-2 5242850557 98494769 J12.82 Edema of l ower extremity 901882767 R60.0 Right kidney absent 4438 53477 Z90.5 Acquired c ystic dilatation of common bile duct 849050919 K83.5 unknown etiology of her pancreatit ishx of gallbladde r cancer Chronic low back pain 27 2594157 M54.50 Dysuria 82544071 R30.0 Vaginal discharge 816550 006 N89.8 [id number] Jeanne Martinez MD [facility] ([facility]) [address] [place] [address] [id number] 5 04/19/2024 14:53:39 04/20/2024 12:39:45 Chronic kidney disease stage 3A 648784306 N18.31 [id number] Jeanne Martinez MD [facility] ([facility]) [address] [place] [address] [id number] 5 04/20/2024 11:28:42 04/20/2024 14:49:05 Candidiasis of vagina 88841493 B37.31 Chronic pr imary low back pain 5142143793 7100 M54.50 she has legitimate chronic low back pain. we have long had an agreement that I could not manage all of her overwhelmi ng medical conditions and slide in pain management at these visits. we have had an agreement over the years that this would be addressed with pain management referral if chronic pain treatment was needed. she had agreed. i will attempt to refer her to pain management at this time. she has an appt next week in which i will focus on her pain management . imaging has been done in he past. this will need to be updated. i humbly request help managing this complex patient's pain so that I can focus on her numerous other medical issues. Chronic at rial fibrillation 179934043 I48.20 Acute pancreatitis 91179 6007 K85.90 dx for hydrocodon e should have been chronic back pain. i cannot recall or resend the script. [id number] Jeanne Martinez MD [facility] ([facility]) [address] [place] [address] [id number] 5 04/27/2024 13:10:35 04/30/2024 13:47:02 Atrial fibrillation 14263080 I48.91 she did not take her dilt today she will go home and take that right away. Chronic at rial fibrillation 473962470 I48.20 Edema of l ower extremity 965778203 R60.0 [id number] Jeanne Martinez MD [facility] ([facility]) [address] [place] [address] [id number] 5 05/01/2024 13:02:12 05/01/2024 14:19:54 Dysuria 67180394 R30.0 Acute infe ctive cystitis 482439818 N30.00 Chronic at rial fibrillation 212448016 I48.20 [id number] Jeanne Martinez MD [facility] ([facility]) [address] [place] [address] [id number] 5 05/09/2024 10:05:26 05/09/2024 12:29:57 Atrial fibrillation 37032839 I48.91 she did not take her dilt today she will go home and take that right away. Dysuria 20605356 R30.0 [id number] Jeanne Martinez MD [facility] ([facility]) [address] [place] [address] [id number] 5 05/22/2024 12:16:36 05/22/2024 15:36:27 Dysuria 63665815 R30.0 Chronic di astolic heart failure 710286565 I50.32 Atrial fib rillation with rapid ventricular response 8900363185 79525 I48.91 Acute kidney injury 1466 9001 N17.9 Edema of l ower extremity 830673942 R60.0 Right kidney absent 4438 38246 Z90.5 Acquired c ystic dilatation of common bile duct 174041674 K83.5 unknown etiology of her pancreatit ishx of gallbladde r cancer Chronic low back pain 27 2239578 M54.50 Atrial fibrillation 4943 6004 I48.91 she did not take her dilt today she will go home and take that right away. needs rhythm control if at all possible possibly digoxin. rate remains quite high but bp is labile and gets low at times. [id number] Jeanne Martinez MD [facility] ([facility]) [address] [place] [address] [id number] 5 06/08/2024 11:41:52 06/09/2024 08:05:29 Benign essential hypertension 4528777 I10 Hypothyroidism 35520060 E03.9 [id number] Jeanne Martinez MD [facility] ([facility]) [address] [place] [address] [phone] 5 06/14/2024 13:19:49 06/14/2024 14:51:41 Microcytosis 630970917 R71.8 will continue eliquis/as pirin for now. it does not appear she has an acute bleed. will need endoscopy. this is a difficult decision, but right now the benefit of continues appears to outweigh the risk of stopping her medication . tez and i have talked about it. and she agrees with plan of care. she has never had a colonoscop y. cologuard was done 3 years ago and was negative.s he has an echo pending for her heart murmur. it has been present for a lot of years. she has no signs of decompensa tion. last echo was negative for significan t valvular disease 2 years ago. she has had several. however, this should be completed prior to endoscopy. this is march 14 at 2:15, she says. she already has a ride. 11/13/21 Echo Normal left ventricula r size and systolic function, EF 70 %. Mild left ventricula r hypertroph y. Moderate mitral annular calcificat ion. Mildly increased left atrial size. Features of aortic valve sclerosis. Trace tricuspid valve regurgitat ion. Estimated pulmonary artery peak systolic pressure of 37 mmHg. Trace tricuspid valve regurgitat ion. Estimated pulmonary artery peak systolic pressure of 37 mmHg. There is no pericardia l effusion. There are no intracardi ac masses. Compared to the study from 03/22/2017 , there may not be significan t change Edema of l ower extremity 370403516 R60.0 Iron deficiency 91550558 E61.1 Chronic ob structive pulmonary disease 31419945 J44.9 Atrial fibrillation 4943 6004 I48.91 she did not take her dilt today she will go home and take that right away. needs rhythm control if at all possible possibly digoxin. rate remains quite high but bp is labile and gets low at times. Acute pancreatitis 6007 K85.90 dx for hydrocodon e should have been chronic back pain. i cannot recall or resend the script. [id number] Jeanne Martinez MD [facility] ([facility]) [address] [place] [address] [id number] 5 06/28/2024 12:57:19 06/28/2024 17:19:14 Acquired dilation of bile duct 0076711779 490998 K83.8 Cough 61642022 R05.9 Acute uppe r respiratory infection 72216427 J06.9 Fever 157301608 R50.9 Chronic ob structive pulmonary disease 63920108 J44.9 resume your trelegy and take it every day whether you feel great or terrible. [id number] Jeanne Martinez MD [facility] ([facility]) [address] [place] [address] [id number] 5 07/09/2024 13:20:56 07/10/2024 16:39:39 Pain of right knee joint 7693870633 99546 M25.561 ice and rest the knee Sprain of medial collateral ligament of knee 00053373 S83.411A [id number] Ilia Rose DO [facility] ([facility]) [address] [place] [address] [id number] 5 07/23/2024 13:56:00 07/27/2024 11:13:38 Atrial fibrillation 45500751 I48.91 persistent , on amiodarone , eliquis, and metoprolol Acquired d ilation of bile duct 6240437002 089411 K83.8 pt has ERCP and ductal stent placement scheduled in [facility] end of JUL. Chronic pancreatitis 235 813604 K86.1 Stenosis of bile duct 43 008550 K83.1 Melena 0922368 K92.1 [id number] Jeanne Martinez MD [facility] ([facility]) [address] [place] [address] 5 08/06/2024 13:55:06 08/07/2024 15:38:00 Chronic diastolic heart failure 405678702 I50.32 Hypertroph ic obstructive cardiomyopathy 88572140 I42.1 Atrial fibrillation 4943 6004 I48.91 she did not take her dilt today she will go home and take that right away. needs rhythm control if at all possible possibly digoxin. rate remains quite high but bp is labile and gets low at times. Chronic ki dney disease stage 3A 526422440 N18.31 Hyperlipidemia 27788932 E78.5 Low back pain 998721058 M54.50 Hypertensi ve heart AND chronic kidney disease with congestive heart failure 6551838238 9107 I13.0 Microcytosis 200226995 R 71.8 will continue eliquis/as pirin for now. it does not appear she has an acute bleed. will need endoscopy. this is a difficult decision, but right now the benefit of continues appears to outweigh the risk of stopping her medication . tez and i have talked about it. and she agrees with plan of care. she has never had a colonoscop y. cologuard was done 3 years ago and was negative.s he has an echo pending for her heart murmur. it has been present for a lot of years. she has no signs of decompensa tion. last echo was negative for significan t valvular disease 2 years ago. she has had several. however, this should be completed prior to endoscopy. this is march 14 at 2:15, she says. she already has a ride. 11/13/21 Echo Normal left ventricula r size and systolic function, EF 70 %. Mild left ventricula r hypertroph y. Moderate mitral annular calcificat ion. Mildly increased left atrial size. Features of aortic valve sclerosis. Trace tricuspid valve regurgitat ion. Estimated pulmonary artery peak systolic pressure of 37 mmHg. Trace tricuspid valve regurgitat ion. Estimated pulmonary artery peak systolic pressure of 37 mmHg. There is no pericardia l effusion. There are no intracardi ac masses. Compared to the study from 03/22/2017 , there may not be significan t change Edema of l ower extremity 455690023 R60.0 Iron deficiency 71644958 E61.1 Chronic ob structive pulmonary disease 73215383 J44.9 resume your trelegy and take it every day whether you feel great or terrible. Acute pancreatitis 81065 6007 K85.90 dx for hydrocodon e should have been chronic back pain. i cannot recall or resend the script. Chronic at rial fibrillation 472508272 I48.20 Nausea and vomiting 1693 2000 R11.2 possible bile duct stent in the near future [id number] Jeanne Martinez MD [facility] ([facility]) [address] [place] [address] [phone] 5 08/30/2024 11:19:13 08/31/2024 11:32:06 Benign essential hypertension 9694983 I10 Hypothyroidism 56016626 E03.9 Iron deficiency 26483165 E61.1 [id number] Jeanne Martinez MD [facility] ([facility]) [address] [place] [address] [id number] 5 09/06/2024 12:41:37 09/06/2024 16:16:21 Acute exacerbation of chronic obstructive pulmonary disease 760606862 J44.1 Acute kidney injury 1466 9001 N17.9 Atrial fib rillation with rapid ventricular response 5288844461 58105 I48.91 Acquired d ilation of bile duct 4463422256 629540 K83.[address] of oddi spasm vs bile duct stricture is the most likely explanatio n of her pain chronic post prandial pain. I cannot fix that. I have asked GI to evaluate. unfortunat enriqueta they did not feel they had enough informatio n . however, the MRCP was available to them. We were hopeful for Endoscopic ductal evaluation and possible stenting. will continue to work toward that end. Chronic constipation 236 263494 K59.09 she is doing fiber daily.cecy lax don't work the [facility] [id number] Jeanne Martinez MD [facility] ([facility]) [address] [place] [address] [phone] 5 09/26/2024 13:26:03 09/27/2024 14:21:57 Red blood cell count above reference range 281676716 R71.8 Abdominal discomfort 433 31098 R10.9 [id number] Jeanne Martinez MD [facility] ([facility]) [address] [place] [address] [id number] 5 10/11/2024 12:08:30 10/11/2024 14:36:25 Benign essential hypertension 6877769 I10 Low back pain 892316301 M54.50 i have talked to her once again about considerin g lesi and interventi onal pain tx. she will consider it now. she has 44 hydrocodon e in her bottle today. it is prescribed by dr. redding, but he is retiring. Chronic at rial fibrillation 810339633 I48.20 Obstructiv e sleep apnea syndrome 58120286 G47.33 Chronic ob structive pulmonary disease 64208625 J44.9 resume your trelegy and take it every day whether you feel great or terrible. Edema of l ower extremity 962156388 R60.0 [id number] Jeanne Martinez MD [facility] ([facility]) [address] [place] [address] 86425-936 5 11/06/2024 13:25:23 11/12/2024 11:51:49 Dysuria 53511779 R30.0 Vaginal discharge 297928 006 N89.8 Pain of ri ght knee joint 3483030023 74804 M25.561 ice and rest the knee [id number] Jeanne Martinez MD [facility] ([facility]) [address] [place] [address] [id number] 5 11/07/2024 15:57:30 11/08/2024 12:32:02 Benign essential hypertension 6632345 I10 Hypothyroidism 21194283 E03.9 Red blood cell count above reference range 965696642 R71.8 [id number] Jeanne Martinez MD [facility] ([facility]) [address] [place] [address] [phone] 5 11/12/2024 12:47:39 11/14/2024 13:12:58 Abnormal weight loss 226083875 R63.4 likely secondary to biliary issues. will need gi input to help assess and hopefully fix this. Nausea and vomiting 1692 1999 R11.2 possible bile duct stent in the near future [id number] Jeanne Martinez MD [facility] ([facility]) [address] [place] [address] 5 12/12/2024 14:30:26 12/12/2024 15:25:35 Tumor of pituitary and suprasellar region 071214399 D49.7 she has chronic headaches appears to have visual hallucinat ions which are chronic, she reports she started hearing voices last week, and memory change. Auditory hallucinations 88921450 R44.0 new onset with hx of intracrani al mass. will need to image the brain, do an eeg and see neurology Health Concerns Section Related Observation LastModified by Organization Detai ls LastModified Time None Recorded Concern Status LastModified by Organization Details LastModified Time None Recorded Advance Directives Directive None Recorded Payers Insurance Date Sequence Insurance Name Policy Number Policy Rasmussen Covered Member ID Rasmussen Member ID Guarantor Name 12/29/2024 1 [id number]ANT[place] - [place]PO) [id number] Tez Moerschel [id number] Tez Moerschel 11/06/2024 1 [employer] (MEDICARE REPLACEMENT/ ADVANTAGE - HMO) Tez Moerschel [id number] Tez Moerschel OBGyn Episode No OBEpisode recorded.
--- OUTSIDE RECORDS SUMMARY | 2024-12-31 16:05 | XMS_ITS | Encounter Summary ---
Author Organization [facility] Address [address] [place] [address] Care Team Providers Care Flag Signalman Name Role Phone Unavailable Primary Care Provider Unavailabl e Encounter Details Date Type Department Care Team (Late st Contact Info) Description 04/11/2001 Outpatient Historical [facility] Christopher Prasad Lavaca [address] [place] [phone] Katelin Ortiz MD NO ADDRESS ON FILE SCREENING MAMM-MAILG NEOPL-OTHER (Primary Dx) Social History Tobacco Use Types Packs/Day Years Used Date Smoking Tobacco: Never Assessed Comments Unknown Sex and Gender Information Value Date Recorded Sex Assigned at Not on file Legal Sex Female 4:28 AM [employer] Gender Identity Not on file Sexual Orientation Not on file documented as of this encounter Plan of Treatment Not on file documented as of this encounter Visit Diagnoses Diagnosis Other screening mammogram- Primary documented in this encounter
--- OUTSIDE RECORDS SUMMARY | 2024-12-31 16:05 | XMS_ITS | Encounter Summary ---
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
--- OUTSIDE RECORDS SUMMARY | 2024-12-31 16:05 | XMS_ITS | Encounter Summary ---
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
--- OUTSIDE RECORDS SUMMARY | 2024-12-31 16:05 | XMS_ITS | Clinical Summary ---
Author Organization [facility] Address [address] [place]oyn: [place] [address] Care Team Providers Care Director Of Manufacturing Name Role Phone Unavailable Primary Care Provider Unavailabl e Encounters Date Type Department Care Team Description 10/15/2024 Orders Only [facility] Gastroenterology[address] [place] [id number] Mega Martinez MD Other specified diseases of biliary tract (Primary Dx); Other constipation from Last 3 Months Immunizations Immunization Administration Dates Next Due (TDVAX)(7 YRS UP) TETANUS AN D DIPHTHERIA TOXOIDS, ADSORBED (2 LF OF TETANUS TOXOID AND 2 LF OF DIPHTHERIA TOXOID), 0.5ML (PF), IM 05/28/2004 Social History Tobacco Use Types Packs/Day Years Used Date Smoking Tobacco: Never Assessed Comments Unknown Sex and Gender Information Value Date Recorded Sex Assigned at Not on file 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
--- OUTSIDE RECORDS SUMMARY | 2024-12-31 16:05 | XMS_ITS | Encounter Summary ---
Author Organization [facility] Address [address] [place] [address] Care Team Providers Care Optical Advisor Name Role Phone Unavailable Primary Care Provider Unavailabl e Encounter Details Date Type Department Care Team (Latest Contact Info) Description 06/13/2001 Outpatient Historical [facility] Imaging Services-Christopher Prasad [place] [address] [place] [address] Obed Moore MD NO ADDRESS ON FILE FEMALE GENITAL SYMPTOMS NOS (Primary Dx) Social History Tobacco Use Types Packs/Day Years Used Date Smoking Tobacco: Never Assessed Comments Unknown Sex and Gender Information Value Date Recorded Sex Assigned at Not on file 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
--- OUTSIDE RECORDS SUMMARY | 2024-12-31 16:05 | XMS_ITS | Encounter Summary ---
Author Organization [facility] Address [address] [place] [address] Care Team Providers Care Director Of Home Economics Name Role Phone Unavailable Primary Care Provider Unavailabl e Encounter Details Date Type Department Care Team (Latest Contact Info) Description 08/16/2001 Outpatient Historical [facility] Endocrinology-Dwight h Osmar Marshall [address] [place] [address] Noemí Goddard MD [address] [place] [address] HYPOTHYROIDISM NOS (Primary Dx); GOITER NOS Social History Tobacco Use Types Packs/Day Years Used Date Smoking Tobacco: Never Assessed Comments Unknown Sex and Gender Information Value Date Recorded Sex Assigned at Not on file Legal 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
--- OUTSIDE RECORDS SUMMARY | 2024-12-31 16:05 | XMS_ITS | Encounter Summary ---
Author Organization [facility] Address [address] [place] [address] Care Team Providers Care Noxious Weeds And Pest Inspector Name Role Phone Unavailable Primary Care Provider Unavailabl e Encounter Details Date Type Department Care Team (Latest Contact Info) Description 04/11/[address] 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
--- OUTSIDE RECORDS SUMMARY | 2024-12-31 16:05 | XMS_ITS | Encounter Summary ---
Author Organization [facility] Address [address] [place] [address] Care Team Providers Care Public Administration Teacher Name Role Phone Unavailable Primary Care Provider Unavailabl e Encounter Details Date Type Department Care Team (Latest Contact Info) Description 03/30/2001 Outpatient Historical [facility] GASTROENTEROLOGY Prashanth Hernandez MD NO ADDRESS ON FILE Chronic pancreatitis (CMS/HCC) (Primary Dx) Social History Tobacco Use Types Packs/Day Years Used Date Smoking Tobacco: Never Assessed Comments Unknown Sex and Gender Information Value Date Recorded Sex Assigned at Not on file Legal Sex Female 4:28 AM LINING 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
--- OUTSIDE RECORDS SUMMARY | 2024-12-31 16:05 | XMS_ITS | Encounter Summary ---
Author Organization [facility] Address [address] [place] [address] Care Team Providers Care Health Careers Instructor Name Role Phone Unavailable Primary Care Provider Unavailabl e Encounter Details Date Type Department Care Team (Late st Contact Info) Description 06/13/2001 Outpatient Historical [facility] OBGYN-Christopher [place] [address] [place] [phone] Social History Tobacco Use Types Packs/Day Years Used Date Smoking Tobacco: Never Assessed Comments Unknown Sex and Gender Information Value Date Recorded Sex Assigned at Not on file Legal 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
--- OUTSIDE RECORDS SUMMARY | 2024-12-31 16:05 | XMS_ITS | Encounter Summary ---
Author Organization [facility] Address [address] 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
--- OUTSIDE RECORDS SUMMARY | 2024-12-31 16:05 | XMS_ITS | Clinical Summary ---
Author Organization [facility] Address [address] [facility] [address] [address] [facility] [address] 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
--- OUTSIDE RECORDS SUMMARY | 2024-12-31 16:05 | XMS_ITS | Encounter Summary ---
Author Organization [facility] Address [address] [place] [address] Care Team Providers Care Auto Emissions Technician Name Role Phone Unavailable Primary Care Provider Unavailabl e Encounter Details Date Type Department Care Team (Latest Contact Info) Description 03/20/2001 Outpatient Historical [facility] OBDANIELN-Christopher [place] [address] [place] [address] Obed Moore MD NO ADDRESS ON FILE Gynecologic examination (Primary Dx); Vaginitis and vulvovaginitis, unspecified; Symptomatic menopausal or female climacteric states; Other malaise and fatigue Social History Tobacco Use Types Packs/Day Years Used Date Smoking Tobacco: Never Assessed Comments Unknown Sex and Gender Information Value Date Recorded Sex Assigned at Not on file 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
--- OUTSIDE RECORDS SUMMARY | 2024-12-31 16:05 | XMS_ITS | Encounter Summary ---
Author Organization [facility] Address [address] [place] [address] Care Team Providers Care Archivist Name Role Phone Unavailable Primary Care Provider Unavailabl e Encounter Details Date Type Department Care Team (Latest Contact Info) Description 06/13/2001 Outpatient Historical [facility] OBGYN-White [place] [address] [place] [address] Obed Moore MD NO ADDRESS ON FILE ABDOMINAL PAIN GENERALIZED (Primary Dx) Social History Tobacco Use Types Packs/Day Years Used Date Smoking Tobacco: Never Assessed Comments Unknown Sex and Gender Information Value Date Recorded Sex Assigned at Not on file Legal Sex Female 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
--- NOTE | 2024-12-31 16:07 | ECG_ITS ---
[facility] 2024[facility]31 Pat Name: Kaity Ferro Department: Room: Gender: Female Inside Upholsterer: : 1955 Requested By: Nargis Polk Order Number: [id number] Kayleigh MD: James Agrawal M.D. Measurements Intervals Turney Rate: 99 P: 236 MS: 183 QRS: 47 QRSD: 118 T: 0 QT: 232 QTc: 299 Interpretive Statements ECTOPIC ATRIAL RHYTHM LEFT VENTRICULAR HYPERTROPHY AND ST-T CHANGE [VOLTAGE CRITERIA PLUS ST/T ABNORMALITY] Compared to ECG 10/26/2024 15:22:02 Ectopic atrial rhythm now present ST (T wave) deviation now present T-wave abnormality no longer present Possible ischemia no longer present Electronically Signed On 01-03-2025 10:27:50 CDT by James Agrawal M.D. [email or web address]
[2024-12-31 16:26] LABS: Hematocrit 46.8 % (36-47); Hemoglobin 16.40 g/dL (11.27-16.99); Mean Corpuscular HGB Conc 35.0 g/dL (30-55); Mean Corpuscular Hemoglobin 31.9 pg (27-33); Mean Corpuscular Volume 91.1 fl (85-98); Nucleated Red Blood Cells % 0 %; Platelet Count 247 10^3/cmm (157-399); Red Blood Count 5.14 10^6/uL (3.85-5.65); White Blood Count 7.49 10^3/uL (3.29-11.43)
--- NOTE | 2024-12-31 16:44 | W.ED.CHESTPA ---
HPI - Chest Pain General: Chief Complaint: Chest Pain Stated Complaint: chest pain, sob, L arm pain Time Seen by Provider: 12/31/24 16:18 Source: patient Mode of arrival: ambulatory Limitations: no limitations History of Present Illness: 69-year-old female who states that she had fell on Tuesday and landed on her chest she states been having anterior chest pain where she had hit it since then states pain is worse with palpation said some pain go down her arms she denies any shortness of breath denies any fevers denies any cough Associated symptoms: Deny abdominal pain, dyspnea, fever(s), nausea or vomiting Related Data Home Medications ?Medication ?Instructions ?Recorded ?Confirmed apixaban 5 mg tablet (Eliquis) 5 mg PO BID 08/01/19 12/27/24 dorzolamide 2 % eye drops 1 drp ophthalmic (eye) TID 04/20/21 12/27/24 ferrous gluconate 324 mg (38 mg 324 mg PO DAILY 04/20/24 12/27/24 iron) tablet fluticasone fur. 200 mcg-umeclid 1 inh inhalation DAILY 04/20/24 12/27/24 62.5 mcg-vilant 25 mcg inhalat.powder (Trelegy Ellipta) hydrocodone 7.5 mg-acetaminophen 1 tab PO TID PRN Pain 04/20/24 12/27/24 325 mg tablet latanoprost 0.005 % eye drops 1 drp ophthalmic (eye) QPM 04/20/24 12/27/24 amiodarone 200 mg tablet 200 mg PO DAILY 07/31/24 12/27/24 atorvastatin 40 mg tablet (Lipitor) 40 mg PO DAILY 07/31/24 12/27/24 metoprolol tartrate 25 mg tablet 25 mg PO BID 07/31/24 12/27/24 ondansetron 8 mg disintegrating 4 - 8 mg PO Q6H PRN Nausea And 07/31/24 12/27/24 tablet Vomiting spironolactone 25 mg tablet 25 mg PO DAILY 08/28/24 12/27/24 diltiazem HCl 360 mg capsule,24 360 mg PO DAILY 09/01/24 12/27/24 hr,extended release (Tiadylt ER) pantoprazole 40 mg tablet,delayed 40 mg PO DAILY 09/01/24 12/27/24 release furosemide 20 mg tablet 20 mg PO TID 10/05/24 12/27/24 levothyroxine 75 mcg tablet 75 mcg PO DAILY 10/05/24 12/27/24 Allergies Allergy/AdvReac Type Severity Reaction Status Date / Time orange juice Allergy Intermediate ADR-Vomitin Verified 12/27/24 13:27 g amoxicillin Allergy unk Verified 12/27/24 13:27 buspirone Allergy unk Verified 12/27/24 13:27 hydralazine Allergy coughing Verified 12/27/24 13:27 and nausea Penicillins Allergy shortness Verified 12/27/24 13:27 of breath povidone-iodine (From Allergy unk Verified 12/27/24 13:27 Betadine) soap (From Betadine) Allergy unk Verified 12/27/24 13:27 Loybnzy-NVV-PkP Reductase Allergy FLu like Verified 12/27/24 13:27 Inhibitor (Bwpuqmu-Yuc-Mxb symptoms Reductase Inhibitor) carvedilol AdvReac Severe cough Verified 12/27/24 13:27 amlodipine AdvReac BLE edema Verified 12/27/24 13:27 valsartan AdvReac unknown Verified 12/27/24 13:27 Review of Systems Const: Denies: fever(s), chills, body aches or change in appetite ENMT: Denies: throat pain or dental pain Card: Reports: chest pain Resp: Denies: dyspnea GI: Denies: abdominal pain, nausea, vomiting or diarrhea Musc: Denies: neck pain or back pain Skin/Breast: Denies: rash Neuro: Denies: headache(s) PFSH ED PFSH: Medical History Chest pain Peripheral neuropathy Glaucoma Herpes genitalis 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 Brother CAD (coronary artery disease) Brother , 2 brothers of heart disease CAD (coronary artery disease) Denies family history of Diabetes Clotting disorder Dementia Hyperlipidemia Psychiatric illness Chronic kidney disease (CKD) Suicide Anesthesia complication Bleeding disorder Family history of premature coronary artery disease Lung disease Cancer Hypertension Stroke Social History Smoking and tobacco/nicotine status: current every day tobacco/nicotine user Alcohol intake: never Substance/Drug Use: never Physical Exam Const: COMMON NORMALS: no acute distress, patient oriented x3 and healthy appearing HENMT: COMMON NORMALS: normocephalic and atraumatic HEAD & SCALP: normocephalic and atraumatic Eye: COMMON NORMALS: conjunctivae normal CONJUNCTIVA: Yes conjunctivae normal Neck/C-Spine: COMMON NORMALS: full ROM and supple Chest: COMMONS NORMALS: normal inspection of the chest OTHER: Point tenderness center of chest Resp: COMMON NORMALS: normal respiratory effort, No retractions, No use of accessory muscles and clear to auscultation bilaterally AUSCULTATION: clear to auscultation bilaterally Cardio: COMMON NORMALS: regular rate, regular rhythm and No murmurs present (Cardio) RATE: regular rate RHYTHM: regular rhythm GI: COMMON NORMALS: Normal to inspection, nondistended, normoactive bowel sounds present, Soft to palpation, non-tender and no masses PALPATION: Yes Soft to palpation Extremity: COMMON NORMALS: normal to inspection and full ROM Neuro: COMMON NORMALS: patient oriented x3, moves all extremities and no focal motor deficits Psych: COMMON NORMALS: mental status grossly normal, Normal thought process present and cooperative THOUGHT PROCESS: Normal thought process present Skin: COMMON NORMALS: no rashes or lesions noted and no wounds GENERAL SKIN EXAM: no rashes or lesions noted Course Vital Signs: Vital signs: Vital Signs Temperature 97.6 F 12/31/24 16:02 Pulse Rate 76 12/31/24 19:19 Respiratory Rate 16 12/31/24 16:02 Blood Pressure 117/92 12/31/24 19:19 Pulse Oximetry 97 12/31/24 19:19 Oxygen Delivery Me thod Room Air 12/31/24 19:19 MDM - Chest Pain Medical Decision Making Patient presents here with chest pain is likely chest wall pain from her fall imaging here is normal did have some slight dehydration gave her IV fluids here she stable for discharge follow-up PCP return if worsening. Medical Records I reviewed the patient's medical records. Lab Data I reviewed the patient's lab results. 12/31/24 16:20 12/31/24 16:20 Radiology Impressions Chest X-Ray 12/31/24 16:00 IMPRESSION: No acute thoracic abnormality. Laboratory Results WBC 7.49 10^3/uL (3.29-11.43) 12/31/24 16:20 RBC 5.14 10^6/uL (3.85-5.65) 12/31/24 16:20 Hgb 16.40 g/dL (11.27-16.99) 12/31/24 16:20 Hct 46.8 % (36-47) 12/31/24 16:20 MCV 91.1 fl (85-98) 12/31/24 16:20 MCH 31.9 pg (27-33) 12/31/24 16:20 MCHC 35.0 g/dL (30-55) 12/31/24 16:20 RDW 15.2 % (12.1-15.1) H 12/31/24 16:20 Plt Count 247 10^3/cmm (157-399) 12/31/24 16:20 MPV 10.1 fL (7.4-10.4) 12/31/24 16:20 Neut % (Auto) 61.8 % 12/31/24 16:20 Lymph % (Auto) 24.2 % 12/31/24 16:20 Beauregard % (Auto) 12.6 % 12/31/24 16:20 Eos % (Auto) 0.3 % 12/31/24 16:20 Baso % (Auto) 0.7 % 12/31/24 16:20 Neut # (Auto) 4.64 10^3/uL (1.8-7.7) 12/31/24 16:20 Lymph # (Auto) 1.8 10^3/uL (0.8-4.8) 12/31/24 16:20 Beauregard # (Auto) 0.9 10^3/uL (0.2-0.9) 12/31/24 16:20 Eos # (Auto) 0.0 10^3/uL (0.0-0.8) 12/31/24 16:20 Baso # (Auto) 0.1 10^3/uL (0.0-0.1) 12/31/24 16:20 Nucleated RBC % (auto) 0 % 12/31/24 16:20 Nucleated RBCs # 0.0 /100WBC 12/31/24 16:20 Sodium 131 mmol/L (136-145) L 12/31/24 16:20 Potassium 3.0 mmol/L (3.5-5.1) L 12/31/24 16:20 Chloride 93 mmol/L (98-107) L 12/31/24 16:20 Carbon Dioxide 16 mmol/L (22-29) L 12/31/24 16:20 Anion Gap 25.0 (5-19) H 12/31/24 16:20 BUN 53 mg/dL (8-23) H 12/31/24 16:20 Creatinine 3.1 mg/dL (0.5-0.9) H 12/31/24 16:20 GFR Calculation 14.9 mL/min (90-130) L 12/31/24 16:20 Glucose 89 mg/dL (65-115) 12/31/24 16:20 Calculated Osmolality 286 mOsm/kg (285-295) 12/31/24 16:20 Calcium 9.3 mg/dL (8.5-10.5) 12/31/24 16:20 Magnesium 2.1 mg/dL (1.7-2.3) 12/31/24 16:20 Total Bilirubin 0.8 mg/dL (0.15-1.2) 12/31/24 16:20 AST 18 U/L (0-32) 12/31/24 16:20 ALT 15 U/L (0-33) 12/31/24 16:20 Alkaline Phosphatase 75 U/L (35-105) 12/31/24 16:20 Troponin T Baseline 39 ng/L (0-10) H 12/31/24 16:20 Troponin T 120 Minute 32.13 ng/L (0-10) H 12/31/24 18:15 Delta Troponin T -6.87 ABS# (0-10) L 12/31/24 18:15 Total Protein 6.6 g/dL (6.6-8.7) 12/31/24 16:20 Albumin 4.1 g/dL (3.5-5.2) 12/31/24 16:20 Globulin 2.5 g/dL (1.3-4.6) 12/31/24 16:20 Lipase 41 U/L (13-60) 12/31/24 16:20 All radiology interpretation(s) finalized by discharge Discharge Plan Discharge Patient Disposition: Home Clinical Impression: Chest pain Condition: Stable Prescriptions: No Action Eliquis 5 mg tablet 5 mg PO BID dorzolamide 2 % drops 1 drp ophthalmic (eye) TID metoprolol tartrate 25 mg tablet 25 mg PO BID atorvastatin [Lipitor] 40 mg tablet 40 mg PO DAILY amiodarone 200 mg tablet 200 mg PO DAILY ondansetron 8 mg tablet,disintegrating 4 - 8 mg PO Q6H PRN (Reason: Nausea And Vomiting) spironolactone 25 mg tablet 25 mg PO DAILY levothyroxine 75 mcg tablet 75 mcg PO DAILY furosemide 20 mg tablet 20 mg PO TID latanoprost 0.005 % drops 1 drp ophthalmic (eye) QPM hydrocodone-acetaminophen 7.5-325 mg tablet 1 tab PO TID PRN (Reason: Pain) ferrous gluconate 324 mg (38 mg iron) tablet 324 mg PO DAILY Trelegy Ellipta 200-62.5-25 mcg blister with device 1 inh INHALATION DAILY diltiazem HCl [Tiadylt ER] 360 mg capsule,extended release 24 hr 360 mg PO DAILY pantoprazole 40 mg tablet,delayed release (DR/EC) 40 mg PO DAILY Discharge Orders: Discharge ED (Routine); Ordered 12/31/24 Ordered By: Nargis Polk Referrals: Mega Martinez MD [Primary Care Provider, [facility]] Discharge Diet: Advance as tolerated Discharge Activity: Resume usual activity Patient Instructions: Chest Pain (ED) Print Language: Kiswahili Coding Level of Care Code ED Translation Director for Jordan Espinoza
[2024-12-31] MEDS: HYDROcodone-acetaminophen 5-325 mg Tablet 1 TAB PO (16:45)
[2024-12-31 16:55] LABS: Alanine Aminotransferase 15 U/L (0-33); Albumin Level 4.1 g/dL (3.5-5.2); Alkaline Phosphatase 75 U/L (35-105); Anion Gap 25.0 (5-19); Aspartate Amino Transferase 18 U/L (0-32); Blood Urea Nitrogen 53 mg/dL (8-23); Calcium 9.3 mg/dL (8.5-10.5); Carbon Dioxide 16 mmol/L (22-29); Chloride 93 mmol/L (98-107); Creatinine Clr Calc Pharmacy 16.1404; Globulin 2.5 g/dL (1.3-4.6); Glucose 89 mg/dL (65-115); Lipase 41 U/L (13-60); Osmolality Calculated 286 mOsm/kg (285-295); Potassium 3.0 mmol/L (3.5-5.1); Sodium 131 mmol/L (136-145); Total Protein 6.6 g/dL (6.6-8.7)
[2024-12-31 17:05] LABS: Troponin(5th) Baseline 39 ng/L (0-10)
[2024-12-31 17:18] LABS: Magnesium 2.1 mg/dL (1.7-2.3)
--- NOTE | 2024-12-31 18:00 | ECG_ITS ---
[facility] Date: 2024-12-31 Pat Name: Kaity Ferro Department: Room: Gender: Female Tobacco Acreage Measurer: : 1955 Requested By: Nargis Polk Order Number: [id number] Reading MD: JAIME GASTON Measurements Intervals [place] Rate: 74 P: 0 IN: 0 QRS: 42 QRSD: 117 T: 223 QT: 467 QTc: 519 Interpretive Statements UNCERTAIN IRREGULAR RHYTHM ELECTRONIC VENTRICULAR PACEMAKER -- CONTOUR ANALYSIS BASED ON INTRINSIC RHYTHM LEFT VENTRICULAR HYPERTROPHY AND ST-T CHANGE [VOLTAGE CRITERIA PLUS ST/T ABNORMALITY] Compared to ECG 12/31/2024 16:07:05 Ectopic atrial rhythm no longer present ST (T wave) deviation still present Electronically Signed On 01-03-2025 22:23:44 CDT by JAIME GASTON [email or web address]
[2024-12-31 19:17] LABS: Troponin 5 2HR 32.13 ng/L (0-10)
[2024-12-31 19:18] LABS: Troponin 5 2HR Delta -6.87 ABS# (0-10)
== END 2024-12-31 19:39 | disposition home or self-care (01) ==
PROVIDERS: Emergency Provider Emergency Medicine; PCP Family Medicine
DX: R07.9 Chest pain, unspecified (principal); Z79.01 Long term (current) use of anticoagulants; Z72.0 Tobacco use; I10 Essential (primary) hypertension; Z85.841 Personal history of malignant neoplasm of brain
CPT/HCPCS: 36415; 71045; 80053; 83690; 83735; 84484; 85025; 93005; 96360; 99285; J7030; J9999

== ENCOUNTER → 2025-01-22 11:52 | Outpatient (BNVA) | payer MEDICARE, SELFPAY | PROVIDERS: PCP Family Medicine; Visit Provider Specialist | DX: G93.40 Encephalopathy, unspecified (principal); G31.83 Neurocognitive disorder with Lewy bodies; F02.80 Dementia in other diseases classified elsewhere, unspecified severity, without behavioral disturbance, psychotic disturbance, mood disturbance, and anxiety; R48.2 Apraxia | CPT/HCPCS: 36415; 82542; 83520; 99205 ==

== ENCOUNTER → 2025-01-31 15:07 | Outpatient (BNVA) | payer MEDICARE, SELFPAY | PROVIDERS: PCP Family Medicine; Visit Provider Internal Medicine | DX: I48.91 Unspecified atrial fibrillation (principal); Z79.01 Long term (current) use of anticoagulants; I10 Essential (primary) hypertension; Z95.0 Presence of cardiac pacemaker; F17.200 Nicotine dependence, unspecified, uncomplicated | CPT/HCPCS: 99214 ==

== ENCOUNTER → 2025-02-12 14:48 | Outpatient (BNVA) | payer MEDICARE, SELFPAY | PROVIDERS: PCP Family Medicine; Visit Provider Podiatrist Foot & Ankle Surgery | DX: M79.671 Pain in right foot (principal); M79.672 Pain in left foot; I73.9 Peripheral vascular disease, unspecified; L60.3 Nail dystrophy; L84 Corns and callosities; G57.63 Lesion of plantar nerve, bilateral lower limbs | CPT/HCPCS: 11055; 11721; 73630; 99213 ==

== ENCOUNTER 2025-02-17 17:17 | Emergency (ER) | payer MEDICARE, SELFPAY ==
--- OUTSIDE RECORDS SUMMARY | 2025-02-17 17:27 | XMS_ITS | Encounter Summary ---
Author Organization [facility] Address [address] [place] [address] Care Team Providers Care Alignment Technician Name Role Phone Unavailable Primary Care Provider Unavailabl e Encounter Details Date Type Department Care Team (Latest Contact Info) Description 03/30/2001 Outpatient Historical [facility] Prashanth Hernandez MD NO ADDRESS ON FILE Chronic pancreatitis (CMS/HCC) (Primary Dx) Social History Tobacco Use Types Packs/Day Years Used Date Smoking Tobacco: Never Assessed Comments Unknown Sex and Gender Information Value Date Recorded Sex Assigned at Not on file 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
--- OUTSIDE RECORDS SUMMARY | 2025-02-17 17:27 | XMS_ITS | Encounter Summary ---
Author Organization [facility] Address [address] [place] [address] Care Team Providers Care Wax Pumper Name Role Phone Unavailable Primary Care Provider Unavailabl e Encounter Details Date Type Department Care Team (Latest Contact Info) Description 06/13/2001 Outpatient Historical [facility] OBGYN-White [place] Finney [address] [place] [address] Obed Moore MD NO ADDRESS ON FILE ABDOMINAL PAIN GENERALIZED (Primary Dx) Social History Tobacco Use Types Packs/Day Years Used Date Smoking Tobacco: Never Assessed Comments Unknown Sex and Gender Information Value Date Recorded Sex Assigned at Not on file 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
--- OUTSIDE RECORDS SUMMARY | 2025-02-17 17:27 | XMS_ITS | Patient Health Record ---
Author Organization [facility] Address [address] [place] [address] Care Team Providers Care Kiln Stoker Name Role Phone Mega Martinez MD Primary Care Provider Anyi Bills Allergies Allergen (clinical drug ingredient) Drug/Non Drug Allergy documented on EMR Reaction Allergy Type Onset Date Status povidone-iodine Betadine Unknown Drug Allergy A ctive [place] Flavor Unknown Drug Allergy Act ivelisse Penicillin Unknown Drug Allergy Active Results Component Value Reference Range Flag Notes Urine Drug Screen (cup read) - [id number] Reviewed date:12/18/2024 04:22:43 PM Interpretation: Performing Lab: Notes/Report: OPI + OXY + Urine Confirmation Panel (in strument) - [id number] Reviewed date:12/26/2024 05:23:35 PM Interpretation: Performing Lab: [...] Last Name Juan Referring Provider Speciality Family Med icine Referred Organization [facility] Referred Provider Alice Bryant Referred Address [address],[facility],[place],[address], Referred Provider Specialty Pain Medicin e General Notes Briana Ramirez /08/2023 03:51:37 PM >Patient has [facility] and it is not accepted Referral Priority Routine Reason low back pain Diagnosis 1 Chronic pain syndrom e (G89.4) Referring Provider First Name Mega Referring Provider Last Name Juan Referring Provider Speciality Family Med icinicky Referred Organization [facility] Referred Provider Alice Bryant Referred Address [address],[facility],[place],[address], Referred Provider Specialty Pain Medicin e General Notes Cindy Zamudio 0 10/24/2024 01:50:05 PM >ATC. Number not accepting messages., Ana Lilia Corcoran 11/07/2024 02:29:26 PM >returned npp, scheduled pt Referral Priority Routine Reason PT for low back pain Diagnosis 1 Low back pain (M54.5 0) Referral Organization [facility] Referring Provider First Name Anyi Referring Provider Last Name Vicki Marcus Referring Provider Speciality Pain Medic ine Referred Provider [facility] Referred Provider Specialty Preventive M edicine Referral Priority Routine Medications Medication SIG (Take, Route, Frequency, Duration) Notes Start Date End Date Status HYDROcodone-Acetaminophe n 7.5-325 MG Tablet 1 tablet as needed Orally every 6 hrs Active Pantoprazole Sodium Active HYDROcodone-Acetaminophe n 7.5-325 MG Tablet 1 tablet as needed Orally every 4-6 hrs; Duration: 28 days As needed not to exceed 2 per day fill 01/29/25 12/19/2024 02/26/2025 Active Ferrous Gluconate Ac tive Latanoprost Active Eliquis 5 MG Tablet as directed Orally Active Spironolactone Activ e Trelegy Ellipta Acti ve Metoprolol Succinate Active Dorzolamide HCl Acti ve Tiadylt ER 360 MG Capsule Extended Release 24 Hour 1 capsule Orally Once a day Active Social History Tobacco Use: Social History Observation Description Date Details (start date - stop date) Current Smoker NA - NA Social History Tobacco Use: Social Info Question Answer Notes Tobacco Control (Standard) Tobacco use: Current smoker How many cigarettes a day do you smoke? 6-10 Additional Details Category Social Info Options Details Miscellaneous: Sexually active: no Sexual abuse: no Drugs/Alcohol: Do you smoke marijuana? De nies Do you drink alcohol? No Problems Problem Type SNOMED Code ICD Code Onset Dates Problem Status W/U Status Risk Notes Problem Chronic pain syndrome (354711751) Chronic pain syndrome (G89.4) Active confirmed Problem Paroxysmal atrial fibrillation (261767737) Paroxysmal atrial fibrillation (I48.0) Active confirmed Problem Lumbosacral spondylosis without myelopathy (07465838) Spondylosis of lumbosacral region without myelopathy or radiculopathy (M47.817) Active confirmed Problem Degenerative disorder of macula (699337178) Macular degeneration, unspecified laterality, unspecified type (H35.30) Active confirmed Problem History of myocardial infarction (680483895) History of myocardial infarction (I25.2) Active confirmed Problem Myalgia (68640176) Myalgia (M79.10) Active conf irmed Problem Lumbosacral radiculopathy (7158607) Lumbosacral radiculopathy (M54.17) Active confirmed Problem High risk drug monitoring status (495862669) Chronic prescription opiate use (Z79.891) Active confirmed Problem Long-term current use of anticoagulant (722530180) Anticoagulated (Z79.01) Active confirmed Problem Nephrosclerosis (16814768) 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) Active confirmed Encounters Encounter Location Date Provider Diagnosis [facility] [place] [address] [place] [address] 12/18/2024 Anyi rankin Chronic pain syndrome G89.4 ; Lumbosacral spondylosis with radiculopathy M47.27 ; Myalgia M79.10 ; Atrophic kidney N26.1 ; Paroxysmal atrial fibrillation I48.0 ; Macular degeneration, unspecified laterality, unspecified type H35.30 ; History of myocardial infarction I25.2 ; Chronic prescription opiate use Z79.891 ; Anticoagulated Z79.01 ; Spondylosis of lumbosacral region without myelopathy or radiculopathy M47.817 and Lumbosacral radiculopathy M54.17 [facility] [address] [place] [address] [place], [place] [address] 01/07/2025 Anyi rankin Chronic pain syndrome G89.4 Assessments Encounter Date Diagnosis (ICD Code) Assessment [...] spondylosis with radiculopathy (ICD-10 - M47.27) a 01/07/2025 Chronic pain syndrome (ICD-10 - G89.4) 12/18/2024 Myalgia (ICD-10 - M79.10) a 12/18/2024 [...] radiculopathy (ICD-10 - M54.17) a 12/18/2024 Other Elise Marshall, am scribing for Dr. Burt. Rolando, Dr. Burt, personally performed the services described [...] Name Order Date Lumbosacral Spine Comp w/ Bending-[id number] 12/18/2024 Next Appt Details Provider Name:Anyi Garcia Marge, 02/26/2025 10:40:00 AM, [address] [place], [address], Insurance Providers Payer Name Payer Address Payer Phone Subscriber Number Group Number Insured Name Patient Relationship to Insured Coverage Start Date Coverage End Date [facility] Medicare Replacement [address] [place] [address] [phone] [id number] Kaity Terry Self - patient is the insured Out of Network [facility] Medicare Replacement [address] [address] [place] [address] [id number] Kaity Terry Self - patient is the insured Medical (General) History Medical History History ICD Code Problem:Obesity (disorder) , Status :: A ctive Heart Disease Heart attack Measles/Mumps/Rubella bronchitis glaucoma migraine headaches stroke Depression Cancer Arthritis Thyroid disease Bleeding disorders/Blood thinners Surgical History Surgery Date(Month/Year) Liver surgery 2017 gall bladder removal 2014
--- OUTSIDE RECORDS SUMMARY | 2025-02-17 17:27 | XMS_ITS | Encounter Summary ---
Author Organization [facility] Address [address] [place] [address] Care Team Providers Care Customs Verifier Name Role Phone Unavailable Primary Care Provider Unavailabl e Encounter Details Date Type Department Care Team (Latest Contact Info) Description 08/16/2001 Outpatient Historical [facility] Endocrinology-Dwight h Osmar [place] [address] [place] [address] Noemí Goddard MD [address] [place] [address] HYPOTHYROIDISM NOS (Primary Dx); GOITER NOS Social History Tobacco Use Types Packs/Day Years Used Date Smoking Tobacco: Never Assessed Comments Unknown Sex and Gender Information Value Date Recorded Sex Assigned at Not on file Legal 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
--- OUTSIDE RECORDS SUMMARY | 2025-02-17 17:27 | XMS_ITS | Encounter Summary ---
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
--- OUTSIDE RECORDS SUMMARY | 2025-02-17 17:27 | XMS_ITS | Clinical Summary ---
Author Organization [facility] Address [address] Attn: [place] [address] Care Team Providers Care Executive Chairman Name Role Phone Unavailable Primary Care Provider Unavailabl e Encounters Date Type Department Care Team Description 01/24/2025 Abstract [facility] Neurosurgery [address] [place] [address] Edgar May MD from Last 3 Months Immunizations Immunization Administration [...] on file Legal Sex Female 10:29 AM MODEL ARTISTS' Gender Identity Not on file Sexual Orientation [...]
--- OUTSIDE RECORDS SUMMARY | 2025-02-17 17:27 | XMS_ITS | Encounter Summary ---
Author Organization [facility] Address [address] [place] [address] Care Team Providers Care Spine Surgeon Name Role Phone Unavailable Primary Care Provider Unavailabl e Encounter Details Date Type Department Care Team (Latest Contact Info) Description 03/20/[address] 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
--- OUTSIDE RECORDS SUMMARY | 2025-02-17 17:27 | XMS_ITS | Encounter Summary ---
Author Organization [facility] Address [address] [place] [address] Care Team Providers Care Winery Worker Name Role Phone Unavailable Primary Care Provider Unavailabl e Encounter Details Date Type Department Care Team (Latest Contact Info) Description 04/11/2001 Outpatient Historical [facility] OBGYN-White [place] Tr[place] [address] [place] [address] Obed Moore MD NO ADDRESS ON FILE ABDOMINAL PAIN GENERALIZED (Primary Dx); FEMALE GENITAL SYMPTOMS NOS Social History Tobacco Use Types Packs/Day Years Used Date Smoking Tobacco: Never Assessed Comments Unknown Sex and Gender Information Value Date Recorded Sex Assigned at Not on file 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
--- OUTSIDE RECORDS SUMMARY | 2025-02-17 17:27 | XMS_ITS | Encounter Summary ---
Author Organization [facility] Address [address] 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
--- OUTSIDE RECORDS SUMMARY | 2025-02-17 17:27 | XMS_ITS | Encounter Summary ---
Author Organization [facility] Address [address] [place] [address] Care Team Providers Care Picket Labor Union Name Role Phone Unavailable Primary Care Provider Unavailabl e Encounter Details Date Type Department Care Team (Latest Contact Info) Description 06/13/2001 Outpatient Historical [facility] Imaging Services-Christopher Prasad [place] [address] [place] [address] Obed Moore MD NO ADDRESS ON FILE FEMALE GENITAL SYMPTOMS NOS (Primary Dx) Social History Tobacco Use Types Packs/Day Years Used Date Smoking Tobacco: Never Assessed Comments Unknown Sex and Gender Information Value Date Recorded Sex Assigned at Not on file Legal 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
--- OUTSIDE RECORDS SUMMARY | 2025-02-17 17:27 | XMS_ITS | Encounter Summary ---
Author Organization [facility] Address [address] [place] [address] Care Team Providers Care Vocational Rehabilitation Supervisor Name Role Phone Unavailable Primary Care Provider Unavailabl e Encounter Details Date Type Department Care Team (Late st Contact Info) Description 04/11/2001 Outpatient Historical [facility] Christopher Prasad [place] [address] [place] [id number] Katelin Ortiz MD NO ADDRESS ON FILE SCREENING MAMM-MAILG NEOPL-OTHER (Primary Dx) Social History Tobacco Use Types Packs/Day Years Used Date Smoking Tobacco: Never Assessed Comments Unknown Sex and Gender Information Value Date Recorded Sex Assigned at Not on file 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
--- OUTSIDE RECORDS SUMMARY | 2025-02-17 17:27 | XMS_ITS | Encounter Summary ---
Author Organization [facility] Address [address] [place] [address] Care Team Providers Care Lead Accountant Name Role Phone Unavailable Primary Care Provider Unavailabl e Encounter Details Date Type Department Care Team (Late st Contact Info) Description 06/13/2001 Outpatient Historical [facility] OBGYN-Christopher Olsonnn [place] [address] [place] [address] Social History Tobacco Use Types Packs/Day Years Used Date Smoking Tobacco: Never Assessed Comments Unknown Sex and Gender Information Value Date Recorded Sex Assigned at Not on file 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
--- OUTSIDE RECORDS SUMMARY | 2025-02-17 17:27 | XMS_ITS | Clinical Summary ---
Author Organization [facility] Address [address] [place]: [place] [id number] Care Team Providers Care Knife Changer Name Role Phone Unavailable Primary Care Provider [...] on file Legal Sex Female 4:28 AM CELLULOID TRIMMER Gender Identity Not on file Sexual Orientation [...]
--- OUTSIDE RECORDS SUMMARY | 2025-02-17 17:27 | XMS_ITS | Encounter Summary ---
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
[2025-02-17 17:28] VITALS: BP 156/98; PULSE 84; RESP 17; TEMP 36.7; O2SAT 88; BMI 21.6
--- NOTE | 2025-02-17 18:03 | W.ED.ANIMALB ---
HPI - Animal Bite General: Chief Complaint: Animal Bite Stated Complaint: Dog bite Time Seen by Provider: 02/17/25 17:18 Source: patient Mode of arrival: ambulatory Limitations: no limitations History of Present Illness: Patient is a 69-year-old female who presents the emergency department complaining of dog bite to right hand that happened a week ago. The dog was her daughters, it is a 3-month-old puppy and though vaccinations are not up-to-date due to the age it is being monitored and there is no concern for being exposed to rabies. She has not been running fevers, no nausea/vomiting, no red streaking, no severe pain. Her vitals are stable on arrival, states that she is supposed be wearing 2 L of oxygen but has not been doing so because she wants to keep smoking. She has been cleansing with hydrogen peroxide. Tetanus not up-to-date. No other symptoms at this time. Associated symptoms: Deny chills, fever(s) or headache(s) Related Data Home Medications ?Medication ?Instructions ?Recorded ?Confirmed dorzolamide 2 % eye drops 1 drp ophthalmic (eye) TID 04/20/21 02/12/25 ferrous gluconate 324 mg (38 mg 324 mg PO DAILY 04/20/24 02/12/25 iron) tablet fluticasone fur. 200 mcg-umeclid 1 inh inhalation DAILY 04/20/24 02/12/25 62.5 mcg-vilant 25 mcg inhalat.powder (Trelegy Ellipta) hydrocodone 7.5 mg-acetaminophen 1 tab PO TID PRN Pain 04/20/24 02/12/25 325 mg tablet latanoprost 0.005 % eye drops 1 drp ophthalmic (eye) QPM 04/20/24 02/12/25 amiodarone 200 mg tablet 200 mg PO DAILY 07/31/24 02/12/25 atorvastatin 40 mg tablet (Lipitor) 40 mg PO DAILY 07/31/24 02/12/25 metoprolol tartrate 25 mg tablet 25 mg PO BID 07/31/24 02/12/25 ondansetron 8 mg disintegrating 4 - 8 mg PO Q6H PRN Nausea And 07/31/24 02/12/25 tablet Vomiting pantoprazole 40 mg tablet,delayed 40 mg PO DAILY 09/01/24 02/12/25 release furosemide 20 mg tablet 20 mg PO TID 10/05/24 02/12/25 levothyroxine 75 mcg tablet 75 mcg PO DAILY 10/05/24 02/12/25 apixaban 5 mg tablet (Eliquis) 5 mg PO BID 01/31/25 02/12/25 linaclotide 72 mcg capsule 72 mcg PO DAILY 01/31/25 02/12/25 (Linzess) potassium chloride 10 mEq oral 10 meq PO DAILY 01/31/25 02/12/25 packet spironolactone 25 mg tablet 50 mg PO DAILY 01/31/25 02/12/25 Previous Rx's ?Medication ?Instructions ?Recorded memantine 10 mg tablet (Namenda) 10 mg PO BID 90 days #180 tabs 01/24/25 memantine 5 mg-10 mg tablets in a See Rx Instructions PO PER PKG DIR 01/24/25 dose pack #49 ea quetiapine 25 mg tablet (Seroquel) 25 mg PO DAILY #90 tabs 01/24/25 doxycycline hyclate 100 mg tablet 100 mg PO BID 7 days #14 tabs 02/17/25 Allergies Allergy/AdvReac Type Severity Reaction Status Date / Time orange juice Allergy Intermediate ADR-Vomitin Verified 02/12/25 15:26 g amoxicillin Allergy unk Verified 02/12/25 15:26 buspirone Allergy unk Verified 02/12/25 15:26 hydralazine Allergy coughing Verified 02/12/25 15:26 and nausea Penicillins Allergy shortness Verified 02/12/25 15:26 of breath povidone-iodine (From Allergy unk Verified 02/12/25 15:26 Betadine) soap (From Betadine) Allergy unk Verified 02/12/25 15:26 [id number]-[id number] Reductase Allergy FLu like Verified 02/12/25 15:26 Inhibitor (Qhrtafu-Wqm-Sub symptoms Reductase Inhibitor) carvedilol AdvReac Severe cough Verified 02/12/25 15:26 amlodipine AdvReac BLE edema Verified 02/12/25 15:26 valsartan AdvReac unknown Verified 02/12/25 15:26 Review of Systems General: Reports: 10 or more systems reviewed and unremarkable except in HPI and below Const: Denies: fever(s) or chills Card: Denies: chest pain Resp: Denies: dyspnea GI: Denies: abdominal pain, nausea, vomiting or diarrhea Musc: Denies: extremity pain or joint pain Skin/Breast: Reports: lesions (dog bite rt hand); Denies: rash, skin pain, skin tenderness or new lesions Neuro: Denies: headache(s) PFSH ED PFSH: Medical History Carmen metatarsalgia, bilateral Chest pain Peripheral neuropathy Glaucoma Herpes genitalis 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 Brother CAD (coronary artery disease) Brother , 2 brothers of heart disease CAD (coronary artery disease) Denies family history of Diabetes Clotting disorder Dementia Hyperlipidemia Psychiatric illness Chronic kidney disease (CKD) Suicide Anesthesia complication Bleeding disorder Family history of premature coronary artery disease Lung disease Cancer Hypertension Stroke Social History Smoking and tobacco/nicotine status: current every day tobacco/nicotine user Alcohol intake: never Substance/Drug Use: never Physical Exam Const: COMMON NORMALS: no acute distress, average body habitus, patient oriented x3, no limitations, healthy appearing, alert and well nourished HENMT: COMMON NORMALS: normocephalic and atraumatic HEAD & SCALP: normocephalic and atraumatic Neck/C-Spine: COMMON NORMALS: full ROM, no lymphadenopathy, supple and no meningeal signs Resp: COMMON NORMALS: normal respiratory effort, No use of accessory muscles and clear to auscultation bilaterally AUSCULTATION: clear to auscultation bilaterally Cardio: COMMON NORMALS: regular rate and regular rhythm RATE: regular rate RHYTHM: regular rhythm Extremity: COMMON NORMALS: full ROM and capillary refill normal Neuro: COMMON NORMALS: patient oriented x3, moves all extremities, no focal motor deficits and no sensory deficits noted SENSORIUM/ORIENTATION: Yes alert MENINGEAL SIGNS: Yes no meningeal signs Skin: COMMON NORMALS: turgor normal NARRATIVE SKIN EXAM: Puncture wound to dorsum of right hand with no active drainage. No significant erythema induration or red streaking. GENERAL SKIN EXAM: turgor normal Course Vital Signs: Vital signs: Vital Signs Temperature 98.1 F 02/17/25 17:28 Pulse Rate 84 02/17/25 17:28 Respiratory Rate 17 02/17/25 17:28 Blood Pressure 156/98 02/17/25 17:28 Pulse Oximetry 88 L 02/17/25 17:28 Oxygen Delivery Me thod Room Air 02/17/25 17:28 MDM - Animal Bite Medical Decision Making Patient presenting with dog bite to right hand, appears not overtly infected but due to mechanism of injury and placement of the bite will start on doxycycline and her tetanus is also updated. Patient is family owned and no vaccination status not up-to-date due to it being a puppy, no concern for rabies and it is able to be monitored so no vaccination series at this time. Patient is supposed be on 2 L of oxygen, has not been doing so due to wanting to keep smoking but I informed her she needs to wear oxygen and she states she will set it up when she gets home. There is no fever, nausea/vomiting, or any other signs of systemic illness so she will be allowed discharge home. No radiology studies performed this visit Discharge Plan Discharge Patient Disposition: Home Clinical Impression: Dog bite of right hand Qualifiers: Encounter type: initial encounter Qualified Code(s): S61.451A - Open bite of right hand, initial encounter Condition: Stable Prescriptions: New doxycycline hyclate 100 mg tablet 100 mg PO BID 7 Days Qty: 14 0RF No Action dorzolamide 2 % drops 1 drp ophthalmic (eye) TID metoprolol tartrate 25 mg tablet 25 mg PO BID atorvastatin [Lipitor] 40 mg tablet 40 mg PO DAILY amiodarone 200 mg tablet 200 mg PO DAILY ondansetron 8 mg tablet,disintegrating 4 - 8 mg PO Q6H PRN (Reason: Nausea And Vomiting) spironolactone 25 mg tablet 50 mg PO DAILY Eliquis 5 mg tablet 5 mg PO BID Linzess 72 mcg capsule 72 mcg PO DAILY potassium chloride 10 mEq packet 10 meq PO DAILY memantine [Namenda] 10 mg tablet 10 mg PO BID 90 Days Qty: 180 3RF Rx Instructions: start after starter pack memantine 5-10 mg tablets,dose pack See Rx Instructions PO PER PKG DIR Qty: 49 0RF Rx Instructions: PO PER PKG DIR quetiapine [Seroquel] 25 mg tablet 25 mg PO DAILY Qty: 90 3RF Rx Instructions: at bed time levothyroxine 75 mcg tablet 75 mcg PO DAILY furosemide 20 mg tablet 20 mg PO TID latanoprost 0.005 % drops 1 drp ophthalmic (eye) QPM hydrocodone-acetaminophen 7.5-325 mg tablet 1 tab PO TID PRN (Reason: Pain) ferrous gluconate 324 mg (38 mg iron) tablet 324 mg PO DAILY Trelegy Ellipta 200-62.5-25 mcg blister with device 1 inh INHALATION DAILY pantoprazole 40 mg tablet,delayed release (DR/EC) 40 mg PO DAILY Discharge Orders: Discharge ED (Routine); Ordered 02/17/25 Ordered By: Curt Roach Referrals: Mega Martinez MD [Primary Care Provider, [facility]] Patient Instructions: Patient Portal & Leah Instructions Activity Restrictions/Additional Instructions: Your tetanus was updated today, 02/17/2025. Please take doxycycline as prescribed. Cleanse the wound with warm soap and water, you may apply topical Polysporin. Please monitor for any signs of infection and return to the emergency department. Watch for any fever, nausea/vomiting, or red streaking. No need to do rabies vaccination series due to custody of the dog. Print Language: Croatian Coding Level of Care Code ED Chuck Wagon Driver for Jordan Espinoza
[2025-02-17 18:21] VITALS: BP 190/122; PULSE 81; O2SAT 92
[2025-02-17] MEDS: tetanus-dipt-pertussis 0.5 mL SDV IM (18:25)
== END 2025-02-17 18:26 | disposition home or self-care (01) ==
PROVIDERS: Emergency Provider Physician Assistant; PCP Family Medicine
DX: S61.451A Open bite of right hand, initial encounter (principal); Z79.01 Long term (current) use of anticoagulants; W54.0XXA Bitten by dog, initial encounter; Z72.0 Tobacco use; I10 Essential (primary) hypertension; Z85.841 Personal history of malignant neoplasm of brain; Z85.89 Personal history of malignant neoplasm of other organs and systems
CPT/HCPCS: 90471; 90715; 99283

== ENCOUNTER 2025-04-08 16:56 | Emergency (ER) | payer MEDICARE, SELFPAY ==
--- OUTSIDE RECORDS SUMMARY | 2025-04-08 17:02 | XMS_ITS | Data Portability ---
Author Organization BETHANY Rose [facility] Siria Sims [facility] Address [address] [facility] [address] [place] [address] Care Team Providers Care Flat Bed Knitter Name Role Phone MEGA MARTINEZ Primary Care Provider [phone] Assessment Encounter Date Assessment Date Assessment LastModified by Organization Details LastModified Time 11/12/2024 11/12/2024 feared pyloric stricture as the cause of her GI sx's. i cannot fix that. I need her to see Gi. we will call the office and see what records they still feel they need to help Tez and ana rosa everything we can. also concerning is that she has a hx of cancer of the gallbladder. see mrcp results. significant water weight decrease to er if light headed dizzy weak or low bp or pain becomes severe she has not started potassium yet. [email or web address] Not available 11/12/2024 13:51:09 01/01/2025 01/01/2025 due to gi bleeding hold eliquis until we talk on 01/22. go to er if sx's of stroke if bleeding persists or worsens go to er hgb normal yesterday Not available 01/01/2025 16:04:41 Plan of Treatment Reminders Order Date Submit Date Provider Last Modified By Organization Details Last Modified Time Details Appointments None recorded. Lab urinalysis, complete 2024 025 [email or web address] [facility], [address], [place], [address], 16:21:43 culture, urine 2024 025 [employer] Manzana [facility], [address] [facility] [address], [address], [place], [address], 03:21:17 CBC 2024 025 [facility], [address] [facility] [address], [place], [address], 16:19:32 unlisted lab - peripheral blood smear review 2024 025 [employer] Manzana [facility], [address] [facility] , [address], [place], [address], 16:34:34 thyrotropin , QN, serum or plasma 2024 025 [facility], [address], [place], [address], 17:44:22 CMP, serum or plasma 2024 025 [facility], [address], [place], [address], 5 16:40:37 Referral neurologist referral - dr ferrell [facility] 2024 025 [email or web address] [facility], [address], [address], [place], [address], 10:39:13 Procedures electroence phalogram (EEG); including recording awake and asleep (PROC) 2024 025 [email or web address] 2 [facility], [address], [place], [address], 12:53:19 Surgeries None recorded. Imaging MRI, brain, w/wo contrast - with pacer monitoring 2024 025 [email or web address] [facility] (Schedluing & Pre Registration) , [address], [place], [address], 12:13:37 Medication Orders Linzess 145 mcg capsule 2024 025 BJORN [id number], [address] [facility] [address], [place], [address], 14:58:39 ondansetron HCl 8 mg tablet 2024 025 [email or web address] [id number], [address] [facility] [address], [place], [address], 13:43:32 Patient TargetsNo targets recorded. Patient InstructionsNo instructions recorded. 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 dr ferrell [facility] Referring Physician: Mega Martinez, Family Medicine, Encounter Date: 12/12/2024 Results Created Date Observation Date Name Description Value Unit Range Abnormal Flag Note LastModifiedBy Organization Detail LastModifiedTime 10/12/1910/11/2024 BMP (FEMA LE) glucose 84.0 mg/dL 60.0-9 9.0 Not Available [facility] [address] [facility] [address], [place], [address], 10/11/2024 15:12:55 10/12/1910/11/2024 BMP (FEMA LE) BUN (blood urea nitrogen) 16.0 mg/dL 10.0-2 6.0 Not Available [facility] [address] [facility] [address], [place], [address], 10/11/2024 15:12:55 10/12/1910/11/2024 BMP (FEMA LE) creatinine (serum) 1.5 mg/dL 0.4-1. 5 Not Available [facility] [address], [place], [address], 10/11/2024 15:12:55 10/12/19 25 10/11/2024 BMP (FEMA LE) BUN/creatini ne ratio 10.67 ratio Not Available [facility] [address] [facility], [place], [address], 10/11/2024 15:12:55 10/12/19 25 10/11/2024 BMP (FEMA LE) calcium 9.8 mg/dL 8.4-10 .5 Not Available [facility] [address] [facility] [address], [place], [address], 10/11/2024 15:12:55 10/12/19 25 10/11/2024 BMP (FEMA LE) sodium 138.0 mmol/ L 136.0- 145.0 Not Available [facility] [address] [facility] [address], [place], [address], 10/11/2024 15:12:55 10/12/19 25 10/11/2024 BMP (FEMA LE) potassium 6.0 mmol/ L 3.5-5. 1 high Not Available [facility] [address] [facility] [address], [place], [address], 10/11/2024 15:12:55 10/12/19 25 10/11/2024 BMP (FEMA LE) chloride 104.0 mmol/ L 98.0-1 10.0 normal Not Available [facility] [address] [facility] [address], [place], [address], 10/11/2024 15:12:55 10/12/19 25 10/11/2024 BMP (FEMA LE) C02 23.0 mmol/ L 22.0-3 1.0 Not Available [facility] [address] [facility] [address], [place], [address], 10/11/2024 15:12:55 10/12/19 25 10/11/2024 BMP (FEMA LE) anion gap 11.0 calc Not Available [facility] [address] [facility] [address], [place], [address], 10/11/2024 15:12:55 10/16/19 25 10/15/2024 potas sium, serum or plasm a potassium 4.4 mmol/ L 3.5-5. 1 normal Not Available [facility] ([facility]) [address] [place], [address], 10/12/2024 12:32:37 11/07/19 25 11/06/2024 URINA LYSIS WITH MICRO color YELLOW Not Available [facility] [address] [facility] [address], [place], [address], 11/06/2024 15:16:46 11/07/19 25 11/06/2024 URINA LYSIS WITH MICRO clarity CLEAR Not Available [facility] [address] [facility] [address], [place], [address], 11/06/2024 15:16:46 11/07/19 25 11/06/2024 URINA LYSIS WITH MICRO glu NEGATI VE Not Available [facility] [address] [address], [place], [address], 11/06/2024 15:16:46 11/07/19 25 11/06/2024 URINA LYSIS WITH MICRO bili NEGATI VE Not Available [facility] [address] [facility], [place], [address], 11/06/2024 15:16:46 11/07/19 25 11/06/2024 URINA LYSIS WITH MICRO ket NEGATI VE Not Available [facility] [address] [facility] [address], [address], 11/06/2024 15:16:46 11/07/19 25 11/06/2024 URINA LYSIS WITH MICRO S.g 1.010 1.005- 1.025 Not Available [facility] [address], [place], [address], 11/06/2024 15:16:46 11/07/19 25 11/06/2024 URINA LYSIS WITH MICRO pH 5.5 5.0-7. 0 Not Available [facility] [address], [place], [address], 11/06/2024 15:16:46 11/07/19 25 11/06/2024 URINA LYSIS WITH MICRO pro NEGATI VE Not Available [facility] [address], [place], [address], 11/06/2024 15:16:46 11/07/19 25 11/06/2024 URINA LYSIS WITH MICRO uro 0.2 E.U./D L Not Available [facility] [address], [place], [address], 11/06/2024 15:16:46 11/07/19 25 11/06/2024 URINA LYSIS WITH MICRO nit NEGATI VE Not Available [facility] [address], [place], [address], 11/06/2024 15:16:46 11/07/19 25 11/06/2024 URINA LYSIS WITH MICRO blo NEGATI VE Not Available [facility] [address], [place], [address], 11/06/2024 15:16:46 11/07/19 25 11/06/2024 URINA LYSIS WITH MICRO lazaro NEGATI VE Not Available [facility] [address], [place], [address], 11/06/2024 15:16:46 11/07/19 25 11/06/2024 URINA LYSIS WITH MICRO WBC 2-3 Not Available [facility] [address] [facility] [address], [place], [address], 11/06/2024 15:16:46 11/07/19 25 11/06/2024 URINA LYSIS WITH MICRO RBC 0-1 Not Available [facility] [address] [facility] [address], [place], [address], 11/06/2024 15:16:46 11/07/19 25 11/06/2024 URINA LYSIS WITH MICRO epi cells 15-18 abnormal Not Available [facility] [address] [facility] [address], [place], [address], 11/06/2024 15:16:46 11/07/19 25 11/06/2024 URINA LYSIS WITH MICRO bacteria TRACE OF MIXED SEBASTIAN abnormal Not Available [facility] [address] [facility] [address], [place], [address], 11/06/2024 15:16:46 11/07/19 25 11/06/2024 URINA LYSIS WITH MICRO other NG Not Available [facility] [address] [facility] [address], [place], [address], 11/06/2024 15:16:46 11/07/19 25 11/07/2024 SURES WAB(R ) ADVAN SUSHANT VAGIN ITIS PLUS, TMA sureswab(R) adv bacterial vaginosis (bv), tma NEGATI VE negati ve normal Not Available [facility] [address] [address] [place], [address], 11/07/2024 11:55:35 11/07/19 25 11/07/2024 SURES WAB(R ) ADVAN SUSHANT VAGIN ITIS PLUS, TMA emir species NOT DETECT ED not detect ed normal Not Available [facility] [address] [place], [address], 11/07/2024 11:55:35 11/07/19 25 11/07/2024 SURES WAB(R ) ADVAN SUSHANT VAGIN ITIS PLUS, TMA emir glabrata NOT DETECT ED not detect ed normal Radha da speci es C. albic ans, C. tropi calis , C. parap nikolas is, and/o r C. dubli ni is can be detec mandeep, but not diffe renti ated, in the Radha da spp. resul t. Not Available [facility] [address], [address], 11/07/2024 11:55:35 11/07/19 25 11/07/2024 SURES WAB(R ) ADVAN SUSHANT VAGIN ITIS PLUS, TMA trichomonas vaginalis (TV), tma NOT DETECT ED not detect ed normal Not Available [address], [address], 11/07/2024 11:55:35 11/07/19 25 11/07/2024 SURES WAB(R ) ADVAN SUSHANT VAGIN ITIS PLUS, TMA chlamydia trachomatis RNA, tma, urogenital NOT DETECT ED not detect ed normal Not Available [address], [address], 11/07/2024 11:55:35 11/07/19 25 11/07/2024 SURES WAB(R ) ADVAN SUSHANT VAGIN ITIS PLUS, TMA neisseria gonorrhoeae RNA, tma, urogenital NOT DETECT ED not detect ed normal For addit ional infor lily gooden refer to https ://ed ucati on.qu lourdes Friendsignia. com/f aq/FA Q154 (This link is being provi ded for infor savanna rosas/ louis higuera only. ) Not Available [facility] [address], [address], 11/07/2024 11:55:35 11/07/19 25 11/07/2024 CULTU RE, URINE , ROUTI NE culture, urine, routine SEE NOTE CULTU RE, URINE , ROUTI NE Micro Numbe r: [id number] Test Statu s: Final Speci men [...] Tube, is recom afua d. Not Available [facility] [address] [place], [address], 11/07/2024 22:17:03 11/08/1911/07/2024 CBC WBC 7.8 x10 4.0-10 .5 Not Available [facility] [address], [address], 11/07/2024 16:19:31 11/08/1911/07/2024 CBC RBC 5.70 x10 3.50-5 .50 high Not Available [facility] [address], [address], 11/07/2024 16:19:31 11/08/1911/07/2024 CBC HGB 17.8 g/dL 12.0-1 6.0 high Not Available [facility] [address] [address], [place], [address], 11/07/2024 16:19:31 11/08/1911/07/2024 CBC HCT 52.2 % 37.0-4 7.0 high Not Available [facility] [address], [address], 11/07/2024 16:19:31 11/08/1911/07/2024 CBC MCV 91.6 fL 80.0-9 9.9 Not Available [facility] [address] [facility], [place], [address], 11/07/2024 16:19:31 11/08/1911/07/2024 CBC MCH 31.1 pg 27.0-3 2.0 Not Available [facility] [address] [facility] [address] [facility], [place], [address], 11/07/2024 16:19:31 11/08/1911/07/2024 CBC MCHC 34.0 g/dL 32.0-3 6.0 Not Available [facility] [address] [facility] [address] [facility], [place], [address], 11/07/2024 16:19:31 11/08/1911/07/2024 CBC RDW 14.9 % 11.5-1 4.5 high Not Available [facility] [address] [facility] [address] [facility], [place], [address], 11/07/2024 16:19:31 11/08/1911/07/2024 CBC plt 201.7 x10 140.0- 451.0 Not Available [facility] [address] [facility] [address] [facility], [place], [address], 11/07/2024 16:19:31 11/08/1911/07/2024 CBC lymphocytes % 28.0 % 20.0-5 0.0 Not Available [facility] [address] [facility] [address] [facility], [place], [address], 11/07/2024 16:19:31 11/08/1911/07/2024 CBC granulcytes % 59.4 % 30.0-7 0.0 Not Available [facility] [address] [facility] [address] [facility], [place], [address], 11/07/2024 16:19:31 11/08/19 25 11/07/2024 CBC monocytes % 11.6 % 2.0-16 .0 Not Available [facility] [address] [facility] [address], [place], [address], 11/07/2024 16:19:31 11/08/19 25 11/07/2024 CBC granulcytes# 4.6 x10 Not Michelle ilable [facility] [address] [facility] [address], [place], [address], 11/07/2024 16:19:31 11/08/1911/07/2024 CBC lymphocytes # 2.2 x10 Not Available [facility] [address] [facility] [address], [place], [address], 11/07/2024 16:19:31 11/08/19 25 11/07/2024 CBC monocytes # 0.9 x10 Not Avai lable [facility] [address] [facility] [address], [place], [address], 11/07/2024 16:19:31 11/08/1911/07/2024 CMP (FEMA LE) glucose 107.0 mg/dL 60.0-9 9.0 high Not Available [facility] [address] [facility], [place], [address], 11/07/2024 16:40:37 11/08/19 25 11/07/2024 CMP (FEMA LE) BUN (blood urea nitrogen) 55.0 mg/dL 10.0-2 6.0 high Not Available [facility] [address] [facility] [address], [place], [address], 11/07/2024 16:40:37 11/08/19 25 11/07/2024 CMP (FEMA LE) creatinine (serum) 2.9 mg/dL 0.4-1. 5 high Not Available [facility] [address], [place], [address], 11/07/2024 16:40:37 11/08/19 25 11/07/2024 CMP (FEMA LE) BUN/creatini ne ratio 18.97 ratio Not Available [facility] [address] [facility], [place], [address], 11/07/2024 16:40:37 11/08/19 25 11/07/2024 CMP (FEMA LE) eGFR calculated 17.1 Not Available [facility] [address] [facility], [place], [address], 11/07/2024 16:40:37 11/08/19 25 11/07/2024 CMP (FEMA LE) total protein 8.1 g/dL 6.0-8. 5 Not Available [facility] [address] [facility], [place], [address], 11/07/2024 16:40:37 11/08/19 25 11/07/2024 CMP (FEMA LE) total bilirubin 1.2 mg/dL 0.2-1. 3 Not Available [facility] [address] [facility], [place], [address], 11/07/2024 16:40:37 11/08/19 25 11/07/2024 CMP (FEMA LE) albumin 4.9 g/dL 3.5-5. 5 Not Available [facility] [address] [facility], [place], [address], 11/07/2024 16:40:37 11/08/19 25 11/07/2024 CMP (FEMA LE) globulin 3.[address] [facility] [address] [facility], [place], [address], 11/07/2024 16:40:37 11/08/19 25 11/07/2024 CMP (FEMA LE) AST (SGOT) 31.0 U/L 0.0-46 .0 Not Available [facility] [address] [facility] [address], [place], [address], 11/07/2024 16:40:37 11/08/19 25 11/07/2024 CMP (FEMA LE) altv (SGPT) 21.0 U/L 13.0-6 9.0 normal Not Available [facility] [address] [facility], [place], [address], 11/07/2024 16:40:37 11/08/19 25 11/07/2024 CMP (FEMA LE) A/G ratio 1.5 ratio Not Available [facility] [address] [address], [place], [address], 11/07/2024 16:40:37 11/08/19 25 11/07/2024 CMP (FEMA LE) ALP phos 73.0 U/L 30.0-1 40.0 normal Not Available [facility] [address] [facility] [address], [place], [address], 11/07/2024 16:40:37 11/08/19 25 11/07/2024 CMP (FEMA LE) calcium 10.3 mg/dL 8.4-10 .5 Not Available [facility] [address] [address], [place], [address], 11/07/2024 16:40:37 11/08/19 25 11/07/2024 CMP (FEMA LE) sodium 136.0 mmol/ L 136.0- 145.0 Not Available [facility] [address] [facility] [address], [place], [address], 11/07/2024 16:40:37 11/08/19 25 11/07/2024 CMP (FEMA LE) potassium 3.3 mmol/ L 3.5-5. 1 low Not Available [facility] [address] [facility] [address], [place], [address], 11/07/2024 16:40:37 11/08/19 25 11/07/2024 CMP (FEMA LE) chloride 99.0 mmol/ L 98.0-1 10.0 normal Not Available [facility] [address] [facility], [place], [address], 11/07/2024 16:40:37 11/08/19 25 11/07/2024 CMP (FEMA LE) C02 26.0 mmol/ L 22.0-3 1.0 Not Available [facility] [address] [facility], [place], [address], 11/07/2024 16:40:37 11/08/19 25 11/07/2024 CMP (FEMA LE) anion gap 11.0 calc Not Available [facility] [address] [facility] [address], [place], [address], 11/07/2024 16:40:37 11/08/19 25 11/07/2024 CMP (FEMA LE) osmolality 295.7 calc Not Available [facility] [address] [facility], [place], [address], 11/07/2024 16:40:37 11/08/19 25 11/07/2024 TSH TSH 1.47 uIU/m L 0.49-3 .82 Not Available [facility] [address] [facility], [place], [address], 11/07/2024 17:44:22 11/08/19 25 11/08/2024 PERIP HERAL BLOOD SMEAR REVIE W peripheral blood smear review Ovalo cytes 1 + Crena mandeep red blood cells 1 + Revie w of the perip heral smear revea ls adequ ate numbe rs of plate lets. Few plate let clump s prese nt. Revie w of perip heral smear confi kristina autom ated resul ts. Not Available [email or web address] [facility] [address] [address] , [place], [address], 11/08/2024 16:34:34 11/13/19 25 11/12/2024 BMP (FEMA LE) glucose 101.0 mg/dL 60.0-9 9.0 high Not Available [facility] [address] [facility], [place], [address], 11/12/2024 13:12:43 11/13/19 25 11/12/2024 BMP (FEMA LE) BUN (blood urea nitrogen) 44.0 mg/dL 10.0-2 6.0 high Not Available [facility] [address] [address], [place], [address], 11/12/2024 13:12:43 11/13/19 25 11/12/2024 BMP (FEMA LE) creatinine (serum) 2.2 mg/dL 0.4-1. 5 high Not Available [facility] [address] [address], [place], [address], 11/12/2024 13:12:43 11/13/19 25 11/12/2024 BMP (FEMA LE) BUN/creatini ne ratio 20.00 ratio Not Available [facility] [address] [address], [place], [address], 11/12/2024 13:12:43 11/13/19 25 11/12/2024 BMP (FEMA LE) calcium 10.4 mg/dL 8.4-10 .5 Not Available [facility] [address] [address], [place], [address], 11/12/2024 13:12:43 11/13/19 25 11/12/2024 BMP (FEMA LE) sodium 134.0 mmol/ L 136.0- 145.0 low Not Available [facility] [address] [facility] [facility] [facility], [place], [address], 11/12/2024 13:12:43 11/13/19 25 11/12/2024 BMP (FEMA LE) potassium 3.4 mmol/ L 3.5-5. 1 low Not Available [facility] [address] [facility], [place], [address], 11/12/2024 13:12:43 11/13/19 25 11/12/2024 BMP (FEMA LE) chloride 100.0 mmol/ L 98.0-1 10.0 normal Not Available [facility] [address] [facility] [address], [place], [address], 11/12/2024 13:12:43 11/13/19 25 11/12/2024 BMP (FEMA LE) C02 23.0 mmol/ L 22.0-3 1.0 Not Available [facility] [address] [facility], [place], [address], 11/12/2024 13:12:43 11/13/19 25 11/12/2024 BMP (FEMA LE) anion gap 11.0 calc Not Available [facility] [address] [facility], [place], [address], 11/12/2024 13:12:43 01/30/20 25 01/29/2025 URINA LYSIS WITH MICRO color YELLOW Not Available [facility] [address] [facility], [place], [address], 01/29/2025 15:32:08 01/30/20 25 01/29/2025 URINA LYSIS WITH MICRO clarity CLEAR Not Available [facility] [address] [facility] [facility] [address] [facility], [place], [address], 01/29/2025 15:32:08 01/30/20 25 01/29/2025 URINA LYSIS WITH MICRO glu NEGATI VE Not Available [facility] [address], [place], [address], 01/29/2025 15:32:08 01/30/20 25 01/29/2025 URINA LYSIS WITH MICRO bili NEGATI VE Not Available [facility] [address], [place], [address], 01/29/2025 15:32:08 01/30/20 25 01/29/2025 URINA LYSIS WITH MICRO ket NEGATI VE Not Available [facility] [address], [place], [address], 01/29/2025 15:32:08 01/30/20 25 01/29/2025 URINA LYSIS WITH MICRO S.g 1.015 1.005- 1.025 Not Available [facility] [address], [place], [address], 01/29/2025 15:32:08 01/30/20 25 01/29/2025 URINA LYSIS WITH MICRO pH 6.0 5.0-7. 0 Not Available [facility] [address], [place], [address], 01/29/2025 15:32:08 01/30/20 25 01/29/2025 URINA LYSIS WITH MICRO pro NEGATI VE Not Available [facility] [address], [place], [address], 01/29/2025 15:32:08 01/30/20 25 01/29/2025 URINA LYSIS WITH MICRO uro 0.2 E.U./D L Not Available [facility] [address], [place], [address], 01/29/2025 15:32:08 01/30/20 25 01/29/2025 URINA LYSIS WITH MICRO nit POSITI VE Not Available [facility] [address] [facility], [place], [address], 01/29/2025 15:32:08 01/30/20 25 01/29/2025 URINA LYSIS WITH MICRO blo TRACE- INTACT Not Available [facility] [address] [facility], [place], [address], 01/29/2025 15:32:08 01/30/20 25 01/29/2025 URINA LYSIS WITH MICRO lazaro 1+ abnormal Not Available [facility] [address] [facility], [place], [address], 01/29/2025 15:32:08 01/30/20 25 01/29/2025 URINA LYSIS WITH MICRO WBC 60-80 abnormal Not Available [facility] [address] [facility], [place], [address], 01/29/2025 15:32:08 01/30/20 25 01/29/2025 URINA LYSIS WITH MICRO RBC NEGATI VE Not Available [facility] [address] [facility], [place], [address], 01/29/2025 15:32:08 01/30/20 25 01/29/2025 URINA LYSIS WITH MICRO epi cells 4-6 Not Available [facility] [address] [facility], [place], [address], 01/29/2025 15:32:08 01/30/20 25 01/29/2025 URINA LYSIS WITH MICRO bacteria TRACE OF MIXED SEBASTIAN abnormal Not Available [facility] [address] [facility], [place], [address], 01/29/2025 15:32:08 01/30/20 25 01/29/2025 URINA LYSIS WITH MICRO other NG Not Available [facility] [address] [facility], [place], [address], 01/29/2025 15:32:08 01/30/20 25 02/01/2025 CULTU RE, URINE , ROUTI NE culture, urine, routine SEE NOTE abnormal CULTU RE, URINE , ROUTI NE Micro Numbe r: [id number] Test Statu s: Final Speci men Sourc e: Urine Speci men Quali ty: Adequ ate Resul t: Great er than 100,0 00 CFU/m L of Enter obact er cloac ae compl ex E. cloac ae ----- ----- ----- - INT RIP AMOX/ CLAVU LANAT E R 8 CEFAZ FLAKITA R 4 1 CEFEP LUIS S <=0.1 2 CEFTA ZIDIM E S <=0.5 CIPRO FLOXA LEONELA S <=0.0 6 GENTA MICIN S <=1 IMIPE NEM S <=0.2 5 LEVOF LOXAC IN S <=0.1 2 MEROP ENEM S <=0.2 5 NITRO FURAN TOIN S <=16 PIP/T AZOBA CTAM S <=4 TRIME THOPR IM/ARANA LFA S <=20 S = Susce ptibl e I = Inter media te R = Resis tant NS = Not susce ptibl e SDD = Susce ptibl e Dose Depen dent * = Not Teste d NR = Not Repor mandeep NN = See Thera py Comme nts THERA PY COMME NTS Note 1: For uncom plica mandeep UTI cause d by E. coli, K. pneum oniae or P. mirab ilis: Cefaz flakita is susce ptibl e if RIP <32 mcg/m L and predi cts susce ptibl e to the oral agent s cefac juan diego, cefdi tessy, cefpo doxim e, cefpr ozil, cefur oxime , cepha lexin and lorac arbef . Not Available [email or web address] [facility] [address] [address], [place], [address], 02/01/2025 03:21:17 10/18/19 25 09/26/2024 polys omnog roxana No observ ation record ed. [address] [facility] [address] [facility], [address], [place], [address], 10/23/2024 12:36:11 11/08/19 25 11/06/2024 XR, knee, 3 view No observ ation record ed. [address] [place], [address], 11/12/2024 13:46:46 12/25/19 25 12/19/2024 polys omnog estrella , titra tion study (PROC ) No observ ation record ed. [address] [place], [address], 12/27/2024 15:56:18 12/25/19 25 12/24/2024 MAMMO , scree morgan, digit al, bilat eral No observ ation record ed. [address] [place], [address], 12/27/2024 15:56:29 01/29/20 25 01/14/2025 MRI, brain , w/wo contr ast No observ ation record ed. [address] Radiology Department [facility] [address] [place], [address], 01/29/2025 14:39:20 Result Notes None recorded. Problems Name Problem SNOMED Code Status Onset Date Resolution Date Notes Provider Name and Address Organization Details Recorded Time Cardiac pacemaker in situ 245542691 Active 2021 medtronic axure [id number] DR01 SAKINA tabares [place] [facility] 4 15:11:44 Atrial fibrillat ion 87032356 Active 2021 BETHANY Jacobs [facility] 4 13:38:34 Hyperlipi demia 26066418 Active 2021 SAKINA AZUL null, [facility] 4 13:39:09 Herpes simplex - other Active 2021 herpes genitalis Mellisa Rios null, [facility] 5 15:25:57 Sensorine ural hearing loss of bilateral ears 115483114 Active 2021 SAKINA AZUL null, [facility] 5 09:19:59 Hypothyro idism 38720472 Active 2021 SAKINA AZUL null, [facility] 4 13:38:54 Benign essential hypertens ion 8492365 Active 2021 SAKINA tabares, [facility] 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 5 12:22:48 Chronic kidney disease stage 3A 622696274 Active 2023 SAKINA tabares, [facility] 5 09:19:59 Hypertrop hic obstructi ve cardiomyo kel 83260545 Active 2023 SAKINA AZUL null, [facility] 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 5 15:25:57 Iron deficienc y 03218995 Active 2023 SAKINA tabares, [facility] 5 09:19:59 Right kidney absent 642569883 Active 2023 SAKINA AZUL null, [facility] 5 09:19:59 Acquired dilation of bile duct 630032415636 9108 Active 2024 Mellisa Rios null, [facility] 5 15:25:57 Stenosis of bile duct 07866507 Active 2024 Mellisa Rios null, [facility] 5 15:25:57 Chronic pancreati tis 169796333 Active 2024 SAKINA AZUL null, [facility] 5 09:19:59 Glaucoma 15917600 Active 2024 SAKINA AZUL null, [facility] 5 09:20:51 Chronic diastolic heart failure 463562410 Active 2024 SAKINA AZUL null, [facility] 5 09:22:37 Low back pain 506953709 Active 2024 SAKINA AZUL null, [facility] 5 09:26:46 Hypertens ivelisse heart AND chronic kidney disease with congestiv e heart failure 081180564899 07 Active 2024 SAKINA AZUL null, [facility] 5 09:26:52 Hyperkale je 37797144 Active 2024 Mellisa Rios null, [facility] 5 12:32:29 Obstructi ve sleep apnea syndrome 75721749 Active 2024 Mellisa Rios null, [facility] 5 10:13:50 Dysuria 11039069 Active 2024 Mellisa Rios [facility] 5 14:01:29 Edema of lower extremity 841582346 Active 2024 Mellisa Rios [facility], LKarissaL.CKarissa 5 14:52:22 Dermatoph ytosis 35980007 Active 2024 SAKINA AZUL [facility], LKarissaL.CKarissa 5 16:35:29 Hypoxia 061365763 Active 2024 Mellisa Rios [facility], NatashaLKarissaCKarissa 5 15:51:45 Pain in bilateral feet 214453496999 25153 Active 2024 Mellisa Rios [facility] 5 15:03:43 Acute urinary tract infection 724469183 Active 2024 SAKINA AZUL [facility] 5 16:08:01 Problem Notes None recorded. Procedures Surgical History Date Name Laterality Status Provider Name and Address Organization Details Recorded Time 2023 echocardiography completed [facility] Manisha.L[facility] 4 14:13:13 ligation of fallopian tube completed Mellisaselina Rios [facility] 5 15:28:40 Cataract Surgery completed Nicolette Christianson [facility], NatashaLMindy 5 14:42:12 esophagogastroduodenoscopy completed SAKINA AZUL [facility], NatashaLKarissaCKarissa 5 10:55:44 resection of segment of liver completed SAKINA AZUL [facility], NatashaLMindy 3 15:15:50 cardiac pacemaker procedure complete d SAKINA AZUL [facility] 3 15:16:06 cholecystectomy completed SAKINA AZUL [facility] 3 15:16:14 hysterectomy completed SAKINA [facility] 3 15:16:26 Appendectomy completed [facility] 3 15:17:56 Imaging Results None recorded. Procedure Notes None recorded. Medical Equipment None Reported. Allergies Allergen ID Allergen Name Allergen Category Reaction Reaction Severity Criticality Documentation Date Start Date Code Code System Note Provider Name and Address Organization Details Recorded Time 20257 Augmentin medicatio n Not available Not available Not available 01/01/2023 53313 2 RxNorm [facility] 4 13:32:12 25356 acetamino phen / dextromet horphan / guaifenes in / pseudoeph edrine medicatio n chest pain Not available Not available 01/01/2023 49606 8 RxNorm React ion: Chest pain; Comme nt: Recor ded 05/14 12:13 PM by Talha Mcfadden e Visit ; Jamil kaufman; Blake chopra ce: *; ; [facility] 3 15:14:56 5684 hydralazi ne medicatio n Not available Not available Not available 12/31/2022 5470 RxNorm [facility] 4 09:01:13 5685 Product containin g penicilli n (product) medicatio n Not available Not available Not available 12/31/2022 75468 8001 SNOMED [facility]isa [facility] 3 08:50:01 5686 Buspar medicatio n Not available Not available Not available 12/31/2022 84159 0 RxNorm Mellisa Blanca null, [facility] 3 08:50:14 5688 benzomariannea jere medicatio n Not available Not available Not available 12/31/2022 06091 RxNorm Mellisa tabares, [facility] 3 08:50:47 Medications Name Sig Start Date Stop Date Status Note LastModified by Organization Details LastModified Time quetiapin e 25 mg tablet TAKE 1 TABLET ORALLY DAILY AT BED TIME active Not Available Not Available No t Available furosemid e 40 mg tablet Take 1.5 [...] completed Not Available Not Available Not Available ipratropi um 0.5 mg-albute rol 3 mg (2.5 mg base)/3 mL nebulizat ion soln USE 1 VIAL VIA NEBULIZE R FOUR TIME DAILY NEEDED active Not Available Not Available No t Available clindamyc in HCl 300 mg capsule [...] BY MOUTH EVERY DAY FOR 60 DAYS 2024 active Not Available Not Available Not Avai lable ondansetr on HCl 8 mg tablet TAKE [...] TAKE 2 TABLETS BY MOUTH EVERY DAY active Not [...] Not Available spironola ctone 25 mg tablet TAKE 1 TABLET BY MOUTH EVERY DAY active Not Available Not Available No t Available ondansetr on 8 mg disintegr ating tablet DISSOLVE 1/2-1 TABLET BY MOUTH EVERY 6 HOURS NEEDED FOR NAUSEA/V OMITING active Not Available Not Available No t Available levothyro xine 75 mcg tablet TAKE [...] mg-acetam inophen 325 mg tablet TAKE 1 TABLET NEEDED ORALLY EVERY 4-6 HRS NEEDED NOT TO EXCEED 2 PER DAY active Not Available Not Available No [...] completed Not Available Not Available Not Available omeprazol e 20 mg capsule,d elayed release TAKE 1 CAPSULE BY MOUTH EVERY DAY active Not Available Not Available No t Available Banophen 25 mg capsule TAKE 2 [...] Not Available furosemid e 20 mg tablet Take 2 tablets every day by oral route for 30 days. 2024 active Not Available Not Available Not Avai lable levofloxa leonela 750 mg tablet TAKE 1 [...] Available Not Available cefdinir 300 mg capsule Take 1 capsule every 12 hours by oral route for 5 days. 02/01 completed Not Available Not Available Not Available dorzolami de 2 % eye drops PLACE 1 DROP IN EACH EYE TWICE DAILY active Not Available Not Available No t Available Bactrim DS 800 mg-160 mg tablet Take 1 tablet every 12 hours by oral route for 5 days. 02/13 completed Not Available Not Available Not Available Ventolin 90 mcg/actua tion aerosol inhaler q 4-6 hrs prn wheezing /sob 01/28 completed 436; Recorded 10/23/19 22 10:47AM by Sakina Azul LPN (Authori zed through Mega Martinez MD), Refill Request; Refill Quantity : 3; Each; Not Available Not Available Not Available memantine 10 mg tablet TAKE 1 TABLET ORALLY TWICE A DAY FOR 90 DAYS START AFTER STARTER PACK active Not Available Not Available No t Available metoprolo l tartrate 25 mg tablet [...] completed Recorded 05/20/20 10:22AM by DAKSHA Brito, Carlaati on/Jerald dum; Refill Quantity : 0; Not Available Not Available Not Available aspirin daily as needed 09/06 completed 0; Recorded 05/14/20 22 12:13PM by Magdalena Gallardo, Office Visit; Not Available Not Available Not Available furosemid e daily on days with swelling 01/28 completed take only on days with swelling ; 436; Recorded 05/24/20 7:58AM by Mellisa Romero RN (Authori sandy through Mega Martinez MD), Refill Request; Refill Quantity : 30; Tablet; Not Available Not Available Not Available carvedilo l two times daily 01/28 completed 0; Recorded 05/14/20 12:13PM by Magdalena Gallardo, Office Visit; Not Available Not Available Not Available hydralazi ne three times daily 01/28 completed 0; Recorded 05/14/20 22 12:13PM by Magdalena Gallardo, Office Visit; Not Available Not Available Not Available lisinopri l daily 01/28 completed 0; Recorded 05/14/20 12:13PM by Magdalena Gallardo, Office Visit; Not Available Not Available Not Available [facility] Levothyro xine Sodium daily 01/28 completed 436; Recorded 03/10/20 22 2:32PM by Mellisa Romero RN (Authori sandy through Mega Martinez MD), Refill Request; Refill Quantity : 90; Tablet; Not Available Not Available Not Available ondansetr on Q 4HR PRN NAUSEA 01/28 completed 0; Recorded 05/14/20 12:13PM by Magdalena [...] active Not Available Not Available Not Avai labsoo Senna with Docusate Sodium 8.6 mg-50 mg tablet Take 2 tablets every day by oral route at bedtime for 90 days. 11/06 completed 0; Recorded 05/14/20 12:13PM by Magdalena Gallardo, Office Visit; Not Available Not Available Not Available ferrous gluconate 324 mg (37.5 mg iron) tablet TAKE 1 TABLET BY MOUTH EVERY DAY active Not Available Not Available No t Available Linzess 145 mcg capsule TAKE 1 CAPSULE BY MOUTH EVERY DAY FOR 90 DAYS active Not Available Not Available No t Available Eliquis 5 mg tablet TAKE 1 TABLET BY MOUTH TWICE A DAY active Not Available Not Available No t Available Eliquis bid 01/28 completed melida/a,; 436; Recorded 02/13/20 22 7:18AM by Sakina Azul LPN (Authori sandy through Mega Martinez MD), Refill Request; Refill Quantity : 180; Tablet; Not Available Not Available Not Available potassium chloride ER 20 mEq tablet,ex tended release TAKE 1 TABLET BY MOUTH EVERY DAY 10/12 completed Not Available Not Available Not Available Tiadylt ER 360 mg capsule,e xtended release TAKE 1 CAPSULE BY MOUTH EVERY DAY active Not Available Not Available No t Available Tiadylt ER 120 mg capsule,e xtended release TAKE 1 CAPSULE BY MOUTH EVERY DAY 12/12 completed Not Available Not Available Not Available Tiadylt ER 240 mg capsule,e xtended release TAKE 1 CAPSULE BY MOUTH EVERY DAY FOR 90 DAYS 01/29 completed Not Available Not Available Not Available Voltaren Arthritis Pain 1 % topical gel APPLY 4 GRAMS TO THE right knee BY TOPICAL ROUTE 4 TIMES PER DAY 2024 active Not Available Not Available Not Avai labsoo Trelegy Ellipta 200 mcg-62.5 mcg-25 mcg powder for [...] Updated DateTime 5 163.2 cm 24.2 kg/m2 85589.1 2 g 97.3 [degF] 92 /min 95 % 95 % 124/84 mm[Hg] [facility] 5 13:04:50 Date Recorded Body height Body mass index (BMI) Body weight Oxygen saturation Oxygen saturation in Arterial blood by Pulse oximetry Heart rate Respiratory rate Body temperature Systolic And Diastolic Provider Name and Address Organization Details Last Updated DateTime 5 163.2 cm 23.5 kg/m2 72474.7 5 g 92 % 92 % 81 /min 20 /min 97.2 [degF] 118/68 mm[Hg] Nicolette Sammy [facility] 5 14:37:46 Date Recorded Body height Body mass index (BMI) Body weight Body temperature Heart rate Oxygen saturation Oxygen saturation in Arterial blood by Pulse oximetry Systolic And Diastolic Provider Name and Address Organization Details Last Updated DateTime 5 163.2 cm 22.3 kg/m2 93759.6 g 97.2 [degF] 104 /min 98 % 98 % 130/72 mm[Hg] [facility] 5 15:27:46 Date Recorded Body height Body mass index (BMI) Body weight Body temperature Heart rate Oxygen saturation Oxygen saturation in Arterial blood by Pulse oximetry Systolic And Diastolic Provider Name and Address Organization Details Last Updated DateTime 5 163.2 cm 22.1 kg/m2 19075.0 1 g 96.9 [degF] 100 /min 96 % 96 % 122/88 mm[Hg] [facility] 5 14:20:47 Social History Question Answer Notes LastModified by Organizat ion Details LastModified Time Tobacco Smoking Status Current Every Day Smoker [facility] 02/10/2023 15:27:20 What Was The Date Of Your Most Recent Tobacco Screening? 12/12/2024 [email or web address] Information not available 12/12/2024 How Much Tobacco Do You Smoke? 0.25 PPD [email or web address] Information not available 02/10/2023 Has Tobacco Cessation Counseling Been Provided? No [email or web address] Information not available 02/10/2023 Sex: Unknown Functional Status Question Answer Note LastModified by Organization D etails LastModified Time Do you or have you ever used any other forms of tobacco or nicotine? No [email or web address] Information not available 02/10/2023 Mental Status None recorded. Family History Nothing Reported. Medical History No medical history recorded. Gynecological HistoryNo gynecological history recorded. Obstetrics History GPAL:G 0 P 0 0 0 0 Immunizations Vaccine Type Date Status Note Provider Nam e and Address Organization Details Recorded Time Influenza, split virus, trivalent, preservative 0 completed Not Available [facility] 05/27/2023 13:10:53 Td (adult), 2 Lf tetanus toxoid, preservative free, adsorbed 4 completed Mellisa Rios [facility], [facility] 12/31/2022 08:51:03 Past Encounters Encounter ID Performer Location Encounter Start Date Encounter Closed Date Diagnosis/Indication Diagnosis SNOMED-CT Code Diagnosis ICD10 Code Diagnosis IMO Codes Diagnosis Note [id number] Mega Martinez MD [facility] ([facility]) [address] [place] [address] [phone] 5 12/31/2022 08:34:47 12/31/2022 10:47:18 Sudden visual loss 52291007 H53.133 4 months ago. cannot really say what visual rodarte at this point. lets say total. i will request her visual field exam which has been since her vision loss episode. Hypothyroidism 66406571 E03.9 Atrial fibrillation 4943 6004 I48.91 Hyperlipidemia 00124294 E78.5 Screening mammography 24 313590 Z12.31 Chronic low back pain 27 9192167 M54.50 [id number] Mega Martinez MD [facility] ([facility]) [address] [place] [address] [id number] 5 01/28/2023 11:27:48 01/28/2023 13:44:14 Dysuria 57154224 R30.0 Pruritic rash 50474833 L 28.2 [id number] Mega Martinez MD [facility] ([facility]) [address] [place] [address] [id number] 5 02/10/2023 15:04:23 02/18/2023 21:50:18 Hypothyroidism 15042940 E03.9 Acute urin josé tract infection 554556932 N39.0 Essential hypertension 58833196 I10 [id number] Mega Martinez MD [facility] ([facility]) [address] [place] [address] [id number] 5 05/27/2023 13:10:43 05/27/2023 15:08:50 Atrial fibrillation 59047138 I48.91 Chest pain 87856326 R07. 9 Pain in th oracic spine 427570029 M54.6 [id number] Mega Martinez MD 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 ([facility]) [address] [place] [address] [phone] 5 11/01/2023 13:38:16 11/01/2023 15:03:33 Atrial fibrillation 28727882 I48.91 Benign ess ential hypertension 7676837 I10 Hyperlipidemia 37414581 E78.5 Hypothyroidism 42662296 E03.9 Hyperglycemia 62116266 R 73.9 [id number] Mega Martinez MD [facility] ([facility]) [address] [place] [address] 01/20/2024 10:14:13 01/23/2024 10:48:29 Benign essential hypertension 5280502 I10 Hyperlipidemia 91072548 E78.5 Hypothyroidism 83857630 E03.9 [id number] Mega Martinez MD [facility] ([facility]) [address] [place] [address] 01/27/2024 13:14:18 01/27/2024 17:27:14 Hypothyroidism 44788557 E03.9 Chronic ki dney disease stage 3A 702393485 N18.31 [id number] Mega Martinez MD [facility] ([facility]) [address] [place] [address] [id number] 5 02/17/2024 12:48:15 02/17/2024 16:33:53 Chronic atrial fibrillation 348044398 I48.20 Microcytosis 830435414 R 71.8 will continue eliquis/as pirin for [...] not be significan t change Essential hypertension 98294350 I10 [id number] Ilia Rose DO [facility] ([facility]) [address] [place] [address] [id number] 5 02/28/2024 14:15:49 02/28/2024 17:37:43 Screening for malignant neoplasm of colon 215529406 Z12.11 I have reviewed and discussed EGD colon cancer screening options, including colonoscop y. Discussed risks vs benefits including risk of infection and bleeding, perforatio n, possible need for surgery, reaction to medication s, and sever injury or . We discussed pt requiring sedation and possible general anesthesia . Pt agrees to proceed with EGD and Colonoscop y at [facility]. Preliminar y procedure date will be 03/29/24, this will be after Echo, scheduled for 03/20/24, pt will need Cardiac clearance prior. [id number] Mega Martinez MD [facility] ([facility]) [address] [place] [address] [id number] 5 03/20/2024 13:23:22 03/20/2024 15:01:34 Left lower quadrant pain 476349494 R10.32 keep endoscopy f/usx improvingc t did not identify a worrisome cause. Nodule of lung 856985957 R91.1 Chronic ki dney disease stage 3A 743363909 N18.31 Chronic ob structive pulmonary disease 12523875 J44.9 Acute exac erbation of chronic obstructive pulmonary disease 412612439 J44.1 COVID-19 323384375 U07.1 [id number] Mega Martinez MD [facility] ([facility]) [address] [place] [address] [id number] 5 03/27/2024 13:16:53 03/27/2024 14:55:32 Intractable abdominal pain 6709859005 8368218 R10.9 EHS called. I will call the ED and give report [id number] Mega Martinez MD [facility] ([facility]) [address] [place] [address] [phone] 5 04/11/2024 12:26:13 04/12/2024 10:21:20 Acute pancreatitis 576668164 K85.90 Atrial fib rillation with rapid ventricular response 2071447305 93072 I48.91 Acute kidney injury 1466 9001 N17.9 Pneumonia caused by SARS-CoV-2 0539220951 07112822 J12.82 Edema of l ower extremity 664059299 R60.0 Right kidney absent 4438 91271 Z90.5 Acquired c ystic dilatation of common bile duct 115426233 K83.5 unknown etiology of her pancreatit ishx of gallbladde r cancer Chronic low back pain 27 0280777 M54.50 Dysuria 26496631 R30.0 Vaginal discharge 999168 006 N89.8 [id number] Mega Martinez MD [facility] ([facility]) [address] [place] [address] [id number] 5 04/19/2024 14:53:39 04/20/2024 12:39:45 Chronic kidney disease stage 3A 669180877 N18.31 [id number] Mega Martinez MD [facility] ([facility]) [address] [place] [address] [id number] 5 04/20/2024 11:28:42 04/20/2024 14:49:05 Candidiasis of vagina 95075509 B37.31 Chronic pr imary low back pain 4833738309 7100 M54.50 she has legitimate chronic low [...] other medical issues. Chronic at rial fibrillation 890049030 I48.20 Acute pancreatitis 6006 K85.90 dx for hydrocodon e should have been chronic back pain. i cannot recall or resend the script. [id number] Mega Martinez MD [facility] ([facility]) [address] [place] [address] 54[address]-824 5 04/27/2024 13:10:35 04/30/2024 13:47:02 Atrial fibrillation 62792519 I48.91 she did not take her dilt today she will go home and take that right away. Chronic at rial fibrillation 517002524 I48.20 Edema of l ower extremity 587271730 R60.0 [id number] Mega Martinez MD [facility] ([facility]) [address] [place], [place] [address] 5 05/01/2024 13:02:12 05/01/2024 14:19:54 Dysuria 27837061 R30.0 Acute infe ctive cystitis 546345254 N30.00 Chronic at rial fibrillation 725342184 I48.20 [id number] Mega Martinez MD [facility] ([facility]) [address] [place] [address] [id number] 5 05/09/2024 10:05:26 05/09/2024 12:29:57 Atrial fibrillation 02050668 I48.91 she did not take her dilt today she will go home and take that right away. Dysuria 76647045 R30.0 [id number] Mega Martinez MD [facility] ([facility]) [address] [place], [place] [address] 05/22/2024 12:16:36 05/22/2024 15:36:27 Dysuria 21337406 R30.0 Chronic di astolic heart failure 322618696 I50.32 Atrial fib rillation with rapid ventricular response 9569284512 41788 I48.91 Acute kidney injury 1466 9001 N17.9 Edema of l ower extremity 472694983 R60.0 Right kidney absent 4438 20146 Z90.5 Acquired c ystic dilatation of common bile duct 569118520 K83.5 unknown etiology of her pancreatit ishx of gallbladde r cancer Chronic low back pain 27 9022098 M54.50 Atrial fibrillation 4943 6004 I48.91 she did not take her dilt today she will go home and take that right away. needs rhythm control if at all possible possibly digoxin. rate remains quite high but bp is labile and gets low at times. [id number] Mega Martinez MD [facility] ([facility]) [address] [place] [address] 06/08/2024 11:41:52 06/09/2024 08:05:29 Benign essential hypertension 2534178 I10 Hypothyroidism 78324916 E03.9 [id number] Mega Martinez MD [facility] ([facility]) [address] [place] [address] 06/14/2024 13:19:49 06/14/2024 14:51:41 Microcytosis 487248138 R71.8 will continue eliquis/as pirin for now. [...] t change Edema of l ower extremity 771629937 R60.0 Iron deficiency 50234206 E61.1 Chronic ob structive pulmonary disease 47701882 J44.9 Atrial fibrillation 4943 6004 I48.91 she did not take her dilt today she will go home and take that right away. needs rhythm control if at all possible possibly digoxin. rate remains quite high but bp is labile and gets low at times. Acute pancreatitis 67389 6007 K85.90 dx for hydrocodon e should have been chronic back pain. i cannot recall or resend the script. [id number] Mega Martinez MD [facility] ([facility]) [address] [place] [phone] 5 06/28/2024 12:57:19 06/28/2024 17:19:14 Acquired dilation of bile duct 4213633301 622255 K83.8 Cough 68665337 R05.9 Acute uppe r respiratory infection 43247000 J06.9 Fever 151165543 R50.9 Chronic ob structive pulmonary disease 98737264 J44.9 resume your trelegy and take it every day whether you feel great or terrible. [id number] Mega Martinez MD [facility] ([facility]) [address] [place] [address]061 5 07/09/2024 13:20:56 07/10/2024 16:39:39 Pain of right knee joint 3088202023 64912 M25.561 ice and rest the knee Sprain of medial collateral ligament of knee 84233676 S83.411A [id number] Ilia Rose DO [facility] ([facility]) [address] [place] [address] 5 07/23/2024 13:56:00 07/27/2024 11:13:38 Atrial fibrillation 31836045 I48.91 persistent , on amiodarone , eliquis, and metoprolol Acquired d ilation of bile duct 7509194607 088708 K83.8 pt has ERCP and ductal stent placement scheduled in d end of JUL. Chronic pancreatitis 235 818493 K86.1 Stenosis of bile duct 43 278557 K83.1 Melena 7124961 K92.1 [id number] Mega Martinez MD [facility] ([facility]) [address] [place] [address] 5 08/06/2024 13:55:06 08/07/2024 15:38:00 Chronic diastolic heart failure 312778412 I50.32 Hypertroph ic obstructive cardiomyopathy 42435448 I42.1 Atrial fibrillation 4943 6004 I48.91 she did not take her dilt today she will go home and take that right away. needs rhythm control if at all possible possibly digoxin. rate remains quite high but bp is labile and gets low at times. Chronic ki dney disease stage 3A 427594895 N18.31 Hyperlipidemia 15251646 E78.5 Low back pain 727523333 M54.50 Hypertensi ve heart AND chronic kidney disease with congestive heart failure 4938384291 9107 I13.0 Microcytosis 006149806 R 71.8 will continue eliquis/as pirin for [...] t change Edema of l ower extremity 617795718 R60.0 Iron deficiency 18946306 E61.1 Chronic ob structive pulmonary disease 15754236 J44.9 resume your trelegy and take it every day whether you feel great or terrible. Acute pancreatitis 6007 K85.90 dx for hydrocodon e should have been chronic back pain. i cannot recall or resend the script. Chronic at rial fibrillation 809369160 I48.20 Nausea and vomiting 1693 1999 R11.2 possible bile duct stent in the near future [id number] Mega Martinez MD [facility] ([facility]) [address] [place] [phone] 5 08/30/2024 11:19:13 08/31/2024 11:32:06 Benign essential hypertension 4313898 I10 Hypothyroidism 89830306 E03.9 Iron deficiency 04341128 E61.1 [id number] Mega Martinez MD [facility] ([facility]) [address] [place] [phone] 5 09/06/2024 12:41:37 09/06/2024 16:16:21 Acute exacerbation of chronic obstructive pulmonary disease 428128967 J44.1 Acute kidney injury 1466 9001 N17.9 Atrial fib rillation with rapid ventricular response 2174292191 40345 I48.91 Acquired d ilation of bile duct 5194298480 450208 K83.[address] of oddi spasm vs [...] work toward that end. Chronic constipation 236 260159 K59.09 she is doing fiber daily.cecy lax don't work the hospital started [facility] [id number] Mega Martinez MD [facility] ([facility]) [address] [place] [phone] 5 09/26/2024 13:26:03 09/27/2024 14:21:57 Red blood cell count above reference range 414759013 R71.8 431983 Abdominal discomfort 433 92971 R10.9 596692 [id number] Mega Martinez MD [facility] ([facility]) [address] [place] [phone] 5 10/11/2024 12:08:30 10/11/2024 14:36:25 Benign essential hypertension 0912741 I10 Low back pain 608032137 M54.50 i have talked to her once again about considerin g lesi and interventi onal pain tx. she will consider it now. she has 44 hydrocodon e in her bottle today. it is prescribed by dr. redding, but he is retiring. Chronic at rial fibrillation 845435601 I48.20 Obstructiv e sleep apnea syndrome 97185533 G47.33 12718877 Chronic ob structive pulmonary disease 38817381 J44.9 88041190 resume your trelegy and take it every day whether you feel great or terrible. Edema of l ower extremity 314516876 R60.0 [id number] Mega Martinez MD [facility] ([facility]) [address] [place] [phone] 5 11/06/2024 13:25:23 11/12/2024 11:51:49 Dysuria 26561327 R30.0 44494 Vaginal discharge 525396 006 N89.8 88528 Pain of ri ght knee joint 7996704290 28516 M25.561 915899 ice and rest the knee [id number] Mega Martinez MD [facility] ([facility]) [address] [place] [address]693 5 11/07/2024 15:57:30 11/08/2024 12:32:02 Benign essential hypertension 8628398 I10 Hypothyroidism 44490138 E03.9 Red blood cell count above reference range 741999178 R71.8 465883 [id number] Mega Martinez MD [facility] ([facility]) [address] [place] [phone] 5 11/12/2024 12:47:39 11/14/2024 13:12:58 Abnormal weight loss 538859139 R63.4 208488 likely secondary to biliary issues. will need gi input to help assess and hopefully fix this. Nausea and vomiting 1692 1999 R11.2 possible bile duct stent in the near future [id number] Mega Martinez MD [facility] ([facility]) [address] [place] [phone] 5 12/12/2024 14:30:26 12/12/2024 15:25:35 Neoplasm of pituitary and suprasellar region 531903006 D49.7 she has chronic headaches appears to have visual hallucinat ions which are chronic, she reports she started hearing voices last week, and memory change. Auditory hallucinations 68458578 R44.0 00133 new onset with hx of intracrani al mass. will need to image the brain, do an eeg and see neurology [id number] Mega Martinez MD [facility] ([facility]) [address] [place] [address] [phone] 5 01/01/2025 15:05:20 01/02/2025 08:38:05 [id number] Mega Martinez MD [facility] ([facility]) [address] [place] [address] 01/29/2025 14:01:16 01/30/2025 09:43:23 Dysuria 56758873 R30.0 76928 Dementia 20034528 F03.B2 2208132233 neurology suspected Lewy Body Dementia Chronic gastritis 467288 9 K29.50 85412240 Chronic constipation 236 537341 K59.09 115480 she is doing fiber daily.cecy lax don't work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
--- OUTSIDE RECORDS SUMMARY | 2025-04-08 17:02 | XMS_ITS | Encounter Summary ---
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
--- OUTSIDE RECORDS SUMMARY | 2025-04-08 17:02 | XMS_ITS | Clinical Summary ---
Author Organization [facility] Address [address] 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 Anatomical Region Laterality Modality Head Magnetic Resonan ce us Abstract Provider MR ORDERABLES Final Result from Last 3 Months
--- OUTSIDE RECORDS SUMMARY | 2025-04-08 17:02 | XMS_ITS | Encounter Summary ---
Author Organization [facility] Address [address] [place] [address] Care Team Providers Care Marketing Production Specialist Name Role Phone Unavailable Primary Care Provider Unavailabl e Encounter Details Date Type Department Care Team (Latest Contact Info) Description 04/11/2001 Outpatient Historical [facility] OBGYN-[place] [address] [place] [address] Obed Moore MD NO ADDRESS ON FILE ABDOMINAL PAIN GENERALIZED (Primary Dx); FEMALE GENITAL SYMPTOMS NOS Social History Tobacco Use Types Packs/Day Years Used Date Smoking Tobacco: Never Assessed Comments Unknown Sex and Gender Information Value Date Recorded Sex Assigned at Not on file 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
--- OUTSIDE RECORDS SUMMARY | 2025-04-08 17:02 | XMS_ITS | Encounter Summary ---
Author Organization [facility] Address [address] [place] [address] Care Team Providers Care Mushroom Press Operator Name Role Phone Unavailable Primary Care Provider Unavailabl e Encounter Details Date Type Department Care Team (Late st Contact Info) Description 06/13/2001 Outpatient Historical [facility] OBDANIELN-Christopher Olson[place] [address] [place] [address] Social History Tobacco Use Types Packs/Day Years Used Date Smoking Tobacco: Never Assessed Comments Unknown Sex and Gender Information Value Date Recorded Sex Assigned at Not on file 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
--- OUTSIDE RECORDS SUMMARY | 2025-04-08 17:02 | XMS_ITS | Encounter Summary ---
Author Organization [facility] Address [address] [place] [address] Care Team Providers Care Order Administrator Name Role Phone Unavailable Primary Care Provider Unavailabl e Encounter Details Date Type Department Care Team (Latest Contact Info) Description 08/16/2001 Outpatient Historical [facility] Endocrinology-Dwight h [place] [address] [place] [address] Noemí Goddard MD [address] [place] [address] HYPOTHYROIDISM NOS (Primary Dx); GOITER NOS Social History Tobacco Use Types Packs/Day Years Used Date Smoking Tobacco: Never Assessed Comments Unknown Sex and Gender Information Value Date Recorded Sex Assigned at Not on file 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
--- OUTSIDE RECORDS SUMMARY | 2025-04-08 17:02 | XMS_ITS | Encounter Summary ---
Author Organization [facility] Address [address] [place] [address] Care Team Providers Care Jukebox Operator Name Role Phone Unavailable Primary Care Provider Unavailabl e Encounter Details Date Type Department Care Team (Latest Contact Info) Description 06/13/2001 Outpatient Historical [facility] Imaging Services-Christopher Prasad [place] [address] [place] [address] Obed Moore MD NO ADDRESS ON FILE FEMALE GENITAL SYMPTOMS NOS (Primary Dx) Social History Tobacco Use Types Packs/Day Years Used Date Smoking Tobacco: Never Assessed Comments Unknown Sex and Gender Information Value Date Recorded Sex Assigned at Not on file 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
--- OUTSIDE RECORDS SUMMARY | 2025-04-08 17:02 | XMS_ITS | Encounter Summary ---
Author Organization [facility] Address [address] [place] [address] Care Team Providers Care Drill Punch Operator Name Role Phone Unavailable Primary Care Provider Unavailabl e Encounter Details Date Type Department Care Team (Latest Contact Info) Description 03/30/2001 Outpatient Historical [facility] Prashanth Hernandez MD NO ADDRESS ON FILE Chronic pancreatitis (CMS/HCC) (Primary Dx) Social History Tobacco Use Types Packs/Day Years Used Date Smoking Tobacco: Never Assessed Comments Unknown Sex and Gender Information Value Date Recorded Sex Assigned at Not on file 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
--- OUTSIDE RECORDS SUMMARY | 2025-04-08 17:02 | XMS_ITS | Encounter Summary ---
Author Organization [facility] Address [address] [place] [address] Care Team Providers Care Prototype Technician Name Role Phone Unavailable Primary Care Provider Unavailabl e Encounter Details Date Type Department Care Team (Latest Contact Info) Description 03/20/2001 Outpatient Historical [facility] OBDANIELN-Christopher Olsonnn [place] [address] [place] [address] Obed Moore MD NO ADDRESS ON FILE Gynecologic examination (Primary Dx); Vaginitis and vulvovaginitis, unspecified; Symptomatic menopausal or female climacteric states; Other malaise and fatigue Social History Tobacco Use Types Packs/Day Years Used Date Smoking Tobacco: Never Assessed Comments Unknown Sex and Gender Information Value Date Recorded Sex Assigned at Not on file 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
--- OUTSIDE RECORDS SUMMARY | 2025-04-08 17:02 | XMS_ITS | Encounter Summary ---
Author Organization [facility] Address [address] [place] [address] Care Team Providers Care Delivery Representative Name Role Phone Unavailable Primary Care Provider Unavailabl e Encounter Details Date Type Department Care Team (Late st Contact Info) Description 04/11/2001 Outpatient Historical [facility] Christopher Prasad [place] [address] [place] [phone] Katelin Ortiz MD NO ADDRESS ON FILE SCREENING MAMM-MAILG NEOPL-OTHER (Primary Dx) Social History Tobacco Use Types Packs/Day Years Used Date Smoking Tobacco: Never Assessed Comments Unknown Sex and Gender Information Value Date Recorded Sex Assigned at Not on file 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
--- OUTSIDE RECORDS SUMMARY | 2025-04-08 17:02 | XMS_ITS | Encounter Summary ---
Author Organization [facility] Address [address] 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
--- OUTSIDE RECORDS SUMMARY | 2025-04-08 17:02 | XMS_ITS | Encounter Summary ---
Author Organization [facility] Address [address] [place] [address] Care Team Providers Care Mailroom Supervisor Name Role Phone Unavailable Primary Care Provider Unavailabl e Encounter Details Date Type Department Care Team (Latest Contact Info) Description 06/13/2001 Outpatient Historical [facility] OBGYN-[place] [address] [place] [address] Obed Moore MD NO ADDRESS ON FILE ABDOMINAL PAIN GENERALIZED (Primary Dx) Social History Tobacco Use Types Packs/Day Years Used Date Smoking Tobacco: Never Assessed Comments Unknown Sex and Gender Information Value Date Recorded Sex Assigned at Not on file 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
--- OUTSIDE RECORDS SUMMARY | 2025-04-08 17:02 | XMS_ITS | Encounter Summary ---
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
--- OUTSIDE RECORDS SUMMARY | 2025-04-08 17:02 | XMS_ITS | Patient Health Record ---
Author Organization [facility] Address [address] [place] [address] Care Team Providers Care Mainframe Systems Administrator Name Role Phone Mega Martinez MD Primary Care Provider Anyi Bills [phone] Allergies Allergen (clinical drug ingredient) Drug/Non Drug Allergy documented on EMR Reaction Allergy Type Onset Date Status povidone-iodine Betadine Unknown Drug Allergy A ctive [place] Flavor Unknown Drug Allergy Act ivelisse Penicillin Unknown Drug Allergy Active Results Component Value Reference Range Flag Notes Tox Results Reviewed date:12/28/2024 04:33:19 PM Interpretation: Performing Lab: Notes/Report: Urine Confirmation Panel (in strument) - [id number] Reviewed date:12/26/2024 05:23:35 PM Interpretation: Performing Lab: [...] by the U.S. Food and Drug Administration. Urine Drug Screen (cup read) - [id number] Reviewed date:12/18/2024 04:22:43 PM Interpretation: Performing Lab: Notes/Report: OPI + OXY + Reason For Referral Reason Chronic primary low back pain Diagnosis 1 Chronic pain syndrom e (G89.4) Referring Provider First Name Mega Referring Provider Last Name Juan Referring Provider Speciality Family Med icine Referred Organization [facility] Referred Provider Alice Bryant Referred Address [address],[place],[address], Referred Provider Specialty Pain Medicin e General Notes Briana Ramirez 1208/2023 03:51:37 PM >Patient has [facility] and it is not accepted Referral Priority Routine Reason low back pain Diagnosis 1 Chronic pain syndrom e (G89.4) Referring Provider First Name Mega Referring Provider Last Name Juan Referring Provider Speciality Family Med icinicky Referred Organization [facility] Referred Provider Alice Bryant Referred Address [address],[facility],[place],[address], Referred Provider Specialty Pain Medicin e General Notes Cindy Zamudio 0 10/24/2024 01:50:05 PM >ATC. Number not accepting messages., Ana Lilia Corcoran 11/07/2024 02:29:26 PM >returned npp, scheduled pt Referral Priority Routine Reason PT for low back pain Diagnosis 1 Low back pain (M54.5 0) Referral Organization [facility] Referring Provider First Name Anyi Referring Provider Last Name Vicki Marcus Referring Provider Speciality Pain Medic ine Referred Provider [facility] Referred Provider Specialty Preventive M edicine Referral Priority Routine Medications Medication SIG (Take, Route, Frequency, Duration) Notes Start Date End Date Status HYDROcodone-Acetaminophen 7.5-325 MG Tablet 1 tablet as needed Orally every 6 hrs Active Pantoprazole Sodium Active Ferrous Gluconate Ac tive Latanoprost Active [...] Status Risk Notes Problem Chronic pain syndrome (612791002) Chronic pain syndrome (G89.4) Active confirmed Problem Paroxysmal atrial fibrillation (307743190) Paroxysmal atrial fibrillation (I48.0) Active confirmed Problem Lumbosacral spondylosis with radiculopathy (246498830) Lumbosacral spondylosis with radiculopathy (M47.27) Active confirmed Problem Lumbosacral spondylosis without myelopathy (69141568) Spondylosis of lumbosacral region without myelopathy or radiculopathy (M47.817) Active confirmed Problem Degenerative disorder of macula (048714992) Macular degeneration, unspecified laterality, unspecified type (H35.30) Active confirmed Problem History of myocardial infarction (169153956) History of myocardial infarction (I25.2) Active confirmed Problem Myalgia (15000764) Myalgia (M79.10) Active conf irmed Problem Lumbosacral radiculopathy (4598718) Lumbosacral radiculopathy (M54.17) Active confirmed Problem High risk drug monitoring status (343239137) Chronic prescription opiate use (Z79.891) Active confirmed Problem Long-term current use of anticoagulant (565657718) Anticoagulated (Z79.01) Active confirmed Problem Nephrosclerosis (16043520) 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) Active confirmed Encounters Encounter Location Date Provider Diagnosis [facility] [address] [place] [address] 12/18/2024 Anyi rankin Chronic pain syndrome G89.4 ; Lumbosacral spondylosis with radiculopathy M47.27 ; Myalgia M79.10 ; Atrophic kidney N26.1 ; Paroxysmal atrial fibrillation I48.0 ; Macular degeneration, unspecified laterality, unspecified type H35.30 ; History of myocardial infarction I25.2 ; Chronic prescription opiate use Z79.891 ; Anticoagulated Z79.01 ; Spondylosis of lumbosacral region without myelopathy or radiculopathy M47.817 and Lumbosacral radiculopathy M54.17 [facility] [address], [place] [address] 01/07/2025 Anyi rankin Chronic pain syndrome G89.4 [...] radiculopathy (ICD-10 - M54.17) a 12/18/2024 Other I, Elise Bender, am scribing for Dr. Burt. [...] Name Order Date Lumbosacral Spine Comp w/ Bending-11491 12/18/2024 Insurance Providers Payer Name Payer Address Payer Phone Subscriber Number Group Number Insured Name Patient Relationship to Insured Coverage Start Date Coverage End Date [facility] Medicare Replacement [address] [place] [address] [id number] Kaity Terry Self - patient is the insured Out of Network [facility] Medicare Replacement [address] [address] [place] [address] [id number] Kaity Terry Self - patient is the insured Medical (General) History Medical History History ICD Code Problem:Obesity (disorder) , Status :: A ctive Heart Disease Heart attack Measles/Mumps/Rubella bronchitis glaucoma migraine headaches stroke Depression Cancer Arthritis Thyroid disease Bleeding disorders/Blood thinners Surgical History Surgery Date(Month/Year) Liver surgery 2017 gall bladder removal 2014
--- OUTSIDE RECORDS SUMMARY | 2025-04-08 17:03 | XMS_ITS | Clinical Summary ---
Author Organization [facility] Address [address] 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
[2025-04-08 17:15] VITALS: BP 112/73; PULSE 62; RESP 17; TEMP 36.8; O2SAT 95; BMI 22.8
[2025-04-08 21:30] LABS: Hematocrit 47.6 % (36-47); Hemoglobin 15.60 g/dL (11.27-16.99); Mean Corpuscular HGB Conc 32.8 g/dL (30-55); Mean Corpuscular Hemoglobin 32.6 pg (27-33); Mean Corpuscular Volume 99.4 fl (85-98); Nucleated Red Blood Cells % 0 %; Platelet Count 258 10^3/cmm (157-399); Red Blood Count 4.79 10^6/uL (3.85-5.65); White Blood Count 9.26 10^3/uL (3.29-11.43)
--- NOTE | 2025-04-08 21:50 | W.ED.EXTPRO ---
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 She states that she's also fallen twice in the last two weeks. Per patient and daughter, she's recently been put on hospice for malignant brain tumor and is comfort care only but I am not able to find this in the record. Per patient, she has fallen twice in the last two weeks and did strike her head about two weeks ago. She states she fell on her bottom and then hit the back of her head. She then fell again last Tuesday but is not able to describe this fall. Per daughter, she has memory problems. She has had L foot and calf pain and upper thigh pain. She has not had a fever. Related Data Home Medications ?Medication ?Instructions ?Recorded ?Confirmed dorzolamide 2 % eye drops 1 drp ophthalmic (eye) TID 04/20/21 02/12/25 ferrous gluconate 324 mg (38 mg 324 mg PO DAILY 04/20/24 02/12/25 iron) tablet fluticasone fur. 200 mcg-umeclid 1 inh inhalation DAILY 04/20/24 02/12/25 62.5 mcg-vilant 25 mcg inhalat.powder (Trelegy Ellipta) hydrocodone 7.5 mg-acetaminophen 1 tab PO TID PRN Pain 04/20/24 02/12/25 325 mg tablet latanoprost 0.005 % eye drops 1 drp ophthalmic (eye) QPM 04/20/24 02/12/25 amiodarone 200 mg tablet 200 mg PO DAILY 07/31/24 02/12/25 atorvastatin 40 mg tablet (Lipitor) 40 mg PO DAILY 07/31/24 02/12/25 metoprolol tartrate 25 mg tablet 25 mg PO BID 07/31/24 02/12/25 ondansetron 8 mg disintegrating 4 - 8 mg PO Q6H PRN Nausea And 07/31/24 02/12/25 tablet Vomiting pantoprazole 40 mg tablet,delayed 40 mg PO DAILY 09/01/24 02/12/25 release furosemide 20 mg tablet 20 mg PO TID 10/05/24 02/12/25 levothyroxine 75 mcg tablet 75 mcg PO DAILY 10/05/24 02/12/25 apixaban 5 mg tablet (Eliquis) 5 mg PO BID 01/31/25 02/12/25 linaclotide 72 mcg capsule 72 mcg PO DAILY 01/31/25 02/12/25 (Linzess) potassium chloride 10 mEq oral 10 meq PO DAILY 01/31/25 02/12/25 packet spironolactone 25 mg tablet 50 mg PO DAILY 01/31/25 02/12/25 Previous Rx's ?Medication ?Instructions ?Recorded memantine 10 mg tablet (Namenda) 10 mg PO BID 90 days #180 tabs 01/24/25 memantine 5 mg-10 mg tablets in a See Rx Instructions PO PER PKG DIR 01/24/25 dose pack #49 ea quetiapine 25 mg tablet (Seroquel) 25 mg PO DAILY #90 tabs 01/24/25 Allergies Allergy/AdvReac Type Severity Reaction Status Date / Time orange juice Allergy Intermediate ADR-Vomitin Verified 04/08/25 17:22 g amoxicillin Allergy unk Verified 04/08/25 17:22 buspirone Allergy unk Verified 04/08/25 17:22 hydralazine Allergy coughing Verified 04/08/25 17:22 and nausea Penicillins Allergy shortness Verified 04/08/25 17:22 of breath povidone-iodine (From Allergy unk Verified 04/08/25 17:22 Betadine) soap (From Betadine) Allergy unk Verified 04/08/25 17:22 Gflklub-LVT-DeZ Reductase Allergy FLu like Verified 04/08/25 17:22 Inhibitor (Vlmiraa-Uey-Nvb symptoms Reductase Inhibitor) carvedilol AdvReac Severe cough Verified 04/08/25 17:22 amlodipine AdvReac BLE edema Verified 04/08/25 17:22 valsartan AdvReac unknown Verified 04/08/25 17:22 PFSH ED PFSH: Medical History (Updated 04/09/25 @ 01:06 by Shanthi Joy MD) Carmen metatarsalgia, bilateral Chest pain Peripheral neuropathy Glaucoma Herpes genitalis 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 Brother CAD (coronary artery disease) Brother , 2 brothers of heart disease CAD (coronary artery disease) Denies family history of Diabetes Clotting disorder Dementia Hyperlipidemia Psychiatric illness Chronic kidney disease (CKD) Suicide Anesthesia complication Bleeding disorder Family history of premature coronary artery disease Lung disease Cancer Hypertension Stroke Social History Smoking and tobacco/nicotine status: current every day tobacco/nicotine user Alcohol intake: never Substance/Drug Use: never Physical Exam Narrative: EXAM NARRATIVE: Vital signs were reviewed. Patient is alert and awake although she's not able to provide reliable history. Patient is breathing comfortably, no increased WOB. SpO2 is above 95% on RA. Patient has diffuse expiratory wheezing.. No hypotension or tachycardia. Abdomen is soft, nondistended and nontender. Patient is moving all extremities, no deformity or gross injury. No lower extremity edema or asymmetry. She has palpable DP pulses. She has pain w/palpation of the L calf and upper thigh. She also has pain w/palpation of the anterior foot. No wound, erythema, purulence or malodor. She has poor circulation but toes are not significantly discolored in comparison to right foot. Course Vital Signs: Vital signs: Vital Signs Temperature 98.3 F 04/08/25 17:15 Pulse Rate 60 04/08/25 23:06 Respiratory Rate 18 04/08/25 23:06 Blood Pressure 154/108 04/08/25 22:06 Pulse Oximetry 98 04/08/25 23:06 Oxygen Delivery Me thod Room Air 04/08/25 23:06 MDM - Extremity (Nontraumatic) Medical Decision Making 69-year-old female presents with a chief complaint of several months of left lower extremity pain. She has also suffered 2 falls recently. She also reports pain of the calf and thigh. Differential diagnosis includes but is not limited to, fracture, dislocation, sprain, contusion, DVT, arterial occlusion, infection, other. On exam, she is hemodynamically stable. Patient was evaluated lab work including CBC, CMP, procalcitonin, CRP, D-dimer. She was treated with IV Zofran and IV Dilaudid. Patient was also evaluated with x-rays. X-rays are negative for acute fracture or dislocation. Patient has a normal white blood cell count, normal procalcitonin and is afebrile. CRP is mildly elevated but this is nonspecific. I do not appreciate clinical evidence of cellulitis, abscess and labs do not support an infectious cause. Due to elevated D-dimer, she was evaluated with venous Doppler to rule out DVT which is also negative. Of note, creatinine is mildly elevated but this is baseline in comparison to previous. At this time, patient may be suffering from chronic left lower extremity pain. She may benefit from further workup on an outpatient basis as well as pain control per PCP. Patient and daughter were counseled on supportive care at home, given return precautions and discharge in a stable condition. Lab Data 04/08/25 21:13 04/08/25 21:13 Radiology Impressions Ankle X-Ray 04/08/25 22:02 IMPRESSION: No acute fracture or dislocation. Foot X-Ray 04/08/25 22:02 IMPRESSION: No acute fracture or dislocation. Venous Duplex 04/08/25 23:17 IMPRESSION: No evidence of deep vein thrombosis. Laboratory Results WBC 9.26 10^3/uL (3.29-11.43) 04/08/25 21:13 RBC 4.79 10^6/uL (3.85-5.65) 04/08/25 21:13 Hgb 15.60 g/dL (11.27-16.99) 04/08/25 21:13 Hct 47.6 % (36-47) H 04/08/25 21:13 MCV 99.4 fl (85-98) H 04/08/25 21:13 MCH 32.6 pg (27-33) 04/08/25 21:13 MCHC 32.8 g/dL (30-55) 04/08/25 21:13 RDW 13.3 % (12.1-15.1) 04/08/25 21:13 Plt Count 258 10^3/cmm (157-399) 04/08/25 21:13 MPV 10.2 fL (7.4-10.4) 04/08/25 21:13 Neut % (Auto) 81.9 % 04/08/25 21:13 Lymph % (Auto) 12.1 % 04/08/25 21:13 Nance % (Auto) 5.5 % 04/08/25 21:13 Eos % (Auto) 0.0 % 04/08/25 21:13 Baso % (Auto) 0.1 % 04/08/25 21:13 Neut # (Auto) 7.58 10^3/uL (1.8-7.7) 04/08/25 21:13 Lymph # (Auto) 1.1 10^3/uL (0.8-4.8) 04/08/25 21:13 Nance # (Auto) 0.5 10^3/uL (0.2-0.9) 04/08/25 21:13 Eos # (Auto) 0.0 10^3/uL (0.0-0.8) 04/08/25 21:13 Baso # (Auto) 0.0 10^3/uL (0.0-0.1) 04/08/25 21:13 Nucleated RBC % (auto) 0 % 04/08/25 21:13 Nucleated RBCs # 0.0 /100WBC 04/08/25 21:13 D-Dimer 0.76 ug/mLFEU (0-0.59) H 04/08/25 22:48 Sodium 138 mmol/L (136-145) 04/08/25 21:13 Potassium 3.3 mmol/L (3.5-5.1) L 04/08/25 21:13 Chloride 101 mmol/L (98-107) 04/08/25 21:13 Carbon Dioxide 22 mmol/L (22-29) 04/08/25 21:13 Anion Gap 18.3 (5-19) 04/08/25 21:13 BUN 30 mg/dL (8-23) H 04/08/25 21:13 Creatinine 2.2 mg/dL (0.5-0.9) H 04/08/25 21:13 GFR Calculation 22.1 mL/min (90-130) L 04/08/25 21:13 Glucose 82 mg/dL (65-115) 04/08/25 21:13 Calculated Osmolality 291 mOsm/kg (285-295) 04/08/25 21:13 Calcium 9.5 mg/dL (8.5-10.5) 04/08/25 21:13 Total Bilirubin 0.3 mg/dL (0.15-1.2) 04/08/25 21:13 AST 19 U/L (0-32) 04/08/25 21:13 ALT 11 U/L (0-33) 04/08/25 21:13 Alkaline Phosphatase 84 U/L (35-105) 04/08/25 21:13 C-Reactive Protein 19.1 mg/L (0.0-4.9) H 04/08/25 21:13 Total Protein 6.7 g/dL (6.6-8.7) 04/08/25 21:13 Albumin 3.6 g/dL (3.5-5.2) 04/08/25 21:13 Globulin 3.1 g/dL (1.3-4.6) 04/08/25 21:13 Procalcitonin 0.11 ng/mL (0-0.5) 04/08/25 21:13 Urine Color Yellow (Yellow) 04/08/25 21:20 Urine Appearance Cloudy (CLEAR) A 04/08/25 21:20 Urine pH 5.5 (5-7) 04/08/25 21:20 Ur Specific Seth 1.015 (1.005-1.030) 04/08/25 21:20 Urine Protein Trace (Negative) A 04/08/25 21:20 Urine Glucose (UA) Negative (Normal) 04/08/25 21:20 Urine Ketones Negative (Negative) 04/08/25 21:20 Urine Blood Negative (Negative) 04/08/25 21:20 Urine Nitrate Negative (Negative) 04/08/25 21:20 Urine Bilirubin Negative (Negative) 04/08/25 21:20 Urine Urobilinogen 0.2 mg/dL (Negative) 04/08/25 21:20 Ur Leukocyte Esterase Trace (Negative) A 04/08/25 21:20 Urine RBC 6-10 /hpf (0-2) 04/08/25 21:20 Urine WBC 0-5 /hpf (0-5) 04/08/25 21:20 Ur Squamous Epith Cells 0-5 /hpf (0-5) 04/08/25 21:20 Calcium Oxalate Crystal 25-40 /hpf H 04/08/25 21:20 Amorphous Sediment Not Reportable 04/08/25 21:20 Urine Bacteria None seen /hpf (NONE) 04/08/25 21:20 Hyaline Casts 11.57 /lpf 04/08/25 21:20 All radiology interpretation(s) finalized by discharge Discharge Plan Discharge Patient Disposition: Home Clinical Impression: Chronic pain of left lower extremity, COPD exacerbation Condition: Stable Prescriptions: No Action dorzolamide 2 % drops 1 drp ophthalmic (eye) TID metoprolol tartrate 25 mg tablet 25 mg PO BID atorvastatin [Lipitor] 40 mg tablet 40 mg PO DAILY amiodarone 200 mg tablet 200 mg PO DAILY ondansetron 8 mg tablet,disintegrating 4 - 8 mg PO Q6H PRN (Reason: Nausea And Vomiting) spironolactone 25 mg tablet 50 mg PO DAILY Eliquis 5 mg tablet 5 mg PO BID Linzess 72 mcg capsule 72 mcg PO DAILY potassium chloride 10 mEq packet 10 meq PO DAILY memantine [Namenda] 10 mg tablet 10 mg PO BID 90 Days Qty: 180 3RF Rx Instructions: start after starter pack memantine 5-10 mg tablets,dose pack See Rx Instructions PO PER PKG DIR Qty: 49 0RF Rx Instructions: PO PER PKG DIR quetiapine [Seroquel] 25 mg tablet 25 mg PO DAILY Qty: 90 3RF Rx Instructions: at bed time levothyroxine 75 mcg tablet 75 mcg PO DAILY furosemide 20 mg tablet 20 mg PO TID latanoprost 0.005 % drops 1 drp ophthalmic (eye) QPM hydrocodone-acetaminophen 7.5-325 mg tablet 1 tab PO TID PRN (Reason: Pain) ferrous gluconate 324 mg (38 mg iron) tablet 324 mg PO DAILY Trelegy Ellipta 200-62.5-25 mcg blister with device 1 inh INHALATION DAILY pantoprazole 40 mg tablet,delayed release (DR/EC) 40 mg PO DAILY Discharge Orders: Discharge ED (Routine); Ordered 04/09/25 Ordered By: Shanthi Joy Referrals: Mega Martinez MD [Primary Care Provider, Family Practice] Patient Instructions: Chronic Pain, COPD, Opioid Safety, Pain Management, Patient Portal & Leah Instructions Activity Restrictions/Additional Instructions: Take 500mg of Tylenol in addition to your home pain medications that you have been prescribed. Continue to monitor your condition closely at home. If your condition worsens or additional concerns arise, please return to the emergency department for reassessment. Please follow up with your doctor by the end of this week. Talk to your doctor about further pain management if your pain is not controlled at home with what you have been prescribed. Print Language: Uzbek Coding Level of Care Code ED Ski Topper for Jordan Espinoza
--- NOTE | 2025-04-08 22:02 | XRR_ITS ---
PROCEDURE INFORMATION: Exam: XR Left Foot Exam date and time: 04/08/2025 10:12 PM Age: 69 years old Clinical indication: Injury or trauma; Fall; Blunt trauma; Foot; Left; Additional info: Anterior foot pain TECHNIQUE: Imaging protocol: Radiologic exam of the left foot. Views: 3 or more views. COMPARISON: [place] [id number] [place]TH 02/12/2025 2:58 PM FINDINGS: Bones/joints: No acute fracture or dislocation. Diffuse osseous demineralization. No Lisfranc malalignment. Soft tissues: Normal. XR/XR foot LT min 3V* [id number] IMPRESSION: No acute fracture or dislocation.
--- NOTE | 2025-04-08 22:02 | XRR_ITS ---
PROCEDURE INFORMATION: Exam: XR Left Ankle Exam date and time: 04/08/2025 10:12 PM Age: 69 years old Clinical indication: Injury or trauma; Fall; Blunt trauma; Ankle; Left; Additional info: Fall/ankle pain TECHNIQUE: Imaging protocol: Radiologic exam of the left ankle. Views: 3 or more views. COMPARISON: [place] [id number] ORTH 02/12/2025 2:58 PM FINDINGS: Bones/joints: No acute fracture or dislocation. Diffuse osseous demineralization. Small heel spur. Soft tissues: Normal. XR/XR ankle LT min 3V* [id number] IMPRESSION: No acute fracture or dislocation.
[2025-04-08 22:05] LABS: Procalcitonin 0.11 ng/mL (0-0.5)
[2025-04-08 22:06] VITALS: BP 154/108; PULSE 68; O2SAT 96
[2025-04-08 22:16] LABS: Alanine Aminotransferase 11 U/L (0-33); Albumin Level 3.6 g/dL (3.5-5.2); Alkaline Phosphatase 84 U/L (35-105); Anion Gap 18.3 (5-19); Aspartate Amino Transferase 19 U/L (0-32); Blood Urea Nitrogen 30 mg/dL (8-23); Calcium 9.5 mg/dL (8.5-10.5); Carbon Dioxide 22 mmol/L (22-29); Chloride 101 mmol/L (98-107); Creatinine Clr Calc Pharmacy 18.2286; Globulin 3.1 g/dL (1.3-4.6); Glucose 82 mg/dL (65-115); Osmolality Calculated 291 mOsm/kg (285-295); Potassium 3.3 mmol/L (3.5-5.1); Sodium 138 mmol/L (136-145); Total Protein 6.7 g/dL (6.6-8.7)
[2025-04-08 22:40] LABS: Glucose Urine UA Negative (Normal); Nitrate Urine Negative (Negative); Specific Gravity, Urine 1.015 (1.005-1.030)
[2025-04-08 22:43] LABS: Add Urine Microscopic? YES
[2025-04-08 22:50] VITALS: PULSE 60; RESP 18; O2SAT 95
[2025-04-08 23:01] LABS: UA Slide Review UA Slide Review Perf
[2025-04-08 23:06] VITALS: PULSE 60; RESP 18; O2SAT 98
--- NOTE | 2025-04-08 23:17 | USR_ITS ---
PROCEDURE INFORMATION: Exam: US Duplex Left Lower Extremity Veins, Limited Exam date and time: 04/08/2025 11:58 PM Age: 69 years old Clinical indication: Pain; Leg, lower; Left; Additional info: Lle pain, calf and mid thigh TECHNIQUE: Imaging protocol: Real-time duplex ultrasound of the left extremity with 2-D fuller scale, color Doppler flow and spectral waveform analysis including responses to compression and other maneuvers (when performed) with image documentation. Limited exam focused on the left lower extremity veins. COMPARISON: CR (LOW EXM, ) 04/08/2025 10:12 PM FINDINGS: Left deep veins: Unremarkable. The common femoral, femoral, proximal profunda femoral and popliteal veins are patent without thrombus. Normal Doppler waveforms. Normal compressibility and/or augmentation response. Superficial veins: Greater saphenous vein at the saphenofemoral junction is patent without thrombus. Soft tissues: Unremarkable. US/CV venous duplex [facility] [id number] IMPRESSION: No evidence of deep vein thrombosis.
[2025-04-08] MEDS: ondansetron 2 mg/ML SDV 2 mL 4 MG IVP (23:52)
[2025-04-08] MEDS: HYDROmorphone 0.5 MG/0.5 ML INJ 1 MG IVP (23:52)
== END 2025-04-09 01:58 | disposition home or self-care (01) ==
PROVIDERS: Emergency Provider Emergency Medicine; PCP Family Medicine
DX: M79.604 Pain in right leg (principal); J44.1 Chronic obstructive pulmonary disease with (acute) exacerbation; Z79.01 Long term (current) use of anticoagulants; Z72.0 Tobacco use; I10 Essential (primary) hypertension; Z85.89 Personal history of malignant neoplasm of other organs and systems
CPT/HCPCS: 36415; 73610; 73630; 80053; 81001; 84145; 85025; 85378; 86140; 93971; 94640; 96374; 96375; 99285; J1100; J1171; J2405; J9999

== ENCOUNTER → 2025-05-08 10:49 | Outpatient (BNVA) | payer MEDICARE, SELFPAY | PROVIDERS: PCP Family Medicine; Visit Provider Internal Medicine | DX: Z45.018 Encounter for adjustment and management of other part of cardiac pacemaker (principal) | CPT/HCPCS: 93296 ==

== ENCOUNTER 2025-05-15 13:35 | Emergency (ER) | payer MEDICARE, SELFPAY ==
[2025-05-15 13:41] VITALS: BP 114/78; PULSE 76; RESP 17; TEMP 36.8; O2SAT 91; BMI 18.3
[2025-05-15 15:05] LABS: Hematocrit 42.9 % (36-47); Hemoglobin 14.60 g/dL (11.27-16.99); Mean Corpuscular HGB Conc 34.0 g/dL (30-55); Mean Corpuscular Hemoglobin 32.9 pg (27-33); Mean Corpuscular Volume 96.6 fl (85-98); Nucleated Red Blood Cells % 0 %; Platelet Count 178 10^3/cmm (157-399); Red Blood Count 4.44 10^6/uL (3.85-5.65); White Blood Count 8.31 10^3/uL (3.29-11.43)
[2025-05-15 15:40] LABS: Alanine Aminotransferase 17 U/L (0-33); Albumin Level 3.4 g/dL (3.5-5.2); Alkaline Phosphatase 90 U/L (35-105); Anion Gap 16.0 (5-19); Aspartate Amino Transferase 27 U/L (0-32); Blood Urea Nitrogen 23 mg/dL (8-23); Calcium 8.9 mg/dL (8.5-10.5); Carbon Dioxide 23 mmol/L (22-29); Chloride 100 mmol/L (98-107); Globulin 2.7 g/dL (1.3-4.6); Glucose 89 mg/dL (65-115); NT Pro B Type Natriuretic Pept 5581 pg/mL (0-125); Osmolality Calculated 283 mOsm/kg (285-295); Potassium 4.0 mmol/L (3.5-5.1); Sodium 135 mmol/L (136-145); Total Protein 6.1 g/dL (6.6-8.7)
--- NOTE | 2025-05-15 15:58 | W.ED.EXTPRO ---
HPI - Extremity Problem General: Chief complaint: Extremity Problem,Nontraumatic Stated complaint: Both feet swelling L foot pain Time Seen by Provider: 05/15/25 15:45 History of Present Illness: 69-year-old female presents emergency room complaining of bilateral leg swelling for the last 3 weeks. She also tells me she is on hospice although she cannot confirm the diagnosis and tell me that she has a brain tumor she does not know where the original tumor is for out. She has bilateral leg swelling she has some Band-Aids on her feet but there is no underlying open wounds. She states she was seen recently and started on antibiotics. She did not had any fever sweats or chills. According to her medicine list she is on Lasix 20 mg 3 times a day. Reviewing her old records her creatinine had elevated significantly but is significantly improved today. Associated symptoms: Deny chest pain, fever(s) or rash Related Data Home Medications ?Medication ?Instructions ?Recorded ?Confirmed dorzolamide 2 % eye drops 1 drp ophthalmic (eye) TID 04/20/21 02/12/25 ferrous gluconate 324 mg (38 mg 324 mg PO DAILY 04/20/24 02/12/25 iron) tablet fluticasone fur. 200 mcg-umeclid 1 inh inhalation DAILY 04/20/24 02/12/25 62.5 mcg-vilant 25 mcg inhalat.powder (Trelegy Ellipta) hydrocodone 7.5 mg-acetaminophen 1 tab PO TID PRN Pain 04/20/24 02/12/25 325 mg tablet latanoprost 0.005 % eye drops 1 drp ophthalmic (eye) QPM 04/20/24 02/12/25 amiodarone 200 mg tablet 200 mg PO DAILY 07/31/24 02/12/25 atorvastatin 40 mg tablet (Lipitor) 40 mg PO DAILY 07/31/24 02/12/25 metoprolol tartrate 25 mg tablet 25 mg PO BID 07/31/24 02/12/25 ondansetron 8 mg disintegrating 4 - 8 mg PO Q6H PRN Nausea And 07/31/24 02/12/25 tablet Vomiting pantoprazole 40 mg tablet,delayed 40 mg PO DAILY 09/01/24 02/12/25 release furosemide 20 mg tablet 20 mg PO TID 10/05/24 02/12/25 levothyroxine 75 mcg tablet 75 mcg PO DAILY 10/05/24 02/12/25 apixaban 5 mg tablet (Eliquis) 5 mg PO BID 01/31/25 02/12/25 linaclotide 72 mcg capsule 72 mcg PO DAILY 01/31/25 02/12/25 (Linzess) potassium chloride 10 mEq oral 10 meq PO DAILY 01/31/25 02/12/25 packet spironolactone 25 mg tablet 50 mg PO DAILY 01/31/25 02/12/25 Previous Rx's ?Medication ?Instructions ?Recorded memantine 10 mg tablet (Namenda) 10 mg PO BID 90 days #180 tabs 01/24/25 memantine 5 mg-10 mg tablets in a See Rx Instructions PO PER PKG DIR 01/24/25 dose pack #49 ea quetiapine 25 mg tablet (Seroquel) 25 mg PO DAILY #90 tabs 01/24/25 furosemide 40 mg tablet (Lasix) 40 mg PO DAILY #30 tabs 05/15/25 Allergies Allergy/AdvReac Type Severity Reaction Status Date / Time orange juice Allergy Intermediate ADR-Vomitin Verified 04/08/25 17:22 g amoxicillin Allergy unk Verified 04/08/25 17:22 buspirone Allergy unk Verified 04/08/25 17:22 hydralazine Allergy coughing Verified 04/08/25 17:22 and nausea Penicillins Allergy shortness Verified 04/08/25 17:22 of breath povidone-iodine (From Allergy unk Verified 04/08/25 17:22 Betadine) soap (From Betadine) Allergy unk Verified 04/08/25 17:22 [id number] Reductase Allergy FLu like Verified 04/08/25 17:22 Inhibitor (Jwmmylq-[id number]-Bbx symptoms Reductase Inhibitor) carvedilol AdvReac Severe cough Verified 04/08/25 17:22 amlodipine AdvReac BLE edema Verified 04/08/25 17:22 valsartan AdvReac unknown Verified 04/08/25 17:22 Review of Systems Const: Denies: fever(s) or chills Card: Reports: edema and swelling of feet/ankles; Denies: chest pain Resp: Denies: dyspnea GI: Denies: abdominal pain : Denies: dysuria, urinary frequency or urinary urgency Musc: Denies: neck pain or back pain Skin/Breast: Reports: pruritus; Denies: rash PFSH ED PFSH: Medical History Carmen metatarsalgia, bilateral Chest pain Peripheral neuropathy Glaucoma Herpes genitalis 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 Brother CAD (coronary artery disease) Brother , 2 brothers of heart disease CAD (coronary artery disease) Denies family history of Diabetes Clotting disorder Dementia Hyperlipidemia Psychiatric illness Chronic kidney disease (CKD) Suicide Anesthesia complication Bleeding disorder Family history of premature coronary artery disease Lung disease Cancer Hypertension Stroke Social History Smoking and tobacco/nicotine status: current every day tobacco/nicotine user Alcohol intake: never Substance/Drug Use: never Physical Exam Const: GENERAL APPEARANCE: cooperative ORIENTATION/CONSCIOUSNESS: Yes awake, Yes oriented to person, Yes oriented to place and Yes oriented to time HENMT: COMMON NORMALS: normocephalic, atraumatic and hearing grossly normal bilaterally HEAD & SCALP: normocephalic and atraumatic Resp: COMMON NORMALS: normal respiratory effort, No retractions, No use of accessory muscles and clear to auscultation bilaterally AUSCULTATION: clear to auscultation bilaterally Cardio: COMMON NORMALS: regular rate, regular rhythm and No murmurs present (Cardio) RATE: regular rate RHYTHM: regular rhythm GI: COMMON NORMALS: Soft to palpation and No hepatosplenomegaly present AUSCULTATION: Yes normoactive bowel sounds PALPATION: Yes Soft to palpation, No Tenderness to palpation present (GI), No Guarding due to palpation present (GI) and Yes No hepatosplenomegaly present Extremity: COMMON NORMALS: normal to inspection, capillary refill normal and no calf tenderness GENERAL: Yes edema (3+ edema lower extremities bilaterally) Neuro: SENSORIUM/ORIENTATION: Yes oriented to person, Yes oriented to place and Yes oriented to time Skin: COMMON NORMALS: no rashes or lesions noted GENERAL SKIN EXAM: no rashes or lesions noted Course Vital Signs: Vital signs: Vital Signs Temperature 98.3 F 05/15/25 13:41 Pulse Rate 60 05/15/25 16:31 Respiratory Rate 17 05/15/25 13:41 Blood Pressure 117/75 05/15/25 16:31 Pulse Oximetry 94 05/15/25 16:31 Oxygen Delivery Me thod Nasal Cannula 05/15/25 16:31 Oxygen Flow Rate 2 05/15/25 16:31 MDM - Extremity (Nontraumatic) Medical Decision Making Medical decision making Social determinants: Difficulty transportation and understanding of medical issues I reviewed the patient's medical record. I reviewed the patient's current home meds. Alternate historians: Family members Differential diagnosis: Congestive heart failure, lower extremity edema, DVT, cellulitis Lab Review: No leukocytosis. Creatinine shows improvement from her recent creatinines down to 1 4. Previously had been over 3. Imaging: Reviewed previous imaging Assessment of risk Level of risk: Moderate Hospitalization considerations: No need for hospitalization Reexamination: Stable and unchanged Assessment and plan: Patient recently stopped her Lasix. Will restart instead of doing Lasix 20 mg 3 times a day Lasix 80 mg once daily. Follow-up with your primary care doctor in the next week to reevaluate. She has no signs of DVT at this time and had previously been evaluated for this recently. Additionally she is on apixaban. We contacted her hospice care team they report that she has a history of cholangiocarcinoma as well as history of brain tumor. Will discharge her home with the increased dose Lasix and follow-up with her primary care doctor in the week she elevate her legs and of her possible. Lab Data 05/15/25 14:45 05/15/25 14:45 Laboratory Results WBC 8.31 10^3/uL (3.29-11.43) 05/15/25 14:45 RBC 4.44 10^6/uL (3.85-5.65) 05/15/25 14:45 Hgb 14.60 g/dL (11.27-16.99) 05/15/25 14:45 Hct 42.9 % (36-47) 05/15/25 14:45 MCV 96.6 fl (85-98) 05/15/25 14:45 MCH 32.9 pg (27-33) 05/15/25 14:45 MCHC 34.0 g/dL (30-55) 05/15/25 14:45 RDW 14.9 % (12.1-15.1) 05/15/25 14:45 Plt Count 178 10^3/cmm (157-399) 05/15/25 14:45 MPV 9.7 fL (7.4-10.4) 05/15/25 14:45 Neut % (Auto) 74.5 % 05/15/25 14:45 Lymph % (Auto) 13.8 % 05/15/25 14:45 Foster % (Auto) 9.3 % 05/15/25 14:45 Eos % (Auto) 0.2 % 05/15/25 14:45 Baso % (Auto) 1.0 % 05/15/25 14:45 Neut # (Auto) 6.19 10^3/uL (1.8-7.7) 05/15/25 14:45 Lymph # (Auto) 1.2 10^3/uL (0.8-4.8) 05/15/25 14:45 Foster # (Auto) 0.8 10^3/uL (0.2-0.9) 05/15/25 14:45 Eos # (Auto) 0.0 10^3/uL (0.0-0.8) 05/15/25 14:45 Baso # (Auto) 0.1 10^3/uL (0.0-0.1) 05/15/25 14:45 Nucleated RBC % (auto) 0 % 05/15/25 14:45 Nucleated RBCs # 0.0 /100WBC 05/15/25 14:45 Sodium 135 mmol/L (136-145) L 05/15/25 14:45 Potassium 4.0 mmol/L (3.5-5.1) 05/15/25 14:45 Chloride 100 mmol/L (98-107) 05/15/25 14:45 Carbon Dioxide 23 mmol/L (22-29) 05/15/25 14:45 Anion Gap 16.0 (5-19) 05/15/25 14:45 BUN 23 mg/dL (8-23) 05/15/25 14:45 Creatinine 1.4 mg/dL (0.5-0.9) H 05/15/25 14:45 GFR Calculation 37.2 mL/min (90-130) L 05/15/25 14:45 Glucose 89 mg/dL (65-115) 05/15/25 14:45 Calculated Osmolality 283 mOsm/kg (285-295) L 05/15/25 14:45 Calcium 8.9 mg/dL (8.5-10.5) 05/15/25 14:45 Total Bilirubin 0.5 mg/dL (0.15-1.2) 05/15/25 14:45 AST 27 U/L (0-32) 05/15/25 14:45 ALT 17 U/L (0-33) 05/15/25 14:45 Alkaline Phosphatase 90 U/L (35-105) 05/15/25 14:45 NT-Pro-B Natriuret Pep 5581 pg/mL (0-125) H 05/15/25 14:45 Total Protein 6.1 g/dL (6.6-8.7) L 05/15/25 14:45 Albumin 3.4 g/dL (3.5-5.2) L 05/15/25 14:45 Globulin 2.7 g/dL (1.3-4.6) 05/15/25 14:45 No radiology studies performed this visit Discharge Plan Discharge Patient Disposition: Home Clinical Impression: Leg swelling Condition: Stable Prescriptions: New furosemide [Lasix] 40 mg tablet 40 mg PO DAILY Qty: 30 0RF No Action dorzolamide 2 % drops 1 drp ophthalmic (eye) TID metoprolol tartrate 25 mg tablet 25 mg PO BID atorvastatin [Lipitor] 40 mg tablet 40 mg PO DAILY amiodarone 200 mg tablet 200 mg PO DAILY ondansetron 8 mg tablet,disintegrating 4 - 8 mg PO Q6H PRN (Reason: Nausea And Vomiting) spironolactone 25 mg tablet 50 mg PO DAILY Eliquis 5 mg tablet 5 mg PO BID Linzess 72 mcg capsule 72 mcg PO DAILY potassium chloride 10 mEq packet 10 meq PO DAILY memantine [Namenda] 10 mg tablet 10 mg PO BID 90 Days Qty: 180 3RF Rx Instructions: start after starter pack memantine 5-10 mg tablets,dose pack See Rx Instructions PO PER PKG DIR Qty: 49 0RF Rx Instructions: PO PER PKG DIR quetiapine [Seroquel] 25 mg tablet 25 mg PO DAILY Qty: 90 3RF Rx Instructions: at bed time levothyroxine 75 mcg tablet 75 mcg PO DAILY furosemide 20 mg tablet 20 mg PO TID latanoprost 0.005 % drops 1 drp ophthalmic (eye) QPM hydrocodone-acetaminophen 7.5-325 mg tablet 1 tab PO TID PRN (Reason: Pain) ferrous gluconate 324 mg (38 mg iron) tablet 324 mg PO DAILY Trelegy Ellipta 200-62.5-25 mcg blister with device 1 inh INHALATION DAILY pantoprazole 40 mg tablet,delayed release (DR/EC) 40 mg PO DAILY Discharge Orders: Discharge ED (Routine); Ordered 05/15/25 Ordered By: Francis Cortez Referrals: Mega Martinez MD [Primary Care Provider, Family Practice] Discharge Diet: Low Salt Discharge Activity: Increase activity as tolerated Patient Instructions: Opioid Safety, Pain Management, Patient Portal & Leah Instructions Activity Restrictions/Additional Instructions: Thank you for choosing [facility] for your healthcare needs today. It is very important that you follow up as instructed or that you return to the Emergency Department should you have concerns or if your condition changes or worsens in any way. Emergency department visits are focused on emergent conditions, in some cases you may require further evaluation on an outpatient basis. You are seen emergency room swelling in legs will discharge with Lasix 80 mg once daily should follow-up with your doctor within the next week to reevaluate elevate your leg whenever possible. Continue your current antibiotics. (Please note that included in your discharge packet is information concerning opioid safety and pain management. This information is given to all patients were discharged from the ER regardless of their discharge diagnosis or the medicines they usually take or are prescribed.) Print Language: Citizen [place] Coding Level of Care Code ED Material Requisitioner for Jordan Espinoza
[2025-05-15 16:31] VITALS: BP 117/75; PULSE 60; O2SAT 94
[2025-05-15] MEDS: FUROsemide 10 mg/mL SDV 4mL 40 MG IVP (16:33)
[2025-05-15 17:35] VITALS: BP 117/75; PULSE 60; O2SAT 94
== END 2025-05-15 23:52 | disposition home or self-care (01) ==
PROVIDERS: Emergency Medicine; Emergency Provider Family Medicine; PCP Family Medicine
DX: R60.0 Localized edema (principal); Z79.01 Long term (current) use of anticoagulants; Z72.0 Tobacco use; I10 Essential (primary) hypertension; Z85.89 Personal history of malignant neoplasm of other organs and systems
CPT/HCPCS: 36415; 80053; 83880; 85025; 96374; 99284; J1938

== ENCOUNTER → 2025-05-22 13:38 | Outpatient (BNVA) | payer MEDICARE, SELFPAY | PROVIDERS: PCP Family Medicine; Visit Provider Podiatrist Foot & Ankle Surgery | DX: I73.9 Peripheral vascular disease, unspecified (principal); L60.3 Nail dystrophy; L84 Corns and callosities | CPT/HCPCS: 11056; 11721 ==